=== PATIENT | female | born 1950 | race Caucasian/White ===

== ENCOUNTER 2018-02-22 14:25 | Observation (INO) | payer OTHER, SELFPAY ==
[2018-02-22] VITALS (14 sets, daily range): BP systolic 140–231; BP diastolic 55–88; PULSE 53–66; RESP 12–18; TEMP 36.6–36.8; O2SAT 94–98; BMI 51.9; BMI 50.3
--- NOTE | 2018-02-22 15:07 | CT_ITS ---
STUDY: CT BRAIN WITHOUT CONTRAST REASON FOR EXAM: Female, 67 years old. Dizzy x 2 days, nausea RADIATION DOSAGE (If Supplied By Facility): CTDIvol = ( 44.99 ) mGy, DLP = ( 812.98 ) mGycm TECHNIQUE: Transaxial CT imaging of the brain was performed without administration of intravenous contrast material. Individualized dose optimization techniques were used for this CT. COMPARISON: None. FINDINGS: Normal soft tissue structures. Normal calvarium. Normal size ventricles and extra-axial spaces for the patient's age. There are areas of decreased attenuation within the white matter tracts of the supratentorial brain, consistent with microvascular disease changes. Normal basal ganglia and thalami. Normal brainstem. Normal cerebellum. There is no intracranial hemorrhage. There are no findings of an acute ischemic infarction. Normal visualized paranasal sinuses. CT/Brain/Head without Contrast IMPRESSION: Chronic involutional changes of the brain. Electronically Signed: Rebekah Sánchez MD at 15:48 EDT Tel , Service support ,
--- NOTE | 2018-02-22 15:07 | EKG12_ITS ---
Test Reason : DIZZINESS Blood Pressure : / mmHG Vent. Rate : 059 BPM Atrial Rate : 059 BPM P-R Int : 238 ms QRS Dur : 102 ms QT Int : 440 ms P-R-T Axes : 070 -38 023 degrees QTc Int : 435 ms Sinus bradycardia with 1st degree A-V block Left axis deviation Poor R wave progression Abnormal ECG Confirmed by BETH GRACIA, BRAYDEN ([id number]), editorial specialist YESSICA HUMPHRIES ([id number]) on 02/24/2018 2:44:04 PM Referred By: PONCHO Confirmed By:BRAYDEN CAMPOS MD
--- NOTE | 2018-02-22 15:11 | RAD_ITS ---
STUDY: X-RAY CHEST REASON FOR EXAM: Female, 67 years old. COUGH, DIZZINESS TECHNIQUE: Single AP portable view of the chest. COMPARISON: None. FINDINGS: The lungs are clear and expanded. There is no demonstrated pleural abnormality. There is moderate cardiac enlargement. Normal mediastinum and colt. Normal visualized pulmonary arteries. Normal visualized aortic arch and descending thoracic aorta. Normal visualized thoracic spine. Normal visualized ribs, clavicles, and shoulders. There is no demonstrated abnormality of the visualized soft tissue structures of the upper abdomen. RAD/Chest 1 View IMPRESSION: There is moderate cardiac enlargement. Electronically Signed: Rebekah Sánchez MD at 15:38 EDT Tel , Service support ,
--- NOTE | 2018-02-22 15:12 | ED.DCSUM_ITS ---
- ER Visit Summary Date of Service: 02/22/18 Chief Complaint: [dizziness] History of Present Illness: The patient is a 67 F [who presents the emergency department with intermittent dizziness. Last 2 morning she woke up and felt very off balance. It lasted for a couple hours and then went away. This morning she had it as well but it has not gone away and seemed to get worse. She is also developed a headache some mild shortness of breath and nausea. She has a history of a stroke in 2016 in which she had left-sided numbness and weakness. She states it was preceded by similar symptoms. 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 She denies any chest pain. There is been no swelling. She had her blood pressure done at the lung doctor this morning and it was 128/63 reportedly. She does have some mild tingling in her hands bilaterally. No fevers chills abdominal pain or other symptoms. She is a remote history of smoking but quit 46 years ago] Physical Examination: [] Blood pressure 231/72 heart rate 55 WN WD NAD overweight PERRL EOMI MMM NECK supple and nontender, no masses RRR no murmur rub or gallop, no peripheral edema, symmetric radial pulses CTAB no respiratory distress ABDOMEN is soft and nontender, normal bowel sounds, no distension, no rebound or guarding SKIN is warm and dry no rashes Alert and Oriented x3, CN II-XII in tact, no motor or sensory deficits, gait normal No lymphadenopathy Mild dizziness with Hallpike regino bilaterally no appreciable nystagmus Test Results: [] Emergency Department Course and Treatment: [EKG is sinus at a rate of 59 with first-degree AV block and left axis deviation no acute ischemic changes. Screening labs were unremarkable. CT shows chronic involutional changes. On reevaluation after 10 of hydralazine her blood pressure did initially improved to 185 systolic however then increase to 207 systolic again. I did ask her to walk in a straight line she felt like everything was moving to the right and was unstable she was unable to walk without holding onto something. At this time given her malignant hypertension as well as her sensation of everything moving to the right I do think she requires admission for further workup for posterior circulation stroke and control of her blood pressure] Treatment Plan: [] Disposition: [Admit] Impression: [1. Disequilibrium 2. Malignant hypertension] This note was generated with [employer] dictation software. It may contain incorrect words, spelling, and punctuation that were not noted in review of the chart prior to signing ED Disposition - Plan for ED Patient: Chief Complaint: Dizziness Referrals: Les Valenzuela MD [Primary Care Provider] -
[2018-02-22] MEDS: hydrALAZINE 20 MG/ML Vial 10 MG IV ×2 (15:23→16:55)
[2018-02-22 15:24] LABS: Absolute Lymphocyte Count 1.84 X10^3/ul (0.83-4.51); Absolute Neutrophil Count 4.7 X10^3/uL (2.0-7.7); Basophil# 0.01 X10^3/uL; Basophil% 0.1 % (0-1); Eosinophil# 0.15 X10^3/uL; Hematocrit 38.9 % (37-47); Hemoglobin 12.6 g/dl (12.0-15.0); Lymphocyte # 1.84 X10^3/ul (4.0); Lymphocyte % 24.6 % (19-41); Mean Corp Hgb Conc 32.4 g/gl (32-36); Mean Corpuscular Hgb 32.6 pg (27.0-32.0); Mean Corpuscular Volume 100.8 fL (81-99); Mean Platelet Vol. 8.9 fl (6.2-12.0); Monocyte# 0.73 X10^3/uL; Monocyte% 9.8 % (0-10); Neutrophil # 4.74 X10^3/uL (2.7-7.7); Neutrophil % 63.4 % (47-70); Platelet Count 314 K/mm3 (150-450); Red Blood Count 3.86 M/mm3 (4.2-5.4); White Blood Count 7.5 K/mm3 (4.4-11.0)
[2018-02-22 15:28] LABS: International Normalized Ratio 1.1; Partial Thromboplast Time 31.5 Seconds (24.1-36.2); Prothrombin Time (Protime)PT. 14.1 SECONDS (11.7-14.9)
--- NOTE | 2018-02-22 15:29 | NURSING ---
NO OLD EKGS
[2018-02-22 15:33] LABS: Anion Gap 6 (5-15); BUN 13 mg/dL (7-18); BUN/Creat Ratio 14.5 RATIO (10-20); Calcium,Total 8.8 mg/dL (8.5-10.1); Chloride 104 mmol/L (98-107); EST Glomerular Filtration Rate 67 mL/min (>60); Est Glom Filt Rate - Afr Amer 81 mL/min (>60); Glucose 84 mg/dL (74-106); Potassium 4.1 mmol/L (3.5-5.1); Sodium Level 139 mmol/L (136-145)
--- NOTE | 2018-02-22 15:35 | CASEMGMT ---
Social Work Note In to meet with pt for initial assessment and pt being transported down to radiology for imaging. Jenna Shane, MAILING MANAGER, PIPE INSTALLER
[2018-02-22 15:42] LABS: POSITIVE COUNT NO; POSITIVE DIFFERENTIAL NO; POSITIVE MORPHOLOGY NO
--- NOTE | 2018-02-22 15:48 | CASEMGMT ---
Social Work Note Face to face with pt and her spouse and daughter. Introduced self and role at [facility]. The pt reports to live with her spouse in a one-story home with 5 [address] and handrails on either side. Denies access issues and DME consists of a rollator and cane. She uses her cane at her baseline. Pt reports to have access to transportation and is independent with ADL's. Confirms that her PCP is Dr. Valenzuela and she also sees Dr. Melara. Claims that she is to see Dr. Echevarria at [facility] in March. Her preferred pharmacy is [facility]. Educated to [facility] Med to Bed program from convenience at discharge. Pt made aware that RN CM will f/u with d/c planning. No needs anticipated at this time. Jenna Shane, COAL FEEDER OPERATOR, TOOTH CUTTER PINION
--- NOTE | 2018-02-22 16:45 | NURSING ---
PCU HYPERTENSIVE URGENCY [facility]
[2018-02-22] MEDS: Aspirin 81 MG TAB.CHEW 162 MG PO (16:55)
--- NOTE | 2018-02-22 16:56 | PCM.HP.STD ---
Problem List (1) History of lung cancer Status: Chronic Comment: Status post left lower lobe pneumectomy. (2) History of stroke Status: Chronic (3) Chronic thrombocytopenia Status: Chronic (4) Hyperlipidemia Status: Chronic (5) Anxiety Status: Chronic (6) Depression Status: Chronic (7) Type 2 diabetes mellitus Status: Chronic History of Present Illness Date of Admission: 02/22/18 Chief Complaint: Dizziness. The patient is a 67 year old F with past medical history as mentioned above presented to the ER because of dizziness. Her symptoms started 3 days ago with dizziness, described as spinning sensation and sometimes as unsteadiness, associated with frontal headache and off balance, aggravated by standing and minimally relieved with rest. In the first day, it was intermittent but has been increasing since yesterday and got worse this morning. She reported associated mild nausea without vomiting. She denied slurred speech, facial droop or mouth deviation. She denied focal arm or leg weakness. This morning, she checked her blood pressure at was 128/84. She stated that usually her blood pressure has been around 140-150 systolic but never been this much high today. In the ER, maximum blood pressure was 231/72. She received 2 dose of IV hydralazine and blood pressure remains above 200 systolic. Other vital signs are stable. Routine blood work was unremarkable. EKG revealed normal sinus rhythm first degree AV block, DC interval of 238 ms, no acute changes. Troponin is negative. CT scan brain showed no acute findings. Chest x-ray showed mild cardiomegaly, no acute infiltrate, consolidation or effusion. She is being admitted for hypertensive urgency with concern for posterior circulation stroke. Past Medical History Past Medical History (Chronic Problems): Chronic Problems Hypertension (Chronic) History of lung cancer (Chronic) Status post left lower lobe pneumectomy. History of stroke (Chronic) Chronic thrombocytopenia (Chronic) Hyperlipidemia (Chronic) Anxiety (Chronic) Depression (Chronic) Type 2 diabetes mellitus (Chronic) Allergies No Known Allergies Allergy (Verified 02/22/18 14:27) Home Medications: Ambulatory Orders Medication Instructions Recorded Alendronate Sodium [Alendronate 70 mg PO NICKERSON 02/22/18 Sodium] Amlodipine [Norvasc] 10 mg PO DAILY 02/22/18 Aspirin 81 mg PO DAILY 02/22/18 Fluoxetine HCl [Fluoxetine HCl] 40 mg PO DAILY 02/22/18 Hydroxyurea [Hydrea] 500 mg PO DAILY 02/22/18 Hydroxyzine HCl 25 mg PO TID PRN PRN 02/22/18 Lisinopril [Zestril] 5 mg PO DAILY 02/22/18 Lorazepam [Ativan] 0.5 mg PO BID PRN PRN 02/22/18 Metformin HCl [Metformin HCl ER] 500 mg PO BID 02/22/18 Metoprolol Tartrate [Lopressor 100 mg PO BID 02/22/18 (beta padmaja)] Simvastatin 20 mg PO QHS 02/22/18 Surgical History: noncontributory Psychiatric History: Anxiety, Depression 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 Denies: Difficulty Hearing, Ear Pain, Eye Pain, Nasal Congestion, Sore Throat Cardiovascular: Reports: Light Headedness. Denies: Chest Pain, Chest Pressure, Chest Tightness, Heaviness, Orthopnea, Syncope Respiratory: Denies: Cough, Hemoptysis, Pleuritic Pain, Shortness of Breath, Sputum production Gastrointestinal: Reports: Nausea. Denies: Abdominal Pain, Constipation, Diarrhea, Vomiting Genitourinary: Denies: Dysuria, Frequency, Hematuria Musculoskeletal: Denies: Arm Pain, Back Pain, Foot Pain Skin: Denies: Dryness, Rash Neurological: Reports: Balance problems, Headaches. Denies: Double vision, Slurred speech, Confusion, Incoordination, Numbness, Tingling, Tremor Psychiatric: Reports: Anxiety, Depression Endocrine: Denies: Change in Body Habitus, Polydipsia VTE Information - Inpt Only VTE Present on Admission: No VTE Mechan Device Prophylaxis: None VTE Pharm Prophylaxis ordered?: Yes - Physical Exam General: Alert, Oriented x3, Cooperative, No apparent distress HEENT: Atraumatic, PERRLA, EOMI, Normocephalic Oral: Moist Mucosa, No Gingival or Mucosal Lesions/ Ulcerations Neck: Supple, No JVD, Negative Carotid Bruits, Trachea Midline, Thyroid Normal Size and Texture Lungs: Clear to auscultation, No rhonchi, No wheeze, No rales, Diminished Cardiovascular: Regular rate, Regular Rhythm, Normal S1, Normal S2, No murmurs Abdomen: Bowel Sounds Present, Soft, Non Tender, Non-Distended, No Hepato-splenomegaly, Obese Extremities: No clubbing, No cyanosis, No edema Skin: No rashes, No breakdown Lymphatic: No Cervical, Supraclavicular, or Inguinal Adenopathy Neurological: Cranial nerves II-XII grossly intact, Motor Exam 5/5 strength throughout Psych/Mental Status: Normal Affect, Appropriate, Alert and oriented to time, place, person, mood and affect Vital Signs Temp Pulse Resp BP Pulse Ox 97.8 F 59 L 14 207/72 H 97 02/22/18 14:47 02/22/18 16:07 02/22/18 16:07 02/22/18 16:07 02/22/18 16:07 Oxygen Delivery Method Room Air Weight: 274 lb 14.663 oz Body Mass Index (BMI) 51.9 Laboratory Tests Past 24 Hrs 02/22/18 02/22/18 02/22/18 14:53 14:53 14:53 WBC 7.5 RBC 3.86 L Hgb 12.6 Hct 38.9 MCV 100.8 H MCH 32.6 H MCHC 32.4 RDW 14.0 RDW Differential 51.0 H Plt Count 314 MPV 8.9 Immature Gran % (Auto) 0.100 Neut % (Auto) 63.4 Lymph % (Auto) 24.6 [place] % (Auto) 9.8 Eos % (Auto) 2.0 Baso % (Auto) 0.1 Absolute Neuts (auto) 4.7 Absolute Lymphs (auto) 1.84 Total Counted Not Reportable PT 14.1 INR 1.1 APTT 31.5 Sodium 139 Potassium 4.1 Chloride 104 Carbon Dioxide 29.0 Anion Gap 6 BUN 13 Creatinine 0.90 Estim Creat Clear Calc 46.40 Est GFR (MDRD) Af Amer 81 Est GFR (MDRD) Non-Af 67 BUN/Creatinine Ratio 14.5 Glucose 84 Calcium 8.8 Troponin I < 0.015 Clinical Impression(s) from Imaging Studies Brain CT 02/22/18 15:07 IMPRESSION: Chronic involutional changes of the brain. Electronically Signed: Rebekah Sánchez MD at 15:48 EDT Tel , Service support , Chest X-Ray 02/22/18 15:11 IMPRESSION: There is moderate cardiac enlargement. Electronically Signed: Rebekah Sánchez MD at 15:38 EDT Tel , Service support , Assessment/Plan This is a 67 years old female patient presented to the emergency room because of dizziness with headache and she was found to have highly elevated blood pressure consistent with hypertensive emergency in addition to headache, vertigo, off balance symptoms and she is being admitted for treatment and evaluation for possible posterior circulation stroke. #1 hypertensive urgency: Maximum blood pressure was 231/72 upon arrival to ER. According to the patient, it was 128/84 at home. Usually, blood pressure runs around 140-[address] scan brain without acute infarction or hemorrhage. EKG showed normal sinus rhythm with first-degree AV block, no acute changes. Troponin is negative. BUN and creatinine are normal. Plan: Admit to PCU, cardiac monitoring, close monitoring of blood pressure, start IV hydralazine every 4 hours as needed, increase lisinopril to 20 mg p.o. twice daily, continue Norvasc and metoprolol, MRI brain, repeat CBC and BMP tomorrow morning, PT OT evaluation and treatment. #2 dizziness/vertigo/off balance: It is not clear if those symptoms are due to high blood pressure or because of other etiology such as posterior dislocation stroke. She has no focal deficit on exam. Plan: Gradual treatment of blood pressure, goal blood pressure this time is 160/90, MRI brain. #3 hypertension: Uncontrolled at this time, plan as above. #4 type 2 diabetes mellitus: ADA diet, Accu-Cheks, insulin sliding scale, continue metformin. #5 history of stroke: Plan as above, continue aspirin and statins. #6 anxiety/depression: Continue fluoxetine and Ativan. #7 chronic thrombocytopenia: She is on hydroxyurea, platelet count is normal. #8 history of lung cancer: Status post left lower lobe pneumectomy, in remission. #9 DVT prophylaxis: Subcu Lovenox. This note was generated with [employer] software. It may contain incorrect words, spelling, and punctuation that were not noted in checking the note before signing. Code Visit Inpatient E&M: 80815 Init Hosp L3
--- NOTE | 2018-02-22 17:03 | HP.PCM_ITS ---
Problem List (1) History of lung cancer Status: Chronic Comment: Status post left lower lobe pneumectomy. (2) History of stroke Status: Chronic (3) Chronic thrombocytopenia Status: Chronic (4) Hyperlipidemia Status: Chronic (5) Anxiety Status: Chronic (6) Depression Status: Chronic (7) Type 2 diabetes mellitus Status: Chronic History of Present Illness Date of Admission: 02/22/18 Chief Complaint: Dizziness. The patient is a 67 year old F with past medical history as mentioned above presented to the ER because of dizziness. Her symptoms started 3 days ago with dizziness, described as spinning sensation and sometimes as unsteadiness, associated with frontal headache and off balance, aggravated by standing and minimally relieved with rest. In the first day, it was intermittent but has been increasing since yesterday and got worse this morning. She reported associated mild nausea without vomiting. She denied slurred speech, facial droop or mouth deviation. She denied focal arm or leg weakness. This morning, she checked her blood pressure at was 128/84. She stated that usually her blood pressure has been around 140-150 systolic but never been this much high today. In the ER, maximum blood pressure was 231/72. She received 2 dose of IV hydralazine and blood pressure remains above 200 systolic. Other vital signs are stable. Routine blood work was unremarkable. EKG revealed normal sinus rhythm first degree AV block, ME interval of 238 ms, no acute changes. Troponin is negative. CT scan brain showed no acute findings. Chest x-ray showed mild cardiomegaly, no acute infiltrate, consolidation or effusion. She is being admitted for hypertensive urgency with concern for posterior circulation stroke. Past Medical History Past Medical History (Chronic Problems): Chronic Problems Hypertension (Chronic) History of lung cancer (Chronic) Status post left lower lobe pneumectomy. History of stroke (Chronic) Chronic thrombocytopenia (Chronic) Hyperlipidemia (Chronic) Anxiety (Chronic) Depression (Chronic) Type 2 diabetes mellitus (Chronic) Allergies No Known Allergies Allergy (Verified 02/22/18 14:27) Home Medications: Ambulatory Orders Medication Instructions Recorded Alendronate Sodium [Alendronate 70 mg PO NICKERSON 02/22/18 Sodium] Amlodipine [Norvasc] 10 mg PO DAILY 02/22/18 Aspirin 81 mg PO DAILY 02/22/18 Fluoxetine HCl [Fluoxetine HCl] 40 mg PO DAILY 02/22/18 Hydroxyurea [Hydrea] 500 mg PO DAILY 02/22/18 Hydroxyzine HCl 25 mg PO TID PRN PRN 02/22/18 Lisinopril [Zestril] 5 mg PO DAILY 02/22/18 Lorazepam [Ativan] 0.5 mg PO BID PRN PRN 02/22/18 Metformin HCl [Metformin HCl ER] 500 mg PO BID 02/22/18 Metoprolol Tartrate [Lopressor 100 mg PO BID 02/22/18 (beta padmaja)] Simvastatin 20 mg PO QHS 02/22/18 Surgical History: noncontributory Psychiatric History: Anxiety, Depression PATIENT NAVIGATOR History: No pertinent PATIENT NAVIGATOR history Lives: Spouse/ Significant Other Smoking Status: Former smoker Alcohol: Rare Drugs: None - *Family History Maternal History Items: No pertinent history Paternal History Items: No pertinent history Review of Systems Constitutional: Denies: Anorexia, Chills, Fever, Weakness Eyes: Denies: Blurred vision, Double vision, Drainage, Redness HEENT: Reports: Head Aches. Denies: Difficulty Hearing, Ear Pain, Eye Pain, Nasal Congestion, Sore Throat Cardiovascular: Reports: Light Headedness. Denies: Chest Pain, Chest Pressure, Chest Tightness, Heaviness, Orthopnea, Syncope Respiratory: Denies: Cough, Hemoptysis, Pleuritic Pain, Shortness of Breath, Sputum production Gastrointestinal: Reports: Nausea. Denies: Abdominal Pain, Constipation, Diarrhea, Vomiting Genitourinary: Denies: Dysuria, Frequency, Hematuria Musculoskeletal: Denies: Arm Pain, Back Pain, Foot Pain Skin: Denies: Dryness, Rash Neurological: Reports: Balance problems, Headaches. Denies: Double vision, Slurred speech, Confusion, Incoordination, Numbness, Tingling, Tremor Psychiatric: Reports: Anxiety, Depression Endocrine: Denies: Change in Body Habitus, Polydipsia VTE Information - Inpt Only VTE Present on Admission: No VTE Mechan Device Prophylaxis: None VTE Pharm Prophylaxis ordered?: Yes - Physical Exam General: Alert, Oriented x3, Cooperative, No apparent distress HEENT: Atraumatic, PERRLA, EOMI, Normocephalic Oral: Moist Mucosa, No Gingival or Mucosal Lesions/ Ulcerations Neck: Supple, No JVD, Negative Carotid Bruits, Trachea Midline, Thyroid Normal Size and Texture Lungs: Clear to auscultation, No rhonchi, No wheeze, No rales, Diminished Cardiovascular: Regular rate, Regular Rhythm, Normal S1, Normal S2, No murmurs Abdomen: Bowel Sounds Present, Soft, Non Tender, Non-Distended, No Hepato- splenomegaly, Obese Extremities: No clubbing, No cyanosis, No edema Skin: No rashes, No breakdown Lymphatic: No Cervical, Supraclavicular, or Inguinal Adenopathy Neurological: Cranial nerves II-XII grossly intact, Motor Exam 5/5 strength throughout Psych/Mental Status: Normal Affect, Appropriate, Alert and oriented to time, place, person, mood and affect Vital Signs Temp Pulse Resp BP Pulse Ox 97.8 F 59 L 14 207/72 H 97 02/22/18 14:47 02/22/18 16:07 02/22/18 16:07 02/22/18 16:07 02/22/18 16:07 Oxygen Delivery Method Room Air Weight: 274 lb 14.663 oz Body Mass Index (BMI) 51.9 Laboratory Tests Past 24 Hrs 02/22/18 02/22/18 02/22/18 14:53 14:53 14:53 WBC 7.5 RBC 3.86 L Hgb 12.6 Hct 38.9 MCV 100.8 H MCH 32.6 H MCHC 32.4 RDW 14.0 RDW Differential 51.0 H Plt Count 314 MPV 8.9 Immature Gran % (Auto) 0.100 Neut % (Auto) 63.4 Lymph % (Auto) 24.6 [place] % (Auto) 9.8 Eos % (Auto) 2.0 Baso % (Auto) 0.1 Absolute Neuts (auto) 4.7 Absolute Lymphs (auto) 1.84 Total Counted Not Reportable PT 14.1 INR 1.1 APTT 31.5 Sodium 139 Potassium 4.1 Chloride 104 Carbon Dioxide 29.0 Anion Gap 6 BUN 13 Creatinine 0.90 Estim Creat Clear Calc 46.40 Est GFR (MDRD) Af Amer 81 Est GFR (MDRD) Non-Af 67 BUN/Creatinine Ratio 14.5 Glucose 84 Calcium 8.8 Troponin I < 0.015 Clinical Impression(s) from Imaging Studies Brain CT 02/22/18 15:07 IMPRESSION: Chronic involutional changes of the brain. Electronically Signed: Rebekah Sánchez MD at 15:48 EDT Tel , Service support , Chest X-Ray 02/22/18 15:11 IMPRESSION: There is moderate cardiac enlargement. Electronically Signed: Rebekah Sánchez MD at 15:38 EDT Tel , Service support , Assessment/Plan This is a 67 years old female patient presented to the emergency room because of dizziness with headache and she was found to have highly elevated blood pressure consistent with hypertensive emergency in addition to headache, vertigo , off balance symptoms and she is being admitted for treatment and evaluation for possible posterior circulation stroke. #1 hypertensive urgency: Maximum blood pressure was 231/72 upon arrival to ER. According to the patient, it was 128/84 at home. Usually, blood pressure runs around 140-[address] scan brain without acute infarction or hemorrhage. EKG showed normal sinus rhythm with first-degree AV block, no acute changes. Troponin is negative. BUN and creatinine are normal. Plan: Admit to PCU, cardiac monitoring, close monitoring of blood pressure, start IV hydralazine every 4 hours as needed, increase lisinopril to 20 mg p.o. twice daily, continue Norvasc and metoprolol, MRI brain, repeat CBC and BMP tomorrow morning , PT OT evaluation and treatment. #2 dizziness/vertigo/off balance: It is not clear if those symptoms are due to high blood pressure or because of other etiology such as posterior dislocation stroke. She has no focal deficit on exam. Plan: Gradual treatment of blood pressure, goal blood pressure this time is 160/90, MRI brain. #3 hypertension: Uncontrolled at this time, plan as above. #4 type 2 diabetes mellitus: ADA diet, Accu-Cheks, insulin sliding scale, continue metformin. #5 history of stroke: Plan as above, continue aspirin and statins. #6 anxiety/depression: Continue fluoxetine and Ativan. #7 chronic thrombocytopenia: She is on hydroxyurea, platelet count is normal. #8 history of lung cancer: Status post left lower lobe pneumectomy, in remission. #9 DVT prophylaxis: Subcu Lovenox. This note was generated with [employer] software. It may contain incorrect words, spelling, and punctuation that were not noted in checking the note before signing. Code Visit Inpatient E&M: 95307 Init Hosp L3
--- NOTE | 2018-02-22 17:34 | MRI_ITS ---
STUDY: MRI BRAIN WITHOUT CONTRAST REASON FOR EXAM: Female, 67 years old. Vertigo. Hypertension urgency versus stroke. TECHNIQUE: Standardized multiplanar fat and water weighted pulse sequences were obtained. Overall limited exam secondary to motion artifact. COMPARISON: None. FINDINGS: There is mild cerebral atrophy with widening of the extra-axial spaces and ventricular dilatation. There are a limited number of small white matter hyperintensities, distributed throughout the deep white matter tracts of the cerebral hemispheres, consistent with mild chronic white matter ischemic changes. Normal bilateral basal ganglia. Normal thalami. There is no extra-axial fluid accumulation. Normal flow voids within the major intracranial circulation suggesting patency by spin echo criteria. Normal sella turcica, pituitary gland, infundibular stalk, optic chiasm and hypothalamus. Normal tectal plate and pineal gland. Normal midbrain, elias and medulla. Normal cerebellum. Normal basal cisterns. Normal bilateral temporal bones. Normal bilateral internal auditory canals. No demonstrated orbital abnormality, within the constraints of a routine brain study. Normal visualized paranasal sinuses. Normal calvarium and skull base. Normal visualized soft tissue structures. Normal visualized upper cervical spine. MRI/Brain without Contrast IMPRESSION: Overall limited exam secondary to motion artifact with no evidence of acute intracranial bleed, mass or ischemia. Electronically Signed: Rogers Das DO at 23:27 EDT , Service support ,
[2018-02-22] MEDS: Acetaminophen 325 MG Tablet 650 MG PO (18:39)
[2018-02-22] MEDS: LORazepam 2 MG/ML Syringe IV (18:39)
[2018-02-22] MEDS: Lisinopril 20 MG Tablet PO (22:51)
[2018-02-22] MEDS: Atorvastatin Calcium 10 MG Tablet PO (22:51)
[2018-02-22] MEDS: Metoprolol Tartrate 100 MG Tablet PO (22:51)
[2018-02-23] VITALS (9 sets, daily range): BP systolic 132–186; BP diastolic 58–72; PULSE 54–65; RESP 14–16; TEMP 36.6; O2SAT 92–97; BMI 50.3
[2018-02-23 00:11] LABS: Bedside Glucose 118 mg/dL (70-110)
[2018-02-23 06:57] LABS: Absolute Lymphocyte Count 1.75 X10^3/ul (0.83-4.51); Absolute Neutrophil Count 4.7 X10^3/uL (2.0-7.7); Basophil# 0.02 X10^3/uL; Basophil% 0.3 % (0-1); Eosinophil# 0.14 X10^3/uL; Eosinophils% 1.9 % (0-5); Hematocrit 37.1 % (37-47); Hemoglobin 12.4 g/dl (12.0-15.0); Lymphocyte # 1.75 X10^3/ul (4.0); Lymphocyte % 24.1 % (19-41); Mean Corp Hgb Conc 33.4 g/gl (32-36); Mean Corpuscular Hgb 33.9 pg (27.0-32.0); Mean Corpuscular Volume 101.4 fL (81-99); Mean Platelet Vol. 8.9 fl (6.2-12.0); Monocyte# 0.68 X10^3/uL; Monocyte% 9.4 % (0-10); Neutrophil # 4.65 X10^3/uL (2.7-7.7); Neutrophil % 64.2 % (47-70); Platelet Count 312 K/mm3 (150-450); RBC Distribution Width CV 13.9 % (11.6-14.6); RBC Distribution Width SD 50.3 fl (35.1-43.9); Red Blood Count 3.66 M/mm3 (4.2-5.4); White Blood Count 7.3 K/mm3 (4.4-11.0)
[2018-02-23 06:58] LABS: POSITIVE COUNT NO; POSITIVE DIFFERENTIAL NO; POSITIVE MORPHOLOGY NO
[2018-02-23 07:04] LABS: Anion Gap 10 (5-15); BUN 13 mg/dL (7-18); BUN/Creat Ratio 17.7 RATIO (10-20); Calcium,Total 8.4 mg/dL (8.5-10.1); Chloride 104 mmol/L (98-107); Creatinine, Serum 0.73 mg/dL (0.55-1.02); EST Glomerular Filtration Rate 84 mL/min (>60); Est Glom Filt Rate - Afr Amer 102 mL/min (>60); Estimated Creatinine Clearance 41.76 ml/min; Glucose 110 mg/dL (74-106); Potassium 3.9 mmol/L (3.5-5.1); Sodium Level 141 mmol/L (136-145)
[2018-02-23 07:06] LABS: Bedside Glucose 118 mg/dL (70-110)
[2018-02-23] MEDS: Aspirin 81 MG TAB.CHEW PO (09:04)
[2018-02-23] MEDS: FLUoxetine 20 MG Capsule 40 MG PO (09:06)
[2018-02-23] MEDS: Lisinopril 20 MG Tablet PO (09:07)
[2018-02-23] MEDS: amLODIPine 10 MG Tablet PO (09:07)
[2018-02-23] MEDS: Hydroxyurea 500 MG Capsule PO (09:07)
[2018-02-23] MEDS: Metoprolol Tartrate 100 MG Tablet PO (09:08)
[2018-02-23] MEDS: Enoxaparin 40 MG/0.4 ML Syringe SC (09:20)
--- NOTE | 2018-02-23 11:28 | DCINST_ITS ---
- Discharge Diagnoses Current Active Problems: Current Active and Chronic Problems Hypertension (Chronic) History of lung cancer (Chronic) Status post left lower lobe pneumectomy. History of stroke (Chronic) Chronic thrombocytopenia (Chronic) Hyperlipidemia (Chronic) Anxiety (Chronic) Depression (Chronic) Type 2 diabetes mellitus (Chronic) You will use the following diet at home:: Calorie/Carbohydrate Controlled ( specify 1200, 1400, etc) - 1800 kacey / day, Cardiac, Other - reduce caffeine intake Your food should be the consistency of: Regular Your liquids should be the consistency of: Regular/Thin Discharge Activity: Return to Normal Activity Allergies/Adverse Reactions: Allergies No Known Allergies Allergy (Verified 02/22/18 14:27) Medications to take at Discharge Alendronate Sodium 70 mg PO NICKERSON 02/22/18 Amlodipine [Norvasc] 10 mg PO DAILY 02/22/18 Aspirin 81 mg PO DAILY 02/22/18 Fluoxetine HCl 40 mg PO DAILY 02/22/18 Hydroxyurea [Hydrea] 500 mg PO DAILY 02/22/18 Hydroxyzine HCl 25 mg PO TID PRN PRN 02/22/18 Lorazepam [Ativan] 0.5 mg PO BID PRN PRN 02/22/18 Metformin HCl [Metformin HCl ER] 500 mg PO BID 02/22/18 Metoprolol Tartrate [Lopressor (beta padmaja)] 100 mg PO BID 02/22/18 Simvastatin 20 mg PO QHS 02/22/18 Lisinopril [Zestril] 20 mg PO BID #60 tab 02/23/18 The following prescriptions were given: Lisinopril [Zestril] 20 mg PO BID #60 tab Primary Care Physician: Les Valenzuela MD [Primary Care Provider] - Please follow up with your Primary Care Physician in: 1-2 weeks Proposed Discharge Date: 02/23/18
[2018-02-23 12:00] LABS: Bedside Glucose 100 mg/dL (70-110)
--- NOTE | 2018-02-23 12:44 | PCM.DC.SUM ---
<Alonzo Moore - Last Filed: 02/23/18 12:44> Discharge Date and Diagnosis Date of Admission: 02/22/18 Date of Discharge: 02/23/18 - Primary Discharge Diagnosis HTN urgency Anxiety T2DM Depression/Anxiety Chronic thrombocytopenia Hx CVA lung cancer in remission s/p lobectomy JAJA - Secondary Discharge Diagnosis Chronic Problems Hypertension (Chronic) History of lung cancer (Chronic) Status post left lower lobe pneumectomy. History of stroke (Chronic) Chronic thrombocytopenia (Chronic) Hyperlipidemia (Chronic) Anxiety (Chronic) Depression (Chronic) Type 2 diabetes mellitus (Chronic) Hospital Course and Treatment Imaging Results: MRI/Brain without Contrast IMPRESSION: Overall limited exam secondary to motion artifact with no evidence of acute intracranial bleed, mass or ischemia. CT/Brain/Head without Contrast IMPRESSION: Chronic involutional changes of the brain. RAD/Chest 1 View IMPRESSION: There is moderate cardiac enlargement. Operations: None Procedures: None Summary of Care Provided: Physical exam on day of discharge: General: Resting comfortably NAD Psych: A/Ox3 normal affect HEENT: PEARRLA AT NC Neck: Supple NT CV: RRR no m/t/r/g/h Resp: CTA Abd: [id number] Soft NT no guarding or rigidity, morbidly obese. Ext: DP2+= no edema Skin: W/D normal turgor Lymph/Heme: No active bleeding or adenopathy Neuro: CN2-12 intact Hospital course: The patient is a 67 year old F with a PMHx of CVA, T2DM, Dep/Anx, JAJA compliant with CPAP, thrombocytopenia, HLD, HTN who presented to the ER with dizziness for 3 days and a frontal BL LOJA. She was found to have severely elevated blood pressure up to [address] head was obtained which was negative, followed by MRI which was also negative. She was admitted and placed on tele and monitored overnight. Her lisinopril was increased to 20 BID. Her BP improved with the adjustments and the following morning her pressures had improved. She was discharged home in stable condition and advised to follow up with her PCP. I also advised decreasing her caffeine intake as she did admit to heavy consumption throughout the day. This patient was seen by Alonzo Moore PA-C under the supervision of Doctor Mukund. [] Discharge Activity: Return to Normal Activity Home Medications: Medications to take at Discharge Alendronate Sodium 70 mg PO NICKERSON 02/22/18 Amlodipine [Norvasc] 10 mg PO DAILY 02/22/18 Aspirin 81 mg PO DAILY 02/22/18 Fluoxetine HCl 40 mg PO DAILY 02/22/18 Hydroxyurea [Hydrea] 500 mg PO DAILY 02/22/18 Hydroxyzine HCl 25 mg PO TID PRN PRN 02/22/18 Lorazepam [Ativan] 0.5 mg PO BID PRN PRN 02/22/18 Metformin HCl [Metformin HCl ER] 500 mg PO BID 02/22/18 Metoprolol Tartrate [Lopressor (beta padmaja)] 100 mg PO BID 02/22/18 Simvastatin 20 mg PO QHS 02/22/18 Lisinopril [Zestril] 20 mg PO BID #60 tab 02/23/18 Following Prescrptions Were Given to Patient: Lisinopril [Zestril] 20 mg PO BID #60 tab Primary Care Physician: Les Valenzuela MD [Primary Care Provider] - Please follow up with your Primary Care Physician in: 1-2 weeks Please Follow Up With: Les Valenzuela MD Disposition: Home Minutes spent on discharge:: 35 Patient Condition:: Stable Medical Necessity - Tobacco Use Smoking Status: Never smoker Meaningful Use Info Meaningful Use Diagnoses (Choose all that apply): None applicable <Fernando Duval - Last Filed: 02/23/18 16:33> Discharge Date and Diagnosis - Secondary Discharge Diagnosis Chronic Problems Hypertension (Chronic) History of lung cancer (Chronic) Status post left lower lobe pneumectomy. History of stroke (Chronic) Chronic thrombocytopenia (Chronic) Hyperlipidemia (Chronic) Anxiety (Chronic) Depression (Chronic) Type 2 diabetes mellitus (Chronic) Hospital Course and Treatment Summary of Care Provided: This patient was seen in conjunction with Alonzo RICHARD. I have independently interviewed and examined the patient and reviewed pertinent history, examination findings, laboratory and plan of management. I have reviewed the note and agree with the documented findings with the few additional points. In brief, patient is admitted for dizziness and frontal headache, near syncope symptoms due to hypertensive urgency. Very high blood pressure, systolic blood pressure 231. Including CT head and MRI was negative. Her pressure is controlled. Advised monitor home BP and follow with PCP. I have discussed my assessment with Alonzo RICHARD and orders have been reviewed. [] Code Visit OBSV E&M: 86777 Observation care discharge
--- NOTE | 2018-02-23 12:51 | DS.PCM_ITS ---
<Alonzo Moore - Last Filed: 02/23/18 12:44> Discharge Date and Diagnosis Date of Admission: 02/22/18 Date of Discharge: 02/23/18 - Primary Discharge Diagnosis HTN urgency Anxiety T2DM Depression/Anxiety Chronic thrombocytopenia Hx CVA lung cancer in remission s/p lobectomy JAJA - Secondary Discharge Diagnosis Chronic Problems Hypertension (Chronic) History of lung cancer (Chronic) Status post left lower lobe pneumectomy. History of stroke (Chronic) Chronic thrombocytopenia (Chronic) Hyperlipidemia (Chronic) Anxiety (Chronic) Depression (Chronic) Type 2 diabetes mellitus (Chronic) Hospital Course and Treatment Imaging Results: MRI/Brain without Contrast IMPRESSION: Overall limited exam secondary to motion artifact with no evidence of acute intracranial bleed, mass or ischemia. CT/Brain/Head without Contrast IMPRESSION: Chronic involutional changes of the brain. RAD/Chest 1 View IMPRESSION: There is moderate cardiac enlargement. Operations: None Procedures: None Summary of Care Provided: Physical exam on day of discharge: General: Resting comfortably NAD Psych: A/Ox3 normal affect HEENT: PEARRLA AT NC Neck: Supple NT CV: RRR no m/t/r/g/h Resp: CTA Abd: [id number] Soft NT no guarding or rigidity, morbidly obese. Ext: DP2+= no edema Skin: W/D normal turgor Lymph/Heme: No active bleeding or adenopathy Neuro: CN2-12 intact Hospital course: The patient is a 67 year old F with a PMHx of CVA, T2DM, Dep/Anx, JAJA compliant with CPAP, thrombocytopenia, HLD, HTN who presented to the ER with dizziness for 3 days and a frontal BL LOJA. She was found to have severely elevated blood pressure up to [address] head was obtained which was negative, followed by MRI which was also negative. She was admitted and placed on tele and monitored overnight. Her lisinopril was increased to 20 BID. Her BP improved with the adjustments and the following morning her pressures had improved. She was discharged home in stable condition and advised to follow up with her PCP. I also advised decreasing her caffeine intake as she did admit to heavy consumption throughout the day. This patient was seen by Alonzo Moore PA-C under the supervision of Doctor Mukund. [] Discharge Activity: Return to Normal Activity Home Medications: Medications to take at Discharge Alendronate Sodium 70 mg PO NICKERSON 02/22/18 Amlodipine [Norvasc] 10 mg PO DAILY 02/22/18 Aspirin 81 mg PO DAILY 02/22/18 Fluoxetine HCl 40 mg PO DAILY 02/22/18 Hydroxyurea [Hydrea] 500 mg PO DAILY 02/22/18 Hydroxyzine HCl 25 mg PO TID PRN PRN 02/22/18 Lorazepam [Ativan] 0.5 mg PO BID PRN PRN 02/22/18 Metformin HCl [Metformin HCl ER] 500 mg PO BID 02/22/18 Metoprolol Tartrate [Lopressor (beta padmaja)] 100 mg PO BID 02/22/18 Simvastatin 20 mg PO QHS 02/22/18 Lisinopril [Zestril] 20 mg PO BID #60 tab 02/23/18 Following Prescrptions Were Given to Patient: Lisinopril [Zestril] 20 mg PO BID #60 tab Primary Care Physician: Les Valenzuela MD [Primary Care Provider] - Please follow up with your Primary Care Physician in: 1-2 weeks Please Follow Up With: Les Valenzuela MD Disposition: Home Minutes spent on discharge:: 35 Patient Condition:: Stable Medical Necessity - Tobacco Use Smoking Status: Never smoker Meaningful Use Info Meaningful Use Diagnoses (Choose all that apply): None applicable <Fernando Duval - Last Filed: 02/23/18 16:33> Discharge Date and Diagnosis - Secondary Discharge Diagnosis Chronic Problems Hypertension (Chronic) History of lung cancer (Chronic) Status post left lower lobe pneumectomy. History of stroke (Chronic) Chronic thrombocytopenia (Chronic) Hyperlipidemia (Chronic) Anxiety (Chronic) Depression (Chronic) Type 2 diabetes mellitus (Chronic) Hospital Course and Treatment Summary of Care Provided: This patient was seen in conjunction with Alonzo RICHARD. I have independently interviewed and examined the patient and reviewed pertinent history, examination findings, laboratory and plan of management. I have reviewed the note and agree with the documented findings with the few additional points. In brief, patient is admitted for dizziness and frontal headache, near syncope symptoms due to hypertensive urgency. Very high blood pressure, systolic blood pressure 231. Including CT head and MRI was negative. Her pressure is controlled. Advised monitor home BP and follow with PCP. I have discussed my assessment with Alonzo RICHARD and orders have been reviewed. [] Code Visit OBSV E&M: 54946 Observation care discharge
== END 2018-02-23 13:00 | disposition home or self-care (01) | DRG 305 ==
LOC: ED 15:37 → PCU 17:16
PROVIDERS: Admitting Provider Hospitalist; Emergency Provider Emergency Medicine; Family Provider Family Medicine; PCP Family Medicine; Visit Provider Internal Medicine
DX: I16.0 Hypertensive urgency (principal); Z68.43 Body mass index [BMI] 50.0-59.9, adult; I10 Essential (primary) hypertension; E11.9 Type 2 diabetes mellitus without complications; D69.6 Thrombocytopenia, unspecified; E78.5 Hyperlipidemia, unspecified; G47.33 Obstructive sleep apnea (adult) (pediatric); F32.9 Major depressive disorder, single episode, unspecified; F41.9 Anxiety disorder, unspecified; Z79.899 Other long term (current) drug therapy; Z86.73 Personal history of transient ischemic attack (TIA), and cerebral infarction without residual deficits; Z85.110 Personal history of malignant carcinoid tumor of bronchus and lung; Z87.891 Personal history of nicotine dependence; Z90.2 Acquired absence of lung [part of]; E66.01 Morbid (severe) obesity due to excess calories
CPT/HCPCS: 36415; 70450; 70551; 71045; 80048; 82962; 84484; 85025; 85610; 85730; 93005; 96372; 96374; 96375; 96376; 97162; 97166; 99218; 99285; A4216; G0378

== ENCOUNTER → 2018-05-02 20:08 | Outpatient (CLI) | payer OTHER, SELFPAY | PROVIDERS: Family Provider Family Medicine; PCP Family Medicine; Visit Provider Internal Medicine Pulmonary Disease | DX: G47.33 Obstructive sleep apnea (adult) (pediatric) (principal) | CPT/HCPCS: 95811 ==

== ENCOUNTER 2019-06-04 02:06 | Inpatient (IN) | payer MEDICARE, OTHER, SELFPAY ==
[2019-06-04] VITALS (23 sets, daily range): BP systolic 103–163; BP diastolic 50–82; PULSE 62–90; RESP 18–25; TEMP 36.5–37.6; O2SAT 83–96; BMI 51.4; BMI 50.5; BMI 50.6
--- NOTE | 2019-06-04 02:09 | ED.RN ---
CALLED FOR EKG PER RN REQUEST, PULLED OLD EKGS FOR
--- NOTE | 2019-06-04 02:23 | EKG12_ITS ---
Test Reason : SOB Blood Pressure : / mmHG Vent. Rate : 081 BPM Atrial Rate : 081 BPM P-R Int : 176 ms QRS Dur : 098 ms QT Int : 384 ms P-R-T Axes : 000 -41 079 degrees QTc Int : 446 ms Sinus rhythm with Premature atrial complexes Left axis deviation Abnormal ECG Confirmed by ZARA GRACIA, KEILA ([id number]), proposal editor SEVERIANO LOMELI ([id number]) on 06/04/2019 9:13:10 AM Referred By: Kash Bellamy Confirmed By:KEILA ZUÑIGA MD
--- NOTE | 2019-06-04 02:24 | ED.DCSUM_ITS ---
History of Present Illness Chief Complaint: Shortness of Breath Narrative: Patient is a 68-year-old female who presents with shortness of breath. She has had a chronic cough since October. She has undergone some outpatient evaluation for this. She had pulmonary function tests and was told she did not have asthma. 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 She did have a chest x-ray which showed no recurrence of mass or cancer. She did follow-up with her oncologist. They thought her chronic cough may be due to reflux and she was started on medication for GERD but it is not helping. Over the last week she has developed shortness of breath which became more severe tonight. She was hypoxic for EMS and was given a DuoNeb. She does not really have other infectious symptoms such as fevers chills congestion rhinorrhea. Her cough is nonproductive although she does feel like her chest is congested. She denies chest pain vomiting diarrhea abdominal pain. She does not have a history of coronary disease or CHF. She is treated for diabetes, hypertension, hyperlipidemia. She is not on any home oxygen. Past Medical History - Allergies and Home Meds Allergies/Adverse Reactions: Allergies No Known Allergies Allergy (Verified 02/22/18 14:27) Primary Care Physician: Les Valenzuela MD [Primary Care Provider] - Past Medical History: - - Diabetes, hypertension, hyperlipidemia, carcinoid Surgical History: noncontributory Smoking Status: Former smoker - Family History Maternal Family History: Reports: No pertinent history Paternal Family History: Reports: No pertinent history Review of Systems All systems negative except as indicated General: Denies: Fever Cardiovascular: Denies: Chest pain Respiratory: Reports: Dyspnea, Cough. Denies: Sputum Gastrointestinal: Denies: Abdominal pain, Nausea, Vomiting, Diarrhea Physical Exam Vital Signs/Narrative: Vital Signs Temp Pulse Resp BP Pulse Ox 06/04/19 02:07 98.7 F 83 25 H 152/63 H 83 Inital Vital Signs reviewed: Yes General: Acute Distress Head: Normocephalic, Atraumatic Eyes: EOMI ENT: Moist mucous membranes Neck: Supple Cardiovascular: - - Heart is regular rate and rhythm I do not appreciate murmur Respiratory: - - Tachypnea with increased work of breathing, speaking short sentences, bibasilar rales and scattered wheezes Abdomen: Soft, Nontender Skin: Normal color Neurological: Alert Psychological: Normal affect Diagnostic/Tx/Re-eval Impressions Chest X-Ray 06/04/19 02:40 IMPRESSION: Scattered new pulmonary opacities within the right greater than left lung concerning for underlying pneumonia. Follow-up to resolution recommended. Electronically Signed: Mauricio Christopher, at 3:00 EDT Tel , Service support , 06/04/19 02:40 Chest 1 View (Portable) [RAD] Stat Laboratory Results 06/04/19 06/04/19 06/04/19 02:20 02:20 02:20 WBC 20.9 H RBC 3.71 L Hgb 11.5 L Hct 34.1 L MCV 91.9 MCH 31.0 MCHC 33.7 RDW Std Deviation 45.1 H RDW Coeff of Erica 13.2 Plt Count 352 MPV 9.6 Immature Gran % (Auto) 1.600 H Neut % (Auto) 78.3 H Lymph % (Auto) 9.2 L [place] % (Auto) 10.0 Eos % (Auto) 0.5 Baso % (Auto) 0.4 Absolute Neuts (auto) 16.4 H Absolute Lymphs (auto) 1.92 Nucleated RBC % 0.2 Differential Comment SCANNED Diff Path Review May foll Specimen Type Sample Site pH Bicarbonate Actual POC Total CO2 Base Excess O2 Saturation ABG pCO2 ABG pO2 Wayne Test O2 Delivery Device Liter Flow Blood Gas Notified Whom Blood Gas Notified Time Sodium 136 Potassium 3.8 Chloride 102 Carbon Dioxide 28.0 Anion Gap 6 BUN 18 Creatinine 0.88 Estim Creat Clear Calc 46.81 Est GFR (MDRD) Af Amer 82 Est GFR (MDRD) Non-Af 68 BUN/Creatinine Ratio 20.4 H Glucose 147 H Lactic Acid 1.5 Calcium 8.7 Troponin I < 0.015 B-Natriuretic Peptide 06/04/19 06/04/19 02:20 02:47 WBC RBC Hgb Hct MCV MCH MCHC RDW Std Deviation RDW Coeff of Erica Plt Count MPV Immature Gran % (Auto) Neut % (Auto) Lymph % (Auto) [place] % (Auto) Eos % (Auto) Baso % (Auto) Absolute Neuts (auto) Absolute Lymphs (auto) Nucleated RBC % Differential Comment Diff Path Review Specimen Type ART Sample Site L Radial pH 7.43 Bicarbonate Actual 28.4 H POC Total CO2 30 Base Excess 4 H O2 Saturation 90 L ABG pCO2 42.7 ABG pO2 56 L Wayne Test POS O2 Delivery Device Nasal Can Liter Flow 4.0 Blood Gas Notified Whom ED MD Blood Gas Notified Time 240 Sodium Potassium Chloride Carbon Dioxide Anion Gap BUN Creatinine Estim Creat Clear Calc Est GFR (MDRD) Af Amer Est GFR (MDRD) Non-Af BUN/Creatinine Ratio Glucose Lactic Acid Calcium Troponin I B-Natriuretic Peptide 58.8 - Medical Decision Making EKG shows sinus rhythm with a PAC at a rate of 81 no acute ischemic changes unchanged from prior. Patient underwent the above work-up. Labs are notable for leukocytosis. Chest x-ray appears to show multifocal pneumonia. Lactic acid is normal. Troponin and BNP were normal. Patient was treated here with a DuoNeb aerosol with improvement in symptoms. She was given IV Levaquin. Her blood pressure and heart rate have been stable. Patient will be discussed with the hospitalist and admitted. ED Disposition - Plan for ED Patient: Disposition: Acute Care Hospital [facility] Diagnosis: Pneumonia, Respiratory failure with hypoxia Referrals: Les Valenzuela MD [Primary Care Provider] -
[2019-06-04 02:32] LABS: Absolute Lymphocyte Count 1.92 X10^3/uL (0.83-4.51); Absolute Neutrophil Count 16.4 X10^3/uL (2.0-7.7); Basophil# 0.09 X10^3/uL; Basophil% 0.4 % (0-1); Eosinophil# 0.11 X10^3/uL; Eosinophils% 0.5 % (0-5); Hematocrit 34.1 % (37-47); Hemoglobin 11.5 g/dL (12.0-15.0); Lymphocyte # 1.92 X10^3/ul (4.0); Lymphocyte % 9.2 % (19-41); Mean Corp Hgb Conc 33.7 g/dL (32-36); Mean Corpuscular Volume 91.9 fL (81-99); Mean Platelet Vol. 9.6 fl (6.2-12.0); NRBC Flagged by Analyzer 0.2 % (0-5); Neutrophil # 16.35 X10^3/uL (2.7-7.7); Neutrophil % 78.3 % (47-70); POSITIVE DIFFERENTIAL YES; Platelet Count 352 K/mm3 (150-450); RBC Distribution Width CV 13.2 % (11.6-14.6); RBC Distribution Width SD 45.1 fl (35.1-43.9); Red Blood Count 3.71 M/mm3 (4.2-5.4); White Blood Count 20.9 K/mm3 (4.4-11.0)
[2019-06-04 02:33] LABS: Differential Indicated SCAN CRITERIA MET
[2019-06-04] MEDS: Ipratropium/Albuterol Sulfate 3 ML AMPUL.NEB INHALATION ×4 (02:33→18:57)
--- NOTE | 2019-06-04 02:40 | RAD_ITS ---
STUDY: X-RAY CHEST REASON FOR EXAM: Female, 68 years old. Shortness of breath and cough TECHNIQUE: AP portable COMPARISON: 02/22/2018 FINDINGS: There are new patchy bilateral pulmonary opacities within the right greater then left lung. There is mild cardiac enlargement. Normal mediastinum and colt. Normal visualized pulmonary arteries. Normal visualized aortic arch and descending thoracic aorta. Normal visualized thoracic spine. Normal visualized ribs, clavicles, and shoulders. There is no demonstrated abnormality of the visualized soft tissue structures of the upper abdomen. RAD/Chest 1 View (Portable) IMPRESSION: Scattered new pulmonary opacities within the right greater than left lung concerning for underlying pneumonia. Follow-up to resolution recommended. Electronically Signed: Mauricio Christopher, at 3:00 EDT Tel , Service support ,
[2019-06-04 02:50] LABS: Anion Gap 6 (5-15); BUN 18 mg/dL (7-18); BUN/Creat Ratio 20.4 RATIO (10-20); Calcium,Total 8.7 mg/dL (8.5-10.1); Chloride 102 mmol/L (98-107); Creatinine, Serum 0.88 mg/dL (0.55-1.02); EST Glomerular Filtration Rate 68 mL/min (>60); Est Glom Filt Rate - Afr Amer 82 mL/min (>60); Estimated Creatinine Clearance 46.81 ml/min; Glucose 147 mg/dL (74-106); Potassium 3.8 mmol/L (3.5-5.1); Sodium Level 136 mmol/L (136-145)
[2019-06-04 02:51] LABS: Allen Test POS; Base Excess 4 mmol/L (-2 to +2); Bicarbonate 28.4 mmol/L (22-26); Blood Gas Specimen Type ART; O2 Delivery Device Nasal Can; PO2 56 mmHG (75-100); SITE L Radial; SO2 90 % (95-99); Time Given 240; Total Carbon Dioxide 30 mmol/L; pCO2 42.7 mmHg (35-45); pH 7.43 (7.35-7.45)
[2019-06-04 03:12] LABS: Differential Comment SCANNED
[2019-06-04 03:13] LABS: Lactic Acid 1.5 mmol/L (0.4-2.0)
[2019-06-04 03:22] LABS: BNP,B-Type NATRIURETIC PEPTIDE 58.8 pg/mL (0-100)
--- NOTE | 2019-06-04 03:22 | PCM.HP.STD ---
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 Associated with her symptom is nonproductive cough. She has shortness of breath at rest which increases markedly with exertion. At the emergency department her oxygen saturation was noted to be 83% on room air. ABG was not remarkable. Patient has an extensive cough to the point that she has lost her voice. She has tried Tussin DM and Mucinex DM and all has not helped with her cough. Since October of this year (2018) patient she has been having a chronic cough. Outpatient test rule out asthma. Patient was treated for GERD but her cough persisted. And in regard to her carcinoid tumor of the lung she was told that she does not have any carcinoid tumor at this time. In regard to a history of carcinoid tumor she followed up with Dr. Melara who had previously treated her for thrombocytopenia. At the emergency department she was found to have tachypnea; and leukocytosis. A chest x-ray was concerning for multifocal pneumonia and she was started on Levaquin. Past Medical History Past Medical History (Chronic Problems): Chronic Problems Hypertension (Chronic) History of lung cancer (Chronic) Status post left lower lobe pneumectomy. History of stroke (Chronic) Chronic thrombocytopenia (Chronic) Hyperlipidemia (Chronic) Anxiety (Chronic) Depression (Chronic) Type 2 diabetes mellitus (Chronic) Allergies No Known Allergies Allergy (Verified 02/22/18 14:27) Home Medications: Ambulatory Orders Medication Instructions Recorded Alendronate Sodium 70 mg PO NICKERSON 02/22/18 Amlodipine [Norvasc] 10 mg PO DAILY 02/22/18 Aspirin 81 mg PO DAILY 02/22/18 Fluoxetine HCl 40 mg PO DAILY 02/22/18 Hydroxyurea [Hydrea] 500 mg PO QODAY 02/22/18 Hydroxyzine HCl 25 mg PO QHS 02/22/18 Metformin HCl [Metformin HCl ER] 500 mg PO BID 02/22/18 Metoprolol Tartrate [Lopressor 100 mg PO DAILY 02/22/18 (beta padmaja)] Simvastatin 20 mg PO QHS 02/22/18 Lisinopril [Zestril] 20 mg PO DAILY 06/04/19 Surgical History: tonsillectomy, - - Surgery for carcinoid tumor; section; knee surgery; several oil deposits removed from scalp. Psychiatric History: Anxiety, Depression CLINICAL PHARMACY SPECIALIST History: No pertinent CLINICAL PHARMACY SPECIALIST history Lives: Spouse/ Significant Other Smoking Status: Former smoker Alcohol: None - *Family History Maternal History Items: Diabetes, Hypertension Paternal History Items: - - He does not know her paternal medical history Review of Systems Constitutional: Denies: Chills, Fever, Weight Change HEENT: Denies: Head Aches, Sinus Congestion, Sinus Drainage Cardiovascular: Denies: Chest Pain, Palpitations Respiratory: Reports: Cough, Shortness of breath at rest. Denies: Sputum production Gastrointestinal: Denies: Abdominal Pain, Nausea, Vomiting Genitourinary: Denies: Dysuria Musculoskeletal: Denies: Joint Pain, Joint Tenderness Skin: Denies: Rash, Wounds Neurological: Denies: Numbness, Tingling, Focal weakness Psychiatric: Reports: Anxiety, Depression. Denies: Homicidal Ideations, Suicidal Ideations Hematologic/ Lymphatic: Denies: Easy Bruising, Easy Bleeding VTE Information - Inpt Only VTE Present on Admission: No VTE Mechan Device Prophylaxis: None VTE Pharm Prophylaxis ordered?: Yes Patient Problems: Active and Suspected Problems Pneumonia (Acute) Sepsis (Acute) Community acquired pneumonia (Acute) Acute respiratory insufficiency (Acute) - Physical Exam General: Alert, Oriented x3, Cooperative HEENT: Atraumatic, PERRLA, EOMI, Normocephalic Neck: Supple, No JVD, Negative Carotid Bruits Lungs: Rhonchi, Short of Breath, Tachypneic, Using Accessory Muscles, Wheezes Cardiovascular: Regular rate, No murmurs Abdomen: Bowel Sounds Present, Soft, Non Tender Extremities: No edema, Capillary Refill Less than 3 Seconds Skin: No rashes, No breakdown Musculoskeletal: No Tenderness to Palpation of Joints or Extremities Neurological: Cranial nerves II-XII grossly intact - Hoarse voice Psych/Mental Status: Normal Affect, Appropriate Vital Signs Temp Pulse Resp BP Pulse Ox 98.7 F 88 22 H 152/63 H 83 06/04/19 02:07 06/04/19 02:33 06/04/19 02:33 06/04/19 02:07 06/04/19 02:07 Oxygen Delivery Method Room Air Weight: 123.5 kg Body Mass Index (BMI) 51.4 Laboratory Tests Past 24 Hrs 06/04/19 06/04/19 06/04/19 02:20 02:20 02:20 WBC 20.9 H RBC 3.71 L Hgb 11.5 L Hct 34.1 L MCV 91.9 MCH 31.0 MCHC 33.7 RDW Std Deviation 45.1 H RDW Coeff of Erica 13.2 Plt Count 352 MPV 9.6 Immature Gran % (Auto) 1.600 H Neut % (Auto) 78.3 H Lymph % (Auto) 9.2 L Keith % (Auto) 10.0 Eos % (Auto) 0.5 Baso % (Auto) 0.4 Absolute Neuts (auto) 16.4 H Absolute Lymphs (auto) 1.92 Nucleated RBC % 0.2 Differential Comment SCANNED Diff Path Review May foll Specimen Type Sample Site pH Bicarbonate Actual POC Total CO2 Base Excess O2 Saturation ABG pCO2 ABG pO2 Wayne Test O2 Delivery Device Liter Flow Blood Gas Notified Whom Blood Gas Notified Time Sodium 136 Potassium 3.8 Chloride 102 Carbon Dioxide 28.0 Anion Gap 6 BUN 18 Creatinine 0.88 Estim Creat Clear Calc 46.81 Est GFR (MDRD) Af Amer 82 Est GFR (MDRD) Non-Af 68 BUN/Creatinine Ratio 20.4 H Glucose 147 H Lactic Acid 1.5 Calcium 8.7 Troponin I < 0.015 B-Natriuretic Peptide 06/04/19 06/04/19 02:20 02:47 WBC RBC Hgb Hct MCV MCH MCHC RDW Std Deviation RDW Coeff of Erica Plt Count MPV Immature Gran % (Auto) Neut % (Auto) Lymph % (Auto) Keith % (Auto) Eos % (Auto) Baso % (Auto) Absolute Neuts (auto) Absolute Lymphs (auto) Nucleated RBC % Differential Comment Diff Path Review Specimen Type ART Sample Site L Radial pH 7.43 Bicarbonate Actual 28.4 H POC Total CO2 30 Base Excess 4 H O2 Saturation 90 L ABG pCO2 42.7 ABG pO2 56 L Wayne Test POS O2 Delivery Device Nasal Can Liter Flow 4.0 Blood Gas Notified Whom ED MD Blood Gas Notified Time 240 Sodium Potassium Chloride Carbon Dioxide Anion Gap BUN Creatinine Estim Creat Clear Calc Est GFR (MDRD) Af Amer Est GFR (MDRD) Non-Af BUN/Creatinine Ratio Glucose Lactic Acid Calcium Troponin I B-Natriuretic Peptide Pending Assessment/Plan All Active Problems Pneumonia (Acute) Sepsis (Acute) Community acquired pneumonia (Acute) Acute respiratory insufficiency (Acute) The patient is a 68 year old F with a significant history of thrombocytopenia; hypertension; hyperlipidemia; diabetes mellitus; depression and anxiety; 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 Sepsis second community acquired pneumonia Lactic acid: 1.5 Tachypnea with respiratory rate Oxygen saturation: 22-25 Blood culture ?2 is pending Chest x-ray:Scattered new pulmonary infiltrates within the right greater than left lung concern for underlying pneumonia. Chest x-ray was independently reviewed. I agree with radiologist interpretation. Cough is nonproductive to get specimen for culture. Antibiotics: Levaquin in the emergency department. Levaquin continued DuoNeb scheduled. Albuterol as needed Legionella antigen screen and Strep antigen ordered Because of wheeze and rhonchi prednisone x1 was given. Consider further needs of steroids. Respiratory pathogen panel ordered. Acute hypoxemic respiratory insufficiency On a patient of oxygen saturation of 83% and on 4 L oxygen saturation was 92% Treatment of pneumonia as above. Will check respiratory pathogen panel. Supplemental oxygen to maintain oxygen saturation more equal to 92%. Diabetes mellitus On presentation his blood glucose was within goal Home metformin held since it is too early in admission. Accu-Chek with correction scale insulin ordered. Hypertension On presentation her blood pressure was not within goal Amlodipine, lisinopril and metoprolol continued. Parameters placed Trend blood pressure and adjust blood pressure medication Hyperlipidemia Simvastatin continued History of thrombocytopenia Hydroxyruea continued Depression and anxiety Fluoxetine and hydroxyzine continued Osteoporosis On home alendronate DVT prophylaxis Subcutaneous Lovenox. Code Visit Inpatient E&M: 95391 Init Hosp L3
[2019-06-04] MEDS: levoFLOXacin IV 750 MG/150 ML BAG 100 MG IV (03:24)
[2019-06-04] MEDS: predniSONE 20 MG Tablet 40 MG PO (05:44)
[2019-06-04 07:05] LABS: Bedside Glucose 147 mg/dL (70-110)
[2019-06-04] MEDS: Hydroxyurea 500 MG Capsule PO (08:21)
--- NOTE | 2019-06-04 08:57 | CPS ---
Pt had an almost 2 minute coughing episode, could not catch her breath, R.T. increased O2 to 5lpm, explained to Navid LOMBARDO. will start PEP therapy next tx.
[2019-06-04] MEDS: amLODIPine 10 MG Tablet PO (09:58)
[2019-06-04] MEDS: Lisinopril 20 MG Tablet PO ×2 (09:58→22:07)
[2019-06-04] MEDS: FLUoxetine 20 MG Capsule 40 MG PO (09:58)
[2019-06-04] MEDS: Enoxaparin 40 MG/0.4 ML Syringe SC (09:58)
[2019-06-04] MEDS: Metoprolol Tartrate 100 MG Tablet PO ×2 (09:59→22:07)
--- NOTE | 2019-06-04 11:28 | PCM.PROGNOTE ---
Patient Problems: Active and Suspected Problems Pneumonia (Acute) Sepsis (Acute) Community acquired pneumonia (Acute) Acute respiratory insufficiency (Acute) Subjective: Day #1 Levaquin The patient is a 68-year-old female with a past medical history of thrombocytopenia, hypertension, hyperlipidemia, diabetes mellitus type 2, anxiety/depression, carcinoid tumor of the lung with resection and super obesity who presented to the ED at [facility] on 06/04/2019 complaining of shortness of breath and nonproductive cough. Vital signs at presentation to the emergency department were temperature 98.7, pulse rate 83, blood pressure 152/63, respiratory rate 25 and she was 83% saturated on room air. On a 4 L nasal cannula she was 92% saturated. White blood cell count was elevated at 20.9 with a left shift. Hemoglobin was 11.5 and platelets were within normal limits. MCV is 91.9. BMP was unremarkable. Lactic acid was normal at 1.5. Troponin was less than 0.015 and the BNP was 59. ABG done on a 4 L nasal cannula showed a pH of 7.43, PCO2 of 42 and a PO2 of 56. Chest x-ray showed scattered new pulmonary opacities right greater than left lung. EKG showed normal sinus rhythm with PACs and left axis. She was admitted to the hospital with acute respiratory failure with hypoxemia secondary to community-acquired pneumonia. She was started on Levaquin. She was given 1 dose of prednisone 40 mg. All events of the past 24 hours of been reviewed. T-max is 99.6 and current temp is 98.3. Hemodynamically stable. She is 93 to 94% saturated on a 3 L nasal cannula. Respiratory rate is in the low 20s. Oral intake is very poor All lab was personally reviewed. All cultures were reviewed. Streptococcal and Legionella antigens in the urine were negative. Respiratory panel is negative. She denies sore throat, nasal congestion, sinus pain. She tells me that she has had a cough since October 2018. She also tells me that she had pulmonary function tests and that she does not have chronic lung disease. She follows with Dr. Leung for hx of Carcinoid tumor of the lung. Denies sick contacts. - Physical Exam General: Alert, Oriented x3, Cooperative HEENT: Atraumatic, PERRLA, EOMI, Normocephalic, - - she has a hoarse voice Oral: No Gingival or Mucosal Lesions/ Ulcerations, Dry Mucosa Neck: Supple, No Nodes, Trachea Midline Lungs: No rhonchi, No wheeze, Rales - diffuse in both lungs, - - she has a dry, coarse cough Cardiovascular: Regular rate, Regular Rhythm, Normal S1, Normal S2, No Gallop Abdomen: Bowel Sounds Present, Soft, Non Tender, Non-Distended Extremities: No clubbing, No cyanosis, No edema Skin: No rashes, No breakdown Neurological: Cranial nerves II-XII grossly intact, Neuro grossly intact Psych/Mental Status: Normal Affect, Appropriate Vital Signs Temp Pulse Resp BP Pulse Ox 98.6 F 86 22 H 129/74 H 95 06/04/19 09:13 06/04/19 09:59 06/04/19 09:13 06/04/19 09:13 06/04/19 09:13 Oxygen Flow Rate (L/min) 5 Oxygen Delivery Method Nasal Cannula Weight: 272 lb 5 oz Body Mass Index (BMI) 50.5 Intake and Output for Last 24 Hours 06/02/19 06/03/19 06/04/19 23:59 23:59 23:59 Intake Total 275 / 275 Balance 275 / 275 Laboratory Tests Past 24 Hrs 06/04/19 06/04/19 06/04/19 02:20 02:20 02:20 WBC 20.9 H RBC 3.71 L Hgb 11.5 L Hct 34.1 L MCV 91.9 MCH 31.0 MCHC 33.7 RDW Std Deviation 45.1 H RDW Coeff of Erica 13.2 Plt Count 352 MPV 9.6 Immature Gran % (Auto) 1.600 H Neut % (Auto) 78.3 H Lymph % (Auto) 9.2 L [place] % (Auto) 10.0 Eos % (Auto) 0.5 Baso % (Auto) 0.4 Absolute Neuts (auto) 16.4 H Absolute Lymphs (auto) 1.92 Nucleated RBC % 0.2 Differential Comment SCANNED Diff Path Review May foll Specimen Type Sample Site pH Bicarbonate Actual POC Total CO2 Base Excess O2 Saturation ABG pCO2 ABG pO2 Wayne Test O2 Delivery Device Liter Flow Blood Gas Notified Whom Blood Gas Notified Time Sodium 136 Potassium 3.8 Chloride 102 Carbon Dioxide 28.0 Anion Gap 6 BUN 18 Creatinine 0.88 Estim Creat Clear Calc 46.81 Est GFR (MDRD) Af Amer 82 Est GFR (MDRD) Non-Af 68 BUN/Creatinine Ratio 20.4 H Glucose 147 H Lactic Acid 1.5 Calcium 8.7 Troponin I < 0.015 B-Natriuretic Peptide 06/04/19 06/04/19 02:20 02:47 WBC RBC Hgb Hct MCV MCH MCHC RDW Std Deviation RDW Coeff of Erica Plt Count MPV Immature Gran % (Auto) Neut % (Auto) Lymph % (Auto) [place] % (Auto) Eos % (Auto) Baso % (Auto) Absolute Neuts (auto) Absolute Lymphs (auto) Nucleated RBC % Differential Comment Diff Path Review Specimen Type ART Sample Site L Radial pH 7.43 Bicarbonate Actual 28.4 H POC Total CO2 30 Base Excess 4 H O2 Saturation 90 L ABG pCO2 42.7 ABG pO2 56 L Wayne Test POS O2 Delivery Device Nasal Can Liter Flow 4.0 Blood Gas Notified Whom ED MD Blood Gas Notified Time 240 Sodium Potassium Chloride Carbon Dioxide Anion Gap BUN Creatinine Estim Creat Clear Calc Est GFR (MDRD) Af Amer Est GFR (MDRD) Non-Af BUN/Creatinine Ratio Glucose Lactic Acid Calcium Troponin I B-Natriuretic Peptide 58.8 POC Glucose 06/04/19 05:47 POC Glucose 147 H Medical Necessity - Tobacco Use Smoking Status: Former smoker Assessment/Plan All Active Problems Pneumonia (Acute) Sepsis (Acute) Community acquired pneumonia (Acute) Acute respiratory insufficiency (Acute) Impressions 1. Sepsis secondary to community-acquired pneumonia. Continue Levaquin. Await the results of the blood cultures. No sputum has been obtained. Continue aerosol treatments. Obtain records from Dr. Valenzuela and Dr. Hall regarding recent radiology and pulmonary function tests. she has had a chronic cough since October.....with her hx of a carcinoid she could have a recurrence. 2. Acute respiratory failure with hypoxemia secondary to acute community-acquired pneumonia 3. Normochromic normocytic anemia of undetermined etiology. check a Hemoccult stool 4. History of carcinoid tumor of the lung with resection. Follows with Dr. Mason and has received no chemotherapy or radiation. 5. Thrombocytopenia/hypertension/hyperlipidemia/diabetes mellitus type 2/anxiety/depression/morbid obesity - chronic conditions. Continue OP medications. 6. Enoxaparin for DVT prophylaxis
[2019-06-04] MEDS: Insulin Lispro 100 UNIT/ML INSULN.PEN SC ×2 (12:02→16:34)
[2019-06-04 12:11] LABS: Bedside Glucose 200 mg/dL (70-110)
[2019-06-04 13:40] LABS: Pathologist Review Reviewed
--- NOTE | 2019-06-04 13:57 | CASEMGMT ---
RN CM Assessment Introduced role of RN CM to patient.? Patient is alert, oriented and able?to participate in RN CM Assessment. ?Care providers, pharmacy, and demographics verified. Presentation: SOB, Chronic Cough since October. H/o Carcinoid tumor of Lt lung that was surgically removed. Had PFT done- no asthma. H/o CHF Admit Dx: Sepsis s/t multifocal PNA Re-Admit: No Barriers/Issues: None PCP: Mauricio Valenzuela Specialists: Onc- Dr Melara, Ophth- Dr Prieto Preferred [facility]acy: [facility] Insurance: [employer] PPO, Med [place] Rx Benefit:?Yes ?LNOK: Jose Enrique Jiménez LW/HPOA: None, declines information/services on this admission. States her and Dtr know her wishes. Made aware if she changes her mind to notify staff and aware can come in as an Outpt as well. Living Arrangements:?Lives with her in a SS home, no steps to enter. ADL?s: Independent with ambulation, uses cane and walker occasionally. Independent with ADLs Transportation: Patient and drive, or Dtr to transport upon DC DME: CPAP, Glucometer. States used to have Home O2 after lung CA/surgery in 2017 but cannot recall what company it was through. HHC: None SNF: None Goal: Home and does not think will have any needs. Unsure of preferred company for DME and made aware a list would be provided if home O2 is needed. Denies any questions, concerns, or issues with DC planning at this time. Aware CM remains available for any emerging needs. DC PLAN: Home with possible Home O2. CHERYL Bustamante
[2019-06-04 16:50] LABS: Bedside Glucose 193 mg/dL (70-110)
[2019-06-04] MEDS: Lactated Ringers 1,000 ML 999 ML IV (18:30)
[2019-06-04 22:05] LABS: Bedside Glucose 103 mg/dL (70-110)
[2019-06-04] MEDS: Atorvastatin Calcium 10 MG Tablet PO (22:07)
[2019-06-05] VITALS (15 sets, daily range): BP systolic 117–144; BP diastolic 65–74; PULSE 59–85; RESP 16–24; TEMP 36.6–36.8; O2SAT 91–94
[2019-06-05] MEDS: Ipratropium/Albuterol Sulfate 3 ML AMPUL.NEB INHALATION ×4 (00:21→19:26)
[2019-06-05 06:02] LABS: Absolute Lymphocyte Count 2.43 X10^3/uL (0.83-4.51); Absolute Neutrophil Count 16.1 X10^3/uL (2.0-7.7); Basophil# 0.07 X10^3/uL; Basophil% 0.3 % (0-1); Eosinophil# 0.11 X10^3/uL; Eosinophils% 0.5 % (0-5); Hematocrit 33.1 % (37-47); Hemoglobin 10.6 g/dL (12.0-15.0); Lymphocyte # 2.43 X10^3/ul (4.0); Lymphocyte % 11.6 % (19-41); Mean Corpuscular Hgb 29.8 pg (27.0-32.0); Mean Platelet Vol. 9.5 fl (6.2-12.0); Monocyte% 8.6 % (0-10); NRBC Flagged by Analyzer 0 % (0-5); Neutrophil # 16.06 X10^3/uL (2.7-7.7); POSITIVE DIFFERENTIAL YES; Platelet Count 371 K/mm3 (150-450); RBC Distribution Width CV 13.8 % (11.6-14.6); RBC Distribution Width SD 46.7 fl (35.1-43.9); Red Blood Count 3.56 M/mm3 (4.2-5.4); White Blood Count 20.9 K/mm3 (4.4-11.0)
[2019-06-05 06:07] LABS: Erythrocyte Sedimentation Rate 127 mm/hr (0-30)
[2019-06-05 06:09] LABS: Differential Indicated SCAN CRITERIA MET
[2019-06-05 06:27] LABS: ALB/GLOB Ratio 0.4 RATIO (0.9-2.4); AST(SGOT) 25 U/L (15-37); Alanine Aminotransfer ALT/SGPT 22 U/L (13-56); Albumin, Serum 1.8 g/dL (3.2-5.0); Alkaline Phosphatase 103 U/L (45-117); Anion Gap 8 (5-15); BUN 19 mg/dL (7-18); BUN/Creat Ratio 25.4 RATIO (10-20); Chloride 107 mmol/L (98-107); Creatinine, Serum 0.75 mg/dL (0.55-1.02); EST Glomerular Filtration Rate 82 mL/min (>60); Est Glom Filt Rate - Afr Amer 99 mL/min (>60); Estimated Creatinine Clearance 41.19 ml/min; Globulin 4.9 g/dL (2.2-4.2); Glucose 115 mg/dL (74-106); Magnesium 2.1 mg/dL (1.6-2.6); Phosphorus 2.9 mg/dL (2.5-4.9); Potassium 3.5 mmol/L (3.5-5.1); Protein, Total 6.7 g/dL (6.4-8.2); Sodium Level 142 mmol/L (136-145)
[2019-06-05 07:10] LABS: Bedside Glucose 119 mg/dL (70-110)
[2019-06-05] MEDS: Metoprolol Tartrate 100 MG Tablet PO ×2 (09:49→22:08)
[2019-06-05] MEDS: Enoxaparin 40 MG/0.4 ML Syringe SC (09:50)
[2019-06-05] MEDS: FLUoxetine 20 MG Capsule 40 MG PO (09:50)
[2019-06-05] MEDS: Lisinopril 20 MG Tablet PO ×2 (09:50→22:08)
[2019-06-05] MEDS: amLODIPine 10 MG Tablet PO (09:50)
[2019-06-05 12:15] LABS: Bedside Glucose 127 mg/dL (70-110)
--- NOTE | 2019-06-05 14:33 | PN_ITS ---
Patient Problems: Active and Suspected Problems Pneumonia (Acute) Sepsis (Acute) Community acquired pneumonia (Acute) Acute respiratory insufficiency (Acute) Subjective: Afebrile Hemodynamically stable 93% on a 5 L nasal cannula today Legionella, streptococcal antigens in the urine were negative. Respiratory panel was negative. Cultures have no growth to date. She was unable to produce a sputum. Tells me that she is feeling somewhat better today. She was able to ambulate in the wills today and the dyspnea on exertion has improved. She is now able to cough up some clear secretions. Denies chest pain. Oral intake is improving. - Physical Exam General: Alert, Oriented x3, Cooperative, - - Less tachypneic today. Appears in less distress. Oral: Moist Mucosa Neck: Supple, No Nodes, Trachea Midline Lungs: Rales - Bibasilar, Wheezes - Some scattered expiratory wheezing posteriorly. Better air exchange today. No conversational dyspnea. No accessory muscle use. Cardiovascular: Regular rate, Regular Rhythm, Normal S1, Normal S2, No Gallop Abdomen: Bowel Sounds Present, Soft, Non Tender, Non-Distended Extremities: No edema Skin: No rashes Neurological: Cranial nerves II-XII grossly intact, Neuro grossly intact Psych/Mental Status: Normal Affect, Appropriate Vital Signs Temp Pulse Resp BP Pulse Ox 98.3 F 74 16 134/67 H 93 06/05/19 09:46 06/05/19 13:06 06/05/19 13:06 06/05/19 09:46 06/05/19 09:46 Oxygen Flow Rate (L/min) 4 Oxygen Delivery Method Nasal Cannula Weight: 272 lb 5 oz Body Mass Index (BMI) 50.5 Intake and Output for Last 24 Hours 06/03/19 06/04/19 06/05/19 23:59 23:59 23:59 Intake Total 1529.17 / 1979.17 2950.00 / 2950.00 Output Total 150 / 650 1025 / 1025 Balance 1379.17 / 1329.17 1925.00 / 1925.00 Microbiology Past 72 Hours 06/04/19 13:05 Streptococcus pneumoniae Antigen (M - Final Urine Catheter - [place] 06/04/19 13:05 Legionella Antigen - Final Urine Catheter - [place] 06/04/19 07:10 Respiratory Panel (PCR) - Final Mucosa - Nose Laboratory Tests Past 24 Hrs 06/05/19 06/05/19 05:26 05:26 WBC 20.9 H RBC 3.56 L Hgb 10.6 L Hct 33.1 L MCV 93.0 MCH 29.8 MCHC 32.0 RDW Std Deviation 46.7 H RDW Coeff of Erica 13.8 Plt Count 371 MPV 9.5 Immature Gran % (Auto) 2.000 H Neut % (Auto) 77.0 H Lymph % (Auto) 11.6 L [place] % (Auto) 8.6 Eos % (Auto) 0.5 Baso % (Auto) 0.3 Absolute Neuts (auto) 16.1 H Absolute Lymphs (auto) 2.43 Nucleated RBC % 0 ESR 127 H Sodium 142 Potassium 3.5 Chloride 107 Carbon Dioxide 27.0 Anion Gap 8 BUN 19 H Creatinine 0.75 Estim Creat Clear Calc 41.19 Est GFR (MDRD) Af Amer 99 Est GFR (MDRD) Non-Af 82 BUN/Creatinine Ratio 25.4 H Glucose 115 H Calcium 8.0 L Phosphorus 2.9 Magnesium 2.1 Total Bilirubin 0.40 AST 25 ALT 22 Alkaline Phosphatase 103 C-React Prot Ext Range 213.00 H Total Protein 6.7 Albumin 1.8 L Globulin 4.9 H Albumin/Globulin Ratio 0.4 L POC Glucose 06/05/19 06/05/19 06/04/19 12:02 06:41 21:58 POC Glucose 127 H 119 H 103 06/04/19 16:33 POC Glucose 193 H Medical Necessity - Tobacco Use Smoking Status: Former smoker Assessment/Plan All Active Problems Pneumonia (Acute) Sepsis (Acute) Community acquired pneumonia (Acute) Acute respiratory insufficiency (Acute) Impressions 1. Sepsis secondary to community-acquired pneumonia. Continue Levaquin. Await the results of the blood cultures. Give pt a sputum cup to collect a specimen. Continue aerosol treatments. Obtain records from Dr. Valenzuela and Dr. Hall regarding recent radiology and pulmonary function tests. she has had a chronic cough since October.....with her hx of a carcinoid she could have a recurrence. Legionella and streptococcal antigens in the urine were negative. Respiratory panel was negative. 2. Acute respiratory failure with hypoxemia secondary to acute community- acquired pneumonia 3. Normochromic normocytic anemia of undetermined etiology. Hemoccult stool ordered 4. History of carcinoid tumor of the lung with resection. Follows with Dr. Melara and has received no chemotherapy or radiation. 5. Thrombocytopenia/hypertension/hyperlipidemia/diabetes mellitus type 2/anxiety/depression/morbid obesity - chronic conditions. Continue OP medications. 6. Enoxaparin for DVT prophylaxis Continue current treatment Decrease IV fluid to 100 cc/h Obtain sputum sample today. Ambulatory pulse ox prior to discharge to determine oxygen requirements Code Visit Inpatient E&M: 97964 Subs Hosp L2
[2019-06-05 14:41] LABS: Pathologist Review Reviewed
[2019-06-05 17:11] LABS: Bedside Glucose 101 mg/dL (70-110)
[2019-06-05 22:01] LABS: Bedside Glucose 138 mg/dL (70-110)
[2019-06-05] MEDS: levoFLOXacin IV 750 MG/150 ML BAG 100 MG IV (22:07)
[2019-06-05] MEDS: Atorvastatin Calcium 10 MG Tablet PO (22:09)
[2019-06-06] VITALS (34 sets, daily range): BP systolic 123–155; BP diastolic 56–77; PULSE 53–93; RESP 12–34; TEMP 36.2–36.8; O2SAT 86–97
[2019-06-06] MEDS: Ipratropium/Albuterol Sulfate 3 ML AMPUL.NEB INHALATION ×4 (00:28→18:34)
--- NOTE | 2019-06-06 01:14 | RAD_ITS ---
STUDY: X-RAY CHEST REASON FOR EXAM: Female, 68 years old. Short of breath and cough. TECHNIQUE: AP portable upright chest radiograph. COMPARISON: 06/04/2019 chest radiograph. FINDINGS: Multifocal pulmonary opacities, worse on the right, are similar to previous. No apparent pneumothorax or pleural effusion. Heart size remains normal. No acute osseous abnormality. RAD/Chest 1 View (Portable) IMPRESSION: Multifocal pulmonary opacities, worse on the right, are similar to previous. This could represent pneumonia or edema. Electronically Signed: Bari Hancock, at 1:42 EDT Tel , Service support ,
[2019-06-06] MEDS: Furosemide 40 MG/4 ML Vial IV (01:34)
[2019-06-06] MEDS: 0.9% NaCl Peripheral Flush Adult/Peds IV ×2 (01:35→14:38)
[2019-06-06] MEDS: Albuterol 2.5 MG/3 ML VIAL.NEB. INHALATION (03:23)
[2019-06-06 07:15] LABS: Bedside Glucose 109 mg/dL (70-110)
--- NOTE | 2019-06-06 07:16 | RAD_ITS ---
STUDY: X-RAY CHEST REASON FOR EXAM: Female, 68 years old. Acute respiratory failure. TECHNIQUE: PA and lateral views of the chest. COMPARISON: Comparison is made with prior examination dated June 06, 2019. FINDINGS: EKG electrodes are seen. Slight improved aeration of the infiltration in the right apex and right lower lobe. Stable left lower lobe infiltrate. There is no demonstrated pleural abnormality. There is borderline cardiomegaly. Normal mediastinum and colt. Normal visualized pulmonary arteries. There is atherosclerotic tortuosity of the aortic arch and descending thoracic aorta. There are diffuse degenerative changes of the visualized thoracic spine. Normal visualized ribs, clavicles, and shoulders. There is no demonstrated abnormality of the visualized soft tissue structures of the upper abdomen. RAD/Chest PA and Lateral IMPRESSION: There has been improvement in the right apical and right lower lobe infiltrates. Stable left lower lobe infiltrate. Electronically Signed: Joshua Barksdale, at 10:47 EDT , Service support ,
--- NOTE | 2019-06-06 08:03 | NURSING ---
pt off unit for scan
--- NOTE | 2019-06-06 10:15 | NURSING ---
Pt was off unit this AM for chest xray and upon return eating breakfast. Noticed with assmt that o2 remains on 6L as increased during night, that spo2 is 86-89%. RT notified and states that breathing tx do not seem to be helping pt and that more lasix may need to be ordered d/t crackles. Text sent to Dr. Antonio-
[2019-06-06] MEDS: FLUoxetine 20 MG Capsule 40 MG PO (11:18)
[2019-06-06] MEDS: Hydroxyurea 500 MG Capsule PO (11:19)
[2019-06-06] MEDS: Enoxaparin 40 MG/0.4 ML Syringe SC (11:19)
[2019-06-06] MEDS: Insulin Lispro 100 UNIT/ML INSULN.PEN SC (11:24)
[2019-06-06 12:10] LABS: Bedside Glucose 207 mg/dL (70-110)
[2019-06-06 13:14] LABS: Hematocrit 34.6 % (37-47); Hemoglobin 11.3 g/dL (12.0-15.0); Mean Corp Hgb Conc 32.7 g/dL (32-36); Mean Corpuscular Volume 91.8 fL (81-99); Mean Platelet Vol. 9.3 fl (6.2-12.0); Platelet Count 394 K/mm3 (150-450); RBC Distribution Width CV 13.6 % (11.6-14.6); RBC Distribution Width SD 45.8 fl (35.1-43.9); Red Blood Count 3.77 M/mm3 (4.2-5.4); White Blood Count 16.9 K/mm3 (4.4-11.0)
[2019-06-06 13:25] LABS: Anion Gap 6 (5-15); BUN 15 mg/dL (7-18); BUN/Creat Ratio 20.7 RATIO (10-20); Calcium,Total 8.5 mg/dL (8.5-10.1); Chloride 100 mmol/L (98-107); Creatinine, Serum 0.72 mg/dL (0.55-1.02); EST Glomerular Filtration Rate 85 mL/min (>60); Est Glom Filt Rate - Afr Amer 103 mL/min (>60); Estimated Creatinine Clearance 41.19 ml/min; Glucose 102 mg/dL (74-106); Potassium 3.2 mmol/L (3.5-5.1); Sodium Level 137 mmol/L (136-145)
--- NOTE | 2019-06-06 13:30 | CASEMGMT ---
GRUPO CALVERT NOTE: Anticipate pt will need oxygen @ discharge. Pt states she has had home oxygen in the past but does not remember what DME company she got it from. Pt provided list of local DME companies. Pt states she will look over to decide what company she wishes to get oxygen from if she qualifies for Home O2 @discharge. Moiz DODD RN, CM
[2019-06-06 13:46] LABS: BNP,B-Type NATRIURETIC PEPTIDE 78.9 pg/mL (0-100)
--- NOTE | 2019-06-06 13:59 | PCM.CONS.PUL ---
Reason for Consult Date of Consultation: 06/06/19 Reason for Consultation: Respiratory failure History of Present Illness: The patient is a 68-year-old female, with a history as outlined below, who presented to the emergency department on June 04 with complaints of shortness of breath. 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 However, the patient has reportedly been noncompliant with its use. On presentation to the emergency department, the patient was noted to be afebrile and hemodynamically stable. She was initially documented to be saturating 83% on room air. Laboratory evaluation revealed an elevated white blood cell count to 21,000. Arterial blood gas obtained on 4 L/min revealed a pH of 7.43 with a corresponding PCO2 of 43 and PO2 of 56. Chemistry profile was largely unremarkable. Lactate was within normal limits. Troponin was negative. BNP was only noted to be 59. Initial plain film chest x-ray revealed evidence of multifocal infiltrates bilaterally, right greater than left. The patient was subsequently admitted to the medical surgical floor, where she has been maintained on bronchodilators and Levaquin. Despite the above, the patient's respiratory status has continued to decline. Her oxygen requirement has increased. The patient is currently on BiPAP therapy. Her cough initially was nonproductive but over the course of the last 24 hours she has been able to expectorate some sputum. Cultures are currently pending. Past Medical History Past Medical History (Chronic Problems): Chronic Problems Hypertension (Chronic) History of lung cancer (Chronic) Status post left lower lobe pneumectomy. History of stroke (Chronic) Chronic thrombocytopenia (Chronic) Hyperlipidemia (Chronic) Anxiety (Chronic) Depression (Chronic) Type 2 diabetes mellitus (Chronic) Allergies No Known Allergies Allergy (Verified 02/22/18 14:27) Home Medications: Ambulatory Orders Medication Instructions Recorded Alendronate Sodium 70 mg PO NICKERSON 02/22/18 Amlodipine [Norvasc] 10 mg PO DAILY 02/22/18 Aspirin 81 mg PO DAILY 02/22/18 Fluoxetine HCl 40 mg PO DAILY 02/22/18 Hydroxyurea [Hydrea] 500 mg PO QODAY 02/22/18 Hydroxyzine HCl 25 mg PO QHS 02/22/18 Metformin HCl [Metformin HCl ER] 500 mg PO BID 02/22/18 Metoprolol Tartrate [Lopressor 100 mg PO DAILY 02/22/18 (beta padmaja)] Simvastatin 20 mg PO QHS 02/22/18 Lisinopril [Zestril] 20 mg PO DAILY 06/04/19 Surgical History: tonsillectomy, - - Surgery for carcinoid tumor; section; knee surgery; several oil deposits removed from scalp. Psychiatric History: Anxiety, Depression RESIDENCY DIRECTOR History: No pertinent RESIDENCY DIRECTOR history Lives: Spouse/ Significant Other Smoking Status: Former smoker Alcohol: None - *Family History Maternal History Items: Diabetes, Hypertension Paternal History Items: - - He does not know her paternal medical history Review of Systems Constitutional: Denies: Chills, Fever Eyes: Denies: Blurred vision, Double vision HEENT: Denies: Head Aches, Sinus Congestion, Sinus Drainage Cardiovascular: Reports: Edema Respiratory: Reports: Cough, Shortness of Breath Gastrointestinal: Denies: Abdominal Pain, Nausea, Vomiting Genitourinary: Denies: Dysuria Musculoskeletal: Denies: Joint Pain, Joint Tenderness Skin: Denies: Rash, Wounds Neurological: Denies: Numbness, Tingling, Focal weakness Psychiatric: Denies: Anxiety, Depression, Homicidal Ideations, Suicidal Ideations Hematologic/ Lymphatic: Reports: Anemia Patient Problems: Active and Suspected Problems Pneumonia (Acute) Sepsis (Acute) Community acquired pneumonia (Acute) Acute respiratory insufficiency (Acute) Objective: The patient's most recent lab work, culture data and imaging studies have all been personally reviewed. Blood cultures have shown no growth to date. Strep and urine Legionella antigens along with respiratory viral panel were negative. Sputum culture is currently pending. - Physical Exam General: Alert, Cooperative, - - Sitting in bedside recliner. BiPAP in place. HEENT: Atraumatic, PERRLA, Normocephalic Oral: No Gingival or Mucosal Lesions/ Ulcerations Neck: Supple, No Nodes, Trachea Midline Lungs: Rales, Short of Breath, Tachypneic Cardiovascular: Regular rate, Regular Rhythm, Normal S1, Normal S2, No murmurs Abdomen: Bowel Sounds Present, Soft, Non Tender, Obese Extremities: No clubbing, No cyanosis, Edema Skin: No breakdown Musculoskeletal: No Tenderness to Palpation of Joints or Extremities, No Muscle Wasting Lymphatic: No Cervical, Supraclavicular, or Inguinal Adenopathy Neurological: Cranial nerves II-XII grossly intact, Neuro grossly intact Psych/Mental Status: Normal Affect, Appropriate Vital Signs Temp Pulse Resp BP Pulse Ox 97.6 F L 65 20 H 129/61 H 97 06/06/19 12:15 06/06/19 13:33 06/06/19 13:33 06/06/19 12:15 06/06/19 13:33 Oxygen Flow Rate (L/min) 6 Oxygen Delivery Method Nasal Cannula Weight: 285 lb 11.505 oz Body Mass Index (BMI) 50.5 Intake and Output for Last 24 Hours 06/04/19 06/05/19 06/06/19 23:59 23:59 23:59 Intake Total 1529.17 / 1979.17 4542.49 / 4842.49 1106.67 / 1106.67 Output Total 150 / 650 1325 / 1425 1999 / 1999 Balance 1379.17 / 1329.17 3217.49 / 3417.49 -893.33 / -893.33 Microbiology Past 72 Hours 06/04/19 02:28 Blood Culture - Preliminary Blood Culture (Wb) - Right Hand No growth in 48 hours. 06/04/19 03:15 Blood Culture - Preliminary Blood Culture (Wb) - Right Forearm No growth in 48 hours. 06/04/19 13:05 Streptococcus pneumoniae Antigen (M - Final Urine Catheter - Corona 06/04/19 13:05 Legionella Antigen - Final Urine Catheter - Corona 06/04/19 07:10 Respiratory Panel (PCR) - Final Mucosa - Nose Laboratory Tests Past 24 Hrs 06/05/19 06/06/19 06/06/19 05:26 13:00 13:00 WBC 16.9 H RBC 3.77 L Hgb 11.3 L Hct 34.6 L MCV 91.8 MCH 30.0 MCHC 32.7 RDW Std Deviation 45.8 H RDW Coeff of Erica 13.6 Plt Count 394 MPV 9.3 Diff Path Review Reviewed Sodium 137 Potassium 3.2 L Chloride 100 Carbon Dioxide 31.0 Anion Gap 6 BUN 15 Creatinine 0.72 Estim Creat Clear Calc 41.19 Est GFR (MDRD) Af Amer 103 Est GFR (MDRD) Non-Af 85 BUN/Creatinine Ratio 20.7 H Glucose 102 Calcium 8.5 B-Natriuretic Peptide 06/06/19 13:00 WBC RBC Hgb Hct MCV MCH MCHC RDW Std Deviation RDW Coeff of Erica Plt Count MPV Diff Path Review Sodium Potassium Chloride Carbon Dioxide Anion Gap BUN Creatinine Estim Creat Clear Calc Est GFR (MDRD) Af Amer Est GFR (MDRD) Non-Af BUN/Creatinine Ratio Glucose Calcium B-Natriuretic Peptide 78.9 POC Glucose 06/06/19 06/06/19 06/05/19 11:23 06:44 21:58 POC Glucose 207 H 109 138 H 06/05/19 16:48 POC Glucose 101 Clinical Impression(s) from Imaging Studies Chest X-Ray 06/04/19 02:40 IMPRESSION: Scattered new pulmonary opacities within the right greater than left lung concerning for underlying pneumonia. Follow-up to resolution recommended. Electronically Signed: Mauricio Christopher, at 3:00 EDT Tel , Service support , Chest X-Ray 06/06/19 01:14 IMPRESSION: Multifocal pulmonary opacities, worse on the right, are similar to previous. This could represent pneumonia or edema. Electronically Signed: Bari Hancock, at 1:42 EDT Tel , Service support , Chest X-Ray 06/06/19 07:16 IMPRESSION: There has been improvement in the right apical and right lower lobe infiltrates. Stable left lower lobe infiltrate. Electronically Signed: Joshua Barksdale, at 10:47 EDT , Service support , Assessment/Plan All Active Problems Pneumonia (Acute) Sepsis (Acute) Community acquired pneumonia (Acute) Acute respiratory insufficiency (Acute) RECOMMENDATIONS: 1. Recommend the initiation of BiPAP therapy at the very minimum with naps and nightly. 2. Broaden antibiotics to include vancomycin and Zosyn for now. 3. Check MRSA screen. 4. Await sputum culture results. 5. Transition to ICU level of care, given tenuous respiratory status. IMPRESSIONS: 1. Acute hypoxemic respiratory failure The patient has radiographic evidence of multifocal pneumonia in the setting of a new oxygen requirement. Given that she has not made any significant improvement over the last several days, I would recommend broadening her antibiotics to include vancomycin and Zosyn. We will plan to check an MRSA screen. The patient has been transition to BiPAP therapy. Given her tenuous respiratory status, I would recommend that she be transition to ICU level of care. Await final culture results. Wean supplemental oxygen to maintain saturations at or above 90%. 2. 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 Continue outpatient Hydrea. 3. Obstructive sleep apnea The patient has a known history of obstructive sleep apnea but has only been intermittently compliant with the use of nocturnal Pap therapy. She did complete a re-titration study in 2018, for which it was recommended that she be on bilevel therapy. However, it does not appear that the patient ever had her orders updated, as she is currently still utilizing a CPAP machine. For now, the patient will be continued on BiPAP therapy while admitted to the hospital. Orders for a transition to BiPAP will be placed upon discharge with plans for outpatient follow-up. 4. Anemia/hypertension/hyperlipidemia/diabetes mellitus/anxiety/depression Complicates care, management, recovery and prognosis. Okay to continue home medications as indicated. This note was generated with [employer] dictation software. It may contain incorrect words, spelling, and punctuation that were not noted in checking the note before signing. Code Visit Inpatient E&M: 79012 Init Hosp L3
--- NOTE | 2019-06-06 14:26 | PCM.PROGNOTE ---
Patient Problems: Active and Suspected Problems Pneumonia (Acute) Sepsis (Acute) Community acquired pneumonia (Acute) Acute respiratory insufficiency (Acute) Subjective: Day #3 Levaquin All events of the past 24 hours been reviewed. She has been afebrile since admission. She is hemodynamically stable. O2 requirement increased to 6 L nasal cannula last night and the chest x-ray was obtained. The radiologist report was pneumonia versus pulmonary edema. He was given 1 dose of Lasix 40 mg which did not significantly change her breathing. A PA and lateral chest x-ray was done today clearly shows pneumonia and not pulmonary edema. BNP was 58 at admission and today is 78. Legionella and streptococcal antigens in the urine were negative. Respiratory panel was negative. Patient was finally able to produce a sputum today and the Gram stain and culture are pending however she has had 3 days of IV Levaquin and there may be no growth. She is getting fatigued and is having some shallow breathing with an increased respiratory rate. She looks very tired. She has been sitting up in a chair with her legs dependent. She denies any nausea/vomiting/abdominal pain. She has no chest pain. She continues to have a cough with coughing paroxysms at the times that leave her short of breath. WBC count is improved and is now down to 16.9. Hemoglobin is stable at 11.3. Platelets are within normal limits. BUN is 15 the creatinine is 0.72. - Physical Exam General: Alert, Cooperative, - - Looks very fatigued and sleepy HEENT: PERRLA, EOMI Oral: Dry Mucosa Neck: Supple, No Nodes, Trachea Midline Lungs: Rales - in both bases No wheezing. she is tachypneic but has no accessory muscle use Cardiovascular: Regular rate, Regular Rhythm, Normal S1, Normal S2, No murmurs, No Gallop Abdomen: Bowel Sounds Present, Soft, Non Tender, Non-Distended, Obese Extremities: No cyanosis, Edema - 1+ pretibial edema - has her legs dependent and has been sitting in a chair for long periods of time Skin: No rashes Neurological: Cranial nerves II-XII grossly intact, Neuro grossly intact Psych/Mental Status: Appropriate Vital Signs Temp Pulse Resp BP Pulse Ox 97.6 F L 65 20 H 129/61 H 97 06/06/19 12:15 06/06/19 13:33 06/06/19 13:33 06/06/19 12:15 06/06/19 13:33 Oxygen Flow Rate (L/min) 6 Oxygen Delivery Method Nasal Cannula Weight: 285 lb 11.505 oz Body Mass Index (BMI) 50.5 Intake and Output for Last 24 Hours 06/04/19 06/05/19 06/06/19 23:59 23:59 23:59 Intake Total 1529.17 / 1979.17 4542.49 / 4842.49 1106.67 / 1106.67 Output Total 150 / 650 1325 / 1425 1999 Balance 1379.17 / 1329.17 3217.49 / 3417.49 -893.33 / -893.33 Microbiology Past 72 Hours 06/04/19 02:28 Blood Culture - Preliminary Blood Culture (Wb) - Right Hand No growth in 48 hours. 06/04/19 03:15 Blood Culture - Preliminary Blood Culture (Wb) - Right Forearm No growth in 48 hours. 06/04/19 13:05 Streptococcus pneumoniae Antigen (M - Final Urine Catheter - Corona 06/04/19 13:05 Legionella Antigen - Final Urine Catheter - Corona 06/04/19 07:10 Respiratory Panel (PCR) - Final Mucosa - Nose Laboratory Tests Past 24 Hrs 06/05/19 06/06/19 06/06/19 05:26 13:00 13:00 WBC 16.9 H RBC 3.77 L Hgb 11.3 L Hct 34.6 L MCV 91.8 MCH 30.0 MCHC 32.7 RDW Std Deviation 45.8 H RDW Coeff of Erica 13.6 Plt Count 394 MPV 9.3 Diff Path Review Reviewed Sodium 137 Potassium 3.2 L Chloride 100 Carbon Dioxide 31.0 Anion Gap 6 BUN 15 Creatinine 0.72 Estim Creat Clear Calc 41.19 Est GFR (MDRD) Af Amer 103 Est GFR (MDRD) Non-Af 85 BUN/Creatinine Ratio 20.7 H Glucose 102 Calcium 8.5 B-Natriuretic Peptide 06/06/19 13:00 WBC RBC Hgb Hct MCV MCH MCHC RDW Std Deviation RDW Coeff of Erica Plt Count MPV Diff Path Review Sodium Potassium Chloride Carbon Dioxide Anion Gap BUN Creatinine Estim Creat Clear Calc Est GFR (MDRD) Af Amer Est GFR (MDRD) Non-Af BUN/Creatinine Ratio Glucose Calcium B-Natriuretic Peptide 78.9 POC Glucose 06/06/19 06/06/19 06/05/19 11:23 06:44 21:58 POC Glucose 207 H 109 138 H 06/05/19 16:48 POC Glucose 101 Medical Necessity - Tobacco Use Smoking Status: Former smoker Assessment/Plan All Active Problems Pneumonia (Acute) Sepsis (Acute) Community acquired pneumonia (Acute) Acute respiratory insufficiency (Acute) Impressions 1. Sepsis secondary to community-acquired pneumonia. Cryptococcal and Legionella antibodies in the urine are negative. Respiratory panel is negative. Blood cultures have no growth after 48 hours. Sputum Gram stain shows 3+ white blood cells with rare gram-positive cocci. Culture is pending. she is fatiguing and the O2 requirement has increased. CXR shows persistent consolidation in the R upper lung, R base and in the left base. There is no pleural effusion and no pulmonary vascular congestion. Placed on BIPAP and transferred to the ICU on 06/[address] Zheng consulted to participate in management. Antibiotics coverage broadened to Zosyn and Vanco. MRSA nasal screen is negative. 2. Acute respiratory failure with hypoxemia secondary to acute community-acquired pneumonia 3. Normochromic normocytic anemia of undetermined etiology. Hemoccult stool ordered 4. 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 Follows with Dr. Melara and has received no chemotherapy or radiation. 5. Thrombocytopenia/hypertension/hyperlipidemia/diabetes mellitus type 2/anxiety/depression/morbid obesity - chronic conditions. Continue OP medications. 6. JAJA - prescribed BIPAP at home with settings - not always complaint 7. Enoxaparin for DVT prophylaxis BiPAP now - settings on the sleep study in apr were 22/18. Consult Dr. Zheng to participate in management Transfer to ICU for closer observation Discontinue Levaquin and start Zosyn and Vancomycin MRSA nasal swab start Famotidine for GI prophylaxis Code Visit Inpatient E&M: 84189 [facility] Hosp L3
[2019-06-06] MEDS: amLODIPine 10 MG Tablet PO (14:31)
[2019-06-06] MEDS: Lisinopril 20 MG Tablet PO ×2 (14:31→21:17)
[2019-06-06] MEDS: Metoprolol Tartrate 100 MG Tablet PO (14:32)
[2019-06-06] MEDS: 0.9% NaCl IVPB Med Flush (250 mL) 15 ML IV (14:37)
[2019-06-06 17:00] LABS: M R Staph aureus DNA By PCR Negative (Negative); Probe Check PASS; Specimen Processing Control PASS
--- NOTE | 2019-06-06 17:00 | NURSING ---
Pt transported to ICU at 1547 per physician order.
--- NOTE | 2019-06-06 17:56 | PCM.RX.CS ---
Consult Pharmacy has been consulted to manage selected antiobiotic: Vancomycin Type of Consult: New start Suspected Infection: Pneumonia Prior Doses of Antibiotics Received/Current Regimen: VANCOMYCIN 2000MG IV X1 06/06/19 @1527 Labs: Sodium 137 mmol/L (136-145) 06/06/19 13:00 Potassium 3.2 mmol/L (3.5-5.1) L 06/06/19 13:00 Chloride 100 mmol/L (98-107) 06/06/19 13:00 Carbon Dioxide 31.0 mmol/L (21.0-32.0) 06/06/19 13:00 Anion Gap 6 (5-15) 06/06/19 13:00 BUN 15 mg/dL (7-18) 06/06/19 13:00 Creatinine 0.72 mg/dL (0.55-1.02) 06/06/19 13:00 Est GFR (MDRD) Af Amer 103 mL/min (>60) 06/06/19 13:00 Est GFR (MDRD) Non-Af 85 mL/min (>60) 06/06/19 13:00 BUN/Creatinine Ratio 20.7 RATIO (10-20) H 06/06/19 13:00 Glucose 102 mg/dL (74-106) 06/06/19 13:00 Microbiology: Microbiology 06/06/19 07:45 Sputum, Expectorated/Coughed Gram Stain - Final 06/04/19 02:28 Blood Culture (Wb) - Right Hand Blood Culture - Preliminary No growth in 48 hours. 06/04/19 03:15 Blood Culture (Wb) - Right Forearm Blood Culture - Preliminary No growth in 48 hours. 06/04/19 13:05 Urine Catheter - Corona Streptococcus pneumoniae Antigen (M - Final 06/04/19 13:05 Urine Catheter - Corona Legionella Antigen - Final 06/04/19 07:10 Mucosa - Nose Respiratory Panel (PCR) - Final Weight used for dosin.6 kg Estimated Creatinine Clearance: 87 ML/MIN Goal Trough: 15-20 mcg/mL Pharmacy Plan for Drug Dosing: PLAN/RECOMMENDATION 1. Vancomycin 2000mg IV Q12hrs to start 06/07/19 @0300 2. Trough prior to 4th total dose 06/08/19 @0230 3. Pharmacy Service will continue to monitor and adjust dosing as required.
[2019-06-06] MEDS: Potassium Chloride 10mEq/100mL 10 MEQ/100 ML IV.SOLN. 100 MEQ IV BOLUS ×2 (17:57→19:01)
[2019-06-06 19:56] LABS: Bedside Glucose 109 mg/dL (70-110)
[2019-06-06] MEDS: Atorvastatin Calcium 10 MG Tablet PO (21:17)
[2019-06-06] MEDS: Famotidine 20 MG Tablet PO (21:17)
[2019-06-06 21:25] LABS: Bedside Glucose 109 mg/dL (70-110)
[2019-06-07] VITALS (36 sets, daily range): BP systolic 107–163; BP diastolic 49–99; PULSE 50–80; RESP 12–36; TEMP 36.3–36.7; O2SAT 90–98
[2019-06-07] MEDS: Ipratropium/Albuterol Sulfate 3 ML AMPUL.NEB INHALATION ×4 (00:11→18:40)
[2019-06-07 03:52] LABS: Absolute Lymphocyte Count 2.06 X10^3/uL (0.83-4.51); Absolute Neutrophil Count 11.3 X10^3/uL (2.0-7.7); Basophil# 0.11 X10^3/uL; Basophil% 0.7 % (0-1); Eosinophil# 0.31 X10^3/uL; Hematocrit 33.8 % (37-47); Hemoglobin 10.9 g/dL (12.0-15.0); Lymphocyte # 2.06 X10^3/ul (4.0); Lymphocyte % 13.5 % (19-41); Mean Corp Hgb Conc 32.2 g/dL (32-36); Mean Corpuscular Volume 93.1 fL (81-99); Mean Platelet Vol. 9.3 fl (6.2-12.0); Monocyte# 1.02 X10^3/uL; Monocyte% 6.7 % (0-10); NRBC Flagged by Analyzer 0 % (0-5); Neutrophil % 73.8 % (47-70); Platelet Count 360 K/mm3 (150-450); RBC Distribution Width CV 13.6 % (11.6-14.6); RBC Distribution Width SD 46.6 fl (35.1-43.9); Red Blood Count 3.63 M/mm3 (4.2-5.4); White Blood Count 15.3 K/mm3 (4.4-11.0)
[2019-06-07 04:28] LABS: Anion Gap 7 (5-15); BUN 14 mg/dL (7-18); BUN/Creat Ratio 20.5 RATIO (10-20); Calcium,Total 8.5 mg/dL (8.5-10.1); Chloride 102 mmol/L (98-107); Creatinine, Serum 0.68 mg/dL (0.55-1.02); EST Glomerular Filtration Rate 91 mL/min (>60); Est Glom Filt Rate - Afr Amer 110 mL/min (>60); Estimated Creatinine Clearance 41.19 ml/min; Glucose 102 mg/dL (74-106); Magnesium 2.1 mg/dL (1.6-2.6); Potassium 4.1 mmol/L (3.5-5.1); Sodium Level 141 mmol/L (136-145)
--- NOTE | 2019-06-07 06:21 | PN_ITS ---
Subjective: The patient was seen and examined at the bedside this morning. Events from the last 24 hours have been reviewed. The patient is currently afebrile, hemodynamically stable and maintaining appropriate oxygen saturations on BiPAP with an FiO2 requirement of 40%. The patient was able to be weaned for short periods of time overnight to 5 L/min. The patient remained short of breath this morning. Objective: The patient's most recent lab work, culture data and imaging studies have all been personally reviewed. General: Alert, Cooperative, No apparent distress, - - BIPAP in place HEENT: Atraumatic, PERRLA, Normocephalic Oral: No Gingival or Mucosal Lesions/ Ulcerations Neck: Supple, No Nodes, Trachea Midline Lungs: No rhonchi, Diminished, Wheezes Cardiovascular: Regular rate, Regular Rhythm, Normal S1, Normal S2, No murmurs Abdomen: Bowel Sounds Present, Soft, Non Tender, Obese Extremities: No clubbing, No cyanosis, Edema Skin: - - No significant change from previous Musculoskeletal: No Tenderness to Palpation of Joints or Extremities Lymphatic: No Cervical, Supraclavicular, or Inguinal Adenopathy Neurological: Cranial nerves II-XII grossly intact, Neuro grossly intact Psych/Mental Status: Normal Affect, Appropriate Vital Signs Temp Pulse Resp BP Pulse Ox 97.5 F L 54 L 23 H 141/65 H 96 06/07/19 04:00 06/07/19 06:00 06/07/19 06:00 06/07/19 06:00 06/07/19 06:00 Oxygen Flow Rate (L/min) 5 Oxygen Delivery Method Bi-pap Weight: 279 lb 8.738 oz Body Mass Index (BMI) 50.5 Intake and Output for Last 24 Hours 06/05/19 06/06/19 06/07/19 23:59 23:59 23:59 Intake Total 4542.49 / 4842.49 2286.92 / 2286.92 743.5 / 743.5 Output Total 1325 / 1425 2250 / 2250 350 / 350 Balance 3217.49 / 3417.49 36.92 / 36.92 393.5 / 393.5 Labs (Last 48 Hours) 06/05/19 06/05/19 06/05/19 05:26 05:26 06:41 WBC RBC Hgb Hct MCV MCH MCHC RDW Std Deviation RDW Coeff of Erica Plt Count MPV Immature Gran % (Auto) Neut % (Auto) Lymph % (Auto) Haywood % (Auto) Eos % (Auto) Baso % (Auto) Absolute Neuts (auto) Absolute Lymphs (auto) Nucleated RBC % Diff Path Review Reviewed ESR 127 H Sodium 142 Potassium 3.5 Chloride 107 Carbon Dioxide 27.0 Anion Gap 8 BUN 19 H Creatinine 0.75 Estim Creat Clear Calc 41.19 Est GFR (MDRD) Af Amer 99 Est GFR (MDRD) Non-Af 82 BUN/Creatinine Ratio 25.4 H Glucose 115 H Calcium 8.0 L Phosphorus 2.9 Magnesium 2.1 Total Bilirubin 0.40 AST 25 ALT 22 Alkaline Phosphatase 103 C-React Prot Ext Range 213.00 H B-Natriuretic Peptide Total Protein 6.7 Albumin 1.8 L Globulin 4.9 H Albumin/Globulin Ratio 0.4 L MRSA (PCR) POC Glucose 119 H 06/05/19 06/05/19 06/05/19 12:02 16:48 21:58 WBC RBC Hgb Hct MCV MCH MCHC RDW Std Deviation RDW Coeff of Erica Plt Count MPV Immature Gran % (Auto) Neut % (Auto) Lymph % (Auto) Haywood % (Auto) Eos % (Auto) Baso % (Auto) Absolute Neuts (auto) Absolute Lymphs (auto) Nucleated RBC % Diff Path Review ESR Sodium Potassium Chloride Carbon Dioxide Anion Gap BUN Creatinine Estim Creat Clear Calc Est GFR (MDRD) Af Amer Est GFR (MDRD) Non-Af BUN/Creatinine Ratio Glucose Calcium Phosphorus Magnesium Total Bilirubin AST ALT Alkaline Phosphatase C-React Prot Ext Range B-Natriuretic Peptide Total Protein Albumin Globulin Albumin/Globulin Ratio MRSA (PCR) POC Glucose 127 H 101 138 H 06/06/19 06/06/19 06/06/19 06:44 11:23 13:00 WBC 16.9 H RBC 3.77 L Hgb 11.3 L Hct 34.6 L MCV 91.8 MCH 30.0 MCHC 32.7 RDW Std Deviation 45.8 H RDW Coeff of Erica 13.6 Plt Count 394 MPV 9.3 Immature Gran % (Auto) Neut % (Auto) Lymph % (Auto) Haywood % (Auto) Eos % (Auto) Baso % (Auto) Absolute Neuts (auto) Absolute Lymphs (auto) Nucleated RBC % Diff Path Review ESR Sodium Potassium Chloride Carbon Dioxide Anion Gap BUN Creatinine Estim Creat Clear Calc Est GFR (MDRD) Af Amer Est GFR (MDRD) Non-Af BUN/Creatinine Ratio Glucose Calcium Phosphorus Magnesium Total Bilirubin AST ALT Alkaline Phosphatase C-React Prot Ext Range B-Natriuretic Peptide Total Protein Albumin Globulin Albumin/Globulin Ratio MRSA (PCR) POC Glucose 109 207 H 06/06/19 06/06/19 06/06/19 13:00 13:00 14:45 WBC RBC Hgb Hct MCV MCH MCHC RDW Std Deviation RDW Coeff of Erica Plt Count MPV Immature Gran % (Auto) Neut % (Auto) Lymph % (Auto) Haywood % (Auto) Eos % (Auto) Baso % (Auto) Absolute Neuts (auto) Absolute Lymphs (auto) Nucleated RBC % Diff Path Review ESR Sodium 137 Potassium 3.2 L Chloride 100 Carbon Dioxide 31.0 Anion Gap 6 BUN 15 Creatinine 0.72 Estim Creat Clear Calc 41.19 Est GFR (MDRD) Af Amer 103 Est GFR (MDRD) Non-Af 85 BUN/Creatinine Ratio 20.7 H Glucose 102 Calcium 8.5 Phosphorus Magnesium Total Bilirubin AST ALT Alkaline Phosphatase C-React Prot Ext Range B-Natriuretic Peptide 78.9 Total Protein Albumin Globulin Albumin/Globulin Ratio MRSA (PCR) Negative POC Glucose 06/06/19 06/06/19 06/07/19 17:03 21:11 03:30 WBC 15.3 H RBC 3.63 L Hgb 10.9 L Hct 33.8 L MCV 93.1 MCH 30.0 MCHC 32.2 RDW Std Deviation 46.6 H RDW Coeff of Erica 13.6 Plt Count 360 MPV 9.3 Immature Gran % (Auto) 3.300 H Neut % (Auto) 73.8 H Lymph % (Auto) 13.5 L Haywood % (Auto) 6.7 Eos % (Auto) 2.0 Baso % (Auto) 0.7 Absolute Neuts (auto) 11.3 H Absolute Lymphs (auto) 2.06 Nucleated RBC % 0 [address] Review ESR Sodium Potassium Chloride Carbon Dioxide Anion Gap BUN Creatinine Estim Creat Clear Calc Est GFR (MDRD) Af Amer Est GFR (MDRD) Non-Af BUN/Creatinine Ratio Glucose Calcium Phosphorus Magnesium Total Bilirubin AST ALT Alkaline Phosphatase C-React Prot Ext Range B-Natriuretic Peptide Total Protein Albumin Globulin Albumin/Globulin Ratio MRSA (PCR) POC Glucose 109 109 06/07/19 03:30 WBC RBC Hgb Hct MCV MCH MCHC RDW Std Deviation RDW Coeff of Erica Plt Count MPV Immature Gran % (Auto) Neut % (Auto) Lymph % (Auto) Haywood % (Auto) Eos % (Auto) Baso % (Auto) Absolute Neuts (auto) Absolute Lymphs (auto) Nucleated RBC % Diff Path Review ESR Sodium 141 Potassium 4.1 Chloride 102 Carbon Dioxide 32.0 Anion Gap 7 BUN 14 Creatinine 0.68 Estim Creat Clear Calc 41.19 Est GFR (MDRD) Af Amer 110 Est GFR (MDRD) Non-Af 91 BUN/Creatinine Ratio 20.5 H Glucose 102 Calcium 8.5 Phosphorus Magnesium 2.1 Total Bilirubin AST ALT Alkaline Phosphatase C-React Prot Ext Range B-Natriuretic Peptide Total Protein Albumin Globulin Albumin/Globulin Ratio MRSA (PCR) POC Glucose Microbiology 06/06/19 07:45 Sputum, Expectorated/Coughed Gram Stain - Final 06/04/19 02:28 Blood Culture (Wb) - Right Hand Blood Culture - Preliminary No growth in 48 hours. 06/04/19 03:15 Blood Culture (Wb) - Right Forearm Blood Culture - Preliminary No growth in 48 hours. Clinical Impression(s) from Imaging Studies Chest X-Ray 06/04/19 02:40 IMPRESSION: Scattered new pulmonary opacities within the right greater than left lung concerning for underlying pneumonia. Follow-up to resolution recommended. Electronically Signed: Mauricio Christopher, at 3:00 EDT Tel , Service support , Chest X-Ray 06/06/19 01:14 IMPRESSION: Multifocal pulmonary opacities, worse on the right, are similar to previous. This could represent pneumonia or edema. Electronically Signed: Bari Hancock, at 1:42 EDT Tel , Service support , Chest X-Ray 06/06/19 07:16 IMPRESSION: There has been improvement in the right apical and right lower lobe infiltrates. Stable left lower lobe infiltrate. Electronically Signed: Joshua Barksdale, at 10:47 EDT , Service support , Medical Necessity - Tobacco Use Smoking Status: Former smoker Assessment/Plan All Active Problems Pneumonia (Acute) Sepsis (Acute) Community acquired pneumonia (Acute) Acute respiratory insufficiency (Acute) RECOMMENDATIONS: 1. Continue BiPAP therapy with breaks on nasal cannula as tolerated. 2. Maintain oxygen saturation at or above 90%. 3. Recommend continuing broad-spectrum antimicrobials. 4. Okay to start steroids. 5. Await final culture results. IMPRESSIONS: 1. Acute hypoxemic respiratory failure The patient has radiographic evidence of multifocal pneumonia in the setting of a new oxygen requirement. Continue current supportive measures with the use of noninvasive positive pressure ventilatory support along with broad-spectrum antimicrobials, bronchodilators and steroids. Wean supplemental oxygen as tolerated to maintain saturations at or above 90%. 2. 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 Continue outpatient Hydrea. 3. Obstructive sleep apnea The patient has a known history of obstructive sleep apnea but has only been intermittently compliant with the use of nocturnal Pap therapy. She did complete a re-titration study in 2018, for which it was recommended that she be on bilevel therapy. However, it does not appear that the patient ever had her orders updated, as she is currently still utilizing a CPAP machine. For now, the patient will be continued on BiPAP therapy while admitted to the hospital. Orders for a transition to BiPAP will be placed upon discharge with plans for outpatient follow-up. 4. Anemia/hypertension/hyperlipidemia/diabetes mellitus/anxiety/depression Complicates care, management, recovery and prognosis. Okay to continue home med ications as indicated. This note was generated with [employer] software. It may contain incorrect words, spelling, and punctuation that were not noted in checking the note before signing. Code Visit Inpatient E&M: 01984 [facility] Hosp L3
--- NOTE | 2019-06-07 07:02 | PN_ITS ---
Patient Problems: Active and Suspected Problems Pneumonia (Acute) Sepsis (Acute) Community acquired pneumonia (Acute) Acute respiratory insufficiency (Acute) Subjective: Day #4 antibiotics-currently vancomycin and Zosyn All events of the past 24 hours of been reviewed. She was transferred to the ICU yesterday and required BiPAP but able to tolerate short periods of breaks. Afebrile since admission. She is hemodynamically stable. Respiratory rate remains increased over the past few hours has ranged from 23 to 26 breaths/min. She is maintaining an appropriate oxygen saturation on BiPAP with a 40% bleed in. Fluid balance on 06/06/2019 was +37 All lab was personally reviewed. The white blood cell count today is down to 15 .3 from 20.9 at admission. Hemoglobin is 10.9 are within normal limits. BMP is unremarkable. Culture is pending. Tells me she slept much better last night and feels rested this a.m. She continues to have coughing paroxysms. scant sputum production. She is complaining of a mild sore throat. When she was talking to me on a 6 L nasal cannula she desaturated to 85%. No diarrhea. No abdominal pain. - Physical Exam General: Alert, Oriented x3, Cooperative, - - coughing in paroxysms and desaturates with coughing......gets very red in the face. HEENT: PERRLA, EOMI Oral: Moist Mucosa, No Gingival or Mucosal Lesions/ Ulcerations Neck: Supple, No Nodes, No Nuchal Rigidity, Trachea Midline Lungs: Wheezes, - - Poor air exchange today.....wheezing Cardiovascular: Regular rate, Regular Rhythm, Normal S1, Normal S2, No murmurs, No rub noted, No Gallop, - - telemetry shows NSR/SB with PAC's and rare PVC's with 1 triplet Abdomen: Bowel Sounds Present, Soft, Non Tender, Non-Distended Extremities: No clubbing, No edema, No Calf Tenderness Skin: No rashes Neurological: Cranial nerves II-XII grossly intact, Neuro grossly intact Psych/Mental Status: Normal Affect, Appropriate Vital Signs Temp Pulse Resp BP Pulse Ox 97.5 F L 54 L 23 H 141/65 H 96 06/07/19 04:00 06/07/19 06:00 06/07/19 06:00 06/07/19 06:00 06/07/19 06:00 Oxygen Flow Rate (L/min) 5 Oxygen Delivery Method Bi-pap Weight: 279 lb 8.738 oz Body Mass Index (BMI) 50.5 Intake and Output for Last 24 Hours 06/05/19 06/06/19 06/07/19 23:59 23:59 23:59 Intake Total 4542.49 / 4842.49 2286.92 / 2286.92 743.5 / 743.5 Output Total 1325 / 1425 2250 / 2250 350 / 350 Balance 3217.49 / 3417.49 36.92 / 36.92 393.5 / 393.5 Microbiology Past 72 Hours 06/06/19 07:45 Gram Stain - Final Sputum, Expectorated/Coughed 06/04/19 02:28 Blood Culture - Preliminary Blood Culture (Wb) - Right Hand No growth in 48 hours. 06/04/19 03:15 Blood Culture - Preliminary Blood Culture (Wb) - Right Forearm No growth in 48 hours. 06/04/19 13:05 Streptococcus pneumoniae Antigen (M - Final Urine Catheter - Corona 06/04/19 13:05 Legionella Antigen - Final Urine Catheter - Corona 06/04/19 07:10 Respiratory Panel (PCR) - Final Mucosa - Nose Laboratory Tests Past 24 Hrs 06/06/19 06/06/19 06/06/19 13:00 13:00 13:00 WBC 16.9 H RBC 3.77 L Hgb 11.3 L Hct 34.6 L MCV 91.8 MCH 30.0 MCHC 32.7 RDW Std Deviation 45.8 H RDW Coeff of Erica 13.6 Plt Count 394 MPV 9.3 Immature Gran % (Auto) Neut % (Auto) Lymph % (Auto) Isabella % (Auto) Eos % (Auto) Baso % (Auto) Absolute Neuts (auto) Absolute Lymphs (auto) Nucleated RBC % Sodium 137 Potassium 3.2 L Chloride 100 Carbon Dioxide 31.0 Anion Gap 6 BUN 15 Creatinine 0.72 Estim Creat Clear Calc 41.19 Est GFR (MDRD) Af Amer 103 Est GFR (MDRD) Non-Af 85 BUN/Creatinine Ratio 20.7 H Glucose 102 Calcium 8.5 Magnesium B-Natriuretic Peptide 78.9 MRSA (PCR) 06/06/19 06/07/19 06/07/19 14:45 03:30 03:30 WBC 15.3 H RBC 3.63 L Hgb 10.9 L Hct 33.8 L MCV 93.1 MCH 30.0 MCHC 32.2 RDW Std Deviation 46.6 H RDW Coeff of Erica 13.6 Plt Count 360 MPV 9.3 Immature Gran % (Auto) 3.300 H Neut % (Auto) 73.8 H Lymph % (Auto) 13.5 L Isabella % (Auto) 6.7 Eos % (Auto) 2.0 Baso % (Auto) 0.7 Absolute Neuts (auto) 11.3 H Absolute Lymphs (auto) 2.06 Nucleated RBC % 0 Sodium 141 Potassium 4.1 Chloride 102 Carbon Dioxide 32.0 Anion Gap 7 BUN 14 Creatinine 0.68 Estim Creat Clear Calc 41.19 Est GFR (MDRD) Af Amer 110 Est GFR (MDRD) Non-Af 91 BUN/Creatinine Ratio 20.5 H Glucose 102 Calcium 8.5 Magnesium 2.1 B-Natriuretic Peptide MRSA (PCR) Negative POC Glucose 06/06/19 06/06/19 06/06/19 21:11 17:03 11:23 POC Glucose 109 109 207 H 06/06/19 06:44 POC Glucose 109 Medical Necessity - Tobacco Use Smoking Status: Former smoker Assessment/Plan All Active Problems Pneumonia (Acute) Sepsis (Acute) Community acquired pneumonia (Acute) Acute respiratory insufficiency (Acute) Impressions 1. Sepsis secondary to community-acquired pneumonia. Streptococcal and Legionella antibodies in the urine are negative. Respiratory panel is negative. Blood cultures have no growth after 48 hours. Sputum Gram stain shows 3+ white blood cells with rare gram-positive cocci. Culture is pending. MRSA nasal swab was negative. Transferred to the intensive care unit on 06/06/2019 for increased oxygen requirements and started on BiPAP. Continue vancomycin and Zosyn pending the results of the sputum culture. 2. Acute respiratory failure with hypoxemia secondary to acute community- acquired pneumonia - still requiring BIPAP to maintain the O2 saturations > 89%. 3. Normochromic normocytic anemia of undetermined etiology. Hemoccult stool ordered. 4. 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 Follows with Dr. Melara and has received no chemotherapy or radiation. 5. Thrombocytopenia/hypertension/hyperlipidemia/diabetes mellitus type 2/anxiety/depression/morbid obesity - chronic conditions. Continue OP medications. 6. JAJA - prescribed BIPAP at home with settings - not always compliant because it makes her feel as though she is smothering...she insists she has CPAP and it is set on 7? 7. Enoxaparin for DVT prophylaxis Will discuss with Dr. Zheng starting steroids for bronchospasm. She is very tight today and moving a lot less air than she was on previous days. Code Visit Inpatient E&M: 48737 [facility] Hosp L3
[2019-06-07] MEDS: 0.9% NaCl Peripheral Flush Adult/Peds IV ×2 (08:31→15:14)
[2019-06-07] MEDS: MethylPREDNISolone 125 MG/2 ML Vial IV (08:31)
--- NOTE | 2019-06-07 10:10 | CASEMGMT ---
Addendum entered by Jody Darnell 06/08/19 11:18: Call received from Amy @ [employer] She states she was able to get a copy of the original sleep study. Amy states they plan to deliver the BIPAP to pt @ the hospital prior to discharge. She placed call to pt while [employer] in pt's room at this time to discuss financial information with pt. Addendum entered by Jody Darnell 06/08/19 10:57: Call placed to [facility]. Message left on her VM to inform her Dr Antonio does not anticipate pt will be discharged until the beginning of next week. Addendum entered by Jody Darnell 06/08/19 10:34: Spoke to Amy @ [facility] [place]. She states they still need copies of original sleep study. Amy states she will work on getting this documentation today. Addendum entered by Jody Darnell 06/07/19 14:23: Per Dr Zheng, pt will need new BIPAP equipment @ home. Pt currently has CPAP @ home but had sleep studies done 04/2018 showing that pt requiring a BIPAP now. Script received from Dr Zheng for BIPAP and faxed to [employer]. Demographics, insurance information, and sleep study results were also faxed previously. Confirmation received that fax went through successfully. Original Note: [employer] NOTE: Participated in ICU Rounds. Pt resting in bed, awake/alert. Daughter present @ bedside. Pt states her and her daughter state first choice of DME company is [employer]. PT/OT evals pending. Discussed discharge planning with pt and her daughter. They are both agreeable to [facility] @ discharge. Provided with list of local [facility] agencies. They both state first preference is [facility]. Call placed to [facility] and she state pt's address is within their covering area and they are able to accept pt. Order placed for [facility]: USP, PT/OT eval and treat, and aide. Discharge disposition: Home with [facility] Pt will need Home oxygen walking testing completed prior to discharge. Preferred DME company is [employer]. Moiz THORPEN [employer]
--- NOTE | 2019-06-07 11:28 | CASEMGMT ---
SW spoke w/pt about completing LW/POA forms. Pt's daughter and [id number] present. Pt is not feeling well at present, on bi-pap and coughing. SW explained can return tomorrow and we can complete the documents then. Pt agreeable to this. SW will see pt tomorrow and assist in completing LW/POA documents. MALINA Wesley
[2019-06-07] MEDS: amLODIPine 10 MG Tablet PO (12:17)
[2019-06-07] MEDS: Metoprolol Tartrate 100 MG Tablet PO ×2 (12:17→22:36)
[2019-06-07] MEDS: Famotidine 20 MG Tablet PO ×2 (12:17→22:36)
[2019-06-07] MEDS: FLUoxetine 20 MG Capsule 40 MG PO (12:17)
[2019-06-07] MEDS: Enoxaparin 40 MG/0.4 ML Syringe SC (12:17)
[2019-06-07 13:10] LABS: Bedside Glucose 244 mg/dL (70-110)
[2019-06-07] MEDS: Insulin Lispro 100 UNIT/ML INSULN.PEN SC ×3 (13:27→22:30)
[2019-06-07] MEDS: 0.9% NaCl IVPB Med Flush (250 mL) 15 ML IV (15:58)
[2019-06-07 17:11] LABS: Bedside Glucose 165 mg/dL (70-110)
[2019-06-07] MEDS: Atorvastatin Calcium 10 MG Tablet PO (22:36)
[2019-06-08] VITALS (27 sets, daily range): BP systolic 96–148; BP diastolic 56–91; PULSE 42–71; RESP 12–25; TEMP 36.4–36.9; O2SAT 89–96
[2019-06-08] MEDS: Ipratropium/Albuterol Sulfate 3 ML AMPUL.NEB INHALATION ×2 (01:30→06:47)
[2019-06-08 01:36] LABS: Bedside Glucose 198 mg/dL (70-110)
[2019-06-08 03:28] LABS: Vancomycin, Trough Level 18.1 ug/mL (5.0-15.0)
--- NOTE | 2019-06-08 04:02 | PCM.RX.CS ---
Consult Pharmacy has been consulted to manage selected antiobiotic: Vancomycin Type of Consult: Follow-up Suspected Infection: Sepsis, Pneumonia Labs: Sodium 141 mmol/L (136-145) 06/07/19 03:30 Potassium 4.1 mmol/L (3.5-5.1) 06/07/19 03:30 Chloride 102 mmol/L (98-107) 06/07/19 03:30 Carbon Dioxide 32.0 mmol/L (21.0-32.0) 06/07/19 03:30 Anion Gap 7 (5-15) 06/07/19 03:30 BUN 14 mg/dL (7-18) 06/07/19 03:30 Creatinine 0.68 mg/dL (0.55-1.02) 06/07/19 03:30 Est GFR (MDRD) Af Amer 110 mL/min (>60) 06/07/19 03:30 Est GFR (MDRD) Non-Af 91 mL/min (>60) 06/07/19 03:30 BUN/Creatinine Ratio 20.5 RATIO (10-20) H 06/07/19 03:30 Glucose 102 mg/dL (74-106) 06/07/19 03:30 Vancomycin Trough 18.1 ug/mL (5.0-15.0) H 06/08/19 02:35 Microbiology: Microbiology 06/06/19 07:45 Sputum, Expectorated/Coughed Gram Stain - Final 06/06/19 07:45 Sputum, Expectorated/Coughed Respiratory Culture - Preliminary Appears to be normal respiratory yue. Further studies to follow. 06/04/19 02:28 Blood Culture (Wb) - Right Hand Blood Culture - Preliminary No growth in 48 hours. 06/04/19 03:15 Blood Culture (Wb) - Right Forearm Blood Culture - Preliminary No growth in 48 hours. 06/04/19 13:05 Urine Catheter - Corona Streptococcus pneumoniae Antigen (M - Final 06/04/19 13:05 Urine Catheter - Corona Legionella Antigen - Final 06/04/19 07:10 Mucosa - Nose Respiratory Panel (PCR) - Final Goal Trough: 15-20 mcg/mL Pharmacy Plan for Drug Dosing: Pharmacy Service will continue to monitor and adjust dosing as required. TROUGH 18.1 NO CHANGES REDRAW TROUGH 06/12 @ 0230 Follow-Up Labs: Trough Vancomycin Labs to be done on [date and time ordered]: 06/12 @ 3095
--- NOTE | 2019-06-08 06:24 | PCM.PN.INT ---
Subjective: The patient was seen and examined at the bedside this morning. Events from the last 24 hours have been reviewed. The patient is currently afebrile, hemodynamically stable and maintaining appropriate oxygen saturations on BiPAP with an FiO2 requirement of 40%. The patient has been bradycardic most of the night with heart rates in the 40s and 50s. No additional overnight issues were noted by the nursing staff. The patient transitioned on and off of BiPAP to nasal cannula supplemental oxygen throughout the day yesterday. The patient is currently receiving an aerosol treatment. She reports little overall change in her breathing quality. She continues to have a nonproductive cough. Objective: The patient's most recent lab work, culture data and imaging studies have all been personally reviewed. Infectious work-up has been unrevealing to date. General: Alert, Cooperative, No apparent distress, - - Currently saturating 97% with a aerosol mask in place HEENT: Atraumatic, PERRLA, Normocephalic Oral: No Gingival or Mucosal Lesions/ Ulcerations Neck: Supple, No Nodes, Trachea Midline Lungs: - - Diminished bilaterally without appreciable wheezes, rales or rhonchi. Frequent paroxysms of coughing. Cardiovascular: Normal S1, Normal S2, No murmurs, Bradycardic Abdomen: Bowel Sounds Present, Soft, Non Tender, Obese Extremities: No clubbing, No cyanosis, Edema Skin: - - No significant change from previous. Musculoskeletal: No Tenderness to Palpation of Joints or Extremities, No Muscle Wasting Lymphatic: No Cervical, Supraclavicular, or Inguinal Adenopathy Neurological: Cranial nerves II-XII grossly intact, Neuro grossly intact Psych/Mental Status: Normal Affect, Appropriate Vital Signs Temp Pulse Resp BP Pulse Ox 97.6 F L 47 L 21 H 139/60 H 94 06/08/19 04:00 06/08/19 05:00 06/08/19 05:00 06/08/19 05:00 06/08/19 05:00 Oxygen Flow Rate (L/min) 5 Oxygen Delivery Method Bi-pap Weight: 284 lb 9.868 oz Body Mass Index (BMI) 50.5 Intake and Output for Last 24 Hours 06/06/19 06/07/19 06/08/19 23:59 23:59 23:59 Intake Total 2286.92 / 2286.92 2089.25 / 2329.25 887 / 887 Output Total 2250 / 2250 2150 / 2150 Balance 36.92 / 36.92 -60.75 / 179.25 887 / 887 Labs (Last 48 Hours) 06/06/19 06/06/19 06/06/19 06:44 11:23 13:00 WBC 16.9 H RBC 3.77 L Hgb 11.3 L Hct 34.6 L MCV 91.8 MCH 30.0 MCHC 32.7 RDW Std Deviation 45.8 H RDW Coeff of Erica 13.6 Plt Count 394 MPV 9.3 Immature Gran % (Auto) Neut % (Auto) Lymph % (Auto) Benzie % (Auto) Eos % (Auto) Baso % (Auto) Absolute Neuts (auto) Absolute Lymphs (auto) Nucleated RBC % Sodium Potassium Chloride Carbon Dioxide Anion Gap BUN Creatinine Estim Creat Clear Calc Est GFR (MDRD) Af Amer Est GFR (MDRD) Non-Af BUN/Creatinine Ratio Glucose Calcium Magnesium B-Natriuretic Peptide Vancomycin Trough MRSA (PCR) POC Glucose 109 207 H 06/06/19 06/06/19 06/06/19 13:00 13:00 14:45 WBC RBC Hgb Hct MCV MCH MCHC RDW Std Deviation RDW Coeff of Erica Plt Count MPV Immature Gran % (Auto) Neut % (Auto) Lymph % (Auto) Benzie % (Auto) Eos % (Auto) Baso % (Auto) Absolute Neuts (auto) Absolute Lymphs (auto) Nucleated RBC % Sodium 137 Potassium 3.2 L Chloride 100 Carbon Dioxide 31.0 Anion Gap 6 BUN 15 Creatinine 0.72 Estim Creat Clear Calc 41.19 Est GFR (MDRD) Af Amer 103 Est GFR (MDRD) Non-Af 85 BUN/Creatinine Ratio 20.7 H Glucose 102 Calcium 8.5 Magnesium B-Natriuretic Peptide 78.9 Vancomycin Trough MRSA (PCR) Negative POC Glucose 06/06/19 06/06/19 06/07/19 17:03 21:11 03:30 WBC 15.3 H RBC 3.63 L Hgb 10.9 L Hct 33.8 L MCV 93.1 MCH 30.0 MCHC 32.2 RDW Std Deviation 46.6 H RDW Coeff of Erica 13.6 Plt Count 360 MPV 9.3 Immature Gran % (Auto) 3.300 H Neut % (Auto) 73.8 H Lymph % (Auto) 13.5 L Benzie % (Auto) 6.7 Eos % (Auto) 2.0 Baso % (Auto) 0.7 Absolute Neuts (auto) 11.3 H Absolute Lymphs (auto) 2.06 Nucleated RBC % 0 Sodium Potassium Chloride Carbon Dioxide Anion Gap BUN Creatinine Estim Creat Clear Calc Est GFR (MDRD) Af Amer Est GFR (MDRD) Non-Af BUN/Creatinine Ratio Glucose Calcium Magnesium B-Natriuretic Peptide Vancomycin Trough MRSA (PCR) POC Glucose 109 109 06/07/19 06/07/19 06/07/19 03:30 13:02 16:55 WBC RBC Hgb Hct MCV MCH MCHC RDW Std Deviation RDW Coeff of Erica Plt Count MPV Immature Gran % (Auto) Neut % (Auto) Lymph % (Auto) Benzie % (Auto) Eos % (Auto) Baso % (Auto) Absolute Neuts (auto) Absolute Lymphs (auto) Nucleated RBC % Sodium 141 Potassium 4.1 Chloride 102 Carbon Dioxide 32.0 Anion Gap 7 BUN 14 Creatinine 0.68 Estim Creat Clear Calc 41.19 Est GFR (MDRD) Af Amer 110 Est GFR (MDRD) Non-Af 91 BUN/Creatinine Ratio 20.5 H Glucose 102 Calcium 8.5 Magnesium 2.1 B-Natriuretic Peptide Vancomycin Trough MRSA (PCR) POC Glucose 244 H 165 H 06/07/19 06/08/19 22:29 02:35 WBC RBC Hgb Hct MCV MCH MCHC RDW Std Deviation RDW Coeff of Erica Plt Count MPV Immature Gran % (Auto) Neut % (Auto) Lymph % (Auto) Benzie % (Auto) Eos % (Auto) Baso % (Auto) Absolute Neuts (auto) Absolute Lymphs (auto) Nucleated RBC % Sodium Potassium Chloride Carbon Dioxide Anion Gap BUN Creatinine Estim Creat Clear Calc Est GFR (MDRD) Af Amer Est GFR (MDRD) Non-Af BUN/Creatinine Ratio Glucose Calcium Magnesium B-Natriuretic Peptide Vancomycin Trough 18.1 H MRSA (PCR) POC Glucose 198 H Microbiology 06/06/19 07:45 Sputum, Expectorated/Coughed Gram Stain - Final 06/06/19 07:45 Sputum, Expectorated/Coughed Respiratory Culture - Preliminary Appears to be normal respiratory yue. Further studies to follow. 06/04/19 02:28 Blood Culture (Wb) - Right Hand Blood Culture - Preliminary No growth in 48 hours. 06/04/19 03:15 Blood Culture (Wb) - Right Forearm Blood Culture - Preliminary No growth in 48 hours. Clinical Impression(s) from Imaging Studies Chest X-Ray 06/04/19 02:40 IMPRESSION: Scattered new pulmonary opacities within the right greater than left lung concerning for underlying pneumonia. Follow-up to resolution recommended. Electronically Signed: Mauricio Christopher, at 3:00 EDT Tel , Service support , Chest X-Ray 06/06/19 01:14 IMPRESSION: Multifocal pulmonary opacities, worse on the right, are similar to previous. This could represent pneumonia or edema. Electronically Signed: Bari Hancock, at 1:42 EDT Tel , Service support , Chest X-Ray 06/06/19 07:16 IMPRESSION: There has been improvement in the right apical and right lower lobe infiltrates. Stable left lower lobe infiltrate. Electronically Signed: Joshua Barksdale, at 10:47 EDT , Service support , Medical Necessity - Tobacco Use Smoking Status: Former smoker Assessment/Plan All Active Problems Pneumonia (Acute) Sepsis (Acute) Community acquired pneumonia (Acute) Acute respiratory insufficiency (Acute) RECOMMENDATIONS: 1. Continue BiPAP therapy with breaks on nasal cannula as tolerated. 2. Maintain oxygen saturation at or above 90%. 3. Recommend continuing broad-spectrum antimicrobials and steroids as ordered. 4. Continue bronchopulmonary hygiene and mobilize patient as tolerated. 5. Change bronchodilators to PRN from scheduled. IMPRESSIONS: 1. Acute hypoxemic respiratory failure The patient has radiographic evidence of multifocal pneumonia in the setting of a new oxygen requirement. Continue current supportive measures with the use of noninvasive positive pressure ventilatory support along with broad-spectrum antimicrobials, PRN bronchodilators and steroids. Wean supplemental oxygen as tolerated to maintain saturations at or above 90%. 2. 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 Continue outpatient Hydrea. 3. Obstructive sleep apnea The patient has a known history of obstructive sleep apnea but has only been intermittently compliant with the use of nocturnal Pap therapy. She did complete a re-titration study in 2018, for which it was recommended that she be on bilevel therapy. However, it does not appear that the patient ever had her orders updated, as she is currently still utilizing a CPAP machine. For now, the patient will be continued on BiPAP therapy while admitted to the hospital. Orders for a transition to BiPAP will be placed upon discharge with plans for outpatient follow-up. 4. Anemia/hypertension/hyperlipidemia/diabetes mellitus/anxiety/depression Complicates care, management, recovery and prognosis. Okay to continue home medications as indicated. This note was generated with [employer] dictation software. It may contain incorrect words, spelling, and punctuation that were not noted in checking the note before signing. Code Visit Inpatient E&M: 98098 [facility] L[facility]
--- NOTE | 2019-06-08 06:31 | PN_ITS ---
Patient Problems: Active and Suspected Problems Pneumonia (Acute) Sepsis (Acute) Community acquired pneumonia (Acute) Acute respiratory insufficiency (Acute) Subjective: Day #5 antibiotics-vancomycin and Zosyn All events of the past 24 hours been reviewed. Afebrile the past 24 hours Hemodynamically stable, sinus bradycardia at the night. Blood pressure has been within normal limits with discontinuation of lisinopril and will continue to monitor. On and off BiPAP and nasal cannula throughout the day yesterday. On BiPAP thr oughout the night. Pulse ox on BiPAP with a 40% FiO2 ranges from 93 to 95%. Fluid balance on 06/07/2019 was -60. Fluid balance since admission is +5400. Vancomycin trough is 18.1. Preliminary on the sputum is normal respiratory yue, patient had had 3 days of antibiotics prior to her being able to produce a sputum Left well last night. Denies chest pain. Denies abdominal pain. He was sitti ng up in the chair when I entered the room. Ate a good breakfast. No diarrhea, no sores in her mouth, no vaginal itching or discharge. Seems to have coughing paroxysms mostly after aerosol treatments. Objective: General: Alert, Oriented x3, Cooperative, - - coughing in paroxysms and desaturates with coughing into the low to mid 80's on a 5 L cannula......gets very red in the face. HEENT: PERRLA, EOMI Oral: Moist Mucosa, No Gingival or Mucosal Lesions/ Ulcerations Neck: Supple, No Nodes, No Nuchal Rigidity, Trachea Midline Lungs: No wheezing today. Crackles in the bases have improved significantly since admission. She has better air exchange since the steroids were started. Cardiovascular: Mildly bradycardic, Regular Rhythm, Normal S1, Normal S2, No murmurs, No rub noted, No Gallop, - - telemetry shows NSR/SB with PAC's and rare PVC's Abdomen: Bowel Sounds Present, Soft, Non Tender, Non-Distended Extremities: No clubbing, No edema, No Calf Tenderness Skin: No rashes Neurological: Cranial nerves II-XII grossly intact, Neuro grossly intact Psych/Mental Status: Normal Affect, Appropriate - Physical Exam Vital Signs Temp Pulse Resp BP Pulse Ox 97.6 F L 54 L 22 H 148/60 H 93 06/08/19 04:00 06/08/19 06:00 06/08/19 06:00 06/08/19 06:00 06/08/19 06:00 Oxygen Flow Rate (L/min) 5 Oxygen Delivery Method Bi-pap Weight: 284 lb 9.868 oz Body Mass Index (BMI) 50.5 Intake and Output for Last 24 Hours 06/06/19 06/07/19 06/08/19 23:59 23:59 23:59 Intake Total 2286.92 / 2286.92 2089.25 / 2329.25 887 / 887 Output Total 2250 / 2250 2150 / 2150 50 / 50 Balance 36.92 / 36.92 -60.75 / 179.25 837 / 837 Microbiology Past 72 Hours 06/06/19 07:45 Gram Stain - Final Sputum, Expectorated/Coughed Respiratory Culture - Preliminary Appears to be normal respiratory yue. Further studies to follow. 06/04/19 02:28 Blood Culture - Preliminary Blood Culture (Wb) - Right Hand No growth in 48 hours. 06/04/19 03:15 Blood Culture - Preliminary Blood Culture (Wb) - Right Forearm No growth in 48 hours. Laboratory Tests Past 24 Hrs 06/08/19 02:35 Vancomycin Trough 18.1 H POC Glucose 06/07/19 06/07/19 06/07/19 22:29 16:55 13:02 POC Glucose 198 H 165 H 244 H Medical Necessity - Tobacco Use Smoking Status: Former smoker Assessment/Plan All Active Problems Pneumonia (Acute) Sepsis (Acute) Community acquired pneumonia (Acute) Acute respiratory insufficiency (Acute) Day #5 antibiotics-vancomycin and Zosyn currently Impressions 1. Sepsis secondary to community-acquired pneumonia. Streptococcal and Legionella antibodies in the urine are negative. Respiratory panel is negative. Blood cultures have no growth after 48 hours. Sputum Gram stain shows 3+ white blood cells with rare gram-positive cocci. Culture is pending. MRSA nasal swab was negative. Transferred to the intensive care unit on 06/06/2019 for increased oxygen requirements and started on BiPAP. Continue vancomycin and Zosyn pending the final results of the sputum culture. Preliminary results on the sputum c ulture are appears to be normal respiratory yue-final still pending. 2. Acute respiratory failure with hypoxemia secondary to acute community- acquired pneumonia - still requiring BIPAP to maintain the O2 saturations > 89% at times dueing the day, eric when coughing 3. Normochromic normocytic anemia of undetermined etiology. Hemoccult stool ordered. 4. 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 Follows with Dr[address] Melara and tells me that her chest x-ray in March showed no recurrence. 5. Thrombocytopenia/hypertension/hyperlipidemia/diabetes mellitus type 2/anxiety/depression/morbid obesity - chronic conditions. Continue OP medications. 6. JAJA - prescribed BIPAP at home with settings - not always compliant because it makes her feel as though she is smothering...she insists she has CPAP and it is set on 7....her machine is 10 years old so it is likely she is not on appropriate pressure support 7. Enoxaparin for DVT prophylaxis Maintain in ICU since she is still requiring BIPAP throughout the day....may downgrade to ICU status. Make the aerosols PRN and continue Solu-medrol. Aerosols seem to be triggering bronchospasm Recheck CBC and BMP in the AM Code Visit Inpatient E&M: 49449 [facility] Hosp L3
[2019-06-08 08:06] LABS: Bedside Glucose 150 mg/dL (70-110)
[2019-06-08] MEDS: Insulin Lispro 100 UNIT/ML INSULN.PEN SC ×3 (08:35→21:58)
[2019-06-08] MEDS: Hydroxyurea 500 MG Capsule PO (08:36)
[2019-06-08] MEDS: amLODIPine 10 MG Tablet PO (08:37)
[2019-06-08] MEDS: Metoprolol Tartrate 100 MG Tablet PO ×2 (08:37→21:41)
[2019-06-08] MEDS: Enoxaparin 40 MG/0.4 ML Syringe SC (08:37)
[2019-06-08] MEDS: FLUoxetine 20 MG Capsule 40 MG PO (08:38)
[2019-06-08] MEDS: Famotidine 20 MG Tablet PO ×2 (08:38→21:41)
[2019-06-08 11:11] LABS: Bedside Glucose 154 mg/dL (70-110)
[2019-06-08 17:20] LABS: Bedside Glucose 147 mg/dL (70-110)
[2019-06-08] MEDS: Atorvastatin Calcium 10 MG Tablet PO (21:41)
[2019-06-08] MEDS: 0.9% NaCl Peripheral Flush Adult/Peds IV (21:42)
[2019-06-08 22:05] LABS: Bedside Glucose 170 mg/dL (70-110)
[2019-06-09] VITALS (19 sets, daily range): BP systolic 111–183; BP diastolic 48–93; PULSE 39–74; RESP 12–20; TEMP 36.4–36.8; O2SAT 89–97
--- NOTE | 2019-06-09 00:28 | NURSING ---
nurse to nurse report given to Zaynab Trejo MACHINE PULLER
--- NOTE | 2019-06-09 00:29 | NURSING ---
Pt report received from GRUPO Stallings.
[2019-06-09] MEDS: 0.9% NaCl Peripheral Flush Adult/Peds IV (05:47)
[2019-06-09 07:03] LABS: Hematocrit 33.6 % (37-47); Hemoglobin 10.7 g/dL (12.0-15.0); Mean Corp Hgb Conc 31.8 g/dL (32-36); Mean Corpuscular Hgb 30.1 pg (27.0-32.0); Mean Corpuscular Volume 94.4 fL (81-99); Mean Platelet Vol. 9.6 fl (6.2-12.0); Platelet Count 410 K/mm3 (150-450); RBC Distribution Width CV 13.7 % (11.6-14.6); RBC Distribution Width SD 47.2 fl (35.1-43.9); Red Blood Count 3.56 M/mm3 (4.2-5.4); White Blood Count 15.7 K/mm3 (4.4-11.0)
--- NOTE | 2019-06-09 07:04 | PN_ITS ---
Patient Problems: Active and Suspected Problems Pneumonia (Acute) Sepsis (Acute) Community acquired pneumonia (Acute) Acute respiratory insufficiency (Acute) Subjective: The patient was seen and examined at the bedside this morning. Events from the last 24 hours have been reviewed. The patient is currently afebrile, hemodynamically stable and maintaining appropriate oxygen saturations on 5 L/min via nasal cannula. The patient was once again tolerant of BiPAP overnight. She does believe that her shortness of breath is improved this morning. Objective: The patient's most recent lab work, culture data and imaging studies have all been personally reviewed. Infectious work-up has been unrevealing to date. - Physical Exam General: Alert, Oriented x3, Cooperative, No apparent distress HEENT: Atraumatic, PERRLA, Normocephalic Oral: No Gingival or Mucosal Lesions/ Ulcerations Neck: Supple, No Nodes, Trachea Midline Lungs: - - Diminished bilaterally without appreciable wheezes, rales or rhonchi. No coughing noted on today's examination. Cardiovascular: Normal S1, Normal S2, No murmurs, Bradycardic Abdomen: Bowel Sounds Present, Soft, Non Tender, Obese Extremities: No clubbing, No cyanosis, No edema Skin: No breakdown Musculoskeletal: No Tenderness to Palpation of Joints or Extremities, No Muscle Wasting Lymphatic: No Cervical, Supraclavicular, or Inguinal Adenopathy Neurological: Cranial nerves II-XII grossly intact, Neuro grossly intact Psych/Mental Status: Alert and oriented to time, place, person, mood and affect Vital Signs Temp Pulse Resp BP Pulse Ox 98.1 F 45 L 18 152/74 H 97 06/09/19 06:15 06/09/19 06:15 06/09/19 06:15 06/09/19 06:15 06/09/19 06:15 Oxygen Flow Rate (L/min) 5 Oxygen Delivery Method Bi-pap Weight: 283 lb 8.231 oz Body Mass Index (BMI) 50.5 Intake and Output for Last 24 Hours 06/07/19 06/08/19 06/09/19 23:59 23:59 23:59 Intake Total 2089.25 / 2329.25 2006 1049.5 / 1049.5 Output Total 2150 / 2150 650 / 1250 600 / 600 Balance -60.75 / 179.25 1357 / 957 449.5 / 449.5 Microbiology Past 72 Hours 06/06/19 07:45 Gram Stain - Final Sputum, Expectorated/Coughed Respiratory Culture - Final 06/04/19 02:28 Blood Culture - Preliminary Blood Culture (Wb) - Right Hand No growth in 48 hours. 06/04/19 03:15 Blood Culture - Preliminary Blood Culture (Wb) - Right Forearm No growth in 48 hours. Laboratory Tests Past 24 Hrs 06/09/19 06/09/19 05:45 05:45 WBC Pending RBC Pending Hgb Pending Hct Pending MCV Pending MCH Pending MCHC Pending RDW Std Deviation Pending RDW Coeff of Erica Pending Plt Count Pending Sodium Pending Potassium Pending Chloride Pending Carbon Dioxide Pending Anion Gap Pending BUN Pending Creatinine Pending Est GFR (MDRD) Af Amer Pending Est GFR (MDRD) Non-Af Pending BUN/Creatinine Ratio Pending Glucose Pending Calcium Pending Magnesium Pending POC Glucose 06/08/19 06/08/19 06/08/19 21:57 17:17 11:07 POC Glucose 170 H 147 H 154 H 06/08/19 07:39 POC Glucose 150 H Clinical Impression(s) from Imaging Studies Chest X-Ray 06/04/19 02:40 IMPRESSION: Scattered new pulmonary opacities within the right greater than left lung concerning for underlying pneumonia. Follow-up to resolution recommended. Electronically Signed: Mauricio Christopher, at 3:00 EDT Tel , Service support , Chest X-Ray 06/06/19 01:14 IMPRESSION: Multifocal pulmonary opacities, worse on the right, are similar to previous. This could represent pneumonia or edema. Electronically Signed: Bari Hancock, at 1:42 EDT Tel , Service support , Chest X-Ray 06/06/19 07:16 IMPRESSION: There has been improvement in the right apical and right lower lobe infiltrates. Stable left lower lobe infiltrate. Electronically Signed: Joshua Barksdale, at 10:47 EDT , Service support , Medical Necessity - Tobacco Use Smoking Status: Former smoker Assessment/Plan All Active Problems Pneumonia (Acute) Sepsis (Acute) Community acquired pneumonia (Acute) Acute respiratory insufficiency (Acute) RECOMMENDATIONS: 1. Continue to wean supplemental oxygen to maintain saturations at or above 90%. 2. Continue BiPAP therapy with naps and nightly. 3. Continue antimicrobials and steroids as ordered. 4. Continue bronchopulmonary hygiene and mobilize patient as tolerated. 5. Continue PRN bronchodilators. 6. Obtain repeat CXR this AM. IMPRESSIONS: 1. Acute hypoxemic respiratory failure The patient has radiographic evidence of multifocal pneumonia in the setting of a new oxygen requirement. Continue current supportive measures with the use of noninvasive positive pressure ventilatory support along with antimicrobials, PRN bronchodilators and steroids. Wean supplemental oxygen as tolerated to maintain saturations at or above 90%. Will obtain repeat plain film chest x-ray this morning. Nursing staff to ambulate patient in the hallway and document supplemental oxygen need. 2. 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 Continue outpatient Hydrea. 3. Obstructive sleep apnea The patient has a known history of obstructive sleep apnea but has only been intermittently compliant with the use of nocturnal Pap therapy. She did complete a re-titration study in 2018, for which it was recommended that she be on bilevel therapy. However, it does not appear that the patient ever had her orders updated, as she is currently still utilizing a CPAP machine. For now, the patient will be continued on BiPAP therapy while admitted to the hospital. Orders for a transition to BiPAP will be placed upon discharge with plans for outpatient follow-up. 4. Anemia/hypertension/hyperlipidemia/diabetes mellitus/anxiety/depression Complicates care, management, recovery and prognosis. Okay to continue home medications as indicated. This note was generated with [employer] software. It may contain incorrect words, spelling, and punctuation that were not noted in checking the note before signing. Code Visit Inpatient E&M: 71782 [facility] Hosp L2
--- NOTE | 2019-06-09 07:05 | RAD_ITS ---
STUDY: X-RAY CHEST REASON FOR EXAM: Female, 68 years old. Shortness of breath. Dyspnea. TECHNIQUE: Single AP portable view of the chest. COMPARISON: June 06, 2019 FINDINGS: There are monitoring and support devices. There are right mid and bilateral lower lung groundglass and interstitial increased opacities. There is no demonstrated pleural abnormality. There is moderate cardiac enlargement. Normal mediastinum and colt. Normal visualized pulmonary arteries. There is atherosclerotic tortuosity of the aortic arch and descending thoracic aorta. Normal visualized thoracic spine. Normal visualized ribs, clavicles, and shoulders. There is no demonstrated abnormality of the visualized soft tissue structures of the upper abdomen. RAD/Chest 1 View (Portable) IMPRESSION: Bilateral edema or infiltrates. Cardiac enlargement. Electronically Signed: Blair Bui MD at 10:34 EDT , Service support ,
[2019-06-09 07:06] LABS: Bedside Glucose 142 mg/dL (70-110)
[2019-06-09 07:23] LABS: Anion Gap 7 (5-15); BUN 22 mg/dL (7-18); BUN/Creat Ratio 27.4 RATIO (10-20); Calcium,Total 8.4 mg/dL (8.5-10.1); Chloride 107 mmol/L (98-107); EST Glomerular Filtration Rate 75 mL/min (>60); Est Glom Filt Rate - Afr Amer 91 mL/min (>60); Estimated Creatinine Clearance 51.49 ml/min; Glucose 150 mg/dL (74-106); Magnesium 2.3 mg/dL (1.6-2.6); Sodium Level 144 mmol/L (136-145)
[2019-06-09] MEDS: Enoxaparin 40 MG/0.4 ML Syringe SC (08:29)
[2019-06-09] MEDS: amLODIPine 10 MG Tablet PO (08:30)
[2019-06-09] MEDS: FLUoxetine 20 MG Capsule 40 MG PO (08:30)
[2019-06-09] MEDS: Famotidine 20 MG Tablet PO ×2 (08:30→21:47)
[2019-06-09] MEDS: Metoprolol Tartrate 100 MG Tablet PO ×2 (10:14→21:47)
[2019-06-09 11:40] LABS: Bedside Glucose 219 mg/dL (70-110)
[2019-06-09] MEDS: Insulin Lispro 100 UNIT/ML INSULN.PEN SC ×2 (12:07→21:48)
[2019-06-09 18:20] LABS: Bedside Glucose 122 mg/dL (70-110)
--- NOTE | 2019-06-09 18:20 | PN_ITS ---
Patient Problems: Active and Suspected Problems Pneumonia (Acute) Sepsis (Acute) Community acquired pneumonia (Acute) Acute respiratory insufficiency (Acute) Subjective: Day #6 antibiotics-Zosyn and vancomycin All events the past 24 hours have been reviewed. She tells me that she is feeling good today. Pulse ox at rest on a 5 L nasal cannula was 94%. She ambulated in the wills and maintained a saturation of 89% on a 6 L nasal cannula. She had mild shortness of breath. White blood cell count today is 15.7 and she continues on high-dose intravenous steroids today. Globin is stable at 10.7 and platelets are within normal limits. Creatinine is 0.8. Blood sugars are adequately controlled. Chest x-ray shows improvement in the multilobar infiltrates. Final on the sputum culture is normal respiratory yue. Objective: PHYSICAL EXAM: GENERAL: alert, oriented X 3, Cooperative, NAD, tells me she slept well until she was transferred to PCU at 12:30 at night. ORAL: moist mucosa, no mucosal lesions NECK: No JVD, supple, trachea midline LUNGS: better air exchange since steroids were started, symmetric chest expansion, no wheezing, few coarse crackles posteriorly in the bases that improved after a few deep breaths HEART: RRR, Normal S1 and S2, no rub, no gallop ABDOMEN: soft, NT, ND, BS present, no guarding with palpation EXTREMITIES: no edema, no cyanosis, no calf tenderness SKIN: No rashes, no breakdown NEUROLOGIC: no focal neurologic deficits PSYCH: appropriate, normal affect, pleasant - Physical Exam Vital Signs Temp Pulse Resp BP Pulse Ox 97.6 F L 52 L 18 111/48 L 94 06/09/19 14:14 06/09/19 15:00 06/09/19 14:14 06/09/19 14:14 06/09/19 14:26 Oxygen Flow Rate (L/min) [ 6 AMBULATION with Oxygen] Oxygen Flow Rate (L/min) [At 5 REST on Room Air] Oxygen Flow Rate (L/min) 5 Oxygen Delivery Method Nasal Cannula Weight: 283 lb 8.231 oz Body Mass Index (BMI) 50.5 Intake and Output for Last 24 Hours 06/07/19 06/08/19 06/09/19 23:59 23:59 23:59 Intake Total 2089.25 / 2329.25 2006 1168.25 / 1168.25 Output Total 2150 / 2150 650 / 1250 800 / 800 Balance -60.75 / 179.25 1357 / 957 368.25 / 368.25 Microbiology Past 72 Hours 06/04/19 02:28 Blood Culture - Final Blood Culture (Wb) - Right Hand No growth in 5 days. 06/04/19 03:15 Blood Culture - Final Blood Culture (Wb) - Right Forearm No growth in 5 days. 06/06/19 07:45 Gram Stain - Final Sputum, Expectorated/Coughed Respiratory Culture - Final Laboratory Tests Past 24 Hrs 06/09/19 06/09/19 05:45 05:45 WBC 15.7 H RBC 3.56 L Hgb 10.7 L Hct 33.6 L MCV 94.4 MCH 30.1 MCHC 31.8 L RDW Std Deviation 47.2 H RDW Coeff of Erica 13.7 Plt Count 410 MPV 9.6 Sodium 144 Potassium 4.0 Chloride 107 Carbon Dioxide 30.0 Anion Gap 7 BUN 22 H Creatinine 0.80 Estim Creat Clear Calc 51.49 Est GFR (MDRD) Af Amer 91 Est GFR (MDRD) Non-Af 75 BUN/Creatinine Ratio 27.4 H Glucose 150 H Calcium 8.4 L Magnesium 2.3 POC Glucose 06/09/19 06/09/19 06/08/19 11:31 06:53 21:57 POC Glucose 219 H 142 H 170 H Medical Necessity - Tobacco Use Smoking Status: Former smoker Assessment/Plan All Active Problems Pneumonia (Acute) Sepsis (Acute) Community acquired pneumonia (Acute) Acute respiratory insufficiency (Acute) Day #6 antibiotics-vancomycin and Zosyn currently The patient is a 68-year-old female admitted to the hospital with sepsis secondary to community-acquired pneumonia and acute respiratory failure with hypoxia requiring BiPAP to maintain appropriate oxygen saturations. Chest x- ray is improving. She was started on high-dose intravenous steroids on 06/07/2019 with significant improvement in air exchange today. Legionella and streptococcal antigens in the urine were negative. Respiratory panel was negative. Sputum culture had normal respiratory yue. MRSA nasal swab was negative. Impressions 1. Sepsis secondary to community-acquired pneumonia. Streptococcal and Legionella antibodies in the urine are negative. Respiratory panel is negative. Blood cultures have no growth after 48 hours. Sputum Gram stain shows 3+ white blood cells with rare gram-positive cocci. Culture is pending. MRSA nasal swab was negative. Transferred to the intensive care unit on 06/06/2019 for increased oxygen requirements and started on BiPAP. Continue vancomycin and Zosyn per Dr. Zheng's note. sputum culture grew nl resp yue. Transition to Prednisone today and will need a taper at [place]. 2. Acute respiratory failure with hypoxemia secondary to acute community- acquired pneumonia - required BIPAP to maintain the O2 saturations > 89% ....now only wearing BIPAP at night 3. Normochromic normocytic anemia of undetermined etiology. HGB is stable 4. 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 Follows with Dr. Melara and tells me that her chest x-ray in March showed no recurrence. 5. Thrombocytopenia/hypertension/hyperlipidemia/diabetes mellitus type 2/anxiety/depression/morbid obesity - chronic conditions. Continue OP medications. 6. JAJA - prescribed she had a sleep study showing she needed she needed BIPAP at ( has been on in the hospital) BUT, a machine was never ordered for her by Dr. Perez's office. She has CPAP at home but does not wear because it makes her feel as though she is suffocating. She is going to follow up with Dr. Zheng post [place]. 7. Enoxaparin for DVT prophylaxis Code Visit Inpatient E&M: 93349 Subs Hosp L2
[2019-06-09 21:20] LABS: Bedside Glucose 180 mg/dL (70-110)
[2019-06-09] MEDS: Atorvastatin Calcium 10 MG Tablet PO (21:47)
[2019-06-10] VITALS (18 sets, daily range): BP systolic 144–177; BP diastolic 57–79; PULSE 36–54; RESP 12–28; TEMP 36.6–36.8; O2SAT 6–99
[2019-06-10] MEDS: 0.9% NaCl Peripheral Flush Adult/Peds IV (06:25)
[2019-06-10 06:36] LABS: Bedside Glucose 119 mg/dL (70-110)
--- NOTE | 2019-06-10 07:46 | PCM.PN.PUL ---
Patient Problems: Active and Suspected Problems Pneumonia (Acute) Sepsis (Acute) Community acquired pneumonia (Acute) Acute respiratory insufficiency (Acute) Subjective: The patient was seen and examined at the bedside this morning. Events from the last 24 hours have been reviewed. The patient is currently afebrile, hemodynamically stable and maintaining appropriate oxygen saturations on 3 L/min via nasal cannula. The patient was able to ambulate yesterday and did note improvement in her exertional dyspnea. The patient's cough has also improved. Objective: The patient's most recent lab work, culture data and imaging studies have all been personally reviewed. Infectious work-up has been unrevealing to date. - Physical Exam General: Alert, Oriented x3, Cooperative, No apparent distress HEENT: Atraumatic, PERRLA, Normocephalic Oral: No Gingival or Mucosal Lesions/ Ulcerations Neck: Supple, No Nodes, Trachea Midline Lungs: No rhonchi, No wheeze, No rales, Diminished Cardiovascular: Regular rate, Regular Rhythm, Normal S1, Normal S2, No murmurs Abdomen: Bowel Sounds Present, Soft, Non Tender, Obese Extremities: No clubbing, No cyanosis, No edema Skin: No breakdown Musculoskeletal: No Tenderness to Palpation of Joints or Extremities, No Muscle Wasting Lymphatic: No Cervical, Supraclavicular, or Inguinal Adenopathy Neurological: Cranial nerves II-XII grossly intact, Neuro grossly intact Psych/Mental Status: Alert and oriented to time, place, person, mood and affect Vital Signs Temp Pulse Resp BP Pulse Ox 98.3 F 38 L 18 157/57 H 94 06/10/19 05:20 06/10/19 07:00 06/10/19 05:20 06/10/19 05:20 06/10/19 05:20 Oxygen Flow Rate (L/min) [ 6 AMBULATION with Oxygen] Oxygen Flow Rate (L/min) [At 5 REST on Room Air] Oxygen Flow Rate (L/min) 4 Oxygen Delivery Method Nasal Cannula Weight: 283 lb 15.286 oz Body Mass Index (BMI) 50.5 Intake and Output for Last 24 Hours 06/08/19 06/09/19 06/10/19 23:59 23:59 23:59 Intake Total 2006.25 / 1997. 830 / 830 Output Total 650 / 1250 1100 / 1100 100 / 100 Balance 1357 / 957 898.25 / 898.25 730 / 730 Microbiology Past 72 Hours 06/04/19 02:28 Blood Culture - Final Blood Culture (Wb) - Right Hand No growth in 5 days. 06/04/19 03:15 Blood Culture - Final Blood Culture (Wb) - Right Forearm No growth in 5 days. 06/06/19 07:45 Gram Stain - Final Sputum, Expectorated/Coughed Respiratory Culture - Final POC Glucose 06/10/19 06/09/19 06/09/19 06:27 21:15 17:01 POC Glucose 119 H 180 H 122 H 06/09/19 11:31 POC Glucose 219 H Clinical Impression(s) from Imaging Studies Chest X-Ray 06/04/19 02:40 IMPRESSION: Scattered new pulmonary opacities within the right greater than left lung concerning for underlying pneumonia. Follow-up to resolution recommended. Electronically Signed: Mauricio Christopher, at 3:00 EDT Tel , Service support , Chest X-Ray 06/06/19 01:14 IMPRESSION: Multifocal pulmonary opacities, worse on the right, are similar to previous. This could represent pneumonia or edema. Electronically Signed: Bari Hancock, at 1:42 EDT Tel , Service support , Chest X-Ray 06/06/19 07:16 IMPRESSION: There has been improvement in the right apical and right lower lobe infiltrates. Stable left lower lobe infiltrate. Electronically Signed: Joshua Barksdale, at 10:47 EDT , Service support , Chest X-Ray 06/09/19 07:05 IMPRESSION: Bilateral edema or infiltrates. Cardiac enlargement. Electronically Signed: Blair Bui MD at 10:34 EDT , Service support , Medical Necessity - Tobacco Use Smoking Status: Former smoker Assessment/Plan All Active Problems Pneumonia (Acute) Sepsis (Acute) Community acquired pneumonia (Acute) Acute respiratory insufficiency (Acute) RECOMMENDATIONS: 1. Continue to wean supplemental oxygen to maintain saturations at or above 90%. 2. Continue BiPAP therapy with naps and nightly. 3. Continue antimicrobials and steroids as ordered. 4. Continue bronchopulmonary hygiene and mobilize patient as tolerated. 5. Continue PRN bronchodilators. IMPRESSIONS: 1. Acute hypoxemic respiratory failure The patient has radiographic evidence of multifocal pneumonia in the setting of a new oxygen requirement. Continue current supportive measures with the use of noninvasive positive pressure ventilatory support along with antimicrobials, PRN bronchodilators and steroids. Wean supplemental oxygen as tolerated to maintain saturations at or above 90%. 2. 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 Continue outpatient Hydrea. 3. Obstructive sleep apnea The patient has a known history of obstructive sleep apnea but has only been intermittently compliant with the use of nocturnal Pap therapy. She did complete a re-titration study in 2018, for which it was recommended that she be on bilevel therapy. However, it does not appear that the patient ever had her orders updated, as she is currently still utilizing a CPAP machine. For now, the patient will be continued on BiPAP therapy while admitted to the hospital. Orders for a transition to BiPAP will be placed upon discharge with plans for outpatient follow-up. 4. Anemia/hypertension/hyperlipidemia/diabetes mellitus/anxiety/depression Complicates care, management, recovery and prognosis. Okay to continue home medications as indicated. This note was generated with [employer] dictation software. It may contain incorrect words, spelling, and punctuation that were not noted in checking the note before signing. Code Visit Inpatient E&M: 46645 Subs Hosp L2
[2019-06-10] MEDS: Hydroxyurea 500 MG Capsule PO (08:52)
[2019-06-10] MEDS: FLUoxetine 20 MG Capsule 40 MG PO (08:52)
[2019-06-10] MEDS: amLODIPine 10 MG Tablet PO (08:53)
[2019-06-10] MEDS: Enoxaparin 40 MG/0.4 ML Syringe SC (08:53)
[2019-06-10] MEDS: Famotidine 20 MG Tablet PO ×2 (08:53→22:14)
[2019-06-10] MEDS: predniSONE 20 MG Tablet 40 MG PO (08:56)
[2019-06-10 11:45] LABS: Bedside Glucose 167 mg/dL (70-110)
--- NOTE | 2019-06-10 15:15 | PN_ITS ---
Patient Problems: Active and Suspected Problems Pneumonia (Acute) Sepsis (Acute) Community acquired pneumonia (Acute) Acute respiratory insufficiency (Acute) Subjective: States she is breathing a little bit easier, and does not have any shortness of breath at rest. No acute events overnight Vitals/I&O's: Vital Signs Temp Pulse Resp BP Pulse Ox 97.8 F 52 L 18 153/64 H 92 06/10/19 14:37 06/10/19 14:37 06/10/19 14:37 06/10/19 14:37 06/10/19 14:37 Oxygen Flow Rate (L/min) [ 89 AMBULATION with Oxygen] Oxygen Flow Rate (L/min) [At 4 REST on Room Air] Oxygen Flow Rate (L/min) 4 Oxygen Delivery Method Nasal Cannula Weight: 283 lb 15.286 oz Body Mass Index (BMI) 50.5 Intake and Output for Last 24 Hours 06/08/19 06/09/19 06/10/19 23:59 23:59 23:59 Intake Total 2006.25 / 1997. 880 / 880 Output Total 650 / 1250 1100 / 1100 100 / 100 Balance 1357 / 957 898.25 / 898.25 780 / 780 General: Alert, Oriented x3, Cooperative, No apparent distress HEENT: Atraumatic, PERRLA, EOMI, Normocephalic Oral: Moist Mucosa Neck: Supple, No JVD Lungs: Normal air movement, No rhonchi, No wheeze, No rales Cardiovascular: Regular rate, Regular Rhythm, Normal S1, Normal S2, No murmurs Abdomen: Soft, Non Tender, Non-Distended, No Hepato-splenomegaly Extremities: No edema, Capillary Refill Less than 3 Seconds Skin: No rashes, No breakdown Neurological: Neuro grossly intact, Sensory exam intact to light touch and pain Psych/Mental Status: Normal Affect, Appropriate Microbiology Past 72 Hours 06/04/19 02:28 Blood Culture (Wb) - Right Hand Blood Culture - Final No growth in 5 days. 06/04/19 03:15 Blood Culture (Wb) - Right Forearm Blood Culture - Final No growth in 5 days. 06/06/19 07:45 Sputum, Expectorated/Coughed Gram Stain - Final 06/06/19 07:45 Sputum, Expectorated/Coughed Respiratory Culture - Final Laboratory Results 06/09/19 17:01: POC Glucose 122 H 06/09/19 21:15: POC Glucose 180 H 06/10/19 06:27: POC Glucose 119 H 06/10/19 11:36: POC Glucose 167 H Current Medications Acetaminophen (Tylenol) 650 mg PO Q6H PRN PRN PRN Reason: Mild Pain (1-3)/Temp > 100.7 F Albuterol/Ipratropium (Duoneb) 3 ml INHALATION Q6H.RT PRN PRN Reason: SHORTNESS OF BREATH Amlodipine Besylate (Norvasc) 10 mg PO DAILY [facility] Last Admin: 06/10/19 08:53 Dose: 10 mg Documented by: Atorvastatin Calcium (Lipitor) 10 mg PO QHS [facility] Last Admin: 06/09/19 21:47 Dose: 10 mg Documented by: Dextrose (D50w Syringe) 0 gm IV X1 PRN; Protocol PRN Reason: Hypoglycemia Enoxaparin Sodium (Lovenox) 40 mg SC DAILY@1000 [facility] Last Admin: 06/10/19 08:53 Dose: 40 mg Documented by: Famotidine (Pepcid) 20 mg PO BID [facility] Last Admin: 06/10/19 08:53 Dose: 20 mg Documented by: Fluoxetine HCl (Prozac) 40 mg PO DAILY [facility] Last Admin: 06/10/19 08:52 Dose: 40 mg Documented by: Glucagon () 1 mg IM .X1 PRN PRN Reason: Hypoglycemia Hydralazine HCl (Apresoline Iv) 10 mg IV Q4H PRN PRN PRN Reason: SBP > 150/85 Hydroxyurea (Hydrea) 500 mg PO Q2D@0800 [facility] Last Admin: 06/10/19 08:52 Dose: 500 mg Documented by: Sodium Chloride () 250 mls @ 15 mls/hr IV .[id number] PRN PRN Reason: SALINE FLUSH Last Infusion: 06/09/19 14:28 Dose: 0 mls/hr Documented by: Piperacillin Sod/Tazobactam (Sod 3.375 gm/ Sodium Chloride) 50 mls @ 12.5 mls/hr IV Q8 [facility] Last Infusion: 06/10/19 10:45 Dose: Infused Documented by: Vancomycin IV Pharmacy to Dose (1 ea/ Sodium Chloride) 500 mls @ 250 mls/hr IV X1 PRN; Protocol PRN Reason: Rx to Dose Vancomycin HCl 2,000 mg/ (Sodium Chloride) 540 mls @ 250 mls/hr IV Q12H [facility] Last Admin: 06/10/19 14:30 Dose: 250 mls/hr Documented by: Insulin Human Lispro (Humalog Kwikpen (Bkc)) 0 unit SC ACHS [facility]; Protocol Last Admin: 06/10/19 11:41 Dose: Not Given Documented by: Metformin [facility] ([facility]) [facility] Metoprolol Tartrate (Lopressor (Beta Mickie)) 100 mg PO BID [facility] Last Admin: 06/10/19 11:27 Dose: Not Given Documented by: Ondansetron HCl (Zofran) 4 mg IV Q8H PRN PRN PRN Reason: NAUSEA/VOMITING Prednisone () 40 mg PO DAILY@0800 [facility] Last Admin: 06/10/19 08:56 Dose: 40 mg Documented by: Sodium Chloride () 10 - 40 ml IV UD PRN PRN Reason: SALINE FLUSH Last Admin: 06/10/19 06:25 Dose: 10 ml Documented by: Throat Lozenges (Cepacol Sore Throat Lozenge) 2 lozenge MUCOUS MEM Q2H PRN PRN PRN Reason: SORE THROAT Medical Necessity - Tobacco Use Smoking Status: Former smoker Assessment/Plan All Active Problems Pneumonia (Acute) Sepsis (Acute) Community acquired pneumonia (Acute) Acute respiratory insufficiency (Acute) 1. Sepsis and acute hypoxic respiratory failure secondary to community-acquired pneumonia from a gram-positive organism -Strep and Legionella urine antigens are negative -Continue with Zosyn and vancomycin, will likely be able to discontinue these on discharge and will not need any antibiotics going home -Continue with BiPAP at night -Continue with prednisone daily, will continue 40 mg daily for at least 7 days after discharge 2. HTN/HLD -Blood pressures been stable -Continue with her home medications 3. DM 2/morbid obesity -She is currently on metformin here in the hospital, will monitor renal function -Sliding scale insulin as needed, continue with Accu-Cheks -Cale lifestyle modifications for her BMI of 52.8 4. Anxiety/depression -Stable -Tinea with Prozac 5. Osteoporosis -She will be able to restart her alendronate on discharge, she does take it once a week so she will be due next Tuesday DVT: Lovenox Code Visit Inpatient E&M: 30995 Subs Hosp L2
[2019-06-10] MEDS: metFORMIN (XR) 500 MG Tablet PO (16:33)
[2019-06-10] MEDS: Insulin Lispro 100 UNIT/ML INSULN.PEN SC ×2 (16:33→22:15)
[2019-06-10 16:41] LABS: Bedside Glucose 199 mg/dL (70-110)
[2019-06-10 22:06] LABS: Bedside Glucose 161 mg/dL (70-110)
[2019-06-10] MEDS: Atorvastatin Calcium 10 MG Tablet PO (22:15)
[2019-06-10] MEDS: hydrALAZINE 20 MG/ML Vial 10 MG IV (22:18)
[2019-06-11] VITALS (16 sets, daily range): BP systolic 131–159; BP diastolic 54–71; PULSE 40–63; RESP 12–26; TEMP 36.6–37; O2SAT 94–97
[2019-06-11 06:41] LABS: Bedside Glucose 78 mg/dL (70-110)
[2019-06-11] MEDS: metFORMIN (XR) 500 MG Tablet PO ×2 (09:02→16:58)
[2019-06-11] MEDS: predniSONE 20 MG Tablet 40 MG PO (09:02)
[2019-06-11] MEDS: FLUoxetine 20 MG Capsule 40 MG PO (09:02)
[2019-06-11] MEDS: Enoxaparin 40 MG/0.4 ML Syringe SC (09:03)
[2019-06-11] MEDS: Famotidine 20 MG Tablet PO ×2 (09:03→21:34)
--- NOTE | 2019-06-11 09:49 | PN_ITS ---
Patient Problems: Active and Suspected Problems Pneumonia (Acute) Sepsis (Acute) Community acquired pneumonia (Acute) Acute respiratory insufficiency (Acute) Subjective: Thinks that she is breathing a little bit easier compared to yesterday, still needing BiPAP at night and 4 L of oxygen via nasal cannula during the day. Vitals/I&O's: Vital Signs Temp Pulse Resp BP Pulse Ox 97.8 F 52 L 16 142/54 H 94 06/11/19 09:07 06/11/19 09:07 06/11/19 09:07 06/11/19 09:07 06/11/19 09:07 Oxygen Flow Rate (L/min) [ 89 AMBULATION with Oxygen] Oxygen Flow Rate (L/min) [At 4 REST on Room Air] Oxygen Flow Rate (L/min) 4 Oxygen Delivery Method Nasal Cannula Weight: 283 lb 8.231 oz Body Mass Index (BMI) 50.5 Intake and Output for Last 24 Hours 06/09/19 06/10/19 06/11/19 23:59 23:59 23:59 Intake Total 1997.25 / 1710 / 1710 830 / 830 Output Total 1100 / 1100 900 / 900 100 / 100 Balance 898.25 / 898.25 810 / 810 730 / 730 General: Alert, Oriented x3, Cooperative, No apparent distress HEENT: Atraumatic, PERRLA, EOMI, Normocephalic Oral: Moist Mucosa Neck: Supple, No JVD Lungs: Normal air movement, No rhonchi, No wheeze, No rales Cardiovascular: Regular rate, Regular Rhythm, Normal S1, Normal S2, No murmurs Abdomen: Soft, Non Tender, Non-Distended, No Hepato-splenomegaly Extremities: No edema, Capillary Refill Less than 3 Seconds Skin: No rashes, No breakdown Neurological: Neuro grossly intact, Sensory exam intact to light touch and pain Psych/Mental Status: Normal Affect, Appropriate Microbiology Past 72 Hours 06/04/19 02:28 Blood Culture (Wb) - Right Hand Blood Culture - Final No growth in 5 days. 06/04/19 03:15 Blood Culture (Wb) - Right Forearm Blood Culture - Final No growth in 5 days. 06/06/19 07:45 Sputum, Expectorated/Coughed Gram Stain - Final 06/06/19 07:45 Sputum, Expectorated/Coughed Respiratory Culture - Final Laboratory Results 06/10/19 11:36: POC Glucose 167 H 06/10/19 16:31: POC Glucose 199 H 06/10/19 21:59: POC Glucose 161 H 06/11/19 06:28: POC Glucose 78 Current Medications Acetaminophen (Tylenol) 650 mg PO Q6H PRN PRN PRN Reason: Mild Pain (1-3)/Temp > 100.7 F Albuterol/Ipratropium (Duoneb) 3 ml INHALATION Q6H.RT PRN PRN Reason: SHORTNESS OF BREATH Amlodipine Besylate (Norvasc) 10 mg PO DAILY [facility] Last Admin: 06/10/19 08:53 Dose: 10 mg Documented by: Atorvastatin Calcium (Lipitor) 10 mg PO QHS [facility] Last Admin: 06/10/19 22:15 Dose: 10 mg Documented by: Dextrose (D50w Syringe) 0 gm IV X1 PRN; Protocol PRN Reason: Hypoglycemia Enoxaparin Sodium (Lovenox) 40 mg SC DAILY@1000 [facility] [place] Last Admin: 06/11/19 09:03 Dose: 40 mg Documented by: Famotidine (Pepcid) 20 mg PO BID [facility] [place] Last Admin: 06/11/19 09:03 Dose: 20 mg Documented by: Fluoxetine HCl (Prozac) 40 mg PO DAILY [facility] [place] Last Admin: 06/11/19 09:02 Dose: 40 mg Documented by: Glucagon () 1 mg IM .X1 PRN PRN Reason: Hypoglycemia Hydralazine HCl (Apresoline Iv) 10 mg IV Q4H PRN PRN PRN Reason: SBP > 150/85 Last Admin: 06/10/19 22:18 Dose: 10 mg Documented by: Hydroxyurea (Hydrea) 500 mg PO Q2D@0800 [facility] Last Admin: 06/10/19 08:52 Dose: 500 mg Documented by: Sodium Chloride () 250 mls @ 15 mls/hr IV .[id number] PRN PRN Reason: SALINE FLUSH Last Infusion: 06/09/19 14:28 Dose: 0 mls/hr Documented by: Piperacillin Sod/Tazobactam (Sod 3.375 gm/ Sodium Chloride) 50 mls @ 12.5 mls/hr IV Q8 [facility] [place] Last Admin: 06/11/19 06:19 Dose: 12.5 mls/hr Documented by: Vancomycin IV Pharmacy to Dose (1 ea/ Sodium Chloride) 500 mls @ 250 mls/hr IV X1 PRN; Protocol PRN Reason: Rx to Dose Vancomycin HCl 2,000 mg/ (Sodium Chloride) 540 mls @ 250 mls/hr IV Q12H [facility] [place] Last Infusion: 06/11/19 05:24 Dose: Infused Documented by: Insulin Human Lispro (Humalog Kwikpen (Bkc)) 0 unit SC ACHS [facility]; Protocol Last Admin: 06/11/19 06:29 Dose: Not Given Documented by: [facility] Last Admin: 06/11/19 09:02 Dose: 500 mg Documented by: Metoprolol Tartrate (Lopressor (Beta Mickie)) 100 mg PO BID [facility] Last Admin: 06/10/19 22:06 Dose: Not Given Documented by: Ondansetron HCl (Zofran) 4 mg IV Q8H PRN PRN PRN Reason: NAUSEA/VOMITING Prednisone () 40 mg PO DAILY@0800 [facility] Last Admin: 06/11/19 09:02 Dose: 40 mg Documented by: Sodium Chloride () 10 - 40 ml IV UD PRN PRN Reason: SALINE FLUSH Last Admin: 06/10/19 06:25 Dose: 10 ml Documented by: Throat Lozenges (Cepacol Sore Throat Lozenge) 2 lozenge MUCOUS MEM Q2H PRN PRN PRN Reason: SORE THROAT Medical Necessity - Tobacco Use Smoking Status: Former smoker Assessment/Plan All Active Problems Pneumonia (Acute) Sepsis (Acute) Community acquired pneumonia (Acute) Acute respiratory insufficiency (Acute) 1. Sepsis and acute hypoxic respiratory failure secondary to community-acquired pneumonia from a gram-positive organism -Strep and Legionella urine antigens are negative -Continue with Zosyn and vancomycin, will DC tomorrow -Continue with BiPAP at night -Continue with prednisone daily, will continue 40 mg daily for at least 7 days after discharge -We will obtain another ambulatory pulse ox today, yesterday she required 6 L to maintain an oxygen sat of 89% 2. HTN/HLD -Blood pressures have been stable -Continue with her home medications 3. DM 2/morbid obesity -She is currently on metformin here in the hospital, will monitor renal function -Sliding scale insulin as needed, continue with Accu-Cheks -Discussed lifestyle modifications for her BMI of 52.8 4. Anxiety/depression -Stable -Continue with Prozac 5. Osteoporosis -She will be able to restart her alendronate on discharge, she does take it once a week so she will be due next Tuesday DVT: Lovenox Code Visit Inpatient E&M: 16543 Subs Hosp L2
[2019-06-11] MEDS: amLODIPine 10 MG Tablet PO (09:58)
[2019-06-11] MEDS: 0.9% NaCl IVPB Med Flush (250 mL) 15 ML IV (10:20)
[2019-06-11] MEDS: Insulin Lispro 100 UNIT/ML INSULN.PEN SC ×2 (12:57→16:59)
[2019-06-11 13:01] LABS: Bedside Glucose 193 mg/dL (70-110)
--- NOTE | 2019-06-11 14:16 | PN_ITS ---
Patient Problems: Active and Suspected Problems Pneumonia (Acute) Sepsis (Acute) Community acquired pneumonia (Acute) Acute respiratory insufficiency (Acute) Subjective: Patient reporting mild subjective improvement compared to yesterday. Still requiring BiPAP at night and 4 L nasal cannula during the day to maintain appropriate saturations. Patient denies any abdominal pain despite persistent cough. - Physical Exam General: Alert, Oriented x3, Cooperative, No apparent distress, - - Speaking in full sentences. HEENT: Atraumatic, PERRLA, EOMI, Normocephalic Oral: Moist Mucosa, No Gingival or Mucosal Lesions/ Ulcerations Neck: Supple, No JVD, No Nodes, Trachea Midline Lungs: Normal air movement, No rhonchi, No wheeze, No rales Cardiovascular: Regular rate, Regular Rhythm, Normal S1, Normal S2, No murmurs, No rub noted, No Gallop Abdomen: Bowel Sounds Present, Soft, Non Tender, Non-Distended, Obese Extremities: No clubbing, No cyanosis, No edema, Capillary Refill Less than 3 Seconds Skin: No rashes, No breakdown Musculoskeletal: No Tenderness to Palpation of Joints or Extremities Lymphatic: No Cervical, Supraclavicular, or Inguinal Adenopathy Neurological: Cranial nerves II-XII grossly intact, Neuro grossly intact, Motor Exam 5/5 strength throughout Psych/Mental Status: Normal Affect, Appropriate Vital Signs Temp Pulse Resp BP Pulse Ox 36.6 C 54 L 16 142/54 H 94 06/11/19 09:07 06/11/19 11:24 06/11/19 09:07 06/11/19 09:52 06/11/19 09:07 Oxygen Flow Rate (L/min) [ 89 AMBULATION with Oxygen] Oxygen Flow Rate (L/min) [At 4 REST on Room Air] Oxygen Flow Rate (L/min) 4 Oxygen Delivery Method Nasal Cannula Weight: 128.6 kg Body Mass Index (BMI) 50.5 Intake and Output for Last 24 Hours 06/09/19 06/10/19 06/11/19 23:59 23:59 23:59 Intake Total 1997.25 / 1997. 1710 / 1710 1360 / 1360 Output Total 1100 / 1100 900 / 900 500 / 500 Balance 898.25 / 898.25 810 / 810 860 / 860 Microbiology Past 72 Hours 06/04/19 02:28 Blood Culture - Final Blood Culture (Wb) - Right Hand No growth in 5 days. 06/04/19 03:15 Blood Culture - Final Blood Culture (Wb) - Right Forearm No growth in 5 days. 06/06/19 07:45 Gram Stain - Final Sputum, Expectorated/Coughed Respiratory Culture - Final POC Glucose 06/11/19 06/11/19 06/10/19 12:52 06:28 21:59 POC Glucose 193 H 78 161 H 06/10/19 16:31 POC Glucose 199 H Medical Necessity - Tobacco Use Smoking Status: Former smoker Assessment/Plan All Active Problems Pneumonia (Acute) Sepsis (Acute) Community acquired pneumonia (Acute) Acute respiratory insufficiency (Acute) RECOMMENDATIONS: 1. Continue to wean supplemental oxygen to maintain saturations at or above 90%. 2. Continue BiPAP therapy with naps and nightly. 3. Continue antimicrobials and steroids as ordered. Likely wean steroids over the next 12 to 14 days 4. Continue bronchopulmonary hygiene and mobilize patient as tolerated. 5. Continue PRN bronchodilators. IMPRESSIONS: 1. Acute hypoxemic respiratory failure The patient has radiographic evidence of multifocal pneumonia in the setting of a new oxygen requirement. Continue current supportive measures with the use of noninvasive positive pressure ventilatory support along with antimicrobials, PRN bronchodilators and steroids. Wean supplemental oxygen as tolerated to maintain saturations at or above 90%. Unfortunately, infectious work-up has been unremarkable to date. Patient should likely be treated with 7 to 10 days of antibiotics. No fever reported overnight and blood pressure continues to improve. 2. 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 Continue outpatient Hydrea . 3. Obstructive sleep apnea The patient has a known history of obstructive sleep apnea but has only been intermittently compliant with the use of nocturnal Pap therapy. She did complete a re-titration study in 2018, for which it was recommended that she be on bilevel therapy. However, it does not appear that the patient ever had her orders updated, as she is currently still utilizing a CPAP machine. For now, the patient will be continued on BiPAP therapy while admitted to the hospital. Orders for a transition to BiPAP will be placed upon discharge with plans for outpatient follow-up. It appears to be benefiting from BiPAP as an inpatient. 4. Anemia/hypertension/hyperlipidemia/diabetes mellitus/anxiety/depression Complicates care, management, recovery and prognosis. Okay to continue home medications as indicated. Code Visit Inpatient E&M: 42180 Subs Hosp L2
[2019-06-11 17:05] LABS: Bedside Glucose 218 mg/dL (70-110)
[2019-06-11] MEDS: 0.9% NaCl Peripheral Flush Adult/Peds IV (17:51)
[2019-06-11] MEDS: Atorvastatin Calcium 10 MG Tablet PO (21:34)
[2019-06-11 22:21] LABS: Bedside Glucose 149 mg/dL (70-110)
[2019-06-12] VITALS (12 sets, daily range): BP systolic 129–137; BP diastolic 64–72; PULSE 56–73; RESP 12–18; TEMP 36.6–37.1; O2SAT 84–98
[2019-06-12 03:57] LABS: Vancomycin, Trough Level 34.5 ug/mL (5.0-15.0)
--- NOTE | 2019-06-12 05:02 | NURSING ---
Mikhail from Pharmacy called and said patient's Vancomycin level is high (34.5), and to stop the IV Vancomycin that is running. Notified Jose Manuel, patient's primary RN.
--- NOTE | 2019-06-12 05:04 | PCM.RX.CS ---
Consult Pharmacy has been consulted to manage selected antiobiotic: Vancomycin Type of Consult: Follow-up Suspected Infection: Sepsis Labs: Sodium 144 mmol/L (136-145) 06/09/19 05:45 Potassium 4.0 mmol/L (3.5-5.1) 06/09/19 05:45 Chloride 107 mmol/L (98-107) 06/09/19 05:45 Carbon Dioxide 30.0 mmol/L (21.0-32.0) 06/09/19 05:45 Anion Gap 7 (5-15) 06/09/19 05:45 BUN 22 mg/dL (7-18) H 06/09/19 05:45 Creatinine 0.80 mg/dL (0.55-1.02) 06/09/19 05:45 Est GFR (MDRD) Af Amer 91 mL/min (>60) 06/09/19 05:45 Est GFR (MDRD) Non-Af 75 mL/min (>60) 06/09/19 05:45 BUN/Creatinine Ratio 27.4 RATIO (10-20) H 06/09/19 05:45 Glucose 150 mg/dL (74-106) H 06/09/19 05:45 Vancomycin Trough 34.5 ug/mL (5.0-15.0) H 06/12/19 02:47 Microbiology: Microbiology 06/04/19 02:28 Blood Culture (Wb) - Right Hand Blood Culture - Final No growth in 5 days. 06/04/19 03:15 Blood Culture (Wb) - Right Forearm Blood Culture - Final No growth in 5 days. 06/06/19 07:45 Sputum, Expectorated/Coughed Gram Stain - Final 06/06/19 07:45 Sputum, Expectorated/Coughed Respiratory Culture - Final 06/04/19 13:05 Urine Catheter - [place] Streptococcus pneumoniae Antigen (M - Final 06/04/19 13:05 Urine Catheter - [place] Legionella Antigen - Final 06/04/19 07:10 Mucosa - Nose Respiratory Panel (PCR) - Final Goal Trough: 15-20 mcg/mL Pharmacy Plan for Drug Dosing: Pharmacy Service will continue to monitor and adjust dosing as required. TROUGH 34.5 HOLD VANCO AND REDRAW LEVEL 07/14 @ 0230 AND REEVALUATE Follow-Up Labs: Trough Vancomycin Labs to be done on [date and time ordered]: 06/13 @ 1073
[2019-06-12] MEDS: 0.9% NaCl Peripheral Flush Adult/Peds IV (05:34)
[2019-06-12 06:55] LABS: Bedside Glucose 89 mg/dL (70-110)
[2019-06-12] MEDS: metFORMIN (XR) 500 MG Tablet PO (08:48)
[2019-06-12] MEDS: Hydroxyurea 500 MG Capsule PO (08:48)
[2019-06-12] MEDS: predniSONE 20 MG Tablet 40 MG PO (08:48)
--- NOTE | 2019-06-12 08:52 | PCM.PN.PUL ---
Patient Problems: Active and Suspected Problems Pneumonia (Acute) Sepsis (Acute) Community acquired pneumonia (Acute) Acute respiratory insufficiency (Acute) Subjective: Patient feels subjectively improved compared to previous. Patient is still requiring supplemental oxygen, but states that her dyspnea on exertion is much improved. Patient does have a cough productive of clear to white sputum. No chest pain is reported. Patient continues to have some lower extremity edema, but states that elevation does help. - Physical Exam General: Alert, Oriented x3, Cooperative, No apparent distress, Well developed, Well nourished, - - Morbidly obese. HEENT: Atraumatic, PERRLA, EOMI, Normocephalic, - - No scleral icterus or injection noted Oral: Moist Mucosa, No Gingival or Mucosal Lesions/ Ulcerations Neck: Supple, No JVD, No Nodes, Trachea Midline Lungs: No rhonchi, No wheeze, No rales, Diminished, - - Symmetric expansion. Cardiovascular: Normal S1, Normal S2, No murmurs, Bradycardic, No rub noted, No Gallop Abdomen: Bowel Sounds Present, Soft, Non Tender, Non-Distended, Obese Extremities: No clubbing, No cyanosis, Capillary Refill Less than 3 Seconds, Edema - Trace lower extremity Skin: No rashes, No breakdown Musculoskeletal: No Tenderness to Palpation of Joints or Extremities Lymphatic: No Cervical, Supraclavicular, or Inguinal Adenopathy Neurological: Cranial nerves II-XII grossly intact, Neuro grossly intact, Motor Exam 5/5 strength throughout Psych/Mental Status: Alert and oriented to time, place, person, mood and affect Vital Signs Temp Pulse Resp BP Pulse Ox 37.1 C 59 L 18 137/66 H 96 06/12/19 03:25 06/12/19 07:16 06/12/19 03:25 06/12/19 03:25 06/12/19 08:40 Oxygen Flow Rate (L/min) [ 4 AMBULATION with Oxygen] Oxygen Flow Rate (L/min) [At 3 REST on Room Air] Oxygen Flow Rate (L/min) 3 Oxygen Delivery Method Nasal Cannula Weight: 124.1 kg Body Mass Index (BMI) 50.5 Intake and Output for Last 24 Hours 06/10/19 06/11/19 06/12/19 23:59 23:59 23:59 Intake Total 1710 / 1710 2570 / 2570 722.5 / 722.5 Output Total 900 / 900 2200 / 2200 450 / 450 Balance 810 / 810 370 / 370 272.5 / 272.5 Microbiology Past 72 Hours 06/04/19 02:28 Blood Culture - Final Blood Culture (Wb) - Right Hand No growth in 5 days. 06/04/19 03:15 Blood Culture - Final Blood Culture (Wb) - Right Forearm No growth in 5 days. Laboratory Tests Past 24 Hrs 06/12/19 02:47 Vancomycin Trough 34.5 H POC Glucose 06/12/19 06/11/19 06/11/19 06:40 21:30 16:49 POC Glucose 89 149 H 218 H 06/11/19 12:52 POC Glucose 193 H Medical Necessity - Tobacco Use Smoking Status: Former smoker Assessment/Plan All Active Problems Pneumonia (Acute) Sepsis (Acute) Community acquired pneumonia (Acute) Acute respiratory insufficiency (Acute) RECOMMENDATIONS: 1. Continue to wean supplemental oxygen to maintain saturations at or above 90%. 2. Continue BiPAP therapy with naps and nightly. Patient should be discharged with BiPAP therapy using previous sleep study 3. Continue antimicrobials and steroids as ordered. Likely wean steroids over the next 12 to 14 days 4. Continue bronchopulmonary hygiene and mobilize patient as tolerated. 5. Continue PRN bronchodilators. 6. Okay to discharge patient from my perspective if tolerates ambulation on 6 L or less 7. Follow-up with nurse practitioner in 2 weeks in our office. Patient should be discharged on BiPAP per repeat titration completed in 2018 IMPRESSIONS: 1. Acute hypoxemic respiratory failure The patient has radiographic evidence of multifocal pneumonia in the setting of a new oxygen requirement. Continue current supportive measures with the use of noninvasive positive pressure ventilatory support along with antimicrobials, PRN bronchodilators and steroids. Wean supplemental oxygen as tolerated to maintain saturations at or above 90%. Unfortunately, infectious work-up has been unremarkable to date. Patient likely has received sufficient antibiotic therapy from my perspective if able to be discharged. If patient is able to tolerate 6 L or less with ambulation, patient could be discharged from a pulmonary perspective. Patient should resume BiPAP per 2018 repeat titration study. Patient only has CPAP at home at this time. Patient can follow-up with nurse practitioner 2 weeks after discharge. 2. 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 Continue outpatient Hydrea. 3. Obstructive sleep apnea The patient has a known history of obstructive sleep apnea but has only been intermittently compliant with the use of nocturnal Pap therapy. She did complete a re-titration study in 2018, for which it was recommended that she be on bilevel therapy. However, it does not appear that the patient ever had her orders updated, as she is currently still utilizing a CPAP machine. For now, the patient will be continued on BiPAP therapy while admitted to the hospital. Orders for a transition to BiPAP will be placed upon discharge with plans for outpatient follow-up. It appears to be benefiting from BiPAP as an inpatient. 4. Anemia/hypertension/hyperlipidemia/diabetes mellitus/anxiety/depression Complicates care, management, recovery and prognosis. Okay to continue home medications as indicated. Code Visit Inpatient E&M: 61915 Subs Hosp L2
[2019-06-12] MEDS: Famotidine 20 MG Tablet PO (10:51)
[2019-06-12] MEDS: FLUoxetine 20 MG Capsule 40 MG PO (10:51)
[2019-06-12] MEDS: amLODIPine 10 MG Tablet PO (10:51)
[2019-06-12] MEDS: Metoprolol Tartrate 100 MG Tablet PO (11:02)
--- NOTE | 2019-06-12 11:06 | PCM.DC ---
- Discharge Diagnoses Current Active Problems: Current Active and Chronic Problems Pneumonia (Acute) Sepsis (Acute) Community acquired pneumonia (Acute) Acute respiratory insufficiency (Acute) You will use the following diet at home:: Cardiac Your food should be the consistency of: Regular Your liquids should be the consistency of: Regular/Thin Discharge Activity: Return to Normal Activity Call your doctor if you observe: Fever of 101 or Higher, Shortness of breath, Dizziness, Fainting spells, Swelling in the ankles, Chest pain, Increased palpitations (irregular heartbeat) Allergies/Adverse Reactions: Allergies No Known Allergies Allergy (Verified 02/22/18 14:27) Medications to take at Discharge Alendronate Sodium 70 mg PO NICKERSON 02/22/18 Amlodipine [Norvasc] 10 mg PO DAILY 02/22/18 Aspirin 81 mg PO DAILY 02/22/18 Fluoxetine HCl 40 mg PO DAILY 02/22/18 Hydroxyurea [Hydrea] 500 mg PO QODAY 02/22/18 Hydroxyzine HCl 25 mg PO QHS 02/22/18 Metformin HCl [Metformin HCl ER] 500 mg PO BID 02/22/18 Metoprolol Tartrate [Lopressor (beta padmaja)] 100 mg PO DAILY 02/22/18 Simvastatin 20 mg PO QHS 02/22/18 Lisinopril [Zestril] 20 mg PO DAILY 06/04/19 Ipratropium/Albuterol Sulfate [Duoneb] 3 ml INHALATION Q6H.RT PRN #30 ampul.neb 06/12/19 predniSONE tablet 40 mg PO DAILY@0800 #14 tab 06/12/19 The following prescriptions were given: Ipratropium/Albuterol Sulfate [Duoneb] 3 ml INHALATION Q6H.RT PRN #30 ampul.neb PRN Reason: SHORTNESS OF BREATH Transmission Status: Pending to [facility] predniSONE tablet 40 mg PO DAILY@0800 #14 tab Transmission Status: Pending to [facility] Primary Care Physician: Les Valenzuela MD [Primary Care Provider] - Please follow up with your Primary Care Physician in: 3-5 days Test Results: Test results from this visit will be discussed in further detail at your follow-up appointment, if applicable. Please Follow Up With: Rickie Allen MD When: 1-2 weeks
[2019-06-12] MEDS: Insulin Lispro 100 UNIT/ML INSULN.PEN SC (12:05)
[2019-06-12 12:10] LABS: Bedside Glucose 271 mg/dL (70-110)
--- NOTE | 2019-06-12 13:22 | CASEMGMT ---
Per Ita RN, pt does qualify for home oxygen at this time. Pt had stated [employer] as preference previously and order faxed to [facility] at this time. Call to Keshav at [facility] to notify that pt is ready for discharge today, voices understanding. This RN CM received a message that Thi in the sleep lab wanted to do bipap training with pt prior to or at discharge. Message left with Thi to call this RN CM back when able. Charles LOMBARDO CM
--- NOTE | 2019-06-12 13:57 | PCM.DC.SUM ---
Discharge Date and Diagnosis - Problem List Patient Problems: Active and Suspected Problems Pneumonia (Acute) Sepsis (Acute) Community acquired pneumonia (Acute) Acute respiratory insufficiency (Acute) Date of Admission: 06/04/19 Date of Discharge: 06/12/19 - Primary Discharge Diagnosis Active and Suspected Problems Pneumonia (Acute) Sepsis (Acute) Community acquired pneumonia (Acute) Acute respiratory insufficiency (Acute) - Secondary Discharge Diagnosis Chronic Problems Hypertension (Chronic) History of lung cancer (Chronic) Status post left lower lobe pneumectomy. History of stroke (Chronic) Chronic thrombocytopenia (Chronic) Hyperlipidemia (Chronic) Anxiety (Chronic) Depression (Chronic) Type 2 diabetes mellitus (Chronic) Hospital Course and Treatment Imaging Results: CXR: IMPRESSION: Scattered new pulmonary opacities within the right greater than left lung concerning for underlying pneumonia. Follow-up to resolution recommended. Consults: Pulmonology Operations: None Summary of Care Provided: Per HPI: The patient is a 68 year old F with a significant history of thrombocytopenia; hypertension; hyperlipidemia; diabetes mellitus; depression and anxiety; carcinoid tumor of the lung status post surgery who presented with 1 week history of progressively worsening shortness of breath. Associated with her symptom is nonproductive cough. She has shortness of breath at rest which increases markedly with exertion. At the emergency department her oxygen saturation was noted to be 83% on room air. ABG was not remarkable. Patient has an extensive cough to the point that she has lost her voice. She has tried Tussin DM and Mucinex DM and all has not helped with her cough. Since October of this year (2018) patient she has been having a chronic cough. Outpatient test rule out asthma. Patient was treated for GERD but her cough persisted. And in regard to her carcinoid tumor of the lung she was told that she does not have any carcinoid tumor at this time. In regard to a history of carcinoid tumor she followed up with Dr. Melara who had previously treated her for thrombocytopenia. At the emergency department she was found to have tachypnea; and leukocytosis. A chest x-ray was concerning for multifocal pneumonia and she was started on Levaquin. Hospital Course: 1. Sepsis and acute hypoxic respiratory failure secondary to community-acquired pneumonia from gram-positive [id number] female with a history of thrombus cytopenia, hypertension, hyperlipidemia, DM 2 and a carcinoid tumor of the lung that was resected, presented with one-week history of progressively worsening shortness of breath. Initially she was started on Levaquin however she decompensated and required admission to the ICU for noninvasive ventilatory management. Her antibiotics were broadened for Zosyn and vancomycin, and she had blood cultures and sputum cultures obtained. All of her blood work was negative for any infectious etiology and her strep and Legionella urine antigens were also negative. She was transferred out of the ICU fairly quickly and was continued on vancomycin and Zosyn for 7 days. She has been afebrile and 3 days prior to discharge was started on steroids to help with her respiratory status. She has been on around 2 L nasal cannula on the day of discharge at rest, and needed oxygen on discharge for ambulation. She did have an ambulatory pulse ox where she was 84% on room air. She was discharged on 7 more days of prednisone with outpatient follow-up to her PCP and pulmonology. She does not need any further antibiotics at this time. I discussed with her the plan for discharge and she was okay with that and understood the risks and benefits of going home. 2. Her other medical diagnoses were evaluated and her home medications were continued where appropriate Patient Problems: Active and Suspected Problems Pneumonia (Acute) Sepsis (Acute) Community acquired pneumonia (Acute) Acute respiratory insufficiency (Acute) Objective: General: Alert, Oriented x3, Cooperative, No apparent distress HEENT: Atraumatic, PERRLA, EOMI, Normocephalic Oral: Moist Mucosa Neck: Supple, No JVD Lungs: Normal air movement, No rhonchi, No wheeze, No rales Cardiovascular: Regular rate, Regular Rhythm, Normal S1, Normal S2, No murmurs Abdomen: Soft, Non Tender, Non-Distended, No Hepato-splenomegaly Extremities: No edema, Capillary Refill Less than 3 Seconds Skin: No rashes, No breakdown Neurological: Neuro grossly intact, Sensory exam intact to light touch and pain Psych/Mental Status: Normal Affect, Appropriate - Physical Exam Vital Signs Temp Pulse Resp BP Pulse Ox 97.8 F 61 16 130/64 H 94 06/12/19 10:36 06/12/19 12:14 06/12/19 10:36 06/12/19 11:02 06/12/19 11:25 Oxygen Flow Rate (L/min) [ 3 AMBULATING on Room Air] Oxygen Flow Rate (L/min) [ 4 AMBULATION with Oxygen] Oxygen Flow Rate (L/min) [At 3 REST on Room Air] Oxygen Flow Rate (L/min) 2.5 Oxygen Delivery Method Nasal Cannula Weight: 273 lb 9.498 oz Body Mass Index (BMI) 50.5 Intake and Output for Last 24 Hours 06/10/19 06/11/19 06/12/19 23:59 23:59 23:59 Intake Total 1710 / 1710 2570 / 2570 1392.5 / 1392.5 Output Total 900 / 900 2200 / 2200 450 / 450 Balance 810 / 810 370 / 370 942.5 / 942.5 Laboratory Tests Past 24 Hrs 06/12/19 02:47 Vancomycin Trough 34.5 H POC Glucose 06/12/19 06/12/19 06/11/19 12:01 06:40 21:30 POC Glucose 271 H 89 149 H 06/11/19 16:49 POC Glucose 218 H Discharge Activity: Return to Normal Activity Call your doctor if you observe: Fever of 101 or Higher, Shortness of breath, Dizziness, Fainting spells, Swelling in the ankles, Chest pain, Increased palpitations (irregular heartbeat) Home Medications: Medications to take at Discharge Alendronate Sodium 70 mg PO NICKERSON 02/22/18 Amlodipine [Norvasc] 10 mg PO DAILY 02/22/18 Aspirin 81 mg PO DAILY 02/22/18 Fluoxetine HCl 40 mg PO DAILY 02/22/18 Hydroxyurea [Hydrea] 500 mg PO QODAY 02/22/18 Hydroxyzine HCl 25 mg PO QHS 02/22/18 Metformin HCl [Metformin HCl ER] 500 mg PO BID 02/22/18 Metoprolol Tartrate [Lopressor (beta padmaja)] 100 mg PO DAILY 02/22/18 Simvastatin 20 mg PO QHS 02/22/18 Lisinopril [Zestril] 20 mg PO DAILY 06/04/19 Ipratropium/Albuterol Sulfate [Duoneb] 3 ml INHALATION Q6H.RT PRN #30 ampul.neb 06/12/19 predniSONE tablet 40 mg PO DAILY@0800 #14 tab 06/12/19 Following Prescrptions Were Given to Patient: Ipratropium/Albuterol Sulfate [Duoneb] 3 ml INHALATION Q6H.RT PRN #30 ampul.neb PRN Reason: SHORTNESS OF BREATH Transmission Status: Received by [facility] predniSONE tablet 40 mg PO DAILY@0800 #14 tab Transmission Status: Received by [facility] Primary Care Physician: Les Valenzuela MD [Primary Care Provider] - Please follow up with your Primary Care Physician in: 3-5 days Please Follow Up With: Rickie Allen MD When: 1-2 weeks Please Follow Up With: Les Valenzuela MD Disposition: Home Minutes spent on discharge:: 35 Patient Condition:: Good Medical Necessity - Tobacco Use Smoking Status: Former smoker Meaningful Use Info Meaningful Use Diagnoses (Choose all that apply): None applicable Code Visit Inpatient E&M: 17365 Disch Hosp
--- NOTE | 2019-06-12 14:08 | CASEMGMT ---
Addendum entered by Tsering Bonilla 06/12/19 14:50: Lucy at [facility] aware that pt to be discharged today. Pt already has [facility] order for SN, PT/OT, aide. Pt is still agreeable to [facility] at this time. Charles LOMBARDO CM Original Note: Per Thi in sleep lab, she will be over at about 1600 to go over bipap and supplies with pt/ at that time. Dr. Allen aware that pt to go home on 3 liters home oxygen at rest and 4 liters ambulation and he states that pt can have bipap with 3 liters bleed in for now and then pt will f/u in 1-2weeks with pulmonary. Pt updated on all at this time, voices understanding. Charles LOMBARDO CM
--- NOTE | 2019-06-13 08:53 | CASEMGMT ---
SW did assist pt in completing LW/POA forms on 06/08/19. SW gave pt originals and copies, and copies placed in chart. MALINA Wesley
--- NOTE | 2019-06-13 16:24 | CASEMGMT ---
RN NEHAL Discharge Follow-Up Phone Call. Lace: 9 Strata: 3 Discharge Date: 06/12/19 Adm Dx: Sepsis secondary to multi-focal pneumonia, Acute Resp Failure Attempted discharge follow-up phone call. No answer. Message left for pt to call [facility] [employer] [facility] if she has any questions/concerns about the discharge instructions, medications, or follow-up appts. Moiz DODD RN CM
== END 2019-06-12 17:22 | disposition home or self-care (01) | DRG 871 ==
LOC: ED 03:28 → MS3 04:09 → ICU 06-06 15:47 → PCU 06-09 00:17
PROVIDERS: Internal Medicine; Admitting Provider Hospitalist; Emergency Provider Emergency Medicine; Family Provider Family Medicine; PCP Family Medicine; Referring Provider Hospitalist; Visit Provider Family Medicine
DX: A41.9 Sepsis, unspecified organism (principal); J96.01 Acute respiratory failure with hypoxia; J15.9 Unspecified bacterial pneumonia; Z68.43 Body mass index [BMI] 50.0-59.9, adult; I10 Essential (primary) hypertension; E78.5 Hyperlipidemia, unspecified; E11.9 Type 2 diabetes mellitus without complications; M81.0 Age-related osteoporosis without current pathological fracture; E66.01 Morbid (severe) obesity due to excess calories; D64.9 Anemia, unspecified; G47.33 Obstructive sleep apnea (adult) (pediatric); F41.9 Anxiety disorder, unspecified; F32.9 Major depressive disorder, single episode, unspecified; Z79.84 Long term (current) use of oral hypoglycemic drugs; Z85.118 Personal history of other malignant neoplasm of bronchus and lung; Z86.73 Personal history of transient ischemic attack (TIA), and cerebral infarction without residual deficits; Z87.891 Personal history of nicotine dependence; Z79.83 Long term (current) use of bisphosphonates; Z90.2 Acquired absence of lung [part of]
CPT/HCPCS: 36415; 36600; 71045; 71046; 80048; 80053; 80202; 82803; 82962; 83605; 83735; 83880; 84100; 84484; 85025; 85027; 85652; 86140; 87040; 87070; 87205; 87449; 87633; 87641; 93005; 94002; 94003; 94640; 94667; 94668; 97110; 97116; 97162; 97166; 97530; 97535; 97802; 99285; J7030; J7040; J7050; J7120; A4216; J1940

== ENCOUNTER → 2019-06-12 15:47 | Outpatient (CLI) | payer MEDICARE, OTHER, SELFPAY ==
[2019-06-04 04:38] VITALS: BMI 50.5
== END ==
PROVIDERS: Family Provider Family Medicine; PCP Family Medicine; Referring Provider Internal Medicine Critical Care Medicine; Visit Provider Internal Medicine Critical Care Medicine
DX: G47.33 Obstructive sleep apnea (adult) (pediatric) (principal)

== ENCOUNTER → 2019-07-10 | Outpatient (CLI) | payer MEDICARE, OTHER, SELFPAY ==
[2019-06-29 13:02] VITALS: BMI 50.5
[2019-07-10 13:30] VITALS: PULSE 64; PULSE 69; PULSE 79; PULSE 82; PULSE 86; PULSE 92; PULSE 95; O2SAT 88; O2SAT 89; O2SAT 90; O2SAT 91; O2SAT 93; O2SAT 98
--- NOTE | 2019-07-10 13:39 | CPS ---
Patient arrived with 3L pulse dose on. Patient placed on RA and did not desaturate. Patient walked on RA until the 1 minute where her pulse ox was 88%. 2L pulse dose applied at that time. At the 3rd minute patient desaturated to 89% and her oxygen was turned up to 3L pulse dose where she remained for the remainder of the test. Delilah [employer] TILE [employer]TER
--- NOTE | 2019-07-10 16:07 | PCM.PSN.6M ---
PSN 6 Minute Walk Test - 6 Minute Walk Test 6 Minute Walk Test: 6 Minute Walk Test PSN:6-Minute Walk Test Start: 07/10/19 13:30 Freq: Status: Active Protocol: RESP.6MINW Document 07/10/19 13:30 NORA (Rec: 07/10/19 13:41 JLA [id number]) 6 Minute Walk Test Date Performed 07/10/19 Time Performed 12:30 Height 5 ft 1 in Weight: 123.377 kg Weight in Pounds 272.[address]: Radha Kaiser Assistive device used: None Pre-test Oxygen Delivery Method Room Air Pulse Ox (%) 93 Pulse Rate (60-100 beats/min) 64 Dyspnea Charly Scale (0-10) 0 Exertion Charly Scale (6-20) 6 1st minute Oxygen Delivery Method Room Air Pulse Ox (%) 88 Pulse Rate (60-100 beats/min) 92 Dyspnea Charly Scale (0-10) 0 Exertion Charly Scale (6-20) 11 2nd minute Oxygen Flow Rate (L/min) (L/min) 2 Oxygen Delivery Method Nasal Cannula Pulse Ox (%) 93 Pulse Rate (60-100 beats/min) 79 3rd minute Oxygen Flow Rate (L/min) (L/min) 2 Oxygen Delivery Method Nasal Cannula Pulse Ox (%) 89 Pulse Rate (60-100 beats/min) 95 Dyspnea Charly Scale (0-10) 2 Exertion Charly Scale (6-20) 13 4th minute Oxygen Flow Rate (L/min) (L/min) 3 Oxygen Delivery Method Nasal Cannula Pulse Ox (%) 91 Pulse Rate (60-100 beats/min) 82 Number of Rests Taken 1 5th minute Oxygen Flow Rate (L/min) (L/min) 3 Oxygen Delivery Method Nasal Cannula Pulse Ox (%) 91 Pulse Rate (60-100 beats/min) 82 6th minute Oxygen Flow Rate (L/min) (L/min) 3 Oxygen Delivery Method Nasal Cannula Pulse Ox (%) 90 Pulse Rate (60-100 beats/min) 86 Dyspnea Charly Scale (0-10) 3 Exertion Charly Scale (6-20) 13 Post-test Oxygen Flow Rate (L/min) (L/min) 3 Oxygen Delivery Method Nasal Cannula Pulse Ox (%) 98 Pulse Rate (60-100 beats/min) 69 Full Laps Walked 11 Partial Lap, Number of Tiles Walked 39 Total Distance Walked (ft) 688 07/10/19 13:39 Cardiopulmonary Services by Jenna Ware Patient arrived with 3L pulse dose on. Patient placed on RA and did not desaturate. Patient walked on RA until the 1 minute where her pulse ox was 88%. 2L pulse dose applied at that time. At the 3rd minute patient desaturated to 89% and her oxygen was turned up to 3L pulse dose where she remained for the remainder of the test. Delilah [employer]MENTATION MANAGER Initialized on 07/10/19 13:39 - END OF NOTE - Interpretation Interpretation: The patient was noted to be 93% on room air at rest. The patient then desaturated in the first minute to 88% was placed on 2 L nasal cannula with improvement to 93%. The patient required 3 L nasal cannula pulse dose to maintain appropriate saturations throughout testing. No significant tachycardia was noted. In total, patient was able to ambulate 688 feet over the course of 6 minutes with no assistive devices and 2 breaks. - Recommendations Recommendations: Patient requires no supplemental oxygen at rest, but should be using 3 L pulse dose with any ambulation.
== END | disposition home or self-care (01) ==
LOC: PSN 12:18
PROVIDERS: Family Provider Family Medicine; PCP Family Medicine; Referring Provider Nurse Practitioner Acute Care; Visit Provider Nurse Practitioner Acute Care
DX: R06.00 Dyspnea, unspecified (principal)
CPT/HCPCS: 94618

== ENCOUNTER → 2019-07-20 12:49 | Outpatient (CLI) | payer MEDICARE, OTHER, SELFPAY ==
[2019-06-29 13:02] VITALS: BMI 50.5
[2019-07-11 13:35] VITALS: BMI 52.1
--- NOTE | 2019-07-20 12:52 | ECHOCS_ITS ---
Reason For Study: Dyspnea/SOB Procedure This was a 2D Doppler, Color Flow transthoracic echocardiogram. The study was technically difficult. Contrast injection was performed. Exam performed in department. Left Ventricle Normal LV size. The estimated ejection fraction is 55 %. Normal diastology for age. No regional wall motion abnormalities noted. Right Ventricle Normal RV size. Normal systolic function. Atria Normal left atrium. Normal right atrium. No doppler evidence for ASD. Mitral Valve There is no mitral valve stenosis. No mitral valve insufficiency. Tricuspid Valve There is no tricuspid stenosis. No tricuspid valve insufficiency. Unable to estimate RV systolic pressure due to insufficient tricuspid regurgitant envelope. Aortic Valve There is no aortic stenosis. No aortic valve insufficiency. Pulmonic Valve There is no pulmonic valvular stenosis. No pulmonic valve insufficiency. Great Vessels Normal aortic root. Pericardium/Pleural No pericardial effusion. Medication 22 gauge I.V. with prn adaptor inserted into right arm. Diluted definity 3ml given slow IV push to enhance endocardial definition. MMode/2D Measurements & Calculations LVIDd: 4.1 cm IVSd: 1.4 cm Ao root diam: 3.4 cm LVIDs: 2.4 cm LVPWd: 1.4 cm FS: 42.0 % Time Measurements MV dec time: 0.25 sec Doppler Measurements & Calculations MV E max ashvin: 80.0 cm/sec Lat Peak E' Ashvin: 3.2 cm/sec MV V2 max: 106.9 cm/sec MV A max ashvin: 93.5 cm/sec E/E' lat: 25.3 MV max P.6 mmHg MV E/A: 0.86 MV V2 mean: 58.1 cm/sec MV mean P.6 mmHg MV V2 VTI: 30.8 cm MV P1/2t max ashvin: 98.2 cm/sec Ao V2 max: 127.1 cm/sec LV V1 max: 87.5 cm/sec MV P1/2t: 56.5 msec Ao max P.5 mmHg LV V1 max P.1 mmHg MV dec slope: 509.3 cm/sec2 MVA(P1/2t): 3.9 cm2 PA V2 max: 113.6 cm/sec Interpretation Summary The study was technically difficult. Diluted definity 3ml given slow IV push to enhance endocardial definition. The estimated ejection fraction is 55 %. Normal diastology for age. The study was technically difficult. Ordering Physician: Radha Kaiser Referring Physician: Radha Kaiser Performed By: Zoltan Saldana RCS
== END ==
PROVIDERS: Family Provider Family Medicine; PCP Family Medicine; Referring Provider Nurse Practitioner Acute Care; Visit Provider Nurse Practitioner Acute Care
DX: R06.00 Dyspnea, unspecified (principal); Z98.891 History of uterine scar from previous surgery
CPT/HCPCS: 93306; Q9957; A4216; C8929

== ENCOUNTER → 2019-08-08 12:56 | Outpatient (CLI) | payer MEDICARE, OTHER, SELFPAY ==
[2019-06-29 13:02] VITALS: BMI 50.5
[2019-08-06 13:44] VITALS: BMI 51.3
--- NOTE | 2019-08-08 15:05 | PFTCOMP ---
COMPLETE PULMONARY FUNCTION TEST INTERPRETATION Brief HPI: Patient is a 69 year old female, currently under the care of Radha Kaiser, who presents to [facility] for complete pulmonary function tests secondary to diagnosis of dyspnea. Respiratory therapist reports good effort and reproducible results. Interpretation: Forced expiration spirometry shows no large airways obstructive ventilatory defect with an FEV1 of 71% predicted. There is no significant bronchodilator response by strict ATS criteria. Spirograms are of good quality and plateau normally. The respiratory flow volume loop shows a normal pattern. Lung volumes by body plethysmography show a decreased total lung capacity at 3.33 L, 75% predicted. All other lung volumes are reduced symmetrically. Diffusion capacity by carbon monoxide is decreased at 53% predicted. The airway resistance is normal. No previous pulmonary function tests were available for review. Impression: Irreversible mild restrictive ventilatory defect with a symmetric reduction diffusion capacity.
== END ==
PROVIDERS: Family Provider Family Medicine; PCP Family Medicine; Referring Provider Nurse Practitioner Acute Care; Visit Provider Nurse Practitioner Acute Care
DX: R06.00 Dyspnea, unspecified (principal)
CPT/HCPCS: 94060; 94726; 94729

== ENCOUNTER → 2019-10-08 10:52 | Outpatient (CLI) | payer MEDICARE, OTHER, SELFPAY ==
[2019-10-04 12:45] VITALS: BMI 52.3
--- NOTE | 2019-10-08 10:54 | CT_ITS ---
STUDY: CT CHEST WITHOUT CONTRAST REASON FOR EXAM: Female, 69 years old. EVAL FOR ILD, HX OF LUNG CA, L LOWER LOBE REMOVED RADIATION DOSAGE (If Supplied By Facility): CTDIvol = ( 17.58 ) mGy, DLP = ( 575.29 ) mGycm TECHNIQUE: Transaxial imaging was performed without the administration of intravenous contrast material. Multiplanar coronal and sagittal images were reformatted. Individualized dose optimization techniques were used for this CT. COMPARISON: None. FINDINGS: Minimal increased linear markings at the left lung base with mild bronchiectasis most likely secondary to postoperative changes. This is worse along the left major fissure. There is no demonstrated pleural abnormality. There are calcifications of the coronary arteries. There are multiple small lymph nodes within the mediastinum, which are normal in size and morphology most compatible with reactive lymph hyperplasia. Normal hilar regions. Normal unenhanced pulmonary arteries. Normal aorta arch and descending thoracic aorta. There are multi-level degenerative changes of the thoracic spine. There is no demonstrated abnormality of the visualized upper abdomen. CT/Chest without Contrast IMPRESSION: Findings suggestive of scarring at the left lung base with thickening of the left major fissure and focal calcification and bronchiectasis. Electronically Signed: Joshua Barksdale, at 14:13 EST , Service support ,
[2019-10-08 11:22] VITALS: PULSE 71; PULSE 73; PULSE 89; PULSE 94; PULSE 95; PULSE 97; PULSE 99; O2SAT 90; O2SAT 91; O2SAT 92; O2SAT 93; O2SAT 95; O2SAT 97
--- NOTE | 2019-10-09 10:11 | PCM.PSN.6M ---
PSN 6 Minute Walk Test - 6 Minute Walk Test 6 Minute Walk Test: 6 Minute Walk Test PSN:6-Minute Walk Test Start: 10/08/19 11:22 Freq: Status: Active Protocol: RESP.6MINW Document 10/08/19 11:22 LANEY (Rec: 10/08/19 11:25 LANEY [id number]) 6 Minute Walk Test Date Performed 10/08/19 Time Performed 11:00 Height 5 ft 2 in Weight: 276 lb Weight in Pounds 276.[address]: Patrick Zheng Assistive device used: None Pre-test Oxygen Delivery Method Room Air Pulse Ox (%) 95 Pulse Rate (60-100 beats/min) 71 Dyspnea Charly Scale (0-10) 0 Exertion Charly Scale (6-20) 6 1st minute Oxygen Delivery Method Room Air Pulse Ox (%) 93 Pulse Rate (60-100 beats/min) 95 2nd minute Oxygen Delivery Method Room Air Pulse Ox (%) 92 Pulse Rate (60-100 beats/min) 89 3rd minute Oxygen Delivery Method Room Air Pulse Ox (%) 91 Pulse Rate (60-100 beats/min) 94 4th minute Oxygen Delivery Method Room Air Pulse Ox (%) 91 Pulse Rate (60-100 beats/min) 97 5th minute Oxygen Delivery Method Room Air Pulse Ox (%) 90 Pulse Rate (60-100 beats/min) 99 6th minute Oxygen Delivery Method Room Air Pulse Ox (%) 91 Pulse Rate (60-100 beats/min) 99 Dyspnea Charly Scale (0-10) 3 Exertion Charly Scale (6-20) 13 Post-test Oxygen Delivery Method Room Air Pulse Ox (%) 97 Pulse Rate (60-100 beats/min) 73 Full Laps Walked 10 Partial Lap, Number of Tiles Walked 39 Total Distance Walked (ft) 629 - Interpretation Interpretation: The patient ambulated 629 feet over the course of 6 minutes beginning on room air without assistive devices or breaks. Pretesting oxygen saturation was noted to be 95% on room air. With ambulation, the hannah oxygen saturation was 90%. There was evidence of both impaired walk distance and significant exertional oxygen desaturation. - Recommendations Recommendations: There is no indication for the use of supplemental oxygen at this time. However, close interval follow-up is recommended, given the degree of oxygen desaturation noted during this study.
== END ==
PROVIDERS: PCP Family Medicine; Referring Provider Internal Medicine Critical Care Medicine; Visit Provider Internal Medicine Critical Care Medicine
DX: J96.11 Chronic respiratory failure with hypoxia (principal); J98.4 Other disorders of lung
CPT/HCPCS: 71250; 94618

== ENCOUNTER → 2020-01-31 14:44 | Outpatient (CLI) | payer MEDICARE, OTHER, SELFPAY ==
[2019-10-30 14:01] VITALS: BMI 50.5
--- NOTE | 2020-01-31 14:46 | RAD_ITS ---
STUDY: X-RAY CHEST REASON FOR EXAM: Female, 69 years old. SOB TECHNIQUE: PA and lateral views of the chest. COMPARISON: 06/09/2019 FINDINGS: Cardiac silhouette unremarkable. Pulmonary vascularity unremarkable. Aorta atherosclerotic. No focal airspace opacities. Moderate blunting of the left costophrenic angle. Upper abdomen unremarkable. Osseous structures intact. No pneumothorax. RAD/Chest PA and Lateral IMPRESSION: Blunting of the left costophrenic angle may represent scarring or small effusion/atelectasis. Electronically Signed: Kaden Alvarado, at 22:02 EDT Tel , Service support ,
[2020-01-31 16:21] LABS: Anion Gap 7 (5-15); BUN 23 mg/dL (7-18); BUN/Creat Ratio 23.1 RATIO (10-20); Calcium,Total 9.4 mg/dL (8.5-10.1); Chloride 104 mmol/L (98-107); EST Glomerular Filtration Rate 59 mL/min (>60); Est Glom Filt Rate - Afr Amer 71 mL/min (>60); Glucose 116 mg/dL (74-106); Potassium 4.1 mmol/L (3.5-5.1); Sodium Level 138 mmol/L (136-145)
[2020-01-31 16:22] LABS: BNP,B-Type NATRIURETIC PEPTIDE 20.2 pg/mL (0-100)
--- OUTSIDE RECORDS SUMMARY | 2020-06-24 15:34 | XMS RPT_ITS | CCD ---
:1950 External Reference #:[id number] Author Organization [facility] Care Team Providers Name Role Phone Boo Unavailable Unavailable Boo Unavailable Unavailable Prieto, K Unavailable Unavailable Prieto, K Unavailable Unavailable Felicia Valenzuela Unavailable Unavailable Prieto, K Unavailable Unavailable Prieto, K Unavailable Unavailable Felicia Valenzuela Unavailable Unavailable OLBRYCH Unavailable Unavailable Felicia Valenzuela () Primary Care Provider Allergies Reported Allergen Reaction(s) Severity Date of Onset Location Lisinopril Cough [facility]-2019 [facility] ([id number] No Known Allergies [facility] Translations: [ No Known Sys tem Repository Allergies] No Known Medication [facility] Allergies Translations: [ Sy stem Repository No Known Medication Allergies] Seasonal allergy Intolerance 05-11-2016 - [facility] Catherine mojica Other Translations: [ SEASONAL Cam pus Repository ALLERGIES] Thiazides Translations: [ AOF [facility] thiazide diuretics] System R epository Medications Medication Name Sig Date Prescriber Location Acetaminophen acetaminophen (TYLENOL 01-08-2017 Summer ([facility]) [facility] EXTRA STRENGTH) 500 mg [place] (4419 5) tablet Take 1 tablet by mouth every 8 hours as needed for Pain. 0 01/08/2017 Active Comment: Take 1 tablet by mouth every 8 hours as needed for Pain. Albuterol albuterol (PROVENTIL) 2.5 mg 08-17-2019 [facility] (43048) /3 mL (0.083 %) nebulizer solution Use 3 mL via nebulizer every 6 hours as needed. OVER 5-15 MINUTES. FOR WHEEZING AND SHORTNESS OF BREATH. 100 Vial 0 08/17/2019 Active Comment: Use 3 mL via nebulizer every 6 hours as needed. OVER 5-15 MINUTES. FOR WHEEZING AND SHORTNESS OF BR EATH. Alendronate alendronate 05-17-2019 - Jon Riley) [facility] (FOSAMAX) 70 mg 05-21-2020 [facility] (40035) tablet Take 1 tablet by mouth one time a week. 12 tablet 3 05/21/2020 Active Comment: Take 1 tablet by mouth one t david a week. Take 1 tablet by mouth once each week. amLODIPine amLODIPine (NORVASC) 01-02-2020 - Jon Riley) [facility] 10 mg tablet 05-21-2020 [facility] (58775) Indications: Essential hypertension Take 1 tablet by mouth once daily. 90 tablet 1 05/21/2020 Active Comment: Take 1 tablet by mouth once daily. Aspirin aspirin 81 mg chewable tablet Take 81 [facility] Provider [facility] (49975) mg by mouth once daily. 0 Active Comment: Take 81 mg by mouth once edmond ly. Calcium Carbonate / CALCIUM CARBONATE/VITAMIN D3 [facility] vitamin D3 (CALCIUM + D ORAL) Take 2 (4 1895) tablets by mouth once daily. 0 Active CALCIUM CARBONATE/VITAMIN D3 (CALCIUM + D [facility] (10692) ORAL) Take 2 tablets by mouth once daily. 0 Active CALCIUM CARBONATE/VITAMIN D3 (CALCIUM + D [facility] (68663) ORAL) Take 2 tablets by mouth once daily. 0 Active CALCIUM CARBONATE/VITAMIN D3 (CALCIUM + D [facility] (64161) ORAL) Take 2 tablets by mouth once daily. 0 Active CALCIUM CARBONATE/VITAMIN D3 (CALCIUM + D [facility] (05815) ORAL) Take 2 tablets by mouth once daily. 0 Active Comment: Take 2 tablets by mouth once daily. carvedilol carvedilol (COREG) 12.5 mg 08-06-2019 [facility] Provider [facility] (73720) tablet Take 12.5 mg by mouth twice daily. 0 08/06/2019 Active Comment: Take 12.5 mg by mouth twice daily. Clotrimazole clotrimazole 05-21-2020 - Jon Riley) [facility] (LOTRIMIN, CLOTRIM) 06-04-2020 [facility] (11888) 1 % cream Apply to Jon Riley) affected area twice Fatimahley daily for 14 days. 24 g 1 05/21/2020 06/04/2020 Active Comment: Apply to affected area twice daily for 14 days. FLUoxetine FLUoxetine HCl (PROZAC) 05-21-2020 Jon Riley ) [facility] 20 mg capsule Bianca (87485) Indications: Moderate episode of recurrent major depressive disorder (HCC) Take 3 capsules by mouth once daily. 90 capsule 2 05/21/2020 Active FLUoxetine HCl (PROZAC) 06-14-2019 - [facility] ([place]) [facility] 05-21-2020 [facility] (26548) Indications: Moderate episode of recurrent major depressive disorder (HCC) , ALANA (generalized anxiety disorder) Take 1 capsule by mouth once daily. 90 capsule 3 06/14/2019 05/21/2020 Discontinued Comment: Take 3 capsules by mouth onc e daily. Take 1 capsule by mouth once daily. hydrOXYzine hydrOXYzine HCl 02-19-2020 - Jon Riley) [facility] (ATARAX) 25 mg 05-21-2020 [facility] (27076) tablet Take 1 tablet by mouth every 8 hours as needed. 90 tablet 1 05/21/2020 Active Comment: Take 1 tablet by mouth every 8 hours as needed. Losartan losartan (COZAAR) 25 04-17-2020 Jon Riley) [facility] mg tablet Take 1 Bianca (79686) tablet by mouth once daily. 30 tablet 5 04/17/2020 Active Comment: Take 1 tablet by mouth once daily. metFORMIN metFORMIN ER 01-23-2020 - Jon Riley) [facility] (GLUCOPHAGE XR) 500 05-21-2020 [facility] (97989) mg 24 hr tablet Indications: Type 2 diabetes mellitus without complication, without long-term current use of insulin ([facility]) Take 2 tablets by mouth twice daily before meals. 360 tablet 1 05/21/2020 Active Comment: Take 2 tablets by mouth twic e daily before meals. Simvastatin simvastatin (ZOCOR) 12-07-2019 - Jon Riley) [facility] 20 mg tablet 05-21-2020 [facility] (64440) Indications: Type 2 diabetes mellitus without complication, without long-term current use of insulin ([facility]) Take 1 tablet by mouth daily at bedtime. 90 tablet 1 05/21/2020 Active Comment: Take 1 tablet by mouth daily at bedtime. Problems Active Problems Category Problem Name Status Date Location Cataract Bilateral pseudophakia Active 01-03-2018 [facility] - (73021) Diabetes mellitus Type 2 diabetes mellitus Active 05-11-2016 [facility] without complication - (23633) Disorders of lipid Hypercholesterolemia Active 05-11-2016 [facility] metabolism - (80177) Essential hypertension Essential hypertension Active 05-11-20 16 [facility] - (99986) Mood disorders Recurrent major depressive Active [facility] episodes, moderate (35913) 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 [facility] unspecified nature or - (27708 ) uncertain behavior Other and ill-defined Cerebral ischemia Active 05-11-2016 [facility] cerebrovascular disease - (441 95) Other bone disease and Osteopenia Active [facility] musculoskeletal (49056) deformities Other connective tissue Triggering of digit Active [facility] disease (44134) Other connective tissue Acquired trigger finger Active [facility] disease (99470) Other eye disorders Bilateral vitreous floaters Active 2017 [facility] - (29747) Other eye disorders Meibomian gland dysfunction Active 2016 [facility] of bilateral eyes - (19348) Other lower respiratory Shortness of breath Active 05-03-2018 [facility] disease - (72773) Other nutritional; Body mass index 40+ - Active 01-07-2017 [facility] endocrine; and severely obese - (74912) metabolic disorders Residual codes; Obstructive sleep apnea Active 01-07-2017 [facility] unclassified syndrome - (15960) Unclassified H/O: R cataract extraction Active 08-26-2017 [facility] - (26088) Unclassified H/O: L cataract extraction Active 08-10-2017 [facility] - (76780) Unclassified Patient encounter status Active [facility] (78263) Past or Other Problems Category Problem Name Status Date Location Blindness and vision Regular astigmatism, Completed 10-11-2016 - [facility] defects bilateral (85781) Cancer of uterus History of malignant Completed 05-11-2016 - [facility] neoplasm of uterine (81762) body Cancer; other and History of malignant Completed 08-16-2017 - [facility] unspecified primary neoplasm of thoracic (16076) cavity structure Conditions associated Benign paroxysmal Completed 03-21-2018 - [facility] with dizziness or positional vertigo (441 95) vertigo Other and unspecified Neuroendocrine tumor Completed 01-07-2017 - [facility] benign neoplasm (91141) Other eye disorders Excess skin of eyelid Completed 01-03-2019 - [facility] (75137) Other eye disorders Tear film insufficiency Completed 10-05-2016 - [facility] (83064) Results Result Name Value Range Unit Interpretation Flag Date Location progress on 2020-06 PROGRESS HNO ID: [id number] Normal 06-23-2020 [facility] Author: Catrachita Posada (Pa) [facility] Service: ? ([id number]) Author Type: Physician Poacher Wringer Operator Type: Progress Notes Filed: 06/23/2020 9:43 AM Note Text: Catrachita Posada PA-C Department of Orthopaedics Orthopaedics [address] [facility] [address] Dept: [phone] Dept June 23, 2020 CHIEF COMPLAINT: New and Trigger Finger of the Left Hand Ms. Bri Jiménez is a 69 year old female she presents wit h catching and locking in her left middle digit for about the past 2 months . Patient states that the digit become locked and it will take about 2 0 minutes of massage to get it released. Pain today is a 10 out of 10 ach ing in the finger. The patient is [id number], she states that she broke her left middle knuckle on a filing cabinet after remote injury. She is a diabetic, recent A1c was 6.6 on May 09, 2020. ASSESSMENT: M65.332 Trigger middle finger of left hand PLAN: We discussed surgical intervention, the patients quest ions were addressed. The risks, benefits, alternatives and were discus sed, patinet understands and wishes to pursue surgical intervention. Ms. Bri Jiménez was advised as to contrast therapies and /or to take analgesics/anti-inflammatories as needed and all contraindic ations were reviewed. OBJECTIVE: Ms. Bri Jiménez is a pleasant 69 year old in no apparent distress. Gen:There were no vitals taken for this visit. nl development, obese, no deformities ENT: Normocephalic, normal hearing, moist mucosa CV: Pulses:Radial= 2+ and symmetric, capillary refill < 2 se cs, no peripheral edema/varicosities Skin: no rash, bruising or lesions. Good turgor. Psych: cooperative and appropriate, alert and oriented x 3, good mood and affect. Musculoskeletal: Left middle digit with palpable clicking at the A1 edward si te, there is a palpable nodule at the A1 edward site. Patient has difficult y with full flexion of the digit. Sensation is intact to the digit. Imaging: Deferred today. Supporting Subjective Information Below: Past Surgical History: PAST SURGICAL HISTORY Procedure Laterality Date - CATARACT EXTRACTION W/ INTRAOCULAR LENS IMPLANT HX Left - CATARACT EXTRACTION W/ INTRAOCULAR LENS IMPLANT HX Right 1 10/26/2016 - PAST SURGICAL HISTORY OF Tonsillectomy - PAST SURGICAL HISTORY OF Left knee surgery - PAST SURGICAL HISTORY OF 05/17/1975 - PAST SURGICAL HISTORY OF Ganglion cyst removed from left hand - PAST SURGICAL HISTORY OF Cyst removed from right wrist - PAST SURGICAL HISTORY OF 1983 Hysterectomy - PAST SURGICAL HISTORY OF Oily deposits removed from scalp - PAST SURGICAL HISTORY OF laser surgery for abnormal cells after hysterectomy - THORACOSCOPY W/DX WEDGE RESEXN ANATO LUNG RESEXN Left 12/12 VATS left lower lung wedge resection of carcinoid tumor Medications: Current Outpatient Medications Medication Sig - hydrOXYzine HCl (ATARAX) 25 mg tablet Take 1 tablet by christy th every 8 hours as needed. - metFORMIN ER (GLUCOPHAGE XR) 500 mg 24 hr tablet Take 2 ta blets by mouth twice daily before meals. - amLODIPine (NORVASC) 10 mg tablet Take 1 tablet by mouth o nce daily. - simvastatin (ZOCOR) 20 mg tablet Take 1 tablet by mouth da dm at bedtime. - FLUoxetine HCl (PROZAC) 20 mg capsule Take 3 capsules by m outh once daily. - alendronate (FOSAMAX) 70 mg tablet Take 1 tablet by mouth one time a week. - losartan (COZAAR) 25 mg tablet Take 1 tablet by mouth once daily. - carvedilol (COREG) 12.5 mg tablet Take 12.5 mg by mouth tw ice daily. - CALCIUM CARBONATE/VITAMIN D3 (CALCIUM + D ORAL) Take 2 tab lets by mouth once daily. - aspirin 81 mg chewable tablet Take 81 mg by mouth once edmond ly. - albuterol (PROVENTIL) 2.5 mg /3 mL (0.083 %) nebulizer claude ution Use 3 mL via nebulizer every 6 hours as needed. OVER 5-15 MINUTES. FO R WHEEZING AND SHORTNESS OF BREATH. - acetaminophen (TYLENOL EXTRA STRENGTH) 500 mg tablet Take 1 tablet by mouth every 8 hours as needed for Pain. No current facility-administered medications for this visit. Allergies: Lisinopril and Seasonal Allergies ROS: General (negative for fatigue, malaise, weight loss/gain) HEENT (negative for headache, earache, recent vision changes , sinus pain, sore throat) Respiratory (no recent shortness of breath, hem optysis) CV (negative for chest tightness, palpitations) Musculoskeletal (see HPI) Psych (no depression, anxiety) This note was partially generated using [employer] system, and there may be some incorrect words, spellings, and punctu ation that were not noted in checking the note before saving. Catrachita Posada PA-C PROGRESS HNO ID: [id number] Normal 06-23-2020 [facility] Author: Adrianne Cedeño [facility] Service: ? ([id number]) Author Type: ? Type: Progress Notes Filed: 06/23/2020 9:43 AM Note Text: AMB ROOMING INTAKE FLOWSHEET DATA Risk Screening Do you have concerns about personal safety or safety in the home?: No Pain Pain Level: 10 Pain Location: Hand-Left Description: Other: See comment, Numbness(locking) Duration Amount of Time: 2 Duration Units: Months Frequency: Intermittent Intervention: Medication Patient here today with complaints of left middle trigger fi nger. States the middle finger locks down and will take up to 20 minutes to get it to release. She is right hand dominant. cnpn on 2020-06-23 CNPN Telephone (SHIMON) Normal 06-23-2020 [facility] BRI Galindo ([id number]) 1950 [facility] Date Time Provider Department ([id number]) 06/23/20 REILLY, BLAIR ORTHWS During your visit today, we recorded the following informati on about you: Adrianne Catherine Davidson Staley 06/23/2020 9:28 AM Signed Surgical request completed for left middle trigger finger re lease on 07/04/2020. Post op appointments have been scheduled and m tyrese to patient. Please file pre op COVID order. Catrachita Posada PA-C 06/23/2020 9:49 AM Signed COVID testing ordered. Awa Marrero [facility] 06/23/2020 10:18 AM Signed Noted in Valenzuela. Adrianne Cedeño Ma 06/23/2020 1:48 PM Signed Surgery scheduled as requested. Allergies As of Date: 06/23/2020 Noted Allergy Reaction LISINOPRIL 10/20/2019 3 - Cough SEASONAL ALLERGIES 05/11/2016 5 - Intolerance Date Reviewed: 06/23/2020 Reviewed by: Catrachita Posada (Pa) - Fully Assessed Reason for Visit: Schedule Surgery [1330] Primary Visit Diagnosis:Acquired trigger finger [M65.30] Other Visit Diagnosis:Pre-op testing [Z01.818] Order(s):SURGICAL REQUEST - ELECTIVE (04/2020) [[id number]] Orde r #: [id number]: 1 PRE-PROCEDURE AND PRE-OPERATIVE COVID [SQPOCOVD] Order #: [id number] FUTURE Prescriptions as of 06/23/2020 Sig: HYDROXYZINE HCL 25 MG TABLET Take 1 tablet by mouth every * METFORMIN ER 500 MG TABLET,EX* Take 2 tablets by mouth twice * AMLODIPINE 10 MG TABLET Take 1 tablet by mouth once d* SIMVASTATIN 20 MG TABLET Take 1 tablet by mouth daily * FLUOXETINE 20 MG CAPSULE Take 3 capsules by mouth once* ALENDRONATE 70 MG TABLET Take 1 tablet by mouth one ti* LOSARTAN 25 MG TABLET Take 1 tablet by mouth once d* CARVEDILOL 12.5 MG TABLET Take 12.5 mg by mouth twice d* ALBUTEROL SULFATE 2.5 MG/3 ML* Use 3 mL via nebulizer every * CALCIUM + D ORAL Take 2 tablets by mouth once * ACETAMINOPHEN 500 MG TABLET Take 1 tablet by mouth every * ASPIRIN 81 MG CHEWABLE TABLET Take 81 mg by mouth once jl* Problem List As Of Date 06/23/2020 Noted Resolved 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 Transient cerebral ischemia [G45.9] 05/11/2016 More... Essential hypertension [I10] 05/11/2016 More... Hypercholesteremia [E78.00] 05/11/2016 Type 2 diabetes mellitus, without long-term cur*05/11/2016 More... 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 DISPOSITION AND FOLLOW-UP 01/07/2017 01/09/2017 More... Mechanical venous thromboembolism (VTE) prophyl*01/07/2017 0 01/09/2017 More... Pain, postoperative, acute [G89.18] 01/07/2017 01/21/2020 More... Morbid obesity with BMI of 50.0-59.9, adult (HC*01/07/2017 More... Obstructive sleep apnea syndrome [G47.33] 01/07/2017 More... Osteopenia [M85.80] Status post cataract extraction and insertion o*08/10/2017 History of lung cancer [Z85.118] 08/16/2017 Status post cataract extraction and insertion o*08/26/2017 Type 2 diabetes mellitus without retinopathy (H*01/03/2018 0 01/21/2020 Vitreous floaters of both eyes [H43.393] 01/03/2018 Pseudophakia of both eyes [Z96.1] 01/03/2018 BPPV (benign paroxysmal positional vertigo) [H8*03/21/2018 Type 2 diabetes mellitus with diabetic neuropat* Dermatochalasis of both upper eyelids [H02.831,*01/03/2019 Encounter Status:Closed by ADRIANNE CEDEÑO MA on 06/23/20 cnov on 2020-06-23 CNOV Office Visit (ORTHWS) Normal 06-23-[address] [place] [address] [facility] BRI JIMÉNEZ ([id number]) 1950 [facility] Date Time Provider Department ([id number]) 06/23/20 9:00 AM CATRACHITA POSADA) SHIMON During your visit today, we recorded the following informati on about you: Adrianne Cedeño Ma 06/23/2020 9:43 AM Signed AMB ROOMING INTAKE FLOWSHEET DATA Risk Screening Do you have concerns about personal safety or safety in the home?: No Pain Pain Level: 10 Pain Location: Hand-Left Description: Other: See comment, Numbness(locking) Duration Amount of Time: 2 Duration Units: Months Frequency: Intermittent Intervention: Medication Patient here today with complaints of left middle trig karen finger. States the middle finger locks down and will take up to 20 minutes to get it to release. She is right hand dominant. Catrachita Posada PA-C 06/23/2020 9:43 AM Signed Catrachita Posada PA-C Department of Orthopaedics Orthopaedics [address] [place] [id number] Dept: [phone] Dept June 23, 2020 CHIEF COMPLAINT: New and Trigger Finger of the Left Hand Ms. Bri Jiménez is a 69 year old female she presents wit h catching and locking in her left middle digit for about the past 2 months. Patient states that the digit become locked and it will take about 20 minutes of massage to get it released. Pain today is a 10 out of 10 aching in the finger. The patient is [id number], she states that she broke he r left middle knuckle on a filing cabinet after remote injury. She is a diabetic, recent A1c was 6.6 on May 09, 2020. ASSESSMENT: M65.332 Trigger middle finger of left hand PLAN: We discussed surgical intervention, the patients quest ions were addressed. The risks, benefits, alternatives and were discus sed, patinet understands and wishes to pursue surgical intervention. Ms. Bri Jiménez was advised as to contrast therapies and /or to take analgesics/anti-inflammatories as needed and all contraindic ations were reviewed. OBJECTIVE: Ms. Bri Jiménez is a pleasant 69 year old in no apparent distress. Gen:There were no vitals taken for this visit. nl development, obese, no deformities ENT: Normocephalic, normal hearing, moist mucosa CV: Pulses:Radial= 2+ and symmetric, capillary r efill < 2 secs, no peripheral edema/varicosities Skin: no rash, bruising or lesions. Good turgor. Psych: cooperative and appropriate, alert and oriented x 3, good mood and affect. Musculoskeletal: Left middle digit with palpable clicking at the A1 edward si te, there is a palpable nodule at the A1 edward site. Patient has difficult y with full flexion of the digit. Sensation is intact to the digit. Imaging: Deferred today. Supporting Subjective Information Below: Past Surgical History: PAST SURGICAL HISTORY Procedure Laterality Date - CATARACT EXTRACTION W/ INTRAOCULAR LENS IMPLANT HX Left - CATARACT EXTRACTION W/ INTRAOCULAR LENS IMPLANT HX Right 1 10/26/2016 - PAST SURGICAL HISTORY OF Tonsillectomy - PAST SURGICAL HISTORY OF Left knee surgery - PAST SURGICAL HISTORY OF 05/17/1975 - PAST SURGICAL HISTORY OF Ganglion cyst removed from left hand - PAST SURGICAL HISTORY OF Cyst removed from right wrist - PAST SURGICAL HISTORY OF 1983 Hysterectomy - PAST SURGICAL HISTORY OF Oily deposits removed from scalp - PAST SURGICAL HISTORY OF laser surgery for abnormal cells after hysterectomy - THORACOSCOPY W/DX WEDGE RESEXN ANATO LUNG RESEXN Left 12/12 VATS left lower lung wedge resection of carcinoid tumor Medications: Current Outpatient Medications Medication Sig - hydrOXYzine HCl (ATARAX) 2 5 mg tablet Take 1 tablet by mouth every 8 hours as needed. - metFORMIN ER (GLUCOPHAGE XR) 500 mg 24 hr tablet Take 2 ta blets by mouth twice daily before meals. - amLODIPine (NORVASC) 10 mg tablet Take 1 tablet by mouth o nce daily. - simvastatin (ZOCOR) 20 mg tablet Take 1 tablet by mouth daily at bedtime. - FLUoxetine HCl (PROZAC) 20 mg capsule Take 3 capsule s by mouth once daily. - alendronate (FOSAMAX) 70 mg tablet Take 1 tablet by mouth one time a week. - losartan (COZAAR) 25 mg tablet Take 1 tablet by mouth once daily. - carvedilol (COREG) 12.5 mg tablet Take 12.5 mg by mouth tw ice daily. - CALCIUM CARBONATE/VITAMIN D3 (CALCIUM + D ORAL) Take 2 tablets by mouth once daily. - aspirin 81 mg chewable tablet Take 81 mg by mouth once edmond ly. - albuterol (PROVENTIL) 2.5 mg /3 mL (0. 083 %) nebulizer solution Use 3 mL via nebulizer every 6 hours as needed. OVER 5-15 MINUTES. FOR WH EEZING AND SHORTNESS OF BREATH. - acetaminophen (TYLENOL EXTRA STRENGTH) 500 mg tablet Take 1 tablet by mouth every 8 hours as needed for Pain. No current facility-administered medications for this visit. Allergies: Lisinopril and Seasonal Allergies ROS: General (negative for fatigue, malaise, weight loss/gain) HEENT (negative for headache, earache, r ecent vision changes, sinus pain, sore throat) Respiratory (no recent shortness of breath, hemoptys is) CV (negative for chest tightness, palpitations) Musculoskeletal (see HPI) Psych (no depression, anxiety) This note was partially generated using [employer] r ecognition system, and there may be some incorrect words, spellings, and punctuat ion that were not noted in checking the note before saving. Catrachita Posada PA-C Referring Provider: JON VALENZUELA) [[id number]] Allergies As of Date: 06/23/2020 Noted Allergy Reaction LISINOPRIL 10/20/2019 3 - Cough SEASONAL ALLERGIES 05/11/2016 5 - Intolerance Date Reviewed: 06/23/2020 Reviewed by: Catrachita Posada (Pa) - Fully Assessed Reason for Visit: New [556211] Trigger Finger [1375] Visit Diagnosis:Trigger middle finger of left hand [M65.332] Order(s):CONSULT TO ORTHOPAEDICS [7291] Order #: [id number] ty: 1 Prescriptions as of 06/23/2020 Sig: HYDROXYZINE HCL 25 MG TABLET Take 1 tablet by mouth every * METFORMIN ER 500 MG TABLET,EX* Take 2 tablets by mouth twice * AMLODIPINE 10 MG TABLET Take 1 tablet by mouth once d* SIMVASTATIN 20 MG TABLET Take 1 tablet by mouth daily * FLUOXETINE 20 MG CAPSULE Take 3 capsules by mouth once* ALENDRONATE 70 MG TABLET Take 1 tablet by mouth one ti* LOSARTAN 25 MG TABLET Take 1 tablet by mouth once d* CARVEDILOL 12.5 MG TABLET Take 12.5 mg by mouth twice d* CALCIUM + D ORAL Take 2 tablets by mouth once * ASPIRIN 81 MG CHEWABLE TABLET Take 81 mg by mouth once jl* ALBUTEROL SULFATE 2.5 MG/3 ML* Use 3 mL via nebulizer every * ACETAMINOPHEN 500 MG TABLET Take 1 tablet by mouth every * Problem List As Of Date 06/23/2020 Noted Resolved 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 Transient cerebral ischemia [G45.9] 05/11/2016 More... Essential hypertension [I10] 05/11/2016 More... Hypercholesteremia [E78.00] 05/11/2016 Type 2 diabetes mellitus, without long-term cur*05/11/2016 More... 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 DISPOSITION AND FOLLOW-UP 01/07/2017 01/09/2017 More... Mechanical venous thromboembolism (VTE) prophyl*01/07/2017 0 01/09/2017 More... Pain, postoperative, acute [G89.18] 01/07/2017 01/21/2020 More... Morbid obesity with BMI of 50.0-59.9, adult (HC*01/07/2017 More... Obstructive sleep apnea syndrome [G47.33] 01/07/2017 More... Osteopenia [M85.80] Status post cataract extraction and insertion o*08/10/2017 History of lung cancer [Z85.118] 08/16/2017 Status post cataract extraction and insertion o*08/26/2017 Type 2 diabetes mellitus without retinopathy (H*01/03/2018 0 01/21/2020 Vitreous floaters of both eyes [H43.393] 01/03/2018 Pseudophakia of both eyes [Z96.1] 01/03/2018 BPPV (benign paroxysmal positional vertigo) [H8*03/21/2018 Type 2 diabetes mellitus with diabetic neuropat* Dermatochalasis of both upper eyelids [H02.831,*01/03/2019 Letter Text Encounter Status:Closed by CATRACHITA POSADA PA-C on 06/23/20 cnco on 2020-06-23 CNCO Letter Text Normal 06-23-[address] [facility] ([id number]) cnpn on 2020[facility]06-16 [facility]) Normal 06-16-2020 [facility] BRI JIMÉNEZ ([id number]) 1950 [facility] Date Time Provider Department ([id number]) 06/16/20 PODLOGARELIS OBRIEN ([facility]) FAMPWS During your visit today, we recorded the following informati on about you: Kelsy Mc LPN 06/16/2020 10:30 AM Signed Pt reports on 05/21 she had an appt with p cp and Prozac was increased from 40 mg to 60 mg. Pt was to call with an update. Pt reports she has not seen any change and she feels the same. Pt reports she doesn't feel s uicidal or anything like that but she doesn't feel any different. Also pt is asking for order for mammogram screening. Call pt when this has been ordered. Kelsy Infante Podlogar, SPECIAL AGENT.[place] 06/16/2020 12:14 PM Signed Patient at highest dose of P rozac. Would she be interested in adding on another medication for depression? Order form mammogram placed, sandy se assist in scheduling. Thanks, Arelis Coatslogar, SPECIAL AGENT.CIGAR TOBACCO PROCESSING SUPERVISOR Ally Stark MA, [place] 06/16/2020 1:15 PM Signed Patient would rather not add a medication at this time. Please assist patient to get mammogram scheduled. Ally Stark MA Allergies As of Date: 06/16/2020 Noted Allergy Reaction LISINOPRIL 10/20/2019 3 - Cough SEASONAL ALLERGIES 05/11/2016 5 - Intolerance Date Reviewed: 02/15/2020 Reviewed by: Elizabeth Ritchie, RN, RN - Fully Assessed Reason for Visit: Medication Update [1676] Orders [681] Primary Visit Diagnosis:Visit for screening mammogram [Z12.3 1] Order(s):[facility] SCREENING [[id number]] Order #: [id number] FUTURE Prescriptions as of 06/16/2020 Sig: HYDROXYZINE HCL 25 MG TABLET Take 1 tablet by mouth every * METFORMIN ER 500 MG TABLET,EX* Take 2 tablets by mouth twice * AMLODIPINE 10 MG TABLET Take 1 tablet by mouth once d* SIMVASTATIN 20 MG TABLET Take 1 tablet by mouth daily * FLUOXETINE 20 MG CAPSULE Take 3 capsules by mouth once* ALENDRONATE 70 MG TABLET Take 1 tablet by mouth one ti* LOSARTAN 25 MG TABLET Take 1 tablet by mouth once d* CARVEDILOL 12.5 MG TABLET Take 12.5 mg by mouth twice d* ALBUTEROL SULFATE 2.5 MG/3 ML* Use 3 mL via nebulizer every * CALCIUM + D ORAL Take 2 tablets by mouth once * ACETAMINOPHEN 500 MG TABLET Take 1 tablet by mouth every * ASPIRIN 81 MG CHEWABLE TABLET Take 81 mg by mouth once jl* Problem List As Of Date 06/16/2020 Noted Resolved 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 Transient cerebral ischemia [G45.9] 05/11/2016 More... Essential hypertension [I10] 05/11/2016 More... Hypercholesteremia [E78.00] 05/11/2016 Type 2 diabetes mellitus, without long-term cur*05/11/2016 More... 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 DISPOSITION AND FOLLOW-UP 01/07/2017 01/09/2017 More... Mechanical venous thromboembolism (VTE) prophyl*01/07/2017 0 01/09/2017 More... Pain, postoperative, acute [G89.18] 01/07/2017 01/21/2020 More... Morbid obesity with BMI of 50.0-59.9, adult (HC*01/07/2017 More... Obstructive sleep apnea syndrome [G47.33] 01/07/2017 More... Osteopenia [M85.80] Status post cataract extraction and insertion o*08/10/2017 History of lung cancer [Z85.118] 08/16/2017 Status post cataract extraction and insertion o*08/26/2017 Type 2 diabetes mellitus without retinopathy (H*01/03/2018 0 01/21/2020 Vitreous floaters of both eyes [H43.393] 01/03/2018 Pseudophakia of both eyes [Z96.1] 01/03/2018 BPPV (benign paroxysmal positional vertigo) [H8*03/21/2018 Type 2 diabetes mellitus with diabetic neuropat* Dermatochalasis of both upper eyelids [H02.831,*01/03/2019 Encounter Status:Closed by PODLOGARARELIS CNP on 06/16/20 progress on 2020-05 PROGRESS HNO ID: [id number] Normal 05-21-2020 [facility] Author: Jon Duarte () Bianca Barron ([id number]) Service: ? Author Type: Physician Type: Progress Notes Filed: 05/21/2020 5:31 PM Note Text: Chief Complaint Patient presents with: F/U 3 months HPI Bri Jiménez is a 69 year old female who presents here to day for 3 month follow up. C/o numbness in left middle finger with occasional episodes where her finger gets stuck in flexion. Has to massage and then slowly work it back out to straighten it. Has some numbness associated with it. Denies weakness or recent injury. DIABETES MELLITUS: Ms. Jiménez was last seen 3 months ago. Sin ce our last visit she denies excessive thirst or increased frequency of urination, numbness, tingling or pain in extremities, new or unusual vi sual symptoms and low sugar/hypoglycemic reactions. Follows a diabetic t generally not very much. She is compliant with medication(s) and is to lerating med(s) without any side effects. She reports checking her gl ucose on a once a day schedule with sugars in the fasting 120-155 range . Patient's last HgA1C was Hemoglobin A1C (%) Date Value 05/07/2020 6.6 11/29/2018 6.2 ) Last Ophthalmology exam was within the past 3 months-Dr. Valarie rogel's office. No DM changes Last Podiatry exam was more than 12 months ago Depression symptoms uncontrolled with stressors from COVID, being unable to see family, recent deaths in the family. C/o decreased en ergy/interest, sleep disturbance, feeling down, decreased appetite, occasio nal thoughts that she doesn't want to be around anymore. Denies SI/HI. Ta john Prozac as prescribed without side effects. JAJA: using Bipap nightly and is working well. Waking up feel ing well rested. Denies headaches. 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 Past medical history, appointments, medications, allergies luca cervantes. 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 Leiva-hematology/oncology. - Cataracts, bilateral - Depression - Diabetes (HCC) Type II - Environmental allergies ??? - Fibromyalgia - Hypertension - Morbid obesity (HCC) 01/06/2017 BMI 50.3 - Neuropathy - JAJA (obstructive sleep apnea) Bipap - Osteopenia - Thrombocytosis (HCC) Seeing Dr. Leiva; on hydroxyurea and blood thinners - TIA (transient ischemic attack) 04/26/2016 TIA - Uterine cancer (HCC) 1985 hysterectomy Previous Surgical History PAST SURGICAL HISTORY Procedure Laterality Date - CATARACT EXTRACTION W/ INTRAOCULAR LENS IMPLANT HX Left - CATARACT EXTRACTION W/ INTRAOCULAR LENS IMPLANT HX Right 1 10/26/2016 - PAST SURGICAL HISTORY OF Tonsillectomy - PAST SURGICAL HISTORY OF Left knee surgery - PAST SURGICAL HISTORY OF 05/17/1975 - PAST SURGICAL HISTORY OF Ganglion cyst removed from left hand - PAST SURGICAL HISTORY OF Cyst removed from right wrist - PAST SURGICAL HISTORY OF 1983 Hysterectomy - PAST SURGICAL HISTORY OF Oily deposits removed from scalp - PAST SURGICAL HISTORY OF laser surgery for abnormal cells after hysterectomy - THORACOSCOPY W/DX WEDGE RESEXN ANATO LUNG RESEXN Left 12/12 VATS left lower lung wedge resection of carcinoid tumor Family History FAMILY HISTORY Problem Relation Age of Onset - Diabetes Mother - Cataract Mother - other (HTN) Mother - Diabetes Sister - other (CHF) Sister - Cancer Sister d/t brain cancer - other (Borderline Diabetes) Sister - other (Tuberculosis) Brother d/t TB @ 10 months Patient Allergies ALLERGIES Allergen Reactions - Lisinopril Cough - Seasonal Allergies Intolerance Current Medications Current Outpatient Medications on File Prior to Visit Medication Sig - losartan (COZAAR) 25 mg tablet Take 1 tablet by mouth once daily. - hydrOXYzine HCl (ATARAX) 25 mg tablet Take 1 tablet by christy th every 8 hours as needed. - metFORMIN ER (GLUCOPHAGE XR) 500 mg 24 hr tablet Take 2 ta blets by mouth twice daily before meals. - amLODIPine (NORVASC) 10 mg tablet Take 1 tablet by mouth o nce daily. - simvastatin (ZOCOR) 20 mg tablet Take 1 tablet by mouth da dm at bedtime. - albuterol (PROVENTIL) 2.5 mg /3 mL (0.083 %) nebulizer claude ution Use 3 mL via nebulizer every 6 hours as needed. OVER 5-15 MINUTES. FO R WHEEZING AND SHORTNESS OF BREATH. - FLUoxetine HCl (PROZAC) 40 mg capsule Take 1 capsule by mo uth once daily. - alendronate (FOSAMAX) 70 mg tablet Take 1 tablet by mouth once each week. - CALCIUM CARBONATE/VITAMIN D3 (CALCIUM + D ORAL) Take 2 tab lets by mouth once daily. - acetaminophen (TYLENOL EXTRA STRENGTH) 500 mg tablet Take 1 tablet by mouth every 8 hours as needed for Pain. - aspirin 81 mg chewable tablet Take 81 mg by mouth once edmond ly. - carvedilol (COREG) 12.5 mg tablet Take 12.5 mg by mouth tw ice daily. No current facility-administered medications on file prior t o visit. Social History Social History Tobacco Use - Smoking status: Former Smoker Packs/day: 0.75 Years: 1.00 Pack years: 0.75 Types: Cigarettes Quit date: 08/25/1972 Years since quittin.7 - Smokeless tobacco: Never Used Substance Use Topics - Alcohol use: Yes Comment: Rare mixed drink - Drug use: No Review of Symptoms REVIEW OF SYSTEMS GENERAL: No weight loss, malaise or fevers RESPIRATORY: Negative for cough, hemoptysis, wheezing, COPD, dyspnea or shortness of breath CARDIOVASCULAR: Negative for chest pain, leg swelling, hyper tension, CHF or palpitations GI: No nausea, vomiting, or diarrhea SKIN: Negative for lesions, rash, and itching EXAM: BP 136/84 Pulse 66 Resp 16 Wt 125.2 kg (276 lb) SpO2 95% BMI 51.31 kg/m? General Appearance: Well appearing, alert, in no acute distr ess, well-hydrated, well nourished.. Skin: Skin color, texture, turgor normal, no suspicious rash es or lesions. Lungs: Lungs clear to auscultation. No wheezing, rhonchi, ra les.. Heart: RRR without murmur, gallop, or rubs. No ectopy. Abdomen: Normal abdominal exam, Abdomen soft, non-tender. Logan wel sounds normal. No masses, organomegaly. Extremities: No deformities, edema, skin discoloration, club radha or cyanosis. Good capillary refill. Musculoskeletal: Normal ROM of fingers bilaterally. Left mid dle finger not sticking during exam. 5/5 art teacher strength bilaterally. Feet: Shoes and socks removed, No deformities, ulcers, callu ses, normal distal pulses and sensitive to 10 gm monofilament Health Maintenance List BP CONTROLLED (<130/80) due on 1969 FECAL OCCULT BLOOD due on 2001 SHINGRIX VACCINE(1 of 2) due on 2001 ADVANCE DIRECTIVE DISCUSSION due on 2016 DIABETIC FOOT EXAM due on 12/08/2019 DILATED RETINAL EXAM due on 01/04/2020 MAMMOGRAM due on 07/12/2020 HBA1C due on 11/07/2020 ANNUAL PCP TEAM CHRONIC DISEASE VISIT due on 01/22/2021 URINE ALBUMIN:CREATININE RATIO due on 05/07/2021 LDL CHOLESTEROL due on 05/07/2021 PNEUMOVAX AGE 65 AND OVER WITH 5YR LOOKBACK(1) due on 2020 DTAP,TDAP,TD(2 - Td) due on 04/15/2027 BONE DENSITY Completed INFLUENZA Completed HEPATITIS C SCREENING Completed MENINGOCOCCAL CONJUGATE Completed Data reviewed Component Latest Ref Rng AND Units 11/29/2018 08/17/2019 020 02/15/2020 05/07/2020 WBC 3.70 - 11.00 k/uL 9.62 9.28 RBC 3.90 - 5.20 m/uL 4.36 4.72 Hemoglobin 11.5 - 15.5 g/dL 12.1 12.6 Hematocrit 36.0 - 46.0 % 37.8 39.7 MCV 80.0 - 100.0 fL 86.7 84.1 MCH 26.0 - 34.0 pG 27.8 26.7 MCHC 30.5 - 36.0 g/dL 32.0 31.7 RDW-CV 11.5 - 15.0 % 13.6 15.0 Platelet Count 150 - 400 k/uL 336 344 MPV 9.0 - 12.7 fL 9.9 10.0 Neut% % 58.5 64.8 Abs Neut (ANC) 1.45 - 7.50 k/uL 5.62 6.01 Lymph% % 26.4 22.4 Abs Lymph 1.00 - 4.00 k/uL 2.54 2.08 [place]% % 11.4 9.1 Abs [place] <0.87 k/uL 1.10 (H) 0.84 Eosin% % 3.3 3.3 Abs Eosin <0.46 k/uL 0.32 0.31 Baso% % 0.4 0.4 Abs Baso <0.11 k/uL 0.04 0.04 Nucleated Reds 0 /100 WBC 0.0 0.0 Absolute nRBC <0.01 k/uL <0.01 <0.01 Diff Type Auto Diff Auto Diff Protein, Total 6.3 - 8.0 g/dL 7.1 7.1 7.4 Albumin 3.9 - 4.9 g/dL 4.0 4.1 4.2 Calcium 8.5 - 10.2 mg/dL 9.0 9.7 9.7 Bilirubin, Total 0.2 - 1.3 mg/dL 0.5 0.4 0.5 Alkaline Phosphatase 34 - 123 U/L 64 64 65 AST 13 - 35 U/L 17 22 27 Glucose 74 - 99 mg/dL 198 (H) 154 (H) 116 (H) BUN 7 - 21 mg/dL 12 21 12 Creatinine 0.58 - 0.96 mg/dL 0.73 0.88 0.81 Sodium 136 - 144 mmol/L 138 139 140 Potassium 3.7 - 5.1 mmol/L 4.0 3.9 4.4 Chloride 97 - 105 mmol/L 103 103 102 CO2 22 - 30 mmol/L 24 26 24 Anion Gap 9 - 18 mmol/L 11 10 14 ALT 7 - 38 U/L 12 23 21 eGFR- >60 >60 >60 eGFR-All Other Races . >60 >60 >60 WBC, [place] 3.70 - 11.00 k/uL 8.33 RBC, [place] 3.90 - 5.20 m/uL 4.05 Hemoglobin, [place] 11.5 - 15.5 g/dL 12.2 Hematocrit, [place] 36.0 - 46.0 % 37.0 MCV, [place] 80.0 - 100.0 fL 91.4 MCH, [place] 26.0 - 34.0 pg 30.1 MCHC, [place] 30.5 - 36.0 g/dL 33.0 RDW, [place] 11.5 - 15.0 % 14.9 Platelet Cnt, [place] 150 - 400 k/uL 326 MPV, [place] 9.0 - 12.7 fL 9.6 Absol Gran Count 1.45 - 7.50 k/uL 5.44 Total Cholesterol, Nonfasting <200 mg/dL 159 Triglycerides, Nonfasting <150 mg/dL 121 HDL Cholesterol, Nonfasting >39 mg/dL 63 LDL Cholesterol, Nonfasting <100 mg/dL 72 Non HDL Cholesterol, Nonfasting <130 mg/dL 96 VLDL Cholesterol, Nonfasting <30 mg/dL 24 Total Chol/HDL Ratio, Nonfasting <5.10 mg/dL 2.52 LDL/HDL Ratio, Nonfasting <2.54 mg/dL 1.14 Creatinine, Ur Random (UCRR) 20 - 300 mg/dL 162.8 Albumin, Urine Random mg/L <12.0 Albumin/Creat Ratio <30 mg/g Not calculated Hemoglobin A1C 4.3 - 5.6 % 6.2 (H) 6.6 (H) Estimated Average Glucose mg/dL 131 143 LD 135 - 214 U/L 154 154 Ferritin 14.7 - 205.1 ng/mL 50.5 ASSESSMENT/PLAN: 1. Trigger middle finger of left hand - ICD9: 727.03, ICD10: M65.332 (primary diagnosis) Discussed use of ice and gentle stretching. Will refer to or tho for evaluation for injection vs surgical intervention. - CONSULT TO ORTHOPAEDICS 2. Moderate episode of recurrent major depressive disorder ( HCC) - ICD9: 296.32, ICD10: F33.1 Uncontrolled. Increase prozac to 60 mg daily. Refusing couns eling. Call in 4 weeks if symptoms not improving. F/u in 3 months. - FLUOXETINE 20 MG CAPSULE 3. Type 2 diabetes mellitus without complication, without lo ng-term current use of insulin (HCC) - ICD9: 250.00, ICD10: E11.9 Controlled. - Continue current medications - Blood glucose monitoring on a once a day schedule - Encouraged regular aerobic exercise and weight loss - Daily Asprin therapy recommended - Follow up in 3 months, sooner should any other issues deshawn sánchez. - Discussed diabetic education issues of termite helper diabetic complications, hypoglycemic symptoms, hyperglycemic symptoms , diet, medications- side effects and need for compliance and import ance of exercise with patient. - METFORMIN ER 500 MG TABLET,EXTENDED RELEASE 24 HR - SIMVASTATIN 20 MG TABLET 4. Essential hypertension - ICD9: 401.9, ICD10: I10 - good control - Continue current medication(s) - Encouraged dietary sodium restriction/DASH diet - Recommended regular aerobic exercise. - Reviewed risks of HTN and principles of treatment - Goal of BP <140/90 - AMLODIPINE 10 MG TABLET 5. Obstructive sleep apnea syndrome - ICD9: 327.23, ICD10: G 47.33 Controlled on Bipap 6. Morbid obesity with BMI of 50.0-59.9, adult (HCC) - ICD9: 278.01, V85.43, ICD10: E66.01, Z68.43 Stable - Behavioral intervention I spent 35 minutes in the visit, with more than 50% of the t otal [id number] time of the visit in counseling / coordination of care. Jon Valenzuela MD cnov on 2020-05-21 CNOV Office Visit (FAMPWS) Normal 05-21-20 [facility] BRI JIMÉNEZ ([id number]) 1950 [facility] Date Time Provider Department ([id number]) 05/21/20 4:20 PM JON VALEN[facility]UELA[facility] During your visit today, we recorded the following informati on about you: Pulse Respiration Blood pressure Weight 66/minute 16/minute 136/84 125.2 kg Jon Valenzuela MD 05/21/2020 5:31 PM Signed Chief Complaint Patient presents with: F/U 3 months HPI Bri Jiménez is a 69 year old female who presents here today for 3 month follow up. C/o numbness in left middle finger with occasional epi sodes where her finger gets stuck in flexion. Has to massage and then slowly work i t back out to straighten it. Has some numbness associa darby with it. Denies weakness or recent injury. DIABETES MELLITUS: Ms. Jiménez was last seen 3 mon ths ago. Since our last visit she denies excessive thirst or increased frequency of urinat ion, numbness, tingling or pain in extremities, new or unusual visual sympt oms and low sugar/hypoglycemic reactions. Follows a diabetic diet generally not very much. She is compliant with medication(s) and is jaun ating med(s) without any side effects. She reports checking her glucose on a once a day sc hedule with sugars in the fasting 120-155 range. Patient's last HgA1C wa s Hemoglobin A1C (%) Date Value 05/07/2020 6.6 11/29/2018 6.2 ) Last Ophthalmology exam was within the past 3 months-Dr. Anderson's office. No DM changes Last Podiatry exam was more than 12 months ago Depression symptoms uncontro lled with stressors from COVID, being unable to see family, recent deaths in the family. C/o decreased energy/in terest, sleep disturbance, feeling down, decreased appetite, occasional thoughts that she doesn't want to be around anymore. Denies SI/HI. Takin g Prozac as prescribed without side effects. JAJA: using Bipap nightly and is working well. Waking u p feeling well rested. Denies headaches. 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 Past medical history, appointments, medications, allergies r helne. 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 Leiva-hematology/oncology. - Cataracts, bilateral - Depression - Diabetes (HCC) Type II - Environmental allergies ??? - Fibromyalgia - Hypertension - Morbid obesity (HCC) 01/06/2017 BMI 50.3 - Neuropathy - JAJA (obstructive sleep apnea) Bipap - Osteopenia - Thrombocytosis (HCC) Seeing Dr. Leiva; on hydroxyurea and blood thinners - TIA (transient ischemic attack) 04/26/2016 TIA - Uterine cancer (HCC) 1985 hysterectomy Previous Surgical History PAST SURGICAL HISTORY Procedure Laterality Date - CATARACT EXTRACTION W/ INTRAOCULAR LENS IMPLANT HX Left - CATARACT EXTRACTION W/ INTRAOCULAR LENS IMPLANT HX Right 1 10/26/2016 - PAST SURGICAL HISTORY OF Tonsillectomy - PAST SURGICAL HISTORY OF Left knee surgery - PAST SURGICAL HISTORY OF 05/17/1975 - PAST SURGICAL HISTORY OF Ganglion cyst removed from left hand - PAST SURGICAL HISTORY OF Cyst removed from right wrist - PAST SURGICAL HISTORY OF 1983 Hysterectomy - PAST SURGICAL HISTORY OF Oily deposits removed from scalp - PAST SURGICAL HISTORY OF laser surgery for abnormal cells after hysterectomy - THORACOSCOPY W/DX WEDGE RESEXN ANATO LUNG RESEXN Left 12/12 VATS left lower lung wedge resection of carcinoid tumor Family History FAMILY HISTORY Problem Relation Age of Onset - Diabetes Mother - Cataract Mother - other (HTN) Mother - Diabetes Sister - other (CHF) Sister - Cancer Sister d/t brain cancer - other (Borderline Diabetes) Sister - other (Tuberculosis) Brother d/t TB @ 10 months Patient Allergies ALLERGIES Allergen Reactions - Lisinopril Cough - Seasonal Allergies Intolerance Current Medications Current Outpatient Medications on File Prior to Visit Medication Sig - losartan (COZAAR) 25 mg tablet Take 1 tablet by mouth once daily. - hydrOXYzine HCl (ATARAX) 2 5 mg tablet Take 1 tablet by mouth every 8 hours as needed. - metFORMIN ER (GLUCOPHAGE XR) 500 mg 24 hr tablet Take 2 ta blets by mouth twice daily before meals. - amLODIPine (NORVASC) 10 mg tablet Take 1 tablet by mouth o nce daily. - simvastatin (ZOCOR) 20 mg tablet Take 1 tablet by mouth daily at bedtime. - albuterol (PROVENTIL) 2.5 mg /3 mL (0. 083 %) nebulizer solution Use 3 mL via nebulizer every 6 hours as needed. OVER 5-15 MINUTES. FOR WH EEZING AND SHORTNESS OF BREATH. - FLUoxetine HCl (PROZAC) 40 mg capsule Take 1 capsule by mouth once daily. - alendronate (FOSAMAX) 70 mg tablet Take 1 tablet by mout h once each week. - CALCIUM CARBONATE/VITAMIN D3 (CALCIUM + D ORAL) Take 2 tablets by mouth once daily. - acetaminophen (TYLENOL EXTRA STRENGTH) 500 mg tablet Take 1 tablet by mouth every 8 hours as needed for Pain. - aspirin 81 mg chewable tablet Take 81 mg by mouth once edmond ly. - carvedilol (COREG) 12.5 mg tablet Take 12.5 mg by mouth tw ice daily. No current facility-administered medications on file prior t o visit. Social History Social History Tobacco Use - Smoking status: Former Smoker Packs/day: 0.75 Years: 1.00 Pack years: 0.75 Types: Cigarettes Quit date: 08/25/1972 Years since quittin.7 - Smokeless tobacco: Never Used Substance Use Topics - Alcohol use: Yes Comment: Rare mixed drink - Drug use: No Review of Symptoms REVIEW OF SYSTEMS GENERAL: No weight loss, malaise or fevers RESPIRATORY: Negative for cough, hemoptysis, wheezing, COPD, dyspnea or shortness of breath CARDIOVASCULAR: Negative for chest pain, leg swelling, hyp ertension, CHF or palpitations GI: No nausea, vomiting, or diarrhea SKIN: Negative for lesions, rash, and itching EXAM: BP 136/84 Pulse 66 Resp 16 Wt 125.2 kg (276 lb) SpO2 95% BMI 51.31 kg/m? General Appearance: Well [place] earing, alert, in no acute distress, well-hydrated, well nourished.. Skin: Skin color, texture, turgor normal, no suspicious rash es or lesions. Lungs: Lungs clear to auscultation. No wheezing, rhonchi, ra les.. Heart: RRR without murmur, gallop, or rubs. No ectopy. Abdomen: Normal abdominal exam, Abdomen soft, non-tender. Bowel sounds normal. No masses, organomegaly. Extremities: No deformities, edema, skin discolo ration, clubbing or cyanosis. Good capillary refill. Musculoskeletal: Normal ROM of fingers bilaterally. Left mid dle finger not sticking during exam. 5/5 art teacher strength bilaterally. Feet: Shoes and socks removed, No deform ities, ulcers, calluses, normal distal pulses and sensitive to 10 gm monofilament Health Maintenance List BP CONTROLLED (<130/80) due on 1969 FECAL OCCULT BLOOD due on 2001 SHINGRIX VACCINE(1 of 2) due on 2001 ADVANCE DIRECTIVE DISCUSSION due on 2016 DIABETIC FOOT EXAM due on 12/08/2019 DILATED RETINAL EXAM due on 01/04/2020 MAMMOGRAM due on 07/12/2020 HBA1C due on 11/07/2020 ANNUAL PCP TEAM CHRONIC DISEASE VISIT due on 01/22/2021 URINE ALBUMIN:CREATININE RATIO due on 05/07/2021 LDL CHOLESTEROL due on 05/07/2021 PNEUMOVAX AGE 65 AND OVER WITH 5YR LOOKBACK(1) due on 2020 DTAP,TDAP,TD(2 - Td) due on 04/15/2027 BONE DENSITY Completed INFLUENZA Completed HEPATITIS C SCREENING Completed MENINGOCOCCAL CONJUGATE Completed Data reviewed Component Latest Ref Rng AND Units 11/29/2018 08/17/2019 020 02/15/2020 05/07/2020 WBC 3.70 - 11.00 k/uL 9.62 9.28 RBC 3.90 - 5.20 m/uL 4.36 4.72 Hemoglobin 11.5 - 15.5 g/dL 12.1 12.6 Hematocrit 36.0 - 46.0 % 37.8 39.7 MCV 80.0 - 100.0 fL 86.7 84.1 MCH 26.0 - 34.0 pG 27.8 26.7 MCHC 30.5 - 36.0 g/dL 32.0 31.7 RDW-CV 11.5 - 15.0 % 13.6 15.0 Platelet Count 150 - 400 k/uL 336 344 MPV 9.0 - 12.7 fL 9.9 10.0 Neut% % 58.5 64.8 Abs Neut (ANC) 1.45 - 7.50 k/uL 5.62 6.01 Lymph% % 26.4 22.4 Abs Lymph 1.00 - 4.00 k/uL 2.54 2.08 [place]% % 11.4 9.1 Abs [place] <0.87 k/uL 1.10 (H) 0.84 Eosin% % 3.3 3.3 Abs Eosin <0.46 k/uL 0.32 0.31 Baso% % 0.4 0.4 Abs Baso <0.11 k/uL 0.04 0.04 Nucleated Reds 0 /100 WBC 0.0 0.0 Absolute nRBC <0.01 k/uL <0.01 <0.01 Diff Type Auto Diff Auto Diff Protein, Total 6.3 - 8.0 g/dL 7.1 7.1 7.4 Albumin 3.9 - 4.9 g/dL 4.0 4.1 4.2 Calcium 8.5 - 10.2 mg/dL 9.0 9.7 9.7 Bilirubin, Total 0.2 - 1.3 mg/dL 0.5 0.4 0.5 Alkaline Phosphatase 34 - 123 U/L 64 64 65 AST 13 - 35 U/L 17 22 27 Glucose 74 - 99 mg/dL 198 (H) 154 (H) 116 (H) BUN 7 - 21 mg/dL 12 21 12 Creatinine 0.58 - 0.96 mg/dL 0.73 0.88 0.81 Sodium 136 - 144 mmol/L 138 139 140 Potassium 3.7 - 5.1 mmol/L 4.0 3.9 4.4 Chloride 97 - 105 mmol/L 103 103 102 CO2 22 - 30 mmol/L 24 26 24 Anion Gap 9 - 18 mmol/L 11 10 14 ALT 7 - 38 U/L 12 23 21 eGFR- >60 >60 >60 eGFR-All Other Races . >60 >60 >60 WBC, [place] 3.70 - 11.00 k/uL 8.33 RBC, [place] 3.90 - 5.20 m/uL 4.05 Hemoglobin, [place] 11.5 - 15.5 g/dL 12.2 Hematocrit, [place] 36.0 - 46.0 % 37.0 MCV, [place] 80.0 - 100.0 fL 91.4 MCH, [place] 26.0 - 34.0 pg 30.1 MCHC, [place] 30.5 - 36.0 g/dL 33.0 RDW, [place] 11.5 - 15.0 % 14.9 Platelet Cnt, [place] 150 - 400 k/uL 326 MPV, [place] 9.0 - 12.7 fL 9.6 Absol Gran Count 1.45 - 7.50 k/uL 5.44 Total Cholesterol, Nonfasting <200 mg/dL 159 Triglycerides, Nonfasting <150 mg/dL 121 HDL Cholesterol, Nonfasting >39 mg/dL 63 LDL Cholesterol, Nonfasting <100 mg/dL 72 Non HDL Cholesterol, Nonfasting <130 mg/dL 96 VLDL Cholesterol, Nonfasting <30 mg/dL 24 Total Chol/HDL Ratio, Nonfasting <5.10 mg/dL 2.52 LDL/HDL Ratio, Nonfasting <2.54 mg/dL 1.14 Creatinine, Ur Random (UCRR) 20 - 300 mg/dL 162.8 Albumin, Urine Random mg/L <12.0 Albumin/Creat Ratio <30 mg/g Not calculated Hemoglobin A1C 4.3 - 5.6 % 6.2 (H) 6.6 (H) Estimated Average Glucose mg/dL 131 143 LD 135 - 214 U/L 154 154 Ferritin 14.7 - 205.1 ng/mL 50.5 ASSESSMENT/PLAN: 1. Trigger middle finger of left hand - ICD9: 72 7.03, ICD10: M65.332 (primary diagnosis) Discussed use of ice and gentle stretchi ng. Will refer to ortho for evaluation for injection vs surgical intervention. - CONSULT TO ORTHOPAEDICS 2. Moderate episode of recurrent major depressive disorder ( HCC) - ICD9: 296.32, ICD10: F33.1 Uncontrolled. Increase prozac to 60 mg daily. Refusing counseling. Call in 4 weeks if symptoms not improving. F/u in 3 months. - FLUOXETINE 20 MG CAPSULE 3. Type 2 diabetes mellitus without complication, without long-term current use of insulin (HCC) - ICD9: 250.00, ICD10: E11.9 Controlled. - Continue current medications - Blood glucose monitoring on a once a day schedule - Encouraged regular aerobic exercise and weight loss - Daily Asprin therapy recommended - Follow up in 3 months, sooner should any other issues deshawn e. - Discussed diabetic education issues of termite helper diabetic complications, hypoglycemic symptoms, hyperglycemic sym ptoms, diet, medications- side effects and need for compliance and importance of exercise with sowmya ent. - METFORMIN ER 500 MG TABLET,EXTENDED RELEASE 24 HR - SIMVASTATIN 20 MG TABLET 4. Essential hypertension - ICD9: 401.9, ICD10: I10 - good control - Continue current medication(s) - Encouraged dietary sodium restriction/DASH diet - Recommended regular aerobic exercise. - Reviewed risks of HTN and principles of treatment - Goal of BP <140/90 - AMLODIPINE 10 MG TABLET 5. Obstructive sleep apnea syndrome - ICD9: 327.23, ICD10: G 47.33 Controlled on Bipap 6. Morbid obesity with BMI of 50.0-59.9, adult ([facility]) - ICD9: 278.01, V85.43, ICD10: E66.01, Z68.43 Stable - Behavioral intervention I spent 35 minutes in the visit, with more than 50% of the total hbjr-pr-[id number] time of the visit in counseling / coordination of care. Jon Valenzuela MD Referring Provider: SELF [200] Allergies As of Date: 05/21/2020 Noted Allergy Reaction LISINOPRIL 10/20/2019 3 - Cough SEASONAL ALLERGIES 05/11/2016 5 - Intolerance Date Reviewed: 02/15/2020 Reviewed by: Elizabeth Ritchie, RN, RN - Fully Assessed Reason for Visit: F/U 3 months [1176] Primary Visit Diagnosis:Trigger middle finger of left hand [ M65.332] Other Visit Diagnoses:Moderate episode of recurr ent major depressive disorder (HCC) [F33.1] Type 2 diabetes mellitus without complication, without long-term current use of insulin (HCC) [E11.9] Essential hypertension [I10] Obstructive sleep apnea syndrome [G47.33] Morbid obesity with BMI of 50.0-59.9, adult ([facility]) [E66.01, Z68.43] Order(s):hydrOXYzine HCl (ATARAX) 25 mg tabletTake 1 t ablet by mouth every 8 hours as needed.Disp: 90 tabletRfl: 1 metFORMIN ER (GLUCOPHAGE XR) 500 mg 24 hr tabletTake 2 table ts by mouth twice daily before meals.Disp: 360 tabletRfl: 1 amLODIPine (NORVASC) 10 mg tabletTake 1 tablet by mouth once daily.Disp: 90 tabletRfl: 1 simvastatin (ZOCOR) 20 mg tabletTake 1 tablet by mouth daily at bedtime.Disp: 90 tabletRfl: 1 FLUoxetine HCl (PROZAC) 20 mg capsuleTake 3 capsules by mout h once daily.Disp: 90 capsuleRfl: 2 alendronate (FOSAMAX) 70 mg tabletTake 1 tablet by mouth one time a week.Disp: 12 tabletRfl: 3 clotrimazole (LOTRIMIN, CLOTRIM) 1 % creamApply to affected area twice daily for 14 days.Disp: 24 gRfl: 1 CONSULT TO ORTHOPAEDICS [9044] Order #: [id number]: 1 FUT URE Prescriptions as of 05/21/2020 Sig: LOSARTAN 25 MG TABLET Take 1 tablet by mouth once d* ALBUTEROL SULFATE 2.5 MG/3 ML* Use 3 mL via nebulizer every * CALCIUM + D ORAL Take 2 tablets by mouth once * ACETAMINOPHEN 500 MG TABLET Take 1 tablet by mouth every * ASPIRIN 81 MG CHEWABLE TABLET Take 81 mg by mouth once jl* HYDROXYZINE HCL 25 MG TABLET Take 1 tablet by mouth every * METFORMIN ER 500 MG TABLET,EX* Take 2 tablets by mouth twice * AMLODIPINE 10 MG TABLET Take 1 tablet by mouth once d* SIMVASTATIN 20 MG TABLET Take 1 tablet by mouth daily * FLUOXETINE 20 MG CAPSULE Take 3 capsules by mouth once* ALENDRONATE 70 MG TABLET Take 1 tablet by mouth one ti* CLOTRIMAZOLE 1 % TOPICAL CREAM Apply to affected area twice * CARVEDILOL 12.5 MG TABLET Take 12.5 mg by mouth twice d* Problem List As Of Date 05/21/2020 Noted Resolved 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 Transient cerebral ischemia [G45.9] 05/11/2016 More... Essential hypertension [I10] 05/11/2016 More... Hypercholesteremia [E78.00] 05/11/2016 Type 2 diabetes mellitus, without long-term cur*05/11/2016 More... 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 DISPOSITION AND FOLLOW-UP 01/07/2017 01/09/2017 More... Mechanical venous thromboembolism (VTE) prophyl*01/07/2017 0 01/09/2017 More... Pain, postoperative, acute [G89.18] 01/07/2017 01/21/2020 More... Morbid obesity with BMI of 50.0-59.9, adult (HC*01/07/2017 More... Obstructive sleep apnea syndrome [G47.33] 01/07/2017 More... Osteopenia [M85.80] Status post cataract extraction and insertion o*08/10/2017 History of lung cancer [Z85.118] 08/16/2017 Status post cataract extraction and insertion o*08/26/2017 Type 2 diabetes mellitus without retinopathy (H*01/03/2018 0 01/21/2020 Vitreous floaters of both eyes [H43.393] 01/03/2018 Pseudophakia of both eyes [Z96.1] 01/03/2018 BPPV (benign paroxysmal positional vertigo) [H8*03/21/2018 Type 2 diabetes mellitus with diabetic neuropat* Dermatochalasis of both upper eyelids [H02.831,*01/03/2019 Prescriptions ordered this encounter Disp Refills Start End HYDROXYZINE HCL 25 MG TABLET 90 t* 1 05/21/2020 Route: ORAL Sig: Take 1 tablet by mouth every 8 hours as needed. METFORMIN ER 500 MG TABLET,EXTENDED * 360 * 1 05/21/2020 Route: ORAL Sig: Take 2 tablets by mouth twice daily before meals. AMLODIPINE 10 MG TABLET 90 t* 1 05/21/2020 Route: ORAL Sig: Take 1 tablet by mouth once daily. SIMVASTATIN 20 MG TABLET 90 t* 1 05/21/2020 Route: ORAL Sig: Take 1 tablet by mouth daily at bedtime. FLUOXETINE 20 MG CAPSULE 90 c* 2 05/21/2020 Route: ORAL Sig: Take 3 capsules by mouth once daily. ALENDRONATE 70 MG TABLET 12 t* 3 05/21/2020 Route: ORAL Sig: Take 1 tablet by mouth one time a week. CLOTRIMAZOLE 1 % TOPICAL CREAM 24 g 1 05/21/2020 06/04/2020 Route: TOPICAL Sig: Apply to affected area twice daily for 14 days. Medications Discontinued During This Encounter Prescriptions - alendronate (FOSAMAX) 70 mg tablet (Discontinued) Take 1 tablet by mouth once each week. - FLUoxetine HCl (PROZAC) 40 mg capsule (Discontinued) Take 1 capsule by mouth once daily. - simvastatin (ZOCOR) 20 mg tablet (Discontinued) Take 1 tablet by mouth daily at bedtime. - amLODIPine (NORVASC) 10 mg tablet (Discontinued) Take 1 tablet by mouth once daily. - metFORMIN ER (GLUCOPHAGE XR) 500 mg 24 hr tablet (Disconti nued) Take 2 tablets by mouth twice daily before meals. - hydrOXYzine HCl (ATARAX) 25 mg tablet (Discontinued) Take 1 tablet by mouth every 8 hours as needed. Disposition: Return in about 3 months (around 08/20/2020) for virtual visit. Follow-up and Disposition History Recorded Encounter Status:Closed by JON VALENZUELA MD on 05/21/20 lipid panel, nonfast on 2020-05-07 Cholesterol [Mass/Vol] 159 <200 mg/dL Normal 020 [facility] [place] ([id number]) Comment: Result Comment: <200 mg/dL, Desirable 200-239 mg/dL, Borderline hi gh >239 mg/dL, High Performed By: #### HBA1C, CM P, LIPNF #### [facility] [address] [place] [id number] Cholesterol in 1.14 <2.54 mg/dL Normal 05-07-2020 [facility] LDL/Cholesterol in HDL [[place] ([address]) ratio] Comment: Result Comment: Reference: 1. National Cholesterol Educ ation Program ATP III Guideline At-A-Glance Quick Desk Reference: National Heart, Lung, and Blood [place]. National Institutes of Health. 2001: NIH Publication No. 01-3305. 2. An International Atherosc lerosis Society position paper: global recommendations for the management of dyslipidemia: executive summary, Atherosclerosis. 2014: 232(2):410-413. Performed By: #### HBA1C, CM P, LIPNF #### [facility] [address] [place] [address] Cholesterol.total/Cholesterol in 2.52 <5.10 mg/dL Normal 05-07-2020 [facility] HDL [Mass ratio] [facility] ([id number]) Comment: Performed By: #### HBA1C, CM P, LIPNF #### [facility] [address] [place] [address] HDL Cholesterol, NF 63 >39 mg/dL Normal 05-07-2020 [facility] [place] ([id number]) Comment: Result Comment: 40-59 mg/dL, Acceptable >59 mg/dL, High: Negative ri sk factor for coronary heart disease <40 mg/dL, Low: Positive ris k factor for coronary heart disease Performed By: #### HBA1C, CM P, LIPNF #### [facility] [address] [place], [place] [address] LDL Cholesterol, NF 72 <100 mg/dL Normal 05-07-2020 [facility] [place] ([id number]) Comment: Result Comment: <100 mg/dL, Optimal 100-129 mg/dL, Near optimal/ above optimal 130-159 mg/dL, Borderline hi gh 160-189 mg/dL, High >189 mg/dL, Very high Secondary prevention optimal LDL Cholesterol levels are recommended to be < 70 mg/dL Performed By: #### HBA1C, CM P, LIPNF #### [facility] [address] [place] [address] Non HDL Chol, NF 96 <130 mg/dL Normal 05-07-2020 [facility] ([address]) Comment: Result Comment: <130 mg/dL, Optimal 130-159 mg/dL, Near optimal/ above optimal 160-189 mg/dL, Borderline hi gh 190-219 mg/dL, High >219 mg/dL, Very high Secondary prevention optimal non HDL Cholesterol levels are recommended to be < 100 mg/dL Performed By: #### HBA1C, CM P, LIPNF #### [facility] [address] [place] [address] Triglycerides, NF 121 <150 mg/dL Normal 05-07-2020 [facility] ([id number]) Comment: Result Comment: <150 mg/dL, Normal 150-199 mg/dL, Borderline hi gh 200-499 mg/dL, High >499 mg/dL, Very high Performed By: #### HBA1C, CM P, LIPNF #### [facility] [address] [place] [address] VLDL Cholesterol, NF 24 <30 mg/dL Normal 0 [facility] [place] ([id number]) Comment: Performed By: #### HBA1C, CM P, LIPNF #### [place] [address] [place] [address] hemoglobin a1c on 2 HbA1c (Bld) [Mass fraction] 6.6 4.3-5.6 % High [facility] [place] ([address]) Comment: Result Comment: [place] June betes Association guidelines indicate that patients with HgbA1c in the range 5.7-6.4% are at increased risk for development of diabetes, and intervention by lifestyle modification may be beneficial. HgbA1c greater o r equal to 6.5% is considered diagnostic of diabetes. Performed By: #### HBA1C, CM P, LIPNF #### [facility] [address] [place], [place] [address] HbA1c (Bld) [Mass fraction] 143 mg/dL Normal [facility] [place] ([address]) Comment: Result Comment: eAG: (Estima darby average glucose) is a calculated value from HgbA1c and is district sales representative of the average blood glucose level in the last 2-3 month period. Performed By: #### HBA1C, CM P, LIPNF #### [place] [address] comp metabolic panel on 2020-05-07 Albumin [Mass/Vol] 4.2 3.9-4.9 g/dL Normal 05-07-2020 [facility] [place] ([id number]) Comment: Performed By: #### HBA1C, CM P, LIPNF #### [place] [address] ALP [Catalytic activity/Vol] 65 34-123 U/L Normal 0 05-07-2020 [facility] [place] ([address]) Comment: Performed By: #### HBA1C, CM P, LIPNF #### [place] [address] ALT [Catalytic activity/Vol] 21 7-38 U/L Normal 0 05-07-2020 [facility] [place] ([address]) Comment: Performed By: #### HBA1C, CM P, LIPNF #### [address] [address] Anion gap [Moles/Vol] 14 9-18 mmol/L Normal 05-07-20 20 [facility] [place] ([address]) Comment: Performed By: #### HBA1C, CM P, LIPNF #### [place] [id number] AST [Catalytic activity/Vol] 27 13-35 U/L Normal 0 05-07-2020 [facility] [place] ([address]) Comment: Performed By: #### HBA1C, CM P, LIPNF #### [address] [address] Bilirubin [Mass/Vol] 0.5 0.2-1.3 mg/dL Normal 0 [facility] [place] ([address]) Comment: Performed By: #### HBA1C, CM P, LIPNF #### [facility] [address] [place], [place] [address] Calcium [Mass/Vol] 9.7 8.5-10.2 mg/dL Normal 05-07-2020 [facility] [place] ([address]) Comment: Performed By: #### HBA1C, CM P, LIPNF #### [facility] [address] [place] [address] Chloride [Moles/Vol] 102 97-105 mmol/L Normal 0 [facility] [place] ([address]) Comment: Performed By: #### HBA1C, CM P, LIPNF #### [place] [address] [place] [address] CO2 [Moles/Vol] 24 22-30 mmol/L Normal 05-07-2020 [facility] ([address]) Comment: Performed By: #### HBA1C, CM P, LIPNF #### [facility] [address] [place] [address] Creatinine [Mass/Vol] 0.81 0.58-0.96 mg/dL Normal 05-07-20 20 [facility] [place] ([address]) Comment: Performed By: #### HBA1C, CM P, LIPNF #### [facility] [address] [place] [address] eGFR- Amer. >60 Normal 05-07-2020 [facility] [place] ([address]) Comment: Performed By: #### HBA1C, CM P, LIPNF #### [facility] [address] [place] [address] GFR/1.73 sq M predicted >60 mL/min/{1.73_m2} Normal 05-07-2020 [facility]bl[facility] ([id number]) (S/P/Bld) [Vol rate/Area] Comment: Result Comment: eGFR (Estima darby GFR) Units of measure: mL/min/1.73 meters squared eGFR is derived from the ree xpressed MDRD Study equation using the following parameters: serum creatinine, age, gender and race. The creatinine assay has been calibrated to be traceable to IDMS. An eGFR <60 mL/min/1.73m2 fo r >3 months is consistent with chronic kidney disease. Refer to KDOQI guidelines for clinical interpretation. In patients with unstable re nal function, e.g. those with acute kidney injury, the eGFR may not accurately reflect actual GFR. Performed By: #### HBA1C, CM P, LIPNF #### [facility] [address] [place], [place] [address] Glucose [Mass/Vol] 116 74-99 mg/dL High 05-07-2020 [facility] [place] ([address]) Comment: Result Comment: The [place] Diabetes Association (ADA) provides guidance for cutoff values for fasting glucose and random glucose. The ADA defines fasting as no caloric intake for at least 8 hours. Fas ting plasma glucose results between 100 to 125 mg/dL indicate increased risk for diabetes (prediabetes). Fasting plasma glucose resul ts greater than or equal to 126 mg/dL meet the criteria for diagnosis of diabetes. In the absence of unequivocal hyperglycemia, results should be confirmed by repeat testing. In a patient with classic s ymptoms of hyperglycemia or hyperglycemic crisis, random plasma glucose results greater than or equal to 200 mg/dL meet the criteria for diagnosis of diabetes. Reference: Standards of [facility] Care in Diabetes 2016, [place] Diabetes Association. Diabetes Care. 2016.39(Suppl 1). Performed By: #### HBA1C, CM P, LIPNF #### [facility] [address] [place], [place] [address] Potassium [Moles/Vol] 4.4 3.7-5.1 mmol/L Normal 05-07-20 [facility] [place] ([address]) Comment: Performed By: #### HBA1C, CM P, LIPNF #### [facility] [address] [place], [place] [address] Protein [Mass/Vol] 7.4 6.3-8.0 g/dL Normal 05-07-2020 [facility] [place] ([address]) Comment: Performed By: #### HBA1C, CM P, LIPNF #### [facility] [address] [place] [address] Sodium [Moles/Vol] 140 136-144 mmol/L Normal 05-07-2020 [facility] [place] ([address]) Comment: Performed By: #### HBA1C, CM P, LIPNF #### [place] [address] Urea nitrogen [Mass/Vol] 12 7-21 mg/dL Normal 05-07 [facility] [place] ([address]) Comment: Performed By: #### HBA1C, CM P, LIPNF #### [place] [address] albumin/creat ratio on 2020-05-07 Albumin Urine Random <12.0 Normal 0 [facility] [place] ([address]) Comment: Performed By: #### HBA1C, CM P, LIPNF #### [place] [address] Albumin/Creat Ratio Not calculated <30 Normal 05-07 [facility] [place] ([address]) Comment: Performed By: #### HBA1C, CM P, LIPNF #### [place] [address] Creatinine,Urine,Ran 162.8 20-300 mg/dL Normal 0 [facility] [place] ([address]) Comment: Performed By: #### HBA1C, CM P, LIPNF #### [place] [address] obsolete on 2020-04 OBSOLETE Refill (FAMPWS) Normal 04-17-2020 [facility] BRI JIMÉNEZ ([id number]) 1950 [facility] Time Provider Department ([id number]) 04/17/20 JON VALENZUELA) FAMPWS During your visit today, we recorded the following informati on about you: Mary Carmen Alexander Tej [facility] 04/17/2020 12:27 PM Signed Patient has been identified by name and date of : Yes Last office visit in this department: 10/26/2019 RX INSTRUCTIONS: Patient aware RX will be sent to pharmacy. No need to notify patient. Patient phones requesting refills as follows: Pending Prescriptions Disp Refills LOSARTAN 25 MG TABLET 30 tablet 5 Sig: Take 1 tablet by mouth once daily. REJI: No Please review and advise. Mary Carmen M Tej Bustos [facility] 04/17/2020 3:59 PM Signed Last office visit: 01/23/2020 F/u scheduled: 05/21/2020 Lyndsay Bustos Ma Allergies As of Date: 04/17/2020 Noted Allergy Reaction LISINOPRIL 10/20/2019 3 - Cough SEASONAL ALLERGIES 05/11/2016 5 - Intolerance Date Reviewed: 02/15/2020 Reviewed by: Elizabeth Ritchie, RN, RN - Fully Assessed Reason for Visit: Refill Request [94] Order(s):losartan (COZAAR) 25 mg tabletTake 1 tablet by mout h once daily.Disp: 30 tabletRfl: 5 Prescriptions as of 04/17/2020 Sig: LOSARTAN 25 MG TABLET Take 1 tablet by mouth once d* HYDROXYZINE HCL 25 MG TABLET Take 1 tablet by mouth every * METFORMIN ER 500 MG TABLET,EX* Take 2 tablets by mouth twice * AMLODIPINE 10 MG TABLET Take 1 tablet by mouth once d* SIMVASTATIN 20 MG TABLET Take 1 tablet by mouth daily * CARVEDILOL 12.5 MG TABLET Take 12.5 mg by mouth twice d* ALBUTEROL SULFATE 2.5 MG/3 ML* Use 3 mL via nebulizer every * FLUOXETINE 40 MG CAPSULE Take 1 capsule by mouth once * ALENDRONATE 70 MG TABLET Take 1 tablet by mouth once e* CALCIUM + D ORAL Take 2 tablets by mouth once * ACETAMINOPHEN 500 MG TABLET Take 1 tablet by mouth every * ASPIRIN 81 MG CHEWABLE TABLET Take 81 mg by mouth once jl* Problem List As Of Date 04/17/2020 Noted Resolved 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 Transient cerebral ischemia [G45.9] 05/11/2016 More... Essential hypertension [I10] 05/11/2016 More... Hypercholesteremia [E78.00] 05/11/2016 Type 2 diabetes mellitus, without long-term cur*05/11/2016 More... 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 DISPOSITION AND FOLLOW-UP 01/07/2017 01/09/2017 More... Mechanical venous thromboembolism (VTE) prophyl*01/07/2017 0 01/09/2017 More... Pain, postoperative, acute [G89.18] 01/07/2017 01/21/2020 More... Morbid obesity with BMI of 50.0-59.9, adult (HC*01/07/2017 More... Obstructive sleep apnea syndrome [G47.33] 01/07/2017 More... Osteopenia [M85.80] Status post cataract extraction and insertion o*08/10/2017 History of lung cancer [Z85.118] 08/16/2017 Status post cataract extraction and insertion o*08/26/2017 Type 2 diabetes mellitus without retinopathy (H*01/03/2018 0 01/21/2020 Vitreous floaters of both eyes [H43.393] 01/03/2018 Pseudophakia of both eyes [Z96.1] 01/03/2018 BPPV (benign paroxysmal positional vertigo) [H8*03/21/2018 Type 2 diabetes mellitus with diabetic neuropat* Dermatochalasis of both upper eyelids [H02.831,*01/03/2019 Prescriptions ordered this encounter Disp Refills Start End LOSARTAN 25 MG TABLET 30 t* 5 04/17/2020 Route: ORAL Sig: Take 1 tablet by mouth once daily. Medications Discontinued During This Encounter Prescriptions - losartan (COZAAR) 25 mg tablet (Discontinued) Take 1 tablet by mouth once daily. Encounter Status:Closed by JON VALENZUELA MD on 04/17/20 obsolete on 2020-02 OBSOLETE Refill (FAMPWS) Normal 02-19-2020 [facility] BRI Galindo ([id number]) 1950 [facility] Date Time Provider Department ([id number]) 02/19/20 JON VALENZUELA () FAMPWS During your visit today, we recorded the following informati on about you: Conchis Cloeman 02/19/2020 12:29 PM Signed Patient has been identified by name and date of : Yes Pending Prescriptions Disp Refills HYDROXYZINE HCL 25 MG TABLET 90 tablet 1 Sig: Take 1 tablet by mouth every 8 hours as needed. REJI: No RX INSTRUCTIONS: Patient aware RX will be sent to pharmacy. No need to notify patient. Conchis Bennett Ma 02/19/2020 2:42 PM Signed Patient last visit with PCP 01/23/20 Patient last refill 08/23/2019 with 90 and 1 refills Follow up appointment scheduled none Merly Lyle MD 02/19/2020 2:48 PM Signed The following approved medic ation requests have been transmitted electronically. Signed Prescriptions Disp Refills hydrOXYzine HCl (ATARAX) 25 mg tablet 90 tablet 1 Sig: Take 1 tablet by mouth every 8 hours as needed. REJI: No Authorizing Provider: SONU LYLE MD Allergies As of Date: 02/19/2020 Noted Allergy Reaction LISINOPRIL 10/20/2019 3 - Cough SEASONAL ALLERGIES 05/11/2016 5 - Intolerance Date Reviewed: 02/15/2020 Reviewed by: Elizabeth Ritchie RN, RN - Fully Assessed Reason for Visit: Refill Request [94] Order(s):hydrOXYzine HCl (ATARAX) 25 mg tabletTake 1 t ablet by mouth every 8 hours as needed.Disp: 90 tabletRfl: 1 Prescriptions as of 02/19/2020 Sig: HYDROXYZINE HCL 25 MG TABLET Take 1 tablet by mouth every * METFORMIN ER 500 MG TABLET,EX* Take 2 tablets by mouth twice * AMLODIPINE 10 MG TABLET Take 1 tablet by mouth once d* SIMVASTATIN 20 MG TABLET Take 1 tablet by mouth daily * LOSARTAN 25 MG TABLET Take 1 tablet by mouth once d* CARVEDILOL 12.5 MG TABLET Take 12.5 mg by mouth twice d* ALBUTEROL SULFATE 2.5 MG/3 ML* Use 3 mL via nebulizer every * FLUOXETINE 40 MG CAPSULE Take 1 capsule by mouth once * ALENDRONATE 70 MG TABLET Take 1 tablet by mouth once e* CALCIUM + D ORAL Take 2 tablets by mouth once * ACETAMINOPHEN 500 MG TABLET Take 1 tablet by mouth every * ASPIRIN 81 MG CHEWABLE TABLET Take 81 mg by mouth once jl* Problem List As Of Date 02/19/2020 Noted Resolved 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 Transient cerebral ischemia [G45.9] 05/11/2016 More... Essential hypertension [I10] 05/11/2016 More... Hypercholesteremia [E78.00] 05/11/2016 Type 2 diabetes mellitus, without long-term cur*05/11/2016 More... 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 DISPOSITION AND FOLLOW-UP 01/07/2017 01/09/2017 More... Mechanical venous thromboembolism (VTE) prophyl*01/07/2017 0 01/09/2017 More... Pain, postoperative, acute [G89.18] 01/07/2017 01/21/2020 More... Morbid obesity with BMI of 50.0-59.9, adult (HC*01/07/2017 More... Obstructive sleep apnea syndrome [G47.33] 01/07/2017 More... Osteopenia [M85.80] Status post cataract extraction and insertion o*08/10/2017 History of lung cancer [Z85.118] 08/16/2017 Status post cataract extraction and insertion o*08/26/2017 Type 2 diabetes mellitus without retinopathy (H*01/03/2018 0 01/21/2020 Vitreous floaters of both eyes [H43.393] 01/03/2018 Pseudophakia of both eyes [Z96.1] 01/03/2018 BPPV (benign paroxysmal positional vertigo) [H8*03/21/2018 Type 2 diabetes mellitus with diabetic neuropat* Dermatochalasis of both upper eyelids [H02.831,*01/03/2019 Prescriptions ordered this encounter Disp Refills Start End HYDROXYZINE HCL 25 MG TABLET 90 t* 1 02/19/2020 Route: ORAL Sig: Take 1 tablet by mouth every 8 hours as needed. Medications Discontinued During This Encounter hydrOXYzine HCl (ATARAX) 25 mg tablet 90 t* 1 08/23/201902/18 Route: ORAL Sig: Take 1 tablet by mouth every 8 hours as needed. Disc: Reason for discontinue is not on file. Encounter Status:Closed by SONU LYLE on 02/19/20 progress on 2020-02 PROGRESS HNO ID: [id number] Normal 02-15-2020 [facility] Author: Umang adair ([id number]) Service: ? Author Type: Physician Type: Progress Notes Filed: 02/15/2020 1:32 PM Note Text: PATIENT NAME: Bri Jiménez. CLINIC NO: [id number]. ATTENDING PHYSICIAN: Umang Leiva MD. DATE OF SERVICE:?02/15/2020 ?? 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 HPI: 68-year-old obese female with history of hypertension, type 2 diabetes mellitus, hypercholesterolemia, and asthma who pres ented last month from a TIA. She presented to emergency room because of left sided weakness and numbness with lightheadedness and slurred speec h. She was not able to move her left arm and leg. Initially and subsequentl y improved. Patient did not fall or has loss of consciousness. She was n ot feeling well for a week prior to her TIA. ?? She was sent to the local ER and then transferred to [facility]. MRA and MRI scan of the brain was done. She was placed on Pl avix along with aspirin and Zocor after discharge. She was scheduled fo r Carotid Doppler study. During her hospitalization, her platelet coun ts was elevated at 880,000, but she had a normal hemoglobin and hem atocrit. Patient has no history of fever, chills or night sweats. She has no history of pruritus or early satiety. She denies weight loss , change in bowel habits or urinary symptoms. ?? She has a family history of cancer. She had uterine cancer 3 0 years ago and she had a complete hysterectomy followed by radiation th era. Patient had a mammogram earlier this year and it was normal. She nev er had a colonoscopy screening. Patient has mostly recovered from her TIA. 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 Patient was also told that she may have sleep apnea and may require CPAP treatment. ?? Patient had?surgery for stage II B, [id number] typical carcinoi d in 01/07/2017. ? SURGICAL HX: 01/07/2017: Left video-assisted thoracic surgery. Wedge resec tion of the left lower lobe. ?? Surgical Pathology: FINAL DIAGNOSIS Lung, left lower lobe, wedge resection - Typical carcinoid t umor (3.7 cm). (See synoptic template). - Metastatic carcinoid tumor, involving one of one intrapare nchymal lymph node (09/12). - Parenchymal margin negative. SM/rw 01/10/2017 ? Current treatment:?Hydrea 500 mg once daily ( discontinued D 2018 ) ?? Interim history: ?She has complained of some shortness of br eath but no cough, fevers or chills or night sweats. She has no diarrhea , weight appetite remains stable. No bone pain, headaches or neurolog ical symptoms. ? All medications AND allergies updated and reviewed by me. ?? REVIEW OF SYSTEMS: ?? CONSTITUTIONAL: No fevers, chills, nightsweats, unintended w eight loss HEENT: Denies frequent or severe heaches, nasal congestion/s inus symptoms, problematic allergy problems. EYES: No diplopia or blurry vision. CARDIOVASCULAR: No chest pain, dyspnea, palpitations, orthop fern, PND, ankle edema. PULM: No dyspnea, unexplained cough. GI: No dysphagia/odynophagia, problematic reflux, constipati on, diarrhea, changes in stool habits, hematochezia, melena. : No new urinary complaints, including dysuria, gross colin turia or pyuria. NEURO: No new balance problems, peripheral weakness/ +parest hesias or numbness of lower extremity. MUSC-SKEL: No new joint pain, swelling, or erythema. PSY: No concerns regarding depression, anxiety or panic. INTEGUMENTARY: No new skin changes (rash, new or changing mo le, new growth) ?? PHYSICAL EXAMINATION: 67-year-old female in no acute distres s BP 135/63 Pulse 63 Temp (Src) 98.6 (Temporal) HEENT: Head is normocephalic, atraumatic. Sclerae white, con junctivae pink. PEERL. EOMs are intact. Oropharynx is benign. LYMPHATICS: There is no palpable adenopathy in the neck, sup raclavicular region, axillae, or groin. BREASTS: Normal no palpable mass, nodules, LUNGS: Thoracotomy scar is clean and healed. Lungs with dmin ished breath sounds lung bases no wheezing rales or rhonchi HEART: Heart is normal without murmurs, gallops, or rubs. ABDOMEN: Obese, Soft and nontender without organomegaly. No masses can be palpated. EXTREMITIES: Are without edema. 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 No sensory deficit, normal gait. ?? LABORATORY DATA: Component Latest Ref Rng AND Units 02/15/2020 WBC 3.70 - 11.00 k/uL 9.28 RBC 3.90 - 5.20 m/uL 4.72 Hemoglobin 11.5 - 15.5 g/dL 12.6 Hematocrit 36.0 - 46.0 % 39.7 MCV 80.0 - 100.0 fL 84.1 MCH 26.0 - 34.0 pG 26.7 MCHC 30.5 - 36.0 g/dL 31.7 RDW-CV 11.5 - 15.0 % 15.0 Platelet Count 150 - 400 k/uL 344 MPV 9.0 - 12.7 fL 10.0 Neut% % 64.8 Abs Neut (ANC) 1.45 - 7.50 k/uL 6.01 Lymph% % 22.4 Abs Lymph 1.00 - 4.00 k/uL 2.08 [place]% % 9.1 Abs [place] <0.87 k/uL 0.84 Eosin% % 3.3 Abs Eosin <0.46 k/uL 0.31 Baso% % 0.4 Abs Baso <0.11 k/uL 0.04 Nucleated Reds 0 /100 WBC 0.0 Absolute nRBC <0.01 k/uL <0.01 Diff Type Auto Diff Component Latest Ref Rng AND Units 02/15/2020 Protein, Total 6.3 - 8.0 g/dL 7.1 Albumin 3.9 - 4.9 g/dL 4.1 Calcium 8.5 - 10.2 mg/dL 9.7 Bilirubin, Total 0.2 - 1.3 mg/dL 0.4 Alkaline Phosphatase 34 - 123 U/L 64 AST 13 - 35 U/L 22 Glucose 74 - 99 mg/dL 154 (H) BUN 7 - 21 mg/dL 21 Creatinine 0.58 - 0.96 mg/dL 0.88 Sodium 136 - 144 mmol/L 139 Potassium 3.7 - 5.1 mmol/L 3.9 Chloride 97 - 105 mmol/L 103 CO2 22 - 30 mmol/L 26 Anion Gap 9 - 18 mmol/L 10 ALT 7 - 38 U/L 23 eGFR- >60 eGFR-All Other Races . >60 LD 135 - 214 U/L 154 ASSESSMENT:?67-year-old lady with essential thrombocytosis - Her platelet count is normal off hydroxyurea ?? Stage IIb- T2, N1, Mo?neuroendocrine tumor of the left lung. Status post resection on 01/07/17. AFSHIN - Possible atelectasis on chest x-ray ?? PLAN:? - Repeat CBC, CMP, LDH, chromogranin A and chest x-ray offic e visit in 6 months - Continue aspirin 81mg once daily Umang Leiva MD Cc: Dr. Jon Valenzuela ld on 2020-02-15 LD 154 135-214 U/L Normal 02-15-2020 [facility] ([id number]) ferritin on 2020-02 Ferritin [Mass/Vol] 50.5 14.7-205.1 ng/mL Normal 0 [facility] ([id number]) Comment: Performed By: #### HBA1C, CM P, LIPNF #### [facility] [address] [address] comp metabolic panel on 2020-02-15 Albumin [Mass/Vol] 4.1 3.9-4.9 g/dL Normal 02-15-2020 [facility] ([id number]) ALP [Catalytic 64 34-123 U/L Normal 02-15-2020 [facility] activity/Vol] [place] and (80329) ALT [Catalytic 23 7-38 U/L Normal 02-15-2020 [facility] activity/Vol] [place] and (92406) Anion gap 10 9-18 mmol/L Normal 02-15-2020 [facility] [Moles/Vol] [place] (81078) AST [Catalytic 22 13-35 U/L Normal 02-15-2020 [facility] activity/Vol] [place] and (11589) Bilirubin [Mass/Vol] 0.4 0.2-1.3 mg/dL Normal 0 [facility] ([id number]) Calcium [Mass/Vol] 9.7 8.5-10.2 mg/dL Normal 02-15-2020 [facility] ([id number]) Chloride [Moles/Vol] 103 97-105 mmol/L Normal 0 [facility] ([id number]) CO2 [Moles/Vol] 26 22-30 mmol/L Normal 02-15-[address] ([id number]) Creatinine 0.88 0.58-0.96 mg/dL Normal 02-15-2020 [facility] [Mass/Vol] [facility] ([id number]) eGFR- Amer. >60 Normal 02-15-2020 [facility] ([id number]) GFR/1.73 sq M >60 mL/min/{1.73_m Normal 02-15-2020 [facility] predicted among 2} [facility] ([id number]) non-blacks MDRD (S/P/Bld) [Vol rate/Area] Comment: Result Comment: eGFR (Estima darby GFR) Units of measure: mL/min/1.73 meters squared eGFR is derived from the ree xpressed MDRD Study equation using the following parameters: serum creatinine, age, gender and race. The creatinine assay has been calibrated to be traceable to IDMS. An eGFR <60 mL/min/1.73m2 fo r >3 months is consistent with chronic kidney disease. Refer to KDOQI guidelines for clinical interpretation. In patients with unstable re nal function, e.g. those with acute kidney injury, the eGFR may not accurately reflect actual GFR. Glucose [Mass/Vol] 154 74-99 mg/dL High 02-15-2020 [facility] ([id number]) Comment: Result Comment: The [place] Diabetes Association (ADA) provides guidance for cutoff values for fasting glucose and random glucose. The ADA defines fasting as no caloric intake for at least 8 hours. Fas ting plasma glucose results between 100 to 125 mg/dL indicate increased risk for diabetes (prediabetes). Fasting plasma glucose resul ts greater than or equal to 126 mg/dL meet the criteria for diagnosis of diabetes. In the absence of unequivocal hyperglycemia, results should be confirmed by repeat testing. In a patient with classic s ymptoms of hyperglycemia or hyperglycemic crisis, random plasma glucose results greater than or equal to 200 mg/dL meet the criteria for diagnosis of diabetes. Reference: Standards of [facility] Care in Diabetes 2016, [place] [employer] Association. Diabetes Care. 2016.39(Suppl 1). Potassium [Moles/Vol] 3.9 3.7-5.1 mmol/L Normal 06 [facility] (88067) Protein [Mass/Vol] 7.1 6.3-8.0 g/dL Normal 02-15-2020 [facility] (06693) Sodium [Moles/Vol] 139 136-144 mmol/L Normal 02-15-2020 [facility] (54303) Urea nitrogen [Mass/Vol] 21 7-21 mg/dL Normal 02-14 [facility] (32280) cnovsp on 5 CNOVSP Visit (SP) Office (HEMAWS) Normal [facility] BRI JIMÉNEZ ([id number]) 1950 [facility] Date Time Provider Department () 02/15/20 11:20 AM UMANG LEIVA During your visit today, we recorded the following informati on about you: Temperature Pulse Blood pressure 98.6 degrees 63/minute 135/63 Umang Leiva MD 02/15/2020 1:32 PM Signed PATIENT NAME: Bri Jiménez. CLINIC NO: [id number]. ATTENDING PHYSICIAN: Umang Leiva MD. DATE OF SERVICE:?02/15/2020 ?? 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 HPI: 68-year-old obese female with history of hypertension , type 2 diabetes mellitus, hypercholesterolem ia, and asthma who presented last month from a TIA. She presented to emergency room because of left sided weak ness and numbness with lightheadedness and slurred speech. She was not able to move her left arm and leg. Initially and subsequently impr gunnar. Patient did not fall or has loss of consciousness. She was not feeling well for a week prior to her TIA. ?? She was sent to the local ER and then transferred to [facility]. MRA and MRI scan of the brain wa s done. She was placed on Plavix along with aspirin and Zocor after discharge. She was sched uled for Carotid Doppler study. During her hospitalization, her mel telet counts was elevated at 880,000, but she had a normal hemoglobin and hematocrit. Patient has no histo ry of fever, chills or night sweats. She has no history of pruritus or early satiet y. She denies weight loss, change in bowel habits or urinary symptoms. ?? She has a family history of cancer. She had uterine cancer 30 years ago and she had a complete hysterectomy followed by radiation therapy. [place] had a mammogram earlier this year and it was normal. She never had a colonoscopy screening. Patient has mostly recovered from her TIA. 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 Patient was also told that she may have sle ep apnea and may require CPAP treatment. ?? Patient had?surgery for stag e II B, [id number] typical carcinoid in 01/07/2017. ? SURGICAL HX: 01/07/2017: Left video-assisted thoracic surgery. Wedge resection of the left lower lobe. ?? Surgical Pathology: FINAL DIAGNOSIS Lung, left lower lobe, wedge resection - Typical carcinoid t umor (3.7 cm). (See synoptic template). - Metastatic carcinoid tumor, involving one of one intrapare nchymal lymph node (09/12). - Parenchymal margin negative. SM/rw 01/10/2017 ? Current treatment:?Hydrea 500 mg once daily ( discontinued D 2018 ) ?? Interim history: ?She has complained of some shortness of breath but no cough, fevers or chills or night sweats. She holland s no diarrhea, weight appetite remains stable. No bone pain, headaches or neurological symptoms. ? All medications AND allergies updated and reviewed by me. ?? REVIEW OF SYSTEMS: ?? CONSTITUTIONAL: No fevers, chills, nightsweats, unintended w eight loss HEENT: Denies frequent or severe heaches, nasal congestion/s inus symptoms, problematic allergy problems. EYES: No diplopia or blurry vision. CARDIOVASCULAR: No chest pain, dyspnea, palpitations, orth opnea, PND, ankle edema. PULM: No dyspnea, unexplained cough. GI: No dysphagia/odynophagia, problematic reflux, constipati on, diarrhea, changes in stool habits, hematochezia, melena. : No new urinary complaints, including dysuria, fabio s hematuria or pyuria. NEURO: No new balance problems, peripher al weakness/ +paresthesias or numbness of lower extremity. MUSC-SKEL: No new joint pain, swelling, or erythema. PSY: No concerns regarding depression, anxiety or panic. INTEGUMENTARY: No new skin changes (rash, new or changing mole, new growth) ?? PHYSICAL EXAMINATION: 67-year-old female in no acute distres s BP 135/63 Pulse 63 Temp (Src) 98.6 (Temporal) HEENT: Head is normocephalic, atraumatic. Sclerae white, c onjunctivae pink. PEERL. EOMs are intact. Oropharynx is benign. LYMPHATICS: There is no palpable adenopathy in the neck, sup raclavicular region, axillae, or groin. BREASTS: Normal no palpable mass, nodules, LUNGS: Thoracotomy scar is c lean and healed. Lungs with dminished breath sounds lung bases no wheezing rales or rhonchi HEART: Heart is normal without murmurs, gallops, or rubs. ABDOMEN: Obese, Soft and nontender without organomegaly. No masses can be palpated. EXTREMITIES: Are without edema. NEUROLOGIC: Exam is physiologic; minimal left hand gri p weakness. No sensory deficit, normal gait. ?? LABORATORY DATA: Component Latest Ref Rng AND Units 02/15/2020 WBC 3.70 - 11.00 k/uL 9.28 RBC 3.90 - 5.20 m/uL 4.72 Hemoglobin 11.5 - 15.5 g/dL 12.6 Hematocrit 36.0 - 46.0 % 39.7 MCV 80.0 - 100.0 fL 84.1 MCH 26.0 - 34.0 pG 26.7 MCHC 30.5 - 36.0 g/dL 31.7 RDW-CV 11.5 - 15.0 % 15.0 Platelet Count 150 - 400 k/uL 344 MPV 9.0 - 12.7 fL 10.0 Neut% % 64.8 Abs Neut (ANC) 1.45 - 7.50 k/uL 6.01 Lymph% % 22.4 Abs Lymph 1.00 - 4.00 k/uL 2.08 [place]% % 9.1 Abs [place] <0.87 k/uL 0.84 Eosin% % 3.3 Abs Eosin <0.46 k/uL 0.31 Baso% % 0.4 Abs Baso <0.11 k/uL 0.04 Nucleated Reds 0 /100 WBC 0.0 Absolute nRBC <0.01 k/uL <0.01 Diff Type Auto Diff Component Latest Ref Rng AND Units 02/15/2020 Protein, Total 6.3 - 8.0 g/dL 7.1 Albumin 3.9 - 4.9 g/dL 4.1 Calcium 8.5 - 10.2 mg/dL 9.7 Bilirubin, Total 0.2 - 1.3 mg/dL 0.4 Alkaline Phosphatase 34 - 123 U/L 64 AST 13 - 35 U/L 22 Glucose 74 - 99 mg/dL 154 (H) BUN 7 - 21 mg/dL 21 Creatinine 0.58 - 0.96 mg/dL 0.88 Sodium 136 - 144 mmol/L 139 Potassium 3.7 - 5.1 mmol/L 3.9 Chloride 97 - 105 mmol/L 103 CO2 22 - 30 mmol/L 26 Anion Gap 9 - 18 mmol/L 10 ALT 7 - 38 U/L 23 eGFR- >60 eGFR-All Other Races . >60 LD 135 - 214 U/L 154 ASSESSMENT:?67-year-old lady with essential thrombocytosis - Her platelet count is normal off hydroxyurea ?? Stage IIb- T2, N1, Mo?neuroendocrine tumor of the left lung. Status post resection on 01/07/17. AFSHIN - Possible atelectasis on chest x-ray ?? PLAN:? - Repeat CBC, CMP, LDH, manager clinical mogranin A and chest x-ray office visit in 6 months - Continue aspirin 81mg once daily Umang Leiva MD Cc: Dr. 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 Follow-up and Disposition History Recorded Prescriptions as of 02/15/2020 Sig: METFORMIN ER 500 MG TABLET,EX* Take 2 tablets by mouth twice * AMLODIPINE 10 MG TABLET Take 1 tablet by mouth once d* SIMVASTATIN 20 MG TABLET Take 1 tablet by mouth daily * LOSARTAN 25 MG TABLET Take 1 tablet by mouth once d* HYDROXYZINE HCL 25 MG TABLET Take 1 tablet by mouth every * CARVEDILOL 12.5 MG TABLET Take 12.5 mg by mouth twice d* ALBUTEROL SULFATE 2.5 MG/3 ML* Use 3 mL via nebulizer every * FLUOXETINE 40 MG CAPSULE Take 1 capsule by mouth once * ALENDRONATE 70 MG TABLET Take 1 tablet by mouth once e* CALCIUM + D ORAL Take 2 tablets by mouth once * ACETAMINOPHEN 500 MG TABLET Take 1 tablet by mouth every * ASPIRIN 81 MG CHEWABLE TABLET Take 81 mg by mouth once jl* Problem List As Of Date 02/15/2020 Noted Resolved 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 Transient cerebral ischemia [G45.9] 05/11/2016 More... Essential hypertension [I10] 05/11/2016 More... Hypercholesteremia [E78.00] 05/11/2016 Type 2 diabetes mellitus, without long-term cur*05/11/2016 More... 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 DISPOSITION AND FOLLOW-UP 01/07/2017 01/09/2017 More... Mechanical venous thromboembolism (VTE) prophyl*01/07/2017 0 01/09/2017 More... Pain, postoperative, acute [G89.18] 01/07/2017 01/21/2020 More... Morbid obesity with BMI of 50.0-59.9, adult (HC*01/07/2017 More... Obstructive sleep apnea syndrome [G47.33] 01/07/2017 More... Osteopenia [M85.80] Status post cataract extraction and insertion o*08/10/2017 History of lung cancer [Z85.118] 08/16/2017 Status post cataract extraction and insertion o*08/26/2017 Type 2 diabetes mellitus without retinopathy (H*01/03/2018 0 01/21/2020 Vitreous floaters of both eyes [H43.393] 01/03/2018 Pseudophakia of both eyes [Z96.1] 01/03/2018 BPPV (benign paroxysmal positional vertigo) [H8*03/21/2018 Type 2 diabetes mellitus with diabetic neuropat* Dermatochalasis of both upper eyelids [H02.831,*01/03/2019 Encounter Status:Closed by UMANG LEIVA MD on 02/15/20 cbc and differential on 2020-02-15 Abs Baso 0.04 <0.11 k/uL Normal 02-15-2020 [facility] ([id number]) Abs [place] 0.84 <0.87 k/uL Normal 02-15-2020 [facility] ([id number]) Abs Neut 6.01 1.45-7.50 k/uL Normal 02-15-2020 [facility] ([id number]) Absolute nRBC <0.01 <0.01 Normal 02-15-2020 [facility] ([id number]) Basophils/100 WBC 0.4 % Normal 02-15-2020 [facility] (Bld) [facility] ([id number]) DTYPE Auto Diff Normal 02-15-2020 [facility] (75055) Eosinophils (d) 0.31 <0.46 k/uL Normal 02-15-2020 [facility] [#/Vol] [facility] ([id number]) Eosinophils/100 WBC 3.3 % Normal 02-15-2020 [facility] (d) [facility] ([id number]) Erythrocyte 15.0 11.5-15.0 % Normal 02-15-2020 [facility] distribution width [facility] ([id number]) (RBC) [Ratio] Hematocrit (Bld) 39.7 36.0-46.0 % Normal 02-15-2020 [facility] [Volume fraction] [facility] ([id number]) Hemoglobin (Bld) 12.6 11.5-15.5 g/dL Normal 02-15-2020 [facility] [Mass/Vol] [place] ([id number]) Lymphocytes (Bld) 2.08 1.00-4.00 k/uL Normal 02-15-2020 [facility] [#/Vol] [facility] ([id number]) Lymphocytes/100 WBC 22.4 % Normal 02-15-2020 [facility] (Bld) [facility] ([id number]) MCH (RBC) [Entitic 26.7 26.0-34.0 pG Normal 02-15-2020 [facility] mass] [facility] ([id number]) MCHC (RBC) 31.7 30.5-36.0 g/dL Normal 02-15-2020 [facility] [Mass/Vol] [facility] ([id number]) MCV (RBC) [Entitic 84.1 80.0-100.0 fL Normal 02-15-2020 [facility] vol] [facility] ([id number]) Monocytes/100 WBC 9.1 % Normal 02-15-2020 [facility] (Bld) [facility] ([id number]) Neutrophils/100 WBC 64.8 % Normal 02-15-2020 [facility] (Bld) [facility] ([id number]) NRBCs 0.0 0 /100 WBC Normal 02-15-2020 [facility] ([id number]) Platelet mean volume 10.0 9.0-12.7 fL Normal 0 [facility] (d) [Entitic vol] [facility] ([id number]) Platelets (Bld) 344 150-400 k/uL Normal 02-15-2020 [facility] [#/Vol] [facility] ([id number]) RBC (Bld) [#/Vol] 4.72 3.90-5.20 m/uL Normal 02-15-2020 [facility] ([id number]) WBC (Bld) [#/Vol] 9.28 3.70-11.00 k/uL Normal 02-15-2020 [facility] ([id number]) progress on 2020-01 PROGRESS HNO ID: [id number] Normal 01-23-2020 [facility] Author: Jon Riley) Bianca [facility] ([id number]) Service: ? Author Type: Physician Type: Progress Notes Filed: 01/23/2020 10:12 AM Note Text: This Team Access Model visit is a phone encounter. It requir ed patient-provider interaction for the medical decision making as documented below. Chief Complaint Patient presents with: Telemedicine F/U 3 months HPI Bri Jiménez is a 69 year old female who presents here to day for 3 month follow up. DIABETES MELLITUS: Ms. Jiménez was last seen 3 months ago. Sin ce our last visit she denies excessive thirst or increased frequency of urination, numbness, tingling or pain in extremities, new or unusual vi sual symptoms and low sugar/hypoglycemic reactions. Follows a diabetic t generally not very much. She is compliant with medication(s) and is to lerating med(s) without any side effects. She reports checking her gl ucose on a once a day schedule with sugars in the fasting <145 range. [facility]'s last HgA1C was Hemoglobin A1C (%) Date Value 11/29/2018 6.2 06/08/2018 6.1 ) Last Ophthalmology exam was more than 12 months ago Last Podiatry exam was more than 12 months ago JAJA: using Bipap every night and feels much more comfortable on the Bipap than the CPAP. Denies daytime somnolence. ? Depression: Taking Prozac as prescribed. States that when th e weather is nice her symptoms are very minimal. Would like to continue o n same dosage at this time. Denies SI/HI. ? HTN: Started on Losartan at last OV after developing dry cou gh with lisinopril. BP at home between 110-120/60's range. Notes that her pulse ox has been dropping to around 88 when she is up walking. Had been on oxygen until a couple months ago from [place] in the fall. Was discontinued by Dr. Zheng's office. Denies cou gh, wheezing, chest pain, palpitations, weight gain. Past medical history, appointments, medications, allergies luca cervantes. 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 Leiva-hematology/oncology. - Cataracts, bilateral - Depression - Diabetes (HCC) Type II - Environmental allergies ??? - Fibromyalgia - Hypertension - Morbid obesity (HCC) 01/06/2017 BMI 50.3 - Neuropathy (HCC) - JAJA (obstructive sleep apnea) Bipap - Osteopenia - Thrombocytosis (HCC) Seeing Dr. Leiva; on hydroxyurea and blood thinners - TIA (transient ischemic attack) 04/26/2016 TIA - Uterine cancer (HCC) 1984 hysterectomy Previous Surgical History PAST SURGICAL HISTORY Procedure Laterality Date - CATARACT EXTRACTION W/ INTRAOCULAR LENS IMPLANT HX Left - CATARACT EXTRACTION W/ INTRAOCULAR LENS IMPLANT HX Right 1 10/26/2016 - PAST SURGICAL HISTORY OF Tonsillectomy - PAST SURGICAL HISTORY OF Left knee surgery - PAST SURGICAL HISTORY OF 05/17/1975 - PAST SURGICAL HISTORY OF Ganglion cyst removed from left hand - PAST SURGICAL HISTORY OF Cyst removed from right wrist - PAST SURGICAL HISTORY OF 1983 Hysterectomy - PAST SURGICAL HISTORY OF Oily deposits removed from scalp - PAST SURGICAL HISTORY OF laser surgery for abnormal cells after hysterectomy - THORACOSCOPY W/DX WEDGE RESEXN ANATO LUNG RESEXN Left 12/12 VATS left lower lung wedge resection of carcinoid tumor Family History FAMILY HISTORY Problem Relation Age of Onset - Diabetes Mother - Cataract Mother - other (HTN) Mother - Diabetes Sister - other (CHF) Sister - Cancer Sister d/t brain cancer - other (Borderline Diabetes) Sister - other (Tuberculosis) Brother d/t TB @ 10 months Patient Allergies ALLERGIES Allergen Reactions - Lisinopril Cough - Seasonal Allergies Intolerance Current Medications Current Outpatient Medications on File Prior to Visit Medication Sig - amLODIPine (NORVASC) 10 mg tablet Take 1 tablet by mouth o nce daily. - simvastatin (ZOCOR) 20 mg tablet Take 1 tablet by mouth da dm at bedtime. - losartan (COZAAR) 25 mg tablet Take 1 tablet by mouth once daily. - hydrOXYzine HCl (ATARAX) 25 mg tablet Take 1 tablet by christy th every 8 hours as needed. - carvedilol (COREG) 12.5 mg tablet Take 12.5 mg by mouth tw ice daily. - albuterol (PROVENTIL) 2.5 mg /3 mL (0.083 %) nebulizer claude ution Use 3 mL via nebulizer every 6 hours as needed. OVER 5-15 MINUTES. FO R WHEEZING AND SHORTNESS OF BREATH. - FLUoxetine HCl (PROZAC) 40 mg capsule Take 1 capsule by mo ut once daily. - alendronate (FOSAMAX) 70 mg tablet Take 1 tablet by mouth once each week. - metFORMIN ER (GLUCOPHAGE XR) 500 mg 24 hr tablet Take 1 ta blet by mouth twice daily before meals. - CALCIUM CARBONATE/VITAMIN D3 (CALCIUM + D ORAL) Take 2 tab lets by mouth once daily. - acetaminophen (TYLENOL EXTRA STRENGTH) 500 mg tablet Take 1 tablet by mouth every 8 hours as needed for Pain. - aspirin 81 mg chewable tablet Take 81 mg by mouth once edmond ly. No current facility-administered medications on file prior t o visit. Social History Social History Tobacco Use - Smoking status: Former Smoker Packs/day: 0.75 Years: 1.00 Pack years: 0.75 Types: Cigarettes Last attempt to quit: 08/25/1972 Years since quittin.4 - Smokeless tobacco: Never Used Substance Use Topics - Alcohol use: Yes Comment: Rare mixed drink - Drug use: No Review of Symptoms REVIEW OF SYSTEMS GENERAL: No weight loss, malaise or fevers RESPIRATORY: See HPI CARDIOVASCULAR: Negative for chest pain, leg swelling, hyper tension, CHF or palpitations GI: No nausea, vomiting, or diarrhea SKIN: Negative for lesions, rash, and itching EXAM: BP 121/67 HR: 66 Weight 275 lbs General Appearance: Well sounding, alert, able to talk in co mplete sentences. Health Maintenance List BP CONTROLLED (<130/80) due on 1969 FECAL OCCULT BLOOD due on 2001 SHINGRIX VACCINE(1 of 2) due on 2001 ADVANCE DIRECTIVE DISCUSSION due on 2016 HBA1C due on 06/01/2019 URINE ALBUMIN:CREATININE RATIO due on 11/30/2019 LDL CHOLESTEROL due on 11/30/2019 DIABETIC FOOT EXAM due on 12/08/2019 DILATED RETINAL EXAM due on 01/04/2020 MAMMOGRAM due on 07/12/2020 ANNUAL PCP TEAM CHRONIC DISEASE VISIT due on 10/26/2020 PNEUMOVAX AGE 65 AND OVER WITH 5YR LOOKBACK(1) due on 2020 DTAP,TDAP,TD(2 - Td) due on 04/15/2027 BONE DENSITY Completed ADULT PREVNAR-13 Completed INFLUENZA Completed HEPATITIS C SCREENING Completed Data reviewed Component Latest Ref Rng AND Units 05/04/2019 08/17/2019 020 WBC 3.70 - 11.00 k/uL 9.62 RBC 3.90 - 5.20 m/uL 4.36 Hemoglobin 11.5 - 15.5 g/dL 12.1 Hematocrit 36.0 - 46.0 % 37.8 MCV 80.0 - 100.0 fL 86.7 MCH 26.0 - 34.0 pG 27.8 MCHC 30.5 - 36.0 g/dL 32.0 RDW-CV 11.5 - 15.0 % 13.6 Platelet Count 150 - 400 k/uL 336 MPV 9.0 - 12.7 fL 9.9 Neut% % 58.5 Abs Neut (ANC) 1.45 - 7.50 k/uL 5.62 Lymph% % 26.4 Abs Lymph 1.00 - 4.00 k/uL 2.54 [place]% % 11.4 Abs [place] <0.87 k/uL 1.10 (H) Eosin% % 3.3 Abs Eosin <0.46 k/uL 0.32 Baso% % 0.4 Abs Baso <0.11 k/uL 0.04 Nucleated Reds 0 /100 WBC 0.0 Absolute nRBC <0.01 k/uL <0.01 Diff Type Auto Diff Protein, Total 6.3 - 8.0 g/dL 7.1 Albumin 3.9 - 4.9 g/dL 4.0 Calcium 8.5 - 10.2 mg/dL 9.0 Bilirubin, Total 0.2 - 1.3 mg/dL 0.5 Alkaline Phosphatase 34 - 123 U/L 64 AST 13 - 35 U/L 17 Glucose 74 - 99 mg/dL 198 (H) BUN 7 - 21 mg/dL 12 Creatinine 0.58 - 0.96 mg/dL 0.73 Sodium 136 - 144 mmol/L 138 Potassium 3.7 - 5.1 mmol/L 4.0 Chloride 97 - 105 mmol/L 103 CO2 22 - 30 mmol/L 24 Anion Gap 9 - 18 mmol/L 11 ALT 7 - 38 U/L 12 eGFR- >60 eGFR-All Other Races . >60 WBC, [place] 3.70 - 11.00 k/uL 10.24 8.33 RBC, [place] 3.90 - 5.20 m/uL 4.27 4.05 Hemoglobin, [place] 11.5 - 15.5 g/dL 13.3 12.2 Hematocrit, [place] 36.0 - 46.0 % 40.4 37.0 MCV, [place] 80.0 - 100.0 fL 94.6 91.4 MCH, [place] 26.0 - 34.0 pg 31.1 30.1 MCHC, [place] 30.5 - 36.0 g/dL 32.9 33.0 RDW, [place] 11.5 - 15.0 % 13.0 14.9 Platelet Cnt, [place] 150 - 400 k/uL 338 326 MPV, [place] 9.0 - 12.7 fL 9.3 9.6 Absol Gran Count 1.45 - 7.50 k/uL 6.48 5.44 LD 135 - 214 U/L 154 ASSESSMENT/PLAN: 1. Type 2 diabetes mellitus without complication, without lo ng-term current use of insulin (HCC) - ICD9: 250.00, ICD10: E11.9 (p rimary diagnosis) worsening control - Increase Metformin ER - Blood glucose monitoring on a twice a day schedule - Encouraged regular aerobic exercise and weight loss - Daily Asprin therapy recommended - Follow up in 3 months, sooner should any other issues deshawn fenton - Discussed diabetic education issues of termite helper diabetic complications, hypoglycemic symptoms, hyperglycemic symptoms , diet, medications- side effects and need for compliance and import ance of exercise with patient. - METFORMIN ER 500 MG TABLET,EXTENDED RELEASE 24 HR 2. PRICE (dyspnea on exertion) - ICD9: 786.09, ICD10: R06.00 Present since oxygen discontinued. Advised to call Dr. Zheng 's office today to see about getting back on oxygen. Required after pn eumonia last fall. Echo in July showed normal EF and diastolic functi on on technically difficult exam. Consider stress testing dependin g on pulmonology recommendations. 3. Hypoxia - ICD9: 799.02, ICD10: R09.02 4. Essential hypertension - ICD9: 401.9, ICD10: I10 - good control - Continue current medication(s) - Encouraged dietary sodium restriction/DASH diet - Recommended regular aerobic exercise. - Reviewed risks of HTN and principles of treatment - Goal of BP <140/90 5. Obstructive sleep apnea syndrome - ICD9: 327.23, ICD10: G 47.33 Controlled on Bipap. 6. Moderate episode of recurrent major depressive disorder ( HCC) - ICD9: 296.32, ICD10: F33.1 Controlled on SSRI. 7. ALANA (generalized anxiety disorder) - ICD9: 300.02, ICD10: F41.1 Controlled on SSRI. 8. 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 Leiva. Has appointment next month. I spent 17 minutes in the visit, with more than 50% of the t [facility] [id number] time of the visit in counseling / coordination of care. Jon Valenzuela MD obsolete on 2019-12 OBSOLETE Refill (FAMPWS) Normal 01-02-2020 [facility] BRI JIMÉNEZ ([id number]) 1950 [facility] Time Provider Department ([id number]) 01/02/20 JON VALENZUELA) FAMPWS During your visit today, we recorded the following informati on about you: Adrianne Richbrent Pss 01/02/2020 10:14 AM Signed Patient has been identified by name and date of : Yes Last office visit in this department: 10/26/2019 RX INSTRUCTIONS: Patient aware RX will be sent to pharmacy. No need to notify patient. Patient phones requesting refills as follows: Pending Prescriptions Disp Refills AMLODIPINE 10 MG TABLET 90 tablet 1 Sig: Take 1 tablet by mouth once daily. REJI: No Please review and advise. Adrianne Fine Pss Allergies As of Date: 01/02/2020 Noted Allergy Reaction LISINOPRIL 10/20/2019 3 - Cough SEASONAL ALLERGIES 05/11/2016 5 - Intolerance Date Reviewed: 10/26/2019 Reviewed by: Venecia Garcia Ma - Fully Assessed Reason for Visit: Refill Request [94] Visit Diagnosis:Essential hypertension [I10] Order(s):amLODIPine (NORVASC) 10 mg tabletTake 1 tablet by m out once daily.Disp: 90 tabletRfl: 1 Prescriptions as of 01/02/2020 Sig: AMLODIPINE 10 MG TABLET Take 1 tablet by mouth once d* SIMVASTATIN 20 MG TABLET Take 1 tablet by mouth daily * LOSARTAN 25 MG TABLET Take 1 tablet by mouth once d* HYDROXYZINE HCL 25 MG TABLET Take 1 tablet by mouth every * CARVEDILOL 12.5 MG TABLET Take 12.5 mg by mouth twice d* ALBUTEROL SULFATE 2.5 MG/3 ML* Use 3 mL via nebulizer every * FLUOXETINE 40 MG CAPSULE Take 1 capsule by mouth once * ALENDRONATE 70 MG TABLET Take 1 tablet by mouth once e* METFORMIN ER 500 MG TABLET,EX* Take 1 tablet by mouth twice * CALCIUM + D ORAL Take 2 tablets by mouth once * ACETAMINOPHEN 500 MG TABLET Take 1 tablet by mouth every * ASPIRIN 81 MG CHEWABLE TABLET Take 81 mg by mouth once jl* Problem List As Of Date 01/02/2020 Noted Resolved 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 Transient cerebral ischemia [G45.9] 05/11/2016 More... Essential hypertension [I10] 05/11/2016 More... Hypercholesteremia [E78.00] 05/11/2016 Type 2 diabetes mellitus without complication, *05/11/2016 More... 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 DISPOSITION AND FOLLOW-UP 01/07/2017 01/09/2017 More... Mechanical venous thromboembolism (VTE) prophyl*01/07/2017 0 01/09/2017 More... Pain, postoperative, acute [G89.18] 01/07/2017 More... Morbid obesity with BMI of 50.0-59.9, adult (HC*01/07/2017 More... Obstructive sleep apnea syndrome [G47.33] 01/07/2017 More... Osteopenia [M85.80] Status post cataract extraction and insertion o*08/10/2017 History of lung cancer [Z85.118] 08/16/2017 Status post cataract extraction and insertion o*08/26/2017 Type 2 diabetes mellitus without retinopathy (H*01/03/2018 Vitreous floaters of both eyes [H43.393] 01/03/2018 Pseudophakia of both eyes [Z96.1] 01/03/2018 BPPV (benign paroxysmal positional vertigo) [H8*03/21/2018 Neuropathy (HCC) [G62.9] Dermatochalasis of both upper eyelids [H02.831,*01/03/2019 Prescriptions ordered this encounter Disp Refills Start End AMLODIPINE 10 MG TABLET 90 t* 1 01/02/2020 Route: ORAL Sig: Take 1 tablet by mouth once daily. Medications Discontinued During This Encounter amLODIPine (NORVASC) 10 mg tablet 90 t* 1 06/30/2019 01/02/20 Route: ORAL Sig: Take 1 tablet by mouth once daily. Disc: Reason for discontinue is not on file. Encounter Status:Closed by ARELIS ANDRADE CNP on 01/02/20 obsolete on 2019-11 OBSOLETE Refill (FAMPWS) Normal 12-07-2019 [facility] BRI Galindo ([id number]) 1950 [facility] Time Provider Department ([id number]) 12/07/19 JON VALENZUELA) FAMPWS During your visit today, we recorded the following informati on about you: Laine Zuluaga Pss 12/07/2019 8:44 AM Signed Patient has been identified by name and date of : Yes Last office visit in this department: 10/26/2019 RX INSTRUCTIONS: Patient aware RX will be sent to pharmacy. No need to notify patient. Patient phones requesting refills as follows: Pending Prescriptions Disp Refills SIMVASTATIN 20 MG TABLET 90 tablet 1 Sig: Take 1 tablet by mouth daily at bedtime. REJI: No Please review and advise. Laine Zuluaga Pss Allergies As of Date: 12/07/2019 Noted Allergy Reaction LISINOPRIL 10/20/2019 3 - Cough SEASONAL ALLERGIES 05/11/2016 5 - Intolerance Date Reviewed: 10/26/2019 Reviewed by: Venecia Garcia Ma - Fully Assessed Reason for Visit: Refill Request [94] Visit Diagnosis:Type 2 diabetes mellitus without complicatio n, without long-term current use of insulin (HCC) [E11.9] Order(s):simvastatin (ZOCOR) 20 mg tabletTake 1 tablet by [facility] daily at bedtime.Disp: 90 tabletRfl: 1 Prescriptions as of 12/07/2019 Sig: SIMVASTATIN 20 MG TABLET Take 1 tablet by mouth daily * LOSARTAN 25 MG TABLET Take 1 tablet by mouth once d* HYDROXYZINE HCL 25 MG TABLET Take 1 tablet by mouth every * CARVEDILOL 12.5 MG TABLET Take 12.5 mg by mouth twice d* ALBUTEROL SULFATE 2.5 MG/3 ML* Use 3 mL via nebulizer every * AMLODIPINE 10 MG TABLET Take 1 tablet by mouth once d* FLUOXETINE 40 MG CAPSULE Take 1 capsule by mouth once * ALENDRONATE 70 MG TABLET Take 1 tablet by mouth once e* METFORMIN ER 500 MG TABLET,EX* Take 1 tablet by mouth twice * CALCIUM + D ORAL Take 2 tablets by mouth once * ACETAMINOPHEN 500 MG TABLET Take 1 tablet by mouth every * ASPIRIN 81 MG CHEWABLE TABLET Take 81 mg by mouth once jl* Problem List As Of Date 12/07/2019 Noted Resolved 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 Transient cerebral ischemia [G45.9] 05/11/2016 More... Essential hypertension [I10] 05/11/2016 More... Hypercholesteremia [E78.00] 05/11/2016 Type 2 diabetes mellitus without complication, *05/11/2016 More... 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 DISPOSITION AND FOLLOW-UP 01/07/2017 01/09/2017 More... Mechanical venous thromboembolism (VTE) prophyl*01/07/2017 0 01/09/2017 More... Pain, postoperative, acute [G89.18] 01/07/2017 More... Morbid obesity with BMI of 50.0-59.9, adult (HC*01/07/2017 More... Obstructive sleep apnea syndrome [G47.33] 01/07/2017 More... Osteopenia [M85.80] Status post cataract extraction and insertion o*08/10/2017 History of lung cancer [Z85.118] 08/16/2017 Status post cataract extraction and insertion o*08/26/2017 Type 2 diabetes mellitus without retinopathy (H*01/03/2018 Vitreous floaters of both eyes [H43.393] 01/03/2018 Pseudophakia of both eyes [Z96.1] 01/03/2018 BPPV (benign paroxysmal positional vertigo) [H8*03/21/2018 Neuropathy (HCC) [G62.9] Dermatochalasis of both upper eyelids [H02.831,*01/03/2019 Prescriptions ordered this encounter Disp Refills Start End SIMVASTATIN 20 MG TABLET 90 t* 1 12/07/2019 Route: ORAL Sig: Take 1 tablet by mouth daily at bedtime. Medications Discontinued During This Encounter simvastatin (ZOCOR) 20 mg tablet 90 t* 1 06/14/2019 12/07/2019 Route: ORAL Sig: Take 1 tablet by mouth daily at bedtime. Disc: Reason for discontinue is not on file. Encounter Status:Closed by JON VALENZUELA MD on 0 cbc and differential on 2019-11-16 Abs Baso 0.04 <0.11 k/uL Normal 11-16-2019 [facility] ([id number]) Abs [place] 1.10 <0.87 k/uL High 11-16-2019 [facility] ([id number]) Abs Neut 5.62 1.45-7.50 k/uL Normal 11-16-2019 [facility] ([id number]) Absolute nRBC <0.01 <0.01 Normal 11-16-2019 [facility] ([id number]) Basophils/100 WBC 0.4 % Normal 11-16-2019 [facility] (d) [facility] ([id number]) DTYPE Auto Diff Normal 11-16-2019 [facility] ([id number]) Eosinophils (Bld) 0.32 <0.46 k/uL Normal 11-16-2019 [facility] [#/Vol] [facility] ([id number]) Eosinophils/100 WBC 3.3 % Normal 11-16-2019 [facility] (Bld) [facility] ([id number]) Erythrocyte 13.6 11.5-15.0 % Normal 11-16-2019 [facility] distribution width [facility] ([id number]) (RBC) [Ratio] Hematocrit (Bld) 37.8 36.0-46.0 % Normal 11-16-2019 [facility] [Volume fraction] [facility] ([id number]) Hemoglobin (Bld) 12.1 11.5-15.5 g/dL Normal 11-16-2019 [facility] [Mass/Vol] [facility] ([id number]) Lymphocytes (Bld) 2.54 1.00-4.00 k/uL Normal 11-16-2019 [facility] [#/Vol] [facility] ([id number]) Lymphocytes/100 WBC 26.4 % Normal 11-16-2019 [facility] (Bld) [facility] ([id number]) MCH (RBC) [Entitic 27.8 26.0-34.0 pG Normal 11-16-2019 [facility] mass] [facility] ([id number]) MCHC (RBC) 32.0 30.5-36.0 g/dL Normal 11-16-2019 [facility] [Mass/Vol] [facility] ([id number]) MCV (RBC) [Entitic 86.7 80.0-100.0 fL Normal 11-16-2019 [facility] vol] [facility] ([id number]) Monocytes/100 WBC 11.4 % Normal 11-16-2019 [facility] (Bld) [facility] ([id number]) Neutrophils/100 WBC 58.5 % Normal 11-16-2019 [facility] (Bld) [facility] (33011) NRBCs 0.0 0 /100 WBC Normal 11-16-2019 [facility] ([id number]) Platelet mean volume 9.9 9.0-12.7 fL Normal 0 [facility] ([facility]) [Entitic vol] [facility] ([id number]) Platelets (Bld) 336 150-400 k/uL Normal 11-16-2019 [facility] [#/Vol] [facility] ([id number]) RBC (Bld) [#/Vol] 4.36 3.90-5.20 m/uL Normal 11-16-2019 [facility] ([id number]) WBC (Bld) [#/Vol] 9.62 3.70-11.00 k/uL Normal 11-16-2019 [facility] ([id number]) xr chest 2v frontal/lat on 2019-10-26 XR CHEST 2V * * *Final Report* * * Normal 10-26 [facility] FRONTAL/LAT DATE OF EXAM: Oct 26 2019 1:37PM [facility] WOX [id number] - XR CHEST 2V FRONTAL/LAT / ([id number]) PROCEDURE REASON: multiple diagnoses * * * * Physician Interpretation * * * * EXAMINATION: CHEST RADIOGRAPH (2 VIEW FRONTAL and LATERAL) CLINICAL HISTORY: Viral URI with cough Viral URI with cough MQ: [id number] Comparison: Chest x-ray on 1111:19 RESULT: Lines, tubes, and devices: None. Lungs and pleura: No consolidation. Stable curvilinear opaci ty projecting over the thoracic spine seen on lateral view. No lung mass. No pleural effusion. Cardiomediastinal silhouette: Stable cardiac silhouette with tortuosity of the thoracic aorta. Other: There are degenerative changes in the spine. IMPRESSION: Stable exam without acute findings. Honey Processor: JOSE Transcribe Date/Time: Oct 26 2019 1:51P Dictated by : YIN MONTES MD This examination was interpreted and the report reviewed and electronically signed by: YIN MONTES MD on Oct 26 2019 1:52PM EST [id number] progress on 2019-10 PROGRESS HNO ID: [id number] Normal 10-26-2019 [facility] Author: Jeanna Mcmanus (Rt) [facility] ([id number]) Service: ? Author Type: Life Advisor Type: Progress Notes Filed: 10/26/2019 1:38 PM Note Text: Radiology Service Progress Note PATIENT NAME: Bri Jiménez DATE OF SERVICE: October 26, 2019 TIME: 1:25 PM PATIENT IDENTITY VERIFICATION COMPLETED USING TWO (2) IDENTI FIERS: Name and Date of confirmed by patient verbally. PATIENT GENDER DATA: Female. status: : No status: NO. PATIENT RELEVANT IMPLANT DATA REVIEWED: Not Applicable RADIOLOGY DEPARTMENT: General X-ray: Exam(s) Completed: Ches t X-Ray PERIPHERAL IV DATA: Not applicable SIGNED BY: RT Carlos Alberto October 26, 2019 1:25 PM PROGRESS HNO ID: [id number] Normal 10-26-2019 [facility] Author: Jon Riley) Bianca [facility]ron ([id number]) Service: ? Author Type: Physician Type: Progress Notes Filed: 10/26/2019 2:45 PM Note Text: Chief Complaint Patient presents with: URI This Team Access Model visit is a walk in encounter. It requ ired patient-provider interaction for the medical decision making as documented below. HPI Bri Jiménez is a 69 year old female who presents here to day for Above Complaints.. Symptoms started 2 days ago with sneezing, sore throat, dry cough, chest tightness with breathing, SOB, chest congestion. Denies feve r, chills, ear pain/fullness, sinus pain, lymphadenopathy, nausea, vomiting , diarrhea. Treating with mucinex DM without improvement in symptoms. Gr adually worsening. Wanted to come in before this turned into pneumon ia again. Past medical history, appointments, medications, allergies r eviewed. 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 Leiva-hematology/oncology. - Cataracts, bilateral - Depression - Diabetes (HCC) Type II - Environmental allergies ??? - Fibromyalgia - Hypertension - Morbid obesity (HCC) 01/06/2017 BMI 50.3 - Neuropathy (HCC) - JAJA (obstructive sleep apnea) Bipap - Osteopenia - Thrombocytosis (HCC) Seeing Dr. Leiva; on hydroxyurea and blood thinners - TIA (transient ischemic attack) 04/26/2016 TIA - Uterine cancer (HCC) 1984 hysterectomy Previous Surgical History PAST SURGICAL HISTORY Procedure Laterality Date - CATARACT EXTRACTION W/ INTRAOCULAR LENS IMPLANT HX Left - CATARACT EXTRACTION W/ INTRAOCULAR LENS IMPLANT HX Right 1 10/26/2016 - PAST SURGICAL HISTORY OF Tonsillectomy - PAST SURGICAL HISTORY OF Left knee surgery - PAST SURGICAL HISTORY OF 05/17/1975 - PAST SURGICAL HISTORY OF Ganglion cyst removed from left hand - PAST SURGICAL HISTORY OF Cyst removed from right wrist - PAST SURGICAL HISTORY OF 1983 Hysterectomy - PAST SURGICAL HISTORY OF Oily deposits removed from scalp - PAST SURGICAL HISTORY OF laser surgery for abnormal cells after hysterectomy - THORACOSCOPY W/DX WEDGE RESEXN ANATO LUNG RESEXN Left 12/12 VATS left lower lung wedge resection of carcinoid tumor Family History FAMILY HISTORY Problem Relation Age of Onset - Diabetes Mother - Cataract Mother - other (HTN) Mother - Diabetes Sister - other (CHF) Sister - Cancer Sister d/t brain cancer - other (Borderline Diabetes) Sister - other (Tuberculosis) Brother d/t TB @ 10 months Patient Allergies ALLERGIES Allergen Reactions - Lisinopril Cough - Seasonal Allergies Intolerance Current Medications Current Outpatient Medications on File Prior to Visit Medication Sig - losartan (COZAAR) 25 mg tablet Take 1 tablet by mouth once daily. - hydrOXYzine HCl (ATARAX) 25 mg tablet Take 1 tablet by christy th every 8 hours as needed. - carvedilol (COREG) 12.5 mg tablet Take 12.5 mg by mouth tw ice daily. - albuterol (PROVENTIL) 2.5 mg /3 mL (0.083 %) nebulizer claude ution Use 3 mL via nebulizer every 6 hours as needed. OVER 5-15 MINUTES. FO R WHEEZING AND SHORTNESS OF BREATH. - amLODIPine (NORVASC) 10 mg tablet Take 1 tablet by mouth o nce daily. - simvastatin (ZOCOR) 20 mg tablet Take 1 tablet by mouth da dm at bedtime. - FLUoxetine HCl (PROZAC) 40 mg capsule Take [facility] capsule by [facility] daily. - alendronate (FOSAMAX) 70 mg tablet Take 1 tablet by mouth once each week. - metFORMIN ER (GLUCOPHAGE XR) 500 mg 24 hr tablet Take 1 ta blet by mouth twice daily before meals. - CALCIUM CARBONATE/VITAMIN D3 (CALCIUM + D ORAL) Take 2 tab lets by mouth once daily. - acetaminophen (TYLENOL EXTRA STRENGTH) 500 mg tablet Take 1 tablet by mouth every 8 hours as needed for Pain. - aspirin 81 mg chewable tablet Take 81 mg by mouth once edmond ly. No current facility-administered medications on file prior t o visit. Social History Social History Tobacco Use - Smoking status: Former Smoker Packs/day: 0.75 Years: 1.00 Pack years: 0.75 Types: Cigarettes Last attempt to quit: 08/25/1972 Years since quittin.2 - Smokeless tobacco: Never Used Substance Use Topics - Alcohol use: Yes Comment: Rare mixed drink - Drug use: No Review of Symptoms REVIEW OF SYSTEMS See HPI EXAM: BP 124/86 Pulse 78 Temp 37.7 ?C (99.8 ?F) (Temporal Carm[place] ry) Resp 16 Wt 125.6 kg (277 lb) SpO2 97% BMI 51.49 kg/m? General Appearance: Well appearing, alert, in no acute distr ess, well-hydrated, well nourished.. Skin: Skin color, texture, turgor normal, no suspicious rash es or lesions. Head: Normocephalic, no masses, lesions, tenderness or abnor malities. Eyes: Anicteric sclera. Pupils are equally round and reactiv e to light. Extraocular movements are intact. . Ears: External ears normal, canals clear. Nose/Sinuses: Nares normal, septum midline, mucosa normal, n o drainage or sinus tenderness. Oropharynx: Lips, mucosa, and tongue normal, teeth and gums normal, oropharynx normal. Neck: Supple, no adenopathy; thyroid symmetric, normal size, no bruits. Lungs: decreased bilaterally 2/2 habitus. No rales, rhonchi or wheezes. . Heart: RRR without murmur, gallop, or rubs. No ectopy. Health Maintenance List BP CONTROLLED (<130/80) due on 1969 FECAL OCCULT BLOOD due on 2001 SHINGRIX VACCINE(1 of 2) due on 2001 HBA1C due on 06/01/2019 URINE ALBUMIN:CREATININE RATIO due on 11/30/2019 LDL CHOLESTEROL due on 11/30/2019 DIABETIC FOOT EXAM due on 12/08/2019 DILATED RETINAL EXAM due on 01/04/2020 MAMMOGRAM due on 07/12/2020 ANNUAL PCP TEAM CHRONIC DISEASE VISIT due on 10/20/2020 PNEUMOVAX AGE 65 AND OVER WITH 5YR LOOKBACK(1) due on 2020 DTAP,TDAP,TD(2 - Td) due on 04/15/2027 BONE DENSITY Completed ADULT PREVNAR-13 Completed INFLUENZA Completed HEPATITIS C SCREENING Completed ASSESSMENT/PLAN: 1. Viral URI with cough - ICD9: 465.9, ICD10: J06.9, B97.89 - Discussed viral etiology and rationale for treatment. - Symptomatic treatment with prn analgesia - Supportive care with fluids and rest - The patient may also use OTC cough and cold meds as needed . - Rx for z pack if symptoms worsening over the weekend. To c all in if she takes the abx with update on symptoms. - AZITHROMYCIN 250 MG TABLET - XR CHEST 2V FRONTAL/LAT Jon Valenzuela MD cnov on 2019-10-26 CNOV Office Visit (FAMPWS) Normal 10-26-[address] [place] [address] BRI Galindo ([id number]) 1950 [facility] Date Time Provider Department ([id number]) 10/26/19 1:00 PM JON VALENZUELA) FAMPWS During your visit today, we recorded the following informati on about you: Temperature Pulse Respiration Blood pressure 99.8 degrees 78/minute 16/minute 124/86 Weight 125.6 kg Jon Valenzuela MD 10/26/2019 2:45 PM Addendum Chief Complaint Patient presents with: URI This Team Access Model visit is a walk in encounter. It requ ired patient-provider interaction for the medical decision making as documented below. HPI Bri Jiménez is a 69 year old female who presents here to day for Above Complaints.. Symptoms started 2 days ago with sneezing, sore throat, dry cough, chest tightness with breathing, SOB, chest congestion. Denies feve r, chills, ear pain/fullness, sinus pain, lymphadenopathy, nausea, vomiting , diarrhea. Treating with mucinex DM without improve ment in symptoms. Gradually worsening. Wanted to come in before this turned into pneumonia again. Past medical history, appointments, medications, allergies r eviewed. 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 Leiva-hematology/oncology. - Cataracts, bilateral - Depression - Diabetes (HCC) Type II - Environmental allergies ??? - Fibromyalgia - Hypertension - Morbid obesity (HCC) 01/06/2017 BMI 50.3 - Neuropathy (HCC) - JAJA (obstructive sleep apnea) Bipap - Osteopenia - Thrombocytosis (HCC) Seeing Dr. Leiva; on hydroxyurea and blood thinners - TIA (transient ischemic attack) 04/26/2016 TIA - Uterine cancer (HCC) 1984 hysterectomy Previous Surgical History PAST SURGICAL HISTORY Procedure Laterality Date - CATARACT EXTRACTION W/ INTRAOCULAR LENS IMPLANT HX Left - CATARACT EXTRACTION W/ INTRAOCULAR LENS IMPLANT HX Right 1 10/26/2016 - PAST SURGICAL HISTORY OF Tonsillectomy - PAST SURGICAL HISTORY OF Left knee surgery - PAST SURGICAL HISTORY OF 05/17/1975 - PAST SURGICAL HISTORY OF Ganglion cyst removed from left hand - PAST SURGICAL HISTORY OF Cyst removed from right wrist - PAST SURGICAL HISTORY OF 1983 Hysterectomy - PAST SURGICAL HISTORY OF Oily deposits removed from scalp - PAST SURGICAL HISTORY OF laser surgery for abnormal cells after hysterectomy - THORACOSCOPY W/DX WEDGE RESEXN ANATO LUNG RESEXN Left 12/12 VATS left lower lung wedge resection of carcinoid tumor Family History FAMILY HISTORY Problem Relation Age of Onset - Diabetes Mother - Cataract Mother - other (HTN) Mother - Diabetes Sister - other (CHF) Sister - Cancer Sister d/t brain cancer - other (Borderline Diabetes) Sister - other (Tuberculosis) Brother d/t TB @ 10 months Patient Allergies ALLERGIES Allergen Reactions - Lisinopril Cough - Seasonal Allergies Intolerance Current Medications Current Outpatient Medications on File Prior to Visit Medication Sig - losartan (COZAAR) 25 mg tablet Take 1 tablet by mouth once daily. - hydrOXYzine HCl (ATARAX) 2 5 mg tablet Take 1 tablet by mouth every 8 hours as needed. - carvedilol (COREG) 12.5 mg tablet Take 12.5 mg by mouth tw ice daily. - albuterol (PROVENTIL) 2.5 mg /3 mL (0. 083 %) nebulizer solution Use 3 mL via nebulizer every 6 hours as needed. OVER 5-15 MINUTES. FOR WH EEZING AND SHORTNESS OF BREATH. - amLODIPine (NORVASC) 10 mg tablet Take 1 tablet by mouth o nce daily. - simvastatin (ZOCOR) 20 mg tablet Take 1 tablet by mouth daily at bedtime. - FLUoxetine HCl (PROZAC) 40 mg capsule Take 1 capsule by mouth once daily. - alendronate (FOSAMAX) 70 mg tablet Take 1 tablet by mout h once each week. - metFORMIN ER (GLUCOPHAGE X R) 500 mg 24 hr tablet Take 1 tablet by mouth twice daily before meals. - CALCIUM CARBONATE/VITAMIN D3 (CALCIUM + D ORAL) Take 2 tablets by mouth once daily. - acetaminophen (TYLENOL EXTRA STRENGTH) 500 mg tablet Take 1 tablet by mouth every 8 hours as needed for Pain. - aspirin 81 mg chewable tablet Take 81 mg by mouth once edmond ly. No current facility-administered medications on file prior t o visit. Social History Social History Tobacco Use - Smoking status: Former Smoker Packs/day: 0.75 Years: 1.00 Pack years: 0.75 Types: Cigarettes Last attempt to quit: 08/25/1972 Years since quittin.2 - Smokeless tobacco: Never Used Substance Use Topics - Alcohol use: Yes Comment: Rare mixed drink - Drug use: No Review of Symptoms REVIEW OF SYSTEMS See HPI EXAM: BP 124/86 Pulse 78 Temp 37.7 ?C (99.8 ?F) (Temporal Ar niurka) Resp 16 Wt 125.6 kg (277 lb) SpO2 97% BMI 51.49 kg/m? General Appearance: Well [place] earing, alert, in no acute distress, well-hydrated, well nourished.. Skin: Skin color, texture, turgor normal, no suspicious rash es or lesions. Head: Normocephalic, no masses, lesions, tenderness or abnor malities. Eyes: Anicteric sclera. Pupils are equally round and reactiv e to light. Extraocular movements are intact. . Ears: External ears normal, canals clear. Nose/Sinuses: Nares normal, septum midline, mucosa normal, no drainage or sinus tenderness. Oropharynx: Lips, mucosa, and tongue nor mal, teeth and gums normal, oropharynx normal. Neck: Supple, no adenopathy; thyroid symmetric, normal size, no bruits. Lungs: decreased bilaterally 2/2 habitus. No rales, rhonchi or wheezes. . Heart: RRR without murmur, gallop, or rubs. No ectopy. Health Maintenance List BP CONTROLLED (<130/80) due on 1969 FECAL OCCULT BLOOD due on 2001 SHINGRIX VACCINE(1 of 2) due on 2001 HBA1C due on 06/01/2019 URINE ALBUMIN:CREATININE RATIO due on 11/30/2019 LDL CHOLESTEROL due on 11/30/2019 DIABETIC FOOT EXAM due on 12/08/2019 DILATED RETINAL EXAM due on 01/04/2020 MAMMOGRAM due on 07/12/2020 ANNUAL PCP TEAM CHRONIC DISEASE VISIT due on 10/20/2020 PNEUMOVAX AGE 65 AND OVER WITH 5YR LOOKBACK(1) due on 2020 DTAP,TDAP,TD(2 - Td) due on 04/15/2027 BONE DENSITY Completed ADULT PREVNAR-13 Completed INFLUENZA Completed HEPATITIS C SCREENING Completed ASSESSMENT/PLAN: 1. Viral URI with cough - ICD9: 465.9, ICD10: J06.9, B97.89 - Discussed viral etiology and rationale for treatment. - Symptomatic treatment with prn analgesia - Supportive care with fluids and rest - The patient may also use OTC cough and cold meds as needed . - Rx for z pack if symptoms worsening over the weekend. To call in if she takes the abx with update on symptoms. - AZITHROMYCIN 250 MG TABLET - XR CHEST 2V FRONTAL/LAT Jon Valenzuela MD Referring Provider: SELF [[id number]] Allergies As of Date: 10/26/2019 Noted Allergy Reaction LISINOPRIL 10/20/2019 3 - Cough SEASONAL ALLERGIES 05/11/2016 5 - Intolerance Date Reviewed: 10/26/2019 Reviewed by: Venecia Garcia Ma - Fully Assessed Reason for Visit: URI [115] Primary Visit Diagnosis:Viral URI with cough [J06.9, B97.89] Order(s):azithromycin (ZITHROMAX Z-EUGENIA) 250 mg tabletT korey 2 tablets day one, then, 1 tablet daily until gone.Disp: 1 PackageRfl: 0 XR CHEST 2V FRONTAL/LAT [[id number]] Order #: [id number] FUTURE Prescriptions as of 10/26/2019 Sig: LOSARTAN 25 MG TABLET Take 1 tablet by mouth once d* HYDROXYZINE HCL 25 MG TABLET Take 1 tablet by mouth every * CARVEDILOL 12.5 MG TABLET Take 12.5 mg by mouth twice d* ALBUTEROL SULFATE 2.5 MG/3 ML* Use 3 mL via nebulizer every * AMLODIPINE 10 MG TABLET Take 1 tablet by mouth once d* SIMVASTATIN 20 MG TABLET Take 1 tablet by mouth daily * FLUOXETINE 40 MG CAPSULE Take 1 capsule by mouth once * ALENDRONATE 70 MG TABLET Take 1 tablet by mouth once e* METFORMIN ER 500 MG TABLET,EX* Take 1 tablet by mouth twice * CALCIUM + D ORAL Take 2 tablets by mouth once * ACETAMINOPHEN 500 MG TABLET Take 1 tablet by mouth every * AZITHROMYCIN 250 MG TABLET Take 2 tablets day one, then,* ASPIRIN 81 MG CHEWABLE TABLET Take 81 mg by mouth once jl* Problem List As Of Date 10/26/2019 Noted Resolved 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 Transient cerebral ischemia [G45.9] 05/11/2016 More... Essential hypertension [I10] 05/11/2016 More... Hypercholesteremia [E78.00] 05/11/2016 Type 2 diabetes mellitus without complication, *05/11/2016 More... 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 DISPOSITION AND FOLLOW-UP 01/07/2017 01/09/2017 More... Mechanical venous thromboembolism (VTE) prophyl*01/07/2017 0 01/09/2017 More... Pain, postoperative, acute [G89.18] 01/07/2017 More... Morbid obesity with BMI of 50.0-59.9, adult (HC*01/07/2017 More... Obstructive sleep apnea syndrome [G47.33] 01/07/2017 More... Osteopenia [M85.80] Status post cataract extraction and insertion o*08/10/2017 History of lung cancer [Z85.118] 08/16/2017 Status post cataract extraction and insertion o*08/26/2017 Type 2 diabetes mellitus without retinopathy (H*01/03/2018 Vitreous floaters of both eyes [H43.393] 01/03/2018 Pseudophakia of both eyes [Z96.1] 01/03/2018 BPPV (benign paroxysmal positional vertigo) [H8*03/21/2018 Neuropathy (HCC) [G62.9] Dermatochalasis of both upper eyelids [H02.831,*01/03/2019 Prescriptions ordered this encounter Disp Refills Start End AZITHROMYCIN 250 MG TABLET 1 Pa* 0 10/26/2019 10/31/2019 Sig: Take 2 tablets day one, then, 1 tablet daily until gone . Encounter Status:Closed by JON VALENZUELA MD on 0 progress on 2019-10 PROGRESS HNO ID: [id number] Normal 10-20-2019 [facility] Author: Jon Duarte () Bianca Barron ([id number]) Service: ? Author Type: Physician Type: Progress Notes Filed: 10/20/2019 11:46 AM Note Text: Chief Complaint Patient presents with: Medication Follow-up HPI Bri Jiménez is a 69 year old female who presents here to day for medication discussion. Read on Facebook that metformin could cause cancer and wante d to make sure it was safe to take. has been taking as prescribed. Stopped her Zantac due to recent recall. Not complaining of GERD symptoms. Does not want to restart meds at this time. DM: checking sugars BID. In the 110-130 range typically on urrent regimen. No worsening of DM symptoms. Checking feet daily wi thout changes. Due for A1C. Working on DM diet. JAJA: using Bipap every night and feels much more comfortable on the Bipap than the CPAP. Still complains of being tired throughout the day. May be realated to depression. Depression: Taking Prozac as prescribed. Since winter has fe lt more down, decreased energy/interest, trouble sleeping at night, decrea sed appetite. Does not want to increase dose of Prozac, but would be inter ested to try light therapy. HTN: BP well controlled on current regimen without side effe cts. Not on RENATO or ARB at this time for DM. Discontinued lisinopril at ardiologist office due to dry cough. Cough has since resolved. Past medical history, appointments, medications, allergies luca cervantes. 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 Leiva-hematology/oncology. - Cataracts, bilateral - Depression - Diabetes (HCC) Type II - Environmental allergies ??? - Fibromyalgia - Hypertension - Morbid obesity (HCC) 01/06/2017 BMI 50.3 - Neuropathy (HCC) - JAJA (obstructive sleep apnea) CPAP - Osteopenia - Thrombocytosis (HCC) Seeing Dr. Leiva; on hydroxyurea and blood thinners - TIA (transient ischemic attack) 04/26/2016 TIA - Uterine cancer (HCC) 1985 hysterectomy Previous Surgical History PAST SURGICAL HISTORY Procedure Laterality Date - CATARACT EXTRACTION W/ INTRAOCULAR LENS IMPLANT HX Left - CATARACT EXTRACTION W/ INTRAOCULAR LENS IMPLANT HX Right 1 10/26/2016 - PAST SURGICAL HISTORY OF Tonsillectomy - PAST SURGICAL HISTORY OF Left knee surgery - PAST SURGICAL HISTORY OF 05/17/1975 - PAST SURGICAL HISTORY OF Ganglion cyst removed from left hand - PAST SURGICAL HISTORY OF Cyst removed from right wrist - PAST SURGICAL HISTORY OF 1983 Hysterectomy - PAST SURGICAL HISTORY OF Oily deposits removed from scalp - PAST SURGICAL HISTORY OF laser surgery for abnormal cells after hysterectomy - THORACOSCOPY W/DX WEDGE RESEXN ANATO LUNG RESEXN Left 04/2 04/2017 VATS left lower lung wedge resection of carcinoid tumor Family History FAMILY HISTORY Problem Relation Age of Onset - Diabetes Mother - Cataract Mother - other (HTN) Mother - Diabetes Sister - other (CHF) Sister - Cancer Sister d/t brain cancer - other (Borderline Diabetes) Sister - other (Tuberculosis) Brother d/t TB @ 10 months Patient Allergies ALLERGIES Allergen Reactions - Seasonal Allergies Intolerance Current Medications Current Outpatient Medications on File Prior to Visit Medication Sig - hydrOXYzine HCl (ATARAX) 25 mg tablet Take 1 tablet by christy th every 8 hours as needed. - carvedilol (COREG) 12.5 mg tablet Take 12.5 mg by mouth tw ice daily. - albuterol (PROVENTIL) 2.5 mg /3 mL (0.083 %) nebulizer claude ution Use 3 mL via nebulizer every 6 hours as needed. OVER 5-15 MINUTES. FO R WHEEZING AND SHORTNESS OF BREATH. - amLODIPine (NORVASC) 10 mg tablet Take 1 tablet by mouth o nce daily. - simvastatin (ZOCOR) 20 mg tablet Take 1 tablet by mouth da dm at bedtime. - FLUoxetine HCl (PROZAC) 40 mg capsule Take 1 capsule by mo uth once daily. - alendronate (FOSAMAX) 70 mg tablet Take 1 tablet by mouth once each week. - metFORMIN ER (GLUCOPHAGE XR) 500 mg 24 hr tablet Take 1 ta blet by mouth twice daily before meals. - CALCIUM CARBONATE/VITAMIN D3 (CALCIUM + D ORAL) Take 2 tab lets by mouth once daily. - aspirin 81 mg chewable tablet Take 81 mg by mouth once edmond ly. - ranitidine (ZANTAC) 150 mg tablet Take 1 tablet by mouth t wice daily. (Patient not taking: Reported on 10/20/2019 ) - cyclobenzaprine (FLEXERIL) 5 mg tablet Take 1 tablet by mo uth twice daily as needed for Muscle Spasm. (Patient not taking: Repor darby on 10/20/2019 ) - acetaminophen (TYLENOL EXTRA STRENGTH) 500 mg tablet Take 1 tablet by mouth every 8 hours as needed for Pain. No current facility-administered medications on file prior t o visit. Social History Social History Tobacco Use - Smoking status: Former Smoker Packs/day: 0.75 Years: 1.00 Pack years: 0.75 Types: Cigarettes Last attempt to quit: 08/25/1972 Years since quittin.1 - Smokeless tobacco: Never Used Substance Use Topics - Alcohol use: Yes Comment: Rare mixed drink - Drug use: No Review of Symptoms REVIEW OF SYSTEMS GENERAL: No weight loss, malaise or fevers RESPIRATORY: Negative for cough, hemoptysis, wheezing, COPD, dyspnea or shortness of breath CARDIOVASCULAR: Negative for chest pain, leg swelling, hyper tension, CHF or palpitations GI: No nausea, vomiting, or diarrhea SKIN: Negative for lesions, rash, and itching EXAM: BP 130/82 Pulse 66 Temp 36.6 ?C (97.9 ?F) (Left Tympanic ) Resp 16 Wt 125.6 kg (277 lb) BMI 51.49 kg/m? General Appearance: Well appearing, alert, in no acute distr ess, well-hydrated, well nourished.. Skin: Skin color, texture, turgor normal, no suspicious rash es or lesions. Lungs: lungs clear to auscultation. No wheezing, rhonchi, ra les. Heart: RRR without murmur, gallop, or rubs. No ectopy. Abdomen: Normal abdominal exam, Abdomen soft, non-tender. Logan wel sounds normal. No masses, organomegaly. Extremities: No deformities, edema, skin discoloration, club radha or cyanosis. Good capillary refill. . Health Maintenance List BP CONTROLLED (<130/80) due on 1969 FECAL OCCULT BLOOD due on 2001 SHINGRIX VACCINE(1 of 2) due on 2001 HBA1C due on 06/01/2019 URINE ALBUMIN:CREATININE RATIO due on 11/30/2019 LDL CHOLESTEROL due on 11/30/2019 DIABETIC FOOT EXAM due on 12/08/2019 DILATED RETINAL EXAM due on 01/04/2020 MAMMOGRAM due on 07/12/2020 ANNUAL PCP TEAM CHRONIC DISEASE VISIT due on 07/23/2020 PNEUMOVAX AGE 65 AND OVER WITH 5YR LOOKBACK(1) due on 2020 DTAP,TDAP,TD(2 - Td) due on 04/15/2027 BONE DENSITY Completed ADULT PREVNAR-13 Completed INFLUENZA Completed HEPATITIS C SCREENING Completed Data reviewed Component Latest Ref Rng AND Units 11/29/2018 08/17/2019 Protein, Total 6.3 - 8.0 g/dL 7.1 Albumin 3.9 - 4.9 g/dL 4.0 Calcium 8.5 - 10.2 mg/dL 9.0 Bilirubin, Total 0.2 - 1.3 mg/dL 0.5 Alkaline Phosphatase 34 - 123 U/L 64 AST 13 - 35 U/L 17 Glucose 74 - 99 mg/dL 198 (H) BUN 7 - 21 mg/dL 12 Creatinine 0.58 - 0.96 mg/dL 0.73 Sodium 136 - 144 mmol/L 138 Potassium 3.7 - 5.1 mmol/L 4.0 Chloride 97 - 105 mmol/L 103 CO2 22 - 30 mmol/L 24 Anion Gap 9 - 18 mmol/L 11 ALT 7 - 38 U/L 12 eGFR- >60 eGFR-All Other Races . >60 WBC 3.70 - 11.00 k/uL 8.66 RBC 3.90 - 5.20 m/uL 4.25 Hemoglobin 11.5 - 15.5 g/dL 13.8 Hematocrit 36.0 - 46.0 % 42.2 MCV 80.0 - 100.0 fL 99.3 MCH 26.0 - 34.0 pG 32.5 MCHC 30.5 - 36.0 g/dL 32.7 RDW-CV 11.5 - 15.0 % 14.7 Platelet Count 150 - 400 k/uL 324 MPV 9.0 - 12.7 fL 10.0 Absolute nRBC <0.01 k/uL <0.01 WBC, [place] 3.70 - 11.00 k/uL 8.33 RBC, [place] 3.90 - 5.20 m/uL 4.05 Hemoglobin, [place] 11.5 - 15.5 g/dL 12.2 Hematocrit, [place] 36.0 - 46.0 % 37.0 MCV, [place] 80.0 - 100.0 fL 91.4 MCH, [place] 26.0 - 34.0 pg 30.1 MCHC, [place] 30.5 - 36.0 g/dL 33.0 RDW, [place] 11.5 - 15.0 % 14.9 Platelet Cnt, [place] 150 - 400 k/uL 326 MPV, [place] 9.0 - 12.7 fL 9.6 Absol Gran Count 1.45 - 7.50 k/uL 5.44 Cholesterol, Total <200 mg/dL 196 Triglyceride <150 mg/dL 148 HDL Cholesterol >39 mg/dL 71 LDL Cholesterol <100 mg/dL 95 Non HDL Cholesterol <130 mg/dL 125 Fasting Time hrs 15 VLDL Cholesterol <30 mg/dL 30 (H) TC:HDL Ratio <5.10 2.76 LDL:HDL Ratio <2.54 1.34 Creatinine, Ur Random (UCRR) 20 - 300 mg/dL 185.4 Albumin, Urine Random 0.0 - 23.0 mg/L 13.5 Albumin/Creat Ratio 0 - 30 mg/g 7 Hemoglobin A1C 4.3 - 5.6 % 6.2 (H) Estimated Average Glucose mg/dL 131 LD 135 - 214 U/L 154 ASSESSMENT/PLAN: 1. Controlled type 2 diabetes mellitus without complication, without long-term current use of insulin (HCC) - ICD9: 250.00, ICD10 : E11.9 (primary diagnosis) Controlled. - Continue current medications - Check HgA1C, fasting lipid panel and Urine for albumin/cre atinine ratio - Blood glucose monitoring on a twice a day schedule - Encouraged regular aerobic exercise and weight loss - Daily Asprin therapy recommended - Follow up in 3 months, sooner should any other issues deshawn sánchez. - Discussed diabetic education issues of senior care diabetic complications, hypoglycemic symptoms, hyperglycemic symptoms , diet, medications- side effects and need for compliance and import ance of exercise with patient. - HGB A1C - ALBUMIN/CREAT RATIO RND UR - LIPID PANEL, NONFASTING 2. Moderate episode of recurrent major depressive disorder ( HCC) - ICD9: 296.32, ICD10: F33.1 Continue prozac. Given information for home on SAD and light therapy. Call with worsening symptoms. 3. JAJA (obstructive sleep apnea) - ICD9: 327.23, ICD10: G47. 33 Controlled on Bipap 4. Essential hypertension - ICD9: 401.9, ICD10: I10 - suboptimal control - Begin losartan(Cozaar) - Encouraged dietary sodium restriction/DASH diet - Recommended regular aerobic exercise. - Reviewed risks of HTN and principles of treatment - Goal of BP <130/80 5. Hypercholesteremia - ICD9: 272.0, ICD10: E78.00 - to be determined upon return of lab results - Continue current medication. - Encouraged following a low fat, low cholesterol diet. - Discussed the benefits of regular aerobic exercise and nancy ght loss. 6. 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 Leiva. Jon Valenzuela MD cnov on 2019-10-20 CNOV Office Visit (FAMPWS) Normal 10-20-19 [facility] BRI JIMÉNEZ ([id number]) 1950 [facility] Date Time Provider Department ([id number]) 10/20/19 10:20 AM JON VALENZUELA) TOBIAS During your visit today, we recorded the following informati on about you: Temperature Pulse Respiration Blood pressure 97.9 degrees 66/minute 16/minute 130/82 Weight 125.6 kg Jon Valenzuela MD 10/20/2019 11:46 AM Signed Chief Complaint Patient presents with: Medication Follow-up HPI Bri Jiménez is a 69 year old female who presents here today for medication discussion. Read on Facebook that metformin could cause canc er and wanted to make sure it was safe to take. has been taking as prescribed. Stopped her Zantac due to re cent recall. Not complaining of GERD symptoms. Does not want to restart meds at this time. DM: checking sugars BID. In the 110-130 range typically on current regimen. No worsening of DM symptoms. Checking feet daily without wagner ges. Due for A1C. Working on DM diet. JAJA: using Bipap every night and feels m uch more comfortable on the Bipap than the CPAP. Still complains of being tired throughout the day. May be realated to depression. Depression: Taking Prozac as prescribed. Since winter has fe lt more down, decreased energy/interest, trouble sleep ing at night, decreased appetite. Does not want to increase dose of Prozac, but would be interested to try light therapy. HTN: BP well controlled on current regim en without side effects. Not on RENATO or ARB at this time for DM. 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 Cough has since resolved. Past medical history, appointments, medications, allergies r helen. 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 Leiva-hematology/oncology. - Cataracts, bilateral - Depression - Diabetes (HCC) Type II - Environmental allergies ??? - Fibromyalgia - Hypertension - Morbid obesity (HCC) 01/06/2017 BMI 50.3 - Neuropathy (HCC) - JAJA (obstructive sleep apnea) CPAP - Osteopenia - Thrombocytosis (HCC) Seeing Dr. Leiva; on hydroxyurea and blood thinners - TIA (transient ischemic attack) 04/26/2016 TIA - Uterine cancer (HCC) 1984 hysterectomy Previous Surgical History PAST SURGICAL HISTORY Procedure Laterality Date - CATARACT EXTRACTION W/ INTRAOCULAR LENS IMPLANT HX Left - CATARACT EXTRACTION W/ INTRAOCULAR LENS IMPLANT HX Right 1 10/26/2016 - PAST SURGICAL HISTORY OF Tonsillectomy - PAST SURGICAL HISTORY OF Left knee surgery - PAST SURGICAL HISTORY OF 05/17/1975 - PAST SURGICAL HISTORY OF Ganglion cyst removed from left hand - PAST SURGICAL HISTORY OF Cyst removed from right wrist - PAST SURGICAL HISTORY OF 1983 Hysterectomy - PAST SURGICAL HISTORY OF Oily deposits removed from scalp - PAST SURGICAL HISTORY OF laser surgery for abnormal cells after hysterectomy - THORACOSCOPY W/DX WEDGE RESEXN ANATO LUNG RESEXN Left 12/12 VATS left lower lung wedge resection of carcinoid tumor Family History FAMILY HISTORY Problem Relation Age of Onset - Diabetes Mother - Cataract Mother - other (HTN) Mother - Diabetes Sister - other (CHF) Sister - Cancer Sister d/t brain cancer - other (Borderline Diabetes) Sister - other (Tuberculosis) Brother d/t TB @ 10 months Patient Allergies ALLERGIES Allergen Reactions - Seasonal Allergies Intolerance Current Medications Current Outpatient Medications on File Prior to Visit Medication Sig - hydrOXYzine HCl (ATARAX) 2 5 mg tablet Take 1 tablet by mouth every 8 hours as needed. - carvedilol (COREG) 12.5 mg tablet Take 12.5 mg by mouth tw ice daily. - albuterol (PROVENTIL) 2.5 mg /3 mL (0. 083 %) nebulizer solution Use 3 mL via nebulizer every 6 hours as needed. OVER 5-15 MINUTES. FOR WH EEZING AND SHORTNESS OF BREATH. - amLODIPine (NORVASC) 10 mg tablet Take 1 tablet by mouth o nce daily. - simvastatin (ZOCOR) 20 mg tablet Take 1 tablet by mouth daily at bedtime. - FLUoxetine HCl (PROZAC) 40 mg capsule Take 1 capsule by mouth once daily. - alendronate (FOSAMAX) 70 mg tablet Take 1 tablet by mout h once each week. - metFORMIN ER (GLUCOPHAGE X R) 500 mg 24 hr tablet Take 1 tablet by mouth twice daily before meals. - CALCIUM CARBONATE/VITAMIN D3 (CALCIUM + D ORAL) Take 2 tablets by mouth once daily. - aspirin 81 mg chewable tablet Take 81 mg by mouth once edmond ly. - ranitidine (ZANTAC) 150 mg tablet Take 1 tablet by mouth t wice daily. (Patient not taking: Reported on 10/20/2019 ) - cyclobenzaprine (FLEXERIL) 5 mg tablet Take 1 tablet by mouth twice daily as needed for Muscle Spasm. (Patient not taking: Reported on 10/20/2019 ) - acetaminophen (TYLENOL EXTRA STRENGTH) 500 mg tablet Take 1 tablet by mouth every 8 hours as needed for Pain. No current facility-administered medications on file prior t o visit. Social History Social History Tobacco Use - Smoking status: Former Smoker Packs/day: 0.75 Years: 1.00 Pack years: 0.75 Types: Cigarettes Last attempt to quit: 08/25/1972 Years since quittin.1 - Smokeless tobacco: Never Used Substance Use Topics - Alcohol use: Yes Comment: Rare mixed drink - Drug use: No Review of Symptoms REVIEW OF SYSTEMS GENERAL: No weight loss, malaise or fevers RESPIRATORY: Negative for cough, hemoptysis, wheezing, COPD, dyspnea or shortness of breath CARDIOVASCULAR: Negative for chest pain, leg swelling, hyp ertension, CHF or palpitations GI: No nausea, vomiting, or diarrhea SKIN: Negative for lesions, rash, and itching EXAM: BP 130/82 Pulse 66 Temp 36.6 ?C (97.9 ?F) (Left Tympanic ) Resp 16 Wt 125.6 kg (277 lb) BMI 51.49 kg/m? General Appearance: Well [place] earing, alert, in no acute distress, well-hydrated, well nourished.. Skin: Skin color, texture, turgor normal, no suspicious rash es or lesions. Lungs: lungs clear to auscultation. No wheezing, rhonchi, ra les. Heart: RRR without murmur, gallop, or rubs. No ectopy. Abdomen: Normal abdominal exam, Abdomen soft, non-tender. Bowel sounds normal. No masses, organomegaly. Extremities: No deformities, edema, skin discolo ration, clubbing or cyanosis. Good capillary refill. . Health Maintenance List BP CONTROLLED (<130/80) due on 1969 FECAL OCCULT BLOOD due on 2001 SHINGRIX VACCINE(1 of 2) due on 2001 HBA1C due on 06/01/2019 URINE ALBUMIN:CREATININE RATIO due on 11/30/2019 LDL CHOLESTEROL due on 11/30/2019 DIABETIC FOOT EXAM due on 12/08/2019 DILATED RETINAL EXAM due on 01/04/2020 MAMMOGRAM due on 07/12/2020 ANNUAL PCP TEAM CHRONIC DISEASE VISIT due on 07/23/2020 PNEUMOVAX AGE 65 AND OVER WITH 5YR LOOKBACK(1) due on 2020 DTAP,TDAP,TD(2 - Td) due on 04/15/2027 BONE DENSITY Completed ADULT PREVNAR-13 Completed INFLUENZA Completed HEPATITIS C SCREENING Completed Data reviewed Component Latest Ref Rng AND Units 11/29/2018 08/17/2019 Protein, Total 6.3 - 8.0 g/dL 7.1 Albumin 3.9 - 4.9 g/dL 4.0 Calcium 8.5 - 10.2 mg/dL 9.0 Bilirubin, Total 0.2 - 1.3 mg/dL 0.5 Alkaline Phosphatase 34 - 123 U/L 64 AST 13 - 35 U/L 17 Glucose 74 - 99 mg/dL 198 (H) BUN 7 - 21 mg/dL 12 Creatinine 0.58 - 0.96 mg/dL 0.73 Sodium 136 - 144 mmol/L 138 Potassium 3.7 - 5.1 mmol/L 4.0 Chloride 97 - 105 mmol/L 103 CO2 22 - 30 mmol/L 24 Anion Gap 9 - 18 mmol/L 11 ALT 7 - 38 U/L 12 eGFR- >60 eGFR-All Other Races . >60 WBC 3.70 - 11.00 k/uL 8.66 RBC 3.90 - 5.20 m/uL 4.25 Hemoglobin 11.5 - 15.5 g/dL 13.8 Hematocrit 36.0 - 46.0 % 42.2 MCV 80.0 - 100.0 fL 99.3 MCH 26.0 - 34.0 pG 32.5 MCHC 30.5 - 36.0 g/dL 32.7 RDW-CV 11.5 - 15.0 % 14.7 Platelet Count 150 - 400 k/uL 324 MPV 9.0 - 12.7 fL 10.0 Absolute nRBC <0.01 k/uL <0.01 WBC, [place] 3.70 - 11.00 k/uL 8.33 RBC, [place] 3.90 - 5.20 m/uL 4.05 Hemoglobin, [place] 11.5 - 15.5 g/dL 12.2 Hematocrit, [place] 36.0 - 46.0 % 37.0 MCV, [place] 80.0 - 100.0 fL 91.4 MCH, [place] 26.0 - 34.0 pg 30.1 MCHC, [place] 30.5 - 36.0 g/dL 33.0 RDW, [place] 11.5 - 15.0 % 14.9 Platelet Cnt, [place] 150 - 400 k/uL 326 MPV, [place] 9.0 - 12.7 fL 9.6 Absol Gran Count 1.45 - 7.50 k/uL 5.44 Cholesterol, Total <200 mg/dL 196 Triglyceride <150 mg/dL 148 HDL Cholesterol >39 mg/dL 71 LDL Cholesterol <100 mg/dL 95 Non HDL Cholesterol <130 mg/dL 125 Fasting Time hrs 15 VLDL Cholesterol <30 mg/dL 30 (H) TC:HDL Ratio <5.10 2.76 LDL:HDL Ratio <2.54 1.34 Creatinine, Ur Random (UCRR) 20 - 300 mg/dL 185.4 Albumin, Urine Random 0.0 - 23.0 mg/L 13.5 Albumin/Creat Ratio 0 - 30 mg/g 7 Hemoglobin A1C 4.3 - 5.6 % 6.2 (H) Estimated Average Glucose mg/dL 131 LD 135 - 214 U/L 154 ASSESSMENT/PLAN: 1. Controlled type 2 diabetes mellitus w ithout complication, without long-term current use of insulin (HCC) - ICD9: 250.00, ICD 10: E11.9 (primary diagnosis) Controlled. - Continue current medications - Check HgA1C, fasting lipid panel and Urine for albumin/cre atinine ratio - Blood glucose monitoring on a twice a day schedule - Encouraged regular aerobic exercise and weight loss - Daily Asprin therapy recommended - Follow up in 3 months, sooner should any other issues deshawn e. - Discussed diabetic education issues of termite helper diabetic complications, hypoglycemic symptoms, hyperglycemic sym ptoms, diet, medications- side effects and need for compliance and importance of exercise with sowmya ent. - HGB A1C - ALBUMIN/CREAT RATIO RND UR - LIPID PANEL, NONFASTING 2. Moderate episode of recurrent major depressive disorder ( HCC) - ICD9: 296.32, ICD10: F33.1 Continue prozac. Given infor mation for home on SAD and light therapy. Call with worsening symptoms. 3. JAJA (obstructive sleep apnea) - ICD9: 327.23, ICD10: G47. 33 Controlled on Bipap 4. Essential hypertension - ICD9: 401.9, ICD10: I10 - suboptimal control - Begin losartan(Cozaar) - Encouraged dietary sodium restriction/DASH diet - Recommended regular aerobic exercise. - Reviewed risks of HTN and principles of treatment - Goal of BP <130/80 5. Hypercholesteremia - ICD9: 272.0, ICD10: E78.00 - to be determined upon return of lab results - Continue current medication. - Encouraged following a low fat, low cholesterol diet. - Discussed the benefits of regular aerobic exercise and nancy ght loss. 6. 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 Leiva. MD Jon Philip MD 10/20/2019 10:46 AM Signed Light therapy with 6,000 to 10,000 lux lamp for 30 minutes day. Referring Provider: SELF [200] Allergies As of Date: 10/20/2019 Noted Allergy Reaction LISINOPRIL 10/20/2019 3 - Cough SEASONAL ALLERGIES 05/11/2016 5 - Intolerance Date Reviewed: 10/20/2019 Reviewed by: Venecia Garcia Ma - Fully Assessed Reason for Visit: Medication Follow-up [270] Primary Visit Diagnosis:Controlled type 2 diabetes mellitus without complication, without long-term current use of insulin (HCC) [E11.9] Other Visit Diagnoses:Moderate episode of recurr ent major depressive disorder (HCC) [F33.1] JAJA (obstructive sleep apnea) [G47.33] Essential hypertension [I10] Hypercholesteremia [E78.00] Carcinoid tumor of left lung [D3A.090] Order(s):HGB A1C [OLXEK3T] Order #: [id number] FUTURE losartan (COZAAR) 25 mg tabletTake 1 tablet by mouth once daily.Disp: 30 tabletRfl: 5 ALBUMIN/CREAT RATIO RND UR [SQUACR] Order #: [id number] FUTU RE LIPID PANEL, NONFASTING [SQLIPNF] Order #: [id number] FUTURE Prescriptions as of 10/20/2019 Sig: HYDROXYZINE HCL 25 MG TABLET Take 1 tablet by mouth every * CARVEDILOL 12.5 MG TABLET Take 12.5 mg by mouth twice d* ALBUTEROL SULFATE 2.5 MG/3 ML* Use 3 mL via nebulizer every * AMLODIPINE 10 MG TABLET Take 1 tablet by mouth once d* SIMVASTATIN 20 MG TABLET Take 1 tablet by mouth daily * FLUOXETINE 40 MG CAPSULE Take 1 capsule by mouth once * ALENDRONATE 70 MG TABLET Take 1 tablet by mouth once e* METFORMIN ER 500 MG TABLET,EX* Take 1 tablet by mouth twice * CALCIUM + D ORAL Take 2 tablets by mouth once * ASPIRIN 81 MG CHEWABLE TABLET Take 81 mg by mouth once jl* LOSARTAN 25 MG TABLET Take 1 tablet by mouth once d* ACETAMINOPHEN 500 MG TABLET Take 1 tablet by mouth every * Problem List As Of Date 10/20/2019 Noted Resolved 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 Transient cerebral ischemia [G45.9] 05/11/2016 More... Essential hypertension [I10] 05/11/2016 More... Hypercholesteremia [E78.00] 05/11/2016 Type 2 diabetes mellitus without complication, *05/11/2016 More... 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 DISPOSITION AND FOLLOW-UP 01/07/2017 01/09/2017 More... Mechanical venous thromboembolism (VTE) prophyl*01/07/2017 0 01/09/2017 More... Pain, postoperative, acute [G89.18] 01/07/2017 More... Morbid obesity with BMI of 50.0-59.9, adult (HC*01/07/2017 More... Obstructive sleep apnea syndrome [G47.33] 01/07/2017 More... Osteopenia [M85.80] Status post cataract extraction and insertion o*08/10/2017 History of lung cancer [Z85.118] 08/16/2017 Status post cataract extraction and insertion o*08/26/2017 Type 2 diabetes mellitus without retinopathy (H*01/03/2018 Vitreous floaters of both eyes [H43.393] 01/03/2018 Pseudophakia of both eyes [Z96.1] 01/03/2018 BPPV (benign paroxysmal positional vertigo) [H8*03/21/2018 Neuropathy (HCC) [G62.9] Dermatochalasis of both upper eyelids [H02.831,*01/03/2019 Other instructions from your clinician: Light therapy with 6,000 to 10,000 lux lamp for 30 minutes e day. Prescriptions ordered this encounter Disp Refills Start End LOSARTAN 25 MG TABLET 30 t* 5 10/20/2019 Route: ORAL Sig: Take 1 tablet by mouth once daily. Medications Discontinued During This Encounter cyclobenzaprine (FLEXERIL) 5 mg tabl* 30 t* 0 05/18/2019 020 Route: ORAL Sig: Take 1 tablet by mouth twice daily as needed for Muscle Spasm. Patient not taking: Reported on 10/20/2019 Disc: Reason for discontinue is not on file. ranitidine (ZANTAC) 150 mg tablet 60 t* 11 06/22/2019 10/20/19 20 Route: ORAL Sig: Take 1 tablet by mouth twice daily. Patient not taking: Reported on 10/20/2019 Disc: Reason for discontinue is not on file. Disposition: Return in about 3 months (around 01/18/2020) for routine. Follow-up and Disposition History Recorded Encounter Status:Closed by JON VALENZUELA MD on 10/20/19 obsolete on 2019-08 OBSOLETE Refill (FAMPWS) Normal 08-23-2019 [facility] BRI JIMÉNEZ ([id number]) 1950 [facility] Time Provider Department ([id number]) 08/23/19 JON VALENZUELA () BERNARDWS During your visit today, we recorded the following informati on about you: Serena Goodwin 08/23/2019 12:20 PM Signed Patient has been identified by name and date of : Yes Pending Prescriptions Disp Refills HYDROXYZINE HCL 25 MG TABLET 90 tablet 1 Sig: Take 1 tablet by mouth every 8 hours as needed. REJI: No RX INSTRUCTIONS: Patient only has 1 pill left. Patient aware RX will be sent to pharmacy. No need to notify patient. Serena Gutierrez LPN 08/23/2019 12:25 PM Signed Patient phones requesting refills as follows: Pending Prescriptions Disp Refills HYDROXYZINE HCL 25 MG TABLET 90 tablet 1 Sig: Take 1 tablet by mouth every 8 hours as needed. REJI: No TREVOR: 07/23/19 NOV: None scheduled Last Refill: 03/07/19 #90 1 refill Laine Gutierrez LPN Allergies As of Date: 08/23/2019 Noted Allergy Reaction SEASONAL ALLERGIES 05/11/2016 5 - Intolerance Date Reviewed: 08/17/2019 Reviewed by: Laine Acevedo - Fully Assessed Reason for Visit: Refill Request [94] Order(s):hydrOXYzine HCl (ATARAX) 25 mg tabletTake 1 t ablet by mouth every 8 hours as needed.Disp: 90 tabletRfl: 1 Prescriptions as of 08/23/2019 Sig: HYDROXYZINE HCL 25 MG TABLET Take 1 tablet by mouth every * CARVEDILOL 12.5 MG TABLET Take 12.5 mg by mouth twice d* ALBUTEROL SULFATE 2.5 MG/3 ML* Use 3 mL via nebulizer every * AMLODIPINE 10 MG TABLET Take 1 tablet by mouth once d* RANITIDINE 150 MG TABLET Take 1 tablet by mouth twice * SIMVASTATIN 20 MG TABLET Take 1 tablet by mouth daily * FLUOXETINE 40 MG CAPSULE Take 1 capsule by mouth once * CYCLOBENZAPRINE 5 MG TABLET Take 1 tablet by mouth twice * ALENDRONATE 70 MG TABLET Take 1 tablet by mouth once e* METFORMIN ER 500 MG TABLET,EX* Take 1 tablet by mouth twice * CALCIUM + D ORAL Take 2 tablets by mouth once * ACETAMINOPHEN 500 MG TABLET Take 1 tablet by mouth every * ASPIRIN 81 MG CHEWABLE TABLET Take 81 mg by mouth once jl* Problem List As Of Date 08/23/2019 Noted Resolved 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 Transient cerebral ischemia [G45.9] 05/11/2016 More... Essential hypertension [I10] 05/11/2016 More... Hypercholesteremia [E78.00] 05/11/2016 Type 2 diabetes mellitus without complication, *05/11/2016 More... 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 DISPOSITION AND FOLLOW-UP 01/07/2017 01/09/2017 More... Mechanical venous thromboembolism (VTE) prophyl*01/07/2017 0 01/09/2017 More... Pain, postoperative, acute [G89.18] 01/07/2017 More... Morbid obesity with BMI of 50.0-59.9, adult (HC*01/07/2017 More... Obstructive sleep apnea syndrome [G47.33] 01/07/2017 More... Osteopenia [M85.80] Status post cataract extraction and insertion o*08/10/2017 History of lung cancer [Z85.118] 08/16/2017 Status post cataract extraction and insertion o*08/26/2017 Type 2 diabetes mellitus without retinopathy (H*01/03/2018 Vitreous floaters of both eyes [H43.393] 01/03/2018 Pseudophakia of both eyes [Z96.1] 01/03/2018 BPPV (benign paroxysmal positional vertigo) [H8*03/21/2018 Neuropathy (HCC) [G62.9] Dermatochalasis of both upper eyelids [H02.831,*01/03/2019 Prescriptions ordered this encounter Disp Refills Start End HYDROXYZINE HCL 25 MG TABLET 90 t* 1 08/23/2019 Route: ORAL Sig: Take 1 tablet by mouth every 8 hours as needed. Medications Discontinued During This Encounter hydrOXYzine HCl (ATARAX) 25 mg tablet 90 t* 1 03/07/201908/12 Route: ORAL Sig: Take 1 tablet by mouth every 8 hours as needed. Disc: Reason for discontinue is not on file. Encounter Status:Closed by PODLOGARARELIS CNP on 08/23/19 [place] abs gr + cbc on 2019-08-17 Absol Gran Count 5.44 1.45-7.50 k/uL Normal 08-17-2019 [facility] ([id number]) Erythrocyte distribution 14.9 11.5-15.0 % Normal 08-17 [facility] width (RBC) [Ratio] [facility] ([id number]) Hematocrit (Bld) [Volume 37.0 36.0-46.0 % Normal 08-17 [facility] fraction] [facility] ([id number]) Hemoglobin (Bld) 12.2 11.5-15.5 g/dL Normal 08-17-2019 [facility] [Mass/Vol] [facility] ([id number]) MCH (RBC) [Entitic mass] 30.1 26.0-34.0 pg Normal 08-17 [facility] ([id number]) MCHC (RBC) [Mass/Vol] 33.0 30.5-36.0 g/dL Normal 08-17-20 [facility] ([id number]) MCV (RBC) [Entitic vol] 91.4 80.0-100.0 fL Normal 08-17 [facility] ([id number]) Platelet mean volume 9.6 9.0-12.7 fL Normal 9 [facility] (Bld) [Entitic vol] [facility] ([id number]) Comment: Result Comment: Test perform ed by: [facility] [place], [address] [place], [place] [address]. RBC (Bld) [#/Vol] 4.05 3.90-5.20 m/uL Normal 08-17-2019 [facility] ([id number]) WBC (Bld) [#/Vol] 8.33 3.70-11.00 k/uL Normal 08-17-2019 [facility] ([id number]) [place] Platelet Cnt 326 150-400 k/uL Normal 9 [facility] ([id number]) progress on 2019-08 PROGRESS HNO ID: [id number] Normal 08-17-2019 [facility] Author: Umang adair ([id number]) Service: ? Author Type: Physician Type: Progress Notes Filed: 08/18/2019 7:31 AM Note Text: PATIENT NAME: Bri Jiménez. CLINIC NO: [id number]. ATTENDING PHYSICIAN: Umang Leiva MD. DATE OF SERVICE: 08/17/2019 ?? 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 AFSHIN ?? HPI: 68-year-old obese female with history of hypertension, type 2 diabetes mellitus, hypercholesterolemia, and asthma who pres ented last month from a TIA. She presented to emergency room because of left sided weakness and numbness with lightheadedness and slurred speec h. She was not able to move her left arm and leg. Initially and subsequentl y improved. Patient did not fall or has loss of consciousness. She was n ot feeling well for a week prior to her TIA. ?? She was sent to the local ER and then transferred to / [facility]. MRA and MRI scan of the brain was done. She was placed on Pl avix along with aspirin and Zocor after discharge. She was scheduled fo r Carotid Doppler study. During her hospitalization, her platelet coun ts was elevated at 880,000, but she had a normal hemoglobin and hem atocrit. Patient has no history of fever, chills or night sweats. She has no history of pruritus or early satiety. She denies weight loss , change in bowel habits or urinary symptoms. ?? She has a family history of cancer. She had uterine cancer 3 0 years ago and she had a complete hysterectomy followed by radiation th . Patient had a mammogram earlier this year and it was normal. She nev er had a colonoscopy screening. Patient has mostly recovered from her TIA. 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 Patient was also told that she may have sleep apnea and may require CPAP treatment. ?? Patient had?surgery for stage II B, [id number] typical carcinoi d in 01/07/2017. ? SURGICAL HX: 01/07/2017: Left video-assisted thoracic surgery. Wedge resec tion of the left lower lobe. ?? Surgical Pathology: FINAL DIAGNOSIS Lung, left lower lobe, wedge resection - Typical carcinoid t umor (3.7 cm). (See synoptic template). - Metastatic carcinoid tumor, involving one of one intrapare nchymal lymph node (09/12). - Parenchymal margin negative. SM/rw 01/10/2017 ? Current treatment:?Hydrea 500 mg every other day ?? Interim history: ?Patient has been doing well with Hydrea an d ASA. She has no fever, chills or night sweats. No GI symptoms or diarrhea or early satiety. Recently she was in the hospital for pneumonia . She is stil l on oxygen but has no shortness of breath at rest. She has some cough i n the morning as well as wheezing on exam. She also used BiPAP at night fo r sleep apnea. ?? All medications AND allergies updated and reviewed by me. ?? REVIEW OF SYSTEMS: ?? CONSTITUTIONAL: No fevers, chills, nightsweats, unintended w eight loss HEENT: Denies frequent or severe heaches, nasal congestion/s inus symptoms, problematic allergy problems. EYES: No diplopia or blurry vision. CARDIOVASCULAR: No chest pain, dyspnea, palpitations, orthop fern, PND, ankle edema. PULM: No dyspnea, unexplained cough. GI: No dysphagia/odynophagia, problematic reflux, constipati on, diarrhea, changes in stool habits, hematochezia, melena. : No new urinary complaints, including dysuria, gross colin turia or pyuria. NEURO: No new balance problems, peripheral weakness/ +parest hesias or numbness of lower extremity. MUSC-SKEL: No new joint pain, swelling, or erythema. PSY: No concerns regarding depression, anxiety or panic. INTEGUMENTARY: No new skin changes (rash, new or changing mo le, new growth) ?? PHYSICAL EXAMINATION: 67-year-old female in no acute distres s BP 134/61 Pulse 68 Temp (Src) 98.5 (Temporal) Wt 276 l b (125.2kg) SpO2 96[With oxygen]% HEENT: Head is normocephalic, atraumatic. Sclerae white, con junctivae pink. PEERL. EOMs are intact. Oropharynx is benign. LYMPHATICS: There is no palpable adenopathy in the neck, sup raclavicular region, axillae, or groin. BREASTS: Normal no palpable mass, nodules, LUNGS: Thoracotomy scar is clean and healed. Lungs are clear to percussion and auscultation. Expiratory wheezing in the left lung base. HEART: Heart is normal without murmurs, gallops, or rubs. ABDOMEN: Obese, Soft and nontender without organomegaly. No masses can be palpated. EXTREMITIES: Are without edema. 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 No sensory deficit, normal gait. ?? LABORATORY DATA: Component Latest Ref Rng AND Units 08/17/2019 WBC, [place] 3.70 - 11.00 k/uL 8.33 RBC, [place] 3.90 - 5.20 m/uL 4.05 Hemoglobin, [place] 11.5 - 15.5 g/dL 12.2 Hematocrit, [place] 36.0 - 46.0 % 37.0 MCV, [place] 80.0 - 100.0 fL 91.4 MCH, [place] 26.0 - 34.0 pg 30.1 MCHC, [place] 30.5 - 36.0 g/dL 33.0 RDW, [place] 11.5 - 15.0 % 14.9 Platelet Cnt, [place] 150 - 400 k/uL 326 MPV, [place] 9.0 - 12.7 fL 9.6 Absol Gran Count 1.45 - 7.50 k/uL 5.44 Component Latest Ref Rng AND Units 08/17/2019 Protein, Total 6.3 - 8.0 g/dL 7.1 Albumin 3.9 - 4.9 g/dL 4.0 Calcium 8.5 - 10.2 mg/dL 9.0 Bilirubin, Total 0.2 - 1.3 mg/dL 0.5 Alkaline Phosphatase 34 - 123 U/L 64 AST 13 - 35 U/L 17 Glucose 74 - 99 mg/dL 198 (H) BUN 7 - 21 mg/dL 12 Creatinine 0.58 - 0.96 mg/dL 0.73 Sodium 136 - 144 mmol/L 138 Potassium 3.7 - 5.1 mmol/L 4.0 Chloride 97 - 105 mmol/L 103 CO2 22 - 30 mmol/L 24 Anion Gap 9 - 18 mmol/L 11 ALT 7 - 38 U/L 12 eGFR- >60 eGFR-All Other Races . >60 LD 135 - 214 U/L 154 CXR:Comparison: ?02/15/2019 RESULT: Lungs and pleura: ?No consolidation. No lung mass. No pleura l effusion. ? Stable linear scar in the left Cardiomediastinal silhouette: ?Stable cardiomediastinal silh ouette. Moderate degenerative change and osteophytosis throughout th e dorsal spine IMPRESSION: No acute radiographic abnormality. ASSESSMENT:?67-year-old lady with possible essential thrombo cytosis, JAK2 negative. Her platelet count?is normal with decrease doses o f Hydrea. ?? Stage IIb- T2, N1, Mo?neuroendocrine tumor of the left lung. Status post resection on 01/07/17.. AFSHIN - Restrictive lung disease and possible asthma? ?? PLAN:? - Discontinue Hydrea, but continue with aspirin 81 mg once d aily. - Monitor CBC every 3 months x 2 - repeat CBC, CMP, LDH, chromogranin A level and office visi t in 6 months. 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 ? Umang Leiva MD Cc: Dr. Patrick Sheridanley ld on 2019-08-17 LD 154 135-214 U/L Normal 08-17-2019 [facility] ([id number]) comp metabolic panel on 2019-08-17 Albumin [Mass/Vol] 4.0 3.9-4.9 g/dL Normal 08-17-2019 [facility] ([id number]) ALP [Catalytic 64 34-123 U/L Normal 08-17-2019 [facility] activity/Vol] [place] and (72692) ALT [Catalytic 12 7-38 U/L Normal 08-17-2019 [facility] activity/Vol] [place] and (58129) Anion gap 11 9-18 mmol/L Normal 08-17-2019 [facility] AST [Catalytic 17 13-35 U/L Normal 08-17-2019 [facility] activity/Vol] [place] and (07891) Bilirubin [Mass/Vol] 0.5 0.2-1.3 mg/dL Normal 9 [facility] ([id number]) Calcium [Mass/Vol] 9.0 8.5-10.2 mg/dL Normal 08-17-2019 [facility] ([id number]) Chloride [Moles/Vol] 103 97-105 mmol/L Normal 9 [facility] ([id number]) CO2 [Moles/Vol] 24 22-30 mmol/L Normal 08-17-2019 [facility] ([id number]) Creatinine 0.73 0.58-0.96 mg/dL Normal 08-17-2019 [facility] [Mass/Vol] [facility] ([id number]) eGFR- Amer. >60 Normal 08-17-2019 [facility] ([id number]) GFR/1.73 sq M >60 mL/min/{1.73_m Normal 08-17-2019 [facility] predicted among 2} [facility] ([id number]) non-blacks MDRD (S/P/Bld) [Vol rate/Area] Comment: Result Comment: eGFR (Estima darby GFR) Units of measure: mL/min/1.73 meters squared eGFR is derived from the ree xpressed MDRD Study equation using the following parameters: serum creatinine, age, gender and race. The creatinine assay has been calibrated to be traceable to IDMS. An eGFR <60 mL/min/1.73m2 fo r >3 months is consistent with chronic kidney disease. Refer to KDOQI guidelines for clinical interpretation. In patients with unstable re nal function, e.g. those with acute kidney injury, the eGFR may not accurately reflect actual GFR. Glucose [Mass/Vol] 198 74-99 mg/dL High 08-17-2019 [facility] ([id number]) Comment: Result Comment: The [place] [employer] (ADA) provides guidance for cutoff values for fasting glucose and random glucose. The ADA defines fasting as no caloric intake for at least 8 hours. Fas ting plasma glucose results between 100 to 125 mg/dL indicate increased risk for diabetes (prediabetes). Fasting plasma glucose resul ts greater than or equal to 126 mg/dL meet the criteria for diagnosis of diabetes. In the absence of unequivocal hyperglycemia, results should be confirmed by repeat testing. In a patient with classic s ymptoms of hyperglycemia or hyperglycemic crisis, random plasma glucose results greater than or equal to 200 mg/dL meet the criteria for diagnosis of diabetes. Reference: Standards of [facility] Care in Diabetes 2016, [place] [employer] Association. Diabetes Care. 2016.39(Suppl 1). Potassium [Moles/Vol] 4.0 3.7-5.1 mmol/L Normal 08-17-20 19 [facility] ([id number]) Protein [Mass/Vol] 7.1 6.3-8.0 g/dL Normal 08-17-2019 [facility] ([id number]) Sodium [Moles/Vol] 138 136-144 mmol/L Normal 08-17-2019 [facility] (14514) Urea nitrogen [Mass/Vol] 12 7-21 mg/dL Normal 08-17 [facility] ([id number]) cnovsp on 6 CNOVSP Visit (SP) Office (ROSALVA) Normal [facility] BRI JIMÉNEZ ([id number]) 1950 [facility] Date Time Provider Department ([id number]) 08/17/19 11:20 AM UMANG LEIVA During your visit today, we recorded the following informati on about you: Temperature Pulse Blood pressure Weight 98.5 degrees 68/minute 134/61 125.2 kg Umang Leiva MD 08/17/2019 11:55 AM Signed Stop Hydrea and Albuterol nebs 4 x daily as needed for cough or wheezing See Dr. Zheng next year. Umang Leiva MD 08/18/2019 7:31 AM Signed PATIENT NAME: Bri Jiménez. CLINIC NO: [id number]. ATTENDING PHYSICIAN: Umang Leiva MD. DATE OF SERVICE: 08/17/2019 ?? 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 AFSHIN ?? HPI: 68-year-old obese female with history of hypertension , type 2 diabetes mellitus, hypercholesterolem ia, and asthma who presented last month from a TIA. She presented to emergency room because of left sided weak ness and numbness with lightheadedness and slurred speech. She was not able to move her left arm and leg. Initially and subsequently impr gunnar. Patient did not fall or has loss of consciousness. She was not feeling well for a week prior to her TIA. ?? She was sent to the local ER and then transferred to [facility]. MRA and MRI scan of the brain wa s done. She was placed on Plavix along with aspirin and Zocor after discharge. She was sched uled for Carotid Doppler study. During her hospitalization, her mel telet counts was elevated at 880,000, but she had a normal hemoglobin and hematocrit. Patient has no histo ry of fever, chills or night sweats. She has no history of pruritus or early satiet y. She denies weight loss, change in bowel habits or urinary symptoms. ?? She has a family history of cancer. She had uterine cancer 30 years ago and she had a complete hysterectomy followed by radiation therapy. P stuartbeltran had a mammogram earlier this year and it was normal. She never had a colonoscopy screening. Patient has mostly recovered from her TIA. 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 Patient was also told that she may have sle ep apnea and may require CPAP treatment. ?? Patient had?surgery for stag e II B, mL1ylF0 typical carcinoid in 01/07/2017. ? SURGICAL HX: 01/07/2017: Left video-assisted thoracic surgery. Wedge resection of the left lower lobe. ?? Surgical Pathology: FINAL DIAGNOSIS Lung, left lower lobe, wedge resection - Typical carcinoid t umor (3.7 cm). (See synoptic template). - Metastatic carcinoid tumor, involving one of one intrapare nchymal lymph node (09/12). - Parenchymal margin negative. SM/rw 01/10/2017 ? Current treatment:?Hydrea 500 mg every other day ?? Interim history: ?Patient has been doing well wi th Hydrea and ASA. She has no fever, chills or night sweats. No GI symptoms or diarrhea or early satiety. Recently she was in the hosp ital for pneumonia . She is still on oxygen but has no shortness of breath at rest. She has some cough in the morning as well as wheezing on exam. 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 ?? All medications AND allergies updated and reviewed by me. ?? REVIEW OF SYSTEMS: ?? CONSTITUTIONAL: No fevers, chills, nightsweats, unintended w eight loss HEENT: Denies frequent or severe heaches, nasal congestion/s inus symptoms, problematic allergy problems. EYES: No diplopia or blurry vision. CARDIOVASCULAR: No chest pain, dyspnea, palpitations, orth opnea, PND, ankle edema. PULM: No dyspnea, unexplained cough. GI: No dysphagia/odynophagia, problematic reflux, constipati on, diarrhea, changes in stool habits, hematochezia, melena. : No new urinary complaints, including dysuria, fabio s hematuria or pyuria. NEURO: No new balance problems, peripher al weakness/ +paresthesias or numbness of lower extremity. MUSC-SKEL: No new joint pain, swelling, or erythema. PSY: No concerns regarding depression, anxiety or panic. INTEGUMENTARY: No new skin changes (rash, new or changing mole, new growth) ?? PHYSICAL EXAMINATION: 67-year-old female in no acute distres s BP 134/61 Pulse 68 Temp (Src) 98.5 ( Temporal) Wt 276 lb (125.2kg) SpO2 96[With oxygen]% HEENT: Head is normocephalic, atraumatic. Sclerae white, c onjunctivae pink. PEERL. EOMs are intact. Oropharynx is benign. LYMPHATICS: There is no palpable adenopathy in the neck, sup raclavicular region, axillae, or groin. BREASTS: Normal no palpable mass, nodules, LUNGS: Thoracotomy scar is clean and hea led. Lungs are clear to percussion and auscultation. Expiratory wheezing in the left lung base. HEART: Heart is normal without murmurs, gallops, or rubs. ABDOMEN: Obese, Soft and nontender without organomegaly. No masses can be palpated. EXTREMITIES: Are without edema. NEUROLOGIC: Exam is physiologic; minimal left hand gri p weakness. No sensory deficit, normal gait. ?? LABORATORY DATA: Component Latest Ref Rng AND Units 08/17/2019 WBC, [place] 3.70 - 11.00 k/uL 8.33 RBC, [place] 3.90 - 5.20 m/uL 4.05 Hemoglobin, [place] 11.5 - 15.5 g/dL 12.2 Hematocrit, [place] 36.0 - 46.0 % 37.0 MCV, [place] 80.0 - 100.0 fL 91.4 MCH, [place] 26.0 - 34.0 pg 30.1 MCHC, [place] 30.5 - 36.0 g/dL 33.0 RDW, [place] 11.5 - 15.0 % 14.9 Platelet Cnt, [place] 150 - 400 k/uL 326 MPV, [place] 9.0 - 12.7 fL 9.6 Absol Gran Count 1.45 - 7.50 k/uL 5.44 Component Latest Ref Rng AND Units 08/17/2019 Protein, Total 6.3 - 8.0 g/dL 7.1 Albumin 3.9 - 4.9 g/dL 4.0 Calcium 8.5 - 10.2 mg/dL 9.0 Bilirubin, Total 0.2 - 1.3 mg/dL 0.5 Alkaline Phosphatase 34 - 123 U/L 64 AST 13 - 35 U/L 17 Glucose 74 - 99 mg/dL 198 (H) BUN 7 - 21 mg/dL 12 Creatinine 0.58 - 0.96 mg/dL 0.73 Sodium 136 - 144 mmol/L 138 Potassium 3.7 - 5.1 mmol/L 4.0 Chloride 97 - 105 mmol/L 103 CO2 22 - 30 mmol/L 24 Anion Gap 9 - 18 mmol/L 11 ALT 7 - 38 U/L 12 eGFR- >60 eGFR-All Other Races . >60 LD 135 - 214 U/L 154 CXR:Comparison: ?02/15/2019 RESULT: Lungs and pleura: ?No consolidation. No lung mass. No pleura l effusion. ? Stable linear scar in the left Cardiomediastinal silhouette: ?Stable cardiomediastinal silh ouette. Moderate degenerative change and osteophytosis throughout th e dorsal spine IMPRESSION: No acute radiographic abnormality. ASSESSMENT:?67-year-old lady with possible essential thrombo cytosis, JAK2 negative. Her platelet count?is normal with decrease doses o f Hydrea. ?? Stage IIb- T2, N1, Mo?neuroendocrine tumor of the left lung. Status post resection on 01/07/17.. AFSHIN - Restrictive lung disease and possible asthma? ?? PLAN:? - Discontinue Hydrea, but continue with aspirin 81 mg once d aily. - Monitor CBC every 3 months x 2 - repeat CBC, CMP, LDH, chromogranin A level and office visi t in 6 months. 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 ? Umang Leiva MD Cc: Dr. Patrick Valenzuela Referring Provider: UMANG LEIVA [[id number]] Allergies As of Date: 08/17/2019 Noted Allergy Reaction SEASONAL ALLERGIES 05/11/2016 5 - Intolerance Date Reviewed: 08/17/2019 Reviewed by: Laine Acevedo - Fully Assessed Reason for Visit: Established Patient [[id number]] Primary Visit Diagnosis:Essential thrombocytosis (HCC) [D47. 3] Other Visit Diagnoses:Obstructive sleep apnea syndrome [G47. 33] Carcinoid tumor of left lung [D3A.090] Order(s):albuterol (PROVENTIL) 2.5 mg /3 mL (0.0 83 %) nebulizer solutionUse 3 mL via nebulizer every 6 hours as needed. OVER 5-15 MINUTES. FOR WHEEZING AND SHORTNESS OF BREATH.Disp: 100 VialRfl: 0 Level of Service: EST PATIENT VISIT LEVEL 3 [[id number]] Disposition: Return in about 6 months (around 02/16/2020). Follow-up and Disposition History Recorded Prescriptions as of 08/17/2019 Sig: CARVEDILOL 12.5 MG TABLET Take 12.5 mg by mouth twice d* AMLODIPINE 10 MG TABLET Take 1 tablet by mouth once d* RANITIDINE 150 MG TABLET Take 1 tablet by mouth twice * SIMVASTATIN 20 MG TABLET Take 1 tablet by mouth daily * FLUOXETINE 40 MG CAPSULE Take 1 capsule by mouth once * CYCLOBENZAPRINE 5 MG TABLET Take 1 tablet by mouth twice * ALENDRONATE 70 MG TABLET Take 1 tablet by mouth once e* METFORMIN ER 500 MG TABLET,EX* Take 1 tablet by mouth twice * HYDROXYZINE HCL 25 MG TABLET Take 1 tablet by mouth every * CALCIUM + D ORAL Take 2 tablets by mouth once * ACETAMINOPHEN 500 MG TABLET Take 1 tablet by mouth every * ASPIRIN 81 MG CHEWABLE TABLET Take 81 mg by mouth once jl* ALBUTEROL SULFATE 2.5 MG/3 ML* Use 3 mL via nebulizer every * Medication notes this encounter ASPIRIN 81 MG CHEWABLE TABLET >> Laine Acevedo MA 08/17/2019 10:59 AM >> LAINE ACEVEDO MA TueAug 17, 2019 10:59 AM Taking one tablet daily. METOPROLOL TARTRATE 100 MG TABLET >> Laine Acevedo MA 08/17/2019 10:58 AM >> LAINE ACEVEDO MA TueAug 17, 2019 10:58 AM No longer taking. NAPROXEN 500 MG TABLET >> Laine Acevedo MA 08/17/2019 10:58 AM >> LAINE ACEVEDO MA TueAug 17, 2019 10:58 AM as necessary LISINOPRIL 20 MG TABLET >> Laine Acevedo MA 08/17/2019 10:58 AM >> LAINE ACEVEDO MA TueAug 17, 2019 10:58 AM No longer taking. Problem List As Of Date 08/17/2019 Noted Resolved 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 Transient cerebral ischemia [G45.9] 05/11/2016 More... Essential hypertension [I10] 05/11/2016 More... Hypercholesteremia [E78.00] 05/11/2016 Type 2 diabetes mellitus without complication, *05/11/2016 More... 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 DISPOSITION AND FOLLOW-UP 01/07/2017 01/09/2017 More... Mechanical venous thromboembolism (VTE) prophyl*01/07/2017 0 01/09/2017 More... Pain, postoperative, acute [G89.18] 01/07/2017 More... Morbid obesity with BMI of 50.0-59.9, adult (HC*01/07/2017 More... Obstructive sleep apnea syndrome [G47.33] 01/07/2017 More... Osteopenia [M85.80] Status post cataract extraction and insertion o*08/10/2017 History of lung cancer [Z85.118] 08/16/2017 Status post cataract extraction and insertion o*08/26/2017 Type 2 diabetes mellitus without retinopathy (H*01/03/2018 Vitreous floaters of both eyes [H43.393] 01/03/2018 Pseudophakia of both eyes [Z96.1] 01/03/2018 BPPV (benign paroxysmal positional vertigo) [H8*03/21/2018 Neuropathy (HCC) [G62.9] Dermatochalasis of both upper eyelids [H02.831,*01/03/2019 Other instructions from your clinician: Stop Hydrea and Albuterol nebs 4 x daily as needed for cough or wheezing See Dr. Zheng next year. Encounter Status:Closed by UAMNG LEIVA MD on 08/18/19 xr chest 2v frontal/lat on 2019-07-23 XR CHEST 2V * * *Final Report* * * Normal 07-23 [facility] FRONTAL/LAT DATE OF EXAM: Jul 23 2019 2:00PM [facility] WOX 5291 - XR CHEST 2V FRONTAL/LAT / ([id number]) PROCEDURE REASON: Abnormal lung sounds * * * * Physician Interpretation * * * * EXAMINATION: CHEST RADIOGRAPH (2 VIEW FRONTAL and LATERAL) CLINICAL HISTORY: Abnormal lung sounds MQ: XC2_5 Comparison: 02/15/2019 RESULT: Lines, tubes, and devices: None. Lungs and pleura: No consolidation. No lung mass. No pleural effusion. Stable linear scar in the left Cardiomediastinal silhouette: Stable cardiomediastinal silho uette. Moderate degenerative change and osteophytosis throughout th e dorsal spine IMPRESSION: No acute radiographic abnormality. Honey Processor: PSCB Transcribe Date/Time: Jul 23 2019 2:02P Dictated by : PAN CHA MD This examination was interpreted and the report reviewed and electronically signed by: PAN CHA MD on Jul 23 2019 2:04PM EST [id number] progress on 2019-07 PROGRESS HNO ID: [id number] Normal 07-23-2019 [facility] Author: Michelle Krishnamurthy (Rt) ([id number]) Service: ? Author Type: Life Advisor Type: Progress Notes Filed: 07/23/2019 2:00 PM Note Text: Radiology Service Progress Note PATIENT NAME: Bri Jiménez DATE OF SERVICE: July 23, 2019 TIME: 1:49 PM PATIENT IDENTITY VERIFICATION COMPLETED USING TWO (2) METHOD S: Name and Date of confirmed by patient verbally. PATIENT GENDER DATA: Female. status: : No status: NO. PATIENT RELEVANT IMPLANT DATA REVIEWED: Not Applicable RADIOLOGY DEPARTMENT: General X-ray: Exam(s) Completed: Ches t X-Ray PERIPHERAL IV DATA: Not applicable SIGNED BY: RT Yessy July 23, 2019 1:49 PM PROGRESS HNO ID: [id number] Normal 07-23-2019 [facility] Author: Arelis Davisonveland ([id number]) Service: ? Author Type: Nurse Practitioner Type: Progress Notes Filed: 07/23/2019 1:41 PM Note Text: 07/23/2019 Patient presents with: Cough: cough, running nose started end last week This Team Access Model visit is a walk in encounter. It requ ired patient-provider interaction for the medical decision making as documented below. SUBJECTIVE: This is a 69 year old that is here today for Abo ve Complaints. Last week started with coughing and runny nose. Thinks a lit tle more SOB than usual, some productive cough. Feeling a little fatigued . Also productive cough. Still using O2@3.5L/NC continuously as wel l as at night with BiPap. Denies fevers, chills, sore throat,ear pain, sin us pain/pressure, wheezing, dyspnea, or chest pain. Not due to follow-up with pulmonology until September. May get off oxygen then. PAST MEDICAL HISTORY Diagnosis Date - Carcinoid tumor of left lung 10/28/2016 LLL 3 cm, seeing Dr. Leiva-hematology/oncology. - Cataracts, bilateral - Depression - Diabetes (HCC) Type II - Environmental allergies ??? - Fibromyalgia - Hypertension - Morbid obesity (HCC) 01/06/2017 BMI 50.3 - Neuropathy ([facility]) - JAJA (obstructive sleep apnea) CPAP - Osteopenia - Thrombocytosis ([facility]) Seeing Dr. Leiva; on hydroxyurea and blood thinners - TIA (transient ischemic attack) 04/26/2016 TIA - Uterine cancer (HCC) 1985 hysterectomy ALLERGIES Seasonal Allergies MEDICATIONS amLODIPine (NORVASC) 10 mg tablet, Take 1 tablet by mouth once daily. ranitidine (ZANTAC) 150 mg tablet, Take 1 tablet by mouth tw ice daily. simvastatin (ZOCOR) 20 mg tablet, Take 1 tablet by mouth edmond ly at bedtime. FLUoxetine HCl (PROZAC) 40 mg capsule, Take 1 capsule by christy th once daily. metoprolol tartrate, short acting, (LOPRESSOR) 100 mg tablet , Take 0.5 tablets by mouth twice daily. naproxen (NAPROSYN) 500 mg tablet, Take 1 tablet by mouth tw ice daily as needed (for pain/inflammation). Take with food. cyclobenzaprine (FLEXERIL) 5 mg tablet, Take 1 tablet by christy th twice daily as needed for Muscle Spasm. (Patient not taking: Reported on 06/22/2019 ) lisinopril (ZESTRIL, PRINIVIL) 20 mg tablet, Take one tablet daily. alendronate (FOSAMAX) 70 mg tablet, Take 1 tablet by mouth o nce each week. metFORMIN ER (GLUCOPHAGE XR) 500 mg 24 hr tablet, Take 1 tab let by mouth twice daily before meals. hydrOXYzine HCl (ATARAX) 25 mg tablet, Take 1 tablet by mout h every 8 hours as needed. hydroxyurea (HYDREA) 500 mg capsule, Take 1 capsule by mouth every 48 hours. albuterol HFA (VENTOLIN HFA) 90 mcg/actuation inhaler, Inhal e 2 Puffs as instructed every 4 hours as needed. (Patient not taking: Rep orted on 06/22/2019 ) meclizine (ANTIVERT) 12.5 mg tab, Take 1 tablet by mouth duane ry 6 hours as needed (dizziness). (Patient not taking: Reported on 019 ) CALCIUM CARBONATE/VITAMIN D3 (CALCIUM + D ORAL), Take 2 tabl ets by mouth once daily. acetaminophen (TYLENOL EXTRA STRENGTH) 500 mg tablet, Take 1 tablet by mouth every 8 hours as needed for Pain. aspirin 81 mg chewable tablet, Take 81 mg by mouth once jl y. No current facility-administered medications for this visit. Medications and allergies reviewed by this provider. SOCIAL HISTORY Social History Tobacco Use - Smoking status: Former Smoker Packs/day: 0.75 Years: 1.00 Pack years: 0.75 Types: Cigarettes Last attempt to quit: 08/25/1972 Years since quittin.9 - Smokeless tobacco: Never Used Substance Use Topics - Alcohol use: Yes Comment: Rare mixed drink - Drug use: No REVIEW OF SYSTEMS All other reviewed and negative other than HPI. OBJECTIVE: BP 120/60 (BP Site: Left Arm, BP Position: Sitting, BP Cuff Size: Large Adult) Pulse 65 Temp 37.3 ?C (99.1 ?F) Resp 16 Wt 12 6.6 kg (279 lb) SpO2 96% BMI 51.86 kg/m? . Vital signs reviewed by this provider. APPEARANCE Well appearing, alert, in no acute distress, well -hydrated, well nourished. and Morbidly obese EYES PERRLA, conjunctiva and sclera normal. EARS External ears normal, canals clear NOSE/SINUS Nares normal. Septum midline. Mucosa normal. No d rainage or sinus tenderness. THROAT normal, no erythema NECK Supple, no adenopathy; thyroid symmetric, HEART RRR with normal S1 and S2, no murmurs, no gallops, no JVD appreciated LUNG Slightly diminished right base. Faint crackles LLL, oth erwise CTA. Able to speak in full sentences without difficulty. SKIN Skin color, texture, turgor normal, no suspicious rashe s or lesions ASSESSMENT/PLAN: 1. Abnormal lung sounds - ICD9: 786.7, ICD10: R09.89 (primar y diagnosis) - will treat empirically - no red flag exam findings - red flag symptoms discussed verbalizes understanding - AZITHROMYCIN 250 MG TABLET - XR CHEST 2V FRONTAL/LAT - follow-up pending chest x-ray 2. Encounter for screening fecal occult blood testing - ICD9 : V76.51, ICD10: Z12.11 - FECAL OCCULT BLOOD TEST 3. Controlled type 2 diabetes mellitus without complication, without long-term current use of insulin (HCC) - ICD9: 250.00, ICD10 : E11.9 - due for A1c - HGB A1C Arelis Podlogar, SPECIAL AGENT.[employer] TO[employer] PROCESSING SUPERVISOR Prescription instructions reviewed with patient as applicabl e. Patient advised if symptoms do not improve or if symptoms worsen shaheen ner, to contact their primary care physician. Potential red flag sym ptoms discussed with the patient. Reviewed appropriate action plan to take if red flag symptoms occur. Patient agreeable to treatment plan . cnov on 2019-07-23 CNOV Office Visit (FAMPWS) Normal 07-23-20 [facility] B[facility] Galindo ([id number]) 1950 [facility] Date Time Provider Department ([id number]) 07/23/19 1:00 PM ARELIS ANDRADE ([place]) FAMPWS During your visit today, we recorded the following informati on about you: Temperature Pulse Respiration Blood pressure 99.1 degrees 65/minute 16/minute 120/60 Weight 126.6 kg Arelis DERIK Andrade.[place] 07/23/2019 1:41 PM Signed 07/23/2019 Patient presents with: Cough: cough, running nose started end last week This Team Access Model visit is a walk in encounter. It requ ired patient-provider interaction for the medical decision making as documented below. SUBJECTIVE: This is a 69 yea r old that is here today for Above Complaints. Last week started with coughing a nd runny nose. Thinks a little more SOB than usual, some productive cough. Feeling a little fatigued. Also productive cough. Still using O2@3.5L/NC continuously as well as at night with BiPap. Denies fevers, chills, sore throat,ear pain, sinus pain /pressure, wheezing, dyspnea, or chest pain. Not due to follow-up with pulmonology until Dom hameed. May get off oxygen then. PAST MEDICAL HISTORY Diagnosis Date - Carcinoid tumor of left lung 10/28/2016 LLL 3 cm, seeing Dr. Leiva-hematology/oncology. - Cataracts, bilateral - Depression - Diabetes (HCC) Type II - Environmental allergies ??? - Fibromyalgia - Hypertension - Morbid obesity (HCC) 01/06/2017 BMI 50.3 - Neuropathy (HCC) - JAJA (obstructive sleep apnea) CPAP - Osteopenia - Thrombocytosis ([facility]) Seeing Dr. Leiva; on hydroxyurea and blood thinners - TIA (transient ischemic attack) 04/26/2016 TIA - Uterine cancer (HCC) 1985 hysterectomy ALLERGIES Seasonal Allergies MEDICATIONS amLODIPine (NORVASC) 10 mg tablet, Take 1 tablet by mouth once daily. ranitidine (ZANTAC) 150 mg tablet, Take 1 tablet by mouth tw ice daily. simvastatin (ZOCOR) 20 mg tablet, Take 1 tablet by mouth edmond ly at bedtime. FLUoxetine HCl (PROZAC) 40 mg capsule, Take 1 capsule by christy th once daily. metoprolol tartrate, short acting, (LOPR ESSOR) 100 mg tablet, Take 0.5 tablets by mouth twice daily. naproxen (NAPROSYN) 500 mg t ablet, Take 1 tablet by mouth twice daily as needed (for pain/inflammation). Take with food. cyclobenzaprine (FLEXERIL) 5 mg tablet, Take 1 t ablet by mouth twice daily as needed for Muscle Spasm. (Patient not taking: Reported on ) lisinopril (ZESTRIL, PRINIVIL) 20 mg tablet, Take one tablet daily. alendronate (FOSAMAX) 70 mg tablet, Take 1 tablet by mouth o nce each week. metFORMIN ER (GLUCOPHAGE XR) 500 mg 24 h r tablet, Take 1 tablet by mouth twice daily before meals. hydrOXYzine HCl (ATARAX) 25 mg tablet, T korey 1 tablet by mouth every 8 hours as needed. hydroxyurea (HYDREA) 500 mg capsule, Take 1 capsule by mouth every 48 hours. albuterol HFA (VENTOLIN HFA) 90 mcg/actuation inhaler, Inhal e 2 Puffs as instructed every 4 hours as needed. (Patient not taking: Reported on 06/22/2019 ) meclizine (ANTIVERT) 12.5 mg tab, Take 1 tablet by mouth duane ry 6 hours as needed (dizziness). (Patient not taking: Reported on 019 ) CALCIUM CARBONATE/VITAMIN D3 (CALCIUM + D ORAL), Take 2 tablets by mouth once daily. acetaminophen (TYLENOL EXTRA STRENGTH) 500 mg tablet, Take 1 tablet by mouth every 8 hours as needed for Pain. aspirin 81 mg chewable tablet, Take 81 mg by mouth once jl y. No current facility-administered medications for this visit. Medications and allergies reviewed by this provider. SOCIAL HISTORY Social History Tobacco Use - Smoking status: Former Smoker Packs/day: 0.75 Years: 1.00 Pack years: 0.75 Types: Cigarettes Last attempt to quit: 08/25/1972 Years since quittin.9 - Smokeless tobacco: Never Used Substance Use Topics - Alcohol use: Yes Comment: Rare mixed drink - Drug use: No REVIEW OF SYSTEMS All other reviewed and negative other than HPI. OBJECTIVE: BP 120/60 (BP Site: Left Arm, BP Positio n: Sitting, BP Cuff Size: Large Adult) Pulse 65 Temp 37.3 ?C (99.1 ?F) Resp 16 Wt 126.6 k g (279 lb) SpO2 96% BMI 51.86 kg/m? . Vital signs reviewed by this provide r. APPEARANCE Well appearing, alert, in no acute distress, we ll-hydrated, well nourished. and Morbidly obese EYES PERRLA, conjunctiva and sclera normal. EARS External ears normal, canals clear NOSE/SINUS Nares normal. Septum midline. Mucosa normal . No drainage or sinus tenderness. THROAT normal, no erythema NECK Supple, no adenopathy; thyroid symmetric, HEART RRR with normal S1 and S2, no murmurs, no gallops, n o JVD appreciated LUNG Slightly diminished rig ht base. Faint crackles LLL, otherwise CTA. Able to speak in full sentences without difficulty. SKIN Skin color, texture, turgor normal, no suspicious rashe s or lesions ASSESSMENT/PLAN: 1. Abnormal lung sounds - ICD9: 786.7, ICD10: R09.89 (primar y diagnosis) - will treat empirically - no red flag exam findings - red flag symptoms discussed verbalizes understanding - AZITHROMYCIN 250 MG TABLET - XR CHEST 2V FRONTAL/LAT - follow-up pending chest x-ray 2. Encounter for screening fecal occult blood testing - ICD9: V76.51, ICD10: Z12.11 - FECAL OCCULT BLOOD TEST 3. Controlled type 2 diabetes mellitus w ithout complication, without long-term current use of insulin (HCC) - ICD9: 250.00, ICD10: E11.9 - due for A1c - HGB A1C Arelis Podlogar, SPECIAL AGENT.[facility] Prescription instructions reviewed with patient as applicable. Patient advised if symptoms do not improve or if symptoms worsen sooner, to contact their primary care physician. Potential red flag symptoms discusse d with the patient. Reviewed appropriate action plan to fatou e if red flag symptoms occur. Patient agreeable to treatment plan. Referring Provider: SELF [[id number]] Allergies As of Date: 07/23/2019 Noted Allergy Reaction SEASONAL ALLERGIES 05/11/2016 5 - Intolerance Date Reviewed: 07/23/2019 Reviewed by: Arelis [place]) Podlogar - Fully Assessed Reason for Visit: Cough [28] Cmt: cough, running nose started end last week Primary Visit Diagnosis:Abnormal lung sounds [R09.89] Other Visit Diagnoses:Encounter for screening fecal occult b lood testing [Z12.11] Controlled type 2 diabetes mellitus without complication, without long-term current use of insulin (HCC) [E11.9] Order(s):FECAL OCCULT BLOOD TEST [SQIFOBT] Order #: [id number] FUTURE azithromycin (ZITHROMAX Z-EUGENIA) 250 mg tabletTake 2 tablets d ay one, then, 1 tablet daily until gone.Disp: 1 PackageRfl: 0 XR CHEST 2V FRONTAL/LAT [[id number]] Order #: [id number] FUTURE HGB A1C [QTNCW7K] Order #: [id number] FUTURE Prescriptions as of 07/23/2019 Sig: AMLODIPINE 10 MG TABLET Take 1 tablet by mouth once d* RANITIDINE 150 MG TABLET Take 1 tablet by mouth twice * SIMVASTATIN 20 MG TABLET Take 1 tablet by mouth daily * FLUOXETINE 40 MG CAPSULE Take 1 capsule by mouth once * METOPROLOL TARTRATE 100 MG TA* Take 0.5 tablets by mouth twi * NAPROXEN 500 MG TABLET Take 1 tablet by mouth twice * LISINOPRIL 20 MG TABLET Take one tablet daily. ALENDRONATE 70 MG TABLET Take 1 tablet by mouth once e* METFORMIN ER 500 MG TABLET,EX* Take 1 tablet by mouth twice * HYDROXYZINE HCL 25 MG TABLET Take 1 tablet by mouth every * HYDROXYUREA 500 MG CAPSULE Take 1 capsule by mouth every* CALCIUM + D ORAL Take 2 tablets by mouth once * ACETAMINOPHEN 500 MG TABLET Take 1 tablet by mouth every * ASPIRIN 81 MG CHEWABLE TABLET Take 81 mg by mouth once jl* AZITHROMYCIN 250 MG TABLET Take 2 tablets day one, then,* CYCLOBENZAPRINE 5 MG TABLET Take 1 tablet by mouth twice * Patient not taking: Reported on 06/22/2019 ALBUTEROL SULFATE HFA 90 MCG/* Inhale 2 Puffs as instructed * Patient not taking: Reported on 06/22/2019 MECLIZINE 12.5 MG TABLET Take 1 tablet by mouth every * Patient not taking: Reported on 06/22/2019 Problem List As Of Date 07/23/2019 Noted Resolved 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 Transient cerebral ischemia [G45.9] 05/11/2016 More... Essential hypertension [I10] 05/11/2016 More... Hypercholesteremia [E78.00] 05/11/2016 Type 2 diabetes mellitus without complication, *05/11/2016 More... 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 DISPOSITION AND FOLLOW-UP 01/07/2017 01/09/2017 More... Mechanical venous thromboembolism (VTE) prophyl*01/07/2017 0 01/09/2017 More... Pain, postoperative, acute [G89.18] 01/07/2017 More... Morbid obesity with BMI of 50.0-59.9, adult (HC*01/07/2017 More... Obstructive sleep apnea syndrome [G47.33] 01/07/2017 More... Osteopenia [M85.80] Status post cataract extraction and insertion o*08/10/2017 History of lung cancer [Z85.118] 08/16/2017 Status post cataract extraction and insertion o*08/26/2017 Type 2 diabetes mellitus without retinopathy (H*01/03/2018 Vitreous floaters of both eyes [H43.393] 01/03/2018 Pseudophakia of both eyes [Z96.1] 01/03/2018 BPPV (benign paroxysmal positional vertigo) [H8*03/21/2018 Neuropathy (HCC) [G62.9] Dermatochalasis of both upper eyelids [H02.831,*01/03/2019 Prescriptions ordered this encounter Disp Refills Start End AZITHROMYCIN 250 MG TABLET 1 Pa* 0 07/23/2019 07/28/2019 Sig: Take 2 tablets day one, then, 1 tablet daily until gone . Follow-up and Disposition History Recorded Encounter Status:Closed by NEELAMLOGARELIS OBRIEN CNP on 07/23/19 progress on 2019-06 PROGRESS HNO ID: [id number] Normal 07-12-2019 [facility] Author: Julianna Melissa [facility] ([id number]) Service: ? Author Type: ? Type: Progress Notes Filed: 07/12/2019 9:57 AM Note Text: Radiology Service Progress Note PATIENT NAME: Bri Jiménez DATE OF SERVICE: July 12, 2019 TIME: 9:57 AM PATIENT IDENTITY VERIFICATION COMPLETED USING TWO (2) METHOD S: Name and Date of confirmed by patient verbally. PATIENT GENDER DATA: Female. status: : No status: NO. PATIENT RELEVANT IMPLANT DATA REVIEWED: Not Applicable RADIOLOGY DEPARTMENT: Mammography PERIPHERAL IV DATA: Not applicable SIGNED BY: Julianna Melissa Rt July 12, 2019 9:57 AM [facility] screening on 30-06-31 [facility] SCREENING * * *Final Report* * * Normal [facility] DATE OF EXAM: Jul 12 2019 9:56AM [facility] 0581 - [facility] SCREENING / ([id number]) PROCEDURE REASON: Visit for screening mammogram * * * * Physician Interpretation * * * * RESULT: #[id number] - EDEL SCREENING BILATERAL DIGITAL SCREENING MAMMOGRAM WITH CAD: 07/12/2019 HISTORY: Screening Mammogram - patient reports NO breast sym ptoms /priors available for comparison. RESULT: TECHNIQUE: The study was acquired using full field digital t echnology and interpreted from soft copy. Current study was also evaluated with a Computer Aided Detec tion (CAD). Comparison is made to exams dated: 06/21/2018 mammogram, 06/15/2017 mammogram - [facility], and 07/21/2016 [facility] mogram. There are scattered fibroglandular elements in both breasts. No significant masses, calcifications, or other findings are seen in either breast. There has been no significant interval change. IMPRESSION: NEGATIVE There is no mammographic evidence of malignancy. A 1 year sc reening mammogram is recommended. The exam was reviewed by a staff p nancy. Francisco J Tena M.D. [facility],nmz/mehnaz:07/12/2019 10:26:31 Supervisor [employer] Checkers [employer] Cashiers(s): Mary Verduzco RT(R)(M), [facility] [place] letter sent: Normal over 40 Mammogram BI-RADS: 1 Negative Multiple national specialty organizations have released le st cancer screening guidelines for women at average risk for developin g breast cancer - guidelines that are based on both evidence and opin ion, yet differ on when to start and how often to screen for breast c ancer. With representation from Breast Imaging, Internal Medicine, Women 's Health, Family Medicine, and Medical/Surgical Oncology, the [facility] has carefully reviewed the data and reached the following consen bhupinder: 1) All women should engage in shared decision-making with eir providers to decide when to start and how often to screen; 2) All women should have the opportunity to start screening mammography at age 40; 3) For women ages 45-55, we recommend annual screening mammo grams; 4) For women ages 55 and over, we support both the transitio n from an annual to a biennial interval if this aligns more with patie nt's values and preferences, or continuation with annual screening; 5) All women should discuss with their providers when to sto p screening mammograms. Honey Processor: Mehnaz Transcribe Date/Time: Jul 12 2019 9:21A Dictated by: MEHDI TENA MD This examination was interpreted and the report reviewed and electronically signed by: FRANCISCO J LANDEROS MD on Jul 12 2019 10:26AM EST [id number] cnco on 2019-07-12 CNCO HNO ID: [id number] Normal 07-12-2019 [facility] Author: Mammography Coordinator ([id number]) Service: ? Author Type: Physician Type: Letter Filed: 07/16/2019 11:31 PM Note Text: July 12, 2019 PID: [id number] Bri Jiménez [address] [place] [address] Dear Ms. Jiménez, We are pleased to inform you that the results of your recent breast imaging exam on 07/12/2019 are normal. Early detection of cancer is very important. We also underst and recommendations regarding breast cancer screening are contro versial. Please discuss with your primary care provider which strateg y is best for you and whether a mammogram is right for you. Your imaging studies and report will be kept on file at [facility] as part of your permanent medical record and are available f or your continuing care. Thank you for allowing us to help in meeting your health car e needs. Sincerely, Dr. Landeros Interpreting Radiologist [facility] (Normal over 40) obsolete on 2019-06 OBSOLETE Refill (FAMPWS) Normal 06-29-2019 Saman snowden Benson JIMÉNEZBRI Danny ([id number]) 1950 [facility] Date Time Provider Department ([id number]) 06/29/19 JON VALENZUELA) TOBIAS During your visit today, we recorded the following informati on about you: Serena Chavez Pss 06/29/2019 8:53 AM Signed Patient has been identified by name and date of : Yes Pending Prescriptions Disp Refills AMLODIPINE 10 MG TABLET 90 tablet 1 Sig: Take 1 tablet by mouth once daily. REJI: No RX INSTRUCTIONS: Patient aware RX will be sent to pharmacy. No need to notify patient. Serena Chavez Pss Allergies As of Date: 06/29/2019 Noted Allergy Reaction SEASONAL ALLERGIES 05/11/2016 5 - Intolerance Date Reviewed: 06/22/2019 Reviewed by: Gale Alexander (Isatu) ISATU Holland - Fully Assessed Reason for Visit: Refill Request [94] Visit Diagnosis:Essential hypertension [I10] Order(s):amLODIPine (NORVASC) 10 mg tabletTake 1 tablet by m outh once daily.Disp: 90 tabletRfl: 1 Prescriptions as of 06/29/2019 Sig: AMLODIPINE 10 MG TABLET Take 1 tablet by mouth once d* RANITIDINE 150 MG TABLET Take 1 tablet by mouth twice * SIMVASTATIN 20 MG TABLET Take 1 tablet by mouth daily * FLUOXETINE 40 MG CAPSULE Take 1 capsule by mouth once * METOPROLOL TARTRATE 100 MG TA* Take 0.5 tablets by mouth twi * NAPROXEN 500 MG TABLET Take 1 tablet by mouth twice * CYCLOBENZAPRINE 5 MG TABLET Take 1 tablet by mouth twice * Patient not taking: Reported on 06/22/2019 LISINOPRIL 20 MG TABLET Take one tablet daily. ALENDRONATE 70 MG TABLET Take 1 tablet by mouth once e* METFORMIN ER 500 MG TABLET,EX* Take 1 tablet by mouth twice * HYDROXYZINE HCL 25 MG TABLET Take 1 tablet by mouth every * HYDROXYUREA 500 MG CAPSULE Take 1 capsule by mouth every* ALBUTEROL SULFATE HFA 90 MCG/* Inhale 2 Puffs as instructed * Patient not taking: Reported on 06/22/2019 MECLIZINE 12.5 MG TABLET Take 1 tablet by mouth every * Patient not taking: Reported on 06/22/2019 CALCIUM + D ORAL Take 2 tablets by mouth once * ACETAMINOPHEN 500 MG TABLET Take 1 tablet by mouth every * ASPIRIN 81 MG CHEWABLE TABLET Take 81 mg by mouth once jl* Problem List As Of Date 06/29/2019 Noted Resolved 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 Transient cerebral ischemia [G45.9] INVALID FOR* More... Essential hypertension [I10] INVALID FOR* More... Hypercholesteremia [E78.00] INVALID FOR* Type 2 diabetes mellitus without complication, *INVALID FOR* More... 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 DISPOSITION AND FOLLOW-UP INVALID FOR*01/09/2017 More... Mechanical venous thromboembolism (VTE) prophyl*INVALID FOR* 01/09/2017 More... Pain, postoperative, acute [G89.18] INVALID FOR* More... Morbid obesity with BMI of 50.0-59.9, adult (HC*INVALID FOR* More... Obstructive sleep apnea syndrome [G47.33] INVALID FOR* More... Osteopenia [M85.80] Status post cataract extraction and insertion o*INVALID FOR* History of lung cancer [Z85.118] INVALID FOR* Status post cataract extraction and insertion o*INVALID FOR* Type 2 diabetes mellitus without retinopathy (H*INVALID FOR* Vitreous floaters of both eyes [H43.393] INVALID FOR* Pseudophakia of both eyes [Z96.1] INVALID FOR* BPPV (benign paroxysmal positional vertigo) [H8*INVALID FOR* Neuropathy (HCC) [G62.9] Dermatochalasis of both upper eyelids [H02.831,*INVALID FOR* Prescriptions ordered this encounter Disp Refills Start End AMLODIPINE 10 MG TABLET 90 t* 1 06/30/2019 Route: ORAL Sig: Take 1 tablet by mouth once daily. Medications Discontinued During This Encounter amLODIPine (NORVASC) 10 mg tablet 90 t* 1 12/19/2018 9 Route: ORAL Sig: Take 1 tablet by mouth once daily. Disc: Reason for discontinue is not on file. Encounter Status:Closed by JON VALENZUELA MD on glucose poc on 2016 Glucose mass conc 91 70-99 mg/dL Normal 08-25-2017 [facility] ([id number]) Comment: Performed By: #### [id number] ####CRISTHIAN POC [id number] [place] [id number] glucose poc on 2016 Glucose mass conc 97 70-99 mg/dL Normal 08-10-2017 [facility] ([id number]) Comment: Performed By: #### [id number] ####CRISTHIAN POC [id number] [place] [address] Vital Signs Vital Sign Description Value / Unit Date Location The following section is limited to 5 en tries per type and includes entries from the following time range: 20200521 - 9. Body weight 125.19 kg 05-21-2020 [facility] ([id number]) BP Diastolic 84 mm[Hg] 05-21-2020 [facility] ([id number]) BP Systolic 136 mm[Hg] 05-21-2020 [facility] ([id number]) Pulse (Heart Rate) 66 /min 05-21-2020 [facility] ([id number]) Pulse Oximetry 95 % 05-21-2020 [facility] ([id number]) Respiratory Rate 16 /min 05-21-2020 [facility] ([id number]) Encounters Date Type Reason Provider Location 08-25-2017 - Ambulatory [facility] I[facility] Facility:[facility] 08-25-2017 [facility] Jon Valenzuela 08-10-2017 - Ambulatory [facility] Facility:[facility] 08-10-2017 [facility] Jon Valenzuela 03-09-2017 - Ambulatory Jose Enrique Quispe Facility: [place] 03-09-2017 [facility] 06-23-2020 - Letter encounter Blair Reilly [facility] 06-23-2020 05-03-2018 [facility] ([id number][facility] 06-23-2020 - Patient encounter Triggering of Catrachita (Jose Manuel) [facility] 06-23-2020 procedure digit [place] Comment: Trigger middle finger of lef t hand 05-21-2020 - Patient encounter Triggering of Jon Riley) [facility] 05-21-2020 procedure digit Bianca [place] Comment: Trigger middle finger of lef t hand (Primary Dx); Moderate episode of recurren t major depressive disorder (HCC); Type 2 diabetes mellitus wit hout complication, without long-term current use of insulin (HCC); Essential hypertension; Obstructive sleep apnea synd jas; Morbid obesity with BMI of 5 0.0-59.9, adult (HCC) 06-23-2020 - Telephone encounter Acquired trigger Blair Re[facility] 06-23-2020 finger Comment: Schedule Surgery 06-16-2020 - Telephone Patient encounter Arelis [place]) [facility] 06-16-2020 encounter status Podlogar Erasto Comment: Medication Update; Orders Procedures Procedure Name Date Provider Location Mammography 07-12-2019 - 07-12-2019 [facility] ([id number]) Plan of Treatment Plan Description Date Location DTAP,TDAP,TD (2 - Td) DTAP,TDAP,TD (2 - Td) [facility] ([id number][facility] PNEUMOVAX AGE 65 AND PNEUMOVAX AGE 65 AND 07-13-2021 - [facility] OVER WITH 5YR LOOKBACK OVER WITH 5YR LOOKBACK 07-13-2021 ([id number]) (#1) (#1) DIABETIC FOOT EXAM DIABETIC FOOT EXAM 05-21-2021 - [facility] 05-21-2021 ([id number]) ANNUAL PCP TEAM CHRONIC ANNUAL PCP TEAM CHRONIC 05-21-2021 - [facility] DISEASE VISIT DISEASE VISIT 05-21-2021 ([id number]) URINE ALBUMIN:CREATININE URINE ALBUMIN:CREATININE 05-07-2021 - [facility] RATIO RATIO 05-07-2021 ([id number]) LDL CHOLESTEROL LDL CHOLESTEROL 05-07-2021 - [facility] 05-07-2021 ([id number]) HBA1C HBA1C 11-07-2020 - [facility] 11-07-2020 ([id number]) MAMMOGRAM MAMMOGRAM 07-12-2020 - [facility] 07-12-2020 ([id number]) DILATED RETINAL EXAM DILATED RETINAL EXAM 01-04-2020 - [facility] 01-04-2020 ([id number]) ADVANCE DIRECTIVE ADVANCE DIRECTIVE 2016 - [facility] inic DISCUSSION DISCUSSION 2016 ([id number]) FECAL OCCULT BLOOD FECAL OCCULT BLOOD 2001 - [facility] 2001 ([id number]) SHINGRIX VACCINE (1 of SHINGRIX VACCINE (1 of 2001 [facility] 2) 2) 2001 (09087) BP CONTROLLED (<130/80) BP CONTROLLED (<130/80) 1969 - [facility] 1969 ([id number]) PRE-PROCEDURE & PRE-PROCEDURE & 06-23-2021 [facility] PRE-OPERATIVE COVID PRE-OPERATIVE COVID ([id number]) Microbiology Routine Pre-op testing 1 Occurrences starting 06/23/2020 until 06/23/2021 Comment: 1 Occurrences starting 06/23 until 06/23/2021 EDEL SCREENING EDEL SCREENING Radiology Routine 07-16-2021 [facility] ([id number]) Visit for screening mammogram 1 Occurrences starting 06/16/2020 until 07/16/2021 Comment: 1 Occurrences starting 06/16 until 07/16/2021 no information [facility] (15290) no information [facility] (53604) Immunizations Vaccine Notes Status Date Location Influenza Seasonal influenza, high dose (completed) 05-14-2020 - [facility] - High Dose - Age seasonal, 05-14-2020 ([id number]) 65+ preservative-free Influenza Seasonal influenza, high dose (completed) 06-22-2019 - [facility] - High Dose - Age seasonal, 06-22-2019 ([id number]) 65+ preservative-free Influenza Seasonal influenza, high dose (completed) 06-09-2018 - [facility] - High Dose - Age seasonal, 06-09-2018 ([id number]) 65+ preservative-free Influenza Seasonal influenza, high dose (completed) 06-17-2017 - [facility] - High Dose - Age seasonal, 06-17-2017 ([id number]) 65+ preservative-free Pneumococcal-13 Vac pneumococcal conjugate (completed) 09-09-2016 - [facility] Conjugate vaccine, 13 valent 09-09-2016 ([id number]) Pneumovax pneumococcal (completed) 07-13-2016 - [facility] polysaccharide vaccine, 07-13-2016 ([id number]) 23 valent Tdap (Age 7+) tetanus toxoid, reduced (completed) 04-15-2017 - [facility] diphtheria toxoid, and 04-15-2017 (4419 [id number]) acellular pertussis vaccine, adsorbed Payers Payer Name Policy Number [facility] ([id number]) MEDICARE [id number] [facility] (44 195) MMO [id number] [facility] (44 195) The following information is from the original human readable contentNo Payer Records FoundNo Payer Records FoundNo Payer Records Found Social History Type Social History Date Location Description Tobacco smoking status Former smoker 05-21-2020 - [facility] NHIS 06-23-2020 ([id number]) History of tobacco use Current smoker 08-25-1972 [facility] ([id number]) History of tobacco use Cigarette Smoker 08-25-1972 [facility] ([id number]) Cigarettes smoked 05-21-2020 - [facility] current (pack per day) 06-23-2020 ([id number]) - Reported Tobacco use and Never used 05-21-2020 [facility] exposure 06-23-2020 (69732) Alcohol intake Current drinker of 05-21-2020 - [facility] (finding) 06-23-2020 ([id number]) Alcohol Comment Rare mixed drink 05-11-2016 - [facility] 05-11-2016 ([id number]) Sex Assigned At Not on file [facility] ([id number]) Exposure to SARS-CoV-2 Not sure [facility] (event) ([id number]) The following information is from the original human readable contentNo Social History Records FoundNo Social History Records FoundNo Social History Records FoundNo Social History Records FoundNo Social History Records Found Summary Purpose Family History No Family History Records FoundNo Family History Records FoundNo Family History Records Found Advance Directives No Advanced Directives Records Found Documents on File Type Date Recorded Patient User Support Analyst Supervisor Explanati on Advance Directive(s) 01/06/2017 1:33 PM Documents on File Type Date Recorded Patient User Support Analyst Supervisor Explanati on Advance Directive(s) 01/06/2017 1:33 PM Reason for Referral Status Reason Specialty Diagnoses / Referred By Referred To Procedures Contact Contact Authorized PCP Requested Orthopedics Diagnoses Trigger middle finger of left hand [place], Referral Procedures CONSULT TO ORTHOPAEDICS NEW PATIENT VISIT LEVEL 5 Jon Riley) [address] [place], [place] [address] History of Past Illness Problem Noted Date Resolved Date Type 2 diabetes mellitus without retinopathy 01/03/2018 01/21/2020 DISPOSITION AND FOLLOW-UP 01/07/2017 01/09/2017 Overview: History: and lives in [place], [place]. Admitted 01/07/17 for VATs lung wedge Assessment: discharge to home today give n we can get her home O2 set up. Plan: - Discuss needs with patient and collabo rate with case management - Will continue to [facility]. - d/c home today with home oxygen, follo w up in 7-10 days with chest xray. Check oxygen requirements at follow up - keep hematology follow up that is sche duled in February. . Mechanical venous thromboembolism (VTE) prophylaxis in place 01/07/2017 01/09/2017 Overview: History: No history of DVT in the past. Now s/p VATS lung wedge 01/07/17 Assessment: High risk for DVT due to rec ent surgery and obesity. No leg pain, swelling or warmth on Lovenox 40mg daily subcutaneously and DARBY hose. Plan: - Continue current regimen while in hosp ital - Encourage continued ambulation (at [address] TID) . Pain, postoperative, acute 01/07/2017 01/21/2020 Overview: History: Status post: VATS lung wedge 01/07/17. Assessment: Current regimen: oxycodone 5 -10 mg every 4 hours prn, tylenol 650 mg q6H prn. And ibuprofen 400 mg every 6 hours as needed Plan: - continue oxycodone, tylenol and ibupro fen. - Continue to re-assess pain control. - bowel regimen: dulc suppository, milk of mag prn, and daily Miralax . Encounter for preoperative anesthesiology assessment for 12/07/2017 thoracic surgery Astigmatism of eye 10/05/2016 10/11/2016 Combined forms of age-related cataract, right eye 10/05/2016 01/21/2020 Problem Noted Date Resolved Date Type 2 diabetes mellitus without retinopathy 01/03/2018 01/21/2020 DISPOSITION AND FOLLOW-UP 01/07/2017 01/09/2017 Overview: History: and lives in [place], [place]. Admitted 01/07/17 for VATs lung wedge Assessment: discharge to home today give n we can get her home O2 set up. Plan: - Discuss needs with patient and collabo rate with case management - Will continue to evaluate during [facility]pi [facility] admission. - d/c home today with home oxygen, follo w up in 7-10 days with chest xray. Check oxygen requirements at follow up - keep hematology follow up that is sche duled in February. . Mechanical venous thromboembolism (VTE) prophylaxis in place 01/07/2017 01/09/2017 Overview: History: No history of DVT in the past. Now s/p VATS lung wedge 01/07/17 Assessment: High risk for DVT due to rec ent surgery and obesity. No leg pain, swelling or warmth on Lovenox 40mg daily subcutaneously and DARBY hose. Plan: - Continue current regimen while in hosp ital - Encourage continued ambulation (at [address] TID) . Pain, postoperative, acute 01/07/2017 01/21/2020 Overview: History: Status post: VATS lung wedge 01/07/17. Assessment: Current regimen: oxycodone 5 -10 mg every 4 hours prn, tylenol 650 mg q6H prn. And ibuprofen 400 mg every 6 hours as needed Plan: - continue oxycodone, tylenol and ibupro fen. - Continue to re-assess pain control. - bowel regimen: dulc suppository, milk of mag prn, and daily Miralax . Encounter for preoperative anesthesiology assessment for 12/07/2017 thoracic surgery Astigmatism of eye 10/05/2016 10/11/2016 Combined forms of age-related cataract, right eye 10/05/2016 01/21/2020 Problem Noted Date Resolved Date Type 2 diabetes mellitus without retinopathy 01/03/2018 01/21/2020 DISPOSITION AND FOLLOW-UP 01/07/2017 01/09/2017 Overview: History: and lives in [place], [place]. Admitted 01/07/17 for VATs lung wedge Assessment: discharge to home today give n we can get her home O2 set up. Plan: - Discuss needs with patient and collabo rate with case management - Will continue to evaluate during [facility] admission. - d/c home today with home oxygen, follo w up in 7-10 days with chest xray. Check oxygen requirements at follow up - keep hematology follow up that is sche duled in February. . Mechanical venous thromboembolism (VTE) prophylaxis in place 01/07/2017 01/09/2017 Overview: History: No history of DVT in the past. Now s/p VATS lung wedge 01/07/17 Assessment: High risk for DVT due to rec ent surgery and obesity. No leg pain, swelling or warmth on Lovenox 40mg daily subcutaneously and DARBY hose. Plan: - Continue current regimen while in hosp ital - Encourage continued ambulation (at [address] TID) . Pain, postoperative, acute 01/07/2017 01/21/2020 Overview: History: Status post: VATS lung wedge 01/07/17. Assessment: Current regimen: oxycodone 5 -10 mg every 4 hours prn, tylenol 650 mg q6H prn. And ibuprofen 400 mg every 6 hours as needed Plan: - continue oxycodone, tylenol and ibupro fen. - Continue to re-assess pain control. - bowel regimen: dulc suppository, milk of mag prn, and daily Miralax . Encounter for preoperative anesthesiology assessment for 12/07/2017 thoracic surgery Astigmatism of eye 10/05/2016 10/11/2016 Combined forms of age-related cataract, right eye 10/05/2016 01/21/2020 Problem Noted Date Resolved Date Type 2 diabetes mellitus without retinopathy 01/03/2018 01/21/2020 DISPOSITION AND FOLLOW-UP 01/07/2017 01/09/2017 Overview: History: and lives in [place], [place]. Admitted 01/07/17 for VATs lung wedge Assessment: discharge to home today give n we can get her home O2 set up. Plan: - Discuss needs with patient and collabo rate with case management - Will continue to [facility]. - d/c home today with home oxygen, follo w up in 7-10 days with chest xray. Check oxygen requirements at follow up - keep hematology follow up that is sche duled in February. . Mechanical venous thromboembolism (VTE) prophylaxis in place 01/07/2017 01/09/2017 Overview: History: No history of DVT in the past. Now s/p VATS lung wedge 01/07/17 Assessment: High risk for DVT due to rec ent surgery and obesity. No leg pain, swelling or warmth on Lovenox 40mg daily subcutaneously and DARBY hose. Plan: - Continue current regimen while in hosp ital - Encourage continued ambulation (at [address] TID) . Pain, postoperative, acute 01/07/2017 01/21/2020 Overview: History: Status post: VATS lung wedge 01/07/17. Assessment: Current regimen: oxycodone 5 -10 mg every 4 hours prn, tylenol 650 mg q6H prn. And ibuprofen 400 mg every 6 hours as needed Plan: - continue oxycodone, tylenol and ibupro fen. - Continue to re-assess pain control. - bowel regimen: dulc suppository, milk of mag prn, and daily Miralax . Encounter for preoperative anesthesiology assessment for 12/07/2017 thoracic surgery Astigmatism of eye 10/05/2016 10/11/2016 Combined forms of age-related cataract, right eye 10/05/2016 01/21/2020 History of Present Illness Jon Valenzuela) - 05/21/2020 4:40 PM EDT Chief Complaint Patient presents with: F/U 3 months HPI Bri Jiménez is a 69 year old female who presents here today for 3 month follow up. C/o numbness in left middle finger with occasional episodes where her finger gets stuck in flexion. Has to massage and then slowly work it back out to straighten it. Has some numbness associated with it. Denies weakness or recent injury. DIABETES MELLITUS: Ms. Jiménez was last seen 3 months ago. Since our last visit she denies excessive thirst or increased frequency of urination, numbness, tingling or pain in extremities, new or unusual visual symptoms and low sugar/hypoglycemic reactions. Follows a diabetic diet generally not very much. She is compliant with medication(s) and is tolerating med(s) without any side effects. She reports checking her glucose on a once a day schedule with sugars in the fasting 120-155 range. Patient's last HgA1C was Hemoglobin A1C (%) Date Value 05/07/2020 6.6 11/29/2018 6.2 ) Last Ophthalmology exam was within the past 3 months-Dr. Anderson's office. No DM changes Last Podiatry exam was more than 12 months ago Depression symptoms uncontrolled with stressors from COVID, being unable to see family, recent deaths in the family. C/o decreased energy/interest, sleep disturbance, feeling down, decreased appetite, occasional thoughts that she doesn't want to be around anymore. Denies SI/HI. Taking Prozac as prescribed without side effects. JAJA: using Bipap nightly and is working well. Waking up feeling well rested. Denies headaches. 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 Past medical history, appointments, medications, allergies reviewed. Previous Medical History PAST MEDICAL HISTORY Diagnosis Date ? 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 Leiva-hematology/oncology. ? Cataracts, bilateral ? Depression ? Diabetes (HCC) Type II ? Environmental allergies ? Fibromyalgia ? Hypertension ? Morbid obesity (HCC) 01/06/2017 BMI 50.3 ? Neuropathy ? JAJA (obstructive sleep apnea) Bipap ? Osteopenia ? Thrombocytosis (HCC) Seeing Dr. Leiva; on hydroxyurea and blood thinners ? TIA (transient ischemic attack) 04/26/2016 TIA ? Uterine cancer (HCC) 1985 hysterectomy Previous Surgical History PAST SURGICAL HISTORY Procedure Laterality Date ? CATARACT EXTRACTION W/ INTRAOCULAR LENS IMPLANT HX Left 08/10/2017 ? CATARACT EXTRACTION W/ INTRAOCULAR LENS IMPLANT HX Right 08/25/2017 ? PAST SURGICAL HISTORY OF Tonsillectomy ? PAST SURGICAL HISTORY OF Left knee surgery ? PAST SURGICAL HISTORY OF 05/17/1975 ? PAST SURGICAL HISTORY OF Ganglion cyst removed from left hand ? PAST SURGICAL HISTORY OF Cyst removed from right wrist ? PAST SURGICAL HISTORY OF 1983 Hysterectomy ? PAST SURGICAL HISTORY OF Oily deposits removed from scalp ? PAST SURGICAL HISTORY OF laser surgery for abnormal cells after hysterectomy ? THORACOSCOPY W/DX WEDGE RESEXN ANATO LUNG RESEXN Left 01/07/2017 VATS left lower lung wedge resection of carcinoid tumor Family History FAMILY HISTORY Problem Relation Age of Onset ? Diabetes Mother ? Cataract Mother ? other (HTN) Mother ? Diabetes Sister ? other (CHF) Sister ? Cancer Sister d/t brain cancer ? other (Borderline Diabetes) Sister ? other (Tuberculosis) Brother d/t TB @ 10 months Patient Allergies ALLERGIES Allergen Reactions ? Lisinopril Cough ? Seasonal Allergies Intolerance Current Medications Current Outpatient Medications on File Prior to Visit Medication Sig ? losartan (COZAAR) 25 mg tablet Take 1 tablet by mouth once daily. ? hydrOXYzine HCl (ATARAX) 25 mg tablet Take 1 tablet by mouth every 8 hours as needed. ? metFORMIN ER (GLUCOPHAGE XR) 500 mg 24 hr tablet Take 2 tablets by mouth twice daily before meals. ? amLODIPine (NORVASC) 10 mg tablet Take 1 tablet by mouth once daily. ? simvastatin (ZOCOR) 20 mg tablet Take 1 tablet by mouth daily at bedtime. ? albuterol (PROVENTIL) 2.5 mg /3 mL (0.083 %) nebulizer solution Use 3 mL via nebulizer every 6 hours as needed. OVER 5-15 MINUTES. FOR WHEEZING AND SHORTNESS OF BREATH. ? FLUoxetine HCl (PROZAC) 40 mg capsule Take 1 capsule by mouth once daily. ? alendronate (FOSAMAX) 70 mg tablet Take 1 tablet by mouth once each week. ? CALCIUM CARBONATE/VITAMIN D3 (CALCIUM + D ORAL) Take 2 tablets by mouth once daily. ? acetaminophen (TYLENOL EXTRA STRENGTH) 500 mg tablet Take 1 tablet by mouth every 8 hours as needed for Pain. ? aspirin 81 mg chewable tablet Take 81 mg by mouth once daily. ? carvedilol (COREG) 12.5 mg tablet Take 12.5 mg by mouth twice daily. No current facility-administered medications on file prior to visit. Social History Social History Tobacco Use ? Smoking status: Former Smoker Packs/day: 0.75 Years: 1.00 Pack years: 0.75 Types: Cigarettes Quit date: 08/25/1972 Years since quittin.7 ? Smokeless tobacco: Never Used Substance Use Topics ? Alcohol use: Yes Comment: Rare mixed drink ? Drug use: No Review of Symptoms REVIEW OF SYSTEMS GENERAL: No weight loss, malaise or fevers RESPIRATORY: Negative for cough, hemoptysis, wheezing, COPD, dyspnea or shortness of breath CARDIOVASCULAR: Negative for chest pain, leg swelling, hypertension, CHF or palpitations GI: No nausea, vomiting, or diarrhea SKIN: Negative for lesions, rash, and itching EXAM: BP 136/84 Pulse 66 Resp 16 Wt 125.2 kg (276 lb) SpO2 95% BMI 51.31 kg/m? General Appearance: Well appearing, alert, in no acute distress, well-hydrated, well nourished.. Skin: Skin color, texture, turgor normal, no suspicious rashes or lesions. Lungs: Lungs clear to auscultation. No wheezing, rhonchi, rales.. Heart: RRR without murmur, gallop, or rubs. No ectopy. Abdomen: Normal abdominal exam, Abdomen soft, non-tender. Bowel sounds normal. No masses, organomegaly. Extremities: No deformities, edema, skin discoloration, clubbing or cyanosis. Good capillary refill. Musculoskeletal: Normal ROM of fingers bilaterally. Left middle finger not sticking during exam. 5/5grip strength bilaterally. Feet: Shoes and socks removed, No deformities, ulcers, calluses, normal distal pulses and sensitive to 10 gm monofilament Health Maintenance List BP CONTROLLED (<130/80) due on 1969 FECAL OCCULT BLOOD due on 2001 SHINGRIX VACCINE(1 of 2) due on 2001 ADVANCE DIRECTIVE DISCUSSION due on 2016 DIABETIC FOOT EXAM due on 12/08/2019 DILATED RETINAL EXAM due on 01/04/2020 MAMMOGRAM due on 07/12/2020 HBA1C due on 11/07/2020 ANNUAL PCP TEAM CHRONIC DISEASE VISIT due on 01/22/2021 URINE ALBUMIN:CREATININE RATIO due on 05/07/2021 LDL CHOLESTEROL due on 05/07/2021 PNEUMOVAX AGE 65 AND OVER WITH 5YR LOOKBACK(1) due on 07/13/2021 DTAP,TDAP,TD(2 - Td) due on 04/15/2027 BONE DENSITY Completed INFLUENZA Completed HEPATITIS C SCREENING Completed MENINGOCOCCAL CONJUGATE Completed Data reviewed Component Latest Ref Rng & Units 11/29/2018 08/17/2019 11/16/2019 02/15/2020 05/07/2020 WBC 3.70 - 11.00 k/uL 9.62 9.28 RBC 3.90 - 5.20 m/uL 4.36 4.72 Hemoglobin 11.5 - 15.5 g/dL 12.1 12.6 Hematocrit 36.0 - 46.0 % 37.8 39.7 MCV 80.0 - 100.0 fL 86.7 84.1 MCH 26.0 - 34.0 pG 27.8 26.7 MCHC 30.5 - 36.0 g/dL 32.0 31.7 RDW-CV 11.5 - 15.0 % 13.6 15.0 Platelet Count 150 - 400 k/uL 336 344 MPV 9.0 - 12.7 fL 9.9 10.0 Neut% % 58.5 64.8 Abs Neut (ANC) 1.45 - 7.50 k/uL 5.62 6.01 Lymph% % 26.4 22.4 Abs Lymph 1.00 - 4.00 k/uL 2.54 2.08 [place]% % 11.4 9.1 Abs [place] <0.87 k/uL 1.10 (H) 0.84 Eosin% % 3.3 3.3 Abs Eosin <0.46 k/uL 0.32 0.31 Baso% % 0.4 0.4 Abs Baso <0.11 k/uL 0.04 0.04 Nucleated Reds 0 /100 WBC 0.0 0.0 Absolute nRBC <0.01 k/uL <0.01 <0.01 Diff Type Auto Diff Auto Diff Protein, Total 6.3 - 8.0 g/dL 7.1 7.1 7.4 Albumin 3.9 - 4.9 g/dL 4.0 4.1 4.2 Calcium 8.5 - 10.2 mg/dL 9.0 9.7 9.7 Bilirubin, Total 0.2 - 1.3 mg/dL 0.5 0.4 0.5 Alkaline Phosphatase 34 - 123 U/L 64 64 65 AST 13 - 35 U/L 17 22 27 Glucose 74 - 99 mg/dL 198 (H) 154 (H) 116 (H) BUN 7 - 21 mg/dL 12 21 12 Creatinine 0.58 - 0.96 mg/dL 0.73 0.88 0.81 Sodium 136 - 144 mmol/L 138 139 140 Potassium 3.7 - 5.1 mmol/L 4.0 3.9 4.4 Chloride 97 - 105 mmol/L 103 103 102 CO2 22 - 30 mmol/L 24 26 24 Anion Gap 9 - 18 mmol/L 11 10 14 ALT 7 - 38 U/L 12 23 21 eGFR- >60 >60 >60 eGFR-All Other Races . >60 >60 >60 WBC, [place] 3.70 - 11.00 k/uL 8.33 RBC, [place] 3.90 - 5.20 m/uL 4.05 Hemoglobin, [place] 11.5 - 15.5 g/dL 12.2 Hematocrit, [place] 36.0 - 46.0 % 37.0 MCV, [place] 80.0 - 100.0 fL 91.4 MCH, [place] 26.0 - 34.0 pg 30.1 MCHC, [place] 30.5 - 36.0 g/dL 33.0 RDW, [place] 11.5 - 15.0 % 14.9 Platelet Cnt, [place] 150 - 400 k/uL 326 MPV, [place] 9.0 - 12.7 fL 9.6 Absol Gran Count 1.45 - 7.50 k/uL 5.44 Total Cholesterol, Nonfasting <200 mg/dL 159 Triglycerides, Nonfasting <150 mg/dL 121 HDL Cholesterol, Nonfasting >39 mg/dL 63 LDL Cholesterol, Nonfasting <100 mg/dL 72 Non HDL Cholesterol, Nonfasting <130 mg/dL 96 VLDL Cholesterol, Nonfasting <30 mg/dL 24 Total Chol/HDL Ratio, Nonfasting <5.10 mg/dL 2.52 LDL/HDL Ratio, Nonfasting <2.54 mg/dL 1.14 Creatinine, Ur Random (UCRR) 20 - 300 mg/dL 162.8 Albumin, Urine Random mg/L <12.0 Albumin/Creat Ratio <30 mg/g Not calculated Hemoglobin A1C 4.3 - 5.6 % 6.2 (H) 6.6 (H) Estimated Average Glucose mg/dL 131 143 LD 135 - 214 U/L 154 154 Ferritin 14.7 - 205.1 ng/mL 50.5 ASSESSMENT/PLAN: 1. Trigger middle finger of left hand - ICD9: 727.03, ICD10: M65.332 (primary diagnosis) Discussed use of ice and gentle stretching. Will refer to ortho for evaluation for injection vs surgical intervention. - CONSULT TO ORTHOPAEDICS 2. Moderate episode of recurrent major depressive disorder (HCC) - ICD9: 296.32, ICD10: F33.1 Uncontrolled. Increase prozac to 60 mg daily. Refusing counseling. Call in 4 weeks if symptoms not improving. F/u in 3 months. - FLUOXETINE 20 MG CAPSULE 3. Type 2 diabetes mellitus without complication, without long-term current use of insulin (HCC) - ICD9: 250.00, ICD10: E11.9 Controlled. - Continue current medications - Blood glucose monitoring on a once a day schedule - Encouraged regular aerobic exercise and weight loss - Daily Asprin therapy recommended - Follow up in 3 months, sooner should any other issues arise. - Discussed diabetic education issues of senior care diabetic complications, hypoglycemic symptoms, hyperglycemic symptoms, diet, medications- side effects and need for compliance and importance of exercise with patient. - METFORMIN ER 500 MG TABLET,EXTENDED RELEASE 24 HR - SIMVASTATIN 20 MG TABLET 4. Essential hypertension - ICD9: 401.9, ICD10: I10 - good control - Continue current medication(s) - Encouraged dietary sodium restriction/DASH diet - Recommended regular aerobic exercise. - Reviewed risks of HTN and principles of treatment - Goal of BP <140/90 - AMLODIPINE 10 MG TABLET 5. Obstructive sleep apnea syndrome - ICD9: 327.23, ICD10: G47.33 Controlled on Bipap 6. Morbid obesity with BMI of 50.0-59.9, adult (HCC) - ICD9: 278.01, V85.43, ICD10: E66.01, Z68.43 Stable - Behavioral intervention I spent 35 minutes in the visit, with more than 50% of the total [id number] time of the visit in counseling / coordination of care. Jon Valenzuela MD documented in this encounterCatrachita Posada) - 06/23/2020 9:29 AM EDT Catrachita Posada PA-C Department of Orthopaedics Orthopaedics [address] [place] [id number] Dept: [phone] Dept June 23, 2020 CHIEF COMPLAINT: New and Trigger Finger of the Left Hand Ms. Bri Jiménez is a 69 year old female she presents with catching and locking in her left middle digit for about the past 2 months. Patient states that the digit become locked and it will take about 20 minutes of massage to get it released. Pain today is a 10 out of 10 aching in the finger. The patient is [id number], she states that she broke her left middle knuckle on a filing cabinet after remote injury. She is a diabetic, recent A1c was 6.6 on May 09, 2020. ASSESSMENT: M65.332 Trigger middle finger of left hand PLAN: We discussed surgical intervention, the patients questions were addressed. The risks, benefits, alternatives and were discussed, patinet understands and wishes to pursue surgical intervention. Ms. Bri Jiménez was advised as to contrast therapies and/or to take analgesics/anti-inflammatories as needed and all contraindications were reviewed. OBJECTIVE: Ms. Bri Jiménez is a pleasant 69 year old in no apparent distress. Gen:There were no vitals taken for this visit. nl development, obese, no deformities ENT: Normocephalic, normal hearing, moist mucosa CV: Pulses:Radial= 2+ and symmetric, capillary refill < 2 secs, no peripheral edema/varicosities Skin: no rash, bruising or lesions. Good turgor. Psych: cooperative and appropriate, alert and oriented x 3, good mood and affect. Musculoskeletal: Left middle digit with palpable clicking at the A1 edward site, there is a palpable nodule at the [id number] site. Patient has difficulty with full flexion of the digit. Sensation is intact to the digit. Imaging: Deferred today. Supporting Subjective Information Below: Past Surgical History: PAST SURGICAL HISTORY Procedure Laterality Date ? CATARACT EXTRACTION W/ INTRAOCULAR LENS IMPLANT HX Left 08/10/2017 ? CATARACT EXTRACTION W/ INTRAOCULAR LENS IMPLANT HX Right 08/25/2017 ? PAST SURGICAL HISTORY OF Tonsillectomy ? PAST SURGICAL HISTORY OF Left knee surgery ? PAST SURGICAL HISTORY OF 05/17/1975 ? PAST SURGICAL HISTORY OF Ganglion cyst removed from left hand ? PAST SURGICAL HISTORY OF Cyst removed from right wrist ? PAST SURGICAL HISTORY OF 1983 Hysterectomy ? PAST SURGICAL HISTORY OF Oily deposits removed from scalp ? PAST SURGICAL HISTORY OF laser surgery for abnormal cells after hysterectomy ? THORACOSCOPY W/DX WEDGE RESEXN ANATO LUNG RESEXN Left 01/07/2017 VATS left lower lung wedge resection of carcinoid tumor Medications: Current Outpatient Medications Medication Sig ? hydrOXYzine HCl (ATARAX) 25 mg tablet Take 1 tablet by mouth every 8 hours as needed. ? metFORMIN ER (GLUCOPHAGE XR) 500 mg 24 hr tablet Take 2 tablets by mouth twice daily before meals. ? amLODIPine (NORVASC) 10 mg tablet Take 1 tablet by mouth once daily. ? simvastatin (ZOCOR) 20 mg tablet Take 1 tablet by mouth daily at bedtime. ? FLUoxetine HCl (PROZAC) 20 mg capsule Take 3 capsules by mouth once daily. ? alendronate (FOSAMAX) 70 mg tablet Take 1 tablet by mouth one time a week. ? losartan (COZAAR) 25 mg tablet Take 1 tablet by mouth once daily. ? carvedilol (COREG) 12.5 mg tablet Take 12.5 mg by mouth twice daily. ? CALCIUM CARBONATE/VITAMIN D3 (CALCIUM + D ORAL) Take 2 tablets by mouth once daily. ? aspirin 81 mg chewable tablet Take 81 mg by mouth once daily. ? albuterol (PROVENTIL) 2.5 mg /3 mL (0.083 %) nebulizer solution Use 3 mL via nebulizer every 6 hours as needed. OVER 5-15 MINUTES. FOR WHEEZING AND SHORTNESS OF BREATH. ? acetaminophen (TYLENOL EXTRA STRENGTH) 500 mg tablet Take 1 tablet by mouth every 8 hours as needed for Pain. No current facility-administered medications for this visit. Allergies: Lisinopril and Seasonal Allergies ROS: General (negative for fatigue, malaise, weight loss/gain) HEENT (negative for headache, earache, recent vision changes, sinus pain, sore throat) Respiratory (no recent shortness of breath, hemoptysis) CV (negative for chest tightness, palpitations) Musculoskeletal (see HPI) Psych (no depression, anxiety) This note was partially generated using [employer] voice recognition system, and there may be some incorrect words, spellings, and punctuation that were not noted in checking the note before saving. JOSE MANUEL Brizuela-C Adrianne Vela Ma - 06/23/2020 8:51 AM EDT AMB ROOMING INTAKE FLOWSHEET DATA Risk Screening Do you have concerns about personal safety or safety in the home?: No Pain Pain Level: 10 Pain Location: Hand-Left Description: Other: See comment, Numbness(locking) Duration Amount of Time: 2 Duration Units: Months Frequency: Intermittent Intervention: Medication Patient here today with complaints of left middle trigger finger. States the middle finger locks down and will take up to 20 minutes to get it to release. She is right hand dominant. documented in this encounter Assessments Diagnosis Trigger middle finger of left hand - Annette dhaval Trigger finger (acquired) Moderate episode of recurrent major depr essive disorder (HCC) Type 2 diabetes mellitus without complic ation, without long-term current use of insulin (HCC) Essential hypertension Unspecified essential hypertension Obstructive sleep apnea syndrome Obstructive sleep apnea (adult) (pediatr ic) Morbid obesity with BMI of 50.0-59.9, ad ult (HCC) Morbid obesity Diagnosis Visit for screening mammogram - Primary Other screening mammogram Diagnosis Trigger middle finger of left hand Trigger finger (acquired) Acquired trigger finger Trigger finger (acquired) Diagnosis Acquired trigger finger - Primary Trigger finger (acquired) Pre-op testing Preoperative examination, unspecified Acquired trigger finger Trigger finger (acquired) Additional Source Comments FOR RECORDS PERTAINING TO PATIENTS WHO ARE OR HAVE BEEN ENROLLED IN A CHEMICAL DEPENDENCY/SUBSTANCE ABUSE PROGRAM, SOME INFORMATION MAY BE OMITTED. This clinical summary was aggregated from multiple sources. Caution should be exercised in using it in the provision of clinical care. This summary normalizes information from multiple sources, and as a consequence, information in this document may materially changethe coding, format and clinical context of patient data. In addition, data may be omittedin some cases. CLINICAL DECISIONS SHOULD BE BASED ON THE PRIMARY CLINICAL RECORDS. [employer] [facility] provides no warranty or guarantee of the accuracy or completeness of information in this document. UNRECOGNIZED CONTENT PROVIDED BELOW FOR UNRECOGNIZED SECTION INFORMATION SOURCE DATE CREATED AUTHOR AUTHOR'S ORGANIZATIO N 03/07/2018 [facility] DATE CREATED AUTHOR AUTHOR'S ORGANIZATIO N 05/04/2018 [facility] DATE CREATED AUTHOR AUTHOR'S ORGANIZATIO N 06/24/2020 [facility] UNRECOGNIZED CONTENT PROVIDED BELOW FOR UNRECOGNIZED SECTION Source Comments In the event this information is protected by the Federal Confidentiality of Alcohol and Drug Abuse Patient Records regulations: The Federal rules restrict any use of the information to criminally investigate or prosecute any alcohol or drug abuse patient.[facility] the event this information is protected by the Federal Confidentiality of Alcohol and Drug Abuse Patient Records regulations: The Federal rules restrict any use of the information to criminally investigate or prosecute any alcohol or drug abuse patient.[facility] Hospital[facility] the event this information is protected by the Federal Confidentiality of Alcohol and Drug Abuse Patient Records regulations: The Federal rules restrict any use of the information to criminally investigate or prosecute any alcohol or drug abuse patient.[facility] Hospital[facility] the event this information is protected by the Federal Confidentiality of Alcohol and Drug Abuse Patient Records regulations: The Federal rules restrict any use of the information to criminally investigate or prosecute any alcohol or drug abuse patient.[facility] Hospital[facility] the event this information is protected by the Federal Confidentiality of Alcohol and Drug Abuse Patient Records regulations: The Federal rules restrict any use of the information to criminally investigate or prosecute any alcohol or drug abuse patient.[facility] UNRECOGNIZED CONTENT PROVIDED BELOW FOR UNRECOGNIZED SECTION Reason for Visit Reason Comments F/U 3 months Reason Comments Medication Update Orders Reason Comments New Trigger Finger Status Reason Specialty Diagnoses / Referred By Referred To Procedures Contact Contact Closed PCP Requested Orthopedics Diagnoses Trigger middle finger of left hand [place], Referral Procedures CONSULT TO ORTHOPAEDICS NEW PATIENT VISIT LEVEL 5 Jon Riley) [address] [id number] 01 Reason Comments Schedule Surgery UNRECOGNIZED CONTENT PROVIDED BELOW FOR UNRECOGNIZED SECTION Miscellaneous Notes Telephone Encounter - Ally Stark Ma, MA - 06/16/2020 1:13 PM EDTPatient would rather not add a medication at this time. Please assist patient to get mammogram scheduled. Ally Stark MA Telephone Encounter - Arelis Andrade) - 06/16/2020 12:14 PM EDTPatient at highest dose of Prozac. Would she be interested in adding on another medication for depression? Order form mammogram placed, please assist in scheduling. ThanksArelis APRN.[place] elephone Encounter - Kelsy Mc LPN - 06/16/2020 10:26 AM EDTPt reports on 05/21 she had an appt with pcp and Prozac was increased from 40 mg to 60 mg. Pt was to call with an update. Pt reports she has not seen any change and she feels the same. Pt reports she doesn't feel suicidal or anything like that but she doesn't feel any different. Also pt is asking for order for mammogram screening. Call pt when this has been ordered. Kelsy Mc LPN documented in this encounterTelephone Encounter - Adrianne Cedeño Ma - 06/23/2020 1:48 PM EDTSurgery scheduled as requested. elephone Encounter - Awa Connor - 06/23/2020 10:18 AM EDTNoted in Valenzuela. elephone Encounter - Catrachita Posaad) - 06/23/2020 9:49 AM EDTCOVID testing ordered. elephone Encounter - Adrianne Cedeño Ma - 06/23/2020 9:24 AM EDTSurgical request completed for left middle trigger finger release on 07/04/2020. Post op appointments have been scheduled and mailed to patient. Please file pre op COVID order. documented in this encounter
== END ==
PROVIDERS: PCP Family Medicine; Visit Provider Nurse Practitioner Acute Care
DX: R06.02 Shortness of breath (principal)
CPT/HCPCS: 36415; 71046; 80048; 83880

== ENCOUNTER 2020-12-12 11:14 | Inpatient (IN) | payer MEDICARE, OTHER, SELFPAY ==
[2020-05-14 08:53] VITALS: BMI 50.9
[2020-12-12] VITALS (11 sets, daily range): BP systolic 124–168; BP diastolic 49–70; PULSE 56–80; RESP 12–26; TEMP 36.9–37.2; O2SAT 77–97; BMI 49.7; BMI 49.2
--- NOTE | 2020-12-12 11:36 | EKG12_ITS ---
Test Reason : Blood Pressure : / mmHG Vent. Rate : 071 BPM Atrial Rate : 071 BPM P-R Int : 216 ms QRS Dur : 102 ms QT Int : 394 ms P-R-T Axes : 036 -52 028 degrees QTc Int : 428 ms Sinus rhythm with 1st degree A-V block Left anterior fascicular block Poor R wave progression Abnormal ECG Confirmed by BETH GRACIA, BRAYDEN ([id number]), film editor YESSICA HUMPHRIES ([id number]) on 12/17/2020 8:09:13 AM Referred By: RAFAEL Confirmed By:BRAYDEN CAMPOS MD
[2020-12-12] MEDS: dexAMETHasone 10 MG/ML Vial 6 MG IV (12:33)
--- NOTE | 2020-12-12 12:45 | RAD_ITS ---
STUDY: X-RAY CHEST REASON FOR EXAM: Female, 70 years old. Cough . Shortness of breath. Fever and headache. Covid positive. TECHNIQUE: Single AP portable view of the chest. COMPARISON: Comparison is made with prior examination dated 01/31/2020. FINDINGS: EKG electrodes are seen. There now is evidence of bilateral patchy pulmonary infiltrates in the preferential peripheral distribution in keeping with the patient''s history of Covid.There is no demonstrated pleural abnormality. Normal size heart. Normal mediastinum and colt. Normal visualized pulmonary arteries. Normal visualized aortic arch and descending thoracic aorta. There are diffuse degenerative changes of the visualized thoracic spine. Normal visualized ribs, clavicles, and shoulders. There is no demonstrated abnormality of the visualized soft tissue structures of the upper abdomen. RAD/Chest 1 View (Portable) IMPRESSION: Patchy bilateral pulmonary infiltrates. Electronically Signed: Joshua Barksdale MD at 13:12 EDT , Service support ,
[2020-12-12 12:47] LABS: Absolute Lymphocyte Count 1.02 X10^3/uL (0.83-4.51); Absolute Neutrophil Count 3.4 X10^3/uL (2.0-7.7); Basophil# 0.02 X10^3/uL; Basophil% 0.4 % (0-1); Eosinophil# 0.08 X10^3/uL; Eosinophils% 1.6 % (0-5); Hematocrit 39.3 % (37-47); Hemoglobin 12.3 g/dL (12.0-15.0); Lymphocyte # 1.02 X10^3/ul (4.0); Lymphocyte % 20.2 % (19-41); Mean Corp Hgb Conc 31.3 g/dL (32-36); Mean Corpuscular Hgb 26.5 pg (27.0-32.0); Mean Corpuscular Volume 84.5 fL (81-99); Mean Platelet Vol. 10.2 fl (6.2-12.0); Monocyte# 0.51 X10^3/uL; Monocyte% 10.1 % (0-10); NRBC Flagged by Analyzer 0 % (0-5); Neutrophil % 67.3 % (47-70); Platelet Count 236 K/mm3 (150-450); RBC Distribution Width CV 15.2 % (11.6-14.6); RBC Distribution Width SD 46.9 fl (35.1-43.9); Red Blood Count 4.65 M/mm3 (4.2-5.4); White Blood Count 5.1 K/mm3 (4.4-11.0)
--- NOTE | 2020-12-12 12:54 | ED.DCSUM_ITS ---
- ER Visit Summary Date of Service: 12/12/20 Chief Complaint: Shortness of breath History of Present Illness: The patient is a 70 F who presents with shortness of breath that has been getting worse since yesterday. Patient states it is gradually gotten worse. Patient was diagnosed with Covid yesterday. Patient states her breathing is worse with any exertion. Patient states nothing seems to help it. Patient admits to a cough but denies any sputum production. Patient admits to a temperature of 100.2 at home. Patient states her pulse ox readings were down to 73% on room air. Patient states she was sitting down when this occurred. Patient does admit to some palpitations but denies any chest prateek n. Physical Examination: Vital signs are stable except for mild tachypnea of 22. Pulse oximeter was 83% on room air. Patient is in no acute distress. Oral mucosa is pink and moist. Neck is supple. Trachea is midline. There is no JVD. Heart was regular rate and rhythm. Lungs were slightly diminished but clear bilaterally. There is good respiratory effort noted. Abdomen is soft. Bowel sounds are normal. There is no tenderness. Cranial nerves II through XII are intact. There are no focal motor or sensory deficits. Extremities are intact. There is no calf tenderness or edema. Test Results: EKG was obtained. On my interpretation, it showed a normal sinus rhythm with a rate of 71. RI interval, QRS interval, and QTc intervals were all normal. There is left axis deviation. There is a left anterior fascicular block. There are no acute ST or T wave changes. Portable chest x-ray was obtained. There is 1 view. On my interpretation, there are bilateral infiltrates. There is no pneumothorax. There is no cardiomegaly. Bony thorax is normal. Radiologist also interpreted the x-ray and agrees. CBC was within normal limits. Comprehensive metabolic profile was within normal limits. Troponin was normal. COVID-19 rapid antigen was positive. Emergency Department Course and Treatment: Patient was placed on oxygen. Patient was given 6 puffs of albuterol. Patient was given a dose of Decadron here. Patient is feeling somewhat better on reevaluation. She is resting comfortably on the bed. Case was discussed with the hospitalist. He will admit the patient. Patient understood and was agreeable with the plan. All questions were answered. Disposition: Admit to hospital Impression: COVID-19 pneumonia This note was generated with [employer] dictation software. It may contain incorrect words, spelling, and punctuation that were not noted in review of the chart prior to signing ED Disposition - Plan for ED Patient: Disposition: Acute Care Hospital [facility] Diagnosis: Pneumonia due to COVID-19 virus Referrals: Les Valenzuela MD [Primary Care Provider] -
[2020-12-12 13:09] LABS: ALB/GLOB Ratio 0.8 RATIO (0.9-2.4); AST(SGOT) 33 U/L (15-37); Alanine Aminotransfer ALT/SGPT 29 U/L (13-56); Alkaline Phosphatase 80 U/L (45-117); Anion Gap 7 (5-15); BUN 11 mg/dL (7-18); BUN/Creat Ratio 13.4 RATIO (10-20); Calcium,Total 8.4 mg/dL (8.5-10.1); Chloride 104 mmol/L (98-107); Creatinine, Serum 0.82 mg/dL (0.55-1.02); EST Glomerular Filtration Rate 74 mL/min (>60); Est Glom Filt Rate - Afr Amer 89 mL/min (>60); Estimated Creatinine Clearance 51.21 ml/min; Glucose 112 mg/dL (74-106); Potassium 3.9 mmol/L (3.5-5.1); Sodium Level 139 mmol/L (136-145)
[2020-12-12 13:14] LABS: Lactic Acid 1.3 mmol/L (0.4-1.9)
[2020-12-12 14:28] LABS: BNP,B-Type NATRIURETIC PEPTIDE 33.2 pg/mL (0-100)
[2020-12-12 14:29] LABS: CPK Total, Creatine Kinase 59 U/L (26-192)
[2020-12-12 14:34] LABS: Procalcitonin 0.05 ng/mL (0.00-0.09)
--- NOTE | 2020-12-12 14:35 | HP.PCM_ITS ---
Problem List (1) Acute respiratory failure with hypoxia Status: Acute (2) Pneumonia due to COVID-19 virus Status: Acute (3) History of lung surgery Status: Chronic Comment: Wedge resection of LLL (4) JAJA treated with BiPAP Status: Chronic (5) Fibromyalgia Status: Chronic (6) Pulmonary hypertension Status: Suspected (7) History of lung cancer Status: Chronic Comment: Status post left lower lobe pneumectomy. (8) Hyperlipidemia Status: Chronic (9) Anxiety Status: Chronic (10) Depression Status: Chronic (11) Type 2 diabetes mellitus Status: Chronic History of Present Illness Date of Admission: 12/12/20 Chief Complaint: Shortness of breath. The patient is a 70 year old F with past medical history as mentioned above presented to the emergency room because of shortness of breath. Her symptoms started 2 days ago on December 09, 2020 with shortness of breath, exertional, aggravated by activity and associated with mild dry cough as well as low-grade fever of 100.2 Fahrenheit. She reported associated weakness. She denied loss of taste or smell. She had COVID-19 testing done yesterday as outpatient that came back positive. Since yesterday, her symptoms have been getting worse and her pulse oximeter was 72% on room air at home today. In the emergency department, she was afebrile, blood pressure and heart rate are stable, pulse ox was 77% on room air, came up to 94% on 5 L. She is not on home oxygen. Routine blood work was unremarkable. LFT was unremarkable. Lactic acid was normal. EKG revealed normal sinus rhythm with first-degree AV block, TX interval of 216 ms, no acute ischemic changes. Chest x-ray revealed patchy bilateral lung infiltrate. COVID-19 antigen came back positive today. She is being admitted for acute bilateral COVID-19 pneumonia with acute hypoxic respiratory failure. Past Medical History Past Medical History (Chronic Problems): Chronic Problems (Last Updated 12/12/20 @ 14:[address] Hiren Card MD) Bronchiectasis (Chronic) Coronary artery disease (Chronic) History of lung surgery (Chronic 12/2016) Wedge resection of LLL JAJA treated with BiPAP (Chronic) Neuropathy (Chronic) Fibromyalgia (Chronic) Chronic idiopathic thrombocytopenia (Chronic) Osteopenia (Chronic) Essential hypertension (Chronic) History of lung cancer (Chronic) Status post left lower lobe pneumectomy. History of stroke (Chronic) Hyperlipidemia (Chronic) Anxiety (Chronic) Depression (Chronic) Type 2 diabetes mellitus (Chronic) Medical History: Medical History (Last Updated 12/12/20 @ 14:[address] Hiren Card MD) JAJA treated with BiPAP (Chronic) G47.33 Neuropathy (Chronic) G62.9 Fibromyalgia (Chronic) M79.7 Chronic idiopathic thrombocytopenia (Chronic) D69.3 Osteopenia (Chronic) M85.80 Essential hypertension (Chronic) I10 Pulmonary hypertension (Suspected) I27.20 History of lung cancer (Chronic) Z85.118 Status post left lower lobe pneumectomy. History of stroke (Chronic) Z86.73 Hyperlipidemia (Chronic) E78.5 Anxiety (Chronic) F41.9 Depression (Chronic) F32.9 Type 2 diabetes mellitus (Chronic) E11.9 Allergies lisinopril Allergy (Intermediate, Verified 12/12/20 11:16) cough Home Medications: Ambulatory Orders Medication Instructions Recorded Amlodipine [Norvasc] 10 mg PO DAILY 02/22/18 Fluoxetine HCl 40 mg PO DAILY 02/22/18 Hydroxyzine HCl 25 mg PO QHS 02/22/18 Ipratropium/Albuterol Sulfate 3 ml INHALATION Q6H.RT PRN #30 06/12/19 [Duoneb] ampul.neb calcium carbonate 500 mg (1,250 1 tab PO DAILY 07/11/19 mg)-vitamin D3 200 unit tablet carvedilol 12.5 mg tablet 12.5 mg PO BID #60 tab 08/06/19 losartan 25 mg tablet 25 mg PO DAILY 10/30/19 Albuterol Sulfate [Albuterol 2 puff INHALATION Q4H PRN 12/12/20 Sulfate HFA] Alendronate Sodium [Fosamax] 70 mg PO NICKERSON 12/12/20 Aspirin E.C. [Ecotrin] 81 mg PO DAILY@0800 12/12/20 Metformin HCl [Metformin HCl ER] 1,000 mg PO BID 12/12/20 Simvastatin 20 mg PO QHS 12/12/20 Surgical History: Surgical History (Last Updated 12/12/20 @ 14:[address] Hiren Card MD) History of lung surgery (Chronic) Onset Date: 12/2016 Z98.890 Wedge resection of LLL History of arthroscopic knee surgery (Inactive) Z98.890 History of cataract extraction with lens replacement (Inactive) History of section (Inactive) Z98.891 History of hand surgery (Inactive) Z98.890 cyst removal from left thumb History of hysterectomy (Inactive) Z90.710 for uterine cancer History of tonsillectomy (Inactive) Z90.89 Surgical History: tonsillectomy, - Psychiatric History: Anxiety, Depression [employer] History: No pertinent [employer] history Lives: Spouse/ Significant Other Smoking Status: Former smoker Alcohol: None Drugs: None - *Family History Maternal Family History: Family History (Last Reviewed 05/14/20 @ 13:14 by Mariaa Matthews) Mother Diabetes Arthritis Sister Cancer Brother Cancer History Items: Diabetes, Hypertension Paternal Family History: Family History (Last Reviewed 05/14/20 @ 13:14 by Mariaa Matthews) Mother Diabetes Arthritis Sister Cancer Brother Cancer History Items: - - He does not know her paternal medical history Review of Systems Constitutional: Reports: Fever, Weakness. Denies: Anorexia, Chills Eyes: Denies: Blurred vision, Double vision, Drainage, Redness HEENT: Denies: Difficulty Hearing, Ear Pain, Eye Pain, Nasal Congestion, Sore Throat Cardiovascular: Denies: Chest Pain, Chest Pressure, Edema, Heaviness, Palpitations, Syncope Respiratory: Reports: Cough, Shortness of breath upon exertion. Denies: Hemoptysis, Pleuritic Pain, Sputum production, Wheezing Gastrointestinal: Denies: Abdominal Pain, Constipation, Diarrhea, Nausea, Vomiting Genitourinary: Denies: Dysuria, Frequency, Hematuria Musculoskeletal: Denies: Arm Pain, Back Pain, Foot Pain Skin: Denies: Dryness, Rash Neurological: Denies: Balance problems, Blurred vision, Double vision, Change in Speech, Slurred speech, Confusion, Headaches, Incoordination Psychiatric: Reports: Anxiety, Depression Endocrine: Denies: Change in Body Habitus, Polydipsia, Polyuria VTE Information - Inpt Only VTE Present on Admission: No VTE Mechan Device Prophylaxis: None VTE Pharm Prophylaxis ordered?: Yes Patient Problems: Active and Suspected Problems (Last Updated 12/12/20 @ 14:[address] Hiren moore MD) Pneumonia due to COVID-19 virus (Acute) - Physical Exam Vitals/I&O's: Vital Signs Temp Pulse Resp BP Pulse Ox 98.6 F 61 24 H 137/70 H 94 12/12/20 13:35 12/12/20 13:35 12/12/20 13:35 12/12/20 13:35 12/12/20 13:35 Oxygen Flow Rate (L/min) 5 Oxygen Delivery Method Nasal Cannula Weight: 269 lb 2.951 oz Body Mass Index (BMI) 49.2 General: Alert, Oriented x3, Cooperative, - - Minimally short of breath. HEENT: Atraumatic, PERRLA, EOMI, Normocephalic Oral: Moist Mucosa, No Gingival or Mucosal Lesions/ Ulcerations Neck: Supple, No JVD, Negative Carotid Bruits, Trachea Midline, Thyroid Normal Size and Texture Lungs: Clear to auscultation, No rhonchi, No wheeze, No rales, Diminished Cardiovascular: Regular rate, Regular Rhythm, Normal S1, Normal S2, PMI Normal Abdomen: Bowel Sounds Present, Soft, Non Tender, Non-Distended, No Hepato- splenomegaly, Obese Extremities: No clubbing, No cyanosis, No edema Skin: No rashes, No breakdown Lymphatic: No Cervical, Supraclavicular, or Inguinal Adenopathy Neurological: Cranial nerves II-XII grossly intact, Motor Exam 5/5 strength throughout Psych/Mental Status: Normal Affect, Appropriate, Alert and oriented to time, place, person, mood and affect Microbiology Past 72 Hours 12/12/20 12:40 Mucosa - Nose SARS-CoV-2 Antigen (Rapid) - Final SARS-CoV-2 (COVID 19) Laboratory Results 12/12/20 12:10: Procalcitonin 0.05 12/12/20 12:20: WBC 5.1, RBC 4.65, Hgb 12.3, Hct 39.3, MCV 84.5, MCH 26.5 L, MCHC 31.3 L, RDW Std Deviation 46.9 H, RDW Coeff of Erica 15.2 H, Plt Count 236, MPV 10.2, Immature Gran % (Auto) 0.400, Neut % (Auto) 67.3, Lymph % (Auto) 20.2, [place] % (Auto) 10.1 H, Eos % (Auto) 1.6, Baso % (Auto) 0.4, Absolute Neuts (auto) 3.4, Absolute Lymphs (auto) 1.02, Nucleated RBC % 0 12/12/20 12:20: Sodium 139, Potassium 3.9, Chloride 104, Carbon Dioxide 28.0, Anion Gap 7, BUN 11, Creatinine 0.82, Estim Creat Clear Calc 51.21, Est GFR (MDRD) Af Amer 89, Est GFR (MDRD) Non-Af 74, BUN/Creatinine Ratio 13.4, Glucose 112 H, Calcium 8.4 L, Total Bilirubin 0.40, AST 33, ALT 29, Alkaline Phosphatase 80, Troponin I < 0.015, Total Protein 7.0, Albumin 3.0 L, Globulin 4.0, Albumin/Globulin Ratio 0.8 L 12/12/20 12:20: Lactic Acid 1.3 12/12/20 12:20: D-Dimer Quant (PE/DVT) Pending 12/12/20 12:20: Alkaline Phosphatase Cancelled, Total Creatine Kinase 59 12/12/20 12:20: B-Natriuretic Peptide 33.2 Clinical Impression(s) from Imaging Studies Chest X-Ray 12/12/20 12:45 IMPRESSION: Patchy bilateral pulmonary infiltrates. Electronically Signed: Joshua Barksdale MD at 13:12 EDT , Service support , Current Medications Acetaminophen (Acetaminophen 325 Mg Tablet) 650 mg PO Q6H PRN PRN PRN Reason: Pain Score 1-10/Temp > 100.7 F Albuterol Sulfate (Albuterol Ih 8.5 Gm (Proair) Inhaler (200 Puffs)) 2 puff INHALATION Q4H PRN PRN PRN Reason: Shortness of breath, wheezing Amlodipine Besylate (Amlodipine 10 Mg Tablet) 10 mg PO DAILY [facility] Aspirin (Aspirin E.C. 81 Mg Tablet) 81 mg PO DAILY@0800 [facility] Carvedilol (Carvedilol 12.5 Mg Tablet) 12.5 mg PO BID [facility] Dexamethasone (Dexamethasone 4 Mg Tablet) 6 mg PO DAILY@0800 [facility] Enoxaparin Sodium (Enoxaparin 40 Mg/0.4 Ml Syringe) 40 mg SC BID [facility] Fluoxetine HCl (Fluoxetine 20 Mg Capsule) 40 mg PO DAILY [facility] Hydroxyzine Pamoate (Hydroxyzine Annmarie 25 Mg Capsule) 25 mg PO QHS [facility] Remdesivir 200 mg/ Sodium (Chloride) 250 mls @ 125 mls/hr IV X1 ONE; Protocol Stop: 12/12/20 16:59 Remdesivir 100 mg/ Sodium (Chloride) 250 mls @ 125 mls/hr IV DAILY [facility]; Protocol Stop: 12/16/20 11:59 Losartan Potassium (Losartan Potassium 25 Mg Tablet) 25 mg PO DAILY [facility] Metformin HCl (Metformin (Xr) 500 Mg Tablet) 1,000 mg PO BID [facility] Non-Formulary Medication (Simvastatin) 20 mg PO QHS [facility] Ondansetron HCl (Ondansetron 4 Mg/2 Ml Vial) 4 mg IV Q8H PRN PRN PRN Reason: NAUSEA/VOMITING Fluticasone/Salmeterol (Fluticasone/Salmeterol 500/50 Inhaler) 1 puff INHALATION BID [facility] Senna/Docusate Sodium (Senna/Docusate Sodium 1 Tablet) 2 tablet PO BID PRN PRN PRN Reason: Constipation Sodium Chloride (0.9% Saline Lock 10 Ml Syringe) 10 - 40 ml IV UD PRN PRN Reason: SALINE FLUSH Zolpidem Tartrate (Zolpidem Tartrate 5 Mg Tablet) 5 mg PO QHS PRN PRN PRN Reason: INSOMNIA Assessment/Plan All Active Problems (Last Updated 12/12/20 @ 14:[address] Hiren Card MD) Acute respiratory failure with hypoxia (Acute) Pneumonia due to COVID-19 virus (Acute) This is a 70 years old female patient presented to the emergency room because of worsening shortness of breath, low-grade fever and weakness and she was found to have patchy bilateral lung infiltrate on chest x-ray, tested positive for COVID- 19 yesterday as well as today and she is being admitted for acute bilateral COVID-19 pneumonia and acute hypoxic respiratory failure. #1 acute bilateral COVID-19 pneumonia: Patient tested positive for COVID-19 yesterday as well as today. Chest x-ray reviewed. Currently, she is on 5 L oxygen, not on home oxygen. D-dimer was done and was elevated. Plan: Admit to [facility] [place] COVID-19 floor, isolation precautions, check BMP, CPK and procalcitonin, PT and INR, start p.o. Decadron, IVIG severe, CTA chest, Tylenol as needed, Zofran as needed, IV fluids, infectious disease consult, pulmonology consult, albuterol inhaler as needed, Advair inhaler twice daily, incentive spirometer, repeat CBC and CMP tomorrow morning, PT OT evaluation and treatment. #2 acute hypoxic respiratory failure: Secondary to #1. In addition, patient with history of bronchiectasis and obstructive sleep apnea. Also, she had history of lung cancer status post left lower lobe pneumonectomy. She never been on oxygen at home. Plan as above, pulmonology consult. #3 type 2 diabetes mellitus: ADA diet, Accu-Cheks, insulin sliding scale, hold Metformin. #4 hypertension: Blood pressure stable, continue Norvasc and Coreg as well as losartan. #5 history of lung cancer: Status post left lower lobe pneumonectomy, in remission. #6 hyperlipidemia: Continue statins. #7 anxiety and depression: Continue fluoxetine. #8 CODE STATUS: I discussed different code types with the patient. Initially, she is stated that she does not want any intubation or mechanical ventilation. Shortly after, she mentioned that she is not sure and she wants to talk to her danii damian. At this time, she is full code. #9 DVT prophylaxis: Subcu Lovenox twice daily. This note was generated with uromovie dictation software. It may contain incorrect words, spelling, and punctuation that were not noted in checking the note before signing. Inpatient E&M: 39487 Init Hosp L3
[2020-12-12 14:41] LABS: D-Dimer Quantitative (DVT/PE) 0.69 FEU/ug/m (0.27-0.49)
--- NOTE | 2020-12-12 14:45 | CT_ITS ---
STUDY: CTA CHEST REASON FOR EXAM: Female, 70 years old. Elevated D-dimer shortness of breath, cough and chest pain. RADIATION DOSAGE (If Supplied By Facility): CTDIvol = ( 11.475 ) mGy, DLP = ( 530.36 ) mGycm TECHNIQUE: The examination was performed with the intravenous administration of IV 100mL [id number]-[id number]. Post-processing of the angiographic images was performed, with multiplanar reformation and 3D reconstruction. Individualized dose optimization techniques were used for this CT. COMPARISON: Portable chest radiograph of 12/12/[address] exam of 10/08/2019 FINDINGS: Diffuse contrast bolus. Limited for evaluation of peripheral pulmonary emboli due to poor opacification. Negative for large central embolus or embolus in major lobar and most segmental branches. There is no demonstrated pulmonary embolism. Minimal plaque and mild elongation of the thoracic aorta without aneurysm. There is no demonstrated aortic dissection. Normal heart and pericardium. Few shotty mediastinal lymph nodes. Normal hilar regions. Numerous small to moderate size groundglass pulmonary infiltrates more extensively in the right upper lobe. Negative for pleural effusion. Normal chest wall structures. There are degenerative changes of thoracic spine. No acute findings in the uppermost abdomen. CT/CTA Chest W/WO Contrast IMPRESSION: Due to diffuse contrast bolus limited for exclusion of peripheral pulmonary emboli. Negative for large central embolus, embolus in the lobar and segmental branches. Minimal atherosclerotic changes of the aorta without aneurysm or dissection. Normal cardiac size without pericardial effusion. Numerous small to moderate size groundglass pulmonary infiltrates bilaterally with more extensive infiltrate in the right upper lobe. Negative for pleural effusion. These findings are commonly reported with Covid 19 pneumonia. No acute bone findings. No acute findings in the uppermost abdomen. Electronically Signed: La Florian MD at 21:50 EDT , Service support ,
[2020-12-12 14:59] LABS: International Normalized Ratio 1.1; Prothrombin Time (Protime)PT. 13.1 SECONDS (11.7-14.9)
[2020-12-12] MEDS: 0.9% Normal Saline 1,000 ML 75 ML IV (15:13)
[2020-12-12] MEDS: 0.9% Saline Lock 10 ML Syringe IV (15:16)
--- NOTE | 2020-12-12 16:04 | CPS ---
Bipap set up for HS use.
--- NOTE | 2020-12-12 16:26 | PCM.CONS.PUL ---
Problem List (1) Acute respiratory failure with hypoxia Status: Acute (2) Pneumonia due to COVID-19 virus Status: Acute (3) Bronchiectasis Status: Chronic Qualifiers: Bronchiectasis type: uncomplicated Qualified Code(s): J47.9 - Bronchiectasis, uncomplicated (4) History of lung surgery Status: Chronic Comment: Wedge resection of LLL (5) JAJA treated with BiPAP Status: Chronic (6) Neuropathy Status: Chronic (7) Fibromyalgia Status: Chronic (8) Osteopenia Status: Chronic (9) Essential hypertension Status: Chronic (10) Pulmonary hypertension Status: Suspected (11) History of lung cancer Status: Chronic Comment: Status post left lower lobe pneumectomy. (12) History of stroke Status: Chronic (13) Hyperlipidemia Status: Chronic (14) Anxiety Status: Chronic (15) Depression Status: Chronic Reason for Consult Date of Consultation: 12/12/20 Reason for Consultation: Respiratory failure History of Present Illness: The patient is a 70 year old F, with past medical history listed below and known to our office through Dr. Zheng, who presented to [facility] on 12/12/2020 secondary to progressive shortness of breath over the last 24 to 48 hours. Patient reportedly was diagnosed with COVID-19 yesterday and had reported progressive shortness of breath. Patient did have a cough, but did not have any production. Temperature at home was 100.2 ?F and saturations were noted to be 73% on room air. Patient states there was some improvement with sitting still initially, but prior to presentation she was having symptoms consistently. On arrival to the ER, patient was tachypneic at 22 breaths/min and hypoxic at 83% on room air. Despite desaturation, patient reportedly appeared relatively comfortable. EKG was obtained and was relatively unremarkable. There was some left axis deviation with a left anterior fascicular block. Chest x-ray showed bilateral infiltrates without pneumothorax. There is no cardiomegaly noted. Laboratory work-up was relatively unremarkable including a normal troponin. COVID-19 was positive. Patient received albuterol and Decadron with some improvement. Patient was admitted to the floor for further evaluation. Since being admitted to the floor, patient feels subjectively improved. Patient states that the oxygen did the trick. Patient does not require supplemental oxygen at baseline. Patient does have obstructive sleep apnea, but has been compliant with BiPAP therapy. Patient is unclear on her potential exposure. Patient states she has been compliant with her baseline medications. Patient does have an extensive respiratory history including lung cancer status post resection. Patient has not reported any increase in lower extremity edema or painful limbs. Patient does state that she is a difficult access. Review of systems otherwise negative from a constitutional, HEENT, respiratory, cardiovascular, GI, genitourinary, musculoskeletal, skin, neurologic, psychiatric and hematologic system unless stated above. Past Medical History Past Medical History (Chronic Problems): Chronic Problems (Last Updated 12/12/20 @ 14:[address] Hiren Card MD) Bronchiectasis (Chronic) Coronary artery disease (Chronic) History of lung surgery (Chronic 12/2016) Wedge resection of LLL JAJA treated with BiPAP (Chronic) Neuropathy (Chronic) Fibromyalgia (Chronic) Chronic idiopathic thrombocytopenia (Chronic) Osteopenia (Chronic) Essential hypertension (Chronic) History of lung cancer (Chronic) Status post left lower lobe pneumectomy. History of stroke (Chronic) Hyperlipidemia (Chronic) Anxiety (Chronic) Depression (Chronic) Type 2 diabetes mellitus (Chronic) Medical History: Medical History (Last Updated 12/12/20 @ 14:[address] Hiren Card MD) JAJA treated with BiPAP (Chronic) G47.33 Neuropathy (Chronic) G62.9 Fibromyalgia (Chronic) M79.7 Chronic idiopathic thrombocytopenia (Chronic) D69.3 Osteopenia (Chronic) M85.80 Essential hypertension (Chronic) I10 Pulmonary hypertension (Suspected) I27.20 History of lung cancer (Chronic) Z85.118 Status post left lower lobe pneumectomy. History of stroke (Chronic) Z86.73 Hyperlipidemia (Chronic) E78.5 Anxiety (Chronic) F41.9 Depression (Chronic) F32.9 Type 2 diabetes mellitus (Chronic) E11.9 Allergies lisinopril Allergy (Intermediate, Verified 12/12/20 11:16) cough Home Medications: Ambulatory Orders Medication Instructions Recorded Amlodipine [Norvasc] 10 mg PO DAILY 02/22/18 Fluoxetine HCl 40 mg PO DAILY 02/22/18 Hydroxyzine HCl 25 mg PO QHS 02/22/18 Ipratropium/Albuterol Sulfate 3 ml INHALATION Q6H.RT PRN #30 06/12/19 [Duoneb] ampul.neb calcium carbonate 500 mg (1,250 1 tab PO DAILY 07/11/19 mg)-vitamin D3 200 unit tablet carvedilol 12.5 mg tablet 12.5 mg PO BID #60 tab 08/06/19 losartan 25 mg tablet 25 mg PO DAILY 10/30/19 Albuterol Sulfate [Albuterol 2 puff INHALATION Q4H PRN 12/12/20 Sulfate HFA] Alendronate Sodium [Fosamax] 70 mg PO NICKERSON 12/12/20 Aspirin E.C. [Ecotrin] 81 mg PO DAILY@0800 12/12/20 Metformin HCl [Metformin HCl ER] 1,000 mg PO BID 12/12/20 Simvastatin 20 mg PO QHS 12/12/20 Surgical History: Surgical History (Last Updated 12/12/20 @ 14:[address] 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 Lives: Spouse/ Significant Other Smoking Status: Former smoker Alcohol: None Drugs: None - *Family History Maternal Family History: Family History (Last Reviewed 05/14/20 @ 13:14 by Mariaa Matthews) Mother Diabetes Arthritis Sister Cancer Brother Cancer History Items: Diabetes, Hypertension Paternal Family History: Family History (Last Reviewed 05/14/20 @ 13:14 by Mariaa Matthews) Mother Diabetes Arthritis Sister Cancer Brother Cancer History Items: - - He does not know her paternal medical history Review of Systems Comment: See HPI Patient Problems: Active and Suspected Problems (Last Updated 12/12/20 @ 14:[address] Hiren Card MD) Pneumonia due to COVID-19 virus (Acute) Objective: All imaging was personally reviewed. Agree with formal interpretation. Patient did have a pulmonary function test completed in 2019 showing a mild restrictive ventilatory defect with a disproportionate reduction in DLCO (FVC 67%, FEV1 71%, TLC 75%, DLCO 53%). An echocardiogram was completed around the same time showing an EF of 55% with no mention of pulmonary artery pressures. Documentation from the outpatient office was reviewed. Patient has been compliant with BiPAP 18/14 centimeters of water - Physical Exam Vitals/I&O's: Vital Signs Temp Pulse Resp BP Pulse Ox 37.1 C 61 17 131/65 H 93 12/12/20 16:00 12/12/20 16:00 12/12/20 16:00 12/12/20 16:00 12/12/20 16:00 Oxygen Flow Rate (L/min) 5 Oxygen Delivery Method Nasal Cannula Weight: 122.1 kg Body Mass Index (BMI) 49.2 Intake and Output for Last 24 Hours 12/10/20 12/11/20 12/12/20 23:59 23:59 23:59 Intake Total 3.75 / 3.75 Balance 3.75 / 3.75 General: Alert, Oriented x3, Cooperative, - - Mild conversational dyspnea. Morbidly obese. HEENT: Atraumatic, PERRLA, EOMI, Normocephalic, - - No scleral icterus or injection noted Oral: Moist Mucosa, No Gingival or Mucosal Lesions/ Ulcerations, - - Carotid posterior pharynx Neck: Supple, No JVD, No Nodes, Trachea Midline Lungs: No rhonchi, No wheeze, No rales, Diminished, - - Symmetric expansion. No dullness to percussion. Cardiovascular: Regular rate, Regular Rhythm, Normal S1, Normal S2, No murmurs, No rub noted, No Gallop Abdomen: Bowel Sounds Present, Soft, Non Tender, Non-Distended, Obese Extremities: No clubbing, No cyanosis, Edema - Trace lower extremity Skin: No rashes, No breakdown Musculoskeletal: No Tenderness to Palpation of Joints or Extremities Lymphatic: No Cervical, Supraclavicular, or Inguinal Adenopathy Neurological: Cranial nerves II-XII grossly intact, Neuro grossly intact, Motor Exam 5/5 strength throughout Psych/Mental Status: Alert and oriented to time, place, person, mood and affect Microbiology Past 72 Hours 12/12/20 12:40 Mucosa - Nose SARS-CoV-2 Antigen (Rapid) - Final SARS-CoV-2 (COVID 19) Laboratory Results 12/12/20 12:10: Procalcitonin 0.05 12/12/20 12:20: WBC 5.1, RBC 4.65, Hgb 12.3, Hct 39.3, MCV 84.5, MCH 26.5 L, MCHC 31.3 L, RDW Std Deviation 46.9 H, RDW Coeff of Erica 15.2 H, Plt Count 236, MPV 10.2, Immature Gran % (Auto) 0.400, Neut % (Auto) 67.3, Lymph % (Auto) 20.2, [place] % (Auto) 10.1 H, Eos % (Auto) 1.6, Baso % (Auto) 0.4, Absolute Neuts (auto) 3.4, Absolute Lymphs (auto) 1.02, Nucleated RBC % 0 12/12/20 12:20: Sodium 139, Potassium 3.9, Chloride 104, Carbon Dioxide 28.0, Anion Gap 7, BUN 11, Creatinine 0.82, Estim Creat Clear Calc 51.21, Est GFR (MDRD) Af Amer 89, Est GFR (MDRD) Non-Af 74, BUN/Creatinine Ratio 13.4, Glucose 112 H, Calcium 8.4 L, Total Bilirubin 0.40, AST 33, ALT 29, Alkaline Phosphatase 80, Troponin I < 0.015, Total Protein 7.0, Albumin 3.0 L, Globulin 4.0, Albumin/Globulin Ratio 0.8 L 12/12/20 12:20: Lactic Acid 1.3 12/12/20 12:20: D-Dimer Quant (PE/DVT) 0.69 H* 12/12/20 12:20: Alkaline Phosphatase Cancelled, Total Creatine Kinase 59 12/12/20 12:20: B-Natriuretic Peptide 33.2 12/12/20 12:20: PT 13.1, INR 1.1 Current Medications Acetaminophen (Acetaminophen 325 Mg Tablet) 650 mg PO Q6H PRN PRN PRN Reason: Pain Score 1-10/Temp > 100.7 F Albuterol Sulfate (Albuterol Ih 8.5 Gm (Proair) Inhaler (200 Puffs)) 2 puff INHALATION Q4H PRN PRN PRN Reason: Shortness of breath, wheezing Amlodipine Besylate (Amlodipine 10 Mg Tablet) 10 mg PO DAILY [facility] Aspirin (Aspirin E.C. 81 Mg Tablet) 81 mg PO DAILY@0800 [facility] Atorvastatin Calcium (Atorvastatin Calcium 10 Mg Tablet) 10 mg PO QHS [facility] Carvedilol (Carvedilol 12.5 Mg Tablet) 12.5 mg PO BID [facility] Dexamethasone (Dexamethasone 4 Mg Tablet) 6 mg PO DAILY@0800 [facility] Enoxaparin Sodium (Enoxaparin 40 Mg/0.4 Ml Syringe) 40 mg SC BID [facility] Fluoxetine HCl (Fluoxetine 20 Mg Capsule) 40 mg PO DAILY [facility] Hydroxyzine Pamoate (Hydroxyzine Annmarie 25 Mg Capsule) 25 mg PO QHS [facility] Remdesivir 200 mg/ Sodium (Chloride) 250 mls @ 125 mls/hr IV X1 ONE; Protocol Stop: 12/12/20 16:59 Last Admin: 12/12/20 15:16 Dose: 125 mls/hr Documented by: Remdesivir 100 mg/ Sodium (Chloride) 250 mls @ 125 mls/hr IV DAILY [facility]; Protocol Stop: 12/16/20 11:59 Sodium Chloride () 250 mls @ 15 mls/hr IV .[id number] PRN PRN Reason: Saline Flush Sodium Chloride () 250 mls @ 15 mls/hr IV .[id number] PRN PRN Reason: Additional IVPB Infusion Sodium Chloride () 1,000 mls @ 75 mls/hr IV .[id number] [facility] Stop: 12/13/20 04:09 Last Infusion: 12/12/20 15:16 Dose: 0 mls/hr Documented by: Losartan Potassium (Losartan Potassium 25 Mg Tablet) 25 mg PO DAILY [facility] Ondansetron HCl (Ondansetron 4 Mg/2 Ml Vial) 4 mg IV Q8H PRN PRN PRN Reason: NAUSEA/VOMITING Fluticasone/Salmeterol (Fluticasone/Salmeterol 500/50 Inhaler) 1 puff INHALATION BID [facility] Senna/Docusate Sodium (Senna/Docusate Sodium 1 Tablet) 2 tablet PO BID PRN PRN PRN Reason: Constipation Sodium Chloride (0.9% Saline Lock 10 Ml Syringe) 10 - 40 ml IV UD PRN PRN Reason: SALINE FLUSH Last Admin: 12/12/20 15:16 Dose: 10 ml Documented by: Zolpidem Tartrate (Zolpidem Tartrate 5 Mg Tablet) 5 mg PO QHS PRN PRN PRN Reason: INSOMNIA Clinical Impression(s) from Imaging Studies Chest X-Ray 12/12/20 12:45 IMPRESSION: Patchy bilateral pulmonary infiltrates. Electronically Signed: Joshua Barksdale MD at 13:12 EDT , Service support , Assessment/Plan All Active Problems (Last Updated 12/12/20 @ 14:[address] Hiren Card MD) Acute respiratory failure with hypoxia (Acute) Pneumonia due to COVID-19 virus (Acute) RECOMMENDATIONS: 1. Agree with Decadron, Remdesivir and potential anticoagulation 2. Inhaled corticosteroids are likely not necessary, but DuoNeb can be used. 3. Wean oxygen as tolerated 4. Monitor blood sugars closely given Decadron 5. BiPAP with sleep IMPRESSIONS: 1. Acute hypoxic respiratory failure secondary to acute bilateral COVID-19 pneumonia Patient with patchy bilateral infiltrates with COVID-19. Patient did have an elevated D-dimer and is to have a CTA once venous access is obtained. Agree with Decadron, but inhaled corticosteroids are likely not necessary given systemic steroids. Will initiate Remdesivir. Patient will need a walking oximetry prior to discharge. Cannot exclude progression of disease as patient is relatively early with reported symptomatology. 2. Type 2 diabetes mellitus Patient on Metformin at baseline. Would hold this. Patient will need sliding scale insulin, but cannot exclude the need for basal insulin given Decadron therapy. We will continue to monitor closely. 3. History of lung cancer status post left lower lobe lobectomy/JAJA/pulmonary hypertension Relatively preserved lung function on previous PFT. We will continue with therapy as described in problem #1. Patient should be on BiPAP 18/14 centimeters of water with all sleep. Cannot exclude the need for increased FiO2 given acute status. Continuous pulse ox is ordered. 4. Hypertension/anxiety/depression/hyperlipidemia/advanced age/morbid obesity Complicates care, management, recovery and prognosis. Okay to continue with baseline medications. CODE STATUS is unclear at this time. Patient is a full code by default until she can talk with her daughter more extensively. Inpatient E&M: 88157 Init Hosp L3
[2020-12-12] MEDS: Enoxaparin 40 MG/0.4 ML Syringe SC (21:12)
[2020-12-12] MEDS: Atorvastatin Calcium 10 MG Tablet PO (21:12)
[2020-12-12] MEDS: Carvedilol 12.5 MG Tablet PO (21:12)
[2020-12-12] MEDS: hydrOXYzine PAM 25 MG Capsule PO (21:13)
[2020-12-13] VITALS (13 sets, daily range): BP systolic 131–162; BP diastolic 48–75; PULSE 48–63; RESP 12–29; TEMP 36.5–36.8; O2SAT 91–97
[2020-12-13 04:15] LABS: Absolute Lymphocyte Count 0.77 X10^3/uL (0.83-4.51); Absolute Neutrophil Count 2.1 X10^3/uL (2.0-7.7); Basophil# 0.01 X10^3/uL; Basophil% 0.3 % (0-1); Hematocrit 37.2 % (37-47); Hemoglobin 11.7 g/dL (12.0-15.0); Lymphocyte # 0.77 X10^3/ul (4.0); Lymphocyte % 23.7 % (19-41); Mean Corp Hgb Conc 31.5 g/dL (32-36); Mean Corpuscular Hgb 26.8 pg (27.0-32.0); Mean Corpuscular Volume 85.3 fL (81-99); Mean Platelet Vol. 10.2 fl (6.2-12.0); Monocyte# 0.34 X10^3/uL; Monocyte% 10.5 % (0-10); NRBC Flagged by Analyzer 0 % (0-5); Neutrophil # 2.12 X10^3/uL (2.7-7.7); Neutrophil % 65.2 % (47-70); Platelet Count 250 K/mm3 (150-450); RBC Distribution Width CV 14.9 % (11.6-14.6); Red Blood Count 4.36 M/mm3 (4.2-5.4); White Blood Count 3.3 K/mm3 (4.4-11.0)
[2020-12-13 04:33] LABS: ALB/GLOB Ratio 0.7 RATIO (0.9-2.4); AST(SGOT) 21 U/L (15-37); Alanine Aminotransfer ALT/SGPT 25 U/L (13-56); Albumin, Serum 2.8 g/dL (3.2-5.0); Alkaline Phosphatase 72 U/L (45-117); Anion Gap 6 (5-15); BUN 15 mg/dL (7-18); BUN/Creat Ratio 20.9 RATIO (10-20); Calcium,Total 8.3 mg/dL (8.5-10.1); Chloride 104 mmol/L (98-107); Creatinine, Serum 0.72 mg/dL (0.55-1.02); EST Glomerular Filtration Rate 86 mL/min (>60); Est Glom Filt Rate - Afr Amer 104 mL/min (>60); Estimated Creatinine Clearance 41.99 ml/min; Globulin 3.9 g/dL (2.2-4.2); Glucose 143 mg/dL (74-106); Potassium 3.8 mmol/L (3.5-5.1); Protein, Total 6.7 g/dL (6.4-8.2); Sodium Level 139 mmol/L (136-145)
--- NOTE | 2020-12-13 07:07 | PN_ITS ---
Patient Problems: Active and Suspected Problems (Last Updated 12/12/20 @ 14:[address] Hiren Card MD) Acute respiratory failure with hypoxia (Acute) Pneumonia due to COVID-19 virus (Acute) Pulmonary hypertension (Suspected) Reason for Visit: Follow-up on acute hypoxic respiratory failure/COVID-19 pneumonia Subjective: Patient was seen and examined. She feels improved. She is down to 3 L of oxygen. Denies any fever or chills. Objective: Physical exam: General: Alert, Oriented x3, Cooperative, morbidly obese, comfortable on 3 L of oxygen HEENT: Atraumatic, PERRLA, EOMI, Normocephalic Oral: Moist Mucosa, No Gingival or Mucosal Lesions/ Ulcerations Neck: Supple, No JVD, Negative Carotid Bruits, Trachea Midline, Thyroid Normal Size and Texture Lungs: Diminished Cardiovascular: Regular rate, Regular Rhythm, Normal S1, Normal S2, PMI Normal Abdomen: Bowel Sounds Present, Soft, Non Tender, Non-Distended, No Hepato- splenomegaly, Obese Extremities: No bilateral edema Skin: No rashes, No breakdown Lymphatic: No Cervical, Supraclavicular, or Inguinal Adenopathy Neurological: Cranial nerves II-XII grossly intact, Motor Exam 5/5 strength throughout Psych/Mental Status: Normal Affect, Appropriate, Alert and oriented to time, place, person, mood and affect Vitals/I&O's: Vital Signs Temp Pulse Resp BP Pulse Ox 98 F 56 L 20 H 133/72 H 94 12/13/20 03:50 12/13/20 03:50 12/13/20 03:50 12/13/20 03:50 12/13/20 03:50 Oxygen Flow Rate (L/min) 4 Oxygen Delivery Method Nasal Cannula Weight: 122.1 kg Body Mass Index (BMI) 49.2 Intake and Output for Last 24 Hours 12/11/20 12/12/20 12/13/20 23:59 23:59 23:59 Intake Total 1441.25 / 1441.25 471.25 / 471.25 Output Total 400 / 400 200 / 200 Balance 1041.25 / 1041.25 271.25 / 271.25 Microbiology Past 72 Hours 12/12/20 12:40 Mucosa - Nose SARS-CoV-2 Antigen (Rapid) - Final SARS-CoV-2 (COVID 19) Laboratory Results 12/12/20 12:10: Procalcitonin 0.05 12/12/20 12:20: WBC 5.1, RBC 4.65, Hgb 12.3, Hct 39.3, MCV 84.5, MCH 26.5 L, MCHC 31.3 L, RDW Std Deviation 46.9 H, RDW Coeff of Erica 15.2 H, Plt Count 236, MPV 10.2, Immature Gran % (Auto) 0.400, Neut % (Auto) 67.3, Lymph % (Auto) 20.2, [place] % (Auto) 10.1 H, Eos % (Auto) 1.6, Baso % (Auto) 0.4, Absolute Neuts (auto) 3.4, Absolute Lymphs (auto) 1.02, Nucleated RBC % 0 12/12/20 12:20: Sodium 139, Potassium 3.9, Chloride 104, Carbon Dioxide 28.0, Anion Gap 7, BUN 11, Creatinine 0.82, Estim Creat Clear Calc 51.21, Est GFR (M DRD) Af Amer 89, Est GFR (MDRD) Non-Af 74, BUN/Creatinine Ratio 13.4, Glucose 112 H, Calcium 8.4 L, Total Bilirubin 0.40, AST 33, ALT 29, Alkaline Phosphatase 80, Troponin I < 0.015, Total Protein 7.0, Albumin 3.0 L, Globulin 4.0, Albumin/Globulin Ratio 0.8 L 12/12/20 12:20: Lactic Acid 1.3 12/12/20 12:20: D-Dimer Quant (PE/DVT) 0.69 H* 12/12/20 12:20: Alkaline Phosphatase Cancelled, Total Creatine Kinase 59 12/12/20 12:20: B-Natriuretic Peptide 33.2 12/12/20 12:20: PT 13.1, INR 1.1 12/13/20 03:40: WBC 3.3 L, RBC 4.36, Hgb 11.7 L, Hct 37.2, MCV 85.3, MCH 26.8 L, MCHC 31.5 L, RDW Std Deviation 47.0 H, RDW Coeff of Erica 14.9 H, Plt Count 250, MPV 10.2, Immature Gran % (Auto) 0.300, Neut % (Auto) 65.2, Lymph % (Auto) 23.7, [place] % (Auto) 10.5 H, Eos % (Auto) 0.0, Baso % (Auto) 0.3, Absolute Neuts (auto) 2.1, Absolute Lymphs (auto) 0.77 L, Nucleated RBC % 0 12/13/20 03:40: Sodium 139, Potassium 3.8, Chloride 104, Carbon Dioxide 29.0, Anion Gap 6, BUN 15, Creatinine 0.72, Estim Creat Clear Calc 41.99, Est GFR (MDRD) Af Amer 104, Est GFR (MDRD) Non-Af 86, BUN/Creatinine Ratio 20.9 H, Glucose 143 H, Calcium 8.3 L, Total Bilirubin 0.30, AST 21, ALT 25, Alkaline Phosphatase 72, Total Protein 6.7, Albumin 2.8 L, Globulin 3.9, Albumin/Globulin Ratio 0.7 L Current Medications Acetaminophen (Acetaminophen 325 Mg Tablet) 650 mg PO Q6H PRN PRN PRN Reason: Pain Score 1-10/Temp > 100.7 F Albuterol Sulfate (Albuterol Ih 8.5 Gm (Proair) Inhaler (200 Puffs)) 2 puff INHALATION Q4H PRN PRN PRN Reason: Shortness of breath, wheezing Amlodipine Besylate (Amlodipine 10 Mg Tablet) 10 mg PO DAILY [facility] Aspirin (Aspirin E.C. 81 Mg Tablet) 81 mg PO DAILY@0800 [facility] Atorvastatin Calcium (Atorvastatin Calcium 10 Mg Tablet) 10 mg PO QHS [facility] Last Admin: 12/12/20 21:12 Dose: 10 mg Documented by: Carvedilol (Carvedilol 12.5 Mg Tablet) 12.5 mg PO BID [facility] Last Admin: 12/12/20 21:12 Dose: 12.5 mg Documented by: Dexamethasone (Dexamethasone 4 Mg Tablet) 6 mg PO DAILY@0800 [facility] Enoxaparin Sodium (Enoxaparin 40 Mg/0.4 Ml Syringe) 40 mg SC BID [facility] Last Admin: 12/12/20 21:12 Dose: 40 mg Documented by: Fluoxetine HCl (Fluoxetine 20 Mg Capsule) 40 mg PO DAILY [facility] Hydroxyzine Pamoate (Hydroxyzine Annmarie 25 Mg Capsule) 25 mg PO QHS [facility] Last Admin: 12/12/20 21:13 Dose: 25 mg Documented by: Remdesivir 100 mg/ Sodium (Chloride) 250 mls @ 125 mls/hr IV DAILY [facility]; Protocol Stop: 12/16/20 11:59 Sodium Chloride () 250 mls @ 15 mls/hr IV .[id number] PRN PRN Reason: Saline Flush Sodium Chloride () 250 mls @ 15 mls/hr IV .[id number] PRN PRN Reason: Additional IVPB Infusion Losartan Potassium (Losartan Potassium 25 Mg Tablet) 25 mg PO DAILY [facility] Ondansetron HCl (Ondansetron 4 Mg/2 Ml Vial) 4 mg IV Q8H PRN PRN PRN Reason: NAUSEA/VOMITING Fluticasone/Salmeterol (Fluticasone/Salmeterol 500/50 Inhaler) 1 puff INHALATION BID [facility] Last Admin: 12/12/20 21:12 Dose: 1 puff Documented by: Senna/Docusate Sodium (Senna/Docusate Sodium 1 Tablet) 2 tablet PO BID PRN PRN PRN Reason: Constipation Sodium Chloride (0.9% Saline Lock 10 Ml Syringe) 10 - 40 ml IV UD PRN PRN Reason: SALINE FLUSH Last Admin: 12/12/20 15:16 Dose: 10 ml Documented by: Zolpidem Tartrate (Zolpidem Tartrate 5 Mg Tablet) 5 mg PO QHS PRN PRN PRN Reason: INSOMNIA STROKE Vital Signs/Narrative: Vital Signs Temp Pulse Resp BP Pulse Ox 12/13/20 03:50 98 F 56 L 20 H 133/72 H 94 12/13/20 03:29 48 L Medical Necessity - Tobacco Use Smoking Status: Former smoker Assessment/Plan All Active Problems (Last Updated 12/12/20 @ 14:[address] Hiren Card MD) Acute respiratory failure with hypoxia (Acute) Pneumonia due to COVID-19 virus (Acute) 1. Acute hypoxic respiratory failure secondary to COVID-19 pneumonia Patient has improved and currently on 3 L of oxygen Continue with breathing treatments, steroids, encourage use of incentive spirometer. Wean off oxygen for SPO2 more than 94% 2. Acute COVID-19 pneumonia, bilateral extensive infiltrates seen on CTA of the chest Continue on the current regimen and remdesivir No liver abnormalities seen 3.Elevated D-dimer, CT of the chest negative for acute DVT 4. Hypertension, controlled, continue on amlodipine, carvedilol, losartan 5. Type II DM, Metformin on hold, will continue to monitor with blood glucose checks AC at bedtime 6. Hyperlipidemia, continue on statin 7. Anxiety/depression, stable, continue on Prozac 8. Prophylaxis with Lovenox subcu Inpatient E&M: 12662 Subs Hosp L2
--- NOTE | 2020-12-13 07:20 | PN_ITS ---
Patient Problems: Active and Suspected Problems (Last Updated 12/12/20 @ 14:[address] Hiren Card MD) Acute respiratory failure with hypoxia (Acute) Pneumonia due to COVID-19 virus (Acute) Pulmonary hypertension (Suspected) Subjective: Patient did well overnight. No acute issues were reported. Patient did wear BiPAP for approximately 5 hours. Patient has been stable on 4 to 5 L nasal cannula at rest. Patient denies any chest pain, abdominal pain, nausea or vomiting. No diarrhea has been reported. - Physical Exam Vitals/I&O's: Vital Signs Temp Pulse Resp BP Pulse Ox 36.6 C 56 L 20 H 133/72 H 94 12/13/20 03:50 12/13/20 03:50 12/13/20 03:50 12/13/20 03:50 12/13/20 03:50 Oxygen Flow Rate (L/min) 4 Oxygen Delivery Method Nasal Cannula Weight: 122.1 kg Body Mass Index (BMI) 49.2 Intake and Output for Last 24 Hours 12/11/20 12/12/20 12/13/20 23:59 23:59 23:59 Intake Total 1441.25 / 1441.25 471.25 / 471.25 Output Total 400 / 400 200 / 200 Balance 1041.25 / 1041.25 271.25 / 271.25 General: Alert, Oriented x3, Cooperative, No apparent distress, - - Morbidly obese. Speaking in full sentences. HEENT: Atraumatic, PERRLA, EOMI, Normocephalic, - - No scleral icterus or injection noted. Nasal cannula in place. Oral: Moist Mucosa, No Gingival or Mucosal Lesions/ Ulcerations Neck: Supple, No JVD, No Nodes, Trachea Midline Lungs: No rhonchi, No wheeze, No rales, Diminished Cardiovascular: Regular rate, Regular Rhythm, Normal S1, Normal S2, No murmurs, No rub noted, No Gallop Abdomen: Bowel Sounds Present, Soft, Non Tender, Non-Distended, Obese Extremities: No clubbing, No cyanosis, No edema Skin: No rashes, No breakdown Musculoskeletal: No Tenderness to Palpation of Joints or Extremities Lymphatic: No Cervical, Supraclavicular, or Inguinal Adenopathy Neurological: Cranial nerves II-XII grossly intact, Neuro grossly intact, Motor Exam 5/5 strength throughout Psych/Mental Status: Alert and oriented to time, place, person, mood and affect Microbiology Past 72 Hours 12/12/20 12:40 Mucosa - Nose SARS-CoV-2 Antigen (Rapid) - Final SARS-CoV-2 (COVID 19) Laboratory Results 12/12/20 12:10: Procalcitonin 0.05 12/12/20 12:20: WBC 5.1, RBC 4.65, Hgb 12.3, Hct 39.3, MCV 84.5, MCH 26.5 L, MCHC 31.3 L, RDW Std Deviation 46.9 H, RDW Coeff of Erica 15.2 H, Plt Count 236, MPV 10.2, Immature Gran % (Auto) 0.400, Neut % (Auto) 67.3, Lymph % (Auto) 20.2, Taylor % (Auto) 10.1 H, Eos % (Auto) 1.6, Baso % (Auto) 0.4, Absolute Neuts (auto) 3.4, Absolute Lymphs (auto) 1.02, Nucleated RBC % 0 12/12/20 12:20: Sodium 139, Potassium 3.9, Chloride 104, Carbon Dioxide 28.0, Anion Gap 7, BUN 11, Creatinine 0.82, Estim Creat Clear Calc 51.21, Est GFR (MDRD) Af Amer 89, Est GFR (MDRD) Non-Af 74, BUN/Creatinine Ratio 13.4, Glucose 112 H, Calcium 8.4 L, Total Bilirubin 0.40, AST 33, ALT 29, Alkaline Phosphatase 80, Troponin I < 0.015, Total Protein 7.0, Albumin 3.0 L, Globulin 4.0, Albumin/Globulin Ratio 0.8 L 12/12/20 12:20: Lactic Acid 1.3 12/12/20 12:20: D-Dimer Quant (PE/DVT) 0.69 H* 12/12/20 12:20: Alkaline Phosphatase Cancelled, Total Creatine Kinase 59 12/12/20 12:20: B-Natriuretic Peptide 33.2 12/12/20 12:20: PT 13.1, INR 1.1 12/13/20 03:40: WBC 3.3 L, RBC 4.36, Hgb 11.7 L, Hct 37.2, MCV 85.3, MCH 26.8 L, MCHC 31.5 L, RDW Std Deviation 47.0 H, RDW Coeff of Erica 14.9 H, Plt Count 250, MPV 10.2, Immature Gran % (Auto) 0.300, Neut % (Auto) 65.2, Lymph % (Auto) 23.7, Taylor % (Auto) 10.5 H, Eos % (Auto) 0.0, Baso % (Auto) 0.3, Absolute Neuts (auto) 2.1, Absolute Lymphs (auto) 0.77 L, Nucleated RBC % 0 12/13/20 03:40: Sodium 139, Potassium 3.8, Chloride 104, Carbon Dioxide 29.0, Anion Gap 6, BUN 15, Creatinine 0.72, Estim Creat Clear Calc 41.99, Est GFR (MDRD) Af Amer 104, Est GFR (MDRD) Non-Af 86, BUN/Creatinine Ratio 20.9 H, Glucose 143 H, Calcium 8.3 L, Total Bilirubin 0.30, AST 21, ALT 25, Alkaline Phosphatase 72, Total Protein 6.7, Albumin 2.8 L, Globulin 3.9, Albumin/Globulin Ratio 0.7 L Current Medications Acetaminophen (Acetaminophen 325 Mg Tablet) 650 mg PO Q6H PRN PRN PRN Reason: Pain Score 1-10/Temp > 100.7 F Albuterol Sulfate (Albuterol Ih 8.5 Gm (Proair) Inhaler (200 Puffs)) 2 puff INHALATION Q4H PRN PRN PRN Reason: Shortness of breath, wheezing Amlodipine Besylate (Amlodipine 10 Mg Tablet) 10 mg PO DAILY [facility] Aspirin (Aspirin E.C. 81 Mg Tablet) 81 mg PO DAILY@0800 [facility] Atorvastatin Calcium (Atorvastatin Calcium 10 Mg Tablet) 10 mg PO QHS [facility] Last Admin: 12/12/20 21:12 Dose: 10 mg Documented by: Carvedilol (Carvedilol 12.5 Mg Tablet) 12.5 mg PO BID [facility] Last Admin: 12/12/20 21:12 Dose: 12.5 mg Documented by: Dexamethasone (Dexamethasone 4 Mg Tablet) 6 mg PO DAILY@0800 [facility] Enoxaparin Sodium (Enoxaparin 40 Mg/0.4 Ml Syringe) 40 mg SC BID [facility] Last Admin: 12/12/20 21:12 Dose: 40 mg Documented by: Fluoxetine HCl (Fluoxetine 20 Mg Capsule) 40 mg PO DAILY [facility] Hydroxyzine Pamoate (Hydroxyzine Annmarie 25 Mg Capsule) 25 mg PO QHS [facility] Last Admin: 12/12/20 21:13 Dose: 25 mg Documented by: Remdesivir 100 mg/ Sodium (Chloride) 250 mls @ 125 mls/hr IV DAILY [facility]; Protocol Stop: 12/16/20 11:59 Sodium Chloride () 250 mls @ 15 mls/hr IV .[id number] PRN PRN Reason: Saline Flush Sodium Chloride () 250 mls @ 15 mls/hr IV .[id number] PRN PRN Reason: Additional IVPB Infusion Losartan Potassium (Losartan Potassium 25 Mg Tablet) 25 mg PO DAILY [facility] Ondansetron HCl (Ondansetron 4 Mg/2 Ml Vial) 4 mg IV Q8H PRN PRN PRN Reason: NAUSEA/VOMITING Fluticasone/Salmeterol (Fluticasone/Salmeterol 500/50 Inhaler) 1 puff INHALATION BID [facility] Last Admin: 12/12/20 21:12 Dose: 1 puff Documented by: Senna/Docusate Sodium (Senna/Docusate Sodium 1 Tablet) 2 tablet PO BID PRN PRN PRN Reason: Constipation Sodium Chloride (0.9% Saline Lock 10 Ml Syringe) 10 - 40 ml IV UD PRN PRN Reason: SALINE FLUSH Last Admin: 12/12/20 15:16 Dose: 10 ml Documented by: Zolpidem Tartrate (Zolpidem Tartrate 5 Mg Tablet) 5 mg PO QHS PRN PRN PRN Reason: INSOMNIA Clinical Impression(s) from Imaging Studies Chest X-Ray 12/12/20 12:45 IMPRESSION: Patchy bilateral pulmonary infiltrates. Electronically Signed: Joshua Barksdale MD at 13:12 EDT , Service support , Chest CTA 12/12/20 14:45 IMPRESSION: Due to diffuse contrast bolus limited for exclusion of peripheral pulmonary emboli. Negative for large central embolus, embolus in the lobar and segmental branches. Minimal atherosclerotic changes of the aorta without aneurysm or dissection. Normal cardiac size without pericardial effusion. Numerous small to moderate size groundglass pulmonary infiltrates bilaterally with more extensive infiltrate in the right upper lobe. Negative for pleural effusion. These findings are commonly reported with Covid 19 pneumonia. No acute bone findings. No acute findings in the uppermost abdomen. Electronically Signed: La Florian MD at 21:50 EDT , Service support , Medical Necessity - Tobacco Use Smoking Status: Former smoker Assessment/Plan All Active Problems (Last Updated 12/12/20 @ 14:[address] Hiren Card MD) Acute respiratory failure with hypoxia (Acute) Pneumonia due to COVID-19 virus (Acute) RECOMMENDATIONS: 1. Agree with Decadron, Remdesivir and lower dose anticoagulation 2. Inhaled corticosteroids are likely not necessary, but DuoNeb can be used. 3. Wean oxygen as tolerated 4. Monitor blood sugars closely given Decadron 5. BiPAP with sleep IMPRESSIONS: 1. Acute hypoxic respiratory failure secondary to acute bilateral COVID-19 pneumonia Patient with patchy bilateral infiltrates with COVID-19. CTA does show extensive groundglass opacities, but no PE. Agree with Decadron, but inhaled corticosteroids are likely not necessary given systemic steroids. Will continue remdesivir. Patient will need a walking oximetry prior to discharge. Cannot exclude progression of disease as patient is relatively early with reported symptomatology. 2. Type 2 diabetes mellitus Patient on Metformin at baseline, but this is on hold. Patient will need sliding scale insulin, but cannot exclude the need for basal insulin given Decadron therapy. We will continue to monitor closely. 3. History of lung cancer status post left lower lobe lobectomy/JAJA/pulmonary hypertension Relatively preserved lung function on previous PFT. We will continue with therapy as described in problem #1. Patient should be on BiPAP 18/14 centimeters of water with all sleep. Cannot exclude the need for increased FiO2 given acute status. Continuous pulse ox is ordered. 4. Hypertension/anxiety/depression/hyperlipidemia/advanced age/morbid obesity Complicates care, management, recovery and prognosis. Okay to continue with baseline medications. CODE STATUS is unclear at this time. Patient is a full code by default until she can talk with her daughter more extensively. Inpatient E&M: 85126 Subs Hosp L2
[2020-12-13] MEDS: Enoxaparin 40 MG/0.4 ML Syringe SC ×2 (08:32→22:15)
[2020-12-13] MEDS: dexAMETHasone 4 MG Tablet 6 MG PO (08:32)
[2020-12-13] MEDS: amLODIPine 10 MG Tablet PO (08:33)
[2020-12-13] MEDS: Aspirin E.C. 81 MG Tablet PO (08:33)
[2020-12-13] MEDS: Losartan Potassium 25 MG Tablet PO (08:33)
[2020-12-13] MEDS: FLUoxetine 20 MG Capsule 40 MG PO (08:33)
[2020-12-13] MEDS: Carvedilol 12.5 MG Tablet PO ×2 (08:34→22:15)
[2020-12-13] MEDS: 0.9% Saline Lock 10 ML Syringe IV (10:05)
--- NOTE | 2020-12-13 10:40 | CASEMGMT ---
RN NEHAL ASSESSMENT COVID +. Pt in isolation precautions. COVID testing completed 12/11 and 12/12 @ [facility] in [place]. Pt states both results were positive. [employer] to placed call to pt's room for initial transition planning/care coordination assessment. RN NEHAL introduced self and role at [facility].? Pt voices understanding and consents to assessment at this time.? Pt is A/O at this time and answers all questions appropriately.?? Care providers, pharmacy, and demographics verified/updated at this time. PCP: Dr Valenzuela Specialists: Dr Melara--oncology, Dr Zheng-pulmonology [facility]erred [facility]acy: [facility]. Insurance:MCR, MMO Living Will/HPOA:? Has both LW and Healthcare POA, who is her , Jose Enrique. LNOK: , Jose Enrique. Daughter, Almaz Living Arrangements: Lives w/her in one-story home w/6-7 steps to enter. Denies difficulty with stairs. Independent w/ADL'S and IADL'S. Transportation: Pt states drives self and states no transportation concerns at this time.? also drives. DME: ?States has the following DME:? cane and BIPAP from [employer]. Pt also has a walker and rollator available, but does not use them. ? Pt may need Home ambulatory testing completed prior to discharge. If pt qualifies for home O2, her preferred provider is [facility]. Staff gave list of?local providers to give to pt. HHC/SNF: No hx of SNF. Has had [facility] in the past a couple of years ago. Pt denies need for HHC or OP therapy. Pt wishes to return home and states has no concerns with going home at time of discharge.? RN to follow for home oxygen needs and any further discharge planning/needs.? Pt voices no further concerns/needs at this time.? Advised pt to ask for CM if any further questions/concerns/needs arise.? Voices understanding. PLAN: ?Home w/spousal support and discharge plans in place. May need O2 @ d/c. Green sheet placed on chart w/instructions for home O2 set-up if pt qualifies for O2. [facility] is preferred provider. Moiz THORPEN [employer]
[2020-12-13] MEDS: Insulin Lispro 100 UNIT/ML INSULN.PEN SC ×2 (16:50→22:16)
[2020-12-13 17:10] LABS: Bedside Glucose 167 mg/dL (70-110)
[2020-12-13] MEDS: hydrOXYzine PAM 25 MG Capsule PO (22:15)
[2020-12-13] MEDS: Atorvastatin Calcium 10 MG Tablet PO (22:15)
[2020-12-14] VITALS (13 sets, daily range): BP systolic 133–156; BP diastolic 49–63; PULSE 44–54; RESP 12–29; TEMP 36.4–36.6; O2SAT 93–95
[2020-12-14 02:41] LABS: Bedside Glucose 189 mg/dL (70-110)
[2020-12-14 04:26] LABS: Absolute Lymphocyte Count 1.18 X10^3/uL (0.83-4.51); Absolute Neutrophil Count 3.9 X10^3/uL (2.0-7.7); Basophil# 0.01 X10^3/uL; Basophil% 0.2 % (0-1); Hematocrit 36.3 % (37-47); Hemoglobin 11.5 g/dL (12.0-15.0); Lymphocyte # 1.18 X10^3/ul (4.0); Lymphocyte % 20.2 % (19-41); Mean Corp Hgb Conc 31.7 g/dL (32-36); Mean Corpuscular Volume 85.2 fL (81-99); NRBC Flagged by Analyzer 0 % (0-5); Neutrophil # 3.94 X10^3/uL (2.7-7.7); Neutrophil % 67.3 % (47-70); Platelet Count 280 K/mm3 (150-450); RBC Distribution Width CV 15.1 % (11.6-14.6); RBC Distribution Width SD 47.3 fl (35.1-43.9); Red Blood Count 4.26 M/mm3 (4.2-5.4); White Blood Count 5.9 K/mm3 (4.4-11.0)
[2020-12-14 04:45] LABS: ALB/GLOB Ratio 0.7 RATIO (0.9-2.4); AST(SGOT) 19 U/L (15-37); Alanine Aminotransfer ALT/SGPT 23 U/L (13-56); Albumin, Serum 2.8 g/dL (3.2-5.0); Alkaline Phosphatase 68 U/L (45-117); Anion Gap 5 (5-15); BUN 20 mg/dL (7-18); BUN/Creat Ratio 27.3 RATIO (10-20); Calcium,Total 8.4 mg/dL (8.5-10.1); Chloride 106 mmol/L (98-107); Creatinine, Serum 0.73 mg/dL (0.55-1.02); EST Glomerular Filtration Rate 84 mL/min (>60); Est Glom Filt Rate - Afr Amer 101 mL/min (>60); Estimated Creatinine Clearance 41.99 ml/min; Globulin 3.8 g/dL (2.2-4.2); Glucose 135 mg/dL (74-106); Potassium 3.9 mmol/L (3.5-5.1); Protein, Total 6.6 g/dL (6.4-8.2); Sodium Level 141 mmol/L (136-145)
--- NOTE | 2020-12-14 08:11 | PN_ITS ---
Patient Problems: Active and Suspected Problems (Last Updated 12/12/20 @ 14:[address] Hiren Card MD) Acute respiratory failure with hypoxia (Acute) Pneumonia due to COVID-19 virus (Acute) Pulmonary hypertension (Suspected) Subjective: Patient did well overnight. Patient was able to be weaned to 3 L nasal cannula yesterday at rest. Patient was compliant with BiPAP with sleep. Patient still reporting some dyspnea on exertion, but no chest pain - Physical Exam Vitals/I&O's: Vital Signs Temp Pulse Resp BP Pulse Ox 36.6 C 44 L 21 H 143/60 H 93 12/14/20 02:00 12/14/20 04:00 12/14/20 02:00 12/14/20 02:00 12/14/20 02:00 Oxygen Flow Rate (L/min) 3 Oxygen Delivery Method Nasal Cannula Weight: 122.1 kg Body Mass Index (BMI) 49.2 Intake and Output for Last 24 Hours 12/12/20 12/13/20 12/14/20 23:59 23:59 23:59 Intake Total 1441.25 / 1441.25 1447.50 / 1447.50 Output Total 400 / 400 200 / 200 Balance 1041.25 / 1041.25 1247.50 / 1247.50 General: Alert, Oriented x3, Cooperative, No apparent distress, - - Morbidly obese. Speaking in full sentences. HEENT: Atraumatic, PERRLA, EOMI, Normocephalic, - - No scleral icterus or injection noted Oral: Moist Mucosa, No Gingival or Mucosal Lesions/ Ulcerations Neck: Supple, No JVD, No Nodes, Trachea Midline Lungs: No rhonchi, No wheeze, No rales, Diminished, - - Symmetric expansion. Cardiovascular: Regular rate, Regular Rhythm, Normal S1, Normal S2, No murmurs, No rub noted, No Gallop Abdomen: Bowel Sounds Present, Soft, Non Tender, Non-Distended, Obese Extremities: No clubbing, No cyanosis, Edema - Trace lower extremity Skin: No rashes, No breakdown Musculoskeletal: No Tenderness to Palpation of Joints or Extremities Lymphatic: No Cervical, Supraclavicular, or Inguinal Adenopathy Neurological: Cranial nerves II-XII grossly intact, Neuro grossly intact, Motor Exam 5/5 strength throughout Psych/Mental Status: Alert and oriented to time, place, person, mood and affect Microbiology Past 72 Hours 12/12/20 12:40 Mucosa - Nose SARS-CoV-2 Antigen (Rapid) - Final SARS-CoV-2 (COVID 19) Laboratory Results 12/13/20 16:48: POC Glucose 167 H 12/13/20 22:13: POC Glucose 189 H 12/14/20 04:05: WBC 5.9, RBC 4.26, Hgb 11.5 L, Hct 36.3 L, MCV 85.2, MCH 27.0, MCHC 31.7 L, RDW Std Deviation 47.3 H, RDW Coeff of Erica 15.1 H, Plt Count 280, MPV 10.0, Immature Gran % (Auto) 0.300, Neut % (Auto) 67.3, Lymph % (Auto) 20.2, [place] % (Auto) 12.0 H, Eos % (Auto) 0.0, Baso % (Auto) 0.2, Absolute Neuts (auto) 3.9, Absolute Lymphs (auto) 1.18, Nucleated RBC % 0 12/14/20 04:05: Sodium 141, Potassium 3.9, Chloride 106, Carbon Dioxide 30.0, Anion Gap 5, BUN 20 H, Creatinine 0.73, Estim Creat Clear Calc 41.99, Est GFR (MDRD) Af Amer 101, Est GFR (MDRD) Non-Af 84, BUN/Creatinine Ratio 27.3 H, Glucose 135 H, Calcium 8.4 L, Total Bilirubin 0.20, AST 19, ALT 23, Alkaline Phosphatase 68, Total Protein 6.6, Albumin 2.8 L, Globulin 3.8, Albumin/Globulin Ratio 0.7 L Current Medications Acetaminophen (Acetaminophen 325 Mg Tablet) 650 mg PO Q6H PRN PRN PRN Reason: Pain Score 1-10/Temp > 100.7 F Albuterol Sulfate (Albuterol Ih 8.5 Gm (Proair) Inhaler (200 Puffs)) 2 puff INHALATION Q4H PRN PRN PRN Reason: Shortness of breath, wheezing Amlodipine Besylate (Amlodipine 10 Mg Tablet) 10 mg PO DAILY [facility] Last Admin: 12/13/20 08:33 Dose: 10 mg Documented by: Aspirin (Aspirin E.C. 81 Mg Tablet) 81 mg PO DAILY@0800 [facility] Last Admin: 12/13/20 08:33 Dose: 81 mg Documented by: Atorvastatin Calcium (Atorvastatin Calcium 10 Mg Tablet) 10 mg PO QHS [facility] Last Admin: 12/13/20 22:15 Dose: 10 mg Documented by: Carvedilol (Carvedilol 12.5 Mg Tablet) 12.5 mg PO BID [facility] Last Admin: 12/13/20 22:15 Dose: 12.5 mg Documented by: Dexamethasone (Dexamethasone 4 Mg Tablet) 6 mg PO DAILY@0800 [facility] Last Admin: 12/13/20 08:32 Dose: 6 mg Documented by: Dextrose (Dextrose 50%-Water 25 Gm/50 Ml Disp.Syrin) 0 gm IV X1 PRN; Protocol PRN Reason: Hypoglycemia Enoxaparin Sodium (Enoxaparin 40 Mg/0.4 Ml Syringe) 40 mg SC BID [facility] Last Admin: 12/13/20 22:15 Dose: 40 mg Documented by: Fluoxetine HCl (Fluoxetine 20 Mg Capsule) 40 mg PO DAILY [facility] Last Admin: 12/13/20 08:33 Dose: 40 mg Documented by: Glucagon (Glucagon 1 Mg/Ml Syringe) 1 mg IM .X1 PRN PRN Reason: Hypoglycemia Hydroxyzine Pamoate (Hydroxyzine Annmarie 25 Mg Capsule) 25 mg PO QHS [facility] Last Admin: 12/13/20 22:15 Dose: 25 mg Documented by: Remdesivir 100 mg/ Sodium (Chloride) 250 mls @ 125 mls/hr IV DAILY [facility]; Protocol Stop: 12/16/20 11:59 Last Infusion: 12/13/20 12:10 Dose: Infused Documented by: Sodium Chloride () 250 mls @ 15 mls/hr IV .[id number] PRN PRN Reason: Saline Flush Sodium Chloride () 250 mls @ 15 mls/hr IV .[id number] PRN PRN Reason: Additional IVPB Infusion Insulin Human Lispro (Insulin Lispro 100 Unit/Ml Insuln.Pen) 0 unit [facility]; Protocol Last Admin: 12/13/20 22:16 Dose: 1 u Documented by: Losartan Potassium (Losartan Potassium 25 Mg Tablet) 25 mg PO DAILY [facility] Last Admin: 12/13/20 08:33 Dose: 25 mg Documented by: Ondansetron HCl (Ondansetron 4 Mg/2 Ml Vial) 4 mg IV Q8H PRN PRN PRN Reason: NAUSEA/VOMITING Senna/Docusate Sodium (Senna/Docusate Sodium 1 Tablet) 2 tablet PO BID PRN PRN PRN Reason: Constipation Sodium Chloride (0.9% Saline Lock 10 Ml Syringe) 10 - 40 ml IV UD PRN PRN Reason: SALINE FLUSH Last Admin: 12/13/20 10:05 Dose: 10 ml Documented by: Zolpidem Tartrate (Zolpidem Tartrate 5 Mg Tablet) 5 mg PO QHS PRN PRN PRN Reason: INSOMNIA Medical Necessity - Tobacco Use Smoking Status: Former smoker Assessment/Plan All Active Problems (Last Updated 12/12/20 @ 14:[address] Hiren Card MD) Acute respiratory failure with hypoxia (Acute) Pneumonia due to COVID-19 virus (Acute) RECOMMENDATIONS: 1. Agree with continuation of Decadron, Remdesivir and lower dose anticoagulation 2. Inhaled corticosteroids are likely not necessary, but DuoNeb can be used. 3. Wean oxygen as tolerated. Obtain walking oximetry 4. Monitor blood sugars closely given Decadron 5. BiPAP with sleep IMPRESSIONS: 1. Acute hypoxic respiratory failure secondary to acute bilateral COVID-19 pneumonia Patient with patchy bilateral infiltrates with COVID-19. CTA does show extensive groundglass opacities, but no PE. Agree with Decadron, but inhaled corticosteroids are likely not necessary given systemic steroids. Will continue remdesivir. Check walking oximetry today. High clinical suspicion that supplemental oxygen will be necessary discharge. Cannot exclude progression of disease as patient is relatively early with reported symptomatology. 2. Type 2 diabetes mellitus Patient on Metformin at baseline, but this is on hold. Patient will need sliding scale insulin, but cannot exclude the need for basal insulin given Decadron therapy. We will continue to monitor closely. 3. History of lung cancer status post left lower lobe lobe ctomy/JAJA/pulmonary hypertension Relatively preserved lung function on previous PFT. We will continue with therapy as described in problem #1. Patient should be on her baseline BiPAP 1 8/14 centimeters of water with all sleep. Cannot exclude the need for increased FiO2 in BiPAP given acute status. Continuous pulse ox is ordered. 4. Hypertension/anxiety/depression/hyperlipidemia/advanced age/morbid obesity Complicates care, management, recovery and prognosis. Okay to continue with baseline medications. CODE STATUS is unclear at this time. Patient is a full code by default until she can talk with her daughter more extensively. Inpatient E&M: 99890 Subs Hosp L2
[2020-12-14] MEDS: Aspirin E.C. 81 MG Tablet PO (08:32)
[2020-12-14] MEDS: dexAMETHasone 4 MG Tablet 6 MG PO (08:32)
--- NOTE | 2020-12-14 09:12 | PCM.PN.HOSP ---
Patient Problems: Active and Suspected Problems (Last Updated 12/12/20 @ 14:[address] Hiren Card MD) Acute respiratory failure with hypoxia (Acute) Pneumonia due to COVID-19 virus (Acute) Pulmonary hypertension (Suspected) Reason for Visit: Follow-up on acute hypoxic respiratory failure/COVID-19 pneumonia Subjective: Patient seen and examined. She feels improved but drops to 83% on exertion; requires up to 6L of oxygen to recover. No chest pain, or palpitations. No fever or chills. Not on oxygen at home Objective: Physical exam: General: Alert, oriented x3, cooperative, morbidly obese, on 4L of oxygen HEENT: Atraumatic, PERRLA, EOMI, Normocephalic Oral: Moist Mucosa Neck: Supple Lungs: Diminished Cardiovascular: Regular rate, Regular Rhythm, Normal S1, Normal S2, PMI Normal Abdomen: Bowel Sounds Present, Soft, Non Tender, Non-Distended, No Hepato-splenomegaly, Obese Extremities: No bilateral edema Skin: No rashes Lymphatic: No Cervical, Supraclavicular, or Inguinal Adenopathy Neurological: Cranial nerves II-XII grossly intact, Motor Exam 5/5 strength throughout Psych/Mental Status: Normal Affect, Appropriate, Alert and oriented to time, place, person, mood and affect Vitals/I&O's: Vital Signs Temp Pulse Resp BP Pulse Ox 97.6 F L 49 L 16 156/49 H 93 12/14/20 08:29 12/14/20 08:29 12/14/20 08:29 12/14/20 08:29 12/14/20 08:29 Oxygen Flow Rate (L/min) 4 Oxygen Delivery Method Nasal Cannula Weight: 122.1 kg Body Mass Index (BMI) 49.2 Intake and Output for Last 24 Hours 12/12/20 12/13/20 12/14/20 23:59 23:59 23:59 Intake Total 1441.25 / 1441.25 1447.50 / 1447.50 Output Total 400 / 400 200 / 200 Balance 1041.25 / 1041.25 1247.50 / 1247.50 Microbiology Past 72 Hours 12/12/20 12:40 Mucosa - Nose SARS-CoV-2 Antigen (Rapid) - Final SARS-CoV-2 (COVID 19) Laboratory Results 12/13/20 16:48: POC Glucose 167 H 12/13/20 22:13: POC Glucose 189 H 12/14/20 04:05: WBC 5.9, RBC 4.26, Hgb 11.5 L, Hct 36.3 L, MCV 85.2, MCH 27.0, MCHC 31.7 L, RDW Std Deviation 47.3 H, RDW Coeff of Erica 15.1 H, Plt Count 280, MPV 10.0, Immature Gran % (Auto) 0.300, Neut % (Auto) 67.3, Lymph % (Auto) 20.2, [place] % (Auto) 12.0 H, Eos % (Auto) 0.0, Baso % (Auto) 0.2, Absolute Neuts (auto) 3.9, Absolute Lymphs (auto) 1.18, Nucleated RBC % 0 12/14/20 04:05: Sodium 141, Potassium 3.9, Chloride 106, Carbon Dioxide 30.0, Anion Gap 5, BUN 20 H, Creatinine 0.73, Estim Creat Clear Calc 41.99, Est GFR (MDRD) Af Amer 101, Est GFR (MDRD) Non-Af 84, BUN/Creatinine Ratio 27.3 H, Glucose 135 H, Calcium 8.4 L, Total Bilirubin 0.20, AST 19, ALT 23, Alkaline Phosphatase 68, Total Protein 6.6, Albumin 2.8 L, Globulin 3.8, Albumin/Globulin Ratio 0.7 L Current Medications Acetaminophen (Acetaminophen 325 Mg Tablet) 650 mg PO Q6H PRN PRN PRN Reason: Pain Score 1-10/Temp > 100.7 F Albuterol Sulfate (Albuterol Ih 8.5 Gm (Proair) Inhaler (200 Puffs)) 2 puff INHALATION Q4H PRN PRN PRN Reason: Shortness of breath, wheezing Amlodipine Besylate (Amlodipine 10 Mg Tablet) 10 mg PO DAILY [facility] Last Admin: 12/13/20 08:33 Dose: 10 mg Documented by: Aspirin (Aspirin E.C. 81 Mg Tablet) 81 mg PO DAILY@0800 [facility] Last Admin: 12/14/20 08:32 Dose: 81 mg Documented by: Atorvastatin Calcium (Atorvastatin Calcium 10 Mg Tablet) 10 mg PO QHS [facility] Last Admin: 12/13/20 22:15 Dose: 10 mg Documented by: Carvedilol (Carvedilol 12.5 Mg Tablet) 6.25 mg PO BID [facility] Dexamethasone (Dexamethasone 4 Mg Tablet) 6 mg PO DAILY@0800 [facility] Last Admin: 12/14/20 08:32 Dose: 6 mg Documented by: Dextrose (Dextrose 50%-Water 25 Gm/50 Ml Disp.Syrin) 0 gm IV X1 PRN; Protocol PRN Reason: Hypoglycemia Enoxaparin Sodium (Enoxaparin 40 Mg/0.4 Ml Syringe) 40 mg SC BID [facility] Last Admin: 12/13/20 22:15 Dose: 40 mg Documented by: Fluoxetine HCl (Fluoxetine 20 Mg Capsule) 40 mg PO DAILY [facility] Last Admin: 12/13/20 08:33 Dose: 40 mg Documented by: Glucagon (Glucagon 1 Mg/Ml Syringe) 1 mg IM .X1 PRN PRN Reason: Hypoglycemia Hydroxyzine Pamoate (Hydroxyzine Annmarie 25 Mg Capsule) 25 mg PO QHS [facility] Last Admin: 12/13/20 22:15 Dose: 25 mg Documented by: Remdesivir 100 mg/ Sodium (Chloride) 250 mls @ 125 mls/hr IV DAILY [facility]; Protocol Stop: 12/16/20 11:59 Last Infusion: 12/13/20 12:10 Dose: Infused Documented by: Sodium Chloride () 250 mls @ 15 mls/hr IV .[id number] PRN PRN Reason: Saline Flush Sodium Chloride () 250 mls @ 15 mls/hr IV .[id number] PRN PRN Reason: Additional IVPB Infusion Insulin Human Lispro (Insulin Lispro 100 Unit/Ml Insuln.Pen) 0 unit SC ACHS [facility]; Protocol Last Admin: 12/14/20 08:32 Dose: Not Given Documented by: Losartan Potassium (Losartan Potassium 25 Mg Tablet) 100 mg PO DAILY [facility] Ondansetron HCl (Ondansetron 4 Mg/2 Ml Vial) 4 mg IV Q8H PRN PRN PRN Reason: NAUSEA/VOMITING Senna/Docusate Sodium (Senna/Docusate Sodium 1 Tablet) 2 tablet PO BID PRN PRN PRN Reason: Constipation Sodium Chloride (0.9% Saline Lock 10 Ml Syringe) 10 - 40 ml IV UD PRN PRN Reason: SALINE FLUSH Last Admin: 12/13/20 10:05 Dose: 10 ml Documented by: Zolpidem Tartrate (Zolpidem Tartrate 5 Mg Tablet) 5 mg PO QHS PRN PRN PRN Reason: INSOMNIA STROKE Vital Signs/Narrative: Vital Signs Temp Pulse Resp BP Pulse Ox 12/14/20 08:29 97.6 F L 49 L 16 156/49 H 93 Medical Necessity - Tobacco Use Smoking Status: Former smoker Assessment/Plan All Active Problems (Last Updated 12/12/20 @ 14:[address] Hiren Card MD) Acute respiratory failure with hypoxia (Acute) Pneumonia due to COVID-19 virus (Acute) 70 y/o female with multiple PMHx who comes in with SOB and found acute COVID-19 pneumonia with hypoxia. 1. Acute hypoxic respiratory failure secondary to COVID-19 pneumonia, remains on 4L oxygen Continue with breathing treatments, steroids, encourage use of incentive spirometer. Wean off oxygen for SPO2 more than 94% 2. Acute COVID-19 pneumonia with hypoxia, Bilateral extensive infiltrates seen on CTA of the chest Continue on the dexamethasone and Remdesivir No liver abnormalities seen on CMP 3. Bradycardia secondary to beta-padmaja; use of carvedilol Admitting EKG shows NSR, 1st AV padmaja, no ST-T changes Will decrease Carvedilol to 6.25mg po bid. Continue to monitor 4. Elevated D-dimer, CTA of the chest negative for acute DVT 5. Hypertension, controlled, continue on amlodipine, reduced dose of carvedilol, losartan 6. Type II DM, BS are controlled, continue to hold metformin, will continue to monitor with blood glucose checks ACHS 7. Hyperlipidemia, continue on statin 8. Anxiety/depression, stable, continue on Prozac 9. DVT Prophylaxis with Lovenox subcu Inpatient E&M: 28761 Subs Hosp L2
[2020-12-14] MEDS: FLUoxetine 20 MG Capsule 40 MG PO (10:55)
[2020-12-14] MEDS: amLODIPine 10 MG Tablet PO (10:55)
[2020-12-14] MEDS: Losartan Potassium 100 MG Tablet PO (10:55)
[2020-12-14] MEDS: Enoxaparin 40 MG/0.4 ML Syringe SC ×2 (10:56→22:47)
[2020-12-14 12:15] LABS: Bedside Glucose 117 mg/dL (70-110)
[2020-12-14 12:25] LABS: Bedside Glucose 148 mg/dL (70-110)
[2020-12-14] MEDS: Insulin Lispro 100 UNIT/ML INSULN.PEN SC ×2 (16:14→22:47)
[2020-12-14] MEDS: Atorvastatin Calcium 10 MG Tablet PO (22:47)
[2020-12-14] MEDS: hydrOXYzine PAM 25 MG Capsule PO (22:47)
[2020-12-14 23:01] LABS: Bedside Glucose 150 mg/dL (70-110)
[2020-12-15] VITALS (17 sets, daily range): BP systolic 134–170; BP diastolic 53–68; PULSE 42–56; RESP 12–22; TEMP 36.6–36.8; O2SAT 85–96
[2020-12-15 00:46] LABS: Bedside Glucose 196 mg/dL (70-110)
[2020-12-15 04:29] LABS: ALB/GLOB Ratio 0.8 RATIO (0.9-2.4); AST(SGOT) 20 U/L (15-37); Alanine Aminotransfer ALT/SGPT 24 U/L (13-56); Albumin, Serum 2.9 g/dL (3.2-5.0); Alkaline Phosphatase 66 U/L (45-117); Anion Gap 6 (5-15); BUN 19 mg/dL (7-18); BUN/Creat Ratio 26.6 RATIO (10-20); Calcium,Total 8.5 mg/dL (8.5-10.1); Chloride 103 mmol/L (98-107); Creatinine, Serum 0.71 mg/dL (0.55-1.02); EST Glomerular Filtration Rate 86 mL/min (>60); Est Glom Filt Rate - Afr Amer 104 mL/min (>60); Estimated Creatinine Clearance 41.99 ml/min; Globulin 3.7 g/dL (2.2-4.2); Glucose 124 mg/dL (74-106); Potassium 3.8 mmol/L (3.5-5.1); Protein, Total 6.6 g/dL (6.4-8.2); Sodium Level 139 mmol/L (136-145)
--- NOTE | 2020-12-15 05:46 | PN_ITS ---
Patient Problems: Active and Suspected Problems (Last Updated 12/12/20 @ 14:[address] Hiren Card MD) Acute respiratory failure with hypoxia (Acute) Pneumonia due to COVID-19 virus (Acute) Pulmonary hypertension (Suspected) Subjective: The patient was seen and examined at the bedside this morning. Events from the last 24 hours have been reviewed. The patient is currently afebrile, hemodynamically stable and maintaining appropriate oxygen saturations on 4 L/min via nasal cannula. The patient does report overall improvement in her shortness of breath since being admitted to the hospital. Objective: The patient's most recent lab work, culture data and imaging studies have all been personally reviewed. Rapid coronavirus antigen testing was positive on December 12. - Physical Exam Vitals/I&O's: Vital Signs Temp Pulse Resp BP Pulse Ox 97.9 F 44 L 20 H 146/68 H 94 12/15/20 03:41 12/15/20 04:00 12/15/20 03:41 12/15/20 03:41 12/15/20 03:41 Oxygen Flow Rate (L/min) 4 Oxygen Delivery Method Nasal Cannula Weight: 269 lb 2.951 oz Body Mass Index (BMI) 49.2 Intake and Output for Last 24 Hours 12/13/20 12/14/20 12/15/20 23:59 23:59 23:59 Intake Total 1447.50 / 1447.50 610 / 610 Output Total 200 / 200 200 / 200 Balance 1247.50 / 1247.50 410 / 410 General: Alert, Cooperative, No apparent distress, - - Sitting in bedside recliner. HEENT: Atraumatic, PERRLA, Normocephalic Oral: No Gingival or Mucosal Lesions/ Ulcerations Neck: Supple, No Nodes, Trachea Midline Lungs: No rhonchi, No wheeze, No rales, Diminished Cardiovascular: Regular rate, Regular Rhythm Abdomen: Bowel Sounds Present, Soft, Non Tender, Obese Extremities: No clubbing, No cyanosis, No edema Skin: No breakdown Musculoskeletal: No Tenderness to Palpation of Joints or Extremities Lymphatic: No Cervical, Supraclavicular, or Inguinal Adenopathy Neurological: Cranial nerves II-XII grossly intact, Neuro grossly intact Psych/Mental Status: Normal Affect, Appropriate Labs (Last 48 Hours) 12/13/20 12/13/20 12/14/20 16:48 22:13 04:05 WBC 5.9 RBC 4.26 Hgb 11.5 L Hct 36.3 L MCV 85.2 MCH 27.0 MCHC 31.7 L RDW Std Deviation 47.3 H RDW Coeff of Erica 15.1 H Plt Count 280 MPV 10.0 Immature Gran % (Auto) 0.300 Neut % (Auto) 67.3 Lymph % (Auto) 20.2 [place] % (Auto) 12.0 H Eos % (Auto) 0.0 Baso % (Auto) 0.2 Absolute Neuts (auto) 3.9 Absolute Lymphs (auto) 1.18 Nucleated RBC % 0 Sodium Potassium Chloride Carbon Dioxide Anion Gap BUN Creatinine Estim Creat Clear Calc Est GFR (MDRD) Af Amer Est GFR (MDRD) Non-Af BUN/Creatinine Ratio Glucose Calcium Total Bilirubin AST ALT Alkaline Phosphatase Total Protein Albumin Globulin Albumin/Globulin Ratio POC Glucose 167 H 189 H 12/14/20 12/14/20 12/14/20 04:05 08:19 12:19 WBC RBC Hgb Hct MCV MCH MCHC RDW Std Deviation RDW Coeff of Erica Plt Count MPV Immature Gran % (Auto) Neut % (Auto) Lymph % (Auto) [place] % (Auto) Eos % (Auto) Baso % (Auto) Absolute Neuts (auto) Absolute Lymphs (auto) Nucleated RBC % Sodium 141 Potassium 3.9 Chloride 106 Carbon Dioxide 30.0 Anion Gap 5 BUN 20 H Creatinine 0.73 Estim Creat Clear Calc 41.99 Est GFR (MDRD) Af Amer 101 Est GFR (MDRD) Non-Af 84 BUN/Creatinine Ratio 27.3 H Glucose 135 H Calcium 8.4 L Total Bilirubin 0.20 AST 19 ALT 23 Alkaline Phosphatase 68 Total Protein 6.6 Albumin 2.8 L Globulin 3.8 Albumin/Globulin Ratio 0.7 L POC Glucose 117 H 148 H 12/14/20 12/14/20 12/15/20 16:08 22:44 03:40 WBC RBC Hgb Hct MCV MCH MCHC RDW Std Deviation RDW Coeff of Erica Plt Count MPV Immature Gran % (Auto) Neut % (Auto) Lymph % (Auto) [place] % (Auto) Eos % (Auto) Baso % (Auto) Absolute Neuts (auto) Absolute Lymphs (auto) Nucleated RBC % Sodium 139 Potassium 3.8 Chloride 103 Carbon Dioxide 30.0 Anion Gap 6 BUN 19 H Creatinine 0.71 Estim Creat Clear Calc 41.99 Est GFR (MDRD) Af Amer 104 Est GFR (MDRD) Non-Af 86 BUN/Creatinine Ratio 26.6 H Glucose 124 H Calcium 8.5 Total Bilirubin 0.30 AST 20 ALT 24 Alkaline Phosphatase 66 Total Protein 6.6 Albumin 2.9 L Globulin 3.7 Albumin/Globulin Ratio 0.8 L POC Glucose 196 H 150 H Microbiology 12/12/20 12:28 Blood Culture (Wb) - Right Hand Blood Culture - Preliminary No growth in 48 hours. 12/12/20 12:20 Blood Culture (Wb) - Left Hand Blood Culture - Preliminary No growth in 48 hours. Clinical Impression(s) from Imaging Studies Chest X-Ray 12/12/20 12:45 IMPRESSION: Patchy bilateral pulmonary infiltrates. Electronically Signed: Joshua Barksdale MD at 13:12 EDT , Service support , Chest CTA 12/12/20 14:45 IMPRESSION: Due to diffuse contrast bolus limited for exclusion of peripheral pulmonary emboli. Negative for large central embolus, embolus in the lobar and segmental branches. Minimal atherosclerotic changes of the aorta without aneurysm or dissection. Normal cardiac size without pericardial effusion. Numerous small to moderate size groundglass pulmonary infiltrates bilaterally with more extensive infiltrate in the right upper lobe. Negative for pleural effusion. These findings are commonly reported with Covid 19 pneumonia. No acute bone findings. No acute findings in the uppermost abdomen. Electronically Signed: La Florian MD at 21:50 EDT , Service support , Current Medications Acetaminophen (Acetaminophen 325 Mg Tablet) 650 mg PO Q6H PRN PRN PRN Reason: Pain Score 1-10/Temp > 100.7 F Albuterol Sulfate (Albuterol Ih 8.5 Gm (Proair) Inhaler (200 Puffs)) 2 puff INHALATION Q4H PRN PRN PRN Reason: Shortness of breath, wheezing Amlodipine Besylate (Amlodipine 10 Mg Tablet) 10 mg PO DAILY [facility] Last Admin: 12/14/20 10:55 Dose: 10 mg Documented by: Aspirin (Aspirin E.C. 81 Mg Tablet) 81 mg PO DAILY@0800 [facility] Last Admin: 12/14/20 08:32 Dose: 81 mg Documented by: Atorvastatin Calcium (Atorvastatin Calcium 10 Mg Tablet) 10 mg PO QHS [facility] Last Admin: 12/14/20 22:47 Dose: 10 mg Documented by: Carvedilol (Carvedilol 6.25 Mg Tablet) 6.25 mg PO BID [facility] Last Admin: 12/14/20 22:46 Dose: Not Given Documented by: Dexamethasone (Dexamethasone 4 Mg Tablet) 6 mg PO DAILY@0800 [facility] Last Admin: 12/14/20 08:32 Dose: 6 mg Documented by: Dextrose (Dextrose 50%-Water 25 Gm/50 Ml Disp.Syrin) 0 gm IV X1 PRN; Protocol PRN Reason: Hypoglycemia Enoxaparin Sodium (Enoxaparin 40 Mg/0.4 Ml Syringe) 40 mg SC BID [facility] Last Admin: 12/14/20 22:47 Dose: 40 mg Documented by: Fluoxetine HCl (Fluoxetine 20 Mg Capsule) 40 mg PO DAILY [facility] Last Admin: 12/14/20 10:55 Dose: 40 mg Documented by: Glucagon (Glucagon 1 Mg/Ml Syringe) 1 mg IM .X1 PRN PRN Reason: Hypoglycemia Hydroxyzine Pamoate (Hydroxyzine Annmarie 25 Mg Capsule) 25 mg PO QHS [facility] Last Admin: 12/14/20 22:47 Dose: 25 mg Documented by: Remdesivir 100 mg/ Sodium (Chloride) 250 mls @ 125 mls/hr IV DAILY [facility]; Protocol Stop: 12/16/20 11:59 Last Infusion: 12/14/20 13:08 Dose: Infused Documented by: Sodium Chloride () 250 mls @ 15 mls/hr IV .[id number] PRN PRN Reason: Saline Flush Sodium Chloride () 250 mls @ 15 mls/hr IV .[id number] PRN PRN Reason: Additional IVPB Infusion Insulin Human Lispro (Insulin Lispro 100 Unit/Ml Insuln.Pen) 0 unit SC ACHS [facility]; Protocol Last Admin: 12/14/20 22:47 Dose: 1 u Documented by: Losartan Potassium (Losartan Potassium 100 Mg Tablet) 100 mg PO DAILY [facility] Last Admin: 12/14/20 10:55 Dose: 100 mg Documented by: Ondansetron HCl (Ondansetron 4 Mg/2 Ml Vial) 4 mg IV Q8H PRN PRN PRN Reason: NAUSEA/VOMITING Senna/Docusate Sodium (Senna/Docusate Sodium 1 Tablet) 2 tablet PO BID PRN PRN PRN Reason: Constipation Sodium Chloride (0.9% Saline Lock 10 Ml Syringe) 10 - 40 ml IV UD PRN PRN Reason: SALINE FLUSH Last Admin: 12/13/20 10:05 Dose: 10 ml Documented by: Zolpidem Tartrate (Zolpidem Tartrate 5 Mg Tablet) 5 mg PO QHS PRN PRN PRN Reason: INSOMNIA Medical Necessity - Tobacco Use Smoking Status: Former smoker Assessment/Plan All Active Problems (Last Updated 12/12/20 @ 14:[address] Hiren Card MD) Acute respiratory failure with hypoxia (Acute) Pneumonia due to COVID-19 virus (Acute) RECOMMENDATIONS: 1. Continue remdesivir to complete treatment course. Continue to monitor liver and renal function. 2. Continue Decadron to complete 10-day treatment course. 3. Continue to wean supplemental oxygen to maintain saturations at or above 90%. 4. Continue Lovenox as ordered. 5. Encourage incentive spirometer use and mobilize patient as tolerated. IMPRESSIONS: 1. Acute hypoxemic respiratory failure secondary to COVID-19 pneumonia Continue current supportive measures including supplemental oxygen to maintain saturations at or above 90%, along with remdesivir and Decadron to complete rafiq atment courses. Continue to monitor liver and renal function accordingly. Continue prophylactic Lovenox as ordered as well. Encourage incentive spirometer use and mobilize patient as tolerated. I would recommend that the patient follow-up in the pulmonary medicine clinic 2 weeks after her discharge from the hospital. 2. Restrictive airway disease/obstructive sleep apnea Continue nocturnal Pap therapy with a pressure support of 18/14 centimeters of water, per home regimen. 3. 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 Continue home medications as indicated. This note was generated with [employer] software. It may contain incorrect words, spelling, and punctuation that were not noted in checking the note before signing. Inpatient E&M: 12295 Subs Hosp L2
[2020-12-15] MEDS: 0.9% Saline Lock 10 ML Syringe IV (06:50)
[2020-12-15 07:01] LABS: Bedside Glucose 117 mg/dL (70-110)
--- NOTE | 2020-12-15 07:17 | PCM.PN.HOSP ---
Patient Problems: Active and Suspected Problems (Last Updated 12/12/20 @ 14:[address] Hiren Card MD) Acute respiratory failure with hypoxia (Acute) Pneumonia due to COVID-19 virus (Acute) Pulmonary hypertension (Suspected) Reason for Visit: Follow-up for acute hypoxic respiratory failure secondary to COVID-19 pneumonia Objective: No fever or chills. On 4 L of oxygen. Mild shortness of breath on exertion. Denies chest pain or/pressure. No loss of taste or smell. No nausea, vomiting or diarrhea. General: Alert, Oriented x3, Cooperative HEENT: Atraumatic, PERRLA, EOMI, Normocephalic Oral: No Gingival or Mucosal Lesions/ Ulcerations Neck: Supple, No JVD, Negative Carotid Bruits Lungs: Air entry diminished in bilateral lung bases. No crepitation/rhonchi Cardiovascular: Regular rate, Regular Rhythm, Normal S1, Normal S2, No murmurs Abdomen: Bowel Sounds Present, Soft, Non Tender, Non-Distended : No renal angle tenderness. No suprapubic tenderness. Extremities: No edema, Capillary Refill Less than 3 Seconds Skin: No rashes, No breakdown Musculoskeletal: No Tenderness to Palpation of Joints or Extremities Neurological: Cranial nerves II-XII grossly intact, Deep Tendon Reflexes 2+/4 and Symmetrical, Neuro grossly intact Psych/Mental Status: Normal Affect, Appropriate. Vitals/I&O's: Vital Signs Temp Pulse Resp BP Pulse Ox 97.9 F 44 L 20 H 146/68 H 94 12/15/20 03:41 12/15/20 04:00 12/15/20 03:41 12/15/20 03:41 12/15/20 03:41 Oxygen Flow Rate (L/min) 4 Oxygen Delivery Method Nasal Cannula Weight: 269 lb 2.951 oz Body Mass Index (BMI) 49.2 Intake and Output for Last 24 Hours 12/13/20 12/14/20 12/15/20 23:59 23:59 23:59 Intake Total 1447.50 / 1447.50 610 / 610 Output Total 200 / 200 200 / 200 Balance 1247.50 / 1247.50 410 / 410 Microbiology Past 72 Hours 12/12/20 12:28 Blood Culture (Wb) - Right Hand Blood Culture - Preliminary No growth in 48 hours. 12/12/20 12:20 Blood Culture (Wb) - Left Hand Blood Culture - Preliminary No growth in 48 hours. 12/12/20 12:40 Mucosa - Nose SARS-CoV-2 Antigen (Rapid) - Final SARS-CoV-2 (COVID 19) Laboratory Results 12/14/20 08:19: POC Glucose 117 H 12/14/20 12:19: POC Glucose 148 H 12/14/20 16:08: POC Glucose 196 H 12/14/20 22:44: POC Glucose 150 H 12/15/20 03:40: Sodium 139, Potassium 3.8, Chloride 103, Carbon Dioxide 30.0, Anion Gap 6, BUN 19 H, Creatinine 0.71, Estim Creat Clear Calc 41.99, Est GFR (MDRD) Af Amer 104, Est GFR (MDRD) Non-Af 86, BUN/Creatinine Ratio 26.6 H, Glucose 124 H, Calcium 8.5, Total Bilirubin 0.30, AST 20, ALT 24, Alkaline Phosphatase 66, Total Protein 6.6, Albumin 2.9 L, Globulin 3.7, Albumin/Globulin Ratio 0.8 L 12/15/20 06:48: POC Glucose 117 H Current Medications Acetaminophen (Acetaminophen 325 Mg Tablet) 650 mg PO Q6H PRN PRN PRN Reason: Pain Score 1-10/Temp > 100.7 F Albuterol Sulfate (Albuterol Ih 8.5 Gm (Proair) Inhaler (200 Puffs)) 2 puff INHALATION Q4H PRN PRN PRN Reason: Shortness of breath, wheezing Amlodipine Besylate (Amlodipine 10 Mg Tablet) 10 mg PO DAILY [facility] Last Admin: 12/14/20 10:55 Dose: 10 mg Documented by: Aspirin (Aspirin E.C. 81 Mg Tablet) 81 mg PO DAILY@0800 [facility] Last Admin: 12/14/20 08:32 Dose: 81 mg Documented by: Atorvastatin Calcium (Atorvastatin Calcium 10 Mg Tablet) 10 mg PO QHS [facility] Last Admin: 12/14/20 22:47 Dose: 10 mg Documented by: Carvedilol (Carvedilol 6.25 Mg Tablet) 6.25 mg PO BID [facility] Last Admin: 12/14/20 22:46 Dose: Not Given Documented by: Dexamethasone (Dexamethasone 4 Mg Tablet) 6 mg PO DAILY@0800 [facility] Last Admin: 12/14/20 08:32 Dose: 6 mg Documented by: Dextrose (Dextrose 50%-Water 25 Gm/50 Ml Disp.Syrin) 0 gm IV X1 PRN; Protocol PRN Reason: Hypoglycemia Enoxaparin Sodium (Enoxaparin 40 Mg/0.4 Ml Syringe) 40 mg SC BID [facility] Last Admin: 12/14/20 22:47 Dose: 40 mg Documented by: Fluoxetine HCl (Fluoxetine 20 Mg Capsule) 40 mg PO DAILY [facility] Last Admin: 12/14/20 10:55 Dose: 40 mg Documented by: Glucagon (Glucagon 1 Mg/Ml Syringe) 1 mg IM .X1 PRN PRN Reason: Hypoglycemia Hydroxyzine Pamoate (Hydroxyzine Annmarie 25 Mg Capsule) 25 mg PO QHS [facility] Last Admin: 12/14/20 22:47 Dose: 25 mg Documented by: Remdesivir 100 mg/ Sodium (Chloride) 250 mls @ 125 mls/hr IV DAILY [facility]; Protocol Stop: 12/16/20 11:59 Last Infusion: 12/14/20 13:08 Dose: Infused Documented by: Sodium Chloride () 250 mls @ 15 mls/hr IV .[id number] PRN PRN Reason: Saline Flush Sodium Chloride () 250 mls @ 15 mls/hr IV .[id number] PRN PRN Reason: Additional IVPB Infusion Insulin Human Lispro (Insulin Lispro 100 Unit/Ml Insuln.Pen) 0 unit SC ACHS [facility]; Protocol Last Admin: 12/15/20 06:49 Dose: Not Given Documented by: Losartan Potassium (Losartan Potassium 100 Mg Tablet) 100 mg PO DAILY [facility] Last Admin: 12/14/20 10:55 Dose: 100 mg Documented by: Ondansetron HCl (Ondansetron 4 Mg/2 Ml Vial) 4 mg IV Q8H PRN PRN PRN Reason: NAUSEA/VOMITING Senna/Docusate Sodium (Senna/Docusate Sodium 1 Tablet) 2 tablet PO BID PRN PRN PRN Reason: Constipation Sodium Chloride (0.9% Saline Lock 10 Ml Syringe) 10 - 40 ml IV UD PRN PRN Reason: SALINE FLUSH Last Admin: 12/15/20 06:50 Dose: 10 ml Documented by: Zolpidem Tartrate (Zolpidem Tartrate 5 Mg Tablet) 5 mg PO QHS PRN PRN PRN Reason: INSOMNIA STROKE Vital Signs/Narrative: Vital Signs Temp Pulse Resp BP Pulse Ox 12/15/20 04:00 44 L 12/15/20 03:41 97.9 F 52 L 20 H 146/68 H 94 Medical Necessity - Tobacco Use Smoking Status: Former smoker Assessment/Plan All Active Problems (Last Updated 12/12/20 @ 14:[address] Hiren Card MD) Acute respiratory failure with hypoxia (Acute) Pneumonia due to COVID-19 virus (Acute) 70 y/o female with multiple PMHx who comes in with SOB and found acute COVID-19 pneumonia with hypoxia. 1. Acute hypoxic respiratory failure secondary to COVID-19 pneumonia, remains on 4L oxygen. Patient symptoms of shortness of breath, cough has improved but he still gets dyspnea on exertion. Continue remdesivir and Decadron. Continue with breathing treatments, encourage use of incentive spirometer. Wean off oxygen for SPO2 more than 94%. Denies anosmia, dysgeusia, nausea, vomiting or diarrhea. She she smoked for about 2 years in her teenage. 2. 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 CTA chest shows bilateral extensive infiltrate. Liver chemistry shows total protein 6.6, albumin 2.9. Aminotransaminases in normal limit Bilateral extensive infiltrates seen on CTA of the chest 3. Bradycardia secondary to beta-padmaja; use of carvedilol: Patient does not have symptoms related to bradycardia. Heart rate in 50s. Carvedilol 6.25 mg twice daily. Admitting EKG shows NSR, 1st AV padmaja, no ST-T changes 4. Elevated D-dimer, CTA of the chest negative for acute large central embolus, lobar and segmental branches: Continue enoxaparin 40 mg twice daily 5. Hypertension, controlled, continue on amlodipine, reduced dose of carvedilol, losartan 6. Type II DM, BS are controlled, continue to hold metformin, continue blood glucose checks ACHS 7. Hyperlipidemia, continue on statin 8. Anxiety/depression, stable, continue on Prozac 9. DVT Prophylaxis with Lovenox subcu She states her does not have symptoms. Inpatient E&M: 05720 Subs Hosp L2
[2020-12-15] MEDS: Losartan Potassium 100 MG Tablet PO (08:16)
[2020-12-15] MEDS: amLODIPine 10 MG Tablet PO (08:16)
[2020-12-15] MEDS: dexAMETHasone 4 MG Tablet 6 MG PO (08:17)
[2020-12-15] MEDS: Aspirin E.C. 81 MG Tablet PO (08:17)
[2020-12-15] MEDS: FLUoxetine 20 MG Capsule 40 MG PO (09:59)
[2020-12-15] MEDS: Enoxaparin 40 MG/0.4 ML Syringe SC ×2 (09:59→20:15)
[2020-12-15 12:15] LABS: Bedside Glucose 151 mg/dL (70-110)
[2020-12-15 16:56] LABS: Bedside Glucose 228 mg/dL (70-110)
[2020-12-15] MEDS: Insulin Lispro 100 UNIT/ML INSULN.PEN SC ×2 (17:03→20:16)
[2020-12-15] MEDS: hydrOXYzine PAM 25 MG Capsule PO (20:15)
[2020-12-15] MEDS: Atorvastatin Calcium 10 MG Tablet PO (20:15)
[2020-12-15 20:31] LABS: Bedside Glucose 218 mg/dL (70-110)
[2020-12-16] VITALS (8 sets, daily range): BP systolic 145–159; BP diastolic 59–76; PULSE 40–59; RESP 12–22; TEMP 36.8–36.9; O2SAT 86–97
--- NOTE | 2020-12-16 05:48 | PN_ITS ---
Patient Problems: Active and Suspected Problems (Last Updated 12/12/20 @ 14:[address] Hiren Card MD) Acute respiratory failure with hypoxia (Acute) Pneumonia due to COVID-19 virus (Acute) Pulmonary hypertension (Suspected) Subjective: The patient was seen and examined at the bedside this morning. Events from the last 24 hours have been reviewed. The patient is currently afebrile, hemodynamically stable and maintaining appropriate oxygen saturations on 2 L/min via nasal cannula. A check of the patient's pulse oximetry later this morning indicated that the patient required 4 L/min of oxygen with exertion. She is otherwise feeling well. She remains on remdesivir and Decadron. Objective: The patient's most recent lab work, culture data and imaging studies have all been personally reviewed. Rapid coronavirus antigen testing was positive on December 12. - Physical Exam Vitals/I&O's: Vital Signs Temp Pulse Resp BP Pulse Ox 98.4 F 56 L 22 H 159/76 H 96 12/16/20 02:03 12/16/20 04:55 12/16/20 04:55 12/16/20 02:03 12/16/20 04:55 Oxygen Flow Rate (L/min) [ 5 AMBULATING with Oxygen #3] Oxygen Flow Rate (L/min) [ 3 AMBULATING with Oxygen #2] Oxygen Flow Rate (L/min) [ 2 AMBULATING with Oxygen #1] Oxygen Flow Rate (L/min) [ 0 AMBULATING on Room Air] Oxygen Flow Rate (L/min) 2 Oxygen Delivery Method Bi-pap Weight: 269 lb 2.951 oz Body Mass Index (BMI) 49.2 Intake and Output for Last 24 Hours 12/14/20 12/15/20 12/16/20 23:59 23:59 23:59 Intake Total 610 / 610 750 / 750 Output Total 200 / 200 Balance 410 / 410 750 / 750 General: Alert, Cooperative, No apparent distress HEENT: Atraumatic, PERRLA, Normocephalic Oral: Moist Mucosa, No Gingival or Mucosal Lesions/ Ulcerations Neck: Supple, No Nodes, Trachea Midline Lungs: No rhonchi, No wheeze, No rales, Diminished Cardiovascular: Regular rate, Regular Rhythm Abdomen: Bowel Sounds Present, Soft, Non Tender, Obese Extremities: No clubbing, No cyanosis, No edema Skin: No breakdown Musculoskeletal: No Tenderness to Palpation of Joints or Extremities, No Muscle Wasting Lymphatic: No Cervical, Supraclavicular, or Inguinal Adenopathy Neurological: Cranial nerves II-XII grossly intact, Neuro grossly intact Psych/Mental Status: Normal Affect, Appropriate Labs (Last 48 Hours) 12/14/20 12/14/20 12/14/20 08:19 12:19 16:08 Sodium Potassium Chloride Carbon Dioxide Anion Gap BUN Creatinine Estim Creat Clear Calc Est GFR (MDRD) Af Amer Est GFR (MDRD) Non-Af BUN/Creatinine Ratio Glucose Calcium Total Bilirubin AST ALT Alkaline Phosphatase Total Protein Albumin Globulin Albumin/Globulin Ratio POC Glucose 117 H 148 H 196 H 12/14/20 12/15/20 12/15/20 22:44 03:40 06:48 Sodium 139 Potassium 3.8 Chloride 103 Carbon Dioxide 30.0 Anion Gap 6 BUN 19 H Creatinine 0.71 Estim Creat Clear Calc 41.99 Est GFR (MDRD) Af Amer 104 Est GFR (MDRD) Non-Af 86 BUN/Creatinine Ratio 26.6 H Glucose 124 H Calcium 8.5 Total Bilirubin 0.30 AST 20 ALT 24 Alkaline Phosphatase 66 Total Protein 6.6 Albumin 2.9 L Globulin 3.7 Albumin/Globulin Ratio 0.8 L POC Glucose 150 H 117 H 12/15/20 12/15/20 12/15/20 12:11 16:46 20:15 Sodium Potassium Chloride Carbon Dioxide Anion Gap BUN Creatinine Estim Creat Clear Calc Est GFR (MDRD) Af Amer Est GFR (MDRD) Non-Af BUN/Creatinine Ratio Glucose Calcium Total Bilirubin AST ALT Alkaline Phosphatase Total Protein Albumin Globulin Albumin/Globulin Ratio POC Glucose 151 H 228 H 218 H Microbiology 12/12/20 12:28 Blood Culture (Wb) - Right Hand Blood Culture - Preliminary No growth in 48 hours. 12/12/20 12:20 Blood Culture (Wb) - Left Hand Blood Culture - Preliminary No growth in 48 hours. Clinical Impression(s) from Imaging Studies Chest X-Ray 12/12/20 12:45 IMPRESSION: Patchy bilateral pulmonary infiltrates. Electronically Signed: Joshua Barksdale MD at 13:12 EDT , Service support , Chest CTA 12/12/20 14:45 IMPRESSION: Due to diffuse contrast bolus limited for exclusion of peripheral pulmonary emboli. Negative for large central embolus, embolus in the lobar and segmental branches. Minimal atherosclerotic changes of the aorta without aneurysm or dissection. Normal cardiac size without pericardial effusion. Numerous small to moderate size groundglass pulmonary infiltrates bilaterally with more extensive infiltrate in the right upper lobe. Negative for pleural effusion. These findings are commonly reported with Covid 19 pneumonia. No acute bone findings. No acute findings in the uppermost abdomen. Electronically Signed: La Florian MD at 21:50 EDT , Service support , Current Medications Acetaminophen (Acetaminophen 325 Mg Tablet) 650 mg PO Q6H PRN PRN PRN Reason: Pain Score 1-10/Temp > 100.7 F Albuterol Sulfate (Albuterol Ih 8.5 Gm (Proair) Inhaler (200 Puffs)) 2 puff INHALATION Q4H PRN PRN PRN Reason: Shortness of breath, wheezing Amlodipine Besylate (Amlodipine 10 Mg Tablet) 10 mg PO DAILY [facility] Last Admin: 12/15/20 08:16 Dose: 10 mg Documented by: Aspirin (Aspirin E.C. 81 Mg Tablet) 81 mg PO DAILY@0800 [facility] Last Admin: 12/15/20 08:17 Dose: 81 mg Documented by: Atorvastatin Calcium (Atorvastatin Calcium 10 Mg Tablet) 10 mg PO QHS [facility] Last Admin: 12/15/20 20:15 Dose: 10 mg Documented by: Carvedilol (Carvedilol 6.25 Mg Tablet) 6.25 mg PO BID [facility] Last Admin: 12/15/20 21:01 Dose: Not Given Documented by: Dexamethasone (Dexamethasone 4 Mg Tablet) 6 mg PO DAILY@0800 [facility] Last Admin: 12/15/20 08:17 Dose: 6 mg Documented by: Dextrose (Dextrose 50%-Water 25 Gm/50 Ml Disp.Syrin) 0 gm IV X1 PRN; Protocol PRN Reason: Hypoglycemia Enoxaparin Sodium (Enoxaparin 40 Mg/0.4 Ml Syringe) 40 mg SC BID [facility] Last Admin: 12/15/20 20:15 Dose: 40 mg Documented by: Fluoxetine HCl (Fluoxetine 20 Mg Capsule) 40 mg PO DAILY [facility] Last Admin: 12/15/20 09:59 Dose: 40 mg Documented by: Glucagon (Glucagon 1 Mg/Ml Syringe) 1 mg IM .X1 PRN PRN Reason: Hypoglycemia Hydroxyzine Pamoate (Hydroxyzine Annmarie 25 Mg Capsule) 25 mg PO QHS [facility] Last Admin: 12/15/20 20:15 Dose: 25 mg Documented by: Remdesivir 100 mg/ Sodium (Chloride) 250 mls @ 125 mls/hr IV DAILY [facility]; Protocol Stop: 12/16/20 11:59 Last Infusion: 12/15/20 12:38 Dose: Infused Documented by: Sodium Chloride () 250 mls @ 15 mls/hr IV .[id number] PRN PRN Reason: Saline Flush Sodium Chloride () 250 mls @ 15 mls/hr IV .[id number] PRN PRN Reason: Additional IVPB Infusion Insulin Human Lispro (Insulin Lispro 100 Unit/Ml Insuln.Pen) 0 unit SC ACHS [facility]; Protocol Last Admin: 12/15/20 20:16 Dose: 1 u Documented by: Losartan Potassium (Losartan Potassium 100 Mg Tablet) 100 mg PO DAILY [facility] Last Admin: 12/15/20 08:16 Dose: 100 mg Documented by: Ondansetron HCl (Ondansetron 4 Mg/2 Ml Vial) 4 mg IV Q8H PRN PRN PRN Reason: NAUSEA/VOMITING Senna/Docusate Sodium (Senna/Docusate Sodium 1 Tablet) 2 tablet PO BID PRN PRN PRN Reason: Constipation Sodium Chloride (0.9% Saline Lock 10 Ml Syringe) 10 - 40 ml IV UD PRN PRN Reason: SALINE FLUSH Last Admin: 12/15/20 06:50 Dose: 10 ml Documented by: Zolpidem Tartrate (Zolpidem Tartrate 5 Mg Tablet) 5 mg PO QHS PRN PRN PRN Reason: INSOMNIA Medical Necessity - Tobacco Use Smoking Status: Former smoker Assessment/Plan All Active Problems (Last Updated 12/12/20 @ 14:[address] Hiren Card MD) Acute respiratory failure with hypoxia (Acute) Pneumonia due to COVID-19 virus (Acute) RECOMMENDATIONS: 1. Continue remdesivir to complete treatment course. Continue to monitor liver and renal function. 2. Continue Decadron to complete 10-day treatment course. 3. Continue to wean supplemental oxygen to maintain saturations at or above 90%. 4. Continue Lovenox as ordered. 5. Encourage incentive spirometer use and mobilize patient as tolerated. 6. Follow-up in the pulmonary medicine clinic 2 weeks after discharge. Supplemental oxygen need can be reassessed at that time as well. IMPRESSIONS: 1. Acute hypoxemic respiratory failure secondary to COVID-19 pneumonia Continue current supportive measures including supplemental oxygen to maintain saturations at or above 90%, along with remdesivir and Decadron to complete treatment courses. Continue to monitor liver and renal function accordingly. Continue prophylactic Lovenox as ordered as well. Encourage incentive spirometer use and mobilize patient as tolerated. I would recommend that the patient follow-up in the pulmonary medicine clinic 2 weeks after her discharge from the hospital. 2. Restrictive airway disease/obstructive sleep apnea Continue nocturnal Pap therapy with a pressure support of 18/14 centimeters of water, per home regimen. 3. 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 Continue home medications as indicated. This note was generated with [employer] dictation software. It may contain incorrect words, spelling, and punctuation that were not noted in checking the note before signing. Inpatient E&M: 29698 Subs Hosp L2
--- NOTE | 2020-12-16 07:09 | PN_ITS ---
Patient Problems: Active and Suspected Problems (Last Updated 12/12/20 @ 14:[address] Hiren Card MD) Acute respiratory failure with hypoxia (Acute) Pneumonia due to COVID-19 virus (Acute) Pulmonary hypertension (Suspected) Objective: Patient on BiPAP 40% FiO2 at night. Vitals/I&O's: Vital Signs Temp Pulse Resp BP Pulse Ox 98.4 F 56 L 22 H 159/76 H 96 12/16/20 02:03 12/16/20 04:55 12/16/20 04:55 12/16/20 02:03 12/16/20 04:55 Oxygen Flow Rate (L/min) [ 5 AMBULATING with Oxygen #3] Oxygen Flow Rate (L/min) [ 3 AMBULATING with Oxygen #2] Oxygen Flow Rate (L/min) [ 2 AMBULATING with Oxygen #1] Oxygen Flow Rate (L/min) [ 0 AMBULATING on Room Air] Oxygen Flow Rate (L/min) 2 Oxygen Delivery Method Bi-pap Weight: 269 lb 2.951 oz Body Mass Index (BMI) 49.2 Intake and Output for Last 24 Hours 12/14/20 12/15/20 12/16/20 23:59 23:59 23:59 Intake Total 610 / 610 750 / 750 Output Total 200 / 200 Balance 410 / 410 750 / 750 Microbiology Past 72 Hours 12/12/20 12:28 Blood Culture (Wb) - Right Hand Blood Culture - Preliminary No growth in 48 hours. 12/12/20 12:20 Blood Culture (Wb) - Left Hand Blood Culture - Preliminary No growth in 48 hours. Laboratory Results 12/15/20 12:11: POC Glucose 151 H 12/15/20 16:46: POC Glucose 228 H 12/15/20 20:15: POC Glucose 218 H Current Medications Acetaminophen (Acetaminophen 325 Mg Tablet) 650 mg PO Q6H PRN PRN PRN Reason: Pain Score 1-10/Temp > 100.7 F Albuterol Sulfate (Albuterol Ih 8.5 Gm (Proair) Inhaler (200 Puffs)) 2 puff INHALATION Q4H PRN PRN PRN Reason: Shortness of breath, wheezing Amlodipine Besylate (Amlodipine 10 Mg Tablet) 10 mg PO DAILY [facility] Last Admin: 12/15/20 08:16 Dose: 10 mg Documented by: Aspirin (Aspirin E.C. 81 Mg Tablet) 81 mg PO DAILY@0800 [facility] Last Admin: 12/15/20 08:17 Dose: 81 mg Documented by: Atorvastatin Calcium (Atorvastatin Calcium 10 Mg Tablet) 10 mg PO QHS [facility] Last Admin: 12/15/20 20:15 Dose: 10 mg Documented by: Carvedilol (Carvedilol 6.25 Mg Tablet) 6.25 mg PO BID [facility] Last Admin: 12/15/20 21:01 Dose: Not Given Documented by: Dexamethasone (Dexamethasone 4 Mg Tablet) 6 mg PO DAILY@0800 [facility] Last Admin: 12/15/20 08:17 Dose: 6 mg Documented by: Dextrose (Dextrose 50%-Water 25 Gm/50 Ml Disp.Syrin) 0 gm IV X1 PRN; Protocol PRN Reason: Hypoglycemia Enoxaparin Sodium (Enoxaparin 40 Mg/0.4 Ml Syringe) 40 mg SC BID [facility] Last Admin: 12/15/20 20:15 Dose: 40 mg Documented by: Fluoxetine HCl (Fluoxetine 20 Mg Capsule) 40 mg PO DAILY [facility] Last Admin: 12/15/20 09:59 Dose: 40 mg Documented by: Glucagon (Glucagon 1 Mg/Ml Syringe) 1 mg IM .X1 PRN PRN Reason: Hypoglycemia Hydroxyzine Pamoate (Hydroxyzine Annmarie 25 Mg Capsule) 25 mg PO QHS [facility] Last Admin: 12/15/20 20:15 Dose: 25 mg Documented by: Remdesivir 100 mg/ Sodium (Chloride) 250 mls @ 125 mls/hr IV DAILY [facility]; Protocol Stop: 12/16/20 11:59 Last Infusion: 12/15/20 12:38 Dose: Infused Documented by: Sodium Chloride () 250 mls @ 15 mls/hr IV .[id number] PRN PRN Reason: Saline Flush Sodium Chloride () 250 mls @ 15 mls/hr IV .[id number] PRN PRN Reason: Additional IVPB Infusion Insulin Human Lispro (Insulin Lispro 100 Unit/Ml Insuln.Pen) 0 unit SC ACHS [facility]; Protocol Last Admin: 12/15/20 20:16 Dose: 1 u Documented by: Losartan Potassium (Losartan Potassium 100 Mg Tablet) 100 mg PO DAILY [facility] Last Admin: 12/15/20 08:16 Dose: 100 mg Documented by: Ondansetron HCl (Ondansetron 4 Mg/2 Ml Vial) 4 mg IV Q8H PRN PRN PRN Reason: NAUSEA/VOMITING Senna/Docusate Sodium (Senna/Docusate Sodium 1 Tablet) 2 tablet PO BID PRN PRN PRN Reason: Constipation Sodium Chloride (0.9% Saline Lock 10 Ml Syringe) 10 - 40 ml IV UD PRN PRN Reason: SALINE FLUSH Last Admin: 12/15/20 06:50 Dose: 10 ml Documented by: Zolpidem Tartrate (Zolpidem Tartrate 5 Mg Tablet) 5 mg PO QHS PRN PRN PRN Reason: INSOMNIA STROKE Vital Signs/Narrative: Vital Signs Pulse Resp Pulse Ox 12/16/20 04:55 56 L 22 H 96 Medical Necessity - Tobacco Use Smoking Status: Former smoker Assessment/Plan All Active Problems (Last Updated 12/12/20 @ 14:[address] Hiren Card MD) Acute respiratory failure with hypoxia (Acute) Pneumonia due to COVID-19 virus (Acute)
[2020-12-16] MEDS: Losartan Potassium 100 MG Tablet PO (08:44)
[2020-12-16] MEDS: Aspirin E.C. 81 MG Tablet PO (08:44)
[2020-12-16] MEDS: 0.9% Saline Lock 10 ML Syringe IV (08:44)
[2020-12-16] MEDS: dexAMETHasone 4 MG Tablet 6 MG PO (08:44)
[2020-12-16] MEDS: Enoxaparin 40 MG/0.4 ML Syringe SC (08:44)
[2020-12-16] MEDS: FLUoxetine 20 MG Capsule 40 MG PO (08:44)
[2020-12-16] MEDS: amLODIPine 10 MG Tablet PO (08:44)
[2020-12-16 09:06] LABS: Bedside Glucose 95 mg/dL (70-110)
[2020-12-16 09:18] LABS: ALB/GLOB Ratio 0.7 RATIO (0.9-2.4); AST(SGOT) 19 U/L (15-37); Alanine Aminotransfer ALT/SGPT 27 U/L (13-56); Albumin, Serum 2.8 g/dL (3.2-5.0); Alkaline Phosphatase 67 U/L (45-117); Anion Gap 5 (5-15); BUN 20 mg/dL (7-18); BUN/Creat Ratio 28.2 RATIO (10-20); Calcium,Total 8.6 mg/dL (8.5-10.1); Chloride 103 mmol/L (98-107); Creatinine, Serum 0.71 mg/dL (0.55-1.02); EST Glomerular Filtration Rate 87 mL/min (>60); Est Glom Filt Rate - Afr Amer 105 mL/min (>60); Estimated Creatinine Clearance 41.99 ml/min; Globulin 3.9 g/dL (2.2-4.2); Glucose 91 mg/dL (74-106); Potassium 3.5 mmol/L (3.5-5.1); Protein, Total 6.7 g/dL (6.4-8.2); Sodium Level 139 mmol/L (136-145)
--- NOTE | 2020-12-16 11:30 | PCM.DC ---
- Discharge Diagnoses Current Active Problems: Current Active and Chronic Problems (Last Updated 12/12/20 @ 14:[address] Hiren Card MD) Acute respiratory failure with hypoxia (Acute) Pneumonia due to COVID-19 virus (Acute) Bronchiectasis (Chronic) History of lung surgery (Chronic 12/2016) Wedge resection of LLL JAJA treated with BiPAP (Chronic) Neuropathy (Chronic) Fibromyalgia (Chronic) Osteopenia (Chronic) Essential hypertension (Chronic) History of lung cancer (Chronic) Status post left lower lobe pneumectomy. History of stroke (Chronic) Hyperlipidemia (Chronic) Anxiety (Chronic) Depression (Chronic) Type 2 diabetes mellitus (Chronic) You will use the following diet at home:: Calorie/Carbohydrate Controlled (specify 1200, 1400, etc) - 1800-calorie ADA diet, Cardiac Your food should be the consistency of: Regular Discharge Activity: May Not Drive Weight Bearing Status: Weight bearing as tolerated Call your doctor if you observe: Fever of 101 or Higher, Numbness or Tingling, Change in Color, Inability to urinate, Inability to have a bowel movement, Shortness of breath, Dizziness, Fainting spells, Swelling in the ankles, Chest pain, Prolonged hiccoughing, Increased palpitations (irregular heartbeat), Calf discomfort, Uncontrolled pain Additional Instructions: Patient discharged on home 4 L of oxygen on exertion Patient is ambulatory in home and in the community and requires home oxygen with portability on exertion. Allergies/Adverse Reactions: Allergies lisinopril Allergy (Intermediate, Verified 12/12/20 11:16) cough Medications to take at Discharge Amlodipine [Norvasc] 10 mg PO DAILY 02/22/18 Fluoxetine HCl 40 mg PO DAILY 02/22/18 Hydroxyzine HCl 25 mg PO QHS 02/22/18 Ipratropium/Albuterol Sulfate [Duoneb] 3 ml INHALATION Q6H.RT PRN #30 ampul.neb 06/12/19 calcium carbonate 500 mg (1,250 mg)-vitamin D3 200 unit tablet 1 tab PO DAILY 07/11/19 Albuterol Sulfate [Albuterol Sulfate HFA] 2 puff INHALATION Q4H PRN 12/12/20 Alendronate Sodium [Fosamax] 70 mg PO NICKERSON 12/12/20 Aspirin E.C. [Ecotrin] 81 mg PO DAILY@0800 12/12/20 Metformin HCl [Metformin HCl ER] 1,000 mg PO BID 12/12/20 Simvastatin 20 mg PO QHS 12/12/20 Apixaban [Eliquis] 2.5 mg PO BID #30 tablet 12/16/20 Carvedilol 6.25 mg PO BID #60 tablet 12/16/20 Dexamethasone [Decadron] 6 mg PO DAILY@0800 #8 tablet 12/16/20 Losartan Potassium [Cozaar] 100 mg PO DAILY #30 tablet 12/16/20 The following prescriptions were given: Losartan Potassium [Cozaar] 100 mg PO DAILY #30 tablet Transmission Status: Pending to [id number] Dexamethasone [Decadron] 6 mg PO DAILY@0800 #8 tablet Transmission Status: Pending to [id number] Apixaban [Eliquis] 2.5 mg PO BID #30 tablet Transmission Status: Pending to [id number] Primary Care Physician: Les Valenzuela MD [Primary Care Provider] - Please follow up with your Primary Care Physician in: In 2 weeks Test Results: Test results from this visit will be discussed in further detail at your follow-up appointment, if applicable. Please Follow Up With: Patrick Zheng, When: In 2 weeks with Radha Kaiser NP
--- NOTE | 2020-12-16 11:48 | DS.PCM_ITS ---
Discharge Date and Diagnosis - Problem List Patient Problems: Active and Suspected Problems (Last Updated 12/12/20 @ 14:[address] Hiren Card MD) Acute respiratory failure with hypoxia (Acute) Pneumonia due to COVID-19 virus (Acute) Pulmonary hypertension (Suspected) Date of Admission: 12/12/20 Date of Discharge: 12/16/20 - Primary Discharge Diagnosis Acute Problems: Active Problems (Last Updated 12/12/20 @ 14:[address] Hiren Card MD) Acute respiratory failure with hypoxia (Acute) due to bilateral COVID-19 pneumonia Pneumonia due to COVID-19 virus (Acute) Suspected Problems: Suspected Problems (Last Updated 12/12/20 @ 14:[address] Hiren Card MD) Pulmonary hypertension (Suspected) - Secondary Discharge Diagnosis Chronic Problems: Chronic Problems (Last Updated 12/12/20 @ 14:[address] Hiren Card MD) Bronchiectasis (Chronic) Coronary artery disease (Chronic) History of lung surgery (Chronic 12/2016) Wedge resection of LLL JAJA treated with BiPAP (Chronic) Neuropathy (Chronic) Fibromyalgia (Chronic) Chronic idiopathic thrombocytopenia (Chronic) Osteopenia (Chronic) Essential hypertension (Chronic) History of lung cancer (Chronic) Status post left lower lobe pneumectomy. History of stroke (Chronic) Hyperlipidemia (Chronic) Anxiety (Chronic) Depression (Chronic) Type 2 diabetes mellitus (Chronic) Hospital Course and Treatment Operations: None Summary of Care Provided: 70 y/o female with multiple PMHx who comes in with SOB and found acute COVID-19 pneumonia with hypoxia with mild symptoms of cough for 2 days prior to admission. 1. Acute hypoxic respiratory failure secondary to COVID-19 pneumonia, remains on 4L oxygen. Patient symptoms of shortness of breath, cough has improved but he still gets dyspnea on exertion. Patient completed 5 days of remdesivir and a prescription given for 5 more days of Decadron 6 mg daily to complete a total of 10 days. Continue with breathing treatments, encourage use of incentive spirometer. Wean off oxygen for SPO2 more than 94%. Denies anosmia, dysgeusia, nausea, vomiting or diarrhea. She smoked for about 2 years in her teenage. 2. 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 CTA chest shows bilateral extensive infiltrate. Liver chemistry shows total protein 6.6, albumin 2.9. Aminotransaminases in normal limit Bilateral extensive infiltrates seen on CTA of the chest 3. Bradycardia secondary to beta-apdmaja; use of carvedilol: Patient does not have symptoms related to bradycardia. Heart rate in 50s. Carvedilol 6.25 mg twice daily. Admitting EKG shows NSR, 1st AV padmaja, no ST-T changes. Continue Coreg with with instruction to hold if heart rate less than 60/min. 4. Elevated D-dimer, CTA of the chest negative for acute large central embolus, lobar and segmental branches: Continue enoxaparin 40 mg twice daily 5. Hypertension, controlled, continue on amlodipine, reduced dose of carvedilol, losartan 6. Type II DM, BS are controlled, continue to hold metformin, continue blood glucose checks ACHS 7. Hyperlipidemia, continue on statin 8. Anxiety/depression, stable, continue on Prozac 9. DVT Prophylaxis with Lovenox subcu She states her does not have symptoms. Discharge medication reconciliation done. Discharge follow-up instructions completed. Discharge process discussed with the patient and all questions were answered to patient's satisfaction. Self quarantine for 2 more weeks until 12/30/2020. Patient is ambulatory in home and in the community and requires home oxygen with portability on exertion. Total time spent, exact 35 minutes on discharge meds reconciliation, examination, coordination of care with nurses and ancillary staff, review of imaging and blood test and discussion with the patient on follow-up instructions Patient Problems: Active and Suspected Problems (Last Updated 12/12/20 @ 14:[address] Hiren Card MD) Acute respiratory failure with hypoxia (Acute) Pneumonia due to COVID-19 virus (Acute) Pulmonary hypertension (Suspected) Objective: Seen and examined. No fever or chills. Patient uses BiPAP at night for sleep apnea. Patient is 92% on ambient air but requires 4 L of oxygen on ambulation to keep pulse ox 90%. General: Alert, Oriented x3, Cooperative HEENT: Atraumatic, PERRLA, EOMI, Normocephalic Oral: No Gingival or Mucosal Lesions/ Ulcerations Neck: Supple, No JVD, Negative Carotid Bruits Lungs: Air entry diminished in bilateral lung bases. No crepitation/rhonchi Cardiovascular: Regular rate, Regular Rhythm, Normal S1, Normal S2, No murmurs Abdomen: Bowel Sounds Present, Soft, Non Tender, Non-Distended : No renal angle tenderness. No suprapubic tenderness. Extremities: No edema, Capillary Refill Less than 3 Seconds Skin: No rashes, No breakdown Musculoskeletal: No Tenderness to Palpation of Joints or Extremities Neurological: Cranial nerves II-XII grossly intact, Deep Tendon Reflexes 2+/4 and Symmetrical, Neuro grossly intact Psych/Mental Status: Normal Affect, Appropriate. - Physical Exam Vitals/I&O's: Vital Signs Temp Pulse Resp BP Pulse Ox 98.3 F 53 L 18 159/59 H 92 12/16/20 08:45 12/16/20 08:45 12/16/20 08:45 12/16/20 08:45 12/16/20 11:19 Oxygen Flow Rate (L/min) [ 4 AMBULATING with Oxygen #3] Oxygen Flow Rate (L/min) [ 3 AMBULATING with Oxygen #2] Oxygen Flow Rate (L/min) [ 2 AMBULATING with Oxygen #1] Oxygen Flow Rate (L/min) [ 0 AMBULATING on Room Air] Oxygen Flow Rate (L/min) [At 0 REST on Room Air] Oxygen Flow Rate (L/min) 2 Oxygen Delivery Method Nasal Cannula Weight: 269 lb 2.951 oz Body Mass Index (BMI) 49.2 Intake and Output for Last 24 Hours 12/14/20 12/15/20 12/16/20 23:59 23:59 23:59 Intake Total 610 / 610 750 / 750 Output Total 200 / 200 Balance 410 / 410 750 / 750 Microbiology Past 72 Hours 12/12/20 12:28 Blood Culture (Wb) - Right Hand Blood Culture - Preliminary No growth in 48 hours. 12/12/20 12:20 Blood Culture (Wb) - Left Hand Blood Culture - Preliminary No growth in 48 hours. Laboratory Results 12/15/20 12:11: POC Glucose 151 H 12/15/20 16:46: POC Glucose 228 H 12/15/20 20:15: POC Glucose 218 H 12/16/20 08:36: POC Glucose 95 12/16/20 08:40: Sodium 139, Potassium 3.5, Chloride 103, Carbon Dioxide 31.0, Anion Gap 5, BUN 20 H, Creatinine 0.71, Estim Creat Clear Calc 41.99, Est GFR (MDRD) Af Amer 105, Est GFR (MDRD) Non-Af 87, BUN/Creatinine Ratio 28.2 H, Glucose 91, Calcium 8.6, Total Bilirubin 0.40, AST 19, ALT 27, Alkaline Phosphatase 67, Total Protein 6.7, Albumin 2.8 L, Globulin 3.9, Albumin/Globulin Ratio 0.7 L Current Medications Acetaminophen (Acetaminophen 325 Mg Tablet) 650 mg PO Q6H PRN PRN PRN Reason: Pain Score 1-10/Temp > 100.7 F Albuterol Sulfate (Albuterol Ih 8.5 Gm (Proair) Inhaler (200 Puffs)) 2 puff INHALATION Q4H PRN PRN PRN Reason: Shortness of breath, wheezing Amlodipine Besylate (Amlodipine 10 Mg Tablet) 10 mg PO DAILY [facility] Last Admin: 12/16/20 08:44 Dose: 10 mg Documented by: Aspirin (Aspirin E.C. 81 Mg Tablet) 81 mg PO DAILY@0800 [facility] Last Admin: 12/16/20 08:44 Dose: 81 mg Documented by: Atorvastatin Calcium (Atorvastatin Calcium 10 Mg Tablet) 10 mg PO QHS [facility] Last Admin: 12/15/20 20:15 Dose: 10 mg Documented by: Carvedilol (Carvedilol 6.25 Mg Tablet) 6.25 mg PO BID [facility] Last Admin: 12/15/20 21:01 Dose: Not Given Documented by: Dexamethasone (Dexamethasone 4 Mg Tablet) 6 mg PO DAILY@0800 [facility] Last Admin: 12/16/20 08:44 Dose: 6 mg Documented by: Dextrose (Dextrose 50%-Water 25 Gm/50 Ml Disp.Syrin) 0 gm IV X1 PRN; Protocol PRN Reason: Hypoglycemia Enoxaparin Sodium (Enoxaparin 40 Mg/0.4 Ml Syringe) 40 mg SC BID [facility] Last Admin: 12/16/20 08:44 Dose: 40 mg Documented by: Fluoxetine HCl (Fluoxetine 20 Mg Capsule) 40 mg PO DAILY [facility] Last Admin: 12/16/20 08:44 Dose: 40 mg Documented by: Glucagon (Glucagon 1 Mg/Ml Syringe) 1 mg IM .X1 PRN PRN Reason: Hypoglycemia Hydroxyzine Pamoate (Hydroxyzine Annmarie 25 Mg Capsule) 25 mg PO QHS [facility] Last Admin: 12/15/20 20:15 Dose: 25 mg Documented by: Remdesivir 100 mg/ Sodium (Chloride) 250 mls @ 125 mls/hr IV DAILY [facility]; Protocol Stop: 12/16/20 11:59 Last Infusion: 12/15/20 12:38 Dose: Infused Documented by: Sodium Chloride () 250 mls @ 15 mls/hr IV .[id number] PRN PRN Reason: Saline Flush Sodium Chloride () 250 mls @ 15 mls/hr IV .[id number] PRN PRN Reason: Additional IVPB Infusion Insulin Human Lispro (Insulin Lispro 100 Unit/Ml Insuln.Pen) 0 unit SC ACHS [facility]; Protocol Last Admin: 12/16/20 08:36 Dose: Not Given Documented by: Losartan Potassium (Losartan Potassium 100 Mg Tablet) 100 mg PO DAILY [facility] Last Admin: 12/16/20 08:44 Dose: 100 mg Documented by: Ondansetron HCl (Ondansetron 4 Mg/2 Ml Vial) 4 mg IV Q8H PRN PRN PRN Reason: NAUSEA/VOMITING Senna/Docusate Sodium (Senna/Docusate Sodium 1 Tablet) 2 tablet PO BID PRN PRN PRN Reason: Constipation Sodium Chloride (0.9% Saline Lock 10 Ml Syringe) 10 - 40 ml IV UD PRN PRN Reason: SALINE FLUSH Last Admin: 12/16/20 08:44 Dose: 20 ml Documented by: Zolpidem Tartrate (Zolpidem Tartrate 5 Mg Tablet) 5 mg PO QHS PRN PRN PRN Reason: INSOMNIA Home Medications: Medications to take at Discharge Amlodipine [Norvasc] 10 mg PO DAILY 02/22/18 Fluoxetine HCl 40 mg PO DAILY 02/22/18 Hydroxyzine HCl 25 mg PO QHS 02/22/18 Ipratropium/Albuterol Sulfate [Duoneb] 3 ml INHALATION Q6H.RT PRN #30 ampul.neb 06/12/19 calcium carbonate 500 mg (1,250 mg)-vitamin D3 200 unit tablet 1 tab PO DAILY 07/11/19 Albuterol Sulfate [Albuterol Sulfate HFA] 2 puff INHALATION Q4H PRN 12/12/20 Alendronate Sodium [Fosamax] 70 mg PO NICKERSON 12/12/20 Aspirin E.C. [Ecotrin] 81 mg PO DAILY@0800 12/12/20 Metformin HCl [Metformin HCl ER] 1,000 mg PO BID 12/12/20 Simvastatin 20 mg PO QHS 12/12/20 Apixaban [Eliquis] 2.5 mg PO BID #30 tablet 12/16/20 Carvedilol 6.25 mg PO BID #60 tablet 12/16/20 Dexamethasone [Decadron] 6 mg PO DAILY@0800 #8 tablet 12/16/20 Losartan Potassium [Cozaar] 100 mg PO DAILY #30 tablet 12/16/20 Following Prescriptions Were Given to Patient: Losartan Potassium [Cozaar] 100 mg PO DAILY #30 tablet Transmission Status: Received by [facility] Dexamethasone [Decadron] 6 mg PO DAILY@0800 #8 tablet Transmission Status: Received by [facility] Apixaban [Eliquis] 2.5 mg PO BID #30 tablet Transmission Status: Received by [facility] Primary Care Physician: Les Valenzuela MD [Primary Care Provider] - Medical Necessity - Tobacco Use Smoking Status: Former smoker Meaningful Use Info Meaningful Use Diagnoses (Choose all that apply): None applicable Inpatient E&M: 14800 [facility]
--- NOTE | 2020-12-16 12:15 | CASEMGMT ---
Per Preston LOMBARDO, pt does qualify for home oxygen 4L w/ exertion and pt had stated preference for [employer]. Script/referral faxed to [facility] notified of pt discharge today and liter dose, voices understanding. Charles LOMBARDO CM
[2020-12-16 12:45] LABS: Bedside Glucose 141 mg/dL (70-110)
--- NOTE | 2020-12-17 12:24 | CASEMGMT ---
[facility] Discharge Follow Up Phone Call: ADRIENNE: Tasia Strata: 3 Call Date: 12/17/20 Discharge Date: 12/16/20 Time of Call:1212 Duration: 5 min Admitting Dx: pneumonia d/t covid 19 [facility] completed follow up phone call after recent hospitalization. Pt states she is doing well at home. States her pulse ox has been in the high 90's. Pt is aware of end of quarantine and states she is trying to quarantine from . Reinforced the importance of this. Pt states she was able to obtain prescriptions except for the dexamethasone. States there was an issue with the script. TC to [facility] in [place] and spoke with pharmacy staff. Med is being filled now and will be ready within the hour. TC back to pt to make aware. She will arrange for this to be picked up. Pt is aware of follow up appts. Pt has no further questions or concerns at this time.
== END 2020-12-16 15:25 | disposition home or self-care (01) | DRG 177 ==
LOC: ED 13:31 → ICU 12-13 07:04
PROVIDERS: Internal Medicine; Internal Medicine Critical Care Medicine; Admitting Provider Hospitalist; Emergency Provider Emergency Medicine; PCP Family Medicine; Visit Provider Internal Medicine
DX: U07.1 COVID-19 (principal); J12.82 Pneumonia due to coronavirus disease 2019; J96.01 Acute respiratory failure with hypoxia; Z68.42 Body mass index [BMI] 45.0-49.9, adult; J47.9 Bronchiectasis, uncomplicated; I25.10 Atherosclerotic heart disease of native coronary artery without angina pectoris; R00.1 Bradycardia, unspecified; T44.7X5A Adverse effect of beta-adrenoreceptor antagonists, initial encounter; Y92.9 Unspecified place or not applicable; I27.20 Pulmonary hypertension, unspecified; E11.42 Type 2 diabetes mellitus with diabetic polyneuropathy; I10 Essential (primary) hypertension; E78.5 Hyperlipidemia, unspecified; M79.7 Fibromyalgia; M85.80 Other specified disorders of bone density and structure, unspecified site; G47.33 Obstructive sleep apnea (adult) (pediatric); E66.01 Morbid (severe) obesity due to excess calories; F32.9 Major depressive disorder, single episode, unspecified; F41.9 Anxiety disorder, unspecified; Z79.01 Long term (current) use of anticoagulants; Z79.84 Long term (current) use of oral hypoglycemic drugs; Z79.82 Long term (current) use of aspirin; Z79.83 Long term (current) use of bisphosphonates; Z79.899 Other long term (current) drug therapy; Z85.118 Personal history of other malignant neoplasm of bronchus and lung; Z86.73 Personal history of transient ischemic attack (TIA), and cerebral infarction without residual deficits; Z85.42 Personal history of malignant neoplasm of other parts of uterus; Z87.891 Personal history of nicotine dependence
CPT/HCPCS: 71045; 71275; 80053; 82550; 82962; 83605; 83880; 84145; 84484; 85025; 85379; 85610; 87040; 87426; 93005; 94002; 94003; 97163; 97165; 99251; 99285; J7030; J7050; Q9967; A4216; G0463

== ENCOUNTER 2021-07-16 17:20 | Emergency (ER) | payer MEDICARE, OTHER, SELFPAY ==
[2021-07-16 17:21] VITALS: BP 205/77; PULSE 85; RESP 20; TEMP 36.6; O2SAT 97; BMI 51.2
--- NOTE | 2021-07-16 17:32 | ED.VIS.DYS ---
HPI History of Present Illness Chief Complaint: Shortness of Breath Informant: patient and spouse/S.O. Narrative Narrative: Patient comes in complaining of cough for about 2 weeks. She has an appointment with her primary physician in the morning. However they did not want a wait that long so they referred her in here today. She states she will feel like she is getting better and then she gets worse again. Most of it is harsh coughing. She is not really bringing up sputum. She has had no fevers chills. No hemoptysis. No chest pain. No leg swelling. No change in appetite. She does have some intermittent wheezing. She does use oxygen since she had Covid in December. She does not feel like Covid. She still uses oxygen at night. She also used CPAP but she has not been using it because it does not work well when she is coughing. No history of DVT or PE. No travel. No leg swelling. Nothing specific makes this better or worse. She denies COPD or asthma but has had steroids used not infrequently for problems like this. She also has a nebulizer with meds at home. [facility] Medical History (Updated 07/16/21 @ 20:[address] Morris Solorio MD) Anxiety Chronic idiopathic thrombocytopenia Depression Essential hypertension Fibromyalgia History of lung cancer History of stroke Hyperlipidemia Neuropathy JAJA treated with BiPAP Osteopenia Pulmonary hypertension Type 2 diabetes mellitus Home Medications amlodipine 10 mg PO DAILY 02/22/18 [History Last Taken 12/12/20] fluoxetine 40 mg PO DAILY 02/22/18 [History Last Taken 12/12/20] hydroxyzine HCl 25 mg PO QHS 02/22/18 [History Last Taken 12/11/20] ipratropium-albuterol 3 ml INHALATION Q6H.RT PRN #30 ampul.neb 06/12/19 [Rx Last Taken Unknown] calcium carbonate 500 mg (1,250 mg)-vitamin D3 200 unit tablet 1 tablet PO DAILY 07/11/19 [History Last Taken 12/10/20] albuterol sulfate 2 puff INHALATION Q4H PRN 12/12/20 [History Last Taken 12/11/20] alendronate 70 mg PO NICKERSON 12/12/20 [History Last Taken 12/07/20] aspirin 81 mg PO DAILY@0800 12/12/20 [History Last Taken 12/12/20] metformin 1,000 mg PO BID 12/12/20 [History Last Taken 12/12/20] simvastatin 20 mg PO QHS 12/12/20 [History Last Taken 12/11/20] carvedilol 6.25 mg PO BID #60 tablet 12/16/20 [Rx Last Taken 12/12/20] losartan 100 mg PO DAILY #30 tablet 12/16/20 [Rx Last Taken Unknown] albuterol sulfate 2.5 mg INHALATION Q4H PRN #75 ml 05/13/21 [Rx Last Taken Unknown] benzonatate 100 mg PO TID PRN PRN #20 cap 07/16/21 [Rx Last Taken Unknown] prednisone 60 mg PO DAILY #15 tab 07/16/21 [Rx Last Taken Unknown] Allergy/AdvReac Type Severity Reaction Status Date / Time lisinopril Allergy Intermediate cough Verified 07/16/21 17:24 Family History Mother Diabetes Arthritis Sister Cancer Brother Cancer leukemia Surgical History History of arthroscopic knee surgery History of cataract extraction with lens replacement History of section History of hand surgery History of hysterectomy History of lung surgery (12/2016) History of tonsillectomy Social History Smoking Status: Former smoker Tobacco: How many years used: 2 how long ago did patient quit smokin years ago second hand exposure: Yes alcohol intake: never substance use type: does not use caffeine: Yes Type: coffee Number of servings: 1 ROS ROS ED Constitutional Constitutional ED: Denies chills, fever(s) or weight loss Eyes Eyes: Denies blurry vision ENT ENT ED: Denies rhinorrhea or sore throat Cardiovascular Cardiovascular: Denies chest pain or palpitations Respiratory/Chest Respiratory/Chest: Reports cough; Denies dyspnea, dyspnea on exertion or sputum Gastrointestinal Gastrointestinal: Denies abdominal pain, nausea or vomiting Genitourinary Genitourinary ED: Denies dysuria Musculoskeletal Musculoskeletal: Denies arthralgias or myalgias Integumentary Denies rash Neurologic Neurologic: Denies paresthesias or weakness Endocrine Endocrinology: Denies polydipsia or polyuria Hematologic/Lymphatic Hematologic/Lymphatic: Denies easy bruising Allergic/Immunologic Allergic/Immunologic ED: Denies urticaria EXAM Physical Exam Const Vital Signs: 07/16/21 17:21 07/16/21 18:08 07/16/21 18:18 Temperature 97.9 F 98.2 F Temperature Source Temporal Temporal Pulse Rate 85 76 Respiratory Rate 20 H 20 H Respiratory Effort Normal Non-Labored Respiratory Depth Normal Respiratory Pattern Normal Blood Pressure 205/77 H 152/75 H Blood Pressure Mean 119 100 Pulse Ox 97 96 Oxygen Delivery Method Nasal Cannula Nasal Cannula Oxygen Flow Rate (L/min) 2 2 07/16/21 18:31 07/16/21 19:16 Temperature Temperature Source Pulse Rate 76 76 Respiratory Rate 18 20 H Respiratory Effort Respiratory Depth Respiratory Pattern Normal Blood Pressure 150/75 H Blood Pressure Mean 100 Pulse Ox 93 Oxygen Delivery Method Room Air Oxygen Flow Rate (L/min) Patient has a harsh dry cough. No productivity. Positive well nourished, well developed and obese General Appearance ED: well developed and NAD; Negative for pallor Nutritional Appearance: obese HEENT Reports moist mucous membranes atraumatic; Negative for tenderness Eyes General Eye ED: Negative for pale conjunctiva or scleral icterus Neck no meningeal signs and no JVD Neck Narrative: No stridor. Resp normal respiratory effort and No clear to auscultation bilaterally Auscultation: wheezes; Negative for rales or rhonchi Cardio regular rate and regular rhythm Back/Spine no CVA tenderness Extremity normal to inspection General Extremety ED: Negative for tenderness Neuro oriented x3 Sensorium / Orientation: alert Psych mental status grossly normal Thought Process: normal thought process Skin General Skin Exam: Negative for pallor Lesions: no lesions Rashes: no rashes MDM MDM MDM Narrative Medical decision making narrative: Blood work shows minimal white count which is nonspecific finding. Hemoglobin is minimally low. Electrolytes show no marked abnormalities. Troponin is negative. Chest x-ray shows no acute findings. Patient is feeling better with treatments. She was given steroids. Her first EKG appeared to be atrial fibrillation. However, I have been watching her monitor and she has sinus arrhythmia but I have not seen A. fib on the monitor. She looks to be in sinus. I did an EKG again. And it looks more like sinus arrhythmia. There are also PACs. When I went back to talk to her again and she was in clear sinus rhythm with a very clear P waves on the monitor. I do not think patient needs antibiotics. We will get her Jose Guadalupe Lott for cough. I will start her on prednisone for 5 days and she will follow up with her physician. She has successfully used prednisone in the past with episodes of bronchitis like this. Lab Data Attestation: I reviewed the patient's lab results. Labs: Laboratory Results - last 24 hr 07/16/21 07/16/21 07/16/21 17:55 17:55 17:55 WBC 12.1 H RBC 4.34 Hgb 11.8 L Hct 36.8 L MCV 84.8 MCH 27.2 MCHC 32.1 RDW Std Deviation 48.1 H RDW Coeff of Erica 15.5 H Plt Count 357 MPV 9.5 Immature Gran % (Auto) 0.400 Neut % (Auto) 67.6 Lymph % (Auto) 19.6 [place] % (Auto) 8.4 Eos % (Auto) 3.5 Baso % (Auto) 0.5 Absolute Neuts (auto) 8.2 H Absolute Lymphs (auto) 2.37 Nucleated RBC % 0 Sodium 138 Potassium 4.3 Chloride 105 Carbon Dioxide 25.0 Anion Gap 8 BUN 16 Creatinine 1.07 H Estim Creat Clear Calc 39.25 Est GFR (MDRD) Af Amer 65 Est GFR (MDRD) Non-Af 54 L BUN/Creatinine Ratio 15.0 Glucose 132 H Calcium 9.1 Troponin I High Sens 5 Radiography Diagnostic Testing: Clinical Impression(s) from Imaging Studies Chest X-Ray 07/16/21 18:10 IMPRESSION: There are no acute findings. Resolution of the pneumonia. Electronically Signed: Apolinar Guillermo MD at 18:23 EDT , Service support , EKG Initial EKG: Comments: EKG done for dyspnea read by me shows atrial fibrillation with a rate of 88. Reviewing her past history she does not appear to have a history of A. fib. There is no ventricular ectopy. No acute ST elevation or depression. QRS duration and QTc are normal. Discharge Plan Triage Chief Complaint: Shortness of Breath ED Provider: Morris Solorio Dx/Rx/DC Orders Clinical Impression: Acute bronchitis with bronchospasm Instructions: ED Bronchitis with Wheezing (Adult) Prescriptions: New prednisone 20 MG tablet 60 mg PO DAILY Qty: 15 RF: 0 benzonatate [benzonatate] 100 MG capsule 100 mg PO TID PRN PRN (Reason: Cough) Qty: 20 RF: 0 No Action calcium carbonate-vitamin D3 [Calcium 500 + D] 500 mg(1,250mg) -200 unit tablet 1 tablet PO DAILY RF: 0 hydroxyzine HCl 25 MG tablet 25 mg PO QHS RF: 0 fluoxetine 40 MG capsule 40 mg PO DAILY RF: 0 amlodipine 10 MG tablet 10 mg PO DAILY RF: 0 ipratropium-albuterol 3 ML solution for nebulization 3 ml INHALATION Q6H.RT PRN (Reason: SHORTNESS OF BREATH) Qty: 30 RF: 0 alendronate 70 MG tablet 70 mg PO NICKERSON RF: 0 aspirin 81 MG tablet 81 mg PO DAILY@0800 RF: 0 simvastatin 20 MG tablet 20 mg PO QHS RF: 0 albuterol sulfate 1 PUFF inhaler 2 puff INHALATION Q4H PRN (Reason: Sob &/Or Wheezing) RF: 0 metformin 500 MG tablet extended release 24 hr 1,000 mg PO BID RF: 0 losartan 100 MG tablet 100 mg PO DAILY Qty: 30 RF: 1 carvedilol 12.5 mg tablet 6.25 mg PO BID Qty: 60 RF: 11 albuterol sulfate 2.5 mg /3 mL (0.083 %) solution for nebulization 2.5 mg inhalation Q4H PRN (Reason: Sob &/Or Wheezing) Qty: 75 RF: 3 Primary Care Provider: Les Valenzuela Referrals: Les Valenzuela MD [Primary Care Provider] - 3-5 Days if not improving Disposition Disposition: Home, Self Care
--- NOTE | 2021-07-16 17:40 | EKG12_ITS ---
Test Reason : SOB Blood Pressure : / mmHG Vent. Rate : 088 BPM Atrial Rate : 105 BPM P-R Int : 000 ms QRS Dur : 100 ms QT Int : 366 ms P-R-T Axes : 000 -57 066 degrees QTc Int : 442 ms Wandering atrial pacemaker Left anterior fascicular block Abnormal ECG Confirmed by DARNELL GRACIA, DANTE ([id number]), marketing editor SEVERIANO LOMELI ([id number]) on 07/20/2021 10:20:46 A M Referred By: ATUL Confirmed By:DON PATRICK MD
[2021-07-16] MEDS: MethylPREDNISolone 125 MG/2 ML Vial IV (18:02)
[2021-07-16 18:08] VITALS: BP 152/75; PULSE 76; RESP 20; TEMP 36.8; O2SAT 96
[2021-07-16 18:10] LABS: Absolute Lymphocyte Count 2.37 X10^3/uL (0.83-4.51); Absolute Neutrophil Count 8.2 X10^3/uL (2.0-7.7); Basophil# 0.06 X10^3/uL; Basophil% 0.5 % (0-1); Eosinophil# 0.43 X10^3/uL; Eosinophils% 3.5 % (0-5); Hematocrit 36.8 % (37-47); Hemoglobin 11.8 g/dL (12.0-15.0); Lymphocyte # 2.37 X10^3/ul (0.83-4.51); Lymphocyte % 19.6 % (19-41); Mean Corp Hgb Conc 32.1 g/dL (32-36); Mean Corpuscular Hgb 27.2 pg (27.0-32.0); Mean Corpuscular Volume 84.8 fL (81-99); Mean Platelet Vol. 9.5 fl (6.2-12.0); Monocyte# 1.02 X10^3/uL; Monocyte% 8.4 % (0-10); NRBC Flagged by Analyzer 0 % (0-5); Neutrophil # 8.19 X10^3/uL (2.7-7.7); Neutrophil % 67.6 % (47-70); Platelet Count 357 K/mm3 (150-450); RBC Distribution Width CV 15.5 % (11.6-14.6); RBC Distribution Width SD 48.1 fl (35.1-43.9); Red Blood Count 4.34 M/mm3 (4.2-5.4); White Blood Count 12.1 K/mm3 (4.4-11.0)
--- NOTE | 2021-07-16 18:10 | RAD_ITS ---
STUDY: XR Chest 2 Views 07/16/2021 6:18 PM REASON FOR EXAM: Female, 70 years old. CHEST PAIN cough COMPARISON: 12/12/2020 TECHNIQUE: XR Chest 2 Views FINDINGS: There is no demonstrated pleural abnormality. Elevated right humeral head with eburnation of the acromion suggest a chronic rotator cuff tear. Enlarged heart size. Normal mediastinum. Normal colt. Prominent appearing increased interstitial lung markings. Normal visualized pulmonary arteries. There is atherosclerotic calcification of the aortic arch with tortuosity. There are diffuse degenerative changes of the visualized thoracic spine. There is degenerative osteoarthritis of the bilateral shoulders. There is no demonstrated abnormality of the visualized soft tissue structures of the upper abdomen. RAD/Chest PA and Lateral IMPRESSION: There are no acute findings. Resolution of the pneumonia. Electronically Signed: Apolinar Guillermo MD at 18:23 EDT , Service support ,
[2021-07-16] MEDS: Ipratropium/Albuterol Sulfate 3 ML AMPUL.NEB INHALATION (18:20)
[2021-07-16 18:29] LABS: Anion Gap 8 (5-15); BUN 16 mg/dL (7-18); Calcium,Total 9.1 mg/dL (8.5-10.1); Chloride 105 mmol/L (98-107); Creatinine, Serum 1.07 mg/dL (0.55-1.02); EST Glomerular Filtration Rate 54 mL/min (>60); Est Glom Filt Rate - Afr Amer 65 mL/min (>60); Estimated Creatinine Clearance 39.25 ml/min; Glucose 132 mg/dL (74-106); Potassium 4.3 mmol/L (3.5-5.1); Sodium Level 138 mmol/L (136-145)
[2021-07-16 18:31] VITALS: PULSE 76; RESP 18
[2021-07-16 19:14] LABS: Troponin-I HS 5 pg/mL (3.0-54.0)
[2021-07-16 19:16] VITALS: BP 150/75; PULSE 76; RESP 20; O2SAT 93
--- NOTE | 2021-07-16 19:26 | EKG12_ITS ---
Test Reason : REPEAT EKG Blood Pressure : / mmHG Vent. Rate : 074 BPM Atrial Rate : 074 BPM P-R Int : 200 ms QRS Dur : 112 ms QT Int : 398 ms P-R-T Axes : 034 -49 030 degrees QTc Int : 441 ms Wandering atrial pacemaker Left anterior fascicular block Abnormal ECG Confirmed by DARNELL GRACIA, DANTE ([id number]), web editor SEVERIANO LOMELI ([id number]) on 07/20/2021 10:21:22 A M Referred By: CHAN Confirmed By:DON PATRICK MD
[2021-07-16] MEDS: predniSONE 20 MG Tablet 60 MG PO (20:20)
[2021-07-16 20:21] VITALS: BP 154/75; PULSE 72; RESP 18; O2SAT 93
== END 2021-07-16 20:24 | disposition home or self-care (01) ==
PROVIDERS: Emergency Provider Emergency Medicine; PCP Family Medicine
DX: J20.9 Acute bronchitis, unspecified (principal); E11.40 Type 2 diabetes mellitus with diabetic neuropathy, unspecified; I27.20 Pulmonary hypertension, unspecified; I10 Essential (primary) hypertension; E78.5 Hyperlipidemia, unspecified; G47.33 Obstructive sleep apnea (adult) (pediatric); F32.A Depression, unspecified; F41.9 Anxiety disorder, unspecified; E66.9 Obesity, unspecified; Z79.84 Long term (current) use of oral hypoglycemic drugs; Z79.82 Long term (current) use of aspirin; Z79.899 Other long term (current) drug therapy; Z86.16 Personal history of COVID-19; Z86.73 Personal history of transient ischemic attack (TIA), and cerebral infarction without residual deficits; Z85.118 Personal history of other malignant neoplasm of bronchus and lung; Z87.891 Personal history of nicotine dependence
CPT/HCPCS: 71046; 80048; 84484; 85025; 93005; 94640; 96374; 99285; A4216

== ENCOUNTER 2021-10-13 10:36 | Outpatient (CLI) | payer MEDICARE, OTHER, SELFPAY ==
--- NOTE | 2021-10-13 14:40 | PFTCOMP_ITS ---
COMPLETE PULMONARY FUNCTION TEST INTERPRETATION Brief HPI: Patient is a 71 year old female, currently under the care of Dr. Zheng, who presents to [facility] for complete pulmonary function tests secondary to diagnosis of dyspnea. Respiratory therapist reports good effort and reproducible results. Interpretation: Forced expiration spirometry shows no large airways obstructive ventilatory defect with an FEV1 of 71% predicted. There is no significant bronchodilator response by strict ATS criteria. Spirograms are of good quality and plateau normally. The respiratory flow volume loop shows a normal pattern. Lung volumes by body plethysmography show a decreased total lung capacity at 3.44 L, 78% predicted. All other lung volumes are within normal limits. Diffusion capacity by carbon monoxide is decreased at 56% predicted. The airway resistance is normal. Compared to previous pulmonary function tests from 08/08/2019, there has been no significant change. Impression: Mild restrictive ventilatory defect with a disproportionate reduction in diffusion capacity, but relative stability compared to 2019.
== END 2021-10-13 23:59 | disposition short-term general hospital (02) ==
LOC: PSN 10:40
PROVIDERS: PCP Family Medicine; Referring Provider Nurse Practitioner Acute Care; Visit Provider Nurse Practitioner Acute Care
DX: R06.02 Shortness of breath (principal)
CPT/HCPCS: 94060; 94726; 94729

== ENCOUNTER 2021-10-20 08:37 | Outpatient (CLI) | payer MEDICARE, OTHER, SELFPAY ==
[2021-10-20 08:45] VITALS: PULSE 70; PULSE 76; PULSE 77; PULSE 79; PULSE 80; PULSE 81; PULSE 82; O2SAT 91; O2SAT 92; O2SAT 94; O2SAT 95; O2SAT 96
--- NOTE | 2021-10-20 09:16 | CPS ---
Pt needed to take a rest at 4 minutes into walk. Pt stated she had a little bit of S.O.B but her bigger complaint was her legs getting tired. The pt restarted at 5 minutes 30 seconds on timer.
--- NOTE | 2021-10-20 13:15 | PCM.PSN.6M ---
PSN 6 Minute Walk Test 6 Minute Walk Test 6 Minute Walk Test: 6 Minute Walk Test PSN:6-Minute Walk Test Start: 10/20/21 09:11 Freq: Status: Active Protocol: RESP.6MINW Document 10/20/21 08:45 [facility] (Rec: 10/20/21 09:15 [facility] [id number]) 6 Minute Walk Test Date Performed 10/20/21 Time Performed 08:45 Height 5 ft 2 in Weight: 122.47 kg Weight in Pounds 270.[address]: Sharmaine Assistive device used: Walker Pre-test Oxygen Delivery Method Room Air Pulse Ox (%) 96 Pulse Rate (60-100 beats/min) 70 Dyspnea Charly Scale (0-10) 0 Exertion Charly Scale (6-20) 6 1st minute Oxygen Delivery Method Room Air Pulse Ox (%) 94 Pulse Rate (60-100 beats/min) 79 2nd minute Oxygen Delivery Method Room Air Pulse Ox (%) 91 Pulse Rate (60-100 beats/min) 81 3rd minute Oxygen Delivery Method Room Air Pulse Ox (%) 92 Pulse Rate (60-100 beats/min) 82 4th minute Oxygen Delivery Method Room Air Pulse Ox (%) 91 Pulse Rate (60-100 beats/min) 81 Dyspnea Charly Scale (0-10) 2 Reported Symptoms Increased Work of Breathing 5th minute Oxygen Delivery Method Room Air Pulse Ox (%) 96 Pulse Rate (60-100 beats/min) 77 Dyspnea Charly Scale (0-10) 2 Number of Rests Taken 1 Reported Symptoms Increased Work of Breathing 6th minute Oxygen Delivery Method Room Air Pulse Ox (%) 94 Pulse Rate (60-100 beats/min) 80 Dyspnea Charly Scale (0-10) 1 Exertion Charly Scale (6-20) 13 Post-test Oxygen Delivery Method Room Air Pulse Ox (%) 95 Pulse Rate (60-100 beats/min) 76 Full Laps Walked 7 Partial Lap, Number of Tiles Walked 32 Total Distance Walked (ft) 445 Interpretation Interpretation: The patient ambulated 445 feet over the course of 6 minutes beginning on room air with the use of a walker. Pretesting oxygen saturation was noted to be 96% on room air. With ambulation, the hannah oxygen saturation was 91%. This testing indicated the presence of impaired walk distance along with significant exertional oxygen desaturation. Recommendations Recommendations: There is no indication for the use of supplemental oxygen at this time. However, close interval follow-up is recommended, given the degree of oxygen desaturation noted during the study.
== END 2021-10-20 23:59 | disposition home or self-care (01) ==
LOC: PSN 08:42
PROVIDERS: PCP Family Medicine; Referring Provider Nurse Practitioner Acute Care; Visit Provider Nurse Practitioner Acute Care
DX: R06.02 Shortness of breath (principal)
CPT/HCPCS: 94618

== ENCOUNTER 2022-04-26 16:27 | Inpatient (IN) | payer MEDICARE, OTHER, SELFPAY ==
[2022-04-26] VITALS (10 sets, daily range): BP systolic 144–195; BP diastolic 65–90; PULSE 66–78; RESP 12–22; TEMP 36.4–36.6; O2SAT 92–97; BMI 49.4; BMI 49.5; BMI 48.4
--- NOTE | 2022-04-26 16:30 | CT_ITS ---
We are attempting to reach an attending provider to discuss findings. An addendum with communication details will be sent when the communication is complete. STUDY: CT BRAIN WITHOUT CONTRAST REASON FOR EXAM: Female, 71 years old. Neuro deficit, acute, stroke suspected Individualized dose optimization techniques were used for this CT. Radiation: CTDIvol = [44.99] mGy, DLP = [846.73] mGy-cm TECHNIQUE: Transaxial CT imaging of the brain was performed without administration of intravenous contrast material. COMPARISON: None FINDINGS: There are calcifications around the carotid artery. These are noted in the cavernous carotid arteries. Normal calvarium. Subcutaneous nodules are noted. These may represent granulomas, sebaceous cyst, sequale of previous trauma. There is mild cerebral atrophy with widening of the extra-axial spaces and ventricular dilatation. There are areas of decreased attenuation within the white matter tracts of the supratentorial brain, consistent with microvascular disease changes. Normal basal ganglia and thalami. Normal brainstem. There is mild cerebellar atrophy. There is no intracranial hemorrhage. There are no findings of an acute ischemic infarction. Normal visualized paranasal sinuses. ASPECTS Score for Acute Strokes: 10/ CT/STROKE Brain/Head without Cont IMPRESSION: There are no acute findings. Chronic involutional changes of the brain.Critical finding called and case discussed. Electronically Signed: Apolinar Guillermo MD at 16:46 EDT ,
--- NOTE | 2022-04-26 16:30 | EKG12_ITS ---
Test Reason : stroke Blood Pressure : / mmHG Vent. Rate : 075 BPM Atrial Rate : 075 BPM P-R Int : 232 ms QRS Dur : 106 ms QT Int : 414 ms P-R-T Axes : 053 -43 041 degrees QTc Int : 462 ms Sinus rhythm with marked sinus arrhythmia with 1st degree A-V block Left axis deviation Poor R wave progression Abnormal ECG Confirmed by BETH GRACIA, BRAYDEN ([id number]), rewrite editor SEVERIANO LOMELI ([id number]) on 04/28/2022 9:42:20 AM Referred By: Juanjo Confirmed By:BRAYDEN CAMPOS MD
--- NOTE | 2022-04-26 16:30 | CT_ITS ---
We are attempting to reach an attending provider to discuss findings. An addendum with communication details will be sent when the communication is complete. EXAM: CT ANGIOGRAPHY HEAD AND NECK WITH INTRAVENOUS CONTRAST CLINICAL INDICATION: Neuro deficit, acute, stroke suspected TECHNIQUE: [place]/head and neck CT angiography protocol performed with intravenous contrast. This CT exam was performed using one or more of the following dose reduction techniques: automated exposure control, adjustment of the mA and/or kV according to patient size, and/or use of iterative reconstruction technique. This report was created using Marvin report generation technology. MIP reconstructed images were created and reviewed. CONTRAST: [id number] 100ML RADIATION DOSE: CTDIvol = 20.72 mGy, DLP = 777.46 mGy-cm COMPARISON: None. FINDINGS: HEAD: RIGHT ANTERIOR CEREBRAL ARTERY: Unremarkable. No significant stenosis at the visualized segments. Anterior communicating artery is present. No aneurysm. RIGHT MIDDLE CEREBRAL ARTERY: Unremarkable. No significant stenosis at the visualized segments. No aneurysm. RIGHT POSTERIOR CEREBRAL ARTERY: Unremarkable. No occlusion or significant stenosis. No aneurysm. RIGHT INTRACRANIAL INTERNAL CAROTID ARTERY: Unremarkable. No significant stenosis. No dissection or occlusion. RIGHT INTRACRANIAL VERTEBRAL ARTERY: Unremarkable. No significant stenosis. No dissection or occlusion. LEFT ANTERIOR CEREBRAL ARTERY: Unremarkable. No significant stenosis at the visualized segments. No aneurysm. LEFT MIDDLE CEREBRAL ARTERY: Unremarkable. No significant stenosis at the visualized segments. No aneurysm. LEFT POSTERIOR CEREBRAL ARTERY: Unremarkable. No occlusion or significant stenosis. No aneurysm. LEFT INTRACRANIAL INTERNAL CAROTID ARTERY: Unremarkable. No significant stenosis. No dissection or occlusion. LEFT INTRACRANIAL VERTEBRAL ARTERY: Unremarkable. No significant stenosis. No dissection or occlusion. BASILAR ARTERY: Unremarkable. No significant stenosis. No aneurysm. OTHER VASCULATURE: There are no acute findings of the right and left internal carotid artery. ALL ABOVE CRITERIA BY NASCET. No vascular malformation. NECK: RIGHT COMMON CAROTID ARTERY: Unremarkable. No significant stenosis. No dissection or occlusion. RIGHT EXTRACRANIAL INTERNAL CAROTID ARTERY: Unremarkable. No significant stenosis. No dissection or occlusion. RIGHT EXTERNAL CAROTID ARTERY: Unremarkable. No occlusion. RIGHT EXTRACRANIAL VERTEBRAL ARTERY: Unremarkable. No significant stenosis. No dissection or occlusion. LEFT COMMON CAROTID ARTERY: Unremarkable. No significant stenosis. No dissection or occlusion. LEFT EXTRACRANIAL INTERNAL CAROTID ARTERY: Unremarkable. No significant stenosis. No dissection or occlusion. LEFT EXTERNAL CAROTID ARTERY: Unremarkable. No occlusion. LEFT EXTRACRANIAL VERTEBRAL ARTERY: Unremarkable. No significant stenosis. No dissection or occlusion. GREAT VESSELS OF AORTIC ARCH: Unremarkable as visualized. Normal anatomy, patent. LUNG APICES: Unremarkable as visualized. HEAD and NECK: BONES/JOINTS: There are degenerative findings of the cervical spine. No discrete lytic or blastic abnormalities. SOFT TISSUES: Unremarkable. OTHER FINDINGS: There are no acute findings of the [place] without a demonstrated aneurysm or hemodynamically significant stenosis. ALL ABOVE CRITERIA BY NASCET. CAROTID STENOSIS REFERENCE USING NASCET CRITERIA: % ICA stenosis = (1 - narrowest ICA diameter/diameter of distal cervical ICA) x 100. Mild - <50% stenosis. Moderate - 50-69% stenosis. Severe - 70-94% stenosis. Near occlusion - 95-99% stenosis. Occluded - 100% stenosis. CT/STROKE CTA Head AND Neck W/Con IMPRESSION: 1. There are no acute findings of the [place] without a demonstrated aneurysm or hemodynamically significant stenosis. ALL ABOVE CRITERIA BY NASCET. 2. There are no acute findings of the right and left internal carotid artery. ALL ABOVE CRITERIA BY NASCET. Electronically Signed: Apolinar Guillermo MD at 17:09 EDT ,
--- NOTE | 2022-04-26 16:30 | NURSING ---
NO OLD EKGS
--- NOTE | 2022-04-26 16:30 | ED.VIS.STROK ---
HPI History of Present Illness Chief Complaint: Neuro S/Sx Informant: patient Onset/Context/Timing Onset: Today (2.5 hrs prior to eval in triage upon arrival) Context: Sudden Onset Timing: Continuous Current Severity: Mild Maximum Severity: Moderate Worsened by: nothing Relieved by: nothing in particular Associated Symptoms Associated Symptoms: Positive for Headache; Negative for Nausea, Vomiting or Chest Pain Narrative Narrative: Patient states she had a sudden onset headache that waxed and waned starting this morning, then around 1400, she noticed her legs for some reason give out and caused her to fall to the floor, she denies any injury but could not get up, she states if she falls she cannot get up at baseline, but she noticed that as she lied there she had new onset of numbness in the left arm and left leg. That is improving but still present. She had a TIA in the past so she presented out of concern for that possibility again. She is on aspirin daily but no anticoagulants. No recent illness. She did not hit her head prior to having a headache that started earlier in the day. [facility] Medical History (Updated 04/26/22 @ 19:[address] Lyndsay Torres, DO) Depression Diabetes History of carcinoma History of TIA (transient ischemic attack) HTN (hypertension) Hyperlipidemia Lung cancer Morbid obesity Obstructive sleep apnea Pneumonia due to COVID-19 virus Home Medications amlodipine 10 mg tablet 5 mg PO DAILY bp 04/26/22 [History Last Taken 04/26/22] aspirin 81 mg capsule 81 mg PO DAILY blood thinner 04/26/22 [History Last Taken 04/26/22] carvedilol 6.25 mg tablet 6.25 mg PO BID bp 04/26/22 [History Last Taken 04/26/22] losartan 100 mg tablet 100 mg PO DAILY bp 04/26/22 [History Last Taken 04/26/22] metformin 500 mg tablet,extended release 24 hr 1,000 mg PO BID diabetes 04/26/22 [History Last Taken 04/26/22] primidone 50 mg tablet 25 mg PO QHS shaking 04/26/22 [History Last Taken 04/25/22] simvastatin 20 mg tablet 20 mg PO DAILY cholesterol 04/26/22 [History Last Taken 04/25/22] Allergy/AdvReac Type Severity Reaction Status Date / Time No Known Allergies Allergy Verified 04/26/22 16:54 Family History (Updated 04/26/22 @ 19:[address] Lyndsay Torres DO) Other Arthritis Cancer Diabetes Heart disease Hypertension Surgical History (Updated 04/26/22 @ 19:[address] Lyndsay Torres DO) H/O arthroscopic knee surgery H/O hand surgery H/O: hysterectomy History of cataract surgery History of lung surgery Hx of tonsillectomy Previous section Social History (Updated 04/26/22 @ 19:[address] Lyndsay Torres DO) household members: spouse housing: house Smoking Status: Never smoker alcohol intake: never substance use type: does not use ROS ROS ED Constitutional Constitutional ED: Denies chills or fever(s) Eyes Eyes: Denies blurry vision, change in vision or diplopia ENT ENT ED: Denies ear pain, rhinorrhea or sore throat Cardiovascular Cardiovascular: Denies chest pain or palpitations Respiratory/Chest Respiratory/Chest: Denies cough or dyspnea Gastrointestinal Gastrointestinal: Denies abdominal pain, diarrhea, nausea or vomiting Genitourinary Genitourinary ED: Denies dysuria or hematuria Musculoskeletal Musculoskeletal: Denies back pain or neck pain Integumentary Denies abscess or rash Neurologic Neurologic: Reports headache(s), paresthesias and weakness Psychiatric Psychiatric: Denies anxiety or suicidal thoughts EXAM Physical Exam Const Vital Signs: 04/26/22 16:28 04/26/22 16:30 04/26/22 16:30 Temperature 97.6 F L Temperature Source Temporal Pulse Rate 78 69 Respiratory Rate 16 20 H Blood Pressure 154/88 H 166/65 H Blood Pressure Mean 110 98 Pulse Ox 97 94 94 Oxygen Delivery Method Room Air Room Air Room Air 04/26/22 17:00 04/26/22 17:30 04/26/22 18:10 Temperature Temperature Source Pulse Rate 76 66 73 Respiratory Rate 14 20 H 18 Blood Pressure 165/73 H 144/67 H 172/79 H Blood Pressure Mean 103 92 110 Pulse Ox 92 96 94 Oxygen Delivery Method Room Air Room Air Positive well nourished, well developed and obese General Appearance ED: well developed and NAD Nutritional Appearance: obese HEENT Reports moist mucous membranes normocephalic and atraumatic Eyes PERRL and EOMs intact bilaterally Neck full ROM and supple Resp normal respiratory effort and clear to auscultation bilaterally Cardio regular rate, regular rhythm and no murmurs GI non-tender and non-distended Auscultation: normoactive bowel sounds Palpation: soft Back/Spine no CVA tenderness General Back: other FROM Extremity normal to inspection General Extremety ED: Negative for edema, pulses abnormal or tenderness General Extremity: Negative for edema or pulses abnormal Neuro oriented x3 and CN's II-XII intact bilaterally Neuro Narrative: Subjective decrease in sensation left arm and left foot. Grossly intact. Weak in the left lower and upper extremities, strength is good otherwise. Normal speech. Keenly alert. Sensorium / Orientation: awake and alert Psych mental status grossly normal Skin no rashes or lesions noted and no wounds STROKE Vital Signs/Narrative: Vital Signs Temp Pulse Resp BP Pulse Ox O2 Del Method 04/26/22 18:10 73 18 172/79 H 94 Room Air 04/26/22 17:30 66 20 H 144/67 H 96 04/26/22 17:00 76 14 165/73 H 92 Room Air 04/26/22 16:30 69 20 H 166/65 H 94 Room Air 04/26/22 16:30 94 Room Air 04/26/22 16:28 97.6 F L 78 16 154/88 H 97 Room Air NIHSS Initial: 1a Level of Consciousness: 0 1b LOC Questions (Score 2 if aphasic/stupor): 0 1c LOC Commands (Only score 1st attempt): 0 2 Best Gaze (If aphasic, use reflexive mvmts.): 0 3 Visual: 0 4 Facial Palsy: 0 5 Motor Arm Right (UN = amputation/fusion): 0 5 Motor Arm Left: 1 6 Motor Leg Right: 0 6 Motor Leg Left: 1 7 Limb ataxia (Only + if out of proportion): 0 8 Sensory (Aphasia/stupor=0 or 1, coma=2): 1 9 Best Language: 0 10 Dysarthria (mute, coma=2, intubated=UN): 0 11 Extinction and Inattention (only scored if +): 0 Total Score: 3 MDM MDM MDM Narrative Medical decision making narrative: Patient seen in triage, after my initial partial evaluation, which I finished after the patient returned to the room, she was sent directly to CT for plain CT, we did not have an IV at that time so she went for CTA afterwards. Stroke neurologist states that tPA not indicated. At this time, CTA results pending. Patient exam is unchanged with an NIHSS 3. CT angiography negative. Patient condition unchanged, her glucose is 95. Otherwise work-up unremarkable. 1 view chest x-ray negative on my interpretation for nothing acute, appears to have cardiomegaly. EKG shows sinus rhythm. Plan is to admit for further stroke work-up and observation. I talked to Dr. Laboy the stroke neurologist at [facility]. He states that the patient told him the last time she was normal without the symptoms was 3 days ago, which is the reason he is not recommending tPA. After discussing with the patient and family, I think this is incorrect; the patient states maybe she started having a headache a couple days ago, but mainly worse today, her neurologic symptoms started at 1400 today acutely. At the current time when I had a conversation with him, it is just after the CTA returned negative, 4 hours and 20 minutes after she told me her left side went numb and felt weak. I do think that at this time her symptoms are outside of the window for treatment, and the possibility of symptoms starting 3 days ago, I am withholding tPA. I discussed that with the patient and family was present during it, several members. They are in agreement that the risks of bleeding outweigh the potential benefits at this time. Just prior to speaking with the hospitalist about admitting this patient, she started to have confusion that she did not have initially. Her blood pressure is up to 195/95, which does not meet criteria for treating at this time. I am sending her for repeat CT to ensure she did not have a bleed or any other changes. Repeat CT is negative for anything acute. On reevaluation, her confusion is resolved. I spoke with her and her family. Her blood pressure is now down to the 170s without treatment, it is certainly possible that the elevated blood pressure was causing some of this, but as I discussed with him, it did not meet criteria for treatment. Lab Data Attestation: I reviewed the patient's lab results. Labs: Laboratory Results - last 24 hr 04/26/22 04/26/22 04/26/22 16:46 16:55 16:55 WBC 11.9 H RBC 4.53 Hgb 12.8 Hct 38.8 MCV 85.7 MCH 28.3 MCHC 33.0 RDW Std Deviation 46.3 H RDW Coeff of Erica 14.7 H Plt Count 321 MPV 9.5 Immature Gran % (Auto) 0.400 Neut % (Auto) 70.9 H Lymph % (Auto) 16.8 L Briscoe % (Auto) 8.9 Eos % (Auto) 2.5 Baso % (Auto) 0.5 Absolute Neuts (auto) 8.4 H Absolute Lymphs (auto) 1.99 Nucleated RBC % 0 PT 13.6 INR 1.1 APTT 23.7 L Sodium Potassium Chloride Carbon Dioxide Anion Gap BUN Creatinine Estim Creat Clear Calc Est GFR (MDRD) Af Amer Est GFR (MDRD) Non-Af BUN/Creatinine Ratio Glucose Calcium Troponin I High Sens POC Glucose 95 04/26/22 16:55 WBC RBC Hgb Hct MCV MCH MCHC RDW Std Deviation RDW Coeff of Erica Plt Count MPV Immature Gran % (Auto) Neut % (Auto) Lymph % (Auto) Briscoe % (Auto) Eos % (Auto) Baso % (Auto) Absolute Neuts (auto) Absolute Lymphs (auto) Nucleated RBC % PT INR APTT Sodium 137 Potassium 3.7 Chloride 103 Carbon Dioxide 24.0 Anion Gap 10 BUN 13 Creatinine 0.87 Estim Creat Clear Calc 47.59 Est GFR (MDRD) Af Amer 83 Est GFR (MDRD) Non-Af 69 BUN/Creatinine Ratio 15.0 Glucose 98 Calcium 9.1 Troponin I High Sens 4 POC Glucose Radiography Diagnostic Testing: Clinical Impression(s) from Imaging Studies Brain CT 04/26/22 16:30 IMPRESSION: There are no acute findings. Chronic involutional changes of the brain.Critical finding called and case discussed. Electronically Signed: Apolinar Guillermo MD at 16:46 EDT , ADDENDUM: 04/26/22 4193 IMPRESSION: There are no acute findings. Chronic involutional changes of the brain.Critical finding called and case discussed. N.B. : The above Results were Read Back by Apolinar Guillermo MD to Blair Smart MD, and understanding confirmed on 04/26/2022 16:51:26 (ET). Electronically Signed: Apolinar Guillermo MD at 16:46 EDT , Head/Neck CTA 04/26/22 16:30 IMPRESSION: 1. There are no acute findings of the [place] without a demonstrated aneurysm or hemodynamically significant stenosis. ALL ABOVE CRITERIA BY NASCET. 2. There are no acute findings of the right and left internal carotid artery. ALL ABOVE CRITERIA BY NASCET. Electronically Signed: Apolinar Guillermo MD at 17:09 EDT , ADDENDUM: 04/26/22 1720 IMPRESSION: 1. There are no acute findings of the [place] without a demonstrated aneurysm or hemodynamically significant stenosis. ALL ABOVE CRITERIA BY NASCET. 2. There are no acute findings of the right and left internal carotid artery. ALL ABOVE CRITERIA BY NASCET. N.B. : The above Results were Read Back by Apolinar Guillermo MD to Blair Smart MD, , and understanding confirmed on 04/26/2022 17:13:58 (ET). Electronically Signed: Apolinar Guillermo MD at 17:09 EDT , Chest X-Ray 04/26/22 17:07 IMPRESSION: There are no acute findings. Electronically Signed: Apolinar Guillermo MD at 17:52 EDT , Brain CT 04/26/22 18:48 IMPRESSION: Chronic involutional changes of the brain. Critical finding called and case discussed. Electronically Signed: Apolinar Guillermo MD at 19:46 EDT , ADDENDUM: 04/26/221958 IMPRESSION: Chronic involutional changes of the brain. Critical finding called and case discussed. N.B. : The above Results were Read Back by Apolinar Guillermo MD to Blair Geiger MD, and understanding confirmed on 04/26/2022 19:52:23 (ET). Electronically Signed: Apolinar Guillermo MD at 19:46 EDT , Rhythm Strip Rhythm Strip: Sinus Rhythm Rate: 75 Ectopy: None EKG Initial EKG: Attestation: I personally reviewed and interpreted this EKG as follows: Interpretation: Sinus Arrythmia and LAFB Prior: No Prior Stroke Documentation Questions Stroke Team Activated: Yes (in triage) Reviewed Inclusion/Exclusion criteria: Yes Was Patient considered for Endovascular Intervention?: No-CTA negative, determined not to be an endovascular candidate IV Alteplase (t-PA) Administered: No Critical Care Time Critical Care Time: Yes Critical care time (excluding procedures): 30-74 minutes (35 min), Including time spent:, Discussing w/Patient &/or Family/Coagulating Drying Supervisor, Discussing w/Consultants, Arranging Admission or Transfer and Performing Direct Patient Care at Bedside Discharge Plan Dx/Rx/DC Orders Clinical Impression: Acute ischemic right MCA stroke, Acute headache, Altered mental status Disposition Disposition: Acute Care Hospital [facility]
--- NOTE | 2022-04-26 16:51 | CM.ED ---
SW Note SW responded to stroke alert for patient. SW provided emotional support to patient's . No other issues or needs voiced. SW remains available if needs arise. Kylah MARTINEZ
[2022-04-26 17:06] LABS: Absolute Lymphocyte Count 1.99 X10^3/uL (0.83-4.51); Absolute Neutrophil Count 8.4 X10^3/uL (2.0-7.7); Basophil# 0.06 X10^3/uL; Basophil% 0.5 % (0-1); Eosinophils% 2.5 % (0-5); Hematocrit 38.8 % (37-47); Hemoglobin 12.8 g/dL (12.0-15.0); Lymphocyte # 1.99 X10^3/ul (0.83-4.51); Lymphocyte % 16.8 % (19-41); Mean Corpuscular Hgb 28.3 pg (27.0-32.0); Mean Corpuscular Volume 85.7 fL (81-99); Mean Platelet Vol. 9.5 fl (6.2-12.0); Monocyte# 1.06 X10^3/uL; Monocyte% 8.9 % (0-10); NRBC Flagged by Analyzer 0 % (0-5); Neutrophil # 8.42 X10^3/uL (2.7-7.7); Neutrophil % 70.9 % (47-70); Platelet Count 321 K/mm3 (150-450); RBC Distribution Width CV 14.7 % (11.6-14.6); RBC Distribution Width SD 46.3 fl (35.1-43.9); Red Blood Count 4.53 M/mm3 (4.2-5.4); White Blood Count 11.9 K/mm3 (4.4-11.0)
--- NOTE | 2022-04-26 17:07 | RAD_ITS ---
STUDY: X-RAY CHEST REASON FOR EXAM: Female, 71 years old. Technologist Notes HEADACHE ALL DAY, SUDDEN LEFT SIDED NUMBNESS AND WEAKNESS THAT CAUSED PT TO FALL AT APPROX 1430 Neuro deficit, acute, stroke suspected TECHNIQUE: XR Chest 1 View COMPARISON: Prior comparison studies are not available for review at this time. FINDINGS: There is no demonstrated pleural abnormality. Normal size heart. Normal mediastinum and colt. Normal visualized pulmonary arteries. There is atherosclerotic calcification of the aortic arch with tortuosity. There are diffuse degenerative changes of the visualized thoracic spine. There is degenerative osteoarthritis of the bilateral shoulders. There is no demonstrated abnormality of the visualized soft tissue structures of the upper abdomen. RAD/Chest 1 View IMPRESSION: There are no acute findings. Electronically Signed: Apolinar Guillermo MD at 17:52 EDT ,
[2022-04-26 17:16] LABS: International Normalized Ratio 1.1; Prothrombin Time (Protime)PT. 13.6 SECONDS (11.7-14.9)
[2022-04-26 17:17] LABS: Partial Thromboplast Time 23.7 Seconds (24.1-36.2)
[2022-04-26 17:25] LABS: Bedside Glucose 95 mg/dL (74-106)
[2022-04-26 17:28] LABS: Anion Gap 10 (5-15); BUN 13 mg/dL (7-18); Calcium,Total 9.1 mg/dL (8.5-10.1); Chloride 103 mmol/L (98-107); Creatinine, Serum 0.87 mg/dL (0.55-1.02); EST Glomerular Filtration Rate 69 mL/min (>60); Est Glom Filt Rate - Afr Amer 83 mL/min (>60); Estimated Creatinine Clearance 47.59 ml/min; Glucose 98 mg/dL (74-106); Potassium 3.7 mmol/L (3.5-5.1); Sodium Level 137 mmol/L (136-145); Troponin-I HS 4 pg/mL (3.0-54.0)
--- NOTE | 2022-04-26 18:45 | ED.RN ---
PT'S FAMILY CAME OUT TO STAFF ASKING TO REASSESS PATIENT. THIS RN PERFORMS NIH ON PATIENT AT THIS TIME. DR WRIGHT MADE AWARE OF FINDINGS- NO NEW ORDERS AT THIS TIME.
--- NOTE | 2022-04-26 18:48 | CT_ITS ---
We are attempting to reach an attending provider to discuss findings. An addendum with communication details will be sent when the communication is complete. STUDY: CT BRAIN WITHOUT CONTRAST REASON FOR EXAM: Female, 71 years old. acute ischemic stroke, L sided weak, now confused Individualized dose optimization techniques were used for this CT. TECHNIQUE: Transaxial CT imaging of the brain was performed without administration of intravenous contrast material. COMPARISON: Study done earlier today. FINDINGS: There are calcifications around the carotid artery. These are noted in the cavernous carotid arteries. Normal calvarium. Subcutaneous nodules are noted. These may represent granulomas, sebaceous cyst, sequale of previous trauma. There is mild cerebral atrophy with widening of the extra-axial spaces and ventricular dilatation. There are areas of decreased attenuation within the white matter tracts of the supratentorial brain, consistent with microvascular disease changes. Normal basal ganglia and thalami. Normal brainstem. There is mild cerebellar atrophy. There is no intracranial hemorrhage. There are no findings of an acute ischemic infarction. Normal visualized paranasal sinuses. ASPECTS Score for Acute Strokes: 06/21 CT/STROKE Brain/Head without Cont IMPRESSION: Chronic involutional changes of the brain. Critical finding called and case discussed. Electronically Signed: Apolinar Guillermo MD at 19:46 EDT ,
--- NOTE | 2022-04-26 18:50 | ED.RN ---
PT UNABLE TO TELL ME HER DATE, GIVES HUSBANDS. PT STATES 36 YEARS OLD AND UNABLE TO RECALL SOME FAMILY MEMBERS. DR WRIGHT UPDATED IN CHANGE.
--- NOTE | 2022-04-26 19:14 | HP.PCM.HOS_ITS ---
HPI - General General Date of Admission: 04/26/22 Date of Service: 04/26/22 Chief Complaint: Headache/weakness/tingling numbness left side HPI Narrative BRI FLORIAN, is a 71 F who presented to the emergency department [facility] on 04/26/2022 with left-sided weakness and tingling and numbness. She reports that she has had a headache ongoing for a couple of days but this afternoon developed acute onset weakness on the left side which resulted in a fall. She did not sustain injury from this fall however she has had persistent weakness and tingling and numbness on the side. Her weakness/tingling numbness started approximately at 1400 today. She has a history of TIA at which time she had left-sided weakness and left-sided facial droop. She has no residual symptoms related to this. Evidently in the emergency department she suffered from a bout of very brief confusion. Her daughter stated they were conversing and she was not able to remember her birthdate. She then had a period of what sounds that she was dazed and these resolved quite quickly and her family now reports she is at baseline with regards to her mental status. She indicates she feels back to baseline and family reports her mental status is back to baseline however on exam she has some persistent sensory deficits and some mild weakness noted. Cranial nerves appear to be normal on exam. Vital signs on presentation show a temperature of 97.6, pulse rate of 78, blood pressure is 154/88, respiratory rate 16, oxygen saturation is 97% on room air. Her CBC showed a mild leukocytosis with a white count of 11.9 but was otherwise unremarkable. Coags were normal. Her BMP was normal. Troponin was 4. CT of her brain shows no acute findings with only chronic involutional changes. CTA of her head and neck showed no LVO and no other abnormal findings. Chest x-ray showed no acute findings. EKG shows normal sinus rhythm with normal intervals and no signs of acute ischemia. She was evaluated by the stroke neurologist in the emergency department who was concerned about acute ischemic stroke versus TIA and wanted the patient admitted for stroke rule out with MRI, lipid profile, hemoglobin A1c, CMP, and CBC with differential. [facility] Medical History (Updated 04/26/22 @ 19:[address] Lyndsay Torres DO) Depression Diabetes History of carcinoma History of TIA (transient ischemic attack) HTN (hypertension) Hyperlipidemia Lung cancer Morbid obesity Obstructive sleep apnea Pneumonia due to COVID-19 virus Home Medications amlodipine 10 mg tablet 5 mg PO DAILY bp 04/26/22 [History Last Taken 04/26/22] aspirin 81 mg capsule 81 mg PO DAILY blood thinner 04/26/22 [History Last Taken 04/26/22] carvedilol 6.25 mg tablet 6.25 mg PO BID bp 04/26/22 [History Last Taken 04/26/22] losartan 100 mg tablet 100 mg PO DAILY bp 04/26/22 [History Last Taken 04/26/22] metformin 500 mg tablet,extended release 24 hr 1,000 mg PO BID diabetes 04/26/22 [History Last Taken 04/26/22] primidone 50 mg tablet 25 mg PO QHS shaking 04/26/22 [History Last Taken 04/25/22] simvastatin 20 mg tablet 20 mg PO DAILY cholesterol 04/26/22 [History Last Taken 04/25/22] Allergy/AdvReac Type Severity Reaction Status Date / Time No Known Allergies Allergy Verified 04/26/22 16:54 Family History (Updated 04/26/22 @ 19:[address] Lyndsay Torres DO) Other Arthritis Cancer Diabetes Heart disease Hypertension Surgical History (Updated 04/26/22 @ 19:[address] Lyndsay Torres DO) H/O arthroscopic knee surgery H/O hand surgery H/O: hysterectomy History of cataract surgery History of lung surgery Hx of tonsillectomy Previous section Social History (Updated 04/26/22 @ 19:[address] Lyndsay Torres DO) household members: spouse housing: house Smoking Status: Never smoker alcohol intake: never substance use type: does not use ROS Constitutional Constitutional: Denies anorexia, change in weight, chills, fatigue, fever(s), malaise, night sweats, weakness or other Eyes Eyes: Denies blurry vision, change in eye color, change in vision, discharge from eye(s), double vision, erythema, eye pain, loss of vision or other ENT HEENT: Denies abnormal hearing, dysphagia, ear pain, epistaxis, headache(s), hearing loss, nasal congestion, nasal discharge, post nasal drip, sinus pressure, sore throat or other Cardiovascular Cardiovascular: Denies chest pain, claudication, dyspnea on exertion, edema, lightheadedness, orthopnea, palpitations, paroxysmal nocturnal dyspnea, rapid heart rate, syncope or other Respiratory/Chest Respiratory/Chest: Denies cough, dyspnea, excessive phlegm production, hemoptysis, productive cough, shortness of breath at rest, shortness of breath with exertion, wheezing or other Gastrointestinal Gastrointestinal: Denies abdominal pain, coffee ground emesis, constipation, diarrhea, dyspepsia, hematemesis, hematochezia, loose stools, melena, nausea, vomiting or other Genitourinary Genitourinary: Denies burning urination, difficulty urinating, dysuria, hematuria, nocturia, urinary frequency, urinary hesitancy, urinary incontinence, urinary urgency or other Musculoskeletal Musculoskeletal: Denies arthralgias, back pain, joint pain, joint stiffness, tanisha nt swelling, myalgias, neck pain or other Neurologic Neurologic: Reports abnormal gait, confusion, focal weakness, numbness, paresthesias and tingling; Denies abnormal speech, disequilibrium, dizziness, headache(s), seizure-like activity, seizures, syncope, tremor(s) or other Psychiatric Psychiatric: Denies anxiety, depression, homicidal ideation, suicidal ideation or other Endocrine Endocrinology: Denies change in body appearance, cold intolerance, excessive sweating, heat intolerance, polydipsia, polyuria or other Hematologic/Lymphatic Hematologic/Lymphatic: Denies anemia, easy bleeding, easy bruising, lymphadenopathy or other Allergic/Immunologic Allergic/Immunologic: Denies rhinitis, hives, eczemia, asthma or other Vital Signs Vital Signs Vital Signs: 04/26/22 16:28 04/26/22 16:30 04/26/22 16:30 Temperature 97.6 F L Temperature Source Temporal Pulse Rate 78 69 Respiratory Rate 16 20 H Blood Pressure 154/88 H 166/65 H Blood Pressure Mean 110 98 Pulse Ox 97 94 94 Oxygen Delivery Method Room Air Room Air Room Air 04/26/22 17:00 04/26/22 17:30 04/26/22 18:10 Temperature Temperature Source Pulse Rate 76 66 73 Respiratory Rate 14 20 H 18 Blood Pressure 165/73 H 144/67 H 172/79 H Blood Pressure Mean 103 92 110 Pulse Ox 92 96 94 Oxygen Delivery Method Room Air Room Air Weight Weight: 122.8 kg Body Mass Index (BMI) 49.5 Results Lab / Micro Data Attestation: I reviewed the patient's lab results. Result Diagrams: 04/26/22 16:55 04/26/22 16:55 Labs: Laboratory Results - last 24 hr 04/26/22 16:46: POC Glucose 95 04/26/22 16:55: WBC 11.9 H, RBC 4.53, Hgb 12.8, Hct 38.8, MCV 85.7, MCH 28.3, MCHC 33.0, RDW Std Deviation 46.3 H, RDW Coeff of Erica 14.7 H, Plt Count 321, MPV 9.5, Immature Gran % (Auto) 0.400, Neut % (Auto) 70.9 H, Lymph % (Auto) 16.8 L, Johnson % (Auto) 8.9, Eos % (Auto) 2.5, Baso % (Auto) 0.5, Absolute Neuts (auto) 8.4 H, Absolute Lymphs (auto) 1.99, Nucleated RBC % 0 04/26/22 16:55: PT 13.6, INR 1.1, APTT 23.7 L 04/26/22 16:55: Sodium 137, Potassium 3.7, Chloride 103, Carbon Dioxide 24.0, Anion Gap 10, BUN 13, Creatinine 0.87, Estim Creat Clear Calc 47.59, Est GFR (MDRD) Af Amer 83, Est GFR (MDRD) Non-Af 69, BUN/Creatinine Ratio 15.0, Glucose 98, Calcium 9.1, Troponin I High Sens 4 Rhythm Strip Rhythm Strip: Sinus Rhythm Rate: 75 Ectopy: None Radiology Impression Brain CT 04/26/22 16:30 IMPRESSION: There are no acute findings. Chronic involutional changes of the brain.Critical finding called and case discussed. Electronically Signed: Apolinar Giullermo MD at 16:46 EDT , ADDENDUM: 04/26/22 [id number] IMPRESSION: There are no acute findings. Chronic involutional changes of the brain.Critical finding called and case discussed. N.B. : The above Results were Read Back by Apolinar Guillermo MD to Blair Smart MD, and understanding confirmed on 04/26/2022 16:51:26 (ET). Electronically Signed: Apolinar Guillermo MD at 16:46 EDT , Head/Neck CTA 04/26/22 16:30 IMPRESSION: 1. There are no acute findings of the nikolai of [place] without a demonstrated aneurysm or hemodynamically significant stenosis. ALL ABOVE CRITERIA BY NASCET. 2. There are no acute findings of the right and left internal carotid artery. ALL ABOVE CRITERIA BY NASCET. Electronically Signed: Apolinar Guillermo MD at 17:09 EDT , ADDENDUM: 04/26/22 1720 IMPRESSION: 1. There are no acute findings of the nikolai of [place] without a demonstrated aneurysm or hemodynamically significant stenosis. ALL ABOVE CRITERIA BY NASCET. 2. There are no acute findings of the right and left internal carotid artery. ALL ABOVE CRITERIA BY NASCET. N.B. : The above Results were Read Back by Apolinar Guillermo MD to Blair Smart MD, , and understanding confirmed on 04/26/2022 17:13:58 (ET). Electronically Signed: Apolinar Guillermo MD at 17:09 EDT , Chest X-Ray 04/26/22 17:07 IMPRESSION: There are no acute findings. Electronically Signed: Apolinar Guillermo MD at 17:52 EDT , Assessment & Plan Assessment/Plan (1) Acute headache: (2) Altered mental status: (3) Left-sided weakness: (4) Left-sided sensory deficit present: PLAN: Plan Left-sided weakness/tingling and numbness -CT head negative -CTA without LVO -Check MRI to rule out stroke -Check echocardiogram -Check lipids -Check hemoglobin A1c -Continue home aspirin -Hold antihypertensives except carvedilol to allow for permissive hypertension -Pre-MRI Ativan 1 mg ordered -PT/OT consultations -Bedside swallow eval Transient acute mental status change -We will check EEG -Currently is at baseline Hypertension -We will allow for permissive hypertension -We will continue home carvedilol -Hold home losartan -Hold home amlodipine Hyperlipidemia -Continue simvastatin -Check lipids DM-2 -Check hemoglobin A1c -Hold home metformin -Subcu sliding scale insulin -Accu-Cheks JAJA -Continue home BiPAP History of lung cancer -No current issues Morbid obesity -BMI 49.5 -Recommend weight loss -Complicates treatment, prognosis, outcomes DVT prophylaxis -Lovenox -SCDs CODE STATUS -DNR CCA no intubation as per discussion the emergency department with family present prior to admission Charges/Coding Visit Charges Inpatient E&M: 82235 Init Hosp L3
[2022-04-26 20:33] LABS: Hemoglobin A1c 6.3 % (3.8-5.6)
[2022-04-26] MEDS: Primidone 50 MG Tablet 25 MG PO (22:00)
[2022-04-26] MEDS: Atorvastatin Calcium 10 MG Tablet PO (22:00)
[2022-04-26] MEDS: Carvedilol 6.25 MG Tablet PO (22:00)
[2022-04-26] MEDS: Acetaminophen 325 MG Tablet 650 MG PO (22:09)
[2022-04-26 22:21] LABS: Bedside Glucose 110 mg/dL (74-106)
[2022-04-27] VITALS (16 sets, daily range): BP systolic 131–164; BP diastolic 62–75; PULSE 55–85; RESP 12–27; TEMP 36.3–36.6; O2SAT 90–97; BMI 48.4
--- NOTE | 2022-04-27 04:52 | CPS ---
increased 13/7 to get tidal volume up. was only 300cc over 400s with slight increase in pressure
[2022-04-27 05:41] LABS: Basophil# 0.05 X10^3/uL; Basophil% 0.5 % (0-1); Eosinophil# 0.25 X10^3/uL; Eosinophils% 2.5 % (0-5); Hemoglobin 12.3 g/dL (12.0-15.0); Lymphocyte % 27.4 % (19-41); Mean Corp Hgb Conc 32.4 g/dL (32-36); Mean Corpuscular Hgb 27.8 pg (27.0-32.0); Mean Corpuscular Volume 85.8 fL (81-99); Mean Platelet Vol. 9.8 fl (6.2-12.0); Monocyte# 0.86 X10^3/uL; Monocyte% 8.7 % (0-10); NRBC Flagged by Analyzer 0 % (0-5); Neutrophil # 5.96 X10^3/uL (2.7-7.7); Neutrophil % 60.6 % (47-70); Platelet Count 325 K/mm3 (150-450); RBC Distribution Width CV 14.8 % (11.6-14.6); RBC Distribution Width SD 46.5 fl (35.1-43.9); Red Blood Count 4.43 M/mm3 (4.2-5.4); White Blood Count 9.9 K/mm3 (4.4-11.0)
--- NOTE | 2022-04-27 05:55 | ECHOCS_ITS ---
Reason For Study: TIA/CVA Procedure This was a 2D Doppler, Color Flow transthoracic echocardiogram. The study was technically difficult. Contrast injection was performed. Exam performed portable in patient room. Left Ventricle Based upon the 2D echocardiographic and contrast enhanced images obtained there appears to be grossly normal left ventricular size, wall motion, and systolic function. The estimated ejection fraction is 65 %. Normal diastology for age. Right Ventricle Normal RV size. Normal systolic function. Atria Normal left atrium. Normal right atrium. No doppler evidence for ASD. Bubble contrast study negative for right to left interatrial shunt. Mitral Valve There is mild mitral annular calcification. Extension of the mitral annular calcification onto the base of the posterior mitral valve leaflet. Tricuspid Valve Normal tricuspid valve. Aortic Valve Trisinus/trileaflet aortic valve. Normal aortic valve. Pulmonic Valve The pulmonic valve is not well visualized. Great Vessels The aortic root is not well visualized. Pericardium/Pleural No pericardial effusion. Medication Diluted definity 3ml given slow IV push to enhance endocardial definition. Performed a rapid injection of agitated mix of 9 cc saline and 1cc air to assess for atrial septal defect. MMode/2D Measurements & Calculations LVIDd: 5.5 cm IVSd: 1.2 cm LA dimension: 3.7 cm LVIDs: 3.7 cm LVPWd: 1.2 cm FS: 32.9 % LAV(MOD-bp): 44.5 ml LA A4 area: 19.4 cm2 LAV(MOD-bp) Indexed: 20.7 ml/m2 LAV(MOD-sp2): 35.0 ml LAV(MOD-sp4): 53.2 ml Time Measurements MV dec time: 0.25 sec Doppler Measurements & Calculations MV E max sanju: 68.9 cm/sec MV V2 max: 110.3 cm/sec MV P1/2t max sanju: 107.1 cm/sec MV A max sanju: 86.3 cm/sec MV max P.9 mmHg MV P1/2t: 102.4 msec MV E/A: 0.80 MV V2 mean: 67.6 cm/sec MV dec slope: 306.5 cm/sec2 MV mean P.2 mmHg MV V2 VTI: 28.8 cm MVA(P1/2t): 2.1 cm2 Ao V2 max: 163.1 cm/sec LV V1 max: 124.4 cm/sec PA V2 max: 122.4 cm/sec Ao max P.6 mmHg LV V1 max P.2 mmHg PA V2 mean: 81.7 cm/sec LV V1 mean P.3 mmHg LV V1 mean: 84.7 cm/sec LV V1 VTI: 29.5 cm ECHO/Echo Complete W/ Contrast Interpretation Summary The study was technically difficult. Contrast injection was performed. Based upon the 2D echocardiographic and contrast enhanced images obtained there appears to be grossly normal left ventricular size, wall motion, and systolic function. The estimated ejection fraction is 65 %. There is mild mitral annular calcification. Extension of the mitral annular calcification onto the base of the posterior mi tral valve leaflet. Bubble contrast study negative for right to left interatrial shunt. Ordering Physician: Lyndsay Torres Referring Physician: Mauricio Valenzuela Performed By: Zoltan Saldana RCS
[2022-04-27 06:31] LABS: ALB/GLOB Ratio 0.8 RATIO (0.9-2.4); AST(SGOT) 17 U/L (15-37); Alanine Aminotransfer ALT/SGPT 26 U/L (13-56); Albumin, Serum 3.2 g/dL (3.2-5.0); Alkaline Phosphatase 66 U/L (45-117); Anion Gap 8 (5-15); BUN 12 mg/dL (7-18); Calcium,Total 8.6 mg/dL (8.5-10.1); Chloride 103 mmol/L (98-107); Cholesterol 154 mg/dL (200); Creatinine, Serum 0.92 mg/dL (0.55-1.02); EST Glomerular Filtration Rate 64 mL/min (>60); Est Glom Filt Rate - Afr Amer 77 mL/min (>60); Globulin 4.1 g/dL (2.2-4.2); Glucose 111 mg/dL (74-106); High Density Lipoprotein 66 mg/dL; Magnesium 1.9 mg/dL (1.6-2.6); Phosphorus 4.1 mg/dL (2.5-4.9); Potassium 3.3 mmol/L (3.5-5.1); Protein, Total 7.3 g/dL (6.4-8.2); Sodium Level 138 mmol/L (136-145); Thyroid Stim Hormone (TSH) 4.13 uIU/mL (0.358-3.74); Triglycerides 141 mg/dL; Very Low Density Lipoprotein 28 mg/dL (5-40)
[2022-04-27 06:55] LABS: Bedside Glucose 124 mg/dL (74-106)
--- NOTE | 2022-04-27 08:25 | TELEMED_ITS ---
[facility] Telemed has confirmed receipt of a request for visit. This document confirms receipt of the order initiating the consult. To find the results of the consultation, please view the patient's reports for the scanned Telemed Consult.
[2022-04-27] MEDS: Carvedilol 6.25 MG Tablet PO ×2 (09:13→21:25)
[2022-04-27] MEDS: Enoxaparin 40 MG/0.4 ML Syringe SC (09:13)
[2022-04-27] MEDS: Aspirin 81 MG TAB.CHEW PO (09:13)
[2022-04-27] MEDS: Potassium Chloride Oral Tablet 20 MEQ 40 MEQ PO (09:14)
--- NOTE | 2022-04-27 10:12 | CASEMGMT ---
Patient has a Healthcare Power of Agriculture Instructor and a Healthcare Living Will in e-chart, but not in [employer]. TIERRA printed documents and placed them in patient's chart. Patient's Jose Enrique is her Healthcare Power of Agriculture Instructor. Thi Andrews AIRWORTHINESS INSPECTOR [employer]
[2022-04-27] MEDS: LORazepam 1 MG Tablet PO (11:06)
--- NOTE | 2022-04-27 11:10 | CASEMGMT ---
RN CM Face to Face with patient for initial transition planning/care coordination assessment. RN CM introduced self and role at [facility]. Patient lying in bed, alert and oriented, daughter at bedside. Patient willing to participate in assessment and is able to answer all questions appropriately. Care providers, pharmacy, and demographics verified. Patient wishes to discharge home, denies need for home health at this time. Patient states she has no further needs or concerns at this time. CM to follow for discharge planning needs that may arise. PCP: Bianca Specialists: Aimee Zheng, log hauler; Kelton, oncologist Preferred Pharmacy: [facility]andra Rousseau; [facility] at discharge. Insurance: [facility], MMO Prescription Benefit: yes Living Will/HPOA: yes, Jose Enrique Jiménez LNOK: , daughter Living Arrangements: Patient lives with in a single story home with 4-7 steps with railing to enter the home. Patient states she is independent at home. Transportation: self, , daughter DME/HHC: Patient has cane, wlaker, rollator, built in shower seat, nebulizer, pulse ox, bipap, home oxygen through [employer] 2-4 liters as needed with portability, an pulse ox at home. Patient has had [facility] in the past. Disposition Plan: Patient to discharge home with family support and follow-up plans in place. Tsering DODD, RN, CM
[2022-04-27 11:30] LABS: Bedside Glucose 118 mg/dL (74-106)
--- NOTE | 2022-04-27 12:07 | MRI_ITS ---
STUDY: MRI BRAIN WITHOUT CONTRAST REASON FOR EXAM: Female, 71 years old. stroke LEFT WEAKNESS,HEADACHE X 1 DAY. FALL.HX OF LUNG CANCER AND UTERINE CANCER. CT BRAIN 04/26/22 AND CTA HEAD/NECK 04/26/22 TECHNIQUE: Standardized multiplanar fat and water weighted pulse sequences were obtained. COMPARISON: Head CT dated April 26, 2022 FINDINGS: Normal size of the ventricles and extra-axial spaces for the patient''s age. There are a limited number of small white matter hyperintensities, distributed throughout the deep white matter tracts of the cerebral hemispheres, consistent with mild chronic white matter ischemic changes. There is no evidence for recent intracranial ischemia or other cause of cytotoxic edema on diffusion weighted imaging (DWI). Normal T2* images of the brain without demonstrated susceptibility artifact. There is no demonstrated hemosiderin stain. A small cyst is seen in the scalp tissues in the apex/top of the skull. Normal bilateral basal ganglia. Normal thalami. There is no extra-axial fluid accumulation. Normal flow voids within the major intracranial circulation suggesting patency by spin echo criteria. Normal sella turcica, pituitary gland, infundibular stalk, optic chiasm and hypothalamus. Normal tectal plate and pineal gland. Normal midbrain, elias and medulla. Normal cerebellum. Normal basal cisterns. Normal bilateral temporal bones. Normal bilateral internal auditory canals. No demonstrated orbital abnormality, within the constraints of a routine brain study. Normal visualized paranasal sinuses. Normal calvarium and skull base. Normal visualized soft tissue structures. Normal visualized upper cervical spine. MRI/Brain without Contrast IMPRESSION: 1. Chronic ischemic and involutional changes of the brain, as described above. 2. No demonstrated acute infarct or intracranial hemorrhage Electronically Signed: Marquez Gupta MD at 14:10 EDT Reading Location ID and State: [facility] / [place] , Service support ,
--- NOTE | 2022-04-27 15:00 | PCM.PN.HOSP ---
Documented by User: Patsy Gutierrez NP-C 04/27/22 15:06 Subjective Subjective Patient seen and examined. Patient states that she still has a headache and some weakness however patient states that her weakness is getting worse than her baseline Objective Data Objective Data Vital Signs: Vital Signs Temp Pulse Resp BP Pulse Ox O2 Del Method O2 Flow Rate 97.9 F 70 18 138/72 H 93 Room Air 2 04/27/22 14:00 04/27/22 14:00 04/27/22 14:00 04/27/22 14:00 04/27/22 14:00 04/27/22 14:00 04/27/22 12:40 FiO2 25 04/27/22 02:51 Oxygen Flow Rate (L/min) 2 Oxygen Delivery Method Room Air Weight: 264 lb 15.93 oz Body Mass Index (BMI) 48.4 Intake & Output: Intake and Output for Last 24 Hours 04/25/22 04/26/22 04/27/22 23:59 23:59 23:59 Intake Total 630 / 630 Balance 630 / 630 Lab / Micro Data Result Diagrams: 04/27/22 05:19 04/27/22 05:19 Labs: Laboratory Results - last 24 hr 04/26/22 16:46: POC Glucose 95 04/26/22 16:55: WBC 11.9 H, RBC 4.53, Hgb 12.8, Hct 38.8, MCV 85.7, MCH 28.3, MCHC 33.0, RDW Std Deviation 46.3 H, RDW Coeff of Erica 14.7 H, Plt Count 321, MPV 9.5, Immature Gran % (Auto) 0.400, Neut % (Auto) 70.9 H, Lymph % (Auto) 16.8 L, Martin % (Auto) 8.9, Eos % (Auto) 2.5, Baso % (Auto) 0.5, Absolute Neuts (auto) 8.4 H, Absolute Lymphs (auto) 1.99, Nucleated RBC % 0 04/26/22 16:55: PT 13.6, INR 1.1, APTT 23.7 L 04/26/22 16:55: Sodium 137, Potassium 3.7, Chloride 103, Carbon Dioxide 24.0, Anion Gap 10, BUN 13, Creatinine 0.87, Estim Creat Clear Calc 47.59, Est GFR (MDRD) Af Amer 83, Est GFR (MDRD) Non-Af 69, BUN/Creatinine Ratio 15.0, Glucose 98, Calcium 9.1, Troponin I High Sens 4 04/26/22 19:30: Hemoglobin A1c 6.3 H 04/26/22 21:59: POC Glucose 110 H 04/27/22 05:19: WBC 9.9, RBC 4.43, Hgb 12.3, Hct 38.0, MCV 85.8, MCH 27.8, MCHC 32.4, RDW Std Deviation 46.5 H, RDW Coeff of Erica 14.8 H, Plt Count 325, MPV 9.8, Immature Gran % (Auto) 0.300, Neut % (Auto) 60.6, Lymph % (Auto) 27.4, Martin % (Auto) 8.7, Eos % (Auto) 2.5, Baso % (Auto) 0.5, Absolute Neuts (auto) 6.0, Absolute Lymphs (auto) 2.70, Nucleated RBC % 0 04/27/22 05:19: Sodium 138, Potassium 3.3 L, Chloride 103, Carbon Dioxide 27.0, Anion Gap 8, BUN 12, Creatinine 0.92, Estim Creat Clear Calc 45.00, Est GFR (MDRD) Af Amer 77, Est GFR (MDRD) Non-Af 64, BUN/Creatinine Ratio 13.0, Glucose 111 H, Calcium 8.6, Phosphorus 4.1, Magnesium 1.9, Total Bilirubin 0.90, AST 17, ALT 26, Alkaline Phosphatase 66, Total Protein 7.3, Albumin 3.2, Globulin 4.1, Albumin/Globulin Ratio 0.8 L, Triglycerides 141, Cholesterol 154, LDL Cholesterol 60, VLDL Cholesterol 28, HDL Cholesterol 66, TSH 4.13 H 04/27/22 06:24: POC Glucose 124 H 04/27/22 11:05: POC Glucose 118 H Radiography Diagnostic Testing: Radiology Impression Brain CT 04/26/22 16:30 IMPRESSION: There are no acute findings. Chronic involutional changes of the brain.Critical finding called and case discussed. Electronically Signed: Apolinar Guillermo MD at 16:46 EDT , ADDENDUM: 04/26/22 1658 IMPRESSION: There are no acute findings. Chronic involutional changes of the brain.Critical finding called and case discussed. N.B. : The above Results were Read Back by Apolinar Guillermo MD to Blair Smart MD, and understanding confirmed on 04/26/2022 16:51:26 (ET). Electronically Signed: Apolinar Guillermo MD at 16:46 EDT , Head/Neck CTA 04/26/22 16:30 IMPRESSION: 1. There are no acute findings of the [place] without a demonstrated aneurysm or hemodynamically significant stenosis. ALL ABOVE CRITERIA BY NASCET. 2. There are no acute findings of the right and left internal carotid artery. ALL ABOVE CRITERIA BY NASCET. Electronically Signed: Apolinar Guillermo MD at 17:09 EDT , ADDENDUM: 04/26/22 1720 IMPRESSION: 1. There are no acute findings of the [place] without a demonstrated aneurysm or hemodynamically significant stenosis. ALL ABOVE CRITERIA BY NASCET. 2. There are no acute findings of the right and left internal carotid artery. ALL ABOVE CRITERIA BY NASCET. N.B. : The above Results were Read Back by Apolinar Guillermo MD to Blair Smart MD, MD, and understanding confirmed on 04/26/2022 17:13:58 (ET). Electronically Signed: Apolinar Guillermo MD at 17:09 EDT , Chest X-Ray 04/26/22 17:07 IMPRESSION: There are no acute findings. Electronically Signed: Apolinar Guillermo MD at 17:52 EDT , Brain CT 04/26/22 18:48 IMPRESSION: Chronic involutional changes of the brain. Critical finding called and case discussed. Electronically Signed: Apolinar Guillermo MD at 19:46 EDT , ADDENDUM: 04/26/221958 IMPRESSION: Chronic involutional changes of the brain. Critical finding called and case discussed. N.B. : The above Results were Read Back by Apolinar Guillermo MD to Blair Geiger MD, and understanding confirmed on 04/26/2022 19:52:23 (ET). Electronically Signed: Apolinar Guillermo MD at 19:46 EDT , Echocardiogram 04/27/22 05:55 Interpretation Summary The study was technically difficult. Contrast injection was performed. Based upon the 2D echocardiographic and contrast enhanced images obtained there appears to be grossly normal left ventricular size, wall motion, and systolic function. The estimated ejection fraction is 65 %. There is mild mitral annular calcification. Extension of the mitral annular calcification onto the base of the posterior mitral valve leaflet. Bubble contrast study negative for right to left interatrial shunt. Ordering Physician: Lyndsay Torres Referring Physician: Mauricio Valenzuela Performed By: Zoltan Saldana RCS Brain MRI 04/27/22 12:07 IMPRESSION: 1. Chronic ischemic and involutional changes of the brain, as described above. 2. No demonstrated acute infarct or intracranial hemorrhage Electronically Signed: Marquez Gupta MD at 14:10 EDT Reading Location ID and State: [address] [place] [address] , Service support , Rhythm Strip Rhythm Strip: Sinus Rhythm Rate: 75 Ectopy: None Physical Exam Const alert, oriented x3 and no apparent distress HEENT head/scalp atraumatic and moist oral mucous membranes Eyes conjunctivae normal and no scleral icterus Neck no lymphadenopathy and supple Resp normal respiratory effort and clear to auscultation bilaterally Cardio regular rate, regular rhythm, S1 normal heart sound and S2 normal heart sound GI normal to inspection, nondistended, normoactive bowel sounds, soft to palpation and non-tender Extremity normal to inspection and full ROM Neuro oriented x3 Neuro Narrative: Patient has continued left-sided weakness and continues to report headache Assessment & Plan Assessment/Plan (1) Acute headache: (2) Left-sided weakness: (3) Left-sided sensory deficit present: PLAN: Plan 1. Acute headache with left-sided weakness and left-sided sensory deficit -MRI negative for acute findings -Patient continues to have weakness however patient has residual weakness from prior stroke and it is unknown how much worse her weakness is currently -Patient also continues to report headache -SOC consulted -Echocardiogram demonstrates EF 65% bubble contrast study negative for [id number] intra-atrial shunt -EEG was normal 2. Hypokalemia -Potassium chloride 40 mEq p.o. x1 ordered -BMP daily 3. Hypertension -Continue patient's home medication regimen including amlodipine, carvedilol, losartan. -Vital signs per protocol, currently stable 3. Tremors -Continue primidone 4. Hyperlipidemia -Continue simvastatin DVT prophylaxis-subcu Lovenox This patient was seen by RAUL Santoyo under the supervision of Dr. Alberto. 12 minutes spent in clinical coordination of patient's plan of care. Documented by User: Dr. Panchito Alberto DO 04/27/22 15:29 Objective Data Lab / Micro Data Result Diagrams: 04/27/22 05:19 04/27/22 05:19 Assessment & Plan Assessment/Plan (1) Acute headache: (2) Left-sided weakness: (3) Left-sided sensory deficit present: Charges/Coding Addendum Addendum: Patient seen and examined independently. Data and vitals reviewed. I agree with the above note by the nurse practitioner. Still with left-sided weakness. Patient previously had a stroke that caused her to have left-sided weakness but that pretty much went all the way. Began experiencing increasing left-sided weakness yesterday. No acute stress and afebrile. Heart rate regular rate and rhythm plus S1-S2 with a murmurs Rubs. Lungs Are Clear to Auscultation Bilaterally. Abdomen Is Obese but Soft Nontender Nondistended Normal Bowel Sounds. Neurologic: Muscle Strength Is 5-5 in the Right Upper and Right Lower Extremity and a 4-5 in the Left Upper and Left Lower Extremity. Sensations Grossly Intact. Assessment and plan 1. Left-sided weakness: Patient has had a stroke that has caused her have left-sided weakness. MRI shows no acute process. EEG was negative. Will consult [facility] telemetry neurology for further recommendations. Patient was having a headache initially but that headache is since resolved so I don't feel that this is an atypical migraine Greater than 20 minutes spent discussing with the patient, reviewing data and documentation. Visit Charges Inpatient E&M: 71750 Subs Hosp L3
--- NOTE | 2022-04-27 15:38 | CASEMGMT ---
Social Work Sw in to meet with pt and conduct a PHQ9 assessment. Pt laying in bed, sleeping but woke upon SW entering the room. Pt agreeable to answering questions. Pt oriented x3 and answering questions well. Pt scored a 1 out of 20, indicating mild depression. Pt did indicate during several questions that she has dealt with depression previous to her current hospital stay. 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 SW discussed with pt mood changes and offered counseling resources. Pt accepted the resources hesitantly and stated she would likely not use them. SW encouraged pt to reach out if she needs assistance. BALTAZAR Fitch
--- NOTE | 2022-04-27 15:52 | CHAPLAIN ---
Type of Pastoral Visit _x__ Initial Visit ___ Follow-up Visit ___ On-call Visit ___ General Patient Visit ___ Spiritual Assessment ___ Family Conference ___ Bereavement ___ Rapid Response ___ Code Blue ___ Other (describe below) Pastoral Care Referral From _x__ Patient ___ Family ___ Nurse ___ Physician ___ Branch Or Department Chief Librarian ___ Janitorial Account Manager ___ Other (describe below) Sacrament/Intervention _x__ Active listening ___ Anointing ___ Yarsanism ___ Bereavement ___ Communion ___ Amy exploration ___ _x__ Life review _x__ Prayer ___ Reconciliation ___ Sacrament of Sick _x__ Supportive presence ___ Wedding ___ Other (describe below) Pastoral Comments patient reviews briefly a six year journey of health needs; pt reports feeling better and just waiting on the next thing or testing results to be given; daughter is with pt in the room for support; pt reports goal is to go home today if possible; pt welcomes presence and prayer and states that is all I need right now
[2022-04-27 17:15] LABS: Bedside Glucose 112 mg/dL (74-106)
[2022-04-27 17:57] LABS: Erythrocyte Sedimentation Rate 37 mm/hr (0-30)
--- NOTE | 2022-04-27 19:10 | MRI_ITS ---
STUDY: MRI CERVICAL SPINE REASON FOR EXAM: Female, 71 years old. Headache, weakness, left-sided weakness and numbness. TECHNIQUE: Standardized fat and water weighted pulse sequences were obtained in the sagittal and axial following administration of IV 24ML CLARISCAN. COMPARISON: None FINDINGS: Vertebral bodies and alignment: 1. Vertebral body height and alignment are maintained. No evidence of marrow edema, fracture or subluxation. 2. Prevertebral soft tissue planes have normal appearance. 3. Normal appearance the odontoid process and alignment of the craniocervical junction. 4. Normal appearance the posterior muscular fascial planes of the cervical spine, and the posterior ligamentous support structure the cervical spine is intact. 5. Diffusely narrow canal is noted which can be seen in the setting of congenital short pedicles. Intervertebral disc levels: C2-3: No evidence disc herniation. There is mild narrowing of the RIGHT neural foramen due to uncovertebral joint hypertrophic changes. No ponce nerve root impingement. C3-4: Disc desiccation, minimal broad-based disc bulge, no evidence of disc herniation canal stenosis. Mild RIGHT foraminal narrowing due to facet and uncovertebral joint hypertrophic changes. C4-5: Disc desiccation, broad-based disc bulge without evidence of disc herniation. Mild narrowing of neural foramina bilaterally due to facet and uncovertebral joint hypertrophic changes greater on the LEFT than RIGHT. C5-6: Disc desiccation, broad-based posterior disc bulge, no evidence focal canal stenosis. Mild bilateral foraminal narrowing greater on the RIGHT than LEFT due to facet and uncovertebral joint changes. C6-7: No evidence of disc herniation or canal stenosis. Bilateral foraminal narrowing greater on the LEFT than RIGHT. C7-T1: No evidence of disc herniation canal stenosis. Moderate to severe RIGHT foraminal narrowing due to facet and uncovertebral joint changes. Spinal CORD: There is normal appearance the spinal cord. No intramedullary signal abnormality, masses or syrinx. Normal appearance of the cervical medullary junction. No evidence cord compression. No areas of abnormal contrast enhancement. MRI/Spine Cervical W/WO Contrast IMPRESSION: 1. Diffusely narrow canal which can be seen in the setting of congenitally short pedicles. 2. No evidence however of acute disc herniations or acutely acquired canal stenosis or cord compression. 3. Multilevel foraminal narrowing contributed by facet and vertebral joint hypertrophic changes as detailed. 4. Normal appearance of the spinal cord, no evidence of intradural or intramedullary signal or contrast abnormality. No evidence of demyelinating processes. Electronically Signed: Orlando Hansen MD at 21:10 EDT ,
--- NOTE | 2022-04-27 19:55 | MRI_ITS ---
INDICATION: Headache, abnormal CT -- C+ BRAIN ,,, C- DONE 04/28 VO FROM [facility] EXAMINATION: MRI - MR Brain W/ Contrast TECHNIQUE: Multiplanar postcontrast T1 imaging. Contrast: 24 mL Clariscan COMPARISON: CT examination of 04/26/2022 FINDINGS: HEMISPHERES, CEREBELLUM AND BRAINSTEM: 1. The cerebral parenchyma, ventricular system, subarachnoid spaces have normal configuration and density. There is a normal gyral pattern. There is normal alberto/white differentiation. No midline shift.. 2. Hemispheric white matter is not adequately evaluated on limited T1 imaging. There is a area of remote infarct involving the RIGHT mariano radiata. 3. No areas of abnormal contrast enhancement. 4. The cerebellum, brainstem, basilar and suprasellar cisterns have normal appearance. No Chiari malformation. PITUITARY: Infundibulum and pituitary have normal configuration. Midline structures appear normal. CSF SPACES: Appropriate for age. No hydrocephalus. Basal cisterns are patent. VESSELS: 1. There are normal flow voids noted in the great vessels at the skull base ORBITS AND PARANASAL SINUSES: 1. Both globes, extraocular muscles, optic nerves and retrobulbar fat appear unremarkable. 2. Paranasal sinuses are clear. BONY ELEMENTS: Bony elements of the cranial vault, facial skeleton and skull base have normal appearance. SCALP AND SOFT TISSUES: There is subcutaneous nodule consistent with sebaceous cyst along the vertex of the scalp. OTHER: None MRI/Brain WITH Contrast IMPRESSION: 1. Small focal remote lacunar infarct involving the RIGHT mariano radiata. 2. No mass or mass effect noted. 3. No areas of abnormal contrast enhancement. Electronically Signed: Orlando Hansen MD at 20:54 EDT ,
[2022-04-27] MEDS: Atorvastatin Calcium 10 MG Tablet PO (21:25)
[2022-04-27] MEDS: Primidone 50 MG Tablet 25 MG PO (21:25)
[2022-04-28] VITALS (7 sets, daily range): BP systolic 131–156; BP diastolic 62–81; PULSE 57–76; RESP 12–24; TEMP 36.3–36.6; O2SAT 92–95
[2022-04-28 06:25] LABS: Absolute Lymphocyte Count 1.95 X10^3/uL (0.83-4.51); Absolute Neutrophil Count 5.9 X10^3/uL (2.0-7.7); Basophil# 0.04 X10^3/uL; Basophil% 0.4 % (0-1); Eosinophil# 0.26 X10^3/uL; Eosinophils% 2.8 % (0-5); Hematocrit 37.6 % (37-47); Hemoglobin 12.2 g/dL (12.0-15.0); Lymphocyte # 1.95 X10^3/ul (0.83-4.51); Lymphocyte % 21.3 % (19-41); Mean Corp Hgb Conc 32.4 g/dL (32-36); Mean Corpuscular Hgb 27.8 pg (27.0-32.0); Mean Corpuscular Volume 85.6 fL (81-99); Mean Platelet Vol. 9.9 fl (6.2-12.0); Monocyte# 0.99 X10^3/uL; Monocyte% 10.8 % (0-10); NRBC Flagged by Analyzer 0 % (0-5); Neutrophil % 64.4 % (47-70); Platelet Count 311 K/mm3 (150-450); RBC Distribution Width CV 14.7 % (11.6-14.6); RBC Distribution Width SD 46.4 fl (35.1-43.9); Red Blood Count 4.39 M/mm3 (4.2-5.4); White Blood Count 9.2 K/mm3 (4.4-11.0)
[2022-04-28 06:50] LABS: Bedside Glucose 115 mg/dL (74-106)
[2022-04-28 07:15] LABS: ALB/GLOB Ratio 0.8 RATIO (0.9-2.4); AST(SGOT) 19 U/L (15-37); Alanine Aminotransfer ALT/SGPT 25 U/L (13-56); Albumin, Serum 3.1 g/dL (3.2-5.0); Alkaline Phosphatase 66 U/L (45-117); Anion Gap 8 (5-15); BUN 14 mg/dL (7-18); BUN/Creat Ratio 19.3 RATIO (10-20); Calcium,Total 8.8 mg/dL (8.5-10.1); Chloride 104 mmol/L (98-107); Creatinine, Serum 0.73 mg/dL (0.55-1.02); EST Glomerular Filtration Rate 84 mL/min (>60); Est Glom Filt Rate - Afr Amer 102 mL/min (>60); Globulin 4.1 g/dL (2.2-4.2); Glucose 120 mg/dL (74-106); Potassium 3.7 mmol/L (3.5-5.1); Protein, Total 7.2 g/dL (6.4-8.2); Sodium Level 139 mmol/L (136-145)
[2022-04-28] MEDS: Aspirin 81 MG TAB.CHEW PO (07:25)
[2022-04-28] MEDS: Carvedilol 6.25 MG Tablet PO (09:10)
[2022-04-28] MEDS: Enoxaparin 40 MG/0.4 ML Syringe SC (09:10)
--- NOTE | 2022-04-28 10:53 | DCINST_ITS ---
Discharge Instructions Diet Discharge Diet: Low fat / Low cholesterol and 1800 Calorie Control Diet Activity Discharge Activity: Return to Normal Activity and Use Walker Dressing / Incision Call your doctor if you observe: Numbness or Tingling, Dizziness and - (Headaches) Follow Up Care Test Results: Test results from this visit will be discussed in further detail at your follow- up appointment, if applicable. Discharge Plan Admission Admit Date/Time: 04/26/22 18:49 Primary Reason for Your Visit: Stroke Attending Provider: Panchito Alberto Primary Care Provider: Les Valenzuela Consulting Providers: Lyndsay Torres Discharge Orders/Prescriptions Prescriptions: New clopidogrel [Plavix] 75 mg tablet 75 mg PO DAILY Qty: 21 0RF Continued primidone 50 mg tablet 25 mg PO QHS Label Comments: TAKE 1/2 (ONE-HALF) TABLET BY MOUTH ONCE DAILY AT BEDTIME carvedilol 6.25 mg tablet 6.25 mg PO BID Label Comments: TAKE 1 TABLET BY MOUTH TWICE DAILY WITH MEALS amlodipine 10 mg tablet 5 mg PO DAILY Label Comments: TAKE 1 TABLET BY MOUTH ONCE DAILY simvastatin 20 mg tablet 20 mg PO DAILY Label Comments: TAKE 1 TABLET BY MOUTH ONCE DAILY AT BEDTIME losartan 100 mg tablet 100 mg PO DAILY Label Comments: TAKE 1 TABLET BY MOUTH ONCE DAILY metformin 500 mg tablet extended release 24 hr 1,000 mg PO BID Label Comments: TAKE 2 TABLETS BY MOUTH TWICE DAILY BEFORE MEAL(S) aspirin 81 mg Capsule 81 mg PO DAILY Referrals / Follow Up: Les Valenzuela MD [Primary Care Provider] - Within 2 Weeks Manoj Adam MD [Non-Staff] - Within 2 Weeks NOT,DEFINED [Non-Staff] - Disposition Disposition (needs filled in before D/C Order can be placed): Home, Self Care
--- NOTE | 2022-04-28 10:59 | DS.PCM_ITS ---
Documented by User: RAUL Santoyo 04/28/22 11:14 Providers Date of Admission: 04/26/22 Date of Discharge: 04/28/22 Primary Care Physician: Dr. Les Valenzuela MD Reason For Visit: STROKE Diagnosis Discharge Diagnosis (1) Acute headache: Status: Acute Code(s): R51.9 - Headache, unspecified (2) Left-sided weakness: Status: Acute Code(s): R53.1 - Weakness (3) Left-sided sensory deficit present: Status: Acute Code(s): R44.9 - Unspecified symptoms and signs involving general sensations and perceptions Plan 1. Acute headache with left-sided weakness and left-sided sensory deficit -MRI negative for acute findings -Patient continues to have weakness however patient has residual weakness from prior stroke and it is unknown how much worse her weakness is currently -Patient also continues to report headache -SOC consulted -Echocardiogram demonstrates EF 65% bubble contrast study negative for [id number] intra-atrial shunt -EEG was normal 2. Hypokalemia -Potassium chloride 40 mEq p.o. x1 ordered -BMP daily 3. Hypertension -Continue patient's home medication regimen including amlodipine, carvedilol, losartan. -Vital signs per protocol, currently stable 3. Tremors -Continue primidone 4. Hyperlipidemia -Continue simvastatin DVT prophylaxis-subcu Lovenox This patient was seen by RAUL Santoyo under the supervision of Dr. Alberto. 12 minutes spent in clinical coordination of patient's plan of care. Medications at Discharge Home Medications amlodipine 10 mg tablet 5 mg PO DAILY bp 04/26/22 aspirin 81 mg capsule 81 mg PO DAILY blood thinner 04/26/22 carvedilol 6.25 mg tablet 6.25 mg PO BID bp 04/26/22 losartan 100 mg tablet 100 mg PO DAILY bp 04/26/22 metformin 500 mg tablet,extended release 24 hr 1,000 mg PO BID diabetes 04/26/22 primidone 50 mg tablet 25 mg PO QHS shaking 04/26/22 simvastatin 20 mg tablet 20 mg PO DAILY cholesterol 04/26/22 clopidogrel 75 mg tablet (Plavix) 75 mg PO DAILY #21 tabs 04/28/22 Hospital Course Operations None Procedures 2-D Echocardiogram Summary of Care Provided Minutes Spent on Discharge: 35 Hospital Course: Patient is a 71-year-old female who initially presented with worsening left- sided weakness, left side sensory deficit, headache. Patient has a history of TIAs and hypertension. Patient underwent brain CT x2 which were negative for stroke. Head and neck CTA demonstrates no acute findings. Brain MRI without contrast negative for acute findings. Brain MRI with contrast demonstrates multifocal remote lacunar infarct involving the right mariano radiata. Cervical spine MRI negative for acute findings. Patient also underwent EEG which was normal. Echocardiogram completed demonstrates EF 65%. Patient instructed that we will have her follow-up with neurology outpatient and that patient will be placed on aspirin and Plavix. Patient continue her blood pressure medications per her home regimen as well as her simvastatin.. Physical Exam Const alert, oriented x3 and no apparent distress General Appearance: cooperative HEENT normocephalic and head/scalp atraumatic Eyes conjunctivae normal and no scleral icterus Neck no lymphadenopathy and supple General: trachea midline Resp normal respiratory effort, normal air movement and clear to auscultation bilate rally Effort and Inspection: tachypneic Cardio regular rate, regular rhythm, S1 normal heart sound, S2 normal heart sound and peripheral pulses 2+ throughout GI normal to inspection, nondistended, normoactive bowel sounds, soft to palpation and non-tender Extremity normal capillary refill and no clubbing, cyanosis or edema Skin skin turgor normal Neuro no focal motor deficits and no sensory deficits noted Speech: speech normal Psych affect normal Appearance: appropriate Weight / BMI Weight Weight: 264 lb 15.93 oz Body Mass Index (BMI) 48.4 ABG / Lab / Microbiology Data Result Diagrams: 04/28/22 05:33 04/28/22 05:33 Laboratory: Laboratory Results - last 24 hr 04/27/22 05:19: ESR 37 H 04/27/22 05:19: C-React Prot Ext Range 11.70 H 04/27/22 11:05: POC Glucose 118 H 04/27/22 16:51: POC Glucose 112 H 04/28/22 05:33: WBC 9.2, RBC 4.39, Hgb 12.2, Hct 37.6, MCV 85.6, MCH 27.8, MCHC 32.4, RDW Std Deviation 46.4 H, RDW Coeff of Erica 14.7 H, Plt Count 311, MPV 9.9, Immature Gran % (Auto) 0.300, Neut % (Auto) 64.4, Lymph % (Auto) 21.3, Shoshone % (Auto) 10.8 H, Eos % (Auto) 2.8, Baso % (Auto) 0.4, Absolute Neuts (auto) 5.9, Absolute Lymphs (auto) 1.95, Nucleated RBC % 0 04/28/22 05:33: Sodium 139, Potassium 3.7, Chloride 104, Carbon Dioxide 27.0, Anion Gap 8, BUN 14, Creatinine 0.73, Estim Creat Clear Calc 41.40, Est GFR (MDRD) Af Amer 102, Est GFR (MDRD) Non-Af 84, BUN/Creatinine Ratio 19.3, Glucose 120 H, Calcium 8.8, Total Bilirubin 0.80, AST 19, ALT 25, Alkaline Phosphatase 66, Total Protein 7.2, Albumin 3.1 L, Globulin 4.1, Albumin/Globulin Ratio 0.8 L 04/28/22 06:29: POC Glucose 115 H Radiography Diagnostic Testing: Radiology Impression Echocardiogram 04/27/22 05:55 Interpretation Summary The study was technically difficult. Contrast injection was performed. Based upon the 2D echocardiographic and contrast enhanced images obtained there appears to be grossly normal left ventricular size, wall motion, and systolic function. The estimated ejection fraction is 65 %. There is mild mitral annular calcification. Extension of the mitral annular calcification onto the base of the posterior mitral valve leaflet. Bubble contrast study negative for right to left interatrial shunt. Ordering Physician: Lyndsay Torres Referring Physician: Mauricio Valenzuela Performed By: Zoltan Saldana RCS Brain MRI 04/27/22 12:07 IMPRESSION: 1. Chronic ischemic and involutional changes of the brain, as described above. 2. No demonstrated acute infarct or intracranial hemorrhage Electronically Signed: Marquez Gupta MD at 14:10 EDT , Cervical Spine MRI 04/27/22 19:10 IMPRESSION: 1. Diffusely narrow canal which can be seen in the setting of congenitally short pedicles. 2. No evidence however of acute disc herniations or acutely acquired canal stenosis or cord compression. 3. Multilevel foraminal narrowing contributed by facet and vertebral joint hypertrophic changes as detailed. 4. Normal appearance of the spinal cord, no evidence of intradural or intramedullary signal or contrast abnormality. No evidence of demyelinating processes. Electronically Signed: Orlando Hansen MD at 21:10 EDT , Brain MRI 04/27/22 19:55 IMPRESSION: 1. Small focal remote lacunar infarct involving the RIGHT mariano radiata. 2. No mass or mass effect noted. 3. No areas of abnormal contrast enhancement. Electronically Signed: Orlando Hansen MD at 20:54 EDT , D/C Instructions Discharge Diet: Low fat / Low cholesterol and 1800 Calorie Control Diet Call your doctor if you observe: Numbness or Tingling, Dizziness and - (Headaches) Meaningful Use Info Meaningful Use Diagnoses (Choose all that apply): Ischemic CVA CVA Therapy Assessed for PT,OT and/or ST?: Yes Ischemic Stroke Antithrombotic order at d/c?: Yes Dx of Atrial fib/flutter?: No Statins at discharge?: Yes Primary Dx Acute Ischemic CVA?: Yes IV tPA ordered during stay?: No Reason IV t-PA not ordered: Medical Contraindication Discharge Plan Admission Admit Date/Time: 04/26/22 18:49 Primary Reason for Your Visit: Stroke Attending Provider: Panchito Alberto Primary Care Provider: Les Valenzuela Consulting Providers: Lyndsay Torres Discharge Orders/Prescriptions Prescriptions: New clopidogrel [Plavix] 75 mg tablet 75 mg PO DAILY Qty: 21 0RF Continued primidone 50 mg tablet 25 mg PO QHS Label Comments: TAKE 1/2 (ONE-HALF) TABLET BY MOUTH ONCE DAILY AT BEDTIME carvedilol 6.25 mg tablet 6.25 mg PO BID Label Comments: TAKE 1 TABLET BY MOUTH TWICE DAILY WITH MEALS amlodipine 10 mg tablet 5 mg PO DAILY Label Comments: TAKE 1 TABLET BY MOUTH ONCE DAILY simvastatin 20 mg tablet 20 mg PO DAILY Label Comments: TAKE 1 TABLET BY MOUTH ONCE DAILY AT BEDTIME losartan 100 mg tablet 100 mg PO DAILY Label Comments: TAKE 1 TABLET BY MOUTH ONCE DAILY metformin 500 mg tablet extended release 24 hr 1,000 mg PO BID Label Comments: TAKE 2 TABLETS BY MOUTH TWICE DAILY BEFORE MEAL(S) aspirin 81 mg Capsule 81 mg PO DAILY Referrals / Follow Up: Les Valenzuela MD [Primary Care Provider] - Within 2 Weeks Manoj Adam MD [Non-Staff] - Within 2 Weeks NOT,DEFINED [Non-Staff] - Disposition Disposition (needs filled in before D/C Order can be placed): Home, Self Care Documented by User: Dr. Panchito Alberto DO 04/28/22 13:28 Providers Date of Admission: 04/26/22 Reason For Visit: STROKE Diagnosis Discharge Diagnosis (1) Acute headache: Status: Acute Code(s): R51.9 - Headache, unspecified (2) Left-sided weakness: Status: Acute Code(s): R53.1 - Weakness (3) Left-sided sensory deficit present: Status: Acute Code(s): R44.9 - Unspecified symptoms and signs involving general sensations and perceptions Medications at Discharge Home Medications amlodipine 10 mg tablet 5 mg PO DAILY bp 04/26/22 aspirin 81 mg capsule 81 mg PO DAILY blood thinner 04/26/22 carvedilol 6.25 mg tablet 6.25 mg PO BID bp 04/26/22 losartan 100 mg tablet 100 mg PO DAILY bp 04/26/22 metformin 500 mg tablet,extended release 24 hr 1,000 mg PO BID diabetes 04/26/22 primidone 50 mg tablet 25 mg PO QHS shaking 04/26/22 simvastatin 20 mg tablet 20 mg PO DAILY cholesterol 04/26/22 clopidogrel 75 mg tablet (Plavix) 75 mg PO DAILY #21 tabs 04/28/22 ABG / Lab / Microbiology Data Result Diagrams: 04/28/22 05:33 04/28/22 05:33 Discharge Plan Admission Admit Date/Time: 04/26/22 18:49 Primary Reason for Your Visit: Stroke Attending Provider: Panchito Alberto Primary Care Provider: Les Valenzuela Consulting Providers: Lyndsay Torres Discharge Orders/Prescriptions Prescriptions: New clopidogrel [Plavix] 75 mg tablet 75 mg PO DAILY Qty: 21 0RF Continued primidone 50 mg tablet 25 mg PO QHS Label Comments: TAKE 1/2 (ONE-HALF) TABLET BY MOUTH ONCE DAILY AT BEDTIME carvedilol 6.25 mg tablet 6.25 mg PO BID Label Comments: TAKE 1 TABLET BY MOUTH TWICE DAILY WITH MEALS amlodipine 10 mg tablet 5 mg PO DAILY Label Comments: TAKE 1 TABLET BY MOUTH ONCE DAILY simvastatin 20 mg tablet 20 mg PO DAILY Label Comments: TAKE 1 TABLET BY MOUTH ONCE DAILY AT BEDTIME losartan 100 mg tablet 100 mg PO DAILY Label Comments: TAKE 1 TABLET BY MOUTH ONCE DAILY metformin 500 mg tablet extended release 24 hr 1,000 mg PO BID Label Comments: TAKE 2 TABLETS BY MOUTH TWICE DAILY BEFORE MEAL(S) aspirin 81 mg Capsule 81 mg PO DAILY Referrals / Follow Up: Les Valenzuela MD [Primary Care Provider] - Within 2 Weeks Manoj Adam MD [Non-Staff] - Within 2 Weeks NOT,DEFINED [Non-Staff] - Disposition Disposition (needs filled in before D/C Order can be placed): Home, Self Care Charges/Coding Addendum Addendum: Patient seen and examined independently. Data and vitals reviewed. I agree wi th the above note by the nurse practitioner. Is a 71-year-old female presents with left arm and left leg weakness. Patient was evaluated by neurology who recommended MRI with contrast and MRI of the cervical spine. Initial MRI was negative MRI with contrast showed a lacunar infarct involving right mariano radiata. No acute stress and afebrile. Muscle strength is 5-5 in the left upper and left lower extremity. No ataxia. Patient will continue with aspirin daily and be on clopidogrel 75 mg daily for the next 3 weeks. Greater than 20 minutes spent which greater than 50% of time was counseling the patient, examining patient, reviewing data and documentation. Visit Charges Inpatient E&M: [id number] Disch Hosp
--- NOTE | 2022-04-28 11:12 | CASEMGMT ---
Therapy is recommending OP therapy for pt at discharge. Script obtained and given to pt. Pt states is 'back to normal' and does not feel the need for further therapy but has script, just in case. Pt voices no further questions/concerns/needs. Charles LOMBARDO CM
--- NOTE | 2022-04-28 11:18 | PHA.DC.MC ---
Pharmacy Service has performed discharge medication reconciliation and counseling for this patient. 1. CLOPIDOGREL 75MG PO DAILY The patient's discharge medication list was reviewed for discrepancies and discrepancies were resolved. Home Medications amlodipine 10 mg tablet 5 mg PO DAILY bp 04/26/22 aspirin 81 mg capsule 81 mg PO DAILY blood thinner 04/26/22 carvedilol 6.25 mg tablet 6.25 mg PO BID bp 04/26/22 losartan 100 mg tablet 100 mg PO DAILY bp 04/26/22 metformin 500 mg tablet,extended release 24 hr 1,000 mg PO BID diabetes 04/26/22 primidone 50 mg tablet 25 mg PO QHS shaking 04/26/22 simvastatin 20 mg tablet 20 mg PO DAILY cholesterol 04/26/22 clopidogrel 75 mg tablet (Plavix) 75 mg PO DAILY #21 tabs 04/28/22 The patient was counseled on the following discharge medications and changes in medications for homegoing were reviewed. The Reason for Use, instructions for use, and potential side effects were reviewed for all new medications. The patient's questions regarding all of their medications were answered. The patient was able to verbally demonstrate an understanding of their discharge medications. Patient counseled by pharmacy teacherSergei.
[2022-04-28 11:25] LABS: Bedside Glucose 139 mg/dL (74-106)
== END 2022-04-28 16:21 | disposition home or self-care (01) | DRG 103 ==
LOC: ED 18:58 → PCU 19:28
PROVIDERS: Nurse Practitioner Family; Admitting Provider Internal Medicine; Emergency Provider Emergency Medicine; PCP Family Medicine
DX: R51.9 Headache, unspecified (principal); I69.354 Hemiplegia and hemiparesis following cerebral infarction affecting left non-dominant side; Z68.42 Body mass index [BMI] 45.0-49.9, adult; E11.9 Type 2 diabetes mellitus without complications; E66.01 Morbid (severe) obesity due to excess calories; I10 Essential (primary) hypertension; E87.6 Hypokalemia; E78.5 Hyperlipidemia, unspecified; G47.33 Obstructive sleep apnea (adult) (pediatric); R25.1 Tremor, unspecified; R20.0 Anesthesia of skin; R29.898 Other symptoms and signs involving the musculoskeletal system; R41.82 Altered mental status, unspecified; R20.2 Paresthesia of skin; F32.A Depression, unspecified; Z66 Do not resuscitate; Z79.82 Long term (current) use of aspirin; Z79.84 Long term (current) use of oral hypoglycemic drugs; Z79.899 Other long term (current) drug therapy; Z86.16 Personal history of COVID-19
CPT/HCPCS: 36415; 70450; 70496; 70498; 70551; 70552; 71045; 72156; 80048; 80053; 80061; 82962; 83036; 83735; 84100; 84443; 84484; 85025; 85610; 85652; 85730; 86140; 93005; 93306; 94002; 94003; 94762; 95819; 97162; 97166; 99285; A9575; J7030; Q9957; Q9967; A4216; C8929

== ENCOUNTER 2023-02-04 11:31 | Emergency (ER) | payer MEDICARE, OTHER, SELFPAY ==
[2023-02-04 11:32] VITALS: BP 146/69; PULSE 61; RESP 14; TEMP 36.2; O2SAT 96; BMI 47.3
[2023-02-04] MEDS: DiphenhydrAMINE 50 MG/ML Syringe 25 MG IV (12:42)
[2023-02-04] MEDS: Ketorolac 15 MG/ML Vial IV (12:42)
[2023-02-04] MEDS: 0.9% Normal Saline 1,000 ML 999 ML IV (12:42)
[2023-02-04] MEDS: proCHLORPERazine 10 MG/2 ML Vial IV (12:42)
--- NOTE | 2023-02-04 13:18 | CT_ITS ---
STUDY: CT BRAIN WITHOUT CONTRAST REASON FOR EXAM: Female, 72 years old. Headache RADIATION DOSAGE (If Supplied By Facility): CTDIvol = ( 44.99 ) mGy, DLP = ( 846.73 ) mGycm TECHNIQUE: Transaxial CT imaging of the brain was performed without administration of intravenous contrast material. Individualized dose optimization techniques were used for this CT. COMPARISON: February 22, 2018 CT head FINDINGS: Normal soft tissue structures. Normal calvarium. There is mild cerebral atrophy with widening of the extra-axial spaces and ventricular dilatation. There are areas of decreased attenuation within the white matter tracts of the supratentorial brain, consistent with microvascular disease changes. There is a focus of low attenuation within the superior aspect of the basal ganglia adjacent to the caudate extending to the right-sided periventricular white matter unchanged since prior study compatible with prior lacunar infarct. Normal brainstem. Normal cerebellum. There is no intracranial hemorrhage. There are no findings of an acute ischemic infarction. Normal visualized paranasal sinuses. CT/Brain/Head without Contrast IMPRESSION: No visualized acute hemorrhage infarct or edema. Stable head CT. Electronically Signed: Edel Jorge MD at 13:31 EDT Reading Location ID and State: [facility] / [place] Tel , Service support ,
[2023-02-04 13:35] VITALS: RESP 15
[2023-02-04 13:42] VITALS: BP 145/69; PULSE 65; RESP 16; O2SAT 95
--- NOTE | 2023-02-04 14:12 | EDS_ITS ---
HPI History of Present Illness Chief Complaint: Headache Narrative Narrative: Patient is a 72-year-old female who is presenting to the Emergency Room with chief complaint of bilateral frontal headache for the past 6-7 days. Patient states the pain is waxing and waning, but is been persistent. Patient says that she's had transient ischemic attacks in the past. Patient is here because her daughter wanted her to come into the evaluated because her history of transient ischemic attacks in her headache. Patient's blood pressure has been elevated. No acute changes her blood pressure recently patient has no vision or hearing changes. Patient has no chest pain or shortness of breath. Patient has no abdominal pain, nausea, vomiting, or any other acute complaints. Patient looks well. Patient's family is at bedside. [facility] Medical History (Reviewed 07/05/22 @ 10:18 by Radha Kaiser TECHNICIAN ANATOMIC PATHOLOGY, TECHNICIAN ANATOMIC PATHOLOGY-C) Anxiety Anxiety BiPAP (biphasic positive airway pressure) dependence Chronic idiopathic thrombocytopenia Chronic pain Depression Depression Diabetes Essential hypertension Fibromyalgia History of carcinoma History of lung cancer History of stroke History of TIA (transient ischemic attack) HTN (hypertension) Hyperlipidemia Hyperlipidemia Lung cancer Morbid obesity Neuropathy Obstructive sleep apnea On home oxygen therapy Osteopenia Pneumonia due to COVID-19 virus Pulmonary hypertension Sleep apnea Type 2 diabetes mellitus Home Medications fluoxetine 40 mg capsule 40 mg PO DAILY mental health 02/22/18 [History Last Taken 12/12/20] ipratropium 0.5 mg-albuterol 3 mg (2.5 mg base)/3 mL nebulization soln 3 ml inhalation Q6H.RT PRN SHORTNESS OF BREATH ##30 06/12/19 [Rx Last Taken Unknown] calcium carbonate 500 mg-vitamin D3 5 mcg (200 unit) tablet (Calcium 500 + D) 1 tablet PO DAILY SUPPLEMENT 07/11/19 [History Last Taken 12/10/20] albuterol sulfate 2.5 mg/3 mL (0.083 %) solution for nebulization 2.5 mg (3 mL) inhalation Q4H PRN Sob &/Or Wheezing #75 mL 05/13/21 [Rx Last Taken Unknown] amlodipine 10 mg tablet 5 mg PO DAILY bp 04/26/22 [History Last Taken 04/26/22] aspirin 81 mg capsule 81 mg PO DAILY blood thinner 04/26/22 [History Last Taken 04/26/22] carvedilol 6.25 mg tablet 6.25 mg PO BID bp 04/26/22 [History Last Taken 04/26/22] losartan 100 mg tablet 100 mg PO DAILY bp 04/26/22 [History Last Taken 04/26/22] metformin 500 mg tablet,extended release 24 hr 1,000 mg PO BID diabetes 04/26/22 [History Last Taken 04/26/22] albuterol sulfate 90 mcg/actuation aerosol inhaler 2 puff inhalation Q4H PRN Sob &/Or Wheezing #8.5 grams 08/30/22 [Rx Last Taken Unknown] benzonatate 100 mg capsule 100 mg PO TID PRN PRN Cough #20 caps 08/30/22 [Rx Last Taken Unknown] rosuvastatin 20 mg tablet 20 mg PO DAILY 12/23/22 [History Last Taken Unknown] metoclopramide HCl 10 mg tablet 10 mg PO 4X/DAY PRN Headache #8 tabs 02/04/23 [Rx Last Taken Unknown] Allergy/AdvReac Type Severity Reaction Status Date / Time lisinopril Allergy Intermediate cough Verified 02/04/23 11:37 Family History (Reviewed 07/05/22 @ 10:18 by Radha Kaiser TECHNICIAN ANATOMIC PATHOLOGY, TECHNICIAN ANATOMIC PATHOLOGY-C) Mother Diabetes Arthritis Tuberculosis Sister Cancer Brother Cancer leukemia Other Heart disease Hypertension Surgical History (Reviewed 07/05/22 @ 10:18 by Radha Kaiser TECHNICIAN ANATOMIC PATHOLOGY, TECHNICIAN ANATOMIC PATHOLOGY-C) H/O arthroscopic knee surgery H/O hand surgery H/O: hysterectomy History of appendectomy History of arthroscopic knee surgery History of cataract extraction with lens replacement History of cataract surgery History of section History of hand surgery History of hysterectomy History of lung surgery (12/2016) History of lung surgery History of tonsillectomy Hx of tonsillectomy Previous section Social History (Reviewed 07/05/22 @ 10:18 by Radha Kaiser TECHNICIAN ANATOMIC PATHOLOGY, TECHNICIAN ANATOMIC PATHOLOGY-C) household members: spouse housing: house Smoking Status: Never smoker Tobacco: How many years used: 2 how long ago did patient quit smokin years ago second hand exposure: Yes alcohol intake: never substance use type: does not use caffeine: Yes Type: coffee Number of servings: 1 ROS ROS ED ROS Narrative All systems are negative except as noted/marked. All systems reviewed and otherwise negative. EXAM Physical Exam Narrative Exam Narrative: Nurses note and vital signs reviewed and patient is not hypoxic. General: The patient appears well and in no apparent distress. Patient is resting comfortably on cart. Patient is not toxic, lethargic, or listless Skin: Warm, dry, no pallor noted. There is no rash noted. No petechiae, purpura. Head: Normocephalic, atraumatic, No tenderness to palpation to bilateral front omaxillary sinus. Eye: Normal conjunctiva, no drainage, EOMI. PERRL Ears, Nose, Mouth, and Throat: oral mucosa is moist. Nares patent. Mouth without vesicles. Cardiovascular: Regular Rate and Rhythm, no murmur, gallop, rub Respiratory: Patient is in no distress, no accessory muscle use, lungs are clear to auscultation, no wheezing, rales or rhonchi Back: non-tender, no CVA tenderness bilaterally to percussion. No CT LS midline pain GI: soft, no tenderness to palpation, no masses appreciated. No rebound, guarding, or rigidity noted. No flank pain bilateral, No distention Musculoskeletal: Patient has full range of motion of all of the extremities, no motor, sensory, or focal neurological deficits Neurological: A&O x3, normal speech. NIH 0 Psychiatric: Cooperative Const Vital Signs: 02/04/23 11:32 02/04/23 13:35 02/04/23 13:42 Temperature 97.2 F L Temperature Source Temporal Pulse Rate 61 65 Respiratory Rate 14 15 16 Blood Pressure 146/69 H 145/69 H Blood Pressure Mean 94 94 Pulse Ox 96 95 Oxygen Delivery Method Room Air Room Air Room Air MDM MDM MDM Narrative Medical decision making narrative: CT of the brain showed no acute findings. Patient's headache has almost completely dissipated with IV fluids and IV medication given. Patient was educated on headache in hypertension, patient will start recording her blood pressures at home. Patient will present a blood pressure monitor PCP next week. Signs and symptoms of stroke and transient ischemic attack were discussed at bedside and on discharge paperwork. Patient and family at bedside no questions at discharge. Patient was sent home with a prescription for Reglan as well. Radiography Diagnostic Testing: Clinical Impression(s) from Imaging Studies Brain CT 02/04/23 13:18 IMPRESSION: No visualized acute hemorrhage infarct or edema. Stable head CT. Electronically Signed: Edel Jorge MD at 13:31 EDT Reading Location ID and State: [facility] / [place] Tel , Service support , Differential Diagnosis Differential Diagnosis: Headache, subarachnoid hemorrhage, normal pressure hydrocephalus, brain abscess, sinusitis, sinus headache Discharge Plan Triage Chief Complaint: Headache ED Provider: Lamont Lacey Dx/Rx/DC Orders Clinical Impression: Headache, History of hypertension Instructions: Self-Care for Headaches, Understanding Headache Pain, Hypertension Dc, ED Headache, Tension, ED Sinus Headache Prescriptions: New metoclopramide HCl [metoclopramide HCl] 10 mg tablet 10 mg PO 4X/DAY PRN (Reason: Headache) Qty: 8 0RF Rx Instructions: PRN LOJA, N/V No Action calcium carbonate-vitamin D3 [Calcium 500 + D] 500 mg(1,250mg) -200 unit tablet 1 tablet PO DAILY rosuvastatin 20 mg tablet 20 mg PO DAILY fluoxetine 40 MG capsule 40 mg PO DAILY Label Comments: ipratropium-albuterol 3 ML solution for nebulization 3 ml INHALATION Q6H.RT PRN (Reason: SHORTNESS OF BREATH) Qty: 30 0RF carvedilol 6.25 mg tablet 6.25 mg PO BID Label Comments: TAKE 1 TABLET BY MOUTH TWICE DAILY WITH MEALS amlodipine 10 mg tablet 5 mg PO DAILY Label Comments: TAKE 1 TABLET BY MOUTH ONCE DAILY losartan 100 mg tablet 100 mg PO DAILY Label Comments: TAKE 1 TABLET BY MOUTH ONCE DAILY metformin 500 mg tablet extended release 24 hr 1,000 mg PO BID Label Comments: TAKE 2 TABLETS BY MOUTH TWICE DAILY BEFORE MEAL(S) aspirin 81 mg Capsule 81 mg PO DAILY albuterol sulfate 2.5 mg /3 mL (0.083 %) solution for nebulization 2.5 mg inhalation Q4H PRN (Reason: Sob &/Or Wheezing) Qty: 75 3RF Rx Instructions: J47.9 albuterol sulfate 90 mcg/actuation HFA aerosol inhaler 2 puff INHALATION Q4H PRN (Reason: Sob &/Or Wheezing) Qty: 8.5 6RF benzonatate 100 mg capsule 100 mg PO TID PRN PRN (Reason: Cough) Qty: 20 0RF Primary Care Provider: Les Valenzuela Referrals: Les Valenzuela MD [Primary Care Provider] - Activity Restrictions/Additional Instructions: Use Reglan as needed for nausea, vomiting, headache. Increase fluids. If you have continued headaches, follow-up with PCP Disposition Disposition: Home, Self Care Discharge Date/Time: 02/04/23 14:28
[2023-02-04 14:13] VITALS: BP 145/69; PULSE 65; RESP 18; O2SAT 95
[2023-02-04 14:24] VITALS: BP 145/69; PULSE 65; RESP 18; O2SAT 95
== END 2023-02-04 14:28 | disposition home or self-care (01) ==
PROVIDERS: Emergency Provider Emergency Medicine; PCP Family Medicine; Visit Provider Emergency Medicine
DX: R51.9 Headache, unspecified (principal); E11.40 Type 2 diabetes mellitus with diabetic neuropathy, unspecified; Z87.891 Personal history of nicotine dependence; I10 Essential (primary) hypertension; E78.5 Hyperlipidemia, unspecified
CPT/HCPCS: 70450; 96361; 96374; 96375; 99282; J7030; A4216

== ENCOUNTER 2023-10-07 10:33 | Emergency (ER) | payer MEDICARE, SELFPAY ==
[2023-10-07 10:34] VITALS: BP 164/76; PULSE 66; RESP 16; TEMP 36.6; O2SAT 98; BMI 50.4
--- NOTE | 2023-10-07 10:49 | CT_ITS ---
STUDY: CT BRAIN WITHOUT CONTRAST REASON FOR EXAM: Female, 73 years old. Trauma RADIATION DOSAGE (If Supplied By Facility): CTDIvol = ( 44.99 ) mGy, DLP = ( 812.98 ) mGycm TECHNIQUE: Transaxial CT imaging of the brain was performed without administration of intravenous contrast material. Individualized dose optimization techniques were used for this CT. COMPARISON: Comparison is made with prior study dated February 04, 2023. FINDINGS: Normal soft tissue structures. Normal calvarium. There is mild cerebral atrophy with widening of the extra-axial spaces and ventricular dilatation. There are areas of decreased attenuation within the white matter tracts of the supratentorial brain, consistent with microvascular disease changes. Normal basal ganglia and thalami. Normal brainstem. Normal cerebellum. There is no intracranial hemorrhage. There are no findings of an acute ischemic infarction. Normal visualized paranasal sinuses. CT/Brain/Head without Contrast IMPRESSION: Chronic involutional changes of the brain. Electronically Signed: Joshua Barksdale MD at 11:23 EST ,
--- NOTE | 2023-10-07 10:50 | ED.VIS.FALL ---
HPI HPI - Fall History of Present Illness Chief Complaint: Fall Informant: patient and family Narrative Narrative: 73-year-old female presenting to the emergency room following a fall. Patient states that she was walking up a few stairs when on the second step her cane slipped and she fell to the right. She hit her head on a railing post. No loss of consciousness. She notes some nausea and fatigue. She also notes some swelling and pain to the right forearm and lateral proximal right leg. She has been able to bear weight. She uses a cane. She is not on any blood thinner. She does take an aspirin. She denies any neck or back pain. No chest or abdominal pain. She denies any shoulder or elbow pain. She notes that the wrist and hands feel normal. She notes that her toes feel normal. PFSH [facility] Medical History Anxiety Anxiety BiPAP (biphasic positive airway pressure) dependence Chronic idiopathic thrombocytopenia Chronic pain Depression Depression Diabetes Essential hypertension Fibromyalgia History of carcinoma History of lung cancer History of stroke History of TIA (transient ischemic attack) HTN (hypertension) Hyperlipidemia Hyperlipidemia Lung cancer Morbid obesity Neuropathy Obstructive sleep apnea On home oxygen therapy Osteopenia Pneumonia due to COVID-19 virus Pulmonary hypertension Sleep apnea Type 2 diabetes mellitus Home Medications fluoxetine 40 mg capsule 40 mg PO DAILY mental health 02/22/18 [History Last Taken 12/12/20] ipratropium 0.5 mg-albuterol 3 mg (2.5 mg base)/3 mL nebulization soln 3 ml inhalation Q6H.RT PRN SHORTNESS OF BREATH ##30 06/12/19 [Rx Last Taken Unknown] calcium carbonate 500 mg-vitamin D3 5 mcg (200 unit) tablet (Calcium 500 + D) 1 tablet PO DAILY SUPPLEMENT 07/11/19 [History Last Taken 12/10/20] albuterol sulfate 2.5 mg/3 mL (0.083 %) solution for nebulization 2.5 mg (3 mL) inhalation Q4H PRN Sob &/Or Wheezing #75 mL 05/13/21 [Rx Last Taken Unknown] amlodipine 10 mg tablet 5 mg PO DAILY bp 04/26/22 [History Last Taken 04/26/22] aspirin 81 mg capsule 81 mg PO DAILY blood thinner 04/26/22 [History Last Taken 04/26/22] carvedilol 6.25 mg tablet 6.25 mg PO BID bp 04/26/22 [History Last Taken 04/26/22] losartan 100 mg tablet 100 mg PO DAILY bp 04/26/22 [History Last Taken 04/26/22] metformin 500 mg tablet,extended release 24 hr 1,000 mg PO BID diabetes 04/26/22 [History Last Taken 04/26/22] benzonatate 100 mg capsule 100 mg PO TID PRN PRN Cough #20 caps 08/30/22 [Rx Last Taken Unknown] rosuvastatin 20 mg tablet 20 mg PO DAILY 12/23/22 [History Last Taken Unknown] metoclopramide HCl 10 mg tablet 10 mg PO 4X/DAY PRN Headache #8 tabs 02/04/23 [Rx Last Taken Unknown] albuterol sulfate 90 mcg/actuation aerosol inhaler 2 puff inhalation Q4H PRN Sob &/Or Wheezing #8.5 grams 09/09/23 [Rx Last Taken Unknown] azithromycin 250 mg tablet See Rx Instructions PO .COMPLEX #6 tabs 09/23/23 [Rx Last Taken Unknown] prednisone 10 mg tablet 10 mg PO QDAY #30 tabs 09/23/23 [Rx Last Taken Unknown] Allergy/AdvReac Type Severity Reaction Status Date / Time lisinopril Allergy Intermediate cough Verified 10/07/23 10:33 Family History Mother Diabetes Arthritis Tuberculosis Sister Cancer Brother Cancer leukemia Other Heart disease Hypertension Surgical History H/O arthroscopic knee surgery H/O hand surgery H/O: hysterectomy History of appendectomy History of arthroscopic knee surgery History of cataract extraction with lens replacement History of cataract surgery History of section History of hand surgery History of hysterectomy History of lung surgery (12/2016) History of lung surgery History of tonsillectomy Hx of tonsillectomy Previous section Social History household members: spouse housing: house Smoking Status: Never smoker Tobacco: How many years used: 2 how long ago did patient quit smokin years ago second hand exposure: Yes alcohol intake: never substance use type: does not use caffeine: Yes Type: coffee Number of servings: 1 ROS ROS ED ROS Narrative Generalized fatigue Constitutional Constitutional ED: Denies chills, fever(s) or weight loss Eyes Eyes: Denies change in vision or diplopia ENT ENT ED: Denies ear pain, rhinorrhea or sore throat Cardiovascular Cardiovascular: Denies chest pain, orthopnea, palpitations or racing heartbeat Respiratory/Chest Respiratory/Chest: Denies cough, dyspnea or orthopnea Gastrointestinal Gastrointestinal: Reports nausea; Denies abdominal pain, diarrhea or vomiting Genitourinary Genitourinary ED: Denies dysuria, hematuria or urinary frequency Musculoskeletal Musculoskeletal: Reports other Details: Right forearm right leg pain ; Denies arthralgias, back pain, myalgias or neck pain Integumentary Denies abscess or rash Neurologic Neurologic: Reports headache(s); Denies weakness Psychiatric Psychiatric: Denies anxiety, depression, suicidal ideation or suicidal thoughts Endocrine Endocrinology: Denies polydipsia, polyphagia or polyuria Allergic/Immunologic Allergic/Immunologic ED: Denies mouth swelling, tongue swelling or urticaria EXAM Physical Exam Const Vital Signs: 10/07/23 10:34 10/07/23 10:41 Temperature 97.9 F Temperature Source Temporal Pulse Rate 66 Respiratory Rate 16 Respiratory Effort Normal Respiratory Depth Normal Respiratory Pattern Normal Blood Pressure 164/76 H Blood Pressure Mean 105 Pulse Ox 98 Oxygen Delivery Method Room Air Room Air Positive well nourished, well developed and obese General Appearance ED: well developed Nutritional Appearance: obese HEENT Reports normocephalic and moist mucous membranes HEENT Narrative: Right parietal occipital contusion of the scalp noted. Eyes PERRL and EOMs intact bilaterally Neck full ROM, no lymphadenopathy, supple and no JVD General: Negative for tenderness Resp normal respiratory effort and clear to auscultation bilaterally Cardio regular rate, regular rhythm and no murmurs GI normal to inspection, nondistended, normoactive bowel sounds and non-tender Palpation: soft Back/Spine no CVA tenderness and normal ROM Extremity Extremity Narrative: Hematoma to the lateral right leg midshaft extending proximally. Distally neurovascularly intact normal skin color dorsalis pedis pulse felt. There is hematoma to the medial posterior right proximal forearm. There is no olecranon tenderness. Normal supination and pronation. General Extremety ED: Negative for edema General Extremity: Negative for edema Neuro oriented x3 and CN's II-XII intact bilaterally Sensorium / Orientation: alert Motor Exam: strength 5/5 throughout Psych mental status grossly normal Mood & Affect: Negative for depressed or tearful Skin no rashes or lesions noted Skin Narrative: + Hematoma leg/forearm on right MDM MDM MDM Narrative Medical decision making narrative: CT the brain does not demonstrate any intracranial hemorrhage or skull fracture. My independent interpretation of the plain films of the right forearm is no acute fracture. Radiology concern was for a distal ulnar fracture. She has no tenderness there. She is moving the wrist normally. I did specifically go back and reassess that area and was again negative. My independent interpretation of the plain films of the right tib-fib is no acute fracture. Patient most likely has a mild concussion. She has associated hematoma of the forearm and the lower leg. We had a conversation regarding compartment syndrome. We had a discussion in which I informed her she will most likely develop other areas that are sore over the next 24 to 48 hours. If she has any concerns she can certainly return if worsening. She may follow-up with primary care in 1 week for reassessment of the head injury. History & Record Review Discussion w/independent historian: Patient and Family Radiography Diagnostic Testing: Clinical Impression(s) from Imaging Studies Brain CT 10/07/23 10:49 IMPRESSION: Chronic involutional changes of the brain. Electronically Signed: Joshua Barksdale MD at 11:23 EST , Forearm X-Ray 10/07/23 11:05 IMPRESSION: Avulsion fracture of the ulnar styloid and possible transverse fracture of the distal ulnar metaphysis. Radiographs of the wrist joint is recommended for further evaluation if clinically indicated. Electronically Signed: Joshua Barksdale MD at 11:26 EST , Tibia/Fibula X-Ray 10/07/23 11:05 IMPRESSION: Soft tissue swelling. Electronically Signed: Joshua Barksdale MD at 11:27 EST , Discharge Plan Triage Chief Complaint: Fall ED Provider: Skyler Rivers Dx/Rx/DC Orders Clinical Impression: Hematoma of lower leg, Hematoma of right forearm, Concussion, Head injury, Fall Instructions: ED Concussion, ED Contusion, Lower Extremity, ED Hematoma Prescriptions: No Action calcium carbonate-vitamin D3 [Calcium 500 + D] 500 mg(1,250mg) -200 unit tablet 1 tablet PO DAILY rosuvastatin 20 mg tablet 20 mg PO DAILY fluoxetine 40 MG capsule 40 mg PO DAILY Patient Comments: ipratropium-albuterol 3 ML solution for nebulization 3 ml INHALATION Q6H.RT PRN (Reason: SHORTNESS OF BREATH) Qty: 30 0RF carvedilol 6.25 mg tablet 6.25 mg PO BID Patient Comments: TAKE 1 TABLET BY MOUTH TWICE DAILY WITH MEALS amlodipine 10 mg tablet 5 mg PO DAILY Patient Comments: TAKE 1 TABLET BY MOUTH ONCE DAILY losartan 100 mg tablet 100 mg PO DAILY Patient Comments: TAKE 1 TABLET BY MOUTH ONCE DAILY metformin 500 mg tablet extended release 24 hr 1,000 mg PO BID Patient Comments: TAKE 2 TABLETS BY MOUTH TWICE DAILY BEFORE MEAL(S) aspirin 81 mg Capsule 81 mg PO DAILY metoclopramide HCl [metoclopramide HCl] 10 mg tablet 10 mg PO 4X/DAY PRN (Reason: Headache) Qty: 8 0RF Rx Instructions: PRN LOJA, N/V albuterol sulfate 2.5 mg /3 mL (0.083 %) solution for nebulization 2.5 mg inhalation Q4H PRN (Reason: Sob &/Or Wheezing) Qty: 75 3RF Rx Instructions: J47.9 benzonatate 100 mg capsule 100 mg PO TID PRN PRN (Reason: Cough) Qty: 20 0RF albuterol sulfate 90 mcg/actuation HFA aerosol inhaler 2 puff INHALATION Q4H PRN (Reason: Sob &/Or Wheezing) Qty: 8.5 6RF azithromycin 250 mg tablet See Rx Instructions PO .COMPLEX Qty: 6 0RF Rx Instructions: take 500 mg today (day 1), then 250 mg for 4 days (days 2-5) PO prednisone 10 mg tablet 10 mg PO QDAY Qty: 30 0RF Rx Instructions: take 4 tabs for three days, then 3 tabs for three days, then 2 tabs for three days, then 1 tab for 3 days Primary Care Provider: Les Valenzuela Referrals: Les Valenzuela MD [Primary Care Provider] - 1 Week Disposition Disposition: Home, Self Care
--- NOTE | 2023-10-07 11:05 | RAD_ITS ---
STUDY: X-RAY - RIGHT TIBIA AND FIBULA REASON FOR EXAM: Female, 73 years old. Trauma TECHNIQUE: 2 view(s) of the tibia and fibula were obtained. COMPARISON: None. FINDINGS: Normal visualized tibia. Normal visualized fibula. Chondrocalcinosis of the medial and lateral menisci. Soft tissue swelling. RAD/Tibia & Fibula 2 Views IMPRESSION: Soft tissue swelling. Electronically Signed: Joshua Barksdale MD at 11:27 EST ,
--- NOTE | 2023-10-07 11:05 | RAD_ITS ---
STUDY: X-RAY - RIGHT RADIUS AND ULNA REASON FOR EXAM: Female, 73 years old. Pain following a fall. TECHNIQUE: 2 view(s) of the forearm. COMPARISON: None. FINDINGS: There is no demonstrated soft tissue swelling. Normal visualized radius. Findings suggestive of an avulsion fracture of the ulnar styloid and possible transverse fracture of the distal ulnar metaphysis. Imaging of the wrist joint is recommended. RAD/Forearm 2 Views IMPRESSION: Avulsion fracture of the ulnar styloid and possible transverse fracture of the distal ulnar metaphysis. Radiographs of the wrist joint is recommended for further evaluation if clinically indicated. Electronically Signed: Joshua Barksdale MD at 11:26 EST ,
[2023-10-07 12:15] VITALS: BP 134/78; PULSE 64; RESP 14; TEMP 36.4; O2SAT 99
--- OUTSIDE RECORDS SUMMARY | 2023-10-07 12:23 | XMS RPT_ITS | CCD ---
Author Name Unknown Address [address] [place] [address] Organization [facility] Care Team Providers Care Buoy Tender Name Role Phone Jose Enrique Boo Unavailable Unavailable Jose Enrique Boo Unavailable Unavailable Francie Prietoinder Ubaldo Unavailable Unavailable Francie Prietoinder K Unavailable Unavailable Jon Valenzuela Unavailable Unavailab le Spike Prieto Unavailable Unavailable Francie Prietoinder K Unavailable Unavailable Jon Valenzuela Unavailable Unavailab Jon Flaherty MD Primary Care Provider Jon Valenzuela MD Primary Care Provider Jon Valenzuela MD Primary Care Provider CHRIS DUNN Attending Unavailable JON VALENZUELA Referring Unavailab JON Flaherty Primary Care Unavailab Jon Flaherty MD Primary Care Provider JON VALENZUELA Primary Care Unavailab JON Flaherty Primary Care Unavailab PATSY Palacios Attending Unavailable JON VALENZUELA Attending Unavailab JON Flaherty Primary Care Unavailab JON Flaherty Referring Unavailab JON Flaherty Primary Care Unavailab JON Flaherty Primary Care Unavailab JAGDISH Vincent Referring Unavailable JAGDISH ANDRADE Attending Unavailable JON VALENZUELA Primary Care Unavailab JON Flaherty Referring Unavailab JON Flaherty Primary Care Unavailab NATALIE Cardenas Referring Unavailable JON VALENZUELA Primary Care Unavailab le Allergies Allergy Classification Reported Allergen(s) Allergy Type Date of Onset Reaction(s) Facility (1 source) Thiazides; Translations: [thiazide diuretics] Propensity to adverse reactions to drug (disorder) [facility] Repository (1 source) No Known Allergies; Translations: [No Known Allergies] Propensity to adverse reactions to drug (disorder) [facility] Repository (1 source) No Known Medication Allergies; Translations: [No Known Medication Allergies] Propensity to adverse reactions to drug (disorder) [facility] Repository (20 sources) Lisinopril; Translations: [LISINOPRIL] Drug Allergy 0 Cough [facility] Work Phone: (20 sources) Seasonal allergy; Translations: [SEASONAL ALLERGIES] Propensity to adverse reactions 6 Intolerance [facility] Work Phone: Medications Current Medications Medication Drug Class(es) Dates Sig (Normalized) Sig (Original) FLUoxetine 40 mg oral capsule (20 sources) Serotonin Reuptake Inhibitor Start: 04-05-2022 End: 10-05-2023 take 2 capsules by mouth once daily FLUoxetine (PROZAC) 40 mg capsule Indications: Moderate episode of recurrent major depressive disorder (HCC) Take 2 capsules by mouth once daily. 180 capsule 1 04/08/2023 10/05/2023 Active Completed/Discontinued Medications Medication Drug Class(es) Dates Sig (Normalized) Sig (Original) acetaminophen 500 mg oral tablet (20 sources) Start: 01-08-2017 take 1 tablet by mouth every eight hours as needed acetaminophen (TYLENOL EXTRA STRENGTH) 500 mg tablet Take 1 tablet by mouth every 8 hours as needed for Pain. 0 01/08/2017 Active Problems Active Problems Problem Classification Problem Date Documented Da te Episodic/Chronic Acute cerebrovascular disease (20 sources) Lacunar infarction; Translations: [Other cerebral infarction due to occlusion or stenosis of small artery] Onset: 06-14-2022 06-14-2022 Chronic Anxiety disorders (20 sources) Anxiety; Translations: [Anxiety disorder, unspecified] Onset: 04-05-2022 Chronic Cataract (20 sources) Bilateral pseudophakia; Translations: [Presence of intraocular lens] Onset: 01-03-2018 01-03-2018 Chronic Chronic obstructive pulmonary disease and bronchiectasis (1 source) Bronchitis; Translations: [Bronchitis, not specified as acute or chronic] Episodic Diabetes mellitus with complications (2 sources) Type 2 diabetes mellitus; Translations: [Type 2 diabetes mellitus with diabetic neuropathy, unspecified] Onset: 01-21-2020 Chronic Diabetes mellitus without complication (20 sources) Type 2 diabetes mellitus without complication; Translations: [Type 2 diabetes mellitus without complications] Onset: 05-11-2016 Chronic Disorders of lipid metabolism (20 sources) Hypercholesterolem ia; Translations: [Pure hypercholesterolem ia, unspecified] Onset: 05-11-2016 05-11-2016 Chronic E Codes: Fall (2 sources) Fall in home; Translations: [Unspecified fall, initial encounter] Episodic Essential hypertension (20 sources) Essential hypertension; Translations: [Essential (primary) hypertension] Onset: 05-11-2016 01-09-2017 Chronic Fluid and electrolyte disorders (1 source) Hypokalemia; Translations: [Hypokalemia] Episodic Headache; including migraine (3 sources) Headache; Translations: [Headache, unspecified headache type] Episodic Immunizations and screening for infectious disease (3 sources) Needs influenza immunization; Translations: [Encounter for immunization] Episodic Malaise and fatigue (3 sources) Left hemiparesis; Translations: [Weakness] Episodic Mood disorders (20 sources) Recurrent major depressive episodes, moderate ; Translations: [Major depressive disorder, recurrent, moderate] Onset: 12-05-2020 12-05-2020 Chronic Other bone disease and musculoskeletal deformities (20 sources) Osteopenia; Translations: [Other specified disorders of bone density and structure, unspecified site] 06-17-2017 Episodic Other connective tissue disease (1 source) Pain of right forearm; Translations: [Pain in right forearm] Episodic Other connective tissue disease (1 source) Pain of right lower leg; Translations: [Pain in right lower leg] 03-29-2023 Episodic Other eye disorders (20 sources) Bilateral vitreous floaters; Translations: [Other vitreous opacities, bilateral] Onset: 01-03-2018 01-03-2018 Chronic Other hereditary and degenerative nervous system conditions (4 sources) Essential tremor; Translations: [Essential tremor] Chronic Other hereditary and degenerative nervous system conditions (1 source) Essential tremor; Translations: [Benign essential tremor] Onset: 01-10-2023 Chronic Other infections; including parasitic (1 source) Personal history of other infectious and parasitic diseases; Translations: [History of COVID-19] Episodic Other nervous system disorders (1 source) Abnormal gait; Translations: [Unsteadiness on feet] 07-19-2023 Episodic Other non-traumatic joint disorders (1 source) Pain in right knee; Translations: [Pain in joint, lower leg] Episodic Other nutritional; endocrine; and metabolic disorders (20 sources) Body mass index 40+ - severely obese; Translations: [Morbid (severe) obesity due to excess calories] Onset: 01-07-2017 01-09-2017 Chronic Other nutritional; endocrine; and metabolic disorders (1 source) Morbid (severe) obesity due to excess calories; Translations: [Morbid obesity with BMI of 50.0-59.9, adult ([facility])] Onset: 01-09-2017 Chronic Other nutritional; endocrine; and metabolic disorders (1 source) Body mass index (BMI) 50.0-59.9, adult; Translations: [Morbid obesity with BMI of 50.0-59.9, adult ([facility])] Onset: 01-09-2017 Chronic Other screening for suspected conditions (not mental disorders or infectious disease) (5 sources) Patient encounter status; Translations: [Encounter for screening mammogram for malignant neoplasm of breast] Onset: 08-19-2023 Episodic Other upper respiratory infections (1 source) Viral upper respiratory tract infection; Translations: [Acute upper respiratory infection, unspecified] Episodic Pneumonia (except that caused by tuberculosis or sexually transmitted disease) (1 source) Infective pneumonia; Translations: [Pneumonia, unspecified organism] Episodic Residual codes; unclassified (20 sources) Obstructive sleep apnea syndrome; Translations: [Obstructive sleep apnea (adult) (pediatric)] Onset: 01-07-2017 01-09-2017 Chronic Residual codes; unclassified (1 source) Obstructive sleep apnea (adult) (pediatric); Translations: [Obstructive sleep apnea syndrome] Onset: 01-09-2017 Chronic Residual codes; unclassified (3 sources) Cognitive perceptual pattern; Translations: [Unspecified symptoms and signs involving general sensations and perceptions] Episodic Respiratory failure; insufficiency; arrest (adult) (10 sources) Chronic hypoxemic respiratory failure; Translations: [Chronic respiratory failure with hypoxia] Onset: 01-10-2023 Chronic Spondylosis; intervertebral disc disorders; other back problems (1 source) Sciatica; Translations: [Sciatica, right side] 03-29-2023 Episodic Transient cerebral ischemia (20 sources) Cerebral ischemia; Translations: [Transient cerebral ischemic attack, unspecified] Onset: 05-11-2016 01-09-2017 Chronic Past or Other Problems Problem Classification Problem Date Documented Date Episodic/Chronic Blindness and vision defects (20 sources) Bilateral regular astigmatism; Translations: [Regular astigmatism, bilateral] Onset: 10-11-2016 10-11-2016 Episodic Cancer of bronchus; lung (20 sources) History of malignant neoplasm of thoracic cavity structure; Translations: [Personal history of other malignant neoplasm of bronchus and lung] Onset: 08-16-2017 08-16-2017 Episodic Cancer of uterus (20 sources) History of malignant neoplasm of uterine body; Translations: [Personal history of malignant neoplasm of other parts of uterus] Onset: 05-11-2016 05-11-2016 Episodic Conditions associated with dizziness or vertigo (20 sources) Benign paroxysmal positional vertigo; Translations: [Benign paroxysmal vertigo, unspecified ear] Onset: 03-21-2018 03-21-2018 Episodic Other and unspecified benign neoplasm (20 sources) Carcinoid tumor of lung; 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] Onset: 11-16-2016 11-16-2016 Episodic Other connective tissue disease (1 source) Pain in right lower leg; Translations: [Pain in right lower leg] Onset: 03-29-2023 Episodic Other eye disorders (20 sources) Tear film insufficiency; Translations: [Dry eye syndrome of bilateral lacrimal glands] Onset: 10-05-2016 01-03-2018 Episodic Other eye disorders (20 sources) Meibomian gland dysfunction of bilateral eyes; Translations: [Meibomian gland dysfunction right eye, upper and lower eyelids] Onset: 10-11-2016 10-11-2016 Episodic Other eye disorders (20 sources) H/O: L cataract extraction; Translations: [Cataract extraction status, left eye] Onset: 08-10-2017 08-10-2017 Episodic Other eye disorders (20 sources) H/O: R cataract extraction; Translations: [Cataract extraction status, right eye] Onset: 08-26-2017 08-26-2017 Episodic Other eye disorders (20 sources) Excess skin of eyelid; Translations: [Dermatochalasis of right upper eyelid] Onset: 01-03-2019 01-03-2019 Episodic Other eye disorders (8 sources) Dermatochalasis of right upper eyelid; Translations: [Dermatochalasis] Onset: 01-03-2019 01-03-2019 Episodic Results Test Name Value Interpretation Reference Range Facil ity Vital Signs Date Time Vital Sign Value Performing Clinician Cristine cochran 07-19-2023 10:01-0500 Body weight 118.93 kg Jagdish Podlogar ENERGY AND SUSTAINABILITY MANAGER.STOCKING INSPECTOR Work Phone: [facility] 07-19-2023 10:01-0500 Diastolic blood pressure 78 mm[Hg] Jagdish Podlogar ENERGY AND SUSTAINABILITY MANAGER.STOCKING INSPECTOR Work Phone: [facility] 07-19-2023 10:01-0500 Heart rate 68 /min Jagdish Podlogar ENERGY AND SUSTAINABILITY MANAGER.STOCKING INSPECTOR Work Phone: [facility] 07-19-2023 10:01-0500 Respiratory rate 18 /min Jagdish Podlogar ENERGY AND SUSTAINABILITY MANAGER.STOCKING INSPECTOR Work Phone: [facility] 07-19-2023 10:01-0500 SaO2% (BldA) [Mass fraction] 95 % Jagdish Podlogar ENERGY AND SUSTAINABILITY MANAGER.STOCKING INSPECTOR Work Phone: [facility] 07-19-2023 10:01-0500 Systolic blood pressure 142 mm[Hg] Jagdish Podlogar ENERGY AND SUSTAINABILITY MANAGER.STOCKING INSPECTOR Work Phone: [facility] 03-29-2023 15:34-0400 Body temperature 97.39 [degF] Natalie Praisler-Wood ENERGY AND SUSTAINABILITY MANAGER.STOCKING INSPECTOR Work Phone: [facility] 03-29-2023 15:34-0400 Body weight 117.48 kg Natalie Praisler-Wood ENERGY AND SUSTAINABILITY MANAGER.STOCKING INSPECTOR Work Phone: [facility] 03-29-2023 15:34-0400 Diastolic blood pressure 82 mm[Hg] Natalie Praisler-Wood ENERGY AND SUSTAINABILITY MANAGER.STOCKING INSPECTOR Work Phone: [facility] 03-29-2023 15:34-0400 Heart rate 90 /min Natalie Praisler-Wood ENERGY AND SUSTAINABILITY MANAGER.STOCKING INSPECTOR Work Phone: [facility] 03-29-2023 15:34-0400 Respiratory rate 18 /min Natalie Praisler-Wood ENERGY AND SUSTAINABILITY MANAGER.STOCKING INSPECTOR Work Phone: [facility] 03-29-2023 15:34-0400 SaO2% (BldA) [Mass fraction] 94 % Natalie Benitez APRN.STOCKING INSPECTOR Work Phone: [facility] 03-29-2023 15:34-0400 Systolic blood pressure 152 mm[Hg] Natalie Benitez APRN.STOCKING INSPECTOR Work Phone: [facility] 01-10-2023 08:42-0400 Body height 157.5 cm Jon Valenzuela MD Work Phone: [facility] 01-10-2023 08:42-0400 Body weight 118.39 kg Jon Valenzuela MD Work Phone: [facility] 01-10-2023 08:42-0400 Diastolic blood pressure 80 mm[Hg] Jon Valenzuela MD Work Phone: [facility] 01-10-2023 08:42-0400 Heart rate 62 /min Jon Valenzuela MD Work Phone: [facility] 01-10-2023 08:42-0400 Respiratory rate 16 /min Jon Valenzuela MD Work Phone: [facility] 01-10-2023 08:42-0400 Systolic blood pressure 120 mm[Hg] Jon Valenzuela MD Work Phone: [facility] 08-20-2022 09:29-0500 Body height 156.2 cm Eron Melara MD Work Phone: [facility] 08-20-2022 09:29-0500 Body temperature 98.71 [degF] Eron Melara MD Work Phone: [facility] 08-20-2022 09:29-0500 Body weight 118.39 kg Eron Melara MD Work Phone: [facility] 08-20-2022 09:29-0500 Diastolic blood pressure 77 mm[Hg] Eron Melara MD Work Phone: [facility] 08-20-2022 09:29-0500 Heart rate 73 /min Eron Melara MD Work Phone: [facility] 08-20-2022 09:29-0500 SaO2% (BldA) [Mass fraction] 93 % Eron Melara MD Work Phone: [facility] 08-20-2022 09:29-0500 Systolic blood pressure 142 mm[Hg] Eron Melara MD Work Phone: [facility] 07-21-2022 10:41-0500 Body temperature 99.3 [degF] Jon Valenzuela MD Work Phone: [facility] 07-21-2022 10:41-0500 Body weight 118.84 kg Jon Valenzuela MD Work Phone: [facility] 07-21-2022 10:41-0500 Diastolic blood pressure 70 mm[Hg] Jon Valenzuela MD Work Phone: [facility] 07-21-2022 10:41-0500 Heart rate 80 /min Jon Valenzuela MD Work Phone: [facility] 07-21-2022 10:41-0500 Respiratory rate 20 /min Jon Valenzuela MD Work Phone: [facility] 07-21-2022 10:41-0500 SaO2% (BldA) [Mass fraction] 95 % Jon Valenzuela MD Work Phone: [facility] 07-21-2022 10:41-0500 Systolic blood pressure 118 mm[Hg] Jon Valenzuela MD Work Phone: [facility] 07-06-2022 09:50-0400 Body weight 121.84 kg Jon Valenzuela MD Work Phone: [facility] 07-06-2022 09:50-0400 Diastolic blood pressure 74 mm[Hg] Jon Valenzuela MD Work Phone: [facility] 07-06-2022 09:50-0400 Heart rate 63 /min Jon Valenzuela MD Work Phone: [facility] 07-06-2022 09:50-0400 Respiratory rate 16 /min Jon Valenzuela MD Work Phone: [facility] 07-06-2022 09:50-0400 SaO2% (BldA) [Mass fraction] 96 % Jon Valenzuela MD Work Phone: [facility] 07-06-2022 09:50-0400 Systolic blood pressure 130 mm[Hg] Jon Valenzuela MD Work Phone: [facility] 05-04-2022 09:19-0400 Diastolic blood pressure 70 mm[Hg] Jon Valenzuela MD Work Phone: [facility] 05-04-2022 09:19-0400 Systolic blood pressure 134 mm[Hg] Jon Valenzuela MD Work Phone: [facility] 05-04-2022 08:36-0400 Body weight 122.29 kg Jon Valenzuela MD Work Phone: [facility] 05-04-2022 08:36-0400 Heart rate 65 /min Jon Valenzuela MD Work Phone: [facility] 05-04-2022 08:36-0400 Respiratory rate 16 /min Jon Valenzuela MD Work Phone: [facility] 05-04-2022 08:36-0400 SaO2% (BldA) [Mass fraction] 94 % Jon Valenzuela MD Work Phone: [facility] 04-05-2022 11:05-0400 Body weight 122.02 kg Jon Valenzuela MD Work Phone: [facility] 04-05-2022 11:05-0400 Diastolic blood pressure 78 mm[Hg] Jon Valenzuela MD Work Phone: [facility] 04-05-2022 11:05-0400 Heart rate 66 /min Jon Valenzuela MD Work Phone: [facility] 04-05-2022 11:05-0400 Respiratory rate 16 /min Jon Valenzuela MD Work Phone: [facility] 04-05-2022 11:05-0400 SaO2% (BldA) [Mass fraction] 95 % Jon Valenzuela MD Work Phone: [facility] 04-05-2022 11:05-0400 Systolic blood pressure 136 mm[Hg] Jon Valenzuela MD Work Phone: [facility] Encounters Encounter Date Encounter Type Care Provider Facility Start: 08-23-2023 Telephone encounter Jagdish Lewis jl MADISONSTOCKING INSPECTOR Work Phone: [facility] Start: 08-19-2023 End: 08-19-2023 ambulatory JON VALENZUELA Facility:[facility] Start: 08-19-2023 End: 08-19-2023 Subsequent hospital visit by physician Screen Mammo [facility] Mammogram Procedures Date Procedure Procedure Detail Performing Clinician Start: 08-18-2022 Mammography Mammograph y Coordinator Start: 07-06-2022 [employer] COVI D-19 BIVALENT BOOSTER VACCINE, AGE 12+ YR Jon Valenzuela MD Work Phone: Start: 07-06-2022 INFLUENZA SEASONAL QUADRIVALENT HIGH DOSE AGE 65+ Jon Valenzuela MD Work Phone: Start: 08-17-2021 Mammography Les Valenzuela MD Work Phone: Plan of Treatment Date Care Activity Detail Author Start: 04-15-2027 Urine microalbumin profile [facility] Start: 07-20-2025 COLOGUARD (FIT-DNA) COLOGUARD (FIT-D NA) [facility] Start: 07-20-2025 COLORECTAL CANCER SCREENING COLORECTAL CANCER SCREENING [facility] Start: 07-20-2025 Screening for malign ant neoplasm of colon [facility] Start: 08-19-2024 Screening for malign ant neoplasm of breast Mammogram Screening [facility] Start: 07-19-2024 Annual PCP Team Container Crane Operator lon Disease Visit Annual PCP Team Chronic Disease Visit [facility] Start: 07-13-2024 Hepatitis B screening Urine Al bumin:Creatinine Ratio [facility] Start: 07-13-2024 Hepatitis B surface antibody level LDL Cholesterol [facility] Start: 02-05-2024 ANNUAL PCP TEAM OILER HELPER LON DISEASE VISIT ANNUAL PCP TEAM CHRONIC DISEASE VISIT [facility] Start: 01-11-2024 3 comp foot exam completed DIABETIC FOOT EXAM [facility] Start: 01-11-2024 ANNUAL PCP TEAM OILER HELPER LON DISEASE VISIT ANNUAL PCP TEAM CHRONIC DISEASE VISIT [facility] Start: 01-11-2024 Diabetic foot examination Diabetic F oot Exam [facility] Start: 01-11-2024 Hemoglobin A1c measurement HbA1C [facility] Start: 01-11-2024 Hemoglobin A1c/Hemoglobin.total in Blood HbA1C [facility] Start: 01-11-2024 SHINGRIX VACCINE (1 of 2) LEW GRIX VACCINE (1 of 2) [facility] Immunizations Immunization Date Immunization Notes Care Provider Fa cili 07-06-2022 COVID-19 booster vaccine, age 12+ yr, bivalent (PFIZER-BIONTECH) Jon Valenzuela MD Work Phone: [facility] 07-06-2022 influenza, high-dose , quadrivalent vaccine (FLUZONE HIGH DOSE QUADRIVALENT) Jon Valenzuela MD Work Phone: [facility] 07-06-2022 influenza virus vaccine, unspecified formulation Jagdish Andrade ENERGY AND SUSTAINABILITY MANAGER.STOCKING INSPECTOR Work Phone: [facility] 10-05-2021 COVID-19 vaccine, ag e 12+ yr (PFIZER-BIONTECH - JIMENEZ TOP) Jon Valenzuela MD Work Phone: [facility] Work Phone: 07-23-2021 pneumococcal polysaccharide vaccine, 23 valent Jon Valenzuela MD Work Phone: [facility] 06-12-2021 influenza, high-dose , quadrivalent vaccine (FLUZONE HIGH DOSE QUADRIVALENT) Jon Valenzuela MD Work Phone: [facility] Work Phone: 03-11-2021 COVID-19 vaccine, ag e 12+ yr (PFIZER-BIONTECH - PURPLE TOP) Jon Valenzuela MD Work Phone: [facility] Work Phone: 02-18-2021 COVID-19 vaccine, ag e 12+ yr (PFIZER-BIONTECH - PURPLE TOP) Jon Valenzuela MD Work Phone: [facility] 05-14-2020 influenza, high dose seasonal, preservative-free Jon Valenzuela MD Work Phone: [facility] 05-14-2020 influenza, seasonal, injectable Jon Valenzuela MD Work Phone: [facility] 06-22-2019 influenza, high dose seasonal, preservative-free Jon Valenzuela MD Work Phone: [facility] 06-09-2018 influenza, high dose seasonal, preservative-free Jon Valenzuela MD Work Phone: [facility] 06-17-2017 influenza, high dose seasonal, preservative-free Jon Valenzuela MD Work Phone: [facility] 04-15-2017 tetanus toxoid, redu nathaniel diphtheria toxoid, and acellular pertussis vaccine, adsorbed Jon Valenzuela MD Work Phone: [facility] 09-09-2016 pneumococcal conjuga te vaccine, 13 valent Jon Valenzuela MD Work Phone: [facility] 07-13-2016 pneumococcal polysaccharide vaccine, 23 valent Jon Valenzuela MD Work Phone: [facility] Work Phone: Payers Date Payer Category Payer Medicare [id number] 2019 Unknown MMO MMO MEDICARE SUPPLEMENT [id number] 2019-Present [phone] [address] [place] [address] Indemnity [id number] 2018 Medicare MEDICARE MEDICAR E A AND B [id number] 2018-Present [phone] [address] [address] [place] [address] Medicare [id number] 2018 Medicare MEDICARE MEDICAR E A AND B [id number] 2018-Present [phone] [place] [address] Medicare [id number] 2018 Medicare [id number] 2016 Unknown Social History Date Type Detail Facility Start: 05-11-2016 End: 05-04-2022 Tobacco smoking status NHIS Ex-smoker [facility] Work Phone: End: 08-25-1972 History of tobacco use Current smoker [facility] Work Phone: End: 08-25-1972 History of tobacco use Cigarette Smoker [facility] Work Phone: Start: 05-11-2016 End: 07-19-2023 Cigarettes smoked current (pack per day) - Reported 0.75 [facility] Start: 05-11-2016 End: 05-04-2022 Tobacco use and exposure Smokeless tobacco non-user [facility] Work Phone: Start: 10-26-2021 End: 07-19-2023 Alcohol intake Current drinker of alcohol (finding) [facility] Start: 08-20-2020 End: 01-10-2023 History SDOH Alcohol Frequency 2 [facility] Start: 08-20-2020 End: 01-10-2023 History SDOH Alcohol Std Drinks 1 [facility] Start: 05-11-2016 History SDOH Alcohol Comment Rare mixed drink [facility] Start: 08-20-2020 End: 01-10-2023 History SDOH Social Connections Phone 5 [facility] Start: 08-20-2020 End: 01-10-2023 History SDOH Social Connections Living 3 [facility] Start: 08-20-2020 End: 01-10-2023 History SDOH Physical Activity DPW 0 [facility] Start: 08-20-2020 Education 15 [facility] Start: 1950 Sex Assigned At Not on file [facility] Start: 09-26-2021 End: 07-21-2022 Exposure to SARS-CoV-2 (event) Not sure [facility] Start: 1950 Sex Assigned At Female [facility] Start: 01-09-2023 End: 07-19-2023 Social connection and isolation panel [facility] Frequency of Social Gatherings with Friends and Family Not on file [facility] Do you belong to any clubs or organizations such as sikh groups, unions, fraternal or athletic groups, or school groups? Yes [facility] Are you now , , , , never or living with a partner? [facility] How often to you hav e a drink containing alcohol? 2-4 times a month [facility] How many standard dr inks containing alcohol do you have on a typical day? 1 or 2 [facility] [facility] How often do you hav e 6 or more drinks on 1 occasion? Never [facility] How hard is it for y ou to pay for the very basics like food, housing, medical care, and heating Somewhat hard [facility] Do you feel stress - tense, restless, nervous, or anxious, or unable to sleep at night because your mind is troubled all the time - these days [OSQ] To some extent [facility] (I/We) worried wheth er (my/our) food would run out before (I/we) got money to buy more. Never true [facility] In the past 12 month s, was there a time when you were not able to pay the mortgage or rent on time? No [facility] Start: 04-04-2022 Gender identity Identifies as female gender (finding) [facility] Start: 04-04-2022 Sexual orientation Heterosexual (finding) [facility] Clinical Notes 01-03-2018 to 08-23-2023 Telephone Encounter - Oralia Medrano LPN - 08/23/2023 10:15 AM ESTTelephone Encounter - Jagdish Andrade APRN.CNP - 08/23/2023 7:21 AM Laura Stone Mammo Tech - 08/19/2023 8:10 AM EST Note Date & Type Note Facility 08-23-2023 Miscellaneous Notes Detailed VM left on pt's identified voicemail of information below. Oralia Medrano LPN Please call patient and let her know there is no mammographic evidence of malignancy. A 1 year screening mammogram is recommended. Jagdish Andrade APRN.CNP documented in this encounter [facility] 08-19-2023 Note HNO ID: [id number] Author: Laura Bang Mammo Tech Service: ? Author Type: Chip Mucker Type: Progress Notes Filed: 08/19/2023 8:29 AM Note Text: Radiology Service Progress Note PATIENT NAME: Priyanka Jiménez DATE OF SERVICE: August 19, 2023 TIME: 8:07 AM PATIENT IDENTITY VERIFICATION COMPLETED USING TWO (2) IDENTIFIERS: Name and Date of confirmed by patient verbally. FALL SCREENING: Has the patient had 2 falls in the last year or 1 fall with injury or currently using an Ambulatory Assistive Device (Walker, Cane, Wheelchair, Crutches, etc.)? No PATIENT GENDER DATA: Female. status: : No status: NO. PATIENT RELEVANT IMPLANT DATA REVIEWED: Not Applicable RADIOLOGY DEPARTMENT: Mammography PERIPHERAL IV DATA: Not applicable SIGNED BY: Harvinder Wells August 19, 2023 8:07 AM [facility] 08-19-2023 History of Present illness Narrative Radiology Service Progress Note PATIENT NAME: Priyanka Jiménez DATE OF SERVICE: August 19, 2023 TIME: 8:07 AM PATIENT IDENTITY VERIFICATION COMPLETED USING TWO (2) IDENTIFIERS: Name and Date of confirmed by patient verbally. FALL SCREENING: Has the patient had 2 falls in the last year or 1 fall with injury or currently using an Ambulatory Assistive Device (Walker, Cane, Wheelchair, Crutches, etc.)? No PATIENT GENDER DATA: Female. status: : No status: NO. PATIENT RELEVANT IMPLANT DATA REVIEWED: Not Applicable RADIOLOGY DEPARTMENT: Mammography PERIPHERAL IV DATA: Not applicable SIGNED BY: Harvinder Wells August 19, 2023 8:07 AM documented in this encounter [facility] 07-19-2023 Note HNO ID: [id number] Author: Jagdish Andrade APRN.STOCKING INSPECTOR Service: ? Author Type: Nurse Practitioner Type: Progress Notes Filed: 07/19/2023 11:17 AM Note Text: 07/19/2023 Patient presents with: F/U 6 Month SUBJECTIVE: This is a 73 year old that is here today for Above Complaints. Since last office visit did go to ER for headaches. She reports they did a CT and everything was okay. Admits to occasional headaches. Denies visual changes, lightheadedness, dizziness, slurred speech, facial dropping, extremity numbness, tingling or weakness DIABETES MELLITUS: Since her last visit she denies excessive thirst or increased frequency of urination, chest pain or dyspnea , numbness, tingling or pain in extremities, new or unusual visual symptoms, low sugar/hypoglycemic reactions, weight loss/gain, lightheadedness/dizziness, and bowel changes/loose stools. Follows a diabetic diet most of the time. She is compliant with medication(s) and is tolerating med(s) without any side effects. She reports checking her glucose on a once a day schedule with sugars in the <120 range. Patient's last HgA1C was Hemoglobin A1C (%) Date Value 07/13/2023 6.2 01/07/2023 6.4 10/05/2021 6.3 04/06/2021 6.6 ) Last Ophthalmology exam was within the past 12 months- patient reports had this completed in February. TIA: had followed with a neurologist for hx of TIA. Reports was told did not have to follow-up anymore Depression/Anxiety: taking Prozac as prescribed without side effects JAJA/O2: follows with Dr. Zheng, automotive brake technician. Her last appointment was on Tuesday. Reports treated for bronchitis at that appointment. Completed antibiotic. Taking prednisone as prescribed. Cough improving. Did have to use her oxygen last week. Uses BiPAP nightly. Denies wheezing, dyspnea, orthopnea or hemoptysis HTN: Patient is compliant with meds Yes Monitors bp at home: Yes. Denies side effects: Yes. Chest pain: No. Dyspnea: No. Edema: Yes. Palpitations: No. Syncope: No. Headache: Yes. Dizziness: No. HYPERLIPIDEMIA: Patient is taking medications: Yes. Patient is watching diet: Yes. Patient denies myalgias: Yes. Patient denies gi upset: Yes Taking primidone for hx of benign tremors. Works well to control Needs renewal letter for handicap tobias. Report she needs to use cane for ambulation. 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 Melara-hematology/oncology, Dr. Zheng-pulmonology Cataracts, bilateral Depression Diabetes (HCC) Type II Environmental allergies ??? Fibromyalgia Gout History of COVID-19 12/2020 Hypertension Morbid obesity (HCC) 01/06/2017 BMI 50.3 Neuropathy JAJA (obstructive sleep apnea) Bipap Osteopenia Pneumonia due to COVID-19 virus 12/09/2020 Dr. Zheng Thrombocytosis Seeing Dr. Melara; on hydroxyurea and blood thinners TIA (transient ischemic attack) 04/26/2016 TIA Uterine cancer (HCC) 1985 hysterectomy ALLERGIES Lisinopril and Seasonal Allergies MEDICATIONS Current Outpatient Medications Medication Sig FLUoxetine (PROZAC) 40 mg capsule Take 2 capsules by mouth once daily. rosuvastatin (CRESTOR) 20 mg tablet Take 1 tablet by mouth daily at bedtime. losartan (COZAAR) 100 mg tablet Take 1 tablet by mouth once daily. amLODIPine (NORVASC) 10 mg tablet Take 1 tablet by mouth once daily. carvedilol (COREG) 6.25 mg tablet Take 1 tablet by mouth twice daily with meals. metFORMIN ER (GLUCOPHAGE XR) 500 mg 24 hr tablet Take 2 tablets by mouth twice daily before meals. primidone (MYSOLINE) 50 mg tablet Take 0.5 tablets by mouth daily at bedtime. albuterol HFA (VENTOLIN HFA) 90 mcg/actuation inhaler Inhale 2 Puffs as instructed every 4 hours as needed. albuterol (PROVENTIL) 2.5 mg /3 mL (0.083 %) nebulizer solution Use 3 mL via nebulizer every 6 hours as needed. OVER 5-15 MINUTES. FOR WHEEZING AND SHORTNESS OF BREATH. CALCIUM CARBONATE/VITAMIN D3 (CALCIUM + D ORAL) Take 2 tablets by mouth once daily. acetaminophen (TYLENOL EXTRA STRENGTH) 500 mg tablet Take 1 tablet by mouth every 8 hours as needed for Pain. aspirin 81 mg chewable tablet Take 81 mg by mouth once daily. No current facility-administered medications for this visit. Medications and allergies reviewed by this provider. SOCIAL HISTORY Social History Tobacco Use Smoking status: Former Packs/day: 0.75 Years: 1.00 Additional pack years: 0.00 Total pack years: 0.75 Types: Cigarettes Quit date: 08/25/1972 Years since quittin.9 Smokeless tobacco: Never Vaping Use Vaping Use: Never used Substance Use Topics Alcohol use: Yes Comment: Rare mixed drink Drug use: No REVIEW OF SYSTEMS All other reviewed and negative other than HPI. OBJECTIVE: BP 142/78 Pulse 68 Resp 18 Wt 118.9 kg (262 lb 3.2 oz) SpO2 95% BMI 47.96 kg/m? . Vital signs reviewed (more content not included)... [facility] 07-19-2023 History of Present illness Narrative 07/19/2023 Patient presents with: F/U 6 Month SUBJECTIVE: This is a 73 year old that is here today for Above Complaints. Since last office visit did go to ER for headaches. She reports they did a CT and everything was okay. Admits to occasional headaches. Denies visual changes, lightheadedness, dizziness, slurred speech, facial dropping, extremity numbness, tingling or weakness DIABETES MELLITUS: Since her last visit she denies excessive thirst or increased frequency of urination, chest pain or dyspnea , numbness, tingling or pain in extremities, new or unusual visual symptoms, low sugar/hypoglycemic reactions, weight loss/gain, lightheadedness/dizziness, and bowel changes/loose stools. Follows a diabetic diet most of the time. She is compliant with medication(s) and is tolerating med(s) without any side effects. She reports checking her glucose on a once a day schedule with sugars in the <120 range. Patient's last HgA1C was Hemoglobin A1C (%) Date Value 07/13/2023 6.2 01/07/2023 6.4 10/05/2021 6.3 04/06/2021 6.6 ) Last Ophthalmology exam was within the past 12 months- patient reports had this completed in February. TIA: had followed with a neurologist for hx of TIA. Reports was told did not have to follow-up anymore Depression/Anxiety: taking Prozac as prescribed without side effects JAJA/O2: follows with Dr. Zheng, automotive brake technician. Her last appointment was on Tuesday. Reports treated for bronchitis at that appointment. Completed antibiotic. Taking prednisone as prescribed. Cough improving. Did have to use her oxygen last week. Uses BiPAP nightly. Denies wheezing, dyspnea, orthopnea or hemoptysis HTN: Patient is compliant with meds Yes Monitors bp at home: Yes. Denies side effects: Yes. Chest pain: No. Dyspnea: No. Edema: Yes. Palpitations: No. Syncope: No. Headache: Yes. Dizziness: No. HYPERLIPIDEMIA: Patient is taking medications: Yes. Patient is watching diet: Yes. Patient denies myalgias: Yes. Patient denies gi upset: Yes Taking primidone for hx of benign tremors. Works well to control Needs renewal letter for handicap tobias. Report she needs to use cane for ambulation. 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 Melara-hematology/oncology, Dr. Zheng-pulmonology Cataracts, bilateral Depression Diabetes (HCC) Type II Environmental allergies ??? Fibromyalgia Gout History of COVID-19 12/2020 Hypertension Morbid obesity (HCC) 01/06/2017 BMI 50.3 Neuropathy JAJA (obstructive sleep apnea) Bipap Osteopenia Pneumonia due to COVID-19 virus 12/09/2020 Dr. Zheng Thrombocytosis Seeing Dr. Melara; on hydroxyurea and blood thinners TIA (transient ischemic attack) 04/26/2016 TIA Uterine cancer (HCC) 1985 hysterectomy ALLERGIES Lisinopril and Seasonal Allergies MEDICATIONS Current Outpatient Medications Medication Sig FLUoxetine (PROZAC) 40 mg capsule Take 2 capsules by mouth once daily. rosuvastatin (CRESTOR) 20 mg tablet Take 1 tablet by mouth daily at bedtime. losartan (COZAAR) 100 mg tablet Take 1 tablet by mouth once daily. amLODIPine (NORVASC) 10 mg tablet Take 1 tablet by mouth once daily. carvedilol (COREG) 6.25 mg tablet Take 1 tablet by mouth twice daily with meals. metFORMIN ER (GLUCOPHAGE XR) 500 mg 24 hr tablet Take 2 tablets by mouth twice daily before meals. primidone (MYSOLINE) 50 mg tablet Take 0.5 tablets by mouth daily at bedtime. albuterol HFA (VENTOLIN HFA) 90 mcg/actuation inhaler Inhale 2 Puffs as instructed every 4 hours as needed. albuterol (PROVENTIL) 2.5 mg /3 mL (0.083 %) nebulizer solution Use 3 mL via nebulizer every 6 hours as needed. OVER 5-15 MINUTES. FOR WHEEZING AND SHORTNESS OF BREATH. CALCIUM CARBONATE/VITAMIN D3 (CALCIUM + D ORAL) Take 2 tablets by mouth once daily. acetaminophen (TYLENOL EXTRA STRENGTH) 500 mg tablet Take 1 tablet by mouth every 8 hours as needed for Pain. aspirin 81 mg chewable tablet Take 81 mg by mouth once daily. No current facility-administered medications for this visit. Medications and allergies reviewed by this provider. SOCIAL HISTORY Social History Tobacco Use Smoking status: Former Packs/day: 0.75 Years: 1.00 Additional pack years: 0.00 Total pack years: 0.75 Types: Cigarettes Quit date: 08/25/1972 Years since quittin.9 Smokeless tobacco: Never Vaping Use Vaping Use: Never used Substance Use Topics Alcohol use: Yes Comment: Rare mixed drink Drug use: No REVIEW OF SYSTEMS All other reviewed and negative other than HPI. OBJECTIVE: BP 142/78 Pulse 68 Resp 18 Wt 118.9 kg (262 lb 3.2 oz) SpO2 95% BMI 47.96 kg/m . Vital signs reviewed by this provider. APPEARANCE Well appearing, alert, in no acute distress, well-hydrated, well nourished. EYES conjunctiva and sclera normal. HEART RRR with normal S1 and S2, no murmurs, no gallops, no JVD appreciated LUNG clear to auscultation. No wheezes, rhonchi or rales EXTREMITIES Extremities normal, No deformities, No skin discoloration, and No edema SKIN Skin color, texture, turgor normal, no suspicious rashes or lesions to exposed skin Component Latest Ref Rng & Units 07/13/2023 WBC 3.70 - 11.00 k/uL 10.22 RBC 3.90 - 5.20 m/uL 4.74 Hemoglobin 11.5 - 15.5 g/dL 12.9 Hematocrit 36.0 - 46.0 % 41.3 MCV 80.0 - 100.0 fL 87.1 MCH 26.0 - 34.0 pg 27.2 MCHC 30.5 - 36.0 g/dL 31.2 RDW-CV 11.5 - 15.0 % 15.0 Platelet Count 150 - 400 k/uL 370 MPV 9.0 - 12.7 fL 9.9 Neut% % 63.0 Abs Neut (ANC) 1.45 - 7.50 k/uL 6.44 Lymph% % 23.4 Abs Lymph 1.00 - 4.00 k/uL 2.39 Bullock% % 9.1 Abs Bullock <0.87 k/uL 0.93 (H) Eosin% % 3.2 Abs Eosin <0.46 k/uL 0.33 Baso% % 0.8 Abs Baso <0.11 k/uL 0.08 Immature Gran % % 0.5 IMMATURE GRANS (ABS) <0.10 k/uL 0.05 NRBC /100 WBC 0.0 Absolute nRBC <0.01 k/uL <0.01 DTYPE Auto Protein, Total 6.3 - 8.0 g/dL 7.7 Albumin 3.9 - 4.9 g/dL 4.0 Calcium 8.5 - 10.2 mg/dL 9.7 Bilirubin, Total 0.2 - 1.3 mg/dL 0.5 Alkaline Phosphatase 34 - 123 U/L 69 AST 13 - 35 U/L 16 ALT 7 - 38 U/L 11 Glucose 74 - 99 mg/dL 118 (H) BUN 7 - 21 mg/dL 17 Creatinine 0.58 - 0.96 mg/dL 0.81 Sodium 136 - 144 mmol/L 141 Potassium 3.7 - 5.1 mmol/L 4.3 Chloride 97 - 105 mmol/L 102 CO2 22 - 30 mmol/L 22 Anion Gap 9 - 18 mmol/L 17 eGFR >=60 mL/min/1.73m 78 Total Cholesterol, Nonfasting <200 mg/dL 139 Triglycerides, Nonfasting <150 mg/dL 108 HDL Cholesterol, Nonfasting >39 mg/dL 69 LDL Cholesterol, Nonfasting <100 mg/dL 48 Non HDL Cholesterol, Nonfasting <130 mg/dL 70 VLDL Cholesterol, Nonfasting <30 mg/dL 22 Total Chol/HDL Ratio, Nonfasting <5.10 mg/dL 2.01 LDL/HDL Ratio, Nonfasting <2.54 mg/dL 0.70 Creatinine, Ur Random (UCRR) 20.0 - 300.0 mg/dL 334.0 (H) Albumin, Urine Random mg/L 96.2 Albumin/Creat Ratio <30 mg/g 29 Hemoglobin A1C 4.3 - 5.6 % 6.2 (H) Estimated Average Glucose mg/dL 131 BP Controlled (<130/80) Never done Hepatitis B Vaccine(1 of 3 - Risk 3-dose series) Never done RSV Vaccine(1 - 1-dose 60+ series) Never done Advance Directive Discussion Never done Dilated Retinal Exam due on 02/10/2023 Influenza Vaccine(1) due on 05/13/2023 Covid-19 Vaccine( season) due on 05/13/2023 Mammogram Screening due on 08/18/2023 Shingrix Vaccine(1 of 2) due on 01/11/2024 Diabetic Foot Exam due on 01/11/2024 HbA1C due on 01/11/2024 Annual PCP Team Chronic Disease Visit due on 02/05/2024 Urine Albumin:Creatinine Ratio due on 07/13/2024 LDL Cholesterol due on 07/13/2024 Colorectal Cancer Screening due on 07/20/2025 DTaP,Tdap,Td Vaccine(2 - Td or Tdap) due on 04/15/2027 Bone Density Screening Completed Hepatitis C Screening Completed Pneumococcal Vaccine: 65+ Completed ASSESSMENT/PLAN: 1. Type 2 diabetes mellitus without complication, without long-term current use of insulin (HCC) - ICD9: 250.00, ICD10: E11.9 (primary diagnosis) - Controlled - Continue current medications - Statin prescribed - rosuvastatin - Blood glucose monitoring on a once daily schedule - Discussed need for and benefit of weight loss. BMI 47.96 kg/(m^2) - Follow up in 6 months, sooner should any other issues arise. 2. Benign essential tremor - ICD9: 333.1, ICD10: G25.0 - stable on current regime - PRIMIDONE 50 MG TABLET 3. TIA (transient ischemic attack) - ICD9: 435.9, ICD10: G45.9 - no symptoms - continue treatment for HTN and Hyperlipidemia management - ROSUVASTATIN 20 MG TABLET 4. Gait instability - ICD9: 781.2, ICD10: R26.81 - continue to use cane for ambulation - PARKING FOR HANDICAPPED 5. Encounter for screening mammogram for breast cancer - ICD9: V76.12, ICD10: Z12.31 - EDEL SCREENING 6. Essential hypertension - ICD9: 401.9, ICD10: I10 - Controlled - Continue current medications - Recommend home blood pressure monitoring, to bring results to next visit - Encouraged sodium restriction, DASH or Mediterranean diet - Recommend regular aerobic exercise - Discussed need for and benefit of weight loss. BMI 47.96 kg/(m^2) - Follow up in 6 months for hypertension visit 7. Obstructive sleep apnea syndrome - ICD9: 327.23, ICD10: G47.33 - continue to use nightly - follow-up with pulmonology as recommended 8. Chronic respiratory failure with hypoxia (HCC) - ICD9: 518.83, 799.02, ICD10: J96.11 - continue to follow with pulmonology as recommended Jagdish Andrade APRN.MING Prescription instructions reviewed with patient as applicable. Patient advised if symptoms do not improve or if symptoms worsen sooner, to contact their primary care physician. Potential red flag symptoms discussed with the patient. Reviewed appropriate action plan to take if red flag symptoms occur. Patient agreeable to treatment plan. I spent a total of 25 minutes on the date of the service which included preparing to see the patient, [id number] patient care, completing clinical documentation, obtaining and/or reviewing separately obtained history, performing a medically appropriate examination, counseling and educating the patient/family/caregiver, and ordering medications, tests, or procedures. documented in this encounter [facility] 04-08-2023 Miscellaneous Notes Patient has been identified by name and date of : Yes Patient phones for refill(s): Requested Prescriptions Pending Prescriptions Disp Refills FLUoxetine (PROZAC) 40 mg capsule 180 capsule 1 Sig: Take 2 capsules by mouth once daily. Date of last office visit in primary care: TREVOR 02/04/23 NOV 07/19/23 Last 2 Encounter Wt Readings: Date: Wt: 03/29/2023 117.5 kg (259 lb) 02/04/2023 117.5 kg (259 lb) Please advise. Thank you. AUSTYN Galan documented in this encounter [facility] 03-29-2023 Note HNO ID: [id number] Author: Natalie Benitez APRN.STOCKING INSPECTOR Service: ? Author Type: Nurse Practitioner Type: Progress Notes Filed: 03/29/2023 5:23 PM Note Text: Subjective Leg Pain Pertinent negatives include no fever or itching. Priyanka Jiménez is a 72 year old female who presents with right lower leg pain for 2 weeks. She was trying to exercise and her leg started hurting. She quit exercising and has been resting her leg but it has not improved. She denies any trauma to the leg. She put a heating pad on it last night. She has no personal history of blood clots. She denies any recent long distance travel. She has remote history of uterine cancer and lung cancer. She does note the pain today started to radiate up the calf to her buttocks and right lower back. She also noticed some slight numbness in her right foot today. She has had sciatica in the past. Review of Systems Constitutional: Negative for chills and fever. Musculoskeletal: Negative for myalgias. See HPI Skin: Negative for itching and rash. BP 152/82 Pulse 90 Temp 36.3 ?C (97.4 ?F) Resp 18 Wt 117.5 kg (259 lb) SpO2 94% BMI 47.37 kg/m? . 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 Melara-hematology/oncology, Dr. Zheng-pulmonology Cataracts, bilateral Depression Diabetes (HCC) Type II Environmental allergies ??? Fibromyalgia Gout History of COVID-19 12/2020 Hypertension Morbid obesity (HCC) 01/06/2017 BMI 50.3 Neuropathy JAJA (obstructive sleep apnea) Bipap Osteopenia Pneumonia due to COVID-19 virus 12/09/2020 Dr. Zheng Thrombocytosis Seeing Dr. Melara; on hydroxyurea and blood thinners TIA (transient ischemic attack) 04/26/2016 TIA Uterine cancer (HCC) 1985 hysterectomy PAST SURGICAL HISTORY Procedure Laterality Date CATARACT EXTRACTION W/ INTRAOCULAR LENS IMPLANT HX Left 08/10/2017 CATARACT EXTRACTION W/ INTRAOCULAR LENS IMPLANT HX Right 08/25/2017 INCISE FINGER TENDON SHEATH Left 07/04/2020 Left middle trigger finger release PAST SURGICAL HISTORY OF Tonsillectomy PAST SURGICAL HISTORY OF Left knee surgery PAST SURGICAL HISTORY OF 05/17/1975 PAST SURGICAL HISTORY OF Ganglion cyst removed from left hand PAST SURGICAL HISTORY OF Cyst removed from right wrist PAST SURGICAL HISTORY OF 1983 Hysterectomy PAST SURGICAL HISTORY OF Oily deposits removed from scalp PAST SURGICAL HISTORY OF laser surgery for abnormal cells after hysterectomy THORACOSCOPY W/DX WEDGE RESEXN ANATO LUNG RESEXN Left 01/07/2017 VATS left lower lung wedge resection of carcinoid tumor ALLERGIES Lisinopril and Seasonal Allergies MEDICATIONS rosuvastatin (CRESTOR) 20 mg tablet Take 1 tablet by mouth daily at bedtime. losartan (COZAAR) 100 mg tablet Take 1 tablet by mouth once daily. amLODIPine (NORVASC) 10 mg tablet Take 1 tablet by mouth once daily. carvedilol (COREG) 6.25 mg tablet Take 1 tablet by mouth twice daily with meals. metFORMIN ER (GLUCOPHAGE XR) 500 mg 24 hr tablet Take 2 tablets by mouth twice daily before meals. primidone (MYSOLINE) 50 mg tablet Take 0.5 tablets by mouth daily at bedtime. FLUoxetine (PROZAC) 40 mg capsule Take 2 capsules by mouth once daily. albuterol HFA (VENTOLIN HFA) 90 mcg/actuation inhaler Inhale 2 Puffs as instructed every 4 hours as needed. albuterol (PROVENTIL) 2.5 mg /3 mL (0.083 %) nebulizer solution Use 3 mL via nebulizer every 6 hours as needed. OVER 5-15 MINUTES. FOR WHEEZING AND SHORTNESS OF BREATH. CALCIUM CARBONATE/VITAMIN D3 (CALCIUM + D ORAL) Take 2 tablets by mouth once daily. acetaminophen (TYLENOL EXTRA STRENGTH) 500 mg tablet Take 1 tablet by mouth every 8 hours as needed for Pain. aspirin 81 mg chewable tablet Take 81 mg by mouth once daily. FAMILY HISTORY Problem Relation Age of Onset Diabetes Mother Cataract Mother other (HTN) Mother Diabetes Sister other (CHF) Sister Cancer Sister d/t brain cancer other (Borderline Diabetes) Sister other (Tuberculosis) Brother d/t TB @ 10 months Social History Tobacco Use Smoking status: Former Packs/day: 0.75 Years: 1.00 Total pack years: 0.75 Types: Cigarettes Quit date: 08/25/1972 Years since quittin.6 Smokeless tobacco: Never Vaping Use Vaping Use: Never used Substance Use Topics Alcohol use: Yes Comment: Rare mixed drink Drug use: No Objective Physical Exam Vitals and nursing note reviewed. Constitutional: Appearance: Normal appearance. She is obese. Musculoskeletal: General: Tenderness present. No swelling, deformity or signs of injury. Legs: Skin: General: Skin is warm and dry. Findings: No erythema or rash. Neurological: Mental Status: She is alert. Pretest probability of deep vein thrombosis (Wells score) Clinical feature Score/ Patient's score Active cancer (treatment ongoing or w (more content not included)... [facility] 03-29-2023 Instructions Natalie Benitez APRN.MING - 03/29/2023 4:12 PM EDT ASSESSMENT/PLAN: 1. Pain in right lower leg - ICD9: 729.5, ICD10: M79.661 - US DVT LOWER RIGHT Radiologist IMPRESSION: Negative study for proximal DVT in the right lower extremity. No definite calf DVT in the right lower extremity in their limited visualized segments. Negative study for superficial thrombophlebitis in the imaged segments of the right lower extremity. Report Writer: JOSE Transcribe Date/Time: Mar 29 2023 4:54P Dictated by : DEMETRIUS MURRY MD - suspect sciatic nerve pain/inflammation - prednisone as directed. - rest, ice pack to lower back. - Follow-up with your PCP in 3-5 days if symptoms have not improved or sooner if symptoms worsen - Discussed red flags and need for immediate medical evaluation if any occur. - Discussed supportive care treatment with fluids, rest and analgesia. - Discussed expected course of illness Natalie Benitez APRN.STOCKING INSPECTOR SCIATICA: Your exam shows you have sciatica, a condition most often seen in patients with disc disease of the lower back. Sciatica causes pain to radiate from the lower back or buttock area down the leg. It results from pressure on nerve roots coming out of the spine when a disc deteriorates and pushes to one side. Often there is a history of back problems. In most cases sciatica improves greatly with conservative treatment. Most patients with it are completely better after 2-4 weeks of supportive care. Bed rest reduces the disc pressure greatly; sitting is the worst position since the pressure on the disc is over 5 times greater than it is while lying down. You should avoid bending, lifting, and all other activities which make the problem worse. After the pain improves, you may continue with normal activity, taking brief periods for bed rest throughout the day until you are back to normal. Aspirin, ibuprofen, or other anti-inflammatory drugs are often used to help control pain. Muscle relaxants may help by relieving spasm and providing mild sedation. Cold therapy and massage may also give significant relief. Spinal manipulation is not recommended because it can increase the degree of disc protrusion. Surgery is reserved for patients that do not improve with conservative treatment, or who have signs of severe nerve root pressure. You should see your doctor for follow up care as recommended. A program for back injury rehabilitation with stretching and strengthening exercises is an important part of management. Please call your doctor, a back specialist, or the emergency room right away if you notice increased pain, weakness, or numbness in your legs, or if you have any difficulty with bladder or bowel control. documented in this encounter [facility] 03-29-2023 History of Present illness Narrative Images from the original note were not included. Subjective Leg Pain Pertinent negatives include no fever or itching. Priyanka Jiménez is a 72 year old female who presents with right lower leg pain for 2 weeks. She was trying to exercise and her leg started hurting. She quit exercising and has been resting her leg but it has not improved. She denies any trauma to the leg. She put a heating pad on it last night. She has no personal history of blood clots. She denies any recent long distance travel. She has remote history of uterine cancer and lung cancer. She does note the pain today started to radiate up the calf to her buttocks and right lower back. She also noticed some slight numbness in her right foot today. She has had sciatica in the past. Review of Systems Constitutional: Negative for chills and fever. Musculoskeletal: Negative for myalgias. See HPI Skin: Negative for itching and rash. BP 152/82 Pulse 90 Temp 36.3 C (97.4 F) Resp 18 Wt 117.5 kg (259 lb) SpO2 94% BMI 47.37 kg/m . 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 Melara-hematology/oncology, Dr. Zheng-pulmonology Cataracts, bilateral Depression Diabetes (HCC) Type II Environmental allergies ??? Fibromyalgia Gout History of COVID-19 12/2020 Hypertension Morbid obesity (HCC) 01/06/2017 BMI 50.3 Neuropathy JAJA (obstructive sleep apnea) Bipap Osteopenia Pneumonia due to COVID-19 virus 12/09/2020 Dr. Zheng Thrombocytosis Seeing Dr. Melara; on hydroxyurea and blood thinners TIA (transient ischemic attack) 04/26/2016 TIA Uterine cancer (HCC) 1984 hysterectomy PAST SURGICAL HISTORY Procedure Laterality Date CATARACT EXTRACTION W/ INTRAOCULAR LENS IMPLANT HX Left 08/10/2017 CATARACT EXTRACTION W/ INTRAOCULAR LENS IMPLANT HX Right 08/25/2017 INCISE FINGER TENDON SHEATH Left 07/04/2020 Left middle trigger finger release PAST SURGICAL HISTORY OF Tonsillectomy PAST SURGICAL HISTORY OF Left knee surgery PAST SURGICAL HISTORY OF 05/17/1975 PAST SURGICAL HISTORY OF Ganglion cyst removed from left hand PAST SURGICAL HISTORY OF Cyst removed from right wrist PAST SURGICAL HISTORY OF 1983 Hysterectomy PAST SURGICAL HISTORY OF Oily deposits removed from scalp PAST SURGICAL HISTORY OF laser surgery for abnormal cells after hysterectomy THORACOSCOPY W/DX WEDGE RESEXN ANATO LUNG RESEXN Left 01/07/2017 VATS left lower lung wedge resection of carcinoid tumor ALLERGIES Lisinopril and Seasonal Allergies MEDICATIONS rosuvastatin (CRESTOR) 20 mg tablet Take 1 tablet by mouth daily at bedtime. losartan (COZAAR) 100 mg tablet Take 1 tablet by mouth once daily. amLODIPine (NORVASC) 10 mg tablet Take 1 tablet by mouth once daily. carvedilol (COREG) 6.25 mg tablet Take 1 tablet by mouth twice daily with meals. metFORMIN ER (GLUCOPHAGE XR) 500 mg 24 hr tablet Take 2 tablets by mouth twice daily before meals. primidone (MYSOLINE) 50 mg tablet Take 0.5 tablets by mouth daily at bedtime. FLUoxetine (PROZAC) 40 mg capsule Take 2 capsules by mouth once daily. albuterol HFA (VENTOLIN HFA) 90 mcg/actuation inhaler Inhale 2 Puffs as instructed every 4 hours as needed. albuterol (PROVENTIL) 2.5 mg /3 mL (0.083 %) nebulizer solution Use 3 mL via nebulizer every 6 hours as needed. OVER 5-15 MINUTES. FOR WHEEZING AND SHORTNESS OF BREATH. CALCIUM CARBONATE/VITAMIN D3 (CALCIUM + D ORAL) Take 2 tablets by mouth once daily. acetaminophen (TYLENOL EXTRA STRENGTH) 500 mg tablet Take 1 tablet by mouth every 8 hours as needed for Pain. aspirin 81 mg chewable tablet Take 81 mg by mouth once daily. FAMILY HISTORY Problem Relation Age of Onset Diabetes Mother Cataract Mother other (HTN) Mother Diabetes Sister other (CHF) Sister Cancer Sister d/t brain cancer other (Borderline Diabetes) Sister other (Tuberculosis) Brother d/t TB @ 10 months Social History Tobacco Use Smoking status: Former Packs/day: 0.75 Years: 1.00 Total pack years: 0.75 Types: Cigarettes Quit date: 08/25/1972 Years since quittin.6 Smokeless tobacco: Never Vaping Use Vaping Use: Never used Substance Use Topics Alcohol use: Yes Comment: Rare mixed drink Drug use: No Objective Physical Exam Vitals and nursing note reviewed. Constitutional: Appearance: Normal appearance. She is obese. Musculoskeletal: General: Tenderness present. No swelling, deformity or signs of injury. Legs: Skin: General: Skin is warm and dry. Findings: No erythema or rash. Neurological: Mental Status: She is alert. Pretest probability of deep vein thrombosis (Wells score) Clinical feature Score/ Patient's score Active cancer (treatment ongoing or within the previous six months or palliative) 1/0 Paralysis, paresis, or recent plaster immobilization of the lower extremities 1/0 Recently bedridden for more than three days or major surgery, within four weeks 1/0 Localized tenderness along the distribution of the deep venous system 1/1 Entire leg swollen 1/0 Calf swelling by more than 3 cm when compared to the asymptomatic leg (measured below tibial tuberosity) 1/0 Pitting edema (greater in the symptomatic leg) 1/0 Collateral superficial veins (nonvaricose) 1/0 Alternative diagnosis as likely or more likely than that of deep venous thrombosis -2/-2 Patient's total score= -1 High probability 3 or greater Moderate probability 1 or 2 Low probability 0 or less Modification: This clinical model has been modified to take one other clinical feature into account: a previously documented deep vein thrombosis (DVT) is given the score of 1. Using this modified scoring system, DVT is either likely or unlikely, as follows: DVT likely 2 or greater DVT unlikely 1 or less ASSESSMENT/PLAN: 1. Pain in right lower leg - ICD9: 729.5, ICD10: M79.661 - US DVT LOWER RIGHT Radiologist IMPRESSION: Negative study for proximal DVT in the right lower extremity. No definite calf DVT in the right lower extremity in their limited visualized segments. Negative study for superficial thrombophlebitis in the imaged segments of the right lower extremity. Report Writer: JOSE Transcribe Date/Time: Mar 29 2023 4:54P Dictated by : DEMETRIUS MURRY MD - suspect sciatic nerve pain/inflammation - prednisone as directed. - rest, ice pack to lower back. - Follow-up with your PCP in 3-5 days if symptoms have not improved or sooner if symptoms worsen - Discussed red flags and need for immediate medical evaluation if any occur. - Discussed supportive care treatment with fluids, rest and analgesia. - Discussed expected course of illness Natalie Benitez APRN.STOCKING INSPECTOR documented in this encounter [facility] 02-04-2023 Note HNO ID: [id number] Author: Patsy Gutierrez APRN.STOCKING INSPECTOR Service: ? Author Type: Nurse Practitioner Type: Progress Notes Filed: 02/04/2023 11:13 AM Note Text: Chief Complaint Patient presents with: Headache HPI Priyanka Jiménez is a 72 year old female who presents here today for Above Complaints.. Patient presents with new onset headaches. Patient reports a history of migraines in her 20's but none since then and states this does not feel like a migraine. Patient reports that at times it is so bad she can not get out of bed. Patient also reports intermittent dizziness as well as sensitivity to light. Patient has neuropathy and denies new or worsening numbness or tingling. Patient reports she has a history of TIA's. Past medical history, appointments, medications, allergies reviewed. 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 Melara-hematology/oncology, Dr. Zheng-pulmonology Cataracts, bilateral Depression Diabetes (HCC) Type II Environmental allergies ??? Fibromyalgia Gout History of COVID-19 12/2020 Hypertension Morbid obesity (HCC) 01/06/2017 BMI 50.3 Neuropathy JAJA (obstructive sleep apnea) Bipap Osteopenia Pneumonia due to COVID-19 virus 12/09/2020 Dr. Zheng Thrombocytosis Seeing Dr. Melara; on hydroxyurea and blood thinners TIA (transient ischemic attack) 04/26/2016 TIA Uterine cancer (HCC) 1985 hysterectomy Previous Surgical History PAST SURGICAL HISTORY Procedure Laterality Date CATARACT EXTRACTION W/ INTRAOCULAR LENS IMPLANT HX Left 08/10/2017 CATARACT EXTRACTION W/ INTRAOCULAR LENS IMPLANT HX Right 08/25/2017 INCISE FINGER TENDON SHEATH Left 07/04/2020 Left middle trigger finger release PAST SURGICAL HISTORY OF Tonsillectomy PAST SURGICAL HISTORY OF Left knee surgery PAST SURGICAL HISTORY OF 05/17/1975 PAST SURGICAL HISTORY OF Ganglion cyst removed from left hand PAST SURGICAL HISTORY OF Cyst removed from right wrist PAST SURGICAL HISTORY OF 1983 Hysterectomy PAST SURGICAL HISTORY OF Oily deposits removed from scalp PAST SURGICAL HISTORY OF laser surgery for abnormal cells after hysterectomy THORACOSCOPY W/DX WEDGE RESEXN ANATO LUNG RESEXN Left 01/07/2017 VATS left lower lung wedge resection of carcinoid tumor Family History FAMILY HISTORY Problem Relation Age of Onset Diabetes Mother Cataract Mother other (HTN) Mother Diabetes Sister other (CHF) Sister Cancer Sister d/t brain cancer other (Borderline Diabetes) Sister other (Tuberculosis) Brother d/t TB @ 10 months Patient Allergies ALLERGIES Allergen Reactions Lisinopril Cough Seasonal Allergies Intolerance Current Medications Current Outpatient Medications on File Prior to Visit Medication Sig rosuvastatin (CRESTOR) 20 mg tablet Take 1 tablet by mouth daily at bedtime. losartan (COZAAR) 100 mg tablet Take 1 tablet by mouth once daily. amLODIPine (NORVASC) 10 mg tablet Take 1 tablet by mouth once daily. carvedilol (COREG) 6.25 mg tablet Take 1 tablet by mouth twice daily with meals. metFORMIN ER (GLUCOPHAGE XR) 500 mg 24 hr tablet Take 2 tablets by mouth twice daily before meals. primidone (MYSOLINE) 50 mg tablet Take 0.5 tablets by mouth daily at bedtime. FLUoxetine (PROZAC) 40 mg capsule Take 2 capsules by mouth once daily. albuterol HFA (VENTOLIN HFA) 90 mcg/actuation inhaler Inhale 2 Puffs as instructed every 4 hours as needed. albuterol (PROVENTIL) 2.5 mg /3 mL (0.083 %) nebulizer solution Use 3 mL via nebulizer every 6 hours as needed. OVER 5-15 MINUTES. FOR WHEEZING AND SHORTNESS OF BREATH. CALCIUM CARBONATE/VITAMIN D3 (CALCIUM + D ORAL) Take 2 tablets by mouth once daily. acetaminophen (TYLENOL EXTRA STRENGTH) 500 mg tablet Take 1 tablet by mouth every 8 hours as needed for Pain. aspirin 81 mg chewable tablet Take 81 mg by mouth once daily. No current facility-administered medications on file prior to visit. Social History Social History Tobacco Use Smoking status: Former Packs/day: 0.75 Years: 1.00 Pack years: 0.75 Types: Cigarettes Quit date: 08/25/1972 Years since quittin.4 Smokeless tobacco: Never Vaping Use Vaping Use: Never used Substance Use Topics Alcohol use: Yes Comment: Rare mixed drink Drug use: No Review of Symptoms REVIEW OF SYSTEMS SEE HPI EXAM: BP 122/70 Pulse 64 Resp 16 Wt 117.5 kg (259 lb) BMI 47.37 kg/m? General Appearance: Well appearing, alert, in no acute distress, well-hydrated, well nourished.. Head: Normocephalic, no masses, lesions, tenderness or abnormalities. Eyes: Anicteric sclera. Pupils are equally round and reactive to light. Extraocular movements are intact. . Neurologic: Positive findings: sensory deficit Right foot increased tingling sensation. Health Maintenance List BP CON (more content not included)... [facility] 01-10-2023 Note HNO ID: [id number] Author: Jon Valenzuela MD Service: ? Author Type: Physician Type: Progress Notes Filed: 01/10/2023 1:22 PM Note Text: Chief Complaint Patient presents with: Follow Up HPI Priyanka Jiménez is a 72 year old female who presents here today for routine follow up. Accompanied today by . No falls in the last 6 months. DIABETES MELLITUS: Ms. Jiménez was last seen 6 months ago. Since our last visit she denies excessive thirst or increased frequency of urination, numbness, tingling or pain in extremities, new or unusual visual symptoms, and low sugar/hypoglycemic reactions.Follows a diabetic diet most of the time. She is compliant with medication(s) and is tolerating med(s) without any side effects. She reports checking her glucose on a once a day schedule with sugars in the fasting <130 range. Patient's last HgA1C was Hemoglobin A1C (%) Date Value 01/07/2023 6.4 07/06/2022 6.1 10/05/2021 6.3 04/06/2021 6.6 ) Last Ophthalmology exam was within the past 12 months Last Podiatry exam was more than 12 months ago TIA: patient had follow up with neurology on 06/14. Advised to continue ASA and current regimen. Has not had any recurrent symptoms. Denies slurred speech, facial droop, numbness/tingling/weakness. F/u PRN with neurology. Depression/anxiety: controlled on Prozac without SI/HI, panic symptoms. JAJA: using Bipap on a nightly basis waking up well rested and not snoring. Managed by Dr. Zheng with last OV about a week ago. Still on oxygen PRN since she had COVID pneumonia. Tremor improved with Primidone. Would like to continue current regimen. Past medical history, appointments, medications, allergies reviewed. 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 Melara-hematology/oncology, Dr. Zheng-pulmonology Cataracts, bilateral Depression Diabetes (HCC) Type II Environmental allergies ??? Fibromyalgia Gout History of COVID-19 12/2020 Hypertension Morbid obesity (HCC) 01/06/2017 BMI 50.3 Neuropathy JAJA (obstructive sleep apnea) Bipap Osteopenia Pneumonia due to COVID-19 virus 12/09/2020 Dr. Zheng Thrombocytosis Seeing Dr. Melara; on hydroxyurea and blood thinners TIA (transient ischemic attack) 04/26/2016 TIA Uterine cancer (HCC) 1985 hysterectomy Previous Surgical History PAST SURGICAL HISTORY Procedure Laterality Date CATARACT EXTRACTION W/ INTRAOCULAR LENS IMPLANT HX Left 08/10/2017 CATARACT EXTRACTION W/ INTRAOCULAR LENS IMPLANT HX Right 08/25/2017 INCISE FINGER TENDON SHEATH Left 07/04/2020 Left middle trigger finger release PAST SURGICAL HISTORY OF Tonsillectomy PAST SURGICAL HISTORY OF Left knee surgery PAST SURGICAL HISTORY OF 05/17/1975 PAST SURGICAL HISTORY OF Ganglion cyst removed from left hand PAST SURGICAL HISTORY OF Cyst removed from right wrist PAST SURGICAL HISTORY OF 1983 Hysterectomy PAST SURGICAL HISTORY OF Oily deposits removed from scalp PAST SURGICAL HISTORY OF laser surgery for abnormal cells after hysterectomy THORACOSCOPY W/DX WEDGE RESEXN ANATO LUNG RESEXN Left 01/07/2017 VATS left lower lung wedge resection of carcinoid tumor Family History FAMILY HISTORY Problem Relation Age of Onset Diabetes Mother Cataract Mother other (HTN) Mother Diabetes Sister other (CHF) Sister Cancer Sister d/t brain cancer other (Borderline Diabetes) Sister other (Tuberculosis) Brother d/t TB @ 10 months Patient Allergies ALLERGIES Allergen Reactions Lisinopril Cough Seasonal Allergies Intolerance Current Medications Current Outpatient Medications on File Prior to Visit Medication Sig FLUoxetine (PROZAC) 40 mg capsule Take 2 capsules by mouth once daily. rosuvastatin (CRESTOR) 20 mg tablet Take 1 tablet by mouth daily at bedtime. carvedilol (COREG) 6.25 mg tablet Take 1 tablet by mouth twice daily with meals. primidone (MYSOLINE) 50 mg tablet Take 0.5 tablets by mouth daily at bedtime. losartan (COZAAR) 100 mg tablet Take 1 tablet by mouth once daily. amLODIPine (NORVASC) 10 mg tablet Take 1 tablet by mouth once daily. metFORMIN ER (GLUCOPHAGE XR) 500 mg 24 hr tablet Take 2 tablets by mouth twice daily before meals. albuterol HFA (VENTOLIN HFA) 90 mcg/actuation inhaler Inhale 2 Puffs as instructed every 4 hours as needed. albuterol (PROVENTIL) 2.5 mg /3 mL (0.083 %) nebulizer solution Use 3 mL via nebulizer every 6 hours as needed. OVER 5-15 MINUTES. FOR WHEEZING AND SHORTNESS OF BREATH. acetaminophen (TYLENOL EXTRA STRENGTH) 500 mg tablet Take 1 tablet by mouth every 8 hours as needed for Pain. aspirin 81 mg chewable tablet Take 81 mg by mouth once daily. CALCIUM CARBONATE/VITAMIN D3 (CALCIUM + D ORAL) Take 2 tablets by mouth once daily. No current facility-administered medications on file prior to visit. Social His (more content not included)... [facility] 01-10-2023 History of Present illness Narrative Chief Complaint Patient presents with: Follow Up HPI Priyanka Jiménez is a 72 year old female who presents here today for routine follow up. Accompanied today by . No falls in the last 6 months. DIABETES MELLITUS: Ms. Jiménez was last seen 6 months ago. Since our last visit she denies excessive thirst or increased frequency of urination, numbness, tingling or pain in extremities, new or unusual visual symptoms, and low sugar/hypoglycemic reactions.Follows a diabetic diet most of the time. She is compliant with medication(s) and is tolerating med(s) without any side effects. She reports checking her glucose on a once a day schedule with sugars in the fasting <130 range. Patient's last HgA1C was Hemoglobin A1C (%) Date Value 01/07/2023 6.4 07/06/2022 6.1 10/05/2021 6.3 04/06/2021 6.6 ) Last Ophthalmology exam was within the past 12 months Last Podiatry exam was more than 12 months ago TIA: patient had follow up with neurology on 06/14. Advised to continue ASA and current regimen. Has not had any recurrent symptoms. Denies slurred speech, facial droop, numbness/tingling/weakness. F/u PRN with neurology. Depression/anxiety: controlled on Prozac without SI/HI, panic symptoms. JAJA: using Bipap on a nightly basis waking up well rested and not snoring. Managed by Dr. Zheng with last OV about a week ago. Still on oxygen PRN since she had COVID pneumonia. Tremor improved with Primidone. Would like to continue current regimen. Past medical history, appointments, medications, allergies reviewed. 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 Melara-hematology/oncology, Dr. Zheng-pulmonology Cataracts, bilateral Depression Diabetes (HCC) Type II Environmental allergies ??? Fibromyalgia Gout History of COVID-19 12/2020 Hypertension Morbid obesity (HCC) 01/06/2017 BMI 50.3 Neuropathy JAJA (obstructive sleep apnea) Bipap Osteopenia Pneumonia due to COVID-19 virus 12/09/2020 Dr. Zheng Thrombocytosis Seeing Dr. Melara; on hydroxyurea and blood thinners TIA (transient ischemic attack) 04/26/2016 TIA Uterine cancer (HCC) 1985 hysterectomy Previous Surgical History PAST SURGICAL HISTORY Procedure Laterality Date CATARACT EXTRACTION W/ INTRAOCULAR LENS IMPLANT HX Left 08/10/2017 CATARACT EXTRACTION W/ INTRAOCULAR LENS IMPLANT HX Right 08/25/2017 INCISE FINGER TENDON SHEATH Left 07/04/2020 Left middle trigger finger release PAST SURGICAL HISTORY OF Tonsillectomy PAST SURGICAL HISTORY OF Left knee surgery PAST SURGICAL HISTORY OF 05/17/1975 PAST SURGICAL HISTORY OF Ganglion cyst removed from left hand PAST SURGICAL HISTORY OF Cyst removed from right wrist PAST SURGICAL HISTORY OF 1983 Hysterectomy PAST SURGICAL HISTORY OF Oily deposits removed from scalp PAST SURGICAL HISTORY OF laser surgery for abnormal cells after hysterectomy THORACOSCOPY W/DX WEDGE RESEXN ANATO LUNG RESEXN Left 01/07/2017 VATS left lower lung wedge resection of carcinoid tumor Family History FAMILY HISTORY Problem Relation Age of Onset Diabetes Mother Cataract Mother other (HTN) Mother Diabetes Sister other (CHF) Sister Cancer Sister d/t brain cancer other (Borderline Diabetes) Sister other (Tuberculosis) Brother d/t TB @ 10 months Patient Allergies ALLERGIES Allergen Reactions Lisinopril Cough Seasonal Allergies Intolerance Current Medications Current Outpatient Medications on File Prior to Visit Medication Sig FLUoxetine (PROZAC) 40 mg capsule Take 2 capsules by mouth once daily. rosuvastatin (CRESTOR) 20 mg tablet Take 1 tablet by mouth daily at bedtime. carvedilol (COREG) 6.25 mg tablet Take 1 tablet by mouth twice daily with meals. primidone (MYSOLINE) 50 mg tablet Take 0.5 tablets by mouth daily at bedtime. losartan (COZAAR) 100 mg tablet Take 1 tablet by mouth once daily. amLODIPine (NORVASC) 10 mg tablet Take 1 tablet by mouth once daily. metFORMIN ER (GLUCOPHAGE XR) 500 mg 24 hr tablet Take 2 tablets by mouth twice daily before meals. albuterol HFA (VENTOLIN HFA) 90 mcg/actuation inhaler Inhale 2 Puffs as instructed every 4 hours as needed. albuterol (PROVENTIL) 2.5 mg /3 mL (0.083 %) nebulizer solution Use 3 mL via nebulizer every 6 hours as needed. OVER 5-15 MINUTES. FOR WHEEZING AND SHORTNESS OF BREATH. acetaminophen (TYLENOL EXTRA STRENGTH) 500 mg tablet Take 1 tablet by mouth every 8 hours as needed for Pain. aspirin 81 mg chewable tablet Take 81 mg by mouth once daily. CALCIUM CARBONATE/VITAMIN D3 (CALCIUM + D ORAL) Take 2 tablets by mouth once daily. No current facility-administered medications on file prior to visit. Social History Social History Tobacco Use Smoking status: Former Packs/day: 0.75 Years: 1.00 Pack years: 0.75 Types: Cigarettes Quit date: 08/25/1972 Years since quittin.4 Smokeless tobacco: Never Vaping Use Vaping Use: Never used Substance Use Topics Alcohol use: Yes Comment: Rare mixed drink Drug use: No Review of Symptoms REVIEW OF SYSTEMS GENERAL: No weight loss, malaise or fevers RESPIRATORY: Negative for cough, hemoptysis, wheezing, COPD, dyspnea or shortness of breath CARDIOVASCULAR: Negative for chest pain, leg swelling, hypertension, CHF or palpitations GI: No nausea, vomiting, or diarrhea SKIN: Negative for lesions, rash, and itching EXAM: BP 120/80 Pulse 62 Resp 16 Ht 157.5 cm (5' 2 ) Wt 118.4 kg (261 lb) BMI 47.74 kg/m General Appearance: Well appearing, alert, in no [...] discoloration, clubbing or cyanosis. Good capillary refill. . Feet: Shoes and socks removed, No deformities, ulcers, calluses, normal distal pulses, and sensitive to 10 gm monofilament Health Maintenance List BP CONTROLLED (<130/80) Never done SHINGRIX VACCINE(1 of 2) Never done ADVANCE DIRECTIVE DISCUSSION Never done DIABETIC FOOT EXAM due on 10/05/2022 DILATED RETINAL EXAM due on 02/10/2023 URINE ALBUMIN:CREATININE RATIO due on 04/02/2023 LDL CHOLESTEROL due on 05/04/2023 HBA1C due on 07/09/2023 ANNUAL PCP TEAM CHRONIC DISEASE VISIT due on 07/21/2023 MAMMOGRAM due on 08/18/2023 COLORECTAL CANCER SCREENING due on 07/20/2025 DTAP,TDAP,TD(2 - Td or Tdap) due on 04/15/2027 BONE DENSITY Completed INFLUENZA Completed HEPATITIS C SCREENING Completed COVID-19 VACCINE Completed PNEUMOCOCCAL: 65+ Completed Data reviewed Component Latest Ref Rng & Units 05/04/2022 07/06/2022 08/19/2022 01/07/2023 WBC 3.70 - 11.00 k/uL 9.84 RBC 3.90 - 5.20 m/uL 4.57 Hemoglobin 11.5 - 15.5 g/dL 12.6 Hematocrit 36.0 - 46.0 % 38.7 MCV 80.0 - 100.0 fL 84.7 MCH 26.0 - 34.0 pg 27.6 MCHC 30.5 - 36.0 g/dL 32.6 RDW-CV 11.5 - 15.0 % 14.9 Platelet Count 150 - 400 k/uL 342 MPV 9.0 - 12.7 fL 9.9 Neut% % 67.9 Abs Neut (ANC) 1.45 - 7.50 k/uL 6.68 Lymph% % 20.0 Abs Lymph 1.00 - 4.00 k/uL 1.97 Bullock% % 7.9 Abs Bullock <0.87 k/uL 0.78 Eosin% % 3.3 Abs Eosin <0.46 k/uL 0.32 Baso% % 0.7 Abs Baso <0.11 k/uL 0.07 Immature Gran % % 0.2 IMMATURE GRANS (ABS) <0.10 k/uL <0.03 NRBC /100 WBC 0.0 Absolute nRBC <0.01 k/uL <0.01 DTYPE Auto Protein, Total 6.3 - 8.0 g/dL 7.6 7.1 Albumin 3.9 - 4.9 g/dL 4.4 4.1 Calcium 8.5 - 10.2 mg/dL 10.1 8.8 Bilirubin, Total 0.2 - 1.3 mg/dL 0.4 0.5 Alkaline Phosphatase 34 - 123 U/L 75 73 AST 13 - 35 U/L 22 26 ALT 7 - 38 U/L 20 17 Glucose 74 - 99 mg/dL 105 (H) 125 (H) BUN 7 - 21 mg/dL 17 14 Creatinine 0.58 - 0.96 mg/dL 0.85 0.81 Sodium 136 - 144 mmol/L 137 136 Potassium 3.7 - 5.1 mmol/L 4.1 4.2 Chloride 97 - 105 mmol/L 102 100 CO2 22 - 30 mmol/L 25 24 Anion Gap 9 - 18 mmol/L 10 12 eGFR >=60 mL/min/1.73m 74 78 Total Cholesterol, Nonfasting <200 mg/dL 165 Triglycerides, Nonfasting <150 mg/dL 131 HDL Cholesterol, Nonfasting >39 mg/dL 65 LDL Cholesterol, Nonfasting <100 mg/dL 74 Non HDL Cholesterol, Nonfasting <130 mg/dL 100 VLDL Cholesterol, Nonfasting <30 mg/dL 26 Total Chol/HDL Ratio, Nonfasting <5.10 mg/dL 2.54 LDL/HDL Ratio, Nonfasting <2.54 mg/dL 1.14 Hemoglobin A1C 4.3 - 5.6 % 6.1 (H) 6.4 (H) Estimated Average Glucose mg/dL 128 137 LD 135 - 214 U/L 185 ASSESSMENT/PLAN: 1. Type 2 diabetes mellitus without complication, without long-term current use of insulin (HCC) - ICD9: 250.00, ICD10: E11.9 (primary diagnosis) - Controlled - Continue current medications - Blood glucose monitoring on a once daily schedule - Counseled on healthy diet and regular exercise - Discussed need for and benefit of weight loss. BMI 47.74 kg/(m^2) - Discussed diabetic education issues of diabetes complications and monitoring required, hypoglycemic/hyperglycemic symptoms, medication-specific side effects and monitoring, and diabetic sick day rules - Follow up in 6 months, sooner should any other issues arise. - METFORMIN ER 500 MG TABLET,EXTENDED RELEASE 24 HR - HGB A1C - CBC + DIFF - LIPID PANEL, NONFASTING - ALBUMIN/CREAT RATIO RND UR 2. Essential hypertension - ICD9: 401.9, ICD10: I10 - good control - Continue current medication(s) - Encouraged dietary sodium restriction/DASH diet - Recommended regular aerobic exercise. - Reviewed risks of HTN and principles of treatment - Goal of BP <140/90 - AMLODIPINE 10 MG TABLET - COMP METABOLIC PANEL - CBC + DIFF 3. Benign essential tremor - ICD9: 333.1, ICD10: G25.0 Improved with primidone. - PRIMIDONE 50 MG TABLET 4. Transient cerebral ischemia, unspecified type - ICD9: 435.9, ICD10: G45.9 No recurrent symptoms. Continue secondary prevention. 5. Obstructive sleep apnea syndrome - ICD9: 327.23, ICD10: G47.33 Controlled in [facility]. 6. Morbid obesity with BMI of 50.0-59.9, adult (HCC) - ICD9: 278.01, V85.43, ICD10: E66.01, Z68.43 Stable - Behavioral intervention 7. Anxiety - ICD9: 300.00, ICD10: F41.9 Controlled on Prozac 80 mg daily. 8. Moderate episode of recurrent major depressive disorder (HCC) - ICD9: 296.32, ICD10: F33.1 Controlled on Prozac 80 mg daily. Jon Valenzuela MD documented in this encounter [facility] 01-04-2023 Note Patient Outreach (IN [facility]) PRIYANKA JIMÉNEZ ([id number]) 1950 F Date Time Provider Department 01/04/23 JON VALENZUELA During your visit today, we recorded the following information about you: Allergies As of Date: 01/04/2023 Noted Allergy Reaction LISINOPRIL 10/20/2019 3 - Cough SEASONAL ALLERGIES 05/11/2016 5 - Intolerance Date Reviewed: 08/20/2022 Reviewed by: Laine Acevedo MA - Fully Assessed Visit Diagnosis:Type 2 diabetes mellitus, without long-term current use of insulin (HCC) [E11.9] Order(s):HGB A1C [[id number]] Order #: [id number] FUTURE Prescriptions as of 01/07/2023 - FLUoxetine (PROZAC) 40 mg capsule Take 2 capsules by mouth once daily. - rosuvastatin (CRESTOR) 20 mg tablet Take 1 tablet by mouth daily at bedtime. - carvedilol (COREG) 6.25 mg tablet Take 1 tablet by mouth twice daily with meals. - primidone (MYSOLINE) 50 mg tablet Take 0.5 tablets by mouth daily at bedtime. - losartan (COZAAR) 100 mg tablet Take 1 tablet by mouth once daily. - amLODIPine (NORVASC) 10 mg tablet Take 1 tablet by mouth once daily. - metFORMIN ER (GLUCOPHAGE XR) 500 mg 24 hr tablet Take 2 tablets by mouth twice daily before meals. - albuterol HFA (VENTOLIN HFA) 90 mcg/actuation inhaler Inhale 2 Puffs as instructed every 4 hours as needed. - albuterol (PROVENTIL) 2.5 mg /3 mL (0.083 %) nebulizer solution Use 3 mL via nebulizer every 6 hours as needed. OVER 5-15 MINUTES. FOR WHEEZING AND SHORTNESS OF BREATH. - CALCIUM CARBONATE/VITAMIN D3 (CALCIUM + D ORAL) Take 2 tablets by mouth once daily. - acetaminophen (TYLENOL EXTRA STRENGTH) 500 mg tablet Take 1 tablet by mouth every 8 hours as needed for Pain. - aspirin 81 mg chewable tablet Take 81 mg by mouth once daily. Problem List As Of Date 01/04/2023 Noted Resolved Essential thrombocytosis (HCC) [D47.3] 05/11/2016 12/05/2020 Transient cerebral ischemia [G45.9] 05/11/2016 Essential hypertension [I10] 05/11/2016 Hypercholesteremia [E78.00] 05/11/2016 Type 2 diabetes mellitus, without long-term cur*05/11/2016 History of uterine cancer [Z85.42] 05/11/2016 Dry eye syndrome of both eyes [H04.123] 10/05/2016 Astigmatism of eye [H52.209] 10/05/2016 10/11/2016 Combined forms of age-related cataract, right e*10/05/2016 01/21/2020 Regular astigmatism of both eyes [H52.223] 10/11/2016 Meibomian gland dysfunction (MGD) of upper and *10/11/2016 Carcinoid tumor of left lung [D3A.090] 11/16/2016 Encounter for preoperative anesthesiology asses*01/06/2017 12/07/2017 Neuroendocrine tumor [D3A.8] 01/07/2017 12/05/2020 DISPOSITION AND FOLLOW-UP 01/07/2017 01/09/2017 Mechanical venous thromboembolism (VTE) prophyl*01/07/2017 01/09/2017 Pain, postoperative, acute [G89.18] 01/07/2017 01/21/2020 Morbid obesity with BMI of 50.0-59.9, adult (HC*01/07/2017 Obstructive sleep apnea syndrome [G47.33] 01/07/2017 Osteopenia [M85.80] Status post cataract extraction and insertion o*08/10/2017 History of lung cancer [Z85.118] 08/16/2017 Status post cataract extraction and insertion o*08/26/2017 Type 2 diabetes mellitus without retinopathy (H*01/03/2018 01/21/2020 Vitreous floaters of both eyes [H43.393] 01/03/2018 Pseudophakia of both eyes [Z96.1] 01/03/2018 BPPV (benign paroxysmal positional vertigo) [H8*03/21/2018 Type 2 diabetes mellitus with diabetic neuropat* 12/05/2020 Dermatochalasis of both upper eyelids [H02.831,*01/03/2019 Moderate episode of recurrent major depressive *12/05/2020 Anxiety [F41.9] 04/05/2022 Lacunar infarction (HCC) [I63.81] 06/14/2022 Encounter Status:Closed by EPIC, PRODUSER on 01/07/23 [facility] 10-27-2022 Miscellaneous Notes Patient phones requesting refills as follows: Requested Prescriptions Pending Prescriptions Disp Refills rosuvastatin (CRESTOR) 20 mg tablet 30 tablet 2 Sig: Take 1 tablet by mouth daily at bedtime. TREVOR 07/21/2022 NOV 01/04/2023 Please review and advise. Lucy Foster LPN documented in this encounter [facility] 08-20-2022 History of Present illness Narrative PATIENT NAME: Priyanka Jiménez. CLINIC NO: [id number]. ATTENDING PHYSICIAN: Eron Melara MD. 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 HPI: 72-year-old obese female with history of hypertension, type 2 diabetes mellitus, hypercholesterolemia, and asthma who presented last month from a TIA. She presented to emergency room because of left sided weakness and numbness with lightheadedness and slurred speech. She was not able to move her left arm and leg. Initially and subsequently improved. Patient did not fall or has loss of consciousness. She was not feeling well for a week prior to her TIA. She has a family history of cancer. She had uterine cancer 30 years ago and she had a complete hysterectomy followed by radiation therapy. Patient had a mammogram earlier this year and it was normal. She never had a colonoscopy screening. Patient has mostly recovered from her TIA. 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 Patient was also told that she may have sleep apnea and may require CPAP treatment. Patient had surgery for stage II B, [id number] typical carcinoid in 01/07/2017. SURGICAL HX: 01/07/2017: Left video-assisted thoracic surgery. Wedge resection of the left lower lobe. Surgical Pathology: FINAL DIAGNOSIS Lung, left lower lobe, wedge resection - Typical carcinoid tumor (3.7 cm). (See synoptic template). - Metastatic carcinoid tumor, involving one of one intraparenchymal lymph node (09/12). - Parenchymal margin negative. SM/rw 01/10/2017 Interim history: Patient has been doing well on ASA. She has no fever, chills or night sweats. No bone pain or early satiety. She has no cough, wheezing or shortness of breath. She also used BiPAP at night for sleep apnea. She has no hot flashes, night sweat or diarrhea. All medications & allergies updated and reviewed by me. REVIEW OF SYSTEMS: CONSTITUTIONAL: No fevers, chills, nightsweats, unintended weight loss HEENT: Denies frequent or severe heaches, nasal congestion/sinus symptoms, problematic allergy problems. EYES: No diplopia or blurry vision. CARDIOVASCULAR: No chest pain, dyspnea, palpitations, orthopnea, PND, ankle edema. PULM: No dyspnea, unexplained cough. GI: No dysphagia/odynophagia, problematic reflux, constipation, diarrhea, changes in stool habits, hematochezia, melena. : No new urinary complaints, including dysuria, gross hematuria or pyuria. NEURO: No new balance problems, peripheral weakness/ +paresthesias or numbness of lower extremity. MUSC-SKEL: No new joint pain, swelling, or erythema. PSY: No concerns regarding depression, anxiety or panic. INTEGUMENTARY: No new skin changes (rash, new or changing mole, new growth) PHYSICAL EXAMINATION: 72 year-old female in no acute distress BP 142/77 Pulse 73 Temp (Src) 98.7 (Temporal) Ht 5' 1.5 (1.56m) Wt 261 lb (118.4kg) SpO2 93% BMI 48.52 kg/(m^2). HEENT: Head is normocephalic, atraumatic. Sclerae white, conjunctivae pink. PEERL. EOMs are intact. Oropharynx is benign. LYMPHATICS: There is no palpable adenopathy in the neck, supraclavicular region, axillae, or groin. BREASTS: Normal no palpable mass, nodules, LUNGS: Thoracotomy scar is clean and healed. Lungs are clear to percussion and auscultation. Expiratory wheezing in the left lung base. HEART: Heart is normal without murmurs, gallops, or rubs. ABDOMEN: Obese, Soft and nontender without organomegaly. No masses can be palpated. EXTREMITIES: Are without edema. 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 No sensory deficit, normal gait. LABORATORY DATA: Component Latest Ref Rng & Units 08/19/2022 WBC 3.70 - 11.00 k/uL 9.84 RBC 3.90 - 5.20 m/uL 4.57 Hemoglobin 11.5 - 15.5 g/dL 12.6 Hematocrit 36.0 - 46.0 % 38.7 MCV 80.0 - 100.0 fL 84.7 MCH 26.0 - 34.0 pg 27.6 MCHC 30.5 - 36.0 g/dL 32.6 RDW-CV 11.5 - 15.0 % 14.9 Platelet Count 150 - 400 k/uL 342 MPV 9.0 - 12.7 fL 9.9 Neut% % 67.9 Abs Neut (ANC) 1.45 - 7.50 k/uL 6.68 Lymph% % 20.0 Abs Lymph 1.00 - 4.00 k/uL 1.97 Bullock% % 7.9 Abs Bullock <0.87 k/uL 0.78 Eosin% % 3.3 Abs Eosin <0.46 k/uL 0.32 Baso% % 0.7 Abs Baso <0.11 k/uL 0.07 Immature Gran % % 0.2 IMMATURE GRANS (ABS) <0.10 k/uL <0.03 NRBC /100 WBC 0.0 Absolute nRBC <0.01 k/uL <0.01 DTYPE Auto Component Latest Ref Rng & Units 08/19/2022 Protein, Total 6.3 - 8.0 g/dL 7.1 Albumin 3.9 - 4.9 g/dL 4.1 Calcium 8.5 - 10.2 mg/dL 8.8 Bilirubin, Total 0.2 - 1.3 mg/dL 0.5 Alkaline Phosphatase 34 - 123 U/L 73 AST 13 - 35 U/L 26 ALT 7 - 38 U/L 17 Glucose 74 - 99 mg/dL 125 (H) BUN 7 - 21 mg/dL 14 Creatinine 0.58 - 0.96 mg/dL 0.81 Sodium 136 - 144 mmol/L 136 Potassium 3.7 - 5.1 mmol/L 4.2 Chloride 97 - 105 mmol/L 100 CO2 22 - 30 mmol/L 24 Anion Gap 9 - 18 mmol/L 12 eGFR >=60 mL/min/1.73m 78 LD 135 - 214 U/L 185 CXR: No evidence disease. ASSESSMENT/PLAN: 72-year-old lady with history of reactive thrombocytosis secondary to carcinoid tumor. 1) History of thrombocytosis (JAK2 negative-rule out myeloproliferative disease) - Her platelet count is normal again today. 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 Status post resection on 01/07/17. AFSHIN on CXR. Plan: -Age-appropriate cancer screening including annual mammogram and screening colonoscopy recommended and follow up with PCP Portions of this documentation were copied and pasted from previous office visit notes in order to provide a cohesive continuity of the history. The note has been reviewed and edited and updated as necessary. Eron Melara MD Cc: Dr. Jon Valenzuela documented in this encounter [facility] 08-18-2022 Miscellaneous Notes August 19, 2022 PID: [id number] Priyanka Jiménez [address] [place] [address] Dear Ms. Jiménez, We are pleased to inform you that the results of your recent breast imaging exam on 08/18/2022 are normal. Early detection of cancer is very important. We also understand recommendations regarding breast cancer screening are controversial. Please discuss with your primary care provider which strategy is best for you and whether a mammogram is right for you. Your imaging studies and report will be kept on file at [facility] as part of your permanent medical record and are available for your continuing care. Thank you for allowing us to help in meeting your health care needs. Sincerely, Dr. Graham Interpreting Radiologist [facility] (Normal over 40) documented in this encounter [facility] 07-30-2022 Miscellaneous Notes Patient phones requesting refills as follows: Requested Prescriptions Pending Prescriptions Disp Refills rosuvastatin (CRESTOR) 20 mg tablet 30 tablet 2 Sig: Take 1 tablet by mouth daily at bedtime. TREVOR 07/21/2022 NOV 10/06/2022 Please review and advise. MELODY Velasco documented in this encounter [facility] 07-21-2022 Miscellaneous Notes Pt notified of xray results. Lyndsay Bustos Ma ----- Message from Jon Valenzuela MD sent at 07/21/2022 11:51 AM EST ----- CXR negative for pneumonia. Continue treatment as discussed in office. documented in this encounter [facility] 07-21-2022 History of Present illness Narrative Chief Complaint Patient presents with: Illness HPI Priyanka Jiménez is a 72 year old female who presents here today for chest congestion. Pt calls in with chest congestion, severe cough productive yellow sputum, SOB with exertion, sore throat, head congestion, fatigue and runny nose started Tuesday07/17/22. Denies any fever, myalgias, new loss of taste/smell. She has had COVID in past and was treated with Prednisone. Her O2 stat at home was 89 resting and 85 with exertion yesterday. She normally runs between 92-98. She uses oxygen prn. 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 States that she was told to use her albuterol and oxygen PRN and call back if she needed seen in the office. Pt was offered appt 07/20/22 with PCP but pt declined because she had to go vote . Pt uses Albuterol every 6 hours in nebulizer, Albuterol inhaler every 4 hours prn, and tylenol. She has been using Generic Zyrtec. Has not COVID tested at home. Grandkids sick with viral URI symptoms. Symptoms not improved today. Has prednisone taper at home we prescribed previously, but has not started yet. Past medical history, appointments, medications, allergies reviewed. 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 Melara-hematology/oncology, Dr. Zheng-pulmonology Cataracts, bilateral Depression Diabetes (HCC) Type II Environmental allergies ??? Fibromyalgia Gout History of COVID-19 12/2020 Hypertension Morbid obesity (HCC) 01/06/2017 BMI 50.3 Neuropathy JAJA (obstructive sleep apnea) [facility] Osteopenia Pneumonia due to COVID-19 virus 12/09/2020 Dr. Zheng Thrombocytosis Seeing Dr. Melara; on hydroxyurea and blood thinners TIA (transient ischemic attack) 04/26/2016 TIA Uterine cancer (HCC) 1985 hysterectomy Previous Surgical History PAST SURGICAL HISTORY Procedure Laterality Date CATARACT EXTRACTION W/ INTRAOCULAR LENS IMPLANT HX Left 08/10/2017 CATARACT EXTRACTION W/ INTRAOCULAR LENS IMPLANT HX Right 08/25/2017 INCISE FINGER TENDON SHEATH Left 07/04/2020 Left middle trigger finger release PAST SURGICAL HISTORY OF Tonsillectomy PAST SURGICAL HISTORY OF Left knee surgery PAST SURGICAL HISTORY OF 05/17/1975 PAST SURGICAL HISTORY OF Ganglion cyst removed from left hand PAST SURGICAL HISTORY OF Cyst removed from right wrist PAST SURGICAL HISTORY OF 1983 Hysterectomy PAST SURGICAL HISTORY OF Oily deposits removed from scalp PAST SURGICAL HISTORY OF laser surgery for abnormal cells after hysterectomy THORACOSCOPY W/DX WEDGE RESEXN ANATO LUNG RESEXN Left 01/07/2017 VATS left lower lung wedge resection of carcinoid tumor Family History FAMILY HISTORY Problem Relation Age of Onset Diabetes Mother Cataract Mother other (HTN) Mother Diabetes Sister other (CHF) Sister Cancer Sister d/t brain cancer other (Borderline Diabetes) Sister other (Tuberculosis) Brother d/t TB @ 10 months Patient Allergies ALLERGIES Allergen Reactions Lisinopril Cough Seasonal Allergies Intolerance Current Medications Current Outpatient Medications on File Prior to Visit Medication Sig carvedilol (COREG) 6.25 mg tablet Take 1 tablet by mouth twice daily with meals. primidone (MYSOLINE) 50 mg tablet Take 0.5 tablets by mouth daily at bedtime. losartan (COZAAR) 100 mg tablet Take 1 tablet by mouth once daily. amLODIPine (NORVASC) 10 mg tablet Take 1 tablet by mouth once daily. metFORMIN ER (GLUCOPHAGE XR) 500 mg 24 hr tablet Take 2 tablets by mouth twice daily before meals. rosuvastatin (CRESTOR) 20 mg tablet Take 1 tablet by mouth daily at bedtime. FLUoxetine (PROZAC) 40 mg capsule Take 2 capsules by mouth once daily. albuterol HFA (VENTOLIN HFA) 90 mcg/actuation inhaler Inhale 2 Puffs as instructed every 4 hours as needed. albuterol (PROVENTIL) 2.5 mg /3 mL (0.083 %) nebulizer solution Use 3 mL via nebulizer every 6 hours as needed. OVER 5-15 MINUTES. FOR WHEEZING AND SHORTNESS OF BREATH. CALCIUM CARBONATE/VITAMIN D3 (CALCIUM + D ORAL) Take 2 tablets by mouth once daily. acetaminophen (TYLENOL EXTRA STRENGTH) 500 mg tablet Take 1 tablet by mouth every 8 hours as needed for Pain. aspirin 81 mg chewable tablet Take 81 mg by mouth once daily. No current facility-administered medications on file prior to visit. Social History Social History Tobacco Use Smoking status: Former Packs/day: 0.75 Years: 1.00 Pack years: 0.75 Types: Cigarettes Quit date: 08/25/1972 Years since quittin.9 Smokeless tobacco: Never Vaping Use Vaping Use: Never used Substance Use Topics Alcohol use: Yes Comment: Rare mixed drink Drug use: No Review of Symptoms REVIEW OF SYSTEMS See HPI EXAM: BP 118/70 Pulse 80 Temp 37.4 C (99.3 F) (Tympanic) Resp 20 Wt 118.8 kg (262 lb) SpO2 95% BMI 47.91 kg/m General Appearance: Ill appearing, non toxic. Able to talk in complete sentences without tachypnea, muscle use, retractions, oxygen. Skin: Skin color, texture, turgor normal, no suspicious rashes or lesions. Head: Normocephalic, no masses, lesions, tenderness or abnormalities. Eyes: Anicteric sclera. Pupils are equally round and reactive to light. Extraocular movements are intact. . Ears: External ears normal, canals clear. Neck: Supple, no adenopathy; thyroid symmetric, normal size, no bruits. Lungs: scattered wheezing throughout right lung with good air entry without rales or rhonchi. Left lung normal. Heart: RRR without murmur, gallop, or rubs. No ectopy. Health Maintenance List BP CONTROLLED (<130/80) Never done COLORECTAL CANCER SCREENING Never done SHINGRIX VACCINE(1 of 2) Never done ADVANCE DIRECTIVE DISCUSSION Never done MAMMOGRAM due on 08/17/2022 DIABETIC FOOT EXAM due on 10/05/2022 HBA1C due on 01/04/2023 DILATED RETINAL EXAM due on 02/10/2023 URINE ALBUMIN:CREATININE RATIO due on 04/02/2023 LDL CHOLESTEROL due on 05/04/2023 ANNUAL PCP TEAM CHRONIC DISEASE VISIT due on 07/06/2023 DTAP,TDAP,TD(2 - Td or Tdap) due on 04/15/2027 BONE DENSITY Completed INFLUENZA Completed HEPATITIS C SCREENING Completed COVID-19 VACCINE Completed PNEUMOCOCCAL: 65+ Completed ASSESSMENT/PLAN: 1. Viral URI with cough - ICD9: 465.9, ICD10: J06.9 (primary diagnosis) - Obtain testing to rule out COVID and flu. - Discussed viral etiology and rationale for treatment. - Symptomatic treatment with prn analgesia - Supportive care with fluids and rest - The patient may also use OTC cough and cold meds as needed and albuterol PRN. - Follow up in one week if symptoms persist or sooner if worsening of symptoms - COVID WITH FLUA+B, ROUTINE - XR CHEST 2V FRONTAL/LAT 2. Bronchitis - ICD9: 490, ICD10: J40 Continue albuterol and oxygen PRN. Check CXR today to rule out PNA. Has prednisone taper at home and has been instructed to use it if symptoms worsen. If she starts steroid, will update our office. Red flags for re-assessment reviewed with patient in detail. 3. Suspected COVID-19 virus infection - ICD9: V01.79, ICD10: Z20.822 - COVID WITH FLUA+B, ROUTINE - XR CHEST 2V FRONTAL/LAT Jon Valenzuela MD documented in this encounter [facility] 07-20-2022 Miscellaneous Notes Phoned patient and updated her of provider's message. She voiced understanding and stated she would call her automotive brake technician as soon as she got off the phone with this nurse. Patient declined coming in for OV at this time. Reviewed. I still have openings this afternoon if she changes her mind. Needs to contact her automotive brake technician as well since they instructed her at her last OV to call with worsening hypoxia. Patient call in for chest congestion and runny nose. Nurse Triage assessment completed with protocol recommending for disposition of See PCP in 4 hours. Care advice reviewed with patient, patient stated understanding. Patient advised to contact office or seek evaluation in urgent care or ER if symptoms persist or gets worse. Patient set up appointment with Dr. Valenzuela for tomorrow morning. Offered patient appointment for today, patient declines. Patient states that she has to go vote. Patient state that if she gets worse then she will go to ER. Patient states that she will also use oxygen that she has prn. Reason for Disposition [1] MILD difficulty breathing (e.g., minimal/no SOB at rest, SOB with walking, pulse <100) AND [2] NEW-onset or WORSE than normal Answer Assessment - Initial Assessment Questions 1. RESPIRATORY STATUS: Shortness of breath with activity; severe coughing 2. ONSET: Tuesday started with symptoms of a stuffy nose 3. PATTERN Comes and goes 4. SEVERITY: Mild feels short of breath with activity. 5. RECURRENT SYMPTOM: Yes, has had covid, was given prednisone 6. CARDIAC HISTORY: bradycardia 7. LUNG HISTORY: Denies; Carcinoid tumor removed 8. CAUSE: Unsure 9. OTHER SYMPTOMS: Runny nose, cough 10. O2 SATURATION MONITOR: Patient's O2 is 89 resting and 85 with activity. Patient has not used oxygen yet. Patient normally runs in 92-98. Protocols used: Breathing [id number] documented in this encounter [facility] 07-19-2022 Miscellaneous Notes Patient phones requesting refills as follows: Requested Prescriptions Pending Prescriptions Disp Refills carvedilol (COREG) 6.25 mg tablet 180 tablet 1 Sig: Take 1 tablet by mouth twice daily with meals. primidone (MYSOLINE) 50 mg tablet 45 tablet 1 Sig: Take 0.5 tablets by mouth daily at bedtime. TREVOR-07/06/22 Labs-07/06/22 NOV-10/06/22 meds filled 01/18/22 Please review and advise. Julianna Vidal LPN documented in this encounter [facility] 07-07-2022 Miscellaneous Notes Pt notified of results via [employer]. Lyndsay Bustos Ma ----- Message from Jon Valenzuela MD sent at 07/07/2022 8:09 AM EDT ----- Diabetes well controlled with A1c of 6.1. no change to regimen. Continue to work on low carb diet and exercise as able. documented in this encounter [facility] 07-06-2022 History of Present illness Narrative Chief Complaint Patient presents with: Follow Up HPI Priyanka Jiménez is a 71 year old female who presents here today for Above Complaints. DIABETES MELLITUS: Ms. Jiménez was last seen 3 months ago. Since our last visit she denies excessive thirst or increased frequency of urination, numbness, tingling or pain in extremities, new or unusual visual symptoms, and low sugar/hypoglycemic reactions. Follows a diabetic diet most of the time. She is compliant with medication(s) and is tolerating med(s) without any side effects. She reports checking her glucose on a once a day schedule with sugars in the fasting 90-140 range. Patient's last HgA1C was Hemoglobin A1C (%) Date Value 04/02/2022 6.5 10/05/2021 6.3 04/06/2021 6.6 ) Last Ophthalmology exam was within the past 12 months Last Podiatry exam was within the past 12 months Notes that she had slow fall yesterday while leaving her daughters house. Was using her cane and walking out the door and felt off balance and sat down hard while holding the railing. [place] stiff and achy over her lower back after the fall, but is not having any pain today. Checked and does not have any bruising. Using walker today without pain. Still has open prescription with PT which she has not pursued. TIA: patient had follow up with neurology on 06/14. Stopped her Plavix since she had been on it more than 21 days. Advised to continue ASA and current regimen. F/u in 6 months. Has not had any recurrent symptoms. Denies slurred speech, facial droop, numbness/tingling/weakness. Depression/anxiety: controlled on Prozac. Has things to look forward to with new great grandchild in February. JAJA: using Bipap on a nightly basis waking up well rested and not snoring. Managed by Dr. Zheng with last OV yesterday. Given A+ . Still on oxygen PRN since she had COVID pneumonia. Due for colon cancer screening and vaccinations today. Past medical history, appointments, medications, allergies reviewed. 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 Melara-hematology/oncology, Dr. Zheng-pulmonology Cataracts, bilateral Depression Diabetes (HCC) Type II Environmental allergies ??? Fibromyalgia Gout History of COVID-19 12/2020 Hypertension Morbid obesity (HCC) 01/06/2017 BMI 50.3 Neuropathy JAJA (obstructive sleep apnea) Bipap Osteopenia Pneumonia due to COVID-19 virus 12/09/2020 Dr. Zheng Thrombocytosis Seeing Dr. Melara; on hydroxyurea and blood thinners TIA (transient ischemic attack) 04/26/2016 TIA Uterine cancer (HCC) 1984 hysterectomy Previous Surgical History PAST SURGICAL HISTORY Procedure Laterality Date CATARACT EXTRACTION W/ INTRAOCULAR LENS IMPLANT HX Left 08/10/2017 CATARACT EXTRACTION W/ INTRAOCULAR LENS IMPLANT HX Right 08/25/2017 INCISE FINGER TENDON SHEATH Left 07/04/2020 Left middle trigger finger release PAST SURGICAL HISTORY OF Tonsillectomy PAST SURGICAL HISTORY OF Left knee surgery PAST SURGICAL HISTORY OF 05/17/1975 PAST SURGICAL HISTORY OF Ganglion cyst removed from left hand PAST SURGICAL HISTORY OF Cyst removed from right wrist PAST SURGICAL HISTORY OF 1983 Hysterectomy PAST SURGICAL HISTORY OF Oily deposits removed from scalp PAST SURGICAL HISTORY OF laser surgery for abnormal cells after hysterectomy THORACOSCOPY W/DX WEDGE RESEXN ANATO LUNG RESEXN Left 01/07/2017 VATS left lower lung wedge resection of carcinoid tumor Family History FAMILY HISTORY Problem Relation Age of Onset Diabetes Mother Cataract Mother other (HTN) Mother Diabetes Sister other (CHF) Sister Cancer Sister d/t brain cancer other (Borderline Diabetes) Sister other (Tuberculosis) Brother d/t TB @ 10 months Patient Allergies ALLERGIES Allergen Reactions Lisinopril Cough Seasonal Allergies Intolerance Current Medications Current Outpatient Medications on File Prior to Visit Medication Sig metFORMIN ER (GLUCOPHAGE XR) 500 mg 24 hr tablet Take 2 tablets by mouth twice daily before meals. rosuvastatin (CRESTOR) 20 mg tablet Take 1 tablet by mouth daily at bedtime. FLUoxetine (PROZAC) 40 mg capsule Take 2 capsules by mouth once daily. carvedilol (COREG) 6.25 mg tablet Take 1 tablet by mouth twice daily with meals. primidone (MYSOLINE) 50 mg tablet Take 0.5 tablets by mouth daily at bedtime. losartan (COZAAR) 100 mg tablet Take 1 tablet by mouth once daily. amLODIPine (NORVASC) 10 mg tablet Take 1 tablet by mouth once daily. albuterol HFA (VENTOLIN HFA) 90 mcg/actuation inhaler Inhale 2 Puffs as instructed every 4 hours as needed. albuterol (PROVENTIL) 2.5 mg /3 mL (0.083 %) nebulizer solution Use 3 mL via nebulizer every 6 hours as needed. OVER 5-15 MINUTES. FOR WHEEZING AND SHORTNESS OF BREATH. CALCIUM CARBONATE/VITAMIN D3 (CALCIUM + D ORAL) Take 2 tablets by mouth once daily. acetaminophen (TYLENOL EXTRA STRENGTH) 500 mg tablet Take 1 tablet by mouth every 8 hours as needed for Pain. aspirin 81 mg chewable tablet Take 81 mg by mouth once daily. No current facility-administered medications on file prior to visit. Social History Social History Tobacco Use Smoking status: Former Packs/day: 0.75 Years: 1.00 Pack years: 0.75 Types: Cigarettes Quit date: 08/25/1972 Years since quittin.8 Smokeless tobacco: Never Vaping Use Vaping Use: Never used Substance Use Topics Alcohol use: Yes Comment: Rare mixed drink Drug use: No Review of Symptoms REVIEW OF SYSTEMS GENERAL: No weight loss, malaise or fevers RESPIRATORY: Negative for cough, hemoptysis, wheezing, COPD, dyspnea or shortness of breath CARDIOVASCULAR: Negative for chest pain, leg swelling, hypertension, CHF or palpitations GI: No nausea, vomiting, or diarrhea SKIN: Negative for lesions, rash, and itching EXAM: BP 130/74 Pulse 63 Resp 16 Wt 121.8 kg (268 lb 9.6 oz) SpO2 96% BMI 49.11 kg/m General Appearance: Well appearing, alert, in no [...] discoloration, clubbing or cyanosis. Good capillary refill. . Musculoskeletal: No joint swelling, deformity, or tenderness. Health Maintenance List BP CONTROLLED (<130/80) Never done COLORECTAL CANCER SCREENING Never done SHINGRIX VACCINE(1 of 2) Never done ADVANCE DIRECTIVE DISCUSSION Never done COVID-19 VACCINE(4 - Booster for Pfizer series) due on 11/30/2021 INFLUENZA(1) due on 05/13/2022 MAMMOGRAM due on 08/17/2022 HBA1C due on 10/03/2022 DIABETIC FOOT EXAM due on 10/05/2022 DILATED RETINAL EXAM due on 02/10/2023 URINE ALBUMIN:CREATININE RATIO due on 04/02/2023 LDL CHOLESTEROL due on 05/04/2023 ANNUAL PCP TEAM CHRONIC DISEASE VISIT due on 05/04/2023 DTAP,TDAP,TD(2 - Td or Tdap) due on 04/15/2027 BONE DENSITY Completed HEPATITIS C SCREENING Completed PNEUMOCOCCAL: 65+ Completed Data reviewed Component Latest Ref Rng & Units 04/02/2022 05/04/2022 Protein, Total 6.3 - 8.0 g/dL 7.6 Albumin 3.9 - 4.9 g/dL 4.4 Calcium 8.5 - 10.2 mg/dL 10.1 Bilirubin, Total 0.2 - 1.3 mg/dL 0.4 Alkaline Phosphatase 34 - 123 U/L 75 AST 13 - 35 U/L 22 ALT 7 - 38 U/L 20 Glucose 74 - 99 mg/dL 105 (H) BUN 7 - 21 mg/dL 17 Creatinine 0.58 - 0.96 mg/dL 0.85 Sodium 136 - 144 mmol/L 137 Potassium 3.7 - 5.1 mmol/L 4.1 Chloride 97 - 105 mmol/L 102 CO2 22 - 30 mmol/L 25 Anion Gap 9 - 18 mmol/L 10 eGFR >=60 mL/min/1.73m 74 Total Cholesterol, Nonfasting <200 mg/dL 165 Triglycerides, Nonfasting <150 mg/dL 131 HDL Cholesterol, Nonfasting >39 mg/dL 65 LDL Cholesterol, Nonfasting <100 mg/dL 74 Non HDL Cholesterol, Nonfasting <130 mg/dL 100 VLDL Cholesterol, Nonfasting <30 mg/dL 26 Total Chol/HDL Ratio, Nonfasting <5.10 mg/dL 2.54 LDL/HDL Ratio, Nonfasting <2.54 mg/dL 1.14 Creatinine, Ur Random (UCRR) 20.0 - 300.0 mg/dL 114.4 Albumin, Urine Random mg/L <12.0 Albumin/Creat Ratio <30 mg/g <10 Hemoglobin A1C 4.3 - 5.6 % 6.5 (H) Estimated Average Glucose mg/dL 140 Uric Acid 2.5 - 6.6 mg/dL 7.0 (H) ASSESSMENT/PLAN: 1. Type 2 diabetes mellitus without complication, without long-term current use of insulin (HCC) - ICD9: 250.00, ICD10: E11.9 (primary diagnosis) Controlled. - Continue current medications - Blood glucose monitoring on a once a day schedule - Encouraged regular aerobic exercise and weight loss - Follow up in 6 months, sooner should any other issues arise. - Discussed diabetic education issues of custodial diabetic complications, hypoglycemic symptoms, hyperglycemic symptoms, diet, medications- side effects and need for compliance, importance of exercise, and importance of annual examinations with Opthalmology with patient. - HGB A1C 2. TIA (transient ischemic attack) - ICD9: 435.9, ICD10: G45.9 No recurrent sympotms. Continue secondary stroke prevention. F/u with neurology in 6 months or PRN. Encouraged her to schedule with PT with recent fall. 3. Essential hypertension - ICD9: 401.9, ICD10: I10 - good control - Continue current medication(s) - Encouraged dietary sodium restriction/DASH diet - Recommended regular aerobic exercise. - Reviewed risks of HTN and principles of treatment - Goal of BP <130/80 - AMLODIPINE 10 MG TABLET 4. Screening mammogram, encounter for - ICD9: V76.12, ICD10: Z12.31 - Set up for mammogram, yearly mammogram recommended - [facility] SCREENING 5. Fall in home, initial encounter - ICD9: E888.9, E849.0, ICD10: W19.XXXA, Y92.009 No apparent injury on exam today. F/u with PT as previously recommended. Red flags for re-assessment reviewed with patient in detail. 6. Need for influenza vaccination - ICD9: V04.81, ICD10: Z23 - INFLUENZA SEASONAL QUADRIVALENT HIGH DOSE AGE 65+ 7. Need for COVID-19 vaccine - ICD9: V04.89, ICD10: Z23 - PFIZER-BIONTECH COVID-19 BIVALENT BOOSTER VACCINE, AGE 12+ YR 8. Screening for colon cancer - ICD9: V76.51, ICD10: Z12.11 Refusing colonoscopy. - COLOGUARD Jon Valenzuela MD documented in this encounter [facility] 06-14-2022 Note HNO ID: [id number] Author: Chris Dunn MD Service: ? Author Type: Physician Type: Progress Notes Filed: 06/14/2022 3:18 PM Note Text: [facility] New Patient Virtual Evaluation Consulting Provider: Jon Valenzuela [address] [facility] [address] I received consent from the patient to perform the visit as a virtual encounter. Individuals who were included in, or assisted with the encounter were: Priyanka Jiménez and Daughter Chris Dunn MD Chief Complaint/Issues: Priyanka Jiménez is a 71 year old R handed female w PMH obesity, HTN, NIDDM, remote RIGHT mariano radiata, ?TIA w left sided numbness, weakness and dizziness 04/26/2016 and then 04/26/2022, essential thrombocytosis , remote history of uterine cancer, and incidental finding of LLL lung nodule biopsy-confirmed low-grade carcinoid tumor cancer free seen in the [facility] for: TIA follow up HPI: H of stroke: Patient was admitted to [facility] from 04/26 to 04/28 for stroke after presenting to the ED with worsening left sided weakness, left side sensory deficit, headache. Her symptoms did not last long and her weakness and headache resolved same day. SBP 216 mmHg in the ER. Head and neck CTA also negative. Brain MRI 04/27/22 12:07 IMPRESSION: 1. Small focal remote lacunar infarct involving the RIGHT mariano radiata. 2. No mass or mass effect noted. 3. No areas of abnormal contrast enhancement. Cervical Spine MRI 04/27/22 19:10 IMPRESSION: 1. Diffusely narrow canal which can be seen in the setting of congenitally short pedicles. 2. No evidence however of acute disc herniations or acutely acquired canal stenosis or cord compression. 3. Multilevel foraminal narrowing contributed by facet and vertebral joint hypertrophic changes as detailed. 4. Normal appearance of the spinal cord, no evidence of intradural or intramedullary signal or contrast abnormality. No evidence of demyelinating processes. EEG normal. Echo obtained which showed EF 65%, otherwise normal. Started on ASA and Plavix and discharged home with recommendation to follow up with neurology. BP is good at home. She walks with a cane. Current medication: DAPT and crestor. Similar presentation on the same day in 2016. Per neurologist Dr. Ford's note on 12/16/2016: April 26, 2016, she was going to her car when she had sudden onset of L sided numbness, weakness, dizziness. 911 called. Improvement of symptoms by arrival to [place] ED, then transferred to [facility]. CT brain 04/26/2016: No acute intracranial process. Old right basal gangli lacunar infarcts. Small right mastoid effusion. MRI brain and MRA neck 04/27/16 - report only: No evidence of acute ischemic injury. Mild diffuse parenchymal volume loss. Right basal ganglia encephalomalacia. Mild nonspecific periventricular and subcortical white matter gliotic foci. No definite cervical MRA abnormalities.(requested images) General Examination: General: Awake, alert, interactive, no acute distress, good nutritional status, normal development, well-kept Neurological Exam Mental Status Alert, fully oriented, attentive, with normal cognition, memory, speech and affect. Cranial Nerves Extraocular movements normal. No nystagmus, no ptosis, and pupils equal. Face symmetrical. Tongue normal. Motor Examination and Coordination Antigravity wo focal weakness in all 4 extremities. No drift. Normal rapid alternating movements and coordination. No adventitious movements or significant tremor. Reflexes Deep tendon reflexes graded by [facility] Gait Casual gait are normal. Assessment AND Plan 06/14/2022 - General Neurology, Chris Dunn MD ASSESSMENT Priyanka Jiménez is a 71 year old R handed female w PMH obesity, HTN, NIDDM, remote RIGHT mariano radiata, ?TIA w left sided numbness, weakness and dizziness 04/26/2016 and then 04/26/2022, essential thrombocytosis , remote history of uterine cancer, and incidental finding of LLL lung nodule biopsy-confirmed low-grade carcinoid tumor cancer free seen in the [facility] for: 1. TIA follow up --?TIA: Two identical episodes w 6 years apart. No acute MRI finding although she does have a remote infarct in R mariano radiata. It could be recrudescence of prior stroke in the setting of uncontrolled HTN: SBP>200mmHg. BP is better controlled now and followed by PCP. --HTN --DMII --H uterine cancer and pulmonary carcinoid nodule in remission --HLP --thrombocytosis PLAN --continue aspirin --continue crestor 20mg daily --Follow up with PCP for BP --follow up with me in 6 months or as needed No diagnosis found. No follow-ups on file. Data Review Objective Current Outpatient Medications Medication Sig - metFORMIN ER (GLUCOPHAGE XR) 500 mg 24 hr tablet Take 2 tab (more content not included)... [facility] 06-14-2022 History of Present illness Narrative Images from the original note were not included. [facility] General Neurology New Patient Virtual Evaluation Consulting Provider: Jon Valenzuela [address] [facility] [address] I received consent from the patient to perform the visit as a virtual encounter. Individuals who were included in, or assisted with the encounter were: Priyanka Jiménez and Daughter Chris Dunn MD Chief Complaint/Issues: Priyanka Jiménez is a 71 year old R handed female w PMH obesity, HTN, NIDDM, remote RIGHT mariano radiata, ?TIA w left sided numbness, weakness and dizziness 04/26/2016 and then 04/26/2022, essential thrombocytosis , remote history of uterine cancer, and incidental finding of LLL lung nodule biopsy-confirmed low-grade carcinoid tumor cancer free seen in the [facility] for: TIA follow up HPI: H of stroke: Patient was admitted to [facility] from 04/26 to 04/28 for stroke after presenting to the ED with worsening left sided weakness, left side sensory deficit, headache. Her symptoms did not last long and her weakness and headache resolved same day. SBP 216 mmHg in the ER. Head and neck CTA also negative. Brain MRI 04/27/22 12:07 IMPRESSION: 1. Small focal remote lacunar infarct involving the RIGHT mariano radiata. 2. No mass or mass effect noted. 3. No areas of abnormal contrast enhancement. Cervical Spine MRI 04/27/22 19:10 IMPRESSION: 1. Diffusely narrow canal which can be seen in the setting of congenitally short pedicles. 2. No evidence however of acute disc herniations or acutely acquired canal stenosis or cord compression. 3. Multilevel foraminal narrowing contributed by facet and vertebral joint hypertrophic changes as detailed. 4. Normal appearance of the spinal cord, no evidence of intradural or intramedullary signal or contrast abnormality. No evidence of demyelinating processes. EEG normal. Echo obtained which showed EF 65%, otherwise normal. Started on ASA and Plavix and discharged home with recommendation to follow up with neurology. BP is good at home. She walks with a cane. Current medication: DAPT and crestor. Similar presentation on the same day in 2016. Per neurologist Dr. Ford's note on 12/16/2016: April 26, 2016, she was going to her car when she had sudden onset of L sided numbness, weakness, dizziness. 911 called. Improvement of symptoms by arrival to [place] ED, then transferred to [facility]. CT brain 04/26/2016: No acute intracranial process. Old right basal gangli lacunar infarcts. Small right mastoid effusion. MRI brain and MRA neck 04/27/16 - report only: No evidence of acute ischemic injury. Mild diffuse parenchymal volume loss. Right basal ganglia encephalomalacia. Mild nonspecific periventricular and subcortical white matter gliotic foci. No definite cervical MRA abnormalities.(requested images) General Examination: General: Awake, alert, interactive, no acute distress, good nutritional status, normal development, well-kept Neurological Exam Mental Status Alert, fully oriented, attentive, with normal cognition, memory, speech and affect. Cranial Nerves Extraocular movements normal. No nystagmus, no ptosis, and pupils equal. Face symmetrical. Tongue normal. Motor Examination and Coordination Antigravity wo focal weakness in all 4 extremities. No drift. Normal rapid alternating movements and coordination. No adventitious movements or significant tremor. Reflexes Deep tendon reflexes graded by MRC Gait Casual gait are normal. Assessment & Plan 06/14/2022 - General Neurology, Chris Dunn MD ASSESSMENT Priyanka Jiménez is a 71 year old R handed female w PMH obesity, HTN, NIDDM, remote RIGHT mariano radiata, ?TIA w left sided numbness, weakness and dizziness 04/26/2016 and then 04/26/2022, essential thrombocytosis , remote history of uterine cancer, and incidental finding of LLL lung nodule biopsy-confirmed low-grade carcinoid tumor cancer free seen in the [facility] for: 1. TIA follow up --?TIA: Two identical episodes w 6 years apart. No acute MRI finding although she does have a remote infarct in R mariano radiata. It could be recrudescence of prior stroke in the setting of uncontrolled HTN: SBP>200mmHg. BP is better controlled now and followed by PCP. --HTN --DMII --H uterine cancer and pulmonary carcinoid nodule in remission --HLP --thrombocytosis PLAN --continue aspirin --continue crestor 20mg daily --Follow up with PCP for BP --follow up with me in 6 months or as needed No diagnosis found. No follow-ups on file. Data Review Objective Current Outpatient Medications Medication Sig metFORMIN ER (GLUCOPHAGE XR) 500 mg 24 hr tablet Take 2 tablets by mouth twice daily before meals. clopidogrel (PLAVIX) 75 mg tablet Take 1 tablet by mouth once daily. rosuvastatin (CRESTOR) 20 mg tablet Take 1 tablet by mouth daily at bedtime. FLUoxetine (PROZAC) 40 mg capsule Take 2 capsules by mouth once daily. carvedilol (COREG) 6.25 mg tablet Take 1 tablet by mouth twice daily with meals. primidone (MYSOLINE) 50 mg tablet Take 0.5 tablets by mouth daily at bedtime. losartan (COZAAR) 100 mg tablet Take 1 tablet by mouth once daily. amLODIPine (NORVASC) 10 mg tablet Take 1 tablet by mouth once daily. albuterol HFA (VENTOLIN HFA) 90 mcg/actuation inhaler Inhale 2 Puffs as instructed every 4 hours as needed. albuterol (PROVENTIL) 2.5 mg /3 mL (0.083 %) nebulizer solution Use 3 mL via nebulizer every 6 hours as needed. OVER 5-15 MINUTES. FOR WHEEZING AND SHORTNESS OF BREATH. CALCIUM CARBONATE/VITAMIN D3 (CALCIUM + D ORAL) Take 2 tablets by mouth once daily. acetaminophen (TYLENOL EXTRA STRENGTH) 500 mg tablet Take 1 tablet by mouth every 8 hours as needed for Pain. aspirin 81 mg chewable tablet Take 81 mg by mouth once daily. No current facility-administered medications for this visit. 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 Melara-hematology/oncology, Dr. Zheng-pulmonology Cataracts, bilateral Depression Diabetes (HCC) Type II Environmental allergies ??? Fibromyalgia Gout History of COVID-19 12/2020 Hypertension Morbid obesity (HCC) 01/06/2017 BMI 50.3 Neuropathy JAJA (obstructive sleep apnea) Bipap Osteopenia Pneumonia due to COVID-19 virus 12/09/2020 Dr. Zheng Thrombocytosis Seeing Dr. Melara; on hydroxyurea and blood thinners TIA (transient ischemic attack) 04/26/2016 TIA Uterine cancer (HCC) 1985 hysterectomy PAST SURGICAL HISTORY Procedure Laterality Date CATARACT EXTRACTION W/ INTRAOCULAR LENS IMPLANT HX Left 08/10/2017 CATARACT EXTRACTION W/ INTRAOCULAR LENS IMPLANT HX Right 08/25/2017 INCISE FINGER TENDON SHEATH Left 07/04/2020 Left middle trigger finger release PAST SURGICAL HISTORY OF Tonsillectomy PAST SURGICAL HISTORY OF Left knee surgery PAST SURGICAL HISTORY OF 05/17/1975 PAST SURGICAL HISTORY OF Ganglion cyst removed from left hand PAST SURGICAL HISTORY OF Cyst removed from right wrist PAST SURGICAL HISTORY OF 1983 Hysterectomy PAST SURGICAL HISTORY OF Oily deposits removed from scalp PAST SURGICAL HISTORY OF laser surgery for abnormal cells after hysterectomy THORACOSCOPY W/DX WEDGE RESEXN ANATO LUNG RESEXN Left 01/07/2017 VATS left lower lung wedge resection of carcinoid tumor Social History Tobacco Use Smoking status: Former Packs/day: 0.75 Years: 1.00 Pack years: 0.75 Types: Cigarettes Quit date: 08/25/1972 Years since quittin.8 Smokeless tobacco: Never Vaping Use Vaping Use: Never used Substance Use Topics Alcohol use: Yes Comment: Rare mixed drink Drug use: No FAMILY HISTORY Problem Relation Age of Onset Diabetes Mother Cataract Mother other (HTN) Mother Diabetes Sister other (CHF) Sister Cancer Sister d/t brain cancer other (Borderline Diabetes) Sister other (Tuberculosis) Brother d/t TB @ 10 months Review of Systems Lab and Test Review: Results for orders placed or performed in visit on 05/04/22 LIPID PANEL, NONFASTING Result Value Ref Range Total Cholesterol, Nonfasting 165 <200 mg/dL Triglycerides, Nonfasting 131 <150 mg/dL HDL Cholesterol, Nonfasting 65 >39 mg/dL LDL Cholesterol, Nonfasting 74 <100 mg/dL Non HDL Cholesterol, Nonfasting 100 <130 mg/dL VLDL Cholesterol, Nonfasting 26 <30 mg/dL Total Chol/HDL Ratio, Nonfasting 2.54 <5.10 mg/dL LDL/HDL Ratio, Nonfasting 1.14 <2.54 mg/dL COMP METABOLIC PANEL Result Value Ref Range Protein, Total 7.6 6.3 - 8.0 g/dL Albumin 4.4 3.9 - 4.9 g/dL Calcium, Total 10.1 8.5 - 10.2 mg/dL Bilirubin, Total 0.4 0.2 - 1.3 mg/dL Alkaline Phosphatase 75 34 - 123 U/L AST 22 13 - 35 U/L ALT 20 7 - 38 U/L Glucose 105 (H) 74 - 99 mg/dL BUN 17 7 - 21 mg/dL Creatinine 0.85 0.58 - 0.96 mg/dL Sodium 137 136 - 144 mmol/L Potassium 4.1 3.7 - 5.1 mmol/L Chloride 102 97 - 105 mmol/L CO2 25 22 - 30 mmol/L Anion Gap 10 9 - 18 mmol/L Estimated Glomerular Filtration Rate 74 >=60 mL/min/1.73m Outside Data/Labs: Subjective Patient-Entered Data: 06/14/22 - PHQ-2 Score: 1 PHQ-9 Score: 5 GENERAL NEUROLOGY SCORES PROMIS 10 12/07/2020 08/20/2021 06/14/2022 In general, would you say your health is: Good Fair Good In general, would you say your quality of life is: Fair Good Good In general, how would you rate your physical health? Fair Fair Fair In general, how would you rate your mental health, including your mood and your ability to think? Fair Fair Fair In general, how would you rate your satisfaction with your social activities and relationships? Fair Good Good To what extent are you able to carry out your everyday physical activities such as walking, climbing stairs, carrying groceries, or moving a chair? Moderately A little Moderately In general, please rate how well you carry out your usual social activities and roles. (This includes activities at home, at work and in your community, and responsibilities as a parent, child, spouse, employee, friend, etc.) Fair Good Good How would you rate your pain on average? 6 7 5 How would you rate your fatigue on average? Moderate Severe Moderate How often have you been bothered by emotional problems such as feeling anxious, depressed or irritable? Sometimes Often Often PROMIS Adult Short Form-Global Health Score (Physical) 37.4 29.6 (Poor) 37.4 (Fair) PROMIS Adult Short Form-Global Health Score (Mental) 36.3 38.8 (Fair) 38.8 (Fair) Depression Screening 08/20/2021 04/05/2022 06/14/2022 PHQ-2 Score 2 - 1 PHQ-9 Score - - 5 ALANA-2 Total Score - 1 - ALANA-7 Total Score - 6 - No flowsheet data found. AVERAGE SLEEP 24 HOURS 06/14/2022 Average sleep last 24 hrs 7 PROMIS CAT Sleep Disturbance 06/14/2022 PROMIS Sleep Disturbance T-Score 52 (within normal limits) I spent a total of 45 minutes on the date of the service which included preparing to see the patient, [id number] patient care, completing clinical documentation, obtaining and/or reviewing separately obtained history, performing a medically appropriate examination, counseling and educating the patient/family/caregiver, ordering medications, tests, or procedures, independently interpreting results (not separately reported), communicating results to the patient/family/caregiver, and care coordination (not separately reported). Chris Dunn MD documented in this encounter [facility] 06-14-2022 Miscellaneous Notes Patient phones requesting refills as follows: Requested Prescriptions Pending Prescriptions Disp Refills metFORMIN ER (GLUCOPHAGE XR) 500 mg 24 hr tablet 360 tablet 1 Sig: Take 2 tablets by mouth twice daily before meals. TREVOR 05/04/22 NOV 07/06/22 Please review and advise. Lucy Foster LPN documented in this encounter [facility] 05-18-2022 Miscellaneous Notes Patient has been identified by name and date of : Yes Patient phones for refill(s): Requested Prescriptions Pending Prescriptions Disp Refills clopidogrel (PLAVIX) 75 mg tablet 30 tablet 1 Sig: Take 1 tablet by mouth once daily. A 21 day of Plavix was ordered from hospital stay. Follow up with neurology is June 14, 2022. Date of last office visit with pcp: 05/04/2022 Future appt: Last 2 Encounter Wt Readings: Date: Wt: 05/04/2022 122.3 kg (269 lb 9.6 oz) 04/05/2022 122 kg (269 lb) Previous labs/tests for medication: Blood Pressure: BUN (mg/dL) Date Value 05/04/2022 17 08/17/2021 11 Sodium (mmol/L) Date Value 05/04/2022 137 08/17/2021 137 Last 1 Encounter BP Readings: Date: BP: 05/04/2022 134/70[recheck[ Liver Function: ALT (U/L) Date Value 05/04/2022 20 08/17/2021 19 AST (U/L) Date Value 05/04/2022 22 08/17/2021 23 Please advise. Thank you. Fozia Fernando, RN documented in this encounter [facility] 05-05-2022 Miscellaneous Notes Pt notified of results via [employer]. Lyndsay Bustos Ma ----- Message from Jon Valenzuela MD sent at 05/05/2022 2:44 PM EDT ----- Cholesterol looks to be in good range, but would still have her take higher intensity statin as discussed in office. Potassium level normal. Kidney function looks good. Glucose 105. documented in this encounter [facility] 05-04-2022 History of Present illness Narrative Chief Complaint Patient presents with: Transition Of Care: To ER on 04/26/22 and admitted for stroke. Discharged 04/28/22 HPI Priyanka Jiménez is a 71 year old female who presents here today for Hospital Discharge Follow up.. Patient admitted to [facility] from 04/26 to 04/28 for stroke after presenting to the ED with worsening left sided weakness, left side sensory deficit, headache. CT brain x2 negative for stroke. Head and neck CTA also negative. MRI brain with contrast demonstrated mulitfocal remote lacunar infarcts in irght mariano radiata. Cervical spine MRI normal. EEG normal. Echo obtained which showed EF 65%, otherwise normal. Started on ASA and Plavix and discharged home with recommendation to follow up with neurology. Today, patient states that her symptoms did not last long and her weakness and headache resolved same day. Took several days for her sensory deficit to resolve. Did have headache yesterday without other neuro symptoms. Lasted most of the day. Patient has not scheduled appointment with neurology yet. BP at home running 130's/70's on current regimen. Evaluated by PT/OT while inpatient was given open prescription in case she wanted to follow up with them. Ambulating with use of her walker without falls since discharge. Past medical history, appointments, medications, allergies reviewed. 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 Melara-hematology/oncology, Dr. Zheng-pulmonology Cataracts, bilateral Depression Diabetes (HCC) Type II Environmental allergies ??? Fibromyalgia Gout History of COVID-19 12/2020 Hypertension Morbid obesity (HCC) 01/06/2017 BMI 50.3 Neuropathy JAJA (obstructive sleep apnea) Bipap Osteopenia Pneumonia due to COVID-19 virus 12/09/2020 Dr. Zheng Thrombocytosis Seeing Dr. Melara; on hydroxyurea and blood thinners TIA (transient ischemic attack) 04/26/2016 TIA Uterine cancer (HCC) 1985 hysterectomy Previous Surgical History PAST SURGICAL HISTORY Procedure Laterality Date CATARACT EXTRACTION W/ INTRAOCULAR LENS IMPLANT HX Left 08/10/2017 CATARACT EXTRACTION W/ INTRAOCULAR LENS IMPLANT HX Right 08/25/2017 INCISE FINGER TENDON SHEATH Left 07/04/2020 Left middle trigger finger release PAST SURGICAL HISTORY OF Tonsillectomy PAST SURGICAL HISTORY OF Left knee surgery PAST SURGICAL HISTORY OF 05/17/1975 PAST SURGICAL HISTORY OF Ganglion cyst removed from left hand PAST SURGICAL HISTORY OF Cyst removed from right wrist PAST SURGICAL HISTORY OF 1983 Hysterectomy PAST SURGICAL HISTORY OF Oily deposits removed from scalp PAST SURGICAL HISTORY OF laser surgery for abnormal cells after hysterectomy THORACOSCOPY W/DX WEDGE RESEXN ANATO LUNG RESEXN Left 01/07/2017 VATS left lower lung wedge resection of carcinoid tumor Family History FAMILY HISTORY Problem Relation Age of Onset Diabetes Mother Cataract Mother other (HTN) Mother Diabetes Sister other (CHF) Sister Cancer Sister d/t brain cancer other (Borderline Diabetes) Sister other (Tuberculosis) Brother d/t TB @ 10 months Patient Allergies ALLERGIES Allergen Reactions Lisinopril Cough Seasonal Allergies Intolerance Current Medications Current Outpatient Medications on File Prior to Visit Medication Sig clopidogrel (PLAVIX) 75 mg tablet Take 75 mg by mouth once daily. FLUoxetine (PROZAC) 40 mg capsule Take 2 capsules by mouth once daily. carvedilol (COREG) 6.25 mg tablet Take 1 tablet by mouth twice daily with meals. primidone (MYSOLINE) 50 mg tablet Take 0.5 tablets by mouth daily at bedtime. losartan (COZAAR) 100 mg tablet Take 1 tablet by mouth once daily. amLODIPine (NORVASC) 10 mg tablet Take 1 tablet by mouth once daily. metFORMIN ER (GLUCOPHAGE XR) 500 mg 24 hr tablet Take 2 tablets by mouth twice daily before meals. simvastatin (ZOCOR) 20 mg tablet Take 1 tablet by mouth daily at bedtime. albuterol HFA (VENTOLIN HFA) 90 mcg/actuation inhaler Inhale 2 Puffs as instructed every 4 hours as needed. albuterol (PROVENTIL) 2.5 mg /3 mL (0.083 %) nebulizer solution Use 3 mL via nebulizer every 6 hours as needed. OVER 5-15 MINUTES. FOR WHEEZING AND SHORTNESS OF BREATH. CALCIUM CARBONATE/VITAMIN D3 (CALCIUM + D ORAL) Take 2 tablets by mouth once daily. acetaminophen (TYLENOL EXTRA STRENGTH) 500 mg tablet Take 1 tablet by mouth every 8 hours as needed for Pain. aspirin 81 mg chewable tablet Take 81 mg by mouth once daily. alendronate (FOSAMAX) 70 mg tablet Take 1 tablet by mouth one time a week. (Patient not taking: No sig reported) No current facility-administered medications on file prior to visit. Social History Social History Tobacco Use Smoking status: Former Packs/day: 0.75 Years: 1.00 Pack years: 0.75 Types: Cigarettes Quit date: 08/25/1972 Years since quittin.7 Smokeless tobacco: Never Vaping Use Vaping Use: Never used Substance Use Topics Alcohol use: Yes Comment: Rare mixed drink Drug use: No Review of Symptoms REVIEW OF SYSTEMS GENERAL: No weight loss, malaise or fevers RESPIRATORY: Negative for cough, hemoptysis, wheezing, COPD, dyspnea or shortness of breath CARDIOVASCULAR: Negative for chest pain, leg swelling, hypertension, CHF or palpitations GI: No nausea, vomiting, or diarrhea NEURO: SEE HPI EXAM: BP 134/70 Pulse 65 Resp 16 Wt 122.3 kg (269 lb 9.6 oz) SpO2 94% BMI 49.30 kg/m General Appearance:Well appearing, alert, in no acute distress, well-hydrated, well nourished. . Skin: Skin color, texture, turgor normal, no suspicious rashes or lesions. Lungs: Lungs clear to auscultation. No wheezing, rhonchi, rales.. Heart: RRR without murmur, gallop, or rubs. No ectopy. Abdomen: Normal abdominal exam, Abdomen soft, non-tender. Bowel sounds normal. No masses, organomegaly. Neurologic: Negative findings: speech normal, mental status intact, cranial nerves 2-12 intact, sensation to light touch and pinprick normal, reflexes normal and symmetric. Positive for 4/5 strength on left UE and LE compared to right. Health Maintenance List BP CONTROLLED (<130/80) Never done COLORECTAL CANCER SCREENING Never done SHINGRIX VACCINE(1 of 2) Never done ADVANCE DIRECTIVE DISCUSSION Never done COVID-19 VACCINE(4 - Booster for Pfizer series) due on 02/02/2022 LDL CHOLESTEROL due on 04/06/2022 INFLUENZA(1) due on 05/13/2022 MAMMOGRAM due on 08/17/2022 HBA1C due on 10/03/2022 DIABETIC FOOT EXAM due on 10/05/2022 DILATED RETINAL EXAM due on 02/10/2023 URINE ALBUMIN:CREATININE RATIO due on 04/02/2023 ANNUAL PCP TEAM CHRONIC DISEASE VISIT due on 05/04/2023 DTAP,TDAP,TD(2 - Td or Tdap) due on 04/15/2027 BONE DENSITY Completed HEPATITIS C SCREENING Completed PNEUMOCOCCAL: 65+ Completed Data reviewed Component Latest Ref Rng & Units 04/06/2021 04/02/2022 Total Cholesterol, Nonfasting <200 mg/dL 158 Triglycerides, Nonfasting <150 mg/dL 152 (H) HDL Cholesterol, Nonfasting >39 mg/dL 62 LDL Cholesterol, Nonfasting <100 mg/dL 66 Non HDL Cholesterol, Nonfasting <130 mg/dL 96 VLDL Cholesterol, Nonfasting <30 mg/dL 30 (H) Total Chol/HDL Ratio, Nonfasting <5.10 mg/dL 2.55 LDL/HDL Ratio, Nonfasting <2.54 mg/dL 1.06 Creatinine, Ur Random (UCRR) 20.0 - 300.0 mg/dL 114.4 Albumin, Urine Random mg/L <12.0 Albumin/Creat Ratio <30 mg/g <10 Hemoglobin A1C 4.3 - 5.6 % 6.5 (H) Estimated Average Glucose mg/dL 140 Uric Acid 2.5 - 6.6 mg/dL 7.0 (H) ASSESSMENT/PLAN: 1. TIA (transient ischemic attack) - ICD9: 435.9, ICD10: G45.9 (primary diagnosis) Symptoms gradually improving. Will switch to high intensity statin and have patient follow up with neurology. Continue ASA and Plavix. BP well controlled. Using Bipap nightly. F/u with PT/OT if strength is not continuing to improve. - CONSULT TO NEUROLOGY - ROSUVASTATIN 20 MG TABLET - LIPID PANEL, NONFASTING 2. Weakness of left side of body - ICD9: 728.87, ICD10: R53.1 Improving. See above. - CONSULT TO NEUROLOGY - ROSUVASTATIN 20 MG TABLET 3. Sensory deficit, left - ICD9: 781.99, ICD10: R44.9 Resolved. See above. - CONSULT TO NEUROLOGY - ROSUVASTATIN 20 MG TABLET 4. Headache, unspecified headache type - ICD9: 784.0, ICD10: R51.9 Resolved. - CONSULT TO NEUROLOGY - ROSUVASTATIN 20 MG TABLET 5. Hypokalemia - ICD9: 276.8, ICD10: E87.6 Given potassium while inpatient. Will recheck CMP today. - COMP METABOLIC PANEL Jon Valenzuela MD documented in this encounter [facility] 04-30-2022 Miscellaneous Notes Patient was admitted and released. Dx: Stroke. Follow up with Dr. Valenzuela on 05/04/22. Lucy Foster LPN Patient calling she had fall in her home this afternoon about 230 pm, she said her left side of her body went numb. She was alone she did not think she hit anything on the way down. She did not loose consciousness, she laid on the floor for almost an hour until her daughter could get in. She had not given her daughter new mancia to locks. She still feels like left side of body is numb feeling. Advised to have someone take her to ER for evaluation, not to drive herself. She said her would take her to ER. documented in this encounter [facility] 04-29-2022 Miscellaneous Notes Patient notified of results, verbalizes understanding of instructions. Julianna Vidal LPN I would not recommend she drive until we can further assess her in office. Patient stated she was given no restrictions upon 04/28/22 discharge from [facility] after 04/26/22 stroke other that to stop using a cane and use her walker with ambulation. Patient was inquiring if it's ok for her to drive? documented in this encounter [facility] 04-29-2022 History of Present illness Narrative Reviewed. TRANSITION CARE MANAGEMENT (TCM) INITIAL CONTACT [facility] Outreach Provider Action/FYI: Patient had fallen at home on 04/26/22 and was advised to go to the ER Due to patient reported numbness/weakness to her left side. Patient reported to [facility] ER and was admitted for stroke. Initial contact with patient post discharge, spoke to patient. Patient identified by name and . TRANSITION CARE MANAGEMENT INITIAL OUTREACH DOCUMENTATION: Date of Outreach: 04/29/2022 Outreach Attempt 1: Contact Not Made Date of Discharge 04/28/2022 Some recent data might be hidden SUMMARY: -Pt discharged from [facility] on 04/28/22. -Admitted for: Stroke Do you have a hospital follow up appointment with your PCP? Appointment on 05/04/[address] Valenzuela. Yes. Remind patient of appointment date, time, and location. If not within 14 calendar days of discharge - please reschedule accordingly. MEDICATIONS: Many patients have questions or concerns about their medications once they are home. Were you prescribed any new medications? If yes, what are those medications? Plavix 75mg po daily Were you told to hold any medications? No Were any of your medications discontinued? No Do you have any questions about getting or taking your medications? No Your discharge instructions/After visit Summary (AVS) are important in guiding you through the recovery process. Is there anything I might help you understand? No Do you have all the necessary equipment and supplies at home? Yes Medical records from recent hospitalization: Records from [facility] received. documented in this encounter [facility] 04-05-2022 History of Present illness Narrative Chief Complaint Patient presents with: Follow Up: 6 month HPI Priyanka Jiménez is a 71 year old female who presents here today for 6 month follow up. Patient states that she had a fall about 5 days ago when using her cane. Was walking upstairs outside and cane slipped on bottom stair. Hit the stopped on her right knee, right lateral calf, and right forearm. Did not hit her head or blackout. Needed help getting up. Does not have any bruising today, but is still sore over knee, calf, and forearm. DIABETES MELLITUS: Ms. Jiménez was last seen 6 months ago. Since our last visit she denies excessive thirst or increased frequency of urination, numbness, tingling or pain in extremities, new or unusual visual symptoms, low sugar/hypoglycemic reactions and weight loss/gain. Follows a diabetic diet most of the time. She is compliant with medication(s) and is tolerating med(s) without any side effects. She reports checking her glucose on a once a day schedule with sugars in the fasting <120 range. Patient's last HgA1C was Hemoglobin A1C (%) Date Value 04/02/2022 6.5 10/05/2021 6.3 04/06/2021 6.6 ) Last Ophthalmology exam was within the past [address] Billingsley in [place]. Reportedly normal. Last Podiatry exam was within the past 12 months Depression: somewhat controlled on Prozac. States that she has occasional days where she feels down or worries about /family. Denies SI/HI, but admits to occasional panic attacks. Symptoms have been present for years. Office Visit from 04/05/2022 in [facility] [place] 04/05/22 1115 Last Filed Value ALANA-7 - over the last 2 weeks... Feeling nervous, anxious, or on edge Not at all Not at all Not being able to stop or control worrying Several days Several days Worrying too much about different things Not at all Not at all Trouble relaxing Nearly Everyday Nearly Everyday Being so restless that it is hard to sit still Several days Several days Becoming easily annoyed or irritable Not at all Not at all Feeling afraid, as if something awful might happen Several days Several days How difficult to do work, care for home, get along with people Not difficult at all Not difficult at all ALANA-2 Total Score 1 1 ALANA-7 Total Score 6 6 ALANA-7 Score 6 6 Has follow up appointment with pulmonology in the next month or so. Still using oxygen PRN. Usually becomes hypoxic when it is humid out. History of gout without recent flares. Uric acid level elevated at 7 on recent labs. Denies joint pain, swelling, or erythema. Not eating specific triggers for gout and has cut back on sugary drinks. Refusing medication. Due for colon cancer screening. Ordered FOBT at last OV, but was not completed. Has it and will bring in a sample. Past medical history, appointments, medications, allergies reviewed. 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 Melara-hematology/oncology, Dr. Zheng-pulmonology Cataracts, bilateral Depression Diabetes (HCC) Type II Environmental allergies ??? Fibromyalgia Gout History of COVID-19 12/2020 Hypertension Morbid obesity (HCC) 01/06/2017 BMI 50.3 Neuropathy JAJA (obstructive sleep apnea) Bipap Osteopenia Pneumonia due to COVID-19 virus 12/09/2020 Dr. Zheng Thrombocytosis Seeing Dr. Melara; on hydroxyurea and blood thinners TIA (transient ischemic attack) 04/26/2016 TIA Uterine cancer (HCC) 1985 hysterectomy Previous Surgical History PAST SURGICAL HISTORY Procedure Laterality Date CATARACT EXTRACTION W/ INTRAOCULAR LENS IMPLANT HX Left 08/10/2017 CATARACT EXTRACTION W/ INTRAOCULAR LENS IMPLANT HX Right 08/25/2017 INCISE FINGER TENDON SHEATH Left 07/04/2020 Left middle trigger finger release PAST SURGICAL HISTORY OF Tonsillectomy PAST SURGICAL HISTORY OF Left knee surgery PAST SURGICAL HISTORY OF 05/17/1975 PAST SURGICAL HISTORY OF Ganglion cyst removed from left hand PAST SURGICAL HISTORY OF Cyst removed from right wrist PAST SURGICAL HISTORY OF 1983 Hysterectomy PAST SURGICAL HISTORY OF Oily deposits removed from scalp PAST SURGICAL HISTORY OF laser surgery for abnormal cells after hysterectomy THORACOSCOPY W/DX WEDGE RESEXN ANATO LUNG RESEXN Left 01/07/2017 VATS left lower lung wedge resection of carcinoid tumor Family History FAMILY HISTORY Problem Relation Age of Onset Diabetes Mother Cataract Mother other (HTN) Mother Diabetes Sister other (CHF) Sister Cancer Sister d/t brain cancer other (Borderline Diabetes) Sister other (Tuberculosis) Brother d/t TB @ 10 months Patient Allergies ALLERGIES Allergen Reactions Lisinopril Cough Seasonal Allergies Intolerance Current Medications Current Outpatient Medications on File Prior to Visit Medication Sig FLUoxetine (PROZAC) 40 mg capsule Take 1 capsule by mouth once daily. carvedilol (COREG) 6.25 mg tablet Take 1 tablet by mouth twice daily with meals. primidone (MYSOLINE) 50 mg tablet Take 0.5 tablets by mouth daily at bedtime. losartan (COZAAR) 100 mg tablet Take 1 tablet by mouth once daily. amLODIPine (NORVASC) 10 mg tablet Take 1 tablet by mouth once daily. metFORMIN ER (GLUCOPHAGE XR) 500 mg 24 hr tablet Take 2 tablets by mouth twice daily before meals. simvastatin (ZOCOR) 20 mg tablet Take 1 tablet by mouth daily at bedtime. albuterol HFA (VENTOLIN HFA) 90 mcg/actuation inhaler Inhale 2 Puffs as instructed every 4 hours as needed. albuterol (PROVENTIL) 2.5 mg /3 mL (0.083 %) nebulizer solution Use 3 mL via nebulizer every 6 hours as needed. OVER 5-15 MINUTES. FOR WHEEZING AND SHORTNESS OF BREATH. CALCIUM CARBONATE/VITAMIN D3 (CALCIUM + D ORAL) Take 2 tablets by mouth once daily. acetaminophen (TYLENOL EXTRA STRENGTH) 500 mg tablet Take 1 tablet by mouth every 8 hours as needed for Pain. aspirin 81 mg chewable tablet Take 81 mg by mouth once daily. hydrOXYzine HCl (ATARAX) 25 mg tablet Take 1 tablet by mouth every 8 hours as needed. (Patient not taking: Reported on 04/05/2022 ) alendronate (FOSAMAX) 70 mg tablet Take 1 tablet by mouth one time a week. (Patient not taking: Reported on 04/05/2022 ) No current facility-administered medications on file prior to visit. Social History Social History Tobacco Use Smoking status: Former Smoker Packs/day: 0.75 Years: 1.00 Pack years: 0.75 Types: Cigarettes Quit date: 08/25/1972 Years since quittin.6 Smokeless tobacco: Never Used Vaping Use Vaping Use: Never used Substance Use Topics Alcohol use: Yes Comment: Rare mixed drink Drug use: No Review of Symptoms REVIEW OF SYSTEMS GENERAL: No weight loss, malaise or fevers RESPIRATORY: Negative for cough, hemoptysis, wheezing, COPD, dyspnea or shortness of breath CARDIOVASCULAR: Negative for chest pain, leg swelling, hypertension, CHF or palpitations GI: No nausea, vomiting, or diarrhea SKIN: Negative for lesions, rash, and itching EXAM: BP 136/78 Pulse 66 Resp 16 Wt 122 kg (269 lb) SpO2 95% BMI 49.19 kg/m General Appearance: Well appearing, alert, in no [...] discoloration, clubbing or cyanosis. Good capillary refill. . Musculoskeletal: TTP over right lateral proximal forearm without swelling, bruising, or crepitus. Normal ROM at shoulder, elbow, and wrist without pain. KNEE:Location: Right Redness: No. Warmth: No. Crepitus: Yes. Effusion: No. Joint line tenderness: Yes. Lateral tenderness: Yes. Medial tenderness: No. Drawer sign negative: Yes. Medial or lateral laxity: No. Urban's sign: No. Health Maintenance List BP CONTROLLED (<130/80) Never done COLORECTAL CANCER SCREENING Never done SHINGRIX VACCINE(1 of 2) Never done ADVANCE DIRECTIVE DISCUSSION Never done COVID-19 VACCINE(4 - Booster for Pfizer series) due on 02/02/2022 LDL CHOLESTEROL due on 04/06/2022 INFLUENZA(1) due on 05/13/2022 MAMMOGRAM due on 08/17/2022 HBA1C due on 10/03/2022 DIABETIC FOOT EXAM due on 10/05/2022 ANNUAL PCP TEAM CHRONIC DISEASE VISIT due on 10/26/2022 DILATED RETINAL EXAM due on 02/10/2023 URINE ALBUMIN:CREATININE RATIO due on 04/02/2023 DTAP,TDAP,TD(2 - Td or Tdap) due on 04/15/2027 BONE DENSITY Completed HEPATITIS C SCREENING Completed PNEUMOCOCCAL: 65+ Completed Data reviewed Component Latest Ref Rng & Units 09/30/2021 10/05/2021 04/02/2022 Creatinine, Ur Random (UCRR) 20.0 - 300.0 mg/dL 114.4 Albumin, Urine Random mg/L <12.0 Albumin/Creat Ratio <30 mg/g <10 Hemoglobin A1C 4.3 - 5.6 % 6.3 (H) 6.5 (H) Estimated Average Glucose mg/dL 134 140 Uric Acid 2.5 - 6.6 mg/dL 7.0 (H) 7.0 (H) TSH 0.270 - 4.200 uU/mL 3.210 ASSESSMENT/PLAN: 1. Fall in home, initial encounter - ICD9: E888.9, E849.0, ICD10: W19.XXXA, Y92.009 (primary diagnosis) Slip and fall going upstairs. Obtain imaging as ordered to rule out fractures and encouraged her to continue using cane/walker. Exercise extra caution in wet or slippery conditions. OTC analgesics, ice, and rest for pain. 2. Acute pain of right knee - ICD9: 719.46, ICD10: M25.561 - XR KNEE GENERAL 4V AP BOTH/PA BOTH/LAT/MERC RIGHT 3. Right forearm pain - ICD9: 729.5, ICD10: M79.631 - XR FOREARM GENERAL 2V AP/LAT RIGHT 4. Moderate episode of recurrent major depressive disorder (HCC) - ICD9: 296.32, ICD10: F33.1 Uncontrolled. Increase Prozac to 80 mg daily and call If not improve in the next 4-6 weeks. - FLUOXETINE 40 MG CAPSULE 5. Anxiety - ICD9: 300.00, ICD10: F41.9 Uncontrolled. Increase Prozac to 80 mg daily and call If not improve in the next 4-6 weeks. 6. Type 2 diabetes mellitus without complication, without long-term current use of insulin (HCC) - ICD9: 250.00, ICD10: E11.9 Controlled. - Continue current medications - Blood glucose monitoring on a once a day schedule - Encouraged regular aerobic exercise and weight loss - Follow up in 6 months, sooner should any other issues arise. - Discussed diabetic education issues of custodial diabetic complications, hypoglycemic symptoms, hyperglycemic symptoms, diet, medications- side effects and need for compliance, importance of exercise, and importance of annual examinations with Opthalmology with patient. 7. Essential hypertension - ICD9: 401.9, ICD10: I10 - good control - Continue current medication(s) - Encouraged dietary sodium restriction/DASH diet - Recommended regular aerobic exercise. - Reviewed risks of HTN and principles of treatment - Goal of BP <140/90 8. Morbid obesity with BMI of 50.0-59.9, adult (HCC) - ICD9: 278.01, V85.43, ICD10: E66.01, Z68.43 Weight decreasing - Behavioral intervention 9. Chronic respiratory failure with hypoxia (HCC) - ICD9: 518.83, 799.02, ICD10: J96.11 Using oxygen PRN still after previous infection with COVID. Keep follow up with pulmonology next muriel and continue current regimen. 10. History of COVID-19 - ICD9: V12.09, ICD10: Z86.16 See above. Jon Valenzuela MD documented in this encounter [facility] 02-10-2022 Miscellaneous Notes Patient has been identified by name and date of : Yes Patient phones for refill(s): Pending Prescriptions Disp Refills FLUOXETINE 40 MG CAPSULE 90 capsule 1 Sig: Take 1 capsule by mouth once daily. REJI: No Date of last office visit in primary care: 10/26/21 Future visit: 04/05/22 Last 2 Encounter Wt Readings: Date: Wt: 10/26/2021 123.1 kg (271 lb 6.4 oz) 10/05/2021 123.4 kg (272 lb) Previous labs/tests for medication: Blood Pressure: BUN (mg/dL) Date Value 08/17/2021 11 Sodium (mmol/L) Date Value 08/17/2021 137 Last 1 Encounter BP Readings: Date: BP: 10/26/2021 132/68 Liver Function: ALT (U/L) Date Value 08/17/2021 19 AST (U/L) Date Value 08/17/2021 23 Please advise. Thank you. Makayla Infante RN documented in this encounter [facility] 01-18-2022 Miscellaneous Notes Pt calling for refill. TREVOR: 10/26/21 NOV: 04/05/22 Last Refill: Primidone: 07/06/21 #15 5 refills Carvedilol: 12/19/20 #180 1 refill Laine Gutierrez LPN documented in this encounter [facility] 01-07-2022 Miscellaneous Notes Patient has been identified by name and date of : Yes Pending Prescriptions Disp Refills LOSARTAN 100 MG TABLET 90 tablet 1 Sig: Take 1 tablet by mouth once daily. REJI: No AMLODIPINE 10 MG TABLET 90 tablet 1 Sig: Take 1 tablet by mouth once daily. REJI: No RX INSTRUCTIONS: Patient aware RX will be sent to pharmacy. No need to notify patient. Mariaa Sapp Pss documented in this encounter [facility] 12-22-2021 Miscellaneous Notes Patient has been identified by name and date of : Yes Pending Prescriptions Disp Refills METFORMIN ER 500 MG TABLET,EXTENDED RELEASE 24 HR 360 tablet 3 Sig: Take 2 tablets by mouth twice daily before meals. REJI: No RX INSTRUCTIONS: Patient called to check on status, she tried to send on MyChart but did not work. She is out of medication for days. Please send today. Patient requesting a call when RX is approved and sent to the pharmacy. Please call patient at: Call once submitted Ny Landon Pss documented in this encounter [facility] 12-08-2021 Miscellaneous Notes Patient phones requesting refills as follows: Pending Prescriptions Disp Refills SIMVASTATIN 20 MG TABLET 90 tablet 1 Sig: Take 1 tablet by mouth daily at bedtime. REJI: No TREVOR 10/26/21 NOV 04/05/22 Please review and advise. Laine Parks LPN documented in this encounter [facility] 10-26-2021 Miscellaneous Notes Pt called and made aware. Voiced understanding. Lucy Foster LPN Left lung is clear. Right mid lung with possible small opacities which may represent infection/pneumonia. Will start on doxycycline for 10 days to cover possible pneumonia. Call with worsening symptoms as discussed in office. Hold calcium + vitamin D while on abx. documented in this encounter [facility] 10-23-2021 Miscellaneous Notes Please see patient's [employer] message sent in today. Ap Boogie Ma Does she have any SOB or wheezing? Using her albuterol? If so, how often? Patient reports at her Nov appt, pcp gave her an Rx for prednisone, to take if her respiratory symptoms return, but to call pcp first. She filled the Rx but has not taken it yet. Reports she has a constant cough, but it has gotten worse / harsh / raspy recently, some chest tightness, runny nose, scratchy throat. No fever. She has been sleeping in recliner recently d/t cough. POX running 92% on RA. Has oxygen she uses prn. Asking pcp if it would be ok if she started taking the prednisone now? Please advise patient. documented in this encounter [facility] documented as of this encounter (statuses as of 12/09/2021) [facility] History of Past illness Narrative* Problem Noted Date Resolved Date Type 2 diabetes mellitus without retinopathy 01/21/2020 Neuroendocrine tumor 01/07/2017 12/05/2020 Overview: History: 66 year old remote smoker with DM2, TIA, HTN, thrombocytosis, sleep apnea and morbid obesity (BMI 50), found to have a left lower lung nodule, which was biopsied 10/28/16 (OSH), revealing carcinoid tumor. PET scan 12/15/16 showed the 2.5 x 2.3 cm nodule in the left lower lobe to have increased FDG uptake (max SUV 7). It was felt due to her comorbidities, that a limited resection was indicated, so on 01/07/17, Dr. Santana performed a VATS left lower lung wedge resection. Assessment: hemodynamically stable Plan: -Diet: regular diet -Activity:ambulate 3-4 times a day -cough, deep breath, up and ambulate, use of coronet - desat study today (does require home O2) on RA at rest SpO2 86 % required 4L NC for SpO2 > 88%, with exertion required 6L NC to maintain SPO2 > 88%. - per Dr. Santana who spoke with Neuro patient no longer needs Plavix. . DISPOSITION AND FOLLOW-UP 01/07/20172016 Overview: History: and lives in [place], [place]. Admitted 01/07/17 for VATs lung wedge Assessment: discharge to home today given we can get her home O2 set up. Plan: - Discuss needs with patient and collaborate with case management - Will continue to evaluate during hospital admission. - d/c home today with home oxygen, follow up in 7-10 days with chest xray. Check oxygen requirements at follow up - keep hematology follow up that is scheduled in February. . Mechanical venous thromboembolism (VTE) prophyla xis in place 01/07/2017 01/09/2017 Overview: History: No history of DVT in the past. Now s/p VATS lung wedge 01/07/17 Assessment: High risk for DVT due to recent surgery and obesity. No leg pain, swelling or warmth on Lovenox 40mg daily subcutaneously and GABY hose. Plan: - Continue current regimen while in hospital - Encourage continued ambulation (at least TID) . Pain, postoperative, acute 01/07/201701/20 Overview: History: Status post: VATS lung wedge 01/07/17. Assessment: Current regimen: oxycodone 5-10 mg every 4 hours prn, tylenol 650 mg q6H prn. And ibuprofen 400 mg every 6 hours as needed Plan: - continue oxycodone, tylenol and ibuprofen. - Continue to re-assess pain control. - bowel regimen: dulc suppository, milk of mag prn, and daily Miralax . Encounter for preoperative a nesthesiology assessment for thoracic surgery 01/06/2017 12/07/2017 Astigmatism of eye 10/05/2016 10/11/2016 Combined forms of age-related cataract, right ey e 10/05/2016 01/21/2020 Essential thrombocytosis 05/11/2016 021 Overview: History: Home med: hydroxyurea (alternates 500 mg and 1000 mg every other day), plavix 75 mg daily (stopped 01/08/17) and aspirin 81 mg daily. Established with Dr. Melara ([facility]) Preop platelet was 406 (01/06/17) Assessment: No signs of bleeding ; platelets today 403 Plan: -monitor CBC -monitor for signs of bleeding -per Dr. Santana who spoke with neuro; no longer needs to take the Plavix. . Type 2 diabetes mellitus wit h diabetic neuropathy, without long-term current use of insulin 12/05/2020 documented as of this encounter (statuses as of 01/07/2022) [facility] History of Past illness Narrative* Problem Noted Date Resolved Date Type 2 diabetes mellitus without retinopathy 01/21/2020 Neuroendocrine tumor 01/07/2017 12/05/2020 Overview: History: 66 year old remote smoker with DM2, TIA, HTN, thrombocytosis, sleep apnea and morbid obesity (BMI 50), found to have a left lower lung nodule, which was biopsied 10/28/16 (OSH), revealing carcinoid tumor. PET scan 12/15/16 showed the 2.5 x 2.3 cm nodule in the left lower lobe to have increased FDG uptake (max SUV 7). It was felt due to her comorbidities, that a limited resection was indicated, so on 01/07/17, Dr. Santana performed a VATS left lower lung wedge resection. Assessment: hemodynamically stable Plan: -Diet: regular diet -Activity:ambulate 3-4 times a day -cough, deep breath, up and ambulate, use of coronet - desat study today (does require home O2) on RA at rest SpO2 86 % required 4L NC for SpO2 > 88%, with exertion required 6L NC to maintain SPO2 > 88%. - per Dr. Santana who spoke with Neuro patient no longer needs Plavix. . DISPOSITION AND FOLLOW-UP 01/07/20172016 Overview: History: and lives in [place], [place]. Admitted 01/07/17 for VATs lung wedge Assessment: discharge to home today given we can get her home O2 set up. Plan: - Discuss needs with patient and collaborate with case management - Will continue to evaluate during hospital admission. - d/c home today with home oxygen, follow up in 7-10 days with chest xray. Check oxygen requirements at follow up - keep hematology follow up that is scheduled in February. . Mechanical venous thromboembolism (VTE) prophyla xis in place 01/07/2017 01/09/2017 Overview: History: No history of DVT in the past. Now s/p VATS lung wedge 01/07/17 Assessment: High risk for DVT due to recent surgery and obesity. No leg pain, swelling or warmth on Lovenox 40mg daily subcutaneously and GABY hose. Plan: - Continue current regimen while in hospital - Encourage continued ambulation (at least TID) . Pain, postoperative, acute 01/07/201701/20 Overview: History: Status post: VATS lung wedge 01/07/17. Assessment: Current regimen: oxycodone 5-10 mg every 4 hours prn, tylenol 650 mg q6H prn. And ibuprofen 400 mg every 6 hours as needed Plan: - continue oxycodone, tylenol and ibuprofen. - Continue to re-assess pain control. - bowel regimen: dulc suppository, milk of mag prn, and daily Miralax . Encounter for preoperative a nesthesiology assessment for thoracic surgery 01/06/2017 12/07/2017 Astigmatism of eye 10/05/2016 10/11/2016 Combined forms of age-related cataract, right ey e 10/05/2016 01/21/2020 Essential thrombocytosis 05/11/2016 021 Overview: History: Home med: hydroxyurea (alternates 500 mg and 1000 mg every other day), plavix 75 mg daily (stopped 01/08/17) and aspirin 81 mg daily. Established with Dr. Melara ([facility]) Preop platelet was 406 (01/06/17) Assessment: No signs of bleeding ; platelets today 403 Plan: -monitor CBC -monitor for signs of bleeding -per Dr. Santana who spoke with neuro; no longer needs to take the Plavix. . Type 2 diabetes mellitus wit h diabetic neuropathy, without long-term current use of insulin 12/05/2020 documented as of this encounter (statuses as of 01/08/2022) [facility] History of Past illness Narrative* Problem Noted Date Resolved Date Type 2 diabetes mellitus without retinopathy 01/21/2020 Neuroendocrine tumor 01/07/2017 12/05/2020 Overview: History: 66 year old remote smoker with DM2, TIA, HTN, thrombocytosis, sleep apnea and morbid obesity (BMI 50), found to have a left lower lung nodule, which was biopsied 10/28/16 (OSH), revealing carcinoid tumor. PET scan 12/15/16 showed the 2.5 x 2.3 cm nodule in the left lower lobe to have increased FDG uptake (max SUV 7). It was felt due to her comorbidities, that a limited resection was indicated, so on 01/07/17, Dr. Santana performed a VATS left lower lung wedge resection. Assessment: hemodynamically stable Plan: -Diet: regular diet -Activity:ambulate 3-4 times a day -cough, deep breath, up and ambulate, use of coronet - desat study today (does require home O2) on RA at rest SpO2 86 % required 4L NC for SpO2 > 88%, with exertion required 6L NC to maintain SPO2 > 88%. - per Dr. Santana who spoke with Neuro patient no longer needs Plavix. . DISPOSITION AND FOLLOW-UP 01/07/20172016 Overview: History: and lives in [place], [place]. Admitted 01/07/17 for VATs lung wedge Assessment: discharge to home today given we can get her home O2 set up. Plan: - Discuss needs with patient and collaborate with case management - Will continue to evaluate during hospital admission. - d/c home today with home oxygen, follow up in 7-10 days with chest xray. Check oxygen requirements at follow up - keep hematology follow up that is scheduled in February. . Mechanical venous thromboembolism (VTE) prophyla xis in place 01/07/2017 01/09/2017 Overview: History: No history of DVT in the past. Now s/p VATS lung wedge 01/07/17 Assessment: High risk for DVT due to recent surgery and obesity. No leg pain, swelling or warmth on Lovenox 40mg daily subcutaneously and GABY hose. Plan: - Continue current regimen while in hospital - Encourage continued ambulation (at least TID) . Pain, postoperative, acute 01/07/201701/20 Overview: History: Status post: VATS lung wedge 01/07/17. Assessment: Current regimen: oxycodone 5-10 mg every 4 hours prn, tylenol 650 mg q6H prn. And ibuprofen 400 mg every 6 hours as needed Plan: - continue oxycodone, tylenol and ibuprofen. - Continue to re-assess pain control. - bowel regimen: dulc suppository, milk of mag prn, and daily Miralax . Encounter for preoperative a nesthesiology assessment for thoracic surgery 01/06/2017 12/07/2017 Astigmatism of eye 10/05/2016 10/11/2016 Combined forms of age-related cataract, right ey e 10/05/2016 01/21/2020 Essential thrombocytosis 05/11/2016 021 Overview: History: Home med: hydroxyurea (alternates 500 mg and 1000 mg every other day), plavix 75 mg daily (stopped 01/08/17) and aspirin 81 mg daily. Established with Dr. Melara ([facility]) Preop platelet was 406 (01/06/17) Assessment: No signs of bleeding ; platelets today 403 Plan: -monitor CBC -monitor for signs of bleeding -per Dr. Santana who spoke with neuro; no longer needs to take the Plavix. . Type 2 diabetes mellitus wit h diabetic neuropathy, without long-term current use of insulin 12/05/2020 documented as of this encounter (statuses as of 01/20/2022) [facility] History of Past illness Narrative* Problem Noted Date Resolved Date Type 2 diabetes mellitus without retinopathy 01/21/2020 Neuroendocrine tumor 01/07/2017 12/05/2020 Overview: History: 66 year old remote smoker with DM2, TIA, HTN, thrombocytosis, sleep apnea and morbid obesity (BMI 50), found to have a left lower lung nodule, which was biopsied 10/28/16 (OSH), revealing carcinoid tumor. PET scan 12/15/16 showed the 2.5 x 2.3 cm nodule in the left lower lobe to have increased FDG uptake (max SUV 7). It was felt due to her comorbidities, that a limited resection was indicated, so on 01/07/17, Dr. Santana performed a VATS left lower lung wedge resection. Assessment: hemodynamically stable Plan: -Diet: regular diet -Activity:ambulate 3-4 times a day -cough, deep breath, up and ambulate, use of coronet - desat study today (does require home O2) on RA at rest SpO2 86 % required 4L NC for SpO2 > 88%, with exertion required 6L NC to maintain SPO2 > 88%. - per Dr. Santana who spoke with Neuro patient no longer needs Plavix. . DISPOSITION AND FOLLOW-UP 01/07/20172016 Overview: History: and lives in [place], [place]. Admitted 01/07/17 for VATs lung wedge Assessment: discharge to home today given we can get her home O2 set up. Plan: - Discuss needs with patient and collaborate with case management - Will continue to evaluate during hospital admission. - d/c home today with home oxygen, follow up in 7-10 days with chest xray. Check oxygen requirements at follow up - keep hematology follow up that is scheduled in February. . Mechanical venous thromboembolism (VTE) prophyla xis in place 01/07/2017 01/09/2017 Overview: History: No history of DVT in the past. Now s/p VATS lung wedge 01/07/17 Assessment: High risk for DVT due to recent surgery and obesity. No leg pain, swelling or warmth on Lovenox 40mg daily subcutaneously and GABY hose. Plan: - Continue current regimen while in hospital - Encourage continued ambulation (at least TID) . Pain, postoperative, acute 01/07/201701/20 Overview: History: Status post: VATS lung wedge 01/07/17. Assessment: Current regimen: oxycodone 5-10 mg every 4 hours prn, tylenol 650 mg q6H prn. And ibuprofen 400 mg every 6 hours as needed Plan: - continue oxycodone, tylenol and ibuprofen. - Continue to re-assess pain control. - bowel regimen: dulc suppository, milk of mag prn, and daily Miralax . Encounter for preoperative a nesthesiology assessment for thoracic surgery 01/06/2017 12/07/2017 Astigmatism of eye 10/05/2016 10/11/2016 Combined forms of age-related cataract, right ey e 10/05/2016 01/21/2020 Essential thrombocytosis 05/11/2016 021 Overview: History: Home med: hydroxyurea (alternates 500 mg and 1000 mg every other day), plavix 75 mg daily (stopped 01/08/17) and aspirin 81 mg daily. Established with Dr. Melara ([facility]) Preop platelet was 406 (01/06/17) Assessment: No signs of bleeding ; platelets today 403 Plan: -monitor CBC -monitor for signs of bleeding -per Dr. Santana who spoke with neuro; no longer needs to take the Plavix. . Type 2 diabetes mellitus wit h diabetic neuropathy, without long-term current use of insulin 12/05/2020 documented as of this encounter (statuses as of 02/10/2022) [facility] History of Past illness Narrative* Problem Noted Date Resolved Date Type 2 diabetes mellitus without retinopathy 01/21/2020 Neuroendocrine tumor 01/07/2017 12/05/2020 Overview: History: 66 year old remote smoker with DM2, TIA, HTN, thrombocytosis, sleep apnea and morbid obesity (BMI 50), found to have a left lower lung nodule, which was biopsied 10/28/16 (OSH), revealing carcinoid tumor. PET scan 12/15/16 showed the 2.5 x 2.3 cm nodule in the left lower lobe to have increased FDG uptake (max SUV 7). It was felt due to her comorbidities, that a limited resection was indicated, so on 01/07/17, Dr. Santana performed a VATS left lower lung wedge resection. Assessment: hemodynamically stable Plan: -Diet: regular diet -Activity:ambulate 3-4 times a day -cough, deep breath, up and ambulate, use of coronet - desat study today (does require home O2) on RA at rest SpO2 86 % required 4L NC for SpO2 > 88%, with exertion required 6L NC to maintain SPO2 > 88%. - per Dr. Santana who spoke with Neuro patient no longer needs Plavix. . DISPOSITION AND FOLLOW-UP 01/07/20172016 Overview: History: and lives in [place], [place]. Admitted 01/07/17 for VATs lung wedge Assessment: discharge to home today given we can get her home O2 set up. Plan: - Discuss needs with patient and collaborate with case management - Will continue to evaluate during hospital admission. - d/c home today with home oxygen, follow up in 7-10 days with chest xray. Check oxygen requirements at follow up - keep hematology follow up that is scheduled in February. . Mechanical venous thromboembolism (VTE) prophyla xis in place 01/07/2017 01/09/2017 Overview: History: No history of DVT in the past. Now s/p VATS lung wedge 01/07/17 Assessment: High risk for DVT due to recent surgery and obesity. No leg pain, swelling or warmth on Lovenox 40mg daily subcutaneously and GABY hose. Plan: - Continue current regimen while in hospital - Encourage continued ambulation (at least TID) . Pain, postoperative, acute 01/07/201701/20 Overview: History: Status post: VATS lung wedge 01/07/17. Assessment: Current regimen: oxycodone 5-10 mg every 4 hours prn, tylenol 650 mg q6H prn. And ibuprofen 400 mg every 6 hours as needed Plan: - continue oxycodone, tylenol and ibuprofen. - Continue to re-assess pain control. - bowel regimen: dulc suppository, milk of mag prn, and daily Miralax . Encounter for preoperative a nesthesiology assessment for thoracic surgery 01/06/2017 12/07/2017 Astigmatism of eye 10/05/2016 10/11/2016 Combined forms of age-related cataract, right ey e 10/05/2016 01/21/2020 Essential thrombocytosis 05/11/2016 021 Overview: History: Home med: hydroxyurea (alternates 500 mg and 1000 mg every other day), plavix 75 mg daily (stopped 01/08/17) and aspirin 81 mg daily. Established with Dr. Melara ([facility]) Preop platelet was 406 (01/06/17) Assessment: No signs of bleeding ; platelets today 403 Plan: -monitor CBC -monitor for signs of bleeding -per Dr. Santana who spoke with neuro; no longer needs to take the Plavix. . Type 2 diabetes mellitus wit h diabetic neuropathy, without long-term current use of insulin 12/05/2020 documented as of this encounter (statuses as of 02/10/2022) [facility] History of Past illness Narrative* Problem Noted Date Resolved Date Type 2 diabetes mellitus without retinopathy 01/21/2020 Neuroendocrine tumor 01/07/2017 12/05/2020 Overview: History: 66 year old remote smoker with DM2, TIA, HTN, thrombocytosis, sleep apnea and morbid obesity (BMI 50), found to have a left lower lung nodule, which was biopsied 10/28/16 (OSH), revealing carcinoid tumor. PET scan 12/15/16 showed the 2.5 x 2.3 cm nodule in the left lower lobe to have increased FDG uptake (max SUV 7). It was felt due to her comorbidities, that a limited resection was indicated, so on 01/07/17, Dr. Santana performed a VATS left lower lung wedge resection. Assessment: hemodynamically stable Plan: -Diet: regular diet -Activity:ambulate 3-4 times a day -cough, deep breath, up and ambulate, use of coronet - desat study today (does require home O2) on RA at rest SpO2 86 % required 4L NC for SpO2 > 88%, with exertion required 6L NC to maintain SPO2 > 88%. - per Dr. Santana who spoke with Neuro patient no longer needs Plavix. . DISPOSITION AND FOLLOW-UP 01/07/20172016 Overview: History: and lives in [place], [place]. Admitted 01/07/17 for VATs lung wedge Assessment: discharge to home today given we can get her home O2 set up. Plan: - Discuss needs with patient and collaborate with case management - Will continue to evaluate during hospital admission. - d/c home today with home oxygen, follow up in 7-10 days with chest xray. Check oxygen requirements at follow up - keep hematology follow up that is scheduled in February. . Mechanical venous thromboembolism (VTE) prophyla xis in place 01/07/2017 01/09/2017 Overview: History: No history of DVT in the past. Now s/p VATS lung wedge 01/07/17 Assessment: High risk for DVT due to recent surgery and obesity. No leg pain, swelling or warmth on Lovenox 40mg daily subcutaneously and GABY hose. Plan: - Continue current regimen while in hospital - Encourage continued ambulation (at least TID) . Pain, postoperative, acute 01/07/201701/20 Overview: History: Status post: VATS lung wedge 01/07/17. Assessment: Current regimen: oxycodone 5-10 mg every 4 hours prn, tylenol 650 mg q6H prn. And ibuprofen 400 mg every 6 hours as needed Plan: - continue oxycodone, tylenol and ibuprofen. - Continue to re-assess pain control. - bowel regimen: dulc suppository, milk of mag prn, and daily Miralax . Encounter for preoperative a nesthesiology assessment for thoracic surgery 01/06/2017 12/07/2017 Astigmatism of eye 10/05/2016 10/11/2016 Combined forms of age-related cataract, right ey e 10/05/2016 01/21/2020 Essential thrombocytosis 05/11/2016 021 Overview: History: Home med: hydroxyurea (alternates 500 mg and 1000 mg every other day), plavix 75 mg daily (stopped 01/08/17) and aspirin 81 mg daily. Established with Dr. Melara ([facility]) Preop platelet was 406 (01/06/17) Assessment: No signs of bleeding ; platelets today 403 Plan: -monitor CBC -monitor for signs of bleeding -per Dr. Santana who spoke with neuro; no longer needs to take the Plavix. . Type 2 diabetes mellitus wit h diabetic neuropathy, without long-term current use of insulin 12/05/2020 documented as of this encounter (statuses as of 03/31/2022) [facility]04-24-2018 History of Past illness Narrative* Problem Noted Date Resolved Date Type 2 diabetes mellitus without retinopathy 01/21/2020 Neuroendocrine tumor 01/07/2017 12/05/2020 Overview: History: 66 year old remote smoker with DM2, TIA, HTN, thrombocytosis, sleep apnea and morbid obesity (BMI 50), found to have a left lower lung nodule, which was biopsied 10/28/16 (OS[facility]), revealing carcinoid tumor. PET scan 12/15/16 showed the 2.5 x 2.3 cm nodule in the left lower lobe to have increased FDG uptake (max SUV 7). It was felt due to her comorbidities, that a limited resection was indicated, so on 01/07/17, Dr. Santana performed a VATS left lower lung wedge resection. Assessment: hemodynamically stable Plan: -Diet: regular diet -Activity:ambulate 3-4 times a day -cough, deep breath, up and ambulate, use of coronet - desat study today (does require home O2) on RA at rest SpO2 86 % required 4L NC for SpO2 > 88%, with exertion required 6L NC to maintain SPO2 > 88%. - per Dr. Santana who spoke with Neuro patient no longer needs Plavix. . DISPOSITION AND FOLLOW-UP 01/07/20172016 Overview: History: and lives in [place], [place]. Admitted 01/07/17 for VATs lung wedge Assessment: discharge to home today given we can get her home O2 set up. Plan: - Discuss needs with patient and collaborate with case management - Will continue to evaluate during hospital admission. - d/c home today with home oxygen, follow up in 7-10 days with chest xray. Check oxygen requirements at follow up - keep hematology follow up that is scheduled in February. . Mechanical venous thromboembolism (VTE) prophyla xis in place 01/07/2017 01/09/2017 Overview: History: No history of DVT in the past. Now s/p VATS lung wedge 01/07/17 Assessment: High risk for DVT due to recent surgery and obesity. No leg pain, swelling or warmth on Lovenox 40mg daily subcutaneously and GABY hose. Plan: - Continue current regimen while in hospital - Encourage continued ambulation (at least TID) . Pain, postoperative, acute 01/07/201701/20 Overview: History: Status post: VATS lung wedge 01/07/17. Assessment: Current regimen: oxycodone 5-10 mg every 4 hours prn, tylenol 650 mg q6H prn. And ibuprofen 400 mg every 6 hours as needed Plan: - continue oxycodone, tylenol and ibuprofen. - Continue to re-assess pain control. - bowel regimen: dulc suppository, milk of mag prn, and daily Miralax . Encounter for preoperative a nesthesiology assessment for thoracic surgery 01/06/2017 12/07/2017 Astigmatism of eye 10/05/2016 10/11/2016 Combined forms of age-related cataract, right ey e 10/05/2016 01/21/2020 Essential thrombocytosis 05/11/2016 021 Overview: History: Home med: hydroxyurea (alternates 500 mg and 1000 mg every other day), plavix 75 mg daily (stopped 01/08/17) and aspirin 81 mg daily. Established with Dr. Melara ([facility]) Preop platelet was 406 (01/06/17) Assessment: No signs of bleeding ; platelets today 403 Plan: -monitor CBC -monitor for signs of bleeding -per Dr. Santana who spoke with neuro; no longer needs to take the Plavix. . Type 2 diabetes mellitus wit h diabetic neuropathy, without long-term current use of insulin 12/05/2020 documented as of this encounter (statuses as of 04/07/2022) [facility]04-24-2018 History of Past illness Narrative* Problem Noted Date Resolved Date Type 2 diabetes mellitus without retinopathy 01/21/2020 Neuroendocrine tumor 01/07/2017 12/05/2020 Overview: History: 66 year old remote smoker with DM2, TIA, HTN, thrombocytosis, sleep apnea and morbid obesity (BMI 50), found to have a left lower lung nodule, which was biopsied 10/28/16 ([facility]), revealing carcinoid tumor. PET scan 12/15/16 showed the 2.5 x 2.3 cm nodule in the left lower lobe to have increased FDG uptake (max SUV 7). It was felt due to her comorbidities, that a limited resection was indicated, so on 01/07/17, Dr. Santana performed a VATS left lower lung wedge resection. Assessment: hemodynamically stable Plan: -Diet: regular diet -Activity:ambulate 3-4 times a day -cough, deep breath, up and ambulate, use of coronet - desat study today (does require home O2) on RA at rest SpO2 86 % required 4L NC for SpO2 > 88%, with exertion required 6L NC to maintain SPO2 > 88%. - per Dr. Santana who spoke with Neuro patient no longer needs Plavix. . DISPOSITION AND FOLLOW-UP 01/07/20172016 Overview: History: and lives in [place], [place]. Admitted 01/07/17 for VATs lung wedge Assessment: discharge to home today given we can get her home O2 set up. Plan: - Discuss needs with patient and collaborate with case management - Will continue to evaluate during hospital admission. - d/c home today with home oxygen, follow up in 7-10 days with chest xray. Check oxygen requirements at follow up - keep hematology follow up that is scheduled in February. . Mechanical venous thromboembolism (VTE) prophyla xis in place 01/07/2017 01/09/2017 Overview: History: No history of DVT in the past. Now s/p VATS lung wedge 01/07/17 Assessment: High risk for DVT due to recent surgery and obesity. No leg pain, swelling or warmth on Lovenox 40mg daily subcutaneously and GABY hose. Plan: - Continue current regimen while in hospital - Encourage continued ambulation (at least TID) . Pain, postoperative, acute 01/07/201701/20 Overview: History: Status post: VATS lung wedge 01/07/17. Assessment: Current regimen: oxycodone 5-10 mg every 4 hours prn, tylenol 650 mg q6H prn. And ibuprofen 400 mg every 6 hours as needed Plan: - continue oxycodone, tylenol and ibuprofen. - Continue to re-assess pain control. - bowel regimen: dulc suppository, milk of mag prn, and daily Miralax . Encounter for preoperative a nesthesiology assessment for thoracic surgery 01/06/2017 12/07/2017 Astigmatism of eye 10/05/2016 10/11/2016 Combined forms of age-related cataract, right ey e 10/05/2016 01/21/2020 Essential thrombocytosis 05/11/2016 021 Overview: History: Home med: hydroxyurea (alternates 500 mg and 1000 mg every other day), plavix 75 mg daily (stopped 01/08/17) and aspirin 81 mg daily. Established with Dr. Melara ([facility]) Preop platelet was 406 (01/06/17) Assessment: No signs of bleeding ; platelets today 403 Plan: -monitor CBC -monitor for signs of bleeding -per Dr. Santana who spoke with neuro; no longer needs to take the Plavix. . Type 2 diabetes mellitus wit h diabetic neuropathy, without long-term current use of insulin 12/05/2020 documented as of this encounter (statuses as of 04/30/2022) [facility]04-[facility]-2018 History of Past illness Narrative* Problem Noted Date Resolved Date Type 2 diabetes mellitus without retinopathy 01/21/2020 Neuroendocrine tumor 01/07/2017 12/05/2020 Overview: History: 66 year old remote smoker with DM2, TIA, HTN, thrombocytosis, sleep apnea and morbid obesity (BMI 50), found to have a left lower lung nodule, which was biopsied 10/28/16 ([facility]), revealing carcinoid tumor. PET scan 12/15/16 showed the 2.5 x 2.3 cm nodule in the left lower lobe to have increased FDG uptake (max SUV 7). It was felt due to her comorbidities, that a limited resection was indicated, so on 01/07/17, Dr. Santana performed a VATS left lower lung wedge resection. Assessment: hemodynamically stable Plan: -Diet: regular diet -Activity:ambulate 3-4 times a day -cough, deep breath, up and ambulate, use of coronet - desat study today (does require home O2) on RA at rest SpO2 86 % required 4L NC for SpO2 > 88%, with exertion required 6L NC to maintain SPO2 > 88%. - per Dr. Santana who spoke with Neuro patient no longer needs Plavix. . DISPOSITION AND FOLLOW-UP 01/07/20172016 Overview: History: and lives in [place], [place]. Admitted 01/07/17 for VATs lung wedge Assessment: discharge to home today given we can get her home O2 set up. Plan: - Discuss needs with patient and collaborate with case management - Will continue to evaluate during hospital admission. - d/c home today with home oxygen, follow up in 7-10 days with chest xray. Check oxygen requirements at follow up - keep hematology follow up that is scheduled in February. . Mechanical venous thromboembolism (VTE) prophyla xis in place 01/07/2017 01/09/2017 Overview: History: No history of DVT in the past. Now s/p VATS lung wedge 01/07/17 Assessment: High risk for DVT due to recent surgery and obesity. No leg pain, swelling or warmth on Lovenox 40mg daily subcutaneously and GABY hose. Plan: - Continue current regimen while in hospital - Encourage continued ambulation (at least TID) . Pain, postoperative, acute 01/07/201701/20 Overview: History: Status post: VATS lung wedge 01/07/17. Assessment: Current regimen: oxycodone 5-10 mg every 4 hours prn, tylenol 650 mg q6H prn. And ibuprofen 400 mg every 6 hours as needed Plan: - continue oxycodone, tylenol and ibuprofen. - Continue to re-assess pain control. - bowel regimen: dulc suppository, milk of mag prn, and daily Miralax . Encounter for preoperative a nesthesiology assessment for thoracic surgery 01/06/2017 12/07/2017 Astigmatism of eye 10/05/2016 10/11/2016 Combined forms of age-related cataract, right ey e 10/05/2016 01/21/2020 Essential thrombocytosis 05/11/2016 021 Overview: History: Home med: hydroxyurea (alternates 500 mg and 1000 mg every other day), plavix 75 mg daily (stopped 01/08/17) and aspirin 81 mg daily. Established with Dr. Melara ([facility]) Preop platelet was 406 (01/06/17) Assessment: No signs of bleeding ; platelets today 403 Plan: -monitor CBC -monitor for signs of bleeding -per Dr. Santana who spoke with neuro; no longer needs to take the Plavix. . Type 2 diabetes mellitus wit h diabetic neuropathy, without long-term current use of insulin 12/05/2020 documented as of this encounter (statuses as of 05/04/2022) [facility]04-[facility]-2018 History of Past illness Narrative* Problem Noted Date Resolved Date Type 2 diabetes mellitus without retinopathy 01/21/2020 Neuroendocrine tumor 01/07/2017 12/05/2020 Overview: History: 66 year old remote smoker with DM2, TIA, HTN, thrombocytosis, sleep apnea and morbid obesity (BMI 50), found to have a left lower lung nodule, which was biopsied 10/28/16 ([facility]), revealing carcinoid tumor. PET scan 12/15/16 showed the 2.5 x 2.3 cm nodule in the left lower lobe to have increased FDG uptake (max SUV 7). It was felt due to her comorbidities, that a limited resection was indicated, so on 01/07/17, Dr. Santana performed a VATS left lower lung wedge resection. Assessment: hemodynamically stable Plan: -Diet: regular diet -Activity:ambulate 3-4 times a day -cough, deep breath, up and ambulate, use of coronet - desat study today (does require home O2) on RA at rest SpO2 86 % required 4L NC for SpO2 > 88%, with exertion required 6L NC to maintain SPO2 > 88%. - per Dr. Santana who spoke with Neuro patient no longer needs Plavix. . DISPOSITION AND FOLLOW-UP 01/07/20172016 Overview: History: and lives in [place], [place]. Admitted 01/07/17 for VATs lung wedge Assessment: discharge to home today given we can get her home O2 set up. Plan: - Discuss needs with patient and collaborate with case management - Will continue to evaluate during hospital admission. - d/c home today with home oxygen, follow up in 7-10 days with chest xray. Check oxygen requirements at follow up - keep hematology follow up that is scheduled in February. . Mechanical venous thromboembolism (VTE) prophyla xis in place 01/07/2017 01/09/2017 Overview: History: No history of DVT in the past. Now s/p VATS lung wedge 01/07/17 Assessment: High risk for DVT due to recent surgery and obesity. No leg pain, swelling or warmth on Lovenox 40mg daily subcutaneously and GABY hose. Plan: - Continue current regimen while in hospital - Encourage continued ambulation (at least TID) . Pain, postoperative, acute 01/07/201701/20 Overview: History: Status post: VATS lung wedge 01/07/17. Assessment: Current regimen: oxycodone 5-10 mg every 4 hours prn, tylenol 650 mg q6H prn. And ibuprofen 400 mg every 6 hours as needed Plan: - continue oxycodone, tylenol and ibuprofen. - Continue to re-assess pain control. - bowel regimen: dulc suppository, milk of mag prn, and daily Miralax . Encounter for preoperative a nesthesiology assessment for thoracic surgery 01/06/2017 12/07/2017 Astigmatism of eye 10/05/2016 10/11/2016 Combined forms of age-related cataract, right ey e 10/05/2016 01/21/2020 Essential thrombocytosis 05/11/2016 021 Overview: History: Home med: hydroxyurea (alternates 500 mg and 1000 mg every other day), plavix 75 mg daily (stopped 01/08/17) and aspirin 81 mg daily. Established with Dr. Melara ([facility]) Preop platelet was 406 (01/06/17) Assessment: No signs of bleeding ; platelets today 403 Plan: -monitor CBC -monitor for signs of bleeding -per Dr. Santana who spoke with neuro; no longer needs to take the Plavix. . Type 2 diabetes mellitus wit h diabetic neuropathy, without long-term current use of insulin 12/05/2020 documented as of this encounter (statuses as of 05/05/2022) [facility]04[facility] History of Past illness Narrative* Problem Noted Date Resolved Date Type 2 diabetes mellitus without retinopathy 01/21/2020 Neuroendocrine tumor 01/07/2017 12/05/2020 Overview: History: 66 year old remote smoker with DM2, TIA, HTN, thrombocytosis, sleep apnea and morbid obesity (BMI 50), found to have a left lower lung nodule, which was biopsied 10/28/16 ([facility]), revealing carcinoid tumor. PET scan 12/15/16 showed the 2.5 x 2.3 cm nodule in the left lower lobe to have increased FDG uptake (max SUV 7). It was felt due to her comorbidities, that a limited resection was indicated, so on 01/07/17, Dr. Santana performed a VATS left lower lung wedge resection. Assessment: hemodynamically stable Plan: -Diet: regular diet -Activity:ambulate 3-4 times a day -cough, deep breath, up and ambulate, use of coronet - desat study today (does require home O2) on RA at rest SpO2 86 % required 4L NC for SpO2 > 88%, with exertion required 6L NC to maintain SPO2 > 88%. - per Dr. Santana who spoke with Neuro patient no longer needs Plavix. . DISPOSITION AND FOLLOW-UP 01/07/20172016 Overview: History: and lives in [place], [place]. Admitted 01/07/17 for VATs lung wedge Assessment: discharge to home today given we can get her home O2 set up. Plan: - Discuss needs with patient and collaborate with case management - Will continue to evaluate during hospital admission. - d/c home today with home oxygen, follow up in 7-10 days with chest xray. Check oxygen requirements at follow up - keep hematology follow up that is scheduled in February. . Mechanical venous thromboembolism (VTE) prophyla xis in place 01/07/2017 01/09/2017 Overview: History: No history of DVT in the past. Now s/p VATS lung wedge 01/07/17 Assessment: High risk for DVT due to recent surgery and obesity. No leg pain, swelling or warmth on Lovenox 40mg daily subcutaneously and GABY hose. Plan: - Continue current regimen while in hospital - Encourage continued ambulation (at least TID) . Pain, postoperative, acute 01/07/201701/20 Overview: History: Status post: VATS lung wedge 01/07/17. Assessment: Current regimen: oxycodone 5-10 mg every 4 hours prn, tylenol 650 mg q6H prn. And ibuprofen 400 mg every 6 hours as needed Plan: - continue oxycodone, tylenol and ibuprofen. - Continue to re-assess pain control. - bowel regimen: dulc suppository, milk of mag prn, and daily Miralax . Encounter for preoperative a nesthesiology assessment for thoracic surgery 01/06/2017 12/07/2017 Astigmatism of eye 10/05/2016 10/11/2016 Combined forms of age-related cataract, right ey e 10/05/2016 01/21/2020 Essential thrombocytosis 05/11/2016 021 Overview: History: Home med: hydroxyurea (alternates 500 mg and 1000 mg every other day), plavix 75 mg daily (stopped 01/08/17) and aspirin 81 mg daily. Established with Dr. Melara ([facility]) Preop platelet was 406 (01/06/17) Assessment: No signs of bleeding ; platelets today 403 Plan: -monitor CBC -monitor for signs of bleeding -per Dr. Santana who spoke with neuro; no longer needs to take the Plavix. . Type 2 diabetes mellitus wit h diabetic neuropathy, without long-term current use of insulin 12/05/2020 documented as of this encounter (statuses as of 05/06/2022) [facility] History of Past illness Narrative* Problem Noted Date Resolved Date Type 2 diabetes mellitus without retinopathy 01/21/2020 Neuroendocrine tumor 01/07/2017 12/05/2020 Overview: History: 66 year old remote smoker with DM2, TIA, HTN, thrombocytosis, sleep apnea and morbid obesity (BMI 50), found to have a left lower lung nodule, which was biopsied 10/28/16 ([facility]), revealing carcinoid tumor. PET scan 12/15/16 showed the 2.5 x 2.3 cm nodule in the left lower lobe to have increased FDG uptake (max SUV 7). It was felt due to her comorbidities, that a limited resection was indicated, so on 01/07/17, Dr. Santana performed a VATS left lower lung wedge resection. Assessment: hemodynamically stable Plan: -Diet: regular diet -Activity:ambulate 3-4 times a day -cough, deep breath, up and ambulate, use of coronet - desat study today (does require home O2) on RA at rest SpO2 86 % required 4L NC for SpO2 > 88%, with exertion required 6L NC to maintain SPO2 > 88%. - per Dr. Santana who spoke with Neuro patient no longer needs Plavix. . DISPOSITION AND FOLLOW-UP 01/07/20172016 Overview: History: and lives in [place], [place]. Admitted 01/07/17 for VATs lung wedge Assessment: discharge to home today given we can get her home O2 set up. Plan: - Discuss needs with patient and collaborate with case management - Will continue to evaluate during hospital admission. - d/c home today with home oxygen, follow up in 7-10 days with chest xray. Check oxygen requirements at follow up - keep hematology follow up that is scheduled in February. . Mechanical venous thromboembolism (VTE) prophyla xis in place 01/07/2017 01/09/2017 Overview: History: No history of DVT in the past. Now s/p VATS lung wedge 01/07/17 Assessment: High risk for DVT due to recent surgery and obesity. No leg pain, swelling or warmth on Lovenox 40mg daily subcutaneously and GABY hose. Plan: - Continue current regimen while in hospital - Encourage continued ambulation (at least TID) . Pain, postoperative, acute 01/07/201701/20 Overview: History: Status post: VATS lung wedge 01/07/17. Assessment: Current regimen: oxycodone 5-10 mg every 4 hours prn, tylenol 650 mg q6H prn. And ibuprofen 400 mg every 6 hours as needed Plan: - continue oxycodone, tylenol and ibuprofen. - Continue to re-assess pain control. - bowel regimen: dulc suppository, milk of mag prn, and daily Miralax . Encounter for preoperative a nesthesiology assessment for thoracic surgery 01/06/2017 12/07/2017 Astigmatism of eye 10/05/2016 10/11/2016 Combined forms of age-related cataract, right ey e 10/05/2016 01/21/2020 Essential thrombocytosis 05/11/2016 021 Overview: History: Home med: hydroxyurea (alternates 500 mg and 1000 mg every other day), plavix 75 mg daily (stopped 01/08/17) and aspirin 81 mg daily. Established with Dr. Melara ([facility]) Preop platelet was 406 (01/06/17) Assessment: No signs of bleeding ; platelets today 403 Plan: -monitor CBC -monitor for signs of bleeding -per Dr. Santana who spoke with neuro; no longer needs to take the Plavix. . Type 2 diabetes mellitus wit h diabetic neuropathy, without long-term current use of insulin 12/05/2020 documented as of this encounter (statuses as of 05/06/2022) [facility] History of Past illness Narrative* Problem Noted Date Resolved Date Type 2 diabetes mellitus without retinopathy 01/21/2020 Neuroendocrine tumor 01/07/2017 12/05/2020 Overview: History: 66 year old remote smoker with DM2, TIA, HTN, thrombocytosis, sleep apnea and morbid obesity (BMI 50), found to have a left lower lung nodule, which was biopsied 10/28/16 (OSH), revealing carcinoid tumor. PET scan 12/15/16 showed the 2.5 x 2.3 cm nodule in the left lower lobe to have increased FDG uptake (max SUV 7). It was felt due to her comorbidities, that a limited resection was indicated, so on 01/07/17, Dr. Santana performed a VATS left lower lung wedge resection. Assessment: hemodynamically stable Plan: -Diet: regular diet -Activity:ambulate 3-4 times a day -cough, deep breath, up and ambulate, use of coronet - desat study today (does require home O2) on RA at rest SpO2 86 % required 4L NC for SpO2 > 88%, with exertion required 6L NC to maintain SPO2 > 88%. - per Dr. Santana who spoke with Neuro patient no longer needs Plavix. . DISPOSITION AND FOLLOW-UP 01/07/20172016 Overview: History: and lives in [place], [place]. Admitted 01/07/17 for VATs lung wedge Assessment: discharge to home today given we can get her home O2 set up. Plan: - Discuss needs with patient and collaborate with case management - Will continue to evaluate during hospital admission. - d/c home today with home oxygen, follow up in 7-10 days with chest xray. Check oxygen requirements at follow up - keep hematology follow up that is scheduled in February. . Mechanical venous thromboembolism (VTE) prophyla xis in place 01/07/2017 01/09/2017 Overview: History: No history of DVT in the past. Now s/p VATS lung wedge 01/07/17 Assessment: High risk for DVT due to recent surgery and obesity. No leg pain, swelling or warmth on Lovenox 40mg daily subcutaneously and GABY hose. Plan: - Continue current regimen while in hospital - Encourage continued ambulation (at least TID) . Pain, postoperative, acute 01/07/201701/20 Overview: History: Status post: VATS lung wedge 01/07/17. Assessment: Current regimen: oxycodone 5-10 mg every 4 hours prn, tylenol 650 mg q6H prn. And ibuprofen 400 mg every 6 hours as needed Plan: - continue oxycodone, tylenol and ibuprofen. - Continue to re-assess pain control. - bowel regimen: dulc suppository, milk of mag prn, and daily Miralax . Encounter for preoperative a nesthesiology assessment for thoracic surgery 01/06/2017 12/07/2017 Astigmatism of eye 10/05/2016 10/11/2016 Combined forms of age-related cataract, right ey e 10/05/2016 01/21/2020 Essential thrombocytosis 05/11/2016 021 Overview: History: Home med: hydroxyurea (alternates 500 mg and 1000 mg every other day), plavix 75 mg daily (stopped 01/08/17) and aspirin 81 mg daily. Established with Dr. Melara ([facility]) Preop platelet was 406 (01/06/17) Assessment: No signs of bleeding ; platelets today 403 Plan: -monitor CBC -monitor for signs of bleeding -per Dr. Santana who spoke with neuro; no longer needs to take the Plavix. . Type 2 diabetes mellitus wit h diabetic neuropathy, without long-term current use of insulin 12/05/2020 documented as of this encounter (statuses as of 05/18/2022) [facility]04-24-2018 History of Past illness Narrative* Problem Noted Date Resolved Date Type 2 diabetes mellitus without retinopathy 01/21/2020 Neuroendocrine tumor 01/07/2017 12/05/2020 Overview: History: 66 year old remote smoker with DM2, TIA, HTN, thrombocytosis, sleep apnea and morbid obesity (BMI 50), found to have a left lower lung nodule, which was biopsied 10/28/16 (OSH), revealing carcinoid tumor. PET scan 12/15/16 showed the 2.5 x 2.3 cm nodule in the left lower lobe to have increased FDG uptake (max SUV 7). It was felt due to her comorbidities, that a limited resection was indicated, so on 01/07/17, Dr. Santana performed a VATS left lower lung wedge resection. Assessment: hemodynamically stable Plan: -Diet: regular diet -Activity:ambulate 3-4 times a day -cough, deep breath, up and ambulate, use of coronet - desat study today (does require home O2) on RA at rest SpO2 86 % required 4L NC for SpO2 > 88%, with exertion required 6L NC to maintain SPO2 > 88%. - per Dr. Santana who spoke with Neuro patient no longer needs Plavix. . DISPOSITION AND FOLLOW-UP 01/07/20172016 Overview: History: and lives in [place], [place]. Admitted 01/07/17 for VATs lung wedge Assessment: discharge to home today given we can get her home O2 set up. Plan: - Discuss needs with patient and collaborate with case management - Will continue to evaluate during hospital admission. - d/c home today with home oxygen, follow up in 7-10 days with chest xray. Check oxygen requirements at follow up - keep hematology follow up that is scheduled in February. . Mechanical venous thromboembolism (VTE) prophyla xis in place 01/07/2017 01/09/2017 Overview: History: No history of DVT in the past. Now s/p VATS lung wedge 01/07/17 Assessment: High risk for DVT due to recent surgery and obesity. No leg pain, swelling or warmth on Lovenox 40mg daily subcutaneously and GABY hose. Plan: - Continue current regimen while in hospital - Encourage continued ambulation (at least TID) . Pain, postoperative, acute 01/07/201701/20 Overview: History: Status post: VATS lung wedge 01/07/17. Assessment: Current regimen: oxycodone 5-10 mg every 4 hours prn, tylenol 650 mg q6H prn. And ibuprofen 400 mg every 6 hours as needed Plan: - continue oxycodone, tylenol and ibuprofen. - Continue to re-assess pain control. - bowel regimen: dulc suppository, milk of mag prn, and daily Miralax . Encounter for preoperative a nesthesiology assessment for thoracic surgery 01/06/2017 12/07/2017 Astigmatism of eye 10/05/2016 10/11/2016 Combined forms of age-related cataract, right ey e 10/05/2016 01/21/2020 Essential thrombocytosis 05/11/2016 021 Overview: History: Home med: hydroxyurea (alternates 500 mg and 1000 mg every other day), plavix 75 mg daily (stopped 01/08/17) and aspirin 81 mg daily. Established with Dr. Melara ([facility]) Preop platelet was 406 (01/06/17) Assessment: No signs of bleeding ; platelets today 403 Plan: -monitor CBC -monitor for signs of bleeding -per Dr. Santana who spoke with neuro; no longer needs to take the Plavix. . Type 2 diabetes mellitus wit h diabetic neuropathy, without long-term current use of insulin 12/05/2020 documented as of this encounter (statuses as of 05/18/2022) [facility]04-24-2018 History of Past illness Narrative* Problem Noted Date Resolved Date Type 2 diabetes mellitus without retinopathy 01/21/2020 Neuroendocrine tumor 01/07/2017 12/05/2020 Overview: History: 66 year old remote smoker with DM2, TIA, HTN, thrombocytosis, sleep apnea and morbid obesity (BMI 50), found to have a left lower lung nodule, which was biopsied 10/28/16 (OS[facility]), revealing carcinoid tumor. PET scan 12/15/16 showed the 2.5 x 2.3 cm nodule in the left lower lobe to have increased FDG uptake (max SUV 7). It was felt due to her comorbidities, that a limited resection was indicated, so on 01/07/17, Dr. Santana performed a VATS left lower lung wedge resection. Assessment: hemodynamically stable Plan: -Diet: regular diet -Activity:ambulate 3-4 times a day -cough, deep breath, up and ambulate, use of coronet - desat study today (does require home O2) on RA at rest SpO2 86 % required 4L NC for SpO2 > 88%, with exertion required 6L NC to maintain SPO2 > 88%. - per Dr. Santana who spoke with Neuro patient no longer needs Plavix. . DISPOSITION AND FOLLOW-UP 01/07/20172016 Overview: History: and lives in [place], [place]. Admitted 01/07/17 for VATs lung wedge Assessment: discharge to home today given we can get her home O2 set up. Plan: - Discuss needs with patient and collaborate with case management - Will continue to evaluate during hospital admission. - d/c home today with home oxygen, follow up in 7-10 days with chest xray. Check oxygen requirements at follow up - keep hematology follow up that is scheduled in February. . Mechanical venous thromboembolism (VTE) prophyla xis in place 01/07/2017 01/09/2017 Overview: History: No history of DVT in the past. Now s/p VATS lung wedge 01/07/17 Assessment: High risk for DVT due to recent surgery and obesity. No leg pain, swelling or warmth on Lovenox 40mg daily subcutaneously and GABY hose. Plan: - Continue current regimen while in hospital - Encourage continued ambulation (at least TID) . Pain, postoperative, acute 01/07/201701/20 Overview: History: Status post: VATS lung wedge 01/07/17. Assessment: Current regimen: oxycodone 5-10 mg every 4 hours prn, tylenol 650 mg q6H prn. And ibuprofen 400 mg every 6 hours as needed Plan: - continue oxycodone, tylenol and ibuprofen. - Continue to re-assess pain control. - bowel regimen: dulc suppository, milk of mag prn, and daily Miralax . Encounter for preoperative a nesthesiology assessment for thoracic surgery 01/06/2017 12/07/2017 Astigmatism of eye 10/05/2016 10/11/2016 Combined forms of age-related cataract, right ey e 10/05/2016 01/21/2020 Essential thrombocytosis 05/11/201612/05/ 021 Overview: History: Home med: hydroxyurea (alternates 500 mg and 1000 mg every other day), plavix 75 mg daily (stopped 01/08/17) and aspirin 81 mg daily. Established with Dr. Melara ([facility]) Preop platelet was 406 (01/06/17) Assessment: No signs of bleeding ; platelets today 403 Plan: -monitor CBC -monitor for signs of bleeding -per Dr. Santana who spoke with neuro; no longer needs to take the Plavix. . Type 2 diabetes mellitus wit h diabetic neuropathy, without long-term current use of insulin 12/05/2020 documented as of this encounter (statuses as of 06/14/2022) [facility]04-24-2018 History of Past illness Narrative* Problem Noted Date Resolved Date Type 2 diabetes mellitus without retinopathy 01/21/2020 Neuroendocrine tumor 01/07/2017 12/05/2020 Overview: History: 66 year old remote smoker with DM2, TIA, HTN, thrombocytosis, sleep apnea and morbid obesity (BMI 50), found to have a left lower lung nodule, which was biopsied 10/28/16 (OS[facility]), revealing carcinoid tumor. PET scan 12/15/16 showed the 2.5 x 2.3 cm nodule in the left lower lobe to have increased FDG uptake (max SUV 7). It was felt due to her comorbidities, that a limited resection was indicated, so on 01/07/17, Dr. Santana performed a VATS left lower lung wedge resection. Assessment: hemodynamically stable Plan: -Diet: regular diet -Activity:ambulate 3-4 times a day -cough, deep breath, up and ambulate, use of coronet - desat study today (does require home O2) on RA at rest SpO2 86 % required 4L NC for SpO2 > 88%, with exertion required 6L NC to maintain SPO2 > 88%. - per Dr. Santana who spoke with Neuro patient no longer needs Plavix. . DISPOSITION AND FOLLOW-UP 01/07/20172016 Overview: History: and lives in [place], [place]. Admitted 01/07/17 for VATs lung wedge Assessment: discharge to home today given we can get her home O2 set up. Plan: - Discuss needs with patient and collaborate with case management - Will continue to evaluate during hospital admission. - d/c home today with home oxygen, follow up in 7-10 days with chest xray. Check oxygen requirements at follow up - keep hematology follow up that is scheduled in February. . Mechanical venous thromboembolism (VTE) prophyla xis in place 01/07/2017 01/09/2017 Overview: History: No history of DVT in the past. Now s/p VATS lung wedge 01/07/17 Assessment: High risk for DVT due to recent surgery and obesity. No leg pain, swelling or warmth on Lovenox 40mg daily subcutaneously and GABY hose. Plan: - Continue current regimen while in hospital - Encourage continued ambulation (at least TID) . Pain, postoperative, acute 01/07/201701/20 Overview: History: Status post: VATS lung wedge 01/07/17. Assessment: Current regimen: oxycodone 5-10 mg every 4 hours prn, tylenol 650 mg q6H prn. And ibuprofen 400 mg every 6 hours as needed Plan: - continue oxycodone, tylenol and ibuprofen. - Continue to re-assess pain control. - bowel regimen: dulc suppository, milk of mag prn, and daily Miralax . Encounter for preoperative a nesthesiology assessment for thoracic surgery 01/06/2017 12/07/2017 Astigmatism of eye 10/05/2016 10/11/2016 Combined forms of age-related cataract, right ey e 10/05/2016 01/21/2020 Essential thrombocytosis 05/11/2016 021 Overview: History: Home med: hydroxyurea (alternates 500 mg and 1000 mg every other day), plavix 75 mg daily (stopped 01/08/17) and aspirin 81 mg daily. Established with Dr. Melara ([facility]) Preop platelet was 406 (01/06/17) Assessment: No signs of bleeding ; platelets today 403 Plan: -monitor CBC -monitor for signs of bleeding -per Dr. Santana who spoke with neuro; no longer needs to take the Plavix. . Type 2 diabetes mellitus wit h diabetic neuropathy, without long-term current use of insulin 12/05/2020 documented as of this encounter (statuses as of 06/14/2022) [facility]04-24-2018 History of Past illness Narrative* Problem Noted Date Resolved Date Type 2 diabetes mellitus without retinopathy 01/21/2020 Neuroendocrine tumor 01/07/2017 12/05/2020 Overview: History: 66 year old remote smoker with DM2, TIA, HTN, thrombocytosis, sleep apnea and morbid obesity (BMI 50), found to have a left lower lung nodule, which was biopsied 10/28/16 ([facility]), revealing carcinoid tumor. PET scan 12/15/16 showed the 2.5 x 2.3 cm nodule in the left lower lobe to have increased FDG uptake (max SUV 7). It was felt due to her comorbidities, that a limited resection was indicated, so on 01/07/17, Dr. Santana performed a VATS left lower lung wedge resection. Assessment: hemodynamically stable Plan: -Diet: regular diet -Activity:ambulate 3-4 times a day -cough, deep breath, up and ambulate, use of coronet - desat study today (does require home O2) on RA at rest SpO2 86 % required 4L NC for SpO2 > 88%, with exertion required 6L NC to maintain SPO2 > 88%. - per Dr. Santana who spoke with Neuro patient no longer needs Plavix. . DISPOSITION AND FOLLOW-UP 01/07/20172016 Overview: History: and lives in [place], [place]. Admitted 01/07/17 for VATs lung wedge Assessment: discharge to home today given we can get her home O2 set up. Plan: - Discuss needs with patient and collaborate with case management - Will continue to evaluate during hospital admission. - d/c home today with home oxygen, follow up in 7-10 days with chest xray. Check oxygen requirements at follow up - keep hematology follow up that is scheduled in February. . Mechanical venous thromboembolism (VTE) prophyla xis in place 01/07/2017 01/09/2017 Overview: History: No history of DVT in the past. Now s/p VATS lung wedge 01/07/17 Assessment: High risk for DVT due to recent surgery and obesity. No leg pain, swelling or warmth on Lovenox 40mg daily subcutaneously and GABY hose. Plan: - Continue current regimen while in hospital - Encourage continued ambulation (at least TID) . Pain, postoperative, acute 01/07/201701/20 Overview: History: Status post: VATS lung wedge 01/07/17. Assessment: Current regimen: oxycodone 5-10 mg every 4 hours prn, tylenol 650 mg q6H prn. And ibuprofen 400 mg every 6 hours as needed Plan: - continue oxycodone, tylenol and ibuprofen. - Continue to re-assess pain control. - bowel regimen: dulc suppository, milk of mag prn, and daily Miralax . Encounter for preoperative a nesthesiology assessment for thoracic surgery 01/06/2017 12/07/2017 Astigmatism of eye 10/05/2016 10/11/2016 Combined forms of age-related cataract, right ey e 10/05/2016 01/21/2020 Essential thrombocytosis 05/11/2016 021 Overview: History: Home med: hydroxyurea (alternates 500 mg and 1000 mg every other day), plavix 75 mg daily (stopped 01/08/17) and aspirin 81 mg daily. Established with Dr. Melara ([facility]) Preop platelet was 406 (01/06/17) Assessment: No signs of bleeding ; platelets today 403 Plan: -monitor CBC -monitor for signs of bleeding -per Dr. Santana who spoke with neuro; no longer needs to take the Plavix. . Type 2 diabetes mellitus wit h diabetic neuropathy, without long-term current use of insulin 12/05/2020 documented as of this encounter (statuses as of 07/06/2022) [facility]04-[facility]-2018 History of Past illness Narrative* Problem Noted Date Resolved Date Type 2 diabetes mellitus without retinopathy 01/21/2020 Neuroendocrine tumor 01/07/2017 12/05/2020 Overview: History: 66 year old remote smoker with DM2, TIA, HTN, thrombocytosis, sleep apnea and morbid obesity (BMI 50), found to have a left lower lung nodule, which was biopsied 10/28/16 (OS[facility]), revealing carcinoid tumor. PET scan 12/15/16 showed the 2.5 x 2.3 cm nodule in the left lower lobe to have increased FDG uptake (max SUV 7). It was felt due to her comorbidities, that a limited resection was indicated, so on 01/07/17, Dr. Santana performed a VATS left lower lung wedge resection. Assessment: hemodynamically stable Plan: -Diet: regular diet -Activity:ambulate 3-4 times a day -cough, deep breath, up and ambulate, use of coronet - desat study today (does require home O2) on RA at rest SpO2 86 % required 4L NC for SpO2 > 88%, with exertion required 6L NC to maintain SPO2 > 88%. - per Dr. Santana who spoke with Neuro patient no longer needs Plavix. . DISPOSITION AND FOLLOW-UP 01/07/20172016 Overview: History: and lives in [place], [place]. Admitted 01/07/17 for VATs lung wedge Assessment: discharge to home today given we can get her home O2 set up. Plan: - Discuss needs with patient and collaborate with case management - Will continue to evaluate during hospital admission. - d/c home today with home oxygen, follow up in 7-10 days with chest xray. Check oxygen requirements at follow up - keep hematology follow up that is scheduled in February. . Mechanical venous thromboembolism (VTE) prophyla xis in place 01/07/2017 01/09/2017 Overview: History: No history of DVT in the past. Now s/p VATS lung wedge 01/07/17 Assessment: High risk for DVT due to recent surgery and obesity. No leg pain, swelling or warmth on Lovenox 40mg daily subcutaneously and GABY hose. Plan: - Continue current regimen while in hospital - Encourage continued ambulation (at least TID) . Pain, postoperative, acute 01/07/201701/20 Overview: History: Status post: VATS lung wedge 01/07/17. Assessment: Current regimen: oxycodone 5-10 mg every 4 hours prn, tylenol 650 mg q6H prn. And ibuprofen 400 mg every 6 hours as needed Plan: - continue oxycodone, tylenol and ibuprofen. - Continue to re-assess pain control. - bowel regimen: dulc suppository, milk of mag prn, and daily Miralax . Encounter for preoperative a nesthesiology assessment for thoracic surgery 01/06/2017 12/07/2017 Astigmatism of eye 10/05/2016 10/11/2016 Combined forms of age-related cataract, right ey e 10/05/2016 01/21/2020 Essential thrombocytosis 05/11/2016 021 Overview: History: Home med: hydroxyurea (alternates 500 mg and 1000 mg every other day), plavix 75 mg daily (stopped 01/08/17) and aspirin 81 mg daily. Established with Dr. Melara ([facility]) Preop platelet was 406 (01/06/17) Assessment: No signs of bleeding ; platelets today 403 Plan: -monitor CBC -monitor for signs of bleeding -per Dr. Santana who spoke with neuro; no longer needs to take the Plavix. . Type 2 diabetes mellitus wit h diabetic neuropathy, without long-term current use of insulin 12/05/2020 documented as of this encounter (statuses as of 07/07/2022) [facility]04[facility]-2018 History of Past illness Narrative* Problem Noted Date Resolved Date Type 2 diabetes mellitus without retinopathy 01/21/2020 Neuroendocrine tumor 01/07/2017 12/05/2020 Overview: History: 66 year old remote smoker with DM2, TIA, HTN, thrombocytosis, sleep apnea and morbid obesity (BMI 50), found to have a left lower lung nodule, which was biopsied 10/28/16 ([facility]), revealing carcinoid tumor. PET scan 12/15/16 showed the 2.5 x 2.3 cm nodule in the left lower lobe to have increased FDG uptake (max SUV 7). It was felt due to her comorbidities, that a limited resection was indicated, so on 01/07/17, Dr. Santana performed a VATS left lower lung wedge resection. Assessment: hemodynamically stable Plan: -Diet: regular diet -Activity:ambulate 3-4 times a day -cough, deep breath, up and ambulate, use of coronet - desat study today (does require home O2) on RA at rest SpO2 86 % required 4L NC for SpO2 > 88%, with exertion required 6L NC to maintain SPO2 > 88%. - per Dr. Santana who spoke with Neuro patient no longer needs Plavix. . DISPOSITION AND FOLLOW-UP 01/07/20172016 Overview: History: and lives in [place], [place]. Admitted 01/07/17 for VATs lung wedge Assessment: discharge to home today given we can get her home O2 set up. Plan: - Discuss needs with patient and collaborate with case management - Will continue to evaluate during hospital admission. - d/c home today with home oxygen, follow up in 7-10 days with chest xray. Check oxygen requirements at follow up - keep hematology follow up that is scheduled in February. . Mechanical venous thromboembolism (VTE) prophyla xis in place 01/07/2017 01/09/2017 Overview: History: No history of DVT in the past. Now s/p VATS lung wedge 01/07/17 Assessment: High risk for DVT due to recent surgery and obesity. No leg pain, swelling or warmth on Lovenox 40mg daily subcutaneously and GABY hose. Plan: - Continue current regimen while in hospital - Encourage continued ambulation (at least TID) . Pain, postoperative, acute 01/07/201701/20 Overview: History: Status post: VATS lung wedge 01/07/17. Assessment: Current regimen: oxycodone 5-10 mg every 4 hours prn, tylenol 650 mg q6H prn. And ibuprofen 400 mg every 6 hours as needed Plan: - continue oxycodone, tylenol and ibuprofen. - Continue to re-assess pain control. - bowel regimen: dulc suppository, milk of mag prn, and daily Miralax . Encounter for preoperative a nesthesiology assessment for thoracic surgery 01/06/2017 12/07/2017 Astigmatism of eye 10/05/2016 10/11/2016 Combined forms of age-related cataract, right ey e 10/05/2016 01/21/2020 Essential thrombocytosis 05/11/2016 021 Overview: History: Home med: hydroxyurea (alternates 500 mg and 1000 mg every other day), plavix 75 mg daily (stopped 01/08/17) and aspirin 81 mg daily. Established with Dr. Melara ([facility]) Preop platelet was 406 (01/06/17) Assessment: No signs of bleeding ; platelets today 403 Plan: -monitor CBC -monitor for signs of bleeding -per Dr. Santana who spoke with neuro; no longer needs to take the Plavix. . Type 2 diabetes mellitus wit h diabetic neuropathy, without long-term current use of insulin 12/05/2020 documented as of this encounter (statuses as of 07/19/2022) [facility] History of Past illness Narrative* Problem Noted Date Resolved Date Type 2 diabetes mellitus without retinopathy 01/21/2020 Neuroendocrine tumor 01/07/2017 12/05/2020 Overview: History: 66 year old remote smoker with DM2, TIA, HTN, thrombocytosis, sleep apnea and morbid obesity (BMI 50), found to have a left lower lung nodule, which was biopsied 10/28/16 (OS[facility]), revealing carcinoid tumor. PET scan 12/15/16 showed the 2.5 x 2.3 cm nodule in the left lower lobe to have increased FDG uptake (max SUV 7). It was felt due to her comorbidities, that a limited resection was indicated, so on 01/07/17, Dr. Santana performed a VATS left lower lung wedge resection. Assessment: hemodynamically stable Plan: -Diet: regular diet -Activity:ambulate 3-4 times a day -cough, deep breath, up and ambulate, use of coronet - desat study today (does require home O2) on RA at rest SpO2 86 % required 4L NC for SpO2 > 88%, with exertion required 6L NC to maintain SPO2 > 88%. - per Dr. Santana who spoke with Neuro patient no longer needs Plavix. . DISPOSITION AND FOLLOW-UP 01/07/20172016 Overview: History: and lives in [place], [place]. Admitted 01/07/17 for VATs lung wedge Assessment: discharge to home today given we can get her home O2 set up. Plan: - Discuss needs with patient and collaborate with case management - Will continue to evaluate during hospital admission. - d/c home today with home oxygen, follow up in 7-10 days with chest xray. Check oxygen requirements at follow up - keep hematology follow up that is scheduled in February. . Mechanical venous thromboembolism (VTE) prophyla xis in place 01/07/2017 01/09/2017 Overview: History: No history of DVT in the past. Now s/p VATS lung wedge 01/07/17 Assessment: High risk for DVT due to recent surgery and obesity. No leg pain, swelling or warmth on Lovenox 40mg daily subcutaneously and GABY hose. Plan: - Continue current regimen while in hospital - Encourage continued ambulation (at least TID) . Pain, postoperative, acute 01/07/201701/20 Overview: History: Status post: VATS lung wedge 01/07/17. Assessment: Current regimen: oxycodone 5-10 mg every 4 hours prn, tylenol 650 mg q6H prn. And ibuprofen 400 mg every 6 hours as needed Plan: - continue oxycodone, tylenol and ibuprofen. - Continue to re-assess pain control. - bowel regimen: dulc suppository, milk of mag prn, and daily Miralax . Encounter for preoperative a nesthesiology assessment for thoracic surgery 01/06/2017 12/07/2017 Astigmatism of eye 10/05/2016 10/11/2016 Combined forms of age-related cataract, right ey e 10/05/2016 01/21/2020 Essential thrombocytosis 05/11/2016 021 Overview: History: Home med: hydroxyurea (alternates 500 mg and 1000 mg every other day), plavix 75 mg daily (stopped 01/08/17) and aspirin 81 mg daily. Established with Dr. Melara ([facility]) Preop platelet was 406 (01/06/17) Assessment: No signs of bleeding ; platelets today 403 Plan: -monitor CBC -monitor for signs of bleeding -per Dr. Santana who spoke with neuro; no longer needs to take the Plavix. . Type 2 diabetes mellitus wit h diabetic neuropathy, without long-term current use of insulin 12/05/2020 documented as of this encounter (statuses as of 07/21/2022) [facility] History of Past illness Narrative* Problem Noted Date Resolved Date Type 2 diabetes mellitus without retinopathy 01/21/2020 Neuroendocrine tumor 01/07/2017 12/05/2020 Overview: History: 66 year old remote smoker with DM2, TIA, HTN, thrombocytosis, sleep apnea and morbid obesity (BMI 50), found to have a left lower lung nodule, which was biopsied 10/28/16 (OSH), revealing carcinoid tumor. PET scan 12/15/16 showed the 2.5 x 2.3 cm nodule in the left lower lobe to have increased FDG uptake (max SUV 7). It was felt due to her comorbidities, that a limited resection was indicated, so on 01/07/17, Dr. Santana performed a VATS left lower lung wedge resection. Assessment: hemodynamically stable Plan: -Diet: regular diet -Activity:ambulate 3-4 times a day -cough, deep breath, up and ambulate, use of coronet - desat study today (does require home O2) on RA at rest SpO2 86 % required 4L NC for SpO2 > 88%, with exertion required 6L NC to maintain SPO2 > 88%. - per Dr. Santana who spoke with Neuro patient no longer needs Plavix. . DISPOSITION AND FOLLOW-UP 01/07/20172016 Overview: History: and lives in [place], [place]. Admitted 01/07/17 for VATs lung wedge Assessment: discharge to home today given we can get her home O2 set up. Plan: - Discuss needs with patient and collaborate with case management - Will continue to evaluate during hospital admission. - d/c home today with home oxygen, follow up in 7-10 days with chest xray. Check oxygen requirements at follow up - keep hematology follow up that is scheduled in February. . Mechanical venous thromboembolism (VTE) prophyla xis in place 01/07/2017 01/09/2017 Overview: History: No history of DVT in the past. Now s/p VATS lung wedge 01/07/17 Assessment: High risk for DVT due to recent surgery and obesity. No leg pain, swelling or warmth on Lovenox 40mg daily subcutaneously and GABY hose. Plan: - Continue current regimen while in hospital - Encourage continued ambulation (at least TID) . Pain, postoperative, acute 01/07/201701/20 Overview: History: Status post: VATS lung wedge 01/07/17. Assessment: Current regimen: oxycodone 5-10 mg every 4 hours prn, tylenol 650 mg q6H prn. And ibuprofen 400 mg every 6 hours as needed Plan: - continue oxycodone, tylenol and ibuprofen. - Continue to re-assess pain control. - bowel regimen: dulc suppository, milk of mag prn, and daily Miralax . Encounter for preoperative a nesthesiology assessment for thoracic surgery 01/06/2017 12/07/2017 Astigmatism of eye 10/05/2016 10/11/2016 Combined forms of age-related cataract, right ey e 10/05/2016 01/21/2020 Essential thrombocytosis 05/11/2016 021 Overview: History: Home med: hydroxyurea (alternates 500 mg and 1000 mg every other day), plavix 75 mg daily (stopped 01/08/17) and aspirin 81 mg daily. Established with Dr. Melara ([facility]) Preop platelet was 406 (01/06/17) Assessment: No signs of bleeding ; platelets today 403 Plan: -monitor CBC -monitor for signs of bleeding -per Dr. Santana who spoke with neuro; no longer needs to take the Plavix. . Type 2 diabetes mellitus wit h diabetic neuropathy, without long-term current use of insulin 12/05/2020 documented as of this encounter (statuses as of 07/21/2022) [facility]04-24-2018 History of Past illness Narrative* Problem Noted Date Resolved Date Type 2 diabetes mellitus without retinopathy 01/21/2020 Neuroendocrine tumor 01/07/2017 12/05/2020 Overview: History: 66 year old remote smoker with DM2, TIA, HTN, thrombocytosis, sleep apnea and morbid obesity (BMI 50), found to have a left lower lung nodule, which was biopsied 10/28/16 (OSH), revealing carcinoid tumor. PET scan 12/15/16 showed the 2.5 x 2.3 cm nodule in the left lower lobe to have increased FDG uptake (max SUV 7). It was felt due to her comorbidities, that a limited resection was indicated, so on 01/07/17, Dr. Santana performed a VATS left lower lung wedge resection. Assessment: hemodynamically stable Plan: -Diet: regular diet -Activity:ambulate 3-4 times a day -cough, deep breath, up and ambulate, use of coronet - desat study today (does require home O2) on RA at rest SpO2 86 % required 4L NC for SpO2 > 88%, with exertion required 6L NC to maintain SPO2 > 88%. - per Dr. Santana who spoke with Neuro patient no longer needs Plavix. . DISPOSITION AND FOLLOW-UP 01/07/20172016 Overview: History: and lives in [place], [place]. Admitted 01/07/17 for VATs lung wedge Assessment: discharge to home today given we can get her home O2 set up. Plan: - Discuss needs with patient and collaborate with case management - Will continue to evaluate during hospital admission. - d/c home today with home oxygen, follow up in 7-10 days with chest xray. Check oxygen requirements at follow up - keep hematology follow up that is scheduled in February. . Mechanical venous thromboembolism (VTE) prophyla xis in place 01/07/2017 01/09/2017 Overview: History: No history of DVT in the past. Now s/p VATS lung wedge 01/07/17 Assessment: High risk for DVT due to recent surgery and obesity. No leg pain, swelling or warmth on Lovenox 40mg daily subcutaneously and GABY hose. Plan: - Continue current regimen while in hospital - Encourage continued ambulation (at least TID) . Pain, postoperative, acute 01/07/201701/20 Overview: History: Status post: VATS lung wedge 01/07/17. Assessment: Current regimen: oxycodone 5-10 mg every 4 hours prn, tylenol 650 mg q6H prn. And ibuprofen 400 mg every 6 hours as needed Plan: - continue oxycodone, tylenol and ibuprofen. - Continue to re-assess pain control. - bowel regimen: dulc suppository, milk of mag prn, and daily Miralax . Encounter for preoperative a nesthesiology assessment for thoracic surgery 01/06/2017 12/07/2017 Astigmatism of eye 10/05/2016 10/11/2016 Combined forms of age-related cataract, right ey e 10/05/2016 01/21/2020 Essential thrombocytosis 05/11/2016 021 Overview: History: Home med: hydroxyurea (alternates 500 mg and 1000 mg every other day), plavix 75 mg daily (stopped 01/08/17) and aspirin 81 mg daily. Established with Dr. Melara ([facility]) Preop platelet was 406 (01/06/17) Assessment: No signs of bleeding ; platelets today 403 Plan: -monitor CBC -monitor for signs of bleeding -per Dr. Santana who spoke with neuro; no longer needs to take the Plavix. . Type 2 diabetes mellitus wit h diabetic neuropathy, without long-term current use of insulin 12/05/2020 documented as of this encounter (statuses as of 07/23/2022) [facility]04-24-2018 History of Past illness Narrative* Problem Noted Date Resolved Date Type 2 diabetes mellitus without retinopathy 01/21/2020 Neuroendocrine tumor 01/07/2017 12/05/2020 Overview: History: 66 year old remote smoker with DM2, TIA, HTN, thrombocytosis, sleep apnea and morbid obesity (BMI 50), found to have a left lower lung nodule, which was biopsied 10/28/16 ([facility]), revealing carcinoid tumor. PET scan 12/15/16 showed the 2.5 x 2.3 cm nodule in the left lower lobe to have increased FDG uptake (max SUV 7). It was felt due to her comorbidities, that a limited resection was indicated, so on 01/07/17, Dr. Santana performed a VATS left lower lung wedge resection. Assessment: hemodynamically stable Plan: -Diet: regular diet -Activity:ambulate 3-4 times a day -cough, deep breath, up and ambulate, use of coronet - desat study today (does require home O2) on RA at rest SpO2 86 % required 4L NC for SpO2 > 88%, with exertion required 6L NC to maintain SPO2 > 88%. - per Dr. Santana who spoke with Neuro patient no longer needs Plavix. . DISPOSITION AND FOLLOW-UP 01/07/20172016 Overview: History: and lives in [place], [place]. Admitted 01/07/17 for VATs lung wedge Assessment: discharge to home today given we can get her home O2 set up. Plan: - Discuss needs with patient and collaborate with case management - Will continue to evaluate during hospital admission. - d/c home today with home oxygen, follow up in 7-10 days with chest xray. Check oxygen requirements at follow up - keep hematology follow up that is scheduled in February. . Mechanical venous thromboembolism (VTE) prophyla xis in place 01/07/2017 01/09/2017 Overview: History: No history of DVT in the past. Now s/p VATS lung wedge 01/07/17 Assessment: High risk for DVT due to recent surgery and obesity. No leg pain, swelling or warmth on Lovenox 40mg daily subcutaneously and GABY hose. Plan: - Continue current regimen while in hospital - Encourage continued ambulation (at least TID) . Pain, postoperative, acute 01/07/201701/20 Overview: History: Status post: VATS lung wedge 01/07/17. Assessment: Current regimen: oxycodone 5-10 mg every 4 hours prn, tylenol 650 mg q6H prn. And ibuprofen 400 mg every 6 hours as needed Plan: - continue oxycodone, tylenol and ibuprofen. - Continue to re-assess pain control. - bowel regimen: dulc suppository, milk of mag prn, and daily Miralax . Encounter for preoperative a nesthesiology assessment for thoracic surgery 01/06/2017 12/07/2017 Astigmatism of eye 10/05/2016 10/11/2016 Combined forms of age-related cataract, right ey e 10/05/2016 01/21/2020 Essential thrombocytosis 05/11/2016 021 Overview: History: Home med: hydroxyurea (alternates 500 mg and 1000 mg every other day), plavix 75 mg daily (stopped 01/08/17) and aspirin 81 mg daily. Established with Dr. Melara ([facility]) Preop platelet was 406 (01/06/17) Assessment: No signs of bleeding ; platelets today 403 Plan: -monitor CBC -monitor for signs of bleeding -per Dr. Santana who spoke with neuro; no longer needs to take the Plavix. . Type 2 diabetes mellitus wit h diabetic neuropathy, without long-term current use of insulin 12/05/2020 documented as of this encounter (statuses as of 07/30/2022) [facility]04-[facility]-2018 History of Past illness Narrative* Problem Noted Date Resolved Date Type 2 diabetes mellitus without retinopathy 01/21/2020 Neuroendocrine tumor 01/07/2017 12/05/2020 Overview: History: 66 year old remote smoker with DM2, TIA, HTN, thrombocytosis, sleep apnea and morbid obesity (BMI 50), found to have a left lower lung nodule, which was biopsied 10/28/16 ([facility]), revealing carcinoid tumor. PET scan 12/15/16 showed the 2.5 x 2.3 cm nodule in the left lower lobe to have increased FDG uptake (max SUV 7). It was felt due to her comorbidities, that a limited resection was indicated, so on 01/07/17, Dr. Santana performed a VATS left lower lung wedge resection. Assessment: hemodynamically stable Plan: -Diet: regular diet -Activity:ambulate 3-4 times a day -cough, deep breath, up and ambulate, use of coronet - desat study today (does require home O2) on RA at rest SpO2 86 % required 4L NC for SpO2 > 88%, with exertion required 6L NC to maintain SPO2 > 88%. - per Dr. Santana who spoke with Neuro patient no longer needs Plavix. . DISPOSITION AND FOLLOW-UP 01/07/20172016 Overview: History: and lives in [place], [place]. Admitted 01/07/17 for VATs lung wedge Assessment: discharge to home today given we can get her home O2 set up. Plan: - Discuss needs with patient and collaborate with case management - Will continue to evaluate during hospital admission. - d/c home today with home oxygen, follow up in 7-10 days with chest xray. Check oxygen requirements at follow up - keep hematology follow up that is scheduled in February. . Mechanical venous thromboembolism (VTE) prophyla xis in place 01/07/2017 01/09/2017 Overview: History: No history of DVT in the past. Now s/p VATS lung wedge 01/07/17 Assessment: High risk for DVT due to recent surgery and obesity. No leg pain, swelling or warmth on Lovenox 40mg daily subcutaneously and GABY hose. Plan: - Continue current regimen while in hospital - Encourage continued ambulation (at least TID) . Pain, postoperative, acute 01/07/201701/20 Overview: History: Status post: VATS lung wedge 01/07/17. Assessment: Current regimen: oxycodone 5-10 mg every 4 hours prn, tylenol 650 mg q6H prn. And ibuprofen 400 mg every 6 hours as needed Plan: - continue oxycodone, tylenol and ibuprofen. - Continue to re-assess pain control. - bowel regimen: dulc suppository, milk of mag prn, and daily Miralax . Encounter for preoperative a nesthesiology assessment for thoracic surgery 01/06/2017 12/07/2017 Astigmatism of eye 10/05/2016 10/11/2016 Combined forms of age-related cataract, right ey e 10/05/2016 01/21/2020 Essential thrombocytosis 05/11/2016 021 Overview: History: Home med: hydroxyurea (alternates 500 mg and 1000 mg every other day), plavix 75 mg daily (stopped 01/08/17) and aspirin 81 mg daily. Established with Dr. Melara ([facility]) Preop platelet was 406 (01/06/17) Assessment: No signs of bleeding ; platelets today 403 Plan: -monitor CBC -monitor for signs of bleeding -per Dr. Santana who spoke with neuro; no longer needs to take the Plavix. . Type 2 diabetes mellitus wit h diabetic neuropathy, without long-term current use of insulin 12/05/2020 documented as of this encounter (statuses as of 08/21/2022) [facility]04-[facility]-2018 History of Past illness Narrative* Problem Noted Date Resolved Date Type 2 diabetes mellitus without retinopathy 01/21/2020 Neuroendocrine tumor 01/07/2017 12/05/2020 Overview: History: 66 year old remote smoker with DM2, TIA, HTN, thrombocytosis, sleep apnea and morbid obesity (BMI 50), found to have a left lower lung nodule, which was biopsied 10/28/16 ([facility]), revealing carcinoid tumor. PET scan 12/15/16 showed the 2.5 x 2.3 cm nodule in the left lower lobe to have increased FDG uptake (max SUV 7). It was felt due to her comorbidities, that a limited resection was indicated, so on 01/07/17, Dr. Santana performed a VATS left lower lung wedge resection. Assessment: hemodynamically stable Plan: -Diet: regular diet -Activity:ambulate 3-4 times a day -cough, deep breath, up and ambulate, use of coronet - desat study today (does require home O2) on RA at rest SpO2 86 % required 4L NC for SpO2 > 88%, with exertion required 6L NC to maintain SPO2 > 88%. - per Dr. Santana who spoke with Neuro patient no longer needs Plavix. . DISPOSITION AND FOLLOW-UP 01/07/20172016 Overview: History: and lives in [place], [place]. Admitted 01/07/17 for VATs lung wedge Assessment: discharge to home today given we can get her home O2 set up. Plan: - Discuss needs with patient and collaborate with case management - Will continue to evaluate during hospital admission. - d/c home today with home oxygen, follow up in 7-10 days with chest xray. Check oxygen requirements at follow up - keep hematology follow up that is scheduled in February. . Mechanical venous thromboembolism (VTE) prophyla xis in place 01/07/2017 01/09/2017 Overview: History: No history of DVT in the past. Now s/p VATS lung wedge 01/07/17 Assessment: High risk for DVT due to recent surgery and obesity. No leg pain, swelling or warmth on Lovenox 40mg daily subcutaneously and GABY hose. Plan: - Continue current regimen while in hospital - Encourage continued ambulation (at least TID) . Pain, postoperative, acute 01/07/201701/20 Overview: History: Status post: VATS lung wedge 01/07/17. Assessment: Current regimen: oxycodone 5-10 mg every 4 hours prn, tylenol 650 mg q6H prn. And ibuprofen 400 mg every 6 hours as needed Plan: - continue oxycodone, tylenol and ibuprofen. - Continue to re-assess pain control. - bowel regimen: dulc suppository, milk of mag prn, and daily Miralax . Encounter for preoperative a nesthesiology assessment for thoracic surgery 01/06/2017 12/07/2017 Astigmatism of eye 10/05/2016 10/11/2016 Combined forms of age-related cataract, right ey e 10/05/2016 01/21/2020 Essential thrombocytosis 05/11/2016 021 Overview: History: Home med: hydroxyurea (alternates 500 mg and 1000 mg every other day), plavix 75 mg daily (stopped 01/08/17) and aspirin 81 mg daily. Established with Dr. Melara ([facility]) Preop platelet was 406 (01/06/17) Assessment: No signs of bleeding ; platelets today 403 Plan: -monitor CBC -monitor for signs of bleeding -per Dr. Santana who spoke with neuro; no longer needs to take the Plavix. . Type 2 diabetes mellitus wit h diabetic neuropathy, without long-term current use of insulin 12/05/2020 documented as of this encounter (statuses as of 08/22/2022) [facility] History of Past illness Narrative* Problem Noted Date Resolved Date Type 2 diabetes mellitus without retinopathy 01/21/2020 Neuroendocrine tumor 01/07/2017 12/05/2020 Overview: History: 66 year old remote smoker with DM2, TIA, HTN, thrombocytosis, sleep apnea and morbid obesity (BMI 50), found to have a left lower lung nodule, which was biopsied 10/28/16 ([facility]), revealing carcinoid tumor. PET scan 12/15/16 showed the 2.5 x 2.3 cm nodule in the left lower lobe to have increased FDG uptake (max SUV 7). It was felt due to her comorbidities, that a limited resection was indicated, so on 01/07/17, Dr. Santana performed a VATS left lower lung wedge resection. Assessment: hemodynamically stable Plan: -Diet: regular diet -Activity:ambulate 3-4 times a day -cough, deep breath, up and ambulate, use of coronet - desat study today (does require home O2) on RA at rest SpO2 86 % required 4L NC for SpO2 > 88%, with exertion required 6L NC to maintain SPO2 > 88%. - per Dr. Santana who spoke with Neuro patient no longer needs Plavix. . DISPOSITION AND FOLLOW-UP 01/07/20172016 Overview: History: and lives in [place], [place]. Admitted 01/07/17 for VATs lung wedge Assessment: discharge to home today given we can get her home O2 set up. Plan: - Discuss needs with patient and collaborate with case management - Will continue to evaluate during hospital admission. - d/c home today with home oxygen, follow up in 7-10 days with chest xray. Check oxygen requirements at follow up - keep hematology follow up that is scheduled in February. . Mechanical venous thromboembolism (VTE) prophyla xis in place 01/07/2017 01/09/2017 Overview: History: No history of DVT in the past. Now s/p VATS lung wedge 01/07/17 Assessment: High risk for DVT due to recent surgery and obesity. No leg pain, swelling or warmth on Lovenox 40mg daily subcutaneously and GABY hose. Plan: - Continue current regimen while in hospital - Encourage continued ambulation (at least TID) . Pain, postoperative, acute 01/07/201701/20 Overview: History: Status post: VATS lung wedge 01/07/17. Assessment: Current regimen: oxycodone 5-10 mg every 4 hours prn, tylenol 650 mg q6H prn. And ibuprofen 400 mg every 6 hours as needed Plan: - continue oxycodone, tylenol and ibuprofen. - Continue to re-assess pain control. - bowel regimen: dulc suppository, milk of mag prn, and daily Miralax . Encounter for preoperative a nesthesiology assessment for thoracic surgery 01/06/2017 12/07/2017 Astigmatism of eye 10/05/2016 10/11/2016 Combined forms of age-related cataract, right ey e 10/05/2016 01/21/2020 Essential thrombocytosis 05/11/2016 021 Overview: History: Home med: hydroxyurea (alternates 500 mg and 1000 mg every other day), plavix 75 mg daily (stopped 01/08/17) and aspirin 81 mg daily. Established with Dr. Melara ([facility]) Preop platelet was 406 (01/06/17) Assessment: No signs of bleeding ; platelets today 403 Plan: -monitor CBC -monitor for signs of bleeding -per Dr. Santana who spoke with neuro; no longer needs to take the Plavix. . Type 2 diabetes mellitus wit h diabetic neuropathy, without long-term current use of insulin 12/05/2020 documented as of this encounter (statuses as of 10/27/2022) [facility] History of Past illness Narrative* Problem Noted Date Resolved Date Type 2 diabetes mellitus without retinopathy 01/21/2020 Neuroendocrine tumor 01/07/2017 12/05/2020 Overview: History: 66 year old remote smoker with DM2, TIA, HTN, thrombocytosis, sleep apnea and morbid obesity (BMI 50), found to have a left lower lung nodule, which was biopsied 10/28/16 ([facility]), revealing carcinoid tumor. PET scan 12/15/16 showed the 2.5 x 2.3 cm nodule in the left lower lobe to have increased FDG uptake (max SUV 7). It was felt due to her comorbidities, that a limited resection was indicated, so on 01/07/17, Dr. Santana performed a VATS left lower lung wedge resection. Assessment: hemodynamically stable Plan: -Diet: regular diet -Activity:ambulate 3-4 times a day -cough, deep breath, up and ambulate, use of coronet - desat study today (does require home O2) on RA at rest SpO2 86 % required 4L NC for SpO2 > 88%, with exertion required 6L NC to maintain SPO2 > 88%. - per Dr. Santana who spoke with Neuro patient no longer needs Plavix. . DISPOSITION AND FOLLOW-UP 01/07/20172016 Overview: History: and lives in [place], [place]. Admitted 01/07/17 for VATs lung wedge Assessment: discharge to home today given we can get her home O2 set up. Plan: - Discuss needs with patient and collaborate with case management - Will continue to evaluate during hospital admission. - d/c home today with home oxygen, follow up in 7-10 days with chest xray. Check oxygen requirements at follow up - keep hematology follow up that is scheduled in February. . Mechanical venous thromboembolism (VTE) prophyla xis in place 01/07/2017 01/09/2017 Overview: History: No history of DVT in the past. Now s/p VATS lung wedge 01/07/17 Assessment: High risk for DVT due to recent surgery and obesity. No leg pain, swelling or warmth on Lovenox 40mg daily subcutaneously and GABY hose. Plan: - Continue current regimen while in hospital - Encourage continued ambulation (at least TID) . Pain, postoperative, acute 01/07/201701/20 Overview: History: Status post: VATS lung wedge 01/07/17. Assessment: Current regimen: oxycodone 5-10 mg every 4 hours prn, tylenol 650 mg q6H prn. And ibuprofen 400 mg every 6 hours as needed Plan: - continue oxycodone, tylenol and ibuprofen. - Continue to re-assess pain control. - bowel regimen: dulc suppository, milk of mag prn, and daily Miralax . Encounter for preoperative a nesthesiology assessment for thoracic surgery 01/06/2017 12/07/2017 Astigmatism of eye 10/05/2016 10/11/2016 Combined forms of age-related cataract, right ey e 10/05/2016 01/21/2020 Essential thrombocytosis 05/11/2016 021 Overview: History: Home med: hydroxyurea (alternates 500 mg and 1000 mg every other day), plavix 75 mg daily (stopped 01/08/17) and aspirin 81 mg daily. Established with Dr. Melara ([facility]) Preop platelet was 406 (01/06/17) Assessment: No signs of bleeding ; platelets today 403 Plan: -monitor CBC -monitor for signs of bleeding -per Dr. Santana who spoke with neuro; no longer needs to take the Plavix. . Type 2 diabetes mellitus wit h diabetic neuropathy, without long-term current use of insulin 12/05/2020 documented as of this encounter (statuses as of 01/07/2023) [facility] History of Past illness Narrative* Problem Noted Date Resolved Date Type 2 diabetes mellitus without retinopathy 01/21/2020 Neuroendocrine tumor 01/07/2017 12/05/2020 Overview: History: 66 year old remote smoker with DM2, TIA, HTN, thrombocytosis, sleep apnea and morbid obesity (BMI 50), found to have a left lower lung nodule, which was biopsied 10/28/16 ([facility]), revealing carcinoid tumor. PET scan 12/15/16 showed the 2.5 x 2.3 cm nodule in the left lower lobe to have increased FDG uptake (max SUV 7). It was felt due to her comorbidities, that a limited resection was indicated, so on 01/07/17, Dr. Santana performed a VATS left lower lung wedge resection. Assessment: hemodynamically stable Plan: -Diet: regular diet -Activity:ambulate 3-4 times a day -cough, deep breath, up and ambulate, use of coronet - desat study today (does require home O2) on RA at rest SpO2 86 % required 4L NC for SpO2 > 88%, with exertion required 6L NC to maintain SPO2 > 88%. - per Dr. Santana who spoke with Neuro patient no longer needs Plavix. . DISPOSITION AND FOLLOW-UP 01/07/20172016 Overview: History: and lives in [place], [place]. Admitted 01/07/17 for VATs lung wedge Assessment: discharge to home today given we can get her home O2 set up. Plan: - Discuss needs with patient and collaborate with case management - Will continue to evaluate during hospital admission. - d/c home today with home oxygen, follow up in 7-10 days with chest xray. Check oxygen requirements at follow up - keep hematology follow up that is scheduled in February. . Mechanical venous thromboembolism (VTE) prophyla xis in place 01/07/2017 01/09/2017 Overview: History: No history of DVT in the past. Now s/p VATS lung wedge 01/07/17 Assessment: High risk for DVT due to recent surgery and obesity. No leg pain, swelling or warmth on Lovenox 40mg daily subcutaneously and GABY hose. Plan: - Continue current regimen while in hospital - Encourage continued ambulation (at least TID) . Pain, postoperative, acute 01/07/201701/20 Overview: History: Status post: VATS lung wedge 01/07/17. Assessment: Current regimen: oxycodone 5-10 mg every 4 hours prn, tylenol 650 mg q6H prn. And ibuprofen 400 mg every 6 hours as needed Plan: - continue oxycodone, tylenol and ibuprofen. - Continue to re-assess pain control. - bowel regimen: dulc suppository, milk of mag prn, and daily Miralax . Encounter for preoperative a nesthesiology assessment for thoracic surgery 01/06/2017 12/07/2017 Astigmatism of eye 10/05/2016 10/11/2016 Combined forms of age-related cataract, right ey e 10/05/2016 01/21/2020 Essential thrombocytosis 05/11/2016 021 Overview: History: Home med: hydroxyurea (alternates 500 mg and 1000 mg every other day), plavix 75 mg daily (stopped 01/08/17) and aspirin 81 mg daily. Established with Dr. Melara ([facility]) Preop platelet was 406 (01/06/17) Assessment: No signs of bleeding ; platelets today 403 Plan: -monitor CBC -monitor for signs of bleeding -per Dr. Santana who spoke with neuro; no longer needs to take the Plavix. . Type 2 diabetes mellitus wit h diabetic neuropathy, without long-term current use of insulin 12/05/2020 documented as of this encounter (statuses as of 01/10/2023) [facility]04-24-2018 History of Past illness Narrative* Problem Noted Date Diagnosed Date Resolved Date Type 2 diabetes mellitus without retinopathy 8 01/21/2020 Neuroendocrine tumor 01/07/2017 021 Overview: History: 66 year old remote smoker with DM2, TIA, HTN, thrombocytosis, sleep apnea and morbid obesity (BMI 50), found to have a left lower lung nodule, which was biopsied 10/28/16 (OSH), revealing carcinoid tumor. PET scan 12/15/16 showed the 2.5 x 2.3 cm nodule in the left lower lobe to have increased FDG uptake (max SUV 7). It was felt due to her comorbidities, that a limited resection was indicated, so on 01/07/17, Dr. Santana performed a VATS left lower lung wedge resection. Assessment: hemodynamically stable Plan: -Diet: regular diet -Activity:ambulate 3-4 times a day -cough, deep breath, up and ambulate, use of coronet - desat study today (does require home O2) on RA at rest SpO2 86 % required 4L NC for SpO2 > 88%, with exertion required 6L NC to maintain SPO2 > 88%. - per Dr. Santana who spoke with Neuro patient no longer needs Plavix. . DISPOSITION AND FOLLOW-UP 01/07/2017 Overview: History: and lives in [place], [place]. Admitted 01/07/17 for VATs lung wedge Assessment: discharge to home today given we can get her home O2 set up. Plan: - Discuss needs with patient and collaborate with case management - Will continue to evaluate during hospital admission. - d/c home today with home oxygen, follow up in 7-10 days with chest xray. Check oxygen requirements at follow up - keep hematology follow up that is scheduled in February. . Mechanical venous thromboemb olism (VTE) prophylaxis in place 01/07/2017 01/09/2017 Overview: History: No history of DVT in the past. Now s/p VATS lung wedge 01/07/17 Assessment: High risk for DVT due to recent surgery and obesity. No leg pain, swelling or warmth on Lovenox 40mg daily subcutaneously and GABY hose. Plan: - Continue current regimen while in hospital - Encourage continued ambulation (at least TID) . Pain, postoperative, acute 01/07/2017 0 01/21/2020 Overview: History: Status post: VATS lung wedge 01/07/17. Assessment: Current regimen: oxycodone 5-10 mg every 4 hours prn, tylenol 650 mg q6H prn. And ibuprofen 400 mg every 6 hours as needed Plan: - continue oxycodone, tylenol and ibuprofen. - Continue to re-assess pain control. - bowel regimen: dulc suppository, milk of mag prn, and daily Miralax . 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 Established with Dr. Melara ([facility]) Preop platelet was 406 (01/06/17) Assessment: No signs of bleeding ; platelets today 403 Plan: -monitor CBC -monitor for signs of bleeding -per Dr. Santana who spoke with neuro; no longer needs to take the Plavix. . 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 PET scan 12/15/16 showed the 2.5 x 2.3 cm nodule in the left lower lobe to have increased FDG uptake (max SUV 7). It was felt due to her comorbidities, that a limited resection was indicated, so on 01/07/17, Dr. Santana performed a VATS left lower lung wedge resection. Assessment: hemodynamically stable Plan: -Diet: regular diet -Activity:ambulate 3-4 times a day -cough, deep breath, up and ambulate, use of coronet - desat study today (does require home O2) on RA at rest SpO2 86 % required 4L NC for SpO2 > 88%, with exertion required 6L NC to maintain SPO2 > 88%. - per Dr. Santana who spoke with Neuro patient no longer needs Plavix. . DISPOSITION AND FOLLOW-UP 01/07/2017 Overview: History: and lives in [place], [place]. Admitted 01/07/17 for VATs lung wedge Assessment: discharge to home today given we can get her home O2 set up. Plan: - Discuss needs with patient and collaborate with case management - Will continue to evaluate during hospital admission. - d/c home today with home oxygen, follow up in 7-10 days with chest xray. Check oxygen requirements at follow up - keep hematology follow up that is scheduled in February. . Mechanical venous thromboemb olism (VTE) prophylaxis in place 01/07/2017 01/09/2017 Overview: History: No history of DVT in the past. Now s/p VATS lung wedge 01/07/17 Assessment: High risk for DVT due to recent surgery and obesity. No leg pain, swelling or warmth on Lovenox 40mg daily subcutaneously and GABY hose. Plan: - Continue current regimen while in hospital - Encourage continued ambulation (at least TID) . Pain, postoperative, acute 01/07/2017 0 01/21/2020 Overview: History: Status post: VATS lung wedge 01/07/17. Assessment: Current regimen: oxycodone 5-10 mg every 4 hours prn, tylenol 650 mg q6H prn. And ibuprofen 400 mg every 6 hours as needed Plan: - continue oxycodone, tylenol and ibuprofen. - Continue to re-assess pain control. - bowel regimen: dulc suppository, milk of mag prn, and daily Miralax . 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 Established with Dr. Melara ([facility]) Preop platelet was 406 (01/06/17) Assessment: No signs of bleeding ; platelets today 403 Plan: -monitor CBC -monitor for signs of bleeding -per Dr. Santana who spoke with neuro; no longer needs to take the Plavix. . Type 2 diabetes mellitus wit h diabetic neuropathy, without long-term current use of insulin 12/05/2020 documented as of this encounter (statuses as of 04/08/2023) [facility]04-[facility]-2018 History of Past illness Narrative* Problem Noted Date Diagnosed Date Resolved Date Type 2 diabetes mellitus without retinopathy 8 01/21/2020 Neuroendocrine tumor 01/07/2017 03/26/2 021 Overview: History: 66 year old remote smoker with DM2, TIA, HTN, thrombocytosis, sleep apnea and morbid obesity (BMI 50), found to have a left lower lung nodule, which was biopsied 10/28/16 (OSH), revealing carcinoid tumor. PET scan 12/15/16 showed the 2.5 x 2.3 cm nodule in the left lower lobe to have increased FDG uptake (max SUV 7). It was felt due to her comorbidities, that a limited resection was indicated, so on 01/07/17, Dr. Santana performed a VATS left lower lung wedge resection. Assessment: hemodynamically stable Plan: -Diet: regular diet -Activity:ambulate 3-4 times a day -cough, deep breath, up and ambulate, use of coronet - desat study today (does require home O2) on RA at rest SpO2 86 % required 4L NC for SpO2 > 88%, with exertion required 6L NC to maintain SPO2 > 88%. - per Dr. Santana who spoke with Neuro patient no longer needs Plavix. . DISPOSITION AND FOLLOW-UP 01/07/2017 Overview: History: and lives in [place], [place]. Admitted 01/07/17 for VATs lung wedge Assessment: discharge to home today given we can get her home O2 set up. Plan: - Discuss needs with patient and collaborate with case management - Will continue to evaluate during hospital admission. - d/c home today with home oxygen, follow up in 7-10 days with chest xray. Check oxygen requirements at follow up - keep hematology follow up that is scheduled in February. . Mechanical venous thromboemb olism (VTE) prophylaxis in place 01/07/2017 01/09/2017 Overview: History: No history of DVT in the past. Now s/p VATS lung wedge 01/07/17 Assessment: High risk for DVT due to recent surgery and obesity. No leg pain, swelling or warmth on Lovenox 40mg daily subcutaneously and GABY hose. Plan: - Continue current regimen while in hospital - Encourage continued ambulation (at least TID) . Pain, postoperative, acute 01/07/2017 0 01/21/2020 Overview: History: Status post: VATS lung wedge 01/07/17. Assessment: Current regimen: oxycodone 5-10 mg every 4 hours prn, tylenol 650 mg q6H prn. And ibuprofen 400 mg every 6 hours as needed Plan: - continue oxycodone, tylenol and ibuprofen. - Continue to re-assess pain control. - bowel regimen: dulc suppository, milk of mag prn, and daily Miralax . 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 Established with Dr. Melara ([facility]) Preop platelet was 406 (01/06/17) Assessment: No signs of bleeding ; platelets today 403 Plan: -monitor CBC -monitor for signs of bleeding -per Dr. Santana who spoke with neuro; no longer needs to take the Plavix. . Type 2 diabetes mellitus wit h diabetic neuropathy, without long-term current use of insulin 12/05/2020 documented as of this encounter (statuses as of 07/20/2023) [facility]04-[facility] History of Past illness Narrative* Problem Noted Date Diagnosed Date Resolved Date Type 2 diabetes mellitus without retinopathy 8 01/21/2020 Neuroendocrine tumor 01/07/2017 021 Overview: History: 66 year old remote smoker with DM2, TIA, HTN, thrombocytosis, sleep apnea and morbid obesity (BMI 50), found to have a left lower lung nodule, which was biopsied 10/28/16 (OSH), revealing carcinoid tumor. PET scan 12/15/16 showed the 2.5 x 2.3 cm nodule in the left lower lobe to have increased FDG uptake (max SUV 7). It was felt due to her comorbidities, that a limited resection was indicated, so on 01/07/17, Dr. Santana performed a VATS left lower lung wedge resection. Assessment: hemodynamically stable Plan: -Diet: regular diet -Activity:ambulate 3-4 times a day -cough, deep breath, up and ambulate, use of coronet - desat study today (does require home O2) on RA at rest SpO2 86 % required 4L NC for SpO2 > 88%, with exertion required 6L NC to maintain SPO2 > 88%. - per Dr. Santana who spoke with Neuro patient no longer needs Plavix. . DISPOSITION AND FOLLOW-UP 01/07/2017 Overview: History: and lives in [place], [place]. Admitted 01/07/17 for VATs lung wedge Assessment: discharge to home today given we can get her home O2 set up. Plan: - Discuss needs with patient and collaborate with case management - Will continue to evaluate during hospital admission. - d/c home today with home oxygen, follow up in 7-10 days with chest xray. Check oxygen requirements at follow up - keep hematology follow up that is scheduled in February. . Mechanical venous thromboemb olism (VTE) prophylaxis in place 01/07/2017 01/09/2017 Overview: History: No history of DVT in the past. Now s/p VATS lung wedge 01/07/17 Assessment: High risk for DVT due to recent surgery and obesity. No leg pain, swelling or warmth on Lovenox 40mg daily subcutaneously and GABY hose. Plan: - Continue current regimen while in hospital - Encourage continued ambulation (at least TID) . Pain, postoperative, acute 01/07/2017 0 01/21/2020 Overview: History: Status post: VATS lung wedge 01/07/17. Assessment: Current regimen: oxycodone 5-10 mg every 4 hours prn, tylenol 650 mg q6H prn. And ibuprofen 400 mg every 6 hours as needed Plan: - continue oxycodone, tylenol and ibuprofen. - Continue to re-assess pain control. - bowel regimen: dulc suppository, milk of mag prn, and daily Miralax . 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 Established with Dr. Melara ([facility]) Preop platelet was 406 (01/06/17) Assessment: No signs of bleeding ; platelets today 403 Plan: -monitor CBC -monitor for signs of bleeding -per Dr. Santana who spoke with neuro; no longer needs to take the Plavix. . 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 PET scan 12/15/16 showed the 2.5 x 2.3 cm nodule in the left lower lobe to have increased FDG uptake (max SUV 7). It was felt due to her comorbidities, that a limited resection was indicated, so on 01/07/17, Dr. Santana performed a VATS left lower lung wedge resection. Assessment: hemodynamically stable Plan: -Diet: regular diet -Activity:ambulate 3-4 times a day -cough, deep breath, up and ambulate, use of coronet - desat study today (does require home O2) on RA at rest SpO2 86 % required 4L NC for SpO2 > 88%, with exertion required 6L NC to maintain SPO2 > 88%. - per Dr. Santana who spoke with Neuro patient no longer needs Plavix. . DISPOSITION AND FOLLOW-UP 01/07/2017 Overview: History: and lives in [place], [place]. Admitted 01/07/17 for VATs lung wedge Assessment: discharge to home today given we can get her home O2 set up. Plan: - Discuss needs with patient and collaborate with case management - Will continue to evaluate during hospital admission. - d/c home today with home oxygen, follow up in 7-10 days with chest xray. Check oxygen requirements at follow up - keep hematology follow up that is scheduled in February. . Mechanical venous thromboemb olism (VTE) prophylaxis in place 01/07/2017 01/09/2017 Overview: History: No history of DVT in the past. Now s/p VATS lung wedge 01/07/17 Assessment: High risk for DVT due to recent surgery and obesity. No leg pain, swelling or warmth on Lovenox 40mg daily subcutaneously and GABY hose. Plan: - Continue current regimen while in hospital - Encourage continued ambulation (at least TID) . Pain, postoperative, acute 01/07/2017 0 01/21/2020 Overview: History: Status post: VATS lung wedge 01/07/17. Assessment: Current regimen: oxycodone 5-10 mg every 4 hours prn, tylenol 650 mg q6H prn. And ibuprofen 400 mg every 6 hours as needed Plan: - continue oxycodone, tylenol and ibuprofen. - Continue to re-assess pain control. - bowel regimen: dulc suppository, milk of mag prn, and daily Miralax . 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 Established with Dr. Melara ([facility]) Preop platelet was 406 (01/06/17) Assessment: No signs of bleeding ; platelets today 403 Plan: -monitor CBC -monitor for signs of bleeding -per Dr. Santana who spoke with neuro; no longer needs to take the Plavix. . Type 2 diabetes mellitus wit h diabetic neuropathy, without long-term current use of insulin 12/05/2020 documented as of this encounter (statuses as of 08/23/2023) [facility] Diagnosis Type 2 diabetes mellitus without complication, without long-term current use of insulin ([facility]) [facility] Diagnosis Essential hypertension Unspecified essential hypertension [facility] Diagnosis Type 2 diabetes mellitus without complication, without long-term current use of insulin ([facility]) [facility] Diagnosis Benign essential tremor Essential and other specified forms of tremor [facility] Diagnosis Moderate episode of recurrent major depressive disorder (HCC) [facility] Diagnosis Pneumonia of right middle lobe due to infectious organism- Primary [facility] Diagnosis Fall in home, initial encounter- Primary Acute pain of right knee Right forearm pain Pain in limb Moderate episode of recurrent major depressive disorder (HCC) Anxiety Anxiety state, unspecified Type 2 diabetes mellitus without complication, without long-term current use of insulin (HCC) Essential hypertension Unspecified essential hypertension Morbid obesity with BMI of 50.0-59.9, adult (HCC) Morbid obesity Chronic respiratory failure with hypoxia (HCC) Chronic respiratory failure History of COVID-19 [facility] Diagnosis TIA (transient ischemic attack)- Primary Unspecified transient cerebral ischemia Weakness of left side of body Muscle weakness (generalized) Sensory deficit, left Other general symptoms Headache, unspecified headache type Hypokalemia Hypopotassemia [facility] Diagnosis Type 2 diabetes mellitus without complication, without long-term current use of insulin ([facility]) [facility] Diagnosis Lacunar infarction (HCC)- Primary Unspecified cerebral artery occlusion with cerebral infarction Essential hypertension Unspecified essential hypertension Hypercholesteremia Pure hypercholesterolemia Type 2 diabetes mellitus without complication, without long-term current use of insulin (HCC) History of uterine cancer Personal history of malignant neoplasm of other parts of uterus History of lung cancer Personal history of malignant neoplasm of bronchus and lung Anxiety Anxiety state, unspecified [facility] Diagnosis Type 2 diabetes mellitus without complication, without long-term current use of insulin (HCC)- Primary TIA (transient ischemic attack) Unspecified transient cerebral ischemia Essential hypertension Unspecified essential hypertension Screening mammogram, encounter for Fall in home, initial encounter Need for influenza vaccination Need for prophylactic vaccination and inoculation against influenza Need for COVID-19 vaccine Screening for colon cancer Special screening for malignant neoplasms, colon [facility]* Diagnosis Benign essential tremor Essential and other specified forms of tremor [facility] Diagnosis Viral URI with cough- Primary Acute upper respiratory infections of unspecified site Bronchitis Bronchitis, not specified as acute or chronic Suspected COVID-19 virus infection [facility] Diagnosis Weakness of left side of body Muscle weakness (generalized) Sensory deficit, left Other general symptoms Headache, unspecified headache type TIA (transient ischemic attack) Unspecified transient cerebral ischemia [facility] Diagnosis Carcinoid tumor of left lung- Primary [facility]* Diagnosis Weakness of left side of body Muscle weakness (generalized) Sensory deficit, left Other general symptoms Headache, unspecified headache type TIA (transient ischemic attack) Unspecified transient cerebral ischemia [facility]* Diagnosis Type 2 diabetes mellitus, without long-term current use of insulin (HCC) [facility] Diagnosis Type 2 diabetes mellitus without complication, without long-term current use of insulin (HCC)- Primary Essential hypertension Unspecified essential hypertension Benign essential tremor Essential and other specified forms of tremor Transient cerebral ischemia, unspecified type Obstructive sleep apnea syndrome Obstructive sleep apnea (adult) (pediatric) Morbid obesity with BMI of 50.0-59.9, adult (HCC) Morbid obesity Anxiety Anxiety state, unspecified Moderate episode of recurrent major depressive disorder (HCC) Chronic respiratory failure with hypoxia (HCC) Chronic respiratory failure Type 2 diabetes mellitus with diabetic neuropathy, without long-term current use of insulin ([facility]) [facility] Diagnosis Pain in right lower leg- Primary Sciatica, right side [facility] Diagnosis Moderate episode of recurrent major depressive disorder (HCC) documented in this encounter [facility]* Diagnosis Type 2 diabetes mellitus without complication, without long-term current use of insulin (HCC)- Primary Benign essential tremor Essential and other specified forms of tremor TIA (transient ischemic attack) Unspecified transient cerebral ischemia Gait instability Abnormality of gait Encounter for screening mammogram for breast cancer Essential hypertension Unspecified essential hypertension Obstructive sleep apnea syndrome Obstructive sleep apnea (adult) (pediatric) Chronic respiratory failure with hypoxia (HCC) Chronic respiratory failure [facility]* Diagnosis Encounter for screening mammogram for breast cancer documented in this encounter [facility] for referral (narrative)* Diagnostic Procedure Only (Routine) - Closed Specialty Diagnoses / Procedures Referred By Contac t Referred To Contact XR IMAGING Diagnoses Right forearm pain Procedures XR FOREARM GENERAL 2V AP/LAT RIGHT RADEX FOREARM 2 VIEWS Jon Valenzuela MD [address] [place] [address] Xr Imaging Referral ID Status Reason Start Date Expiration Date V isits Requested Visits Authorized [id number] Closed Auto-Generate d Referral 04/05/2022 05/05/2023 1 1 * Diagnostic Procedure Only (Routine) - Closed Specialty Diagnoses / Procedures Referred By Contac t Referred To Contact XR IMAGING Diagnoses Acute pain of right knee Procedures XR KNEE GENERAL 4V AP BOTH/PA BOTH/LAT/MERC RIGHT RADIOLOGIC EXAM KNEE COMPLETE 4/MORE VIEWS Jon Valenzuela MD [address] [place] [address] Xr Imaging Referral ID Status Reason Start Date Expiration Date V isits Requested Visits Authorized [id number] Closed Auto-Generate d Referral 04/05/2022 05/05/2023 1 1 [facility] for referral (narrative)* Diagnostic Procedure Only (Routine) - Authorized Specialty Diagnoses / Procedures Referred By Contac t Referred To Contact BR IMAGING Diagnoses Screening mammogram, encounter for Procedures EDEL SCREENING SCREENING MAMMOGRAPHY BI 2-VIEW BREAST INC CAD Jon Valenzuela MD [address] [place] [address] [facility] [address] [place] [address] Referral ID Status Reason Start Date Expiration Date Visits Requested Visits Authorized [id number] Authorized Auto-Generat ed Referral 08/17/2022 08/05/2023 1 1 [facility] for referral (narrative)* Diagnostic Procedure Only (Urgent) - Pending Review Specialty Diagnoses / Procedures Referred By Servando t Referred To Contact US IMAGING Diagnoses Pain in right lower leg Procedures US DVT LOWER RIGHT DUP-SCAN XTR VEINS UNILATERAL/LIMITED STUDY Natalie Benitez APRN.CNP [address] [place] [address] Us Imaging Referral ID Status Reason Start Date Expiration Date Visits Requested Visits Authorized [id number] Pending Review Auto-Generat ed Referral 03/29/2023 04/27/2024 1 1 [facility] for referral (narrative)* Diagnostic Procedure Only (Routine) - Pending Review Specialty Diagnoses / Procedures Referred By Servando t Referred To Contact BR IMAGING Diagnoses Encounter for screening mammogram for breast cancer Procedures EDEL SCREENING SCREENING MAMMOGRAPHY BI 2-VIEW BREAST INC Jagdish Powers APRN.CNP [address] [place] [address] [facility] [address] [place] [address] Referral ID Status Reason Start Date Expiration Date Visits Requested Visits Authorized [id number] Pending Review Auto-Generat ed Referral 07/19/2023 08/17/2024 1 1 [facility] for visit Narrative* Diagnostic Procedure Only (Routine) - Closed Specialty Diagnoses / Procedures Referred By Servando messina Referred To Contact BR IMAGING Diagnoses Encounter for screening mammogram for breast cancer Procedures EDEL SCREENING SCREENING MAMMOGRAPHY BI 2-VIEW BREAST INC CAD PodlogJagdish araujo APRN.MING [address] [place] [address] Br Imaging [address] [place] [address] Referral ID Status Reason Start Date Expiration Date V isits Requested Visits Authorized [id number] Closed Auto-Generate d Referral 07/19/2023 08/17/2024 1 1 [facility] Summary Purpose Family History No Family History Records FoundNo Family History Records FoundNo Family History Records FoundNo Family History Records Found Advance Directives No Advanced Directives Records FoundDocuments on File Type Date Recorded 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 Advance Directive(s) 07/04/2020 9:43 AM Advance Directive(s) 06/25/2020 8:41 AM Advance Directive(s) 01/06/2017 1:33 PM Documents on File Type Date Recorded 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 Advance Directive(s) 07/04/2020 9:43 AM Advance Directive(s) 06/25/2020 8:41 AM Advance Directive(s) 01/06/2017 1:33 PM Reason for Referral Specialty Diagnoses / Procedures Referred By Servando messina Referred To Contact Neurology Diagnoses Weakness of left side of body Sensory deficit, left Headache, unspecified headache type TIA (transient ischemic attack) Procedures CONSULT TO NEUROLOGY OFFICE/OUTPATIENT [facility] MDM 60-74 MINUTES Jon Valenzuela MD [address] [place] [address] Referral ID Status Reason Start Date Expiration Date Visits Requested Visits Authorized [id number] Authorized PCP Requested Referral 05/04/2022 05/04/2023 1 1 Additional Source Comments INFORMATION SOURCE (unrecogn ized section and content) DATE CREATED AUTHOR AUTHOR'S ORGANIZ ATION 07/04/2020 [facility] DATE CREATED AUTHOR AUTHOR'S ORGANIZ ATION 06/16/2022 [facility] [place] DATE CREATED AUTHOR AUTHOR'S ORGANIZ ATION 08/24/2023 [facility] Source Comments (unrecognize d section and content) In the event this informatio n is protected by the Federal Confidentiality of Alcohol and Drug Abuse Patient Records regulations: The Federal rules restrict any use of the information to criminally investigate or prosecute any alcohol or drug abuse patient.[facility] the event this information is protected by the Federal Confidentiality of Alcohol and Drug Abuse Patient Records regulations: The Federal rules restrict any use of the information to criminally investigate or prosecute any alcohol or drug abuse patient.[facility] the event this information is protected by the Federal Confidentiality of Alcohol and Drug Abuse Patient Records regulations: The Federal rules restrict any use of the information to criminally investigate or prosecute any alcohol or drug abuse patient.[facility] the event this information is protected by the Federal Confidentiality of Alcohol and Drug Abuse Patient Records regulations: The Federal rules restrict any use of the information to criminally investigate or prosecute any alcohol or drug abuse patient.[facility] the event this information is protected by the Federal Confidentiality of Alcohol and Drug Abuse Patient Records regulations: The Federal rules restrict any use of the information to criminally investigate or prosecute any alcohol or drug abuse patient.[facility] the event this information is protected by the Federal Confidentiality of Alcohol and Drug Abuse Patient Records regulations: The Federal rules restrict any use of the information to criminally investigate or prosecute any alcohol or drug abuse patient.[facility] the event this information is protected by the Federal Confidentiality of Alcohol and Drug Abuse Patient Records regulations: The Federal rules restrict any use of the information to criminally investigate or prosecute any alcohol or drug abuse patient.[facility] the event this information is protected by the Federal Confidentiality of Alcohol and Drug Abuse Patient Records regulations: The Federal rules restrict any use of the information to criminally investigate or prosecute any alcohol or drug abuse patient.[facility] the event this information is protected by the Federal Confidentiality of Alcohol and Drug Abuse Patient Records regulations: The Federal rules restrict any use of the information to criminally investigate or prosecute any alcohol or drug abuse patient.[facility] the event this information is protected by the Federal Confidentiality of Alcohol and Drug Abuse Patient Records regulations: The Federal rules restrict any use of the information to criminally investigate or prosecute any alcohol or drug abuse patient.[facility] the event this information is protected by the Federal Confidentiality of Alcohol and Drug Abuse Patient Records regulations: The Federal rules restrict any use of the information to criminally investigate or prosecute any alcohol or drug abuse patient.[facility] the event this information is protected by the Federal Confidentiality of Alcohol and Drug Abuse Patient Records regulations: The Federal rules restrict any use of the information to criminally investigate or prosecute any alcohol or drug abuse patient.[facility] the event this information is protected by the Federal Confidentiality of Alcohol and Drug Abuse Patient Records regulations: The Federal rules restrict any use of the information to criminally investigate or prosecute any alcohol or drug abuse patient.[facility] the event this information is protected by the Federal Confidentiality of Alcohol and Drug Abuse Patient Records regulations: The Federal rules restrict any use of the information to criminally investigate or prosecute any alcohol or drug abuse patient.[facility] the event this information is protected by the Federal Confidentiality of Alcohol and Drug Abuse Patient Records regulations: The Federal rules restrict any use of the information to criminally investigate or prosecute any alcohol or drug abuse patient.[facility] the event this information is protected by the Federal Confidentiality of Alcohol and Drug Abuse Patient Records regulations: The Federal rules restrict any use of the information to criminally investigate or prosecute any alcohol or drug abuse patient.[facility] the event this information is protected by the Federal Confidentiality of Alcohol and Drug Abuse Patient Records regulations: The Federal rules restrict any use of the information to criminally investigate or prosecute any alcohol or drug abuse patient.[facility] the event this information is protected by the Federal Confidentiality of Alcohol and Drug Abuse Patient Records regulations: The Federal rules restrict any use of the information to criminally investigate or prosecute any alcohol or drug abuse patient.[facility] the event this information is protected by the Federal Confidentiality of Alcohol and Drug Abuse Patient Records regulations: The Federal rules restrict any use of the information to criminally investigate or prosecute any alcohol or drug abuse patient.[facility] the event this information is protected by the Federal Confidentiality of Alcohol and Drug Abuse Patient Records regulations: The Federal rules restrict any use of the information to criminally investigate or prosecute any alcohol or drug abuse patient.[facility] the event this information is protected by the Federal Confidentiality of Alcohol and Drug Abuse Patient Records regulations: The Federal rules restrict any use of the information to criminally investigate or prosecute any alcohol or drug abuse patient.[facility] the event this information is protected by the Federal Confidentiality of Alcohol and Drug Abuse Patient Records regulations: The Federal rules restrict any use of the information to criminally investigate or prosecute any alcohol or drug abuse patient.[facility] the event this information is protected by the Federal Confidentiality of Alcohol and Drug Abuse Patient Records regulations: The Federal rules restrict any use of the information to criminally investigate or prosecute any alcohol or drug abuse patient.[facility] the event this information is protected by the Federal Confidentiality of Alcohol and Drug Abuse Patient Records regulations: The Federal rules restrict any use of the information to criminally investigate or prosecute any alcohol or drug abuse patient.[facility] the event this information is protected by the Federal Confidentiality of Alcohol and Drug Abuse Patient Records regulations: The Federal rules restrict any use of the information to criminally investigate or prosecute any alcohol or drug abuse patient.[facility] the event this information is protected by the Federal Confidentiality of Alcohol and Drug Abuse Patient Records regulations: The Federal rules restrict any use of the information to criminally investigate or prosecute any alcohol or drug abuse patient.[facility] the event this information is protected by the Federal Confidentiality of Alcohol and Drug Abuse Patient Records regulations: The Federal rules restrict any use of the information to criminally investigate or prosecute any alcohol or drug abuse patient.[facility] the event this information is protected by the Federal Confidentiality of Alcohol and Drug Abuse Patient Records regulations: The Federal rules restrict any use of the information to criminally investigate or prosecute any alcohol or drug abuse patient.[facility] the event this information is protected by the Federal Confidentiality of Alcohol and Drug Abuse Patient Records regulations: The Federal rules restrict any use of the information to criminally investigate or prosecute any alcohol or drug abuse patient.[facility]In the event this information is protected by the Federal Confidentiality of Alcohol and Drug Abuse Patient Records regulations: The Federal rules restrict any use of the information to criminally investigate or prosecute any alcohol or drug abuse patient.[facility]In the event this information is protected by the Federal Confidentiality of Alcohol and Drug Abuse Patient Records regulations: The Federal rules restrict any use of the information to criminally investigate or prosecute any alcohol or drug abuse patient.[facility]In the event this information is protected by the Federal Confidentiality of Alcohol and Drug Abuse Patient Records regulations: The Federal rules restrict any use of the information to criminally investigate or prosecute any alcohol or drug abuse patient.[facility]In the event this information is protected by the Federal Confidentiality of Alcohol and Drug Abuse Patient Records regulations: The Federal rules restrict any use of the information to criminally investigate or prosecute any alcohol or drug abuse patient.[facility]In the event this information is protected by the Federal Confidentiality of Alcohol and Drug Abuse Patient Records regulations: The Federal rules restrict any use of the information to criminally investigate or prosecute any alcohol or drug abuse patient.[facility]In the event this information is protected by the Federal Confidentiality of Alcohol and Drug Abuse Patient Records regulations: The Federal rules restrict any use of the information to criminally investigate or prosecute any alcohol or drug abuse patient.[facility] Reason for Visit (unrecogniz ed section and content) Reason Onset Date Comments Refill Request 01/07/2022 Reason Onset Date Comments Refill Request 12/22/2021 Reason Onset Date Comments Refill Request 01/18/2022 Refill Request 01/20/2022 Reason Onset Date Comments Refill Request 02/10/2022 Reason Comments Medication/symptom question Reason Comments Results Reason Comments Follow Up 6 month Reason Comments Patient Update Reason Comments Transition Of Care To ER on 04/26/22 an d admitted for stroke. Discharged 04/28/22 Reason Comments Patient Question Reason Onset Date Comments Refill Request 05/18/2022 Reason Onset Date Comments Refill Request 06/13/2022 Reason Comments TIA Reason Onset Date Comments Follow Up Immunizations 07/06/2022 Flu vaccination Reason Onset Date Comments Refill Request 07/19/2022 Reason Comments Chest Congestion Reason Comments Illness Reason Onset Date Comments Opened In Error 07/23/2022 Reason Onset Date Comments Refill Request 07/30/2022 Reason Comments Established Patient Reason Onset Date Comments Refill Request 10/27/2022 Reason Comments Follow Up Reason Comments Leg Pain right leg pain x 2 w eeks Reason Onset Date Comments Refill Request 04/07/2023 Reason Comments F/U 6 Month Care Teams (unrecognized sec tion and content) Buoy Tender Relationship Specialty Start Date End Date Jon Valenzuela MD [address] [place], [place] [id number] PCP - General Family Practice 12/02/16 [facility] 01/11/17 Buoy Tender Relationship Specialty Start Date End Date Jon Valenzuela MD [address] [place], [place] [id number] PCP - General Family Practice 12/02/16 [facility] 01/11/17 Buoy Tender Relationship Specialty Start Date End Date Jon Valenzuela MD [address] [place], [place] [id number] PCP - General Family Practice 12/02/16 [facility] 01/11/17 Buoy Tender Relationship Specialty Start Date End Date Jon Valenzuela MD [address] [place] [address] PCP - General Family Practice 12/02/16 [facility] 01/11/17 Buoy Tender Relationship Specialty Start Date End Date Jon Valenzuela MD [address] [place] [address] PCP - General Family Practice 12/02/16 [facility] 01/11/17 Buoy Tender Relationship Specialty Start Date End Date Jon Valenzuela MD [address] [place] [address] PCP - General Family Practice 12/02/16 [facility] 01/11/17 Buoy Tender Relationship Specialty Start Date End Date Jon Valenzuela MD [address] [place] [address] PCP - General Family Practice 12/02/16 [facility] 01/11/17 Buoy Tender Relationship Specialty Start Date End Date Jon Valenzuela MD [address] [place] [address] PCP - General Family Practice 12/02/16 [facility] 01/11/17 Buoy Tender Relationship Specialty Start Date End Date Jon Valenzuela MD [address] [place] [address] PCP - General Family Practice 12/02/16 [facility] 01/11/17 Buoy Tender Relationship Specialty Start Date End Date Jon Valenzuela MD [address] [place] [address] PCP - General Family Practice 12/02/16 [facility] 01/11/17 Buoy Tender Relationship Specialty Start Date End Date Jon Valenzuela MD [address] [place] [address] PCP - General Family Medicine 12/02/16 [facility] 01/11/17 Buoy Tender Relationship Specialty Start Date End Date Jon Valenzuela MD [address] [place] [address] PCP - General Family Medicine 12/02/16 [facility] 01/11/17 Buoy Tender Relationship Specialty Start Date End Date Jon Valenzuela MD [address] [place] [address] PCP - General Family Medicine 12/02/16 [facility] 01/11/17 Buoy Tender Relationship Specialty Start Date End Date Jon Valenzuela MD [address] [place] [address] PCP - General Family Medicine 12/02/16 [facility] 01/11/17 Buoy Tender Relationship Specialty Start Date End Date Jon Valenzuela MD [address] [place] [address] PCP - General Family Medicine 12/02/16 [facility] 01/11/17 Buoy Tender Relationship Specialty Start Date End Date Jon Valenzuela MD [address] [place] [address] PCP - General Family Medicine 12/02/16 [facility] 01/11/17 Buoy Tender Relationship Specialty Start Date End Date Jon Valenzuela MD [address] [place] [address] PCP - General Family Medicine 12/02/16 [facility] 01/11/17 Buoy Tender Relationship Specialty Start Date End Date Jon Valenzuela MD [address] [place] [address] PCP - General Family Medicine 12/02/16 [facility] 01/11/17 Buoy Tender Relationship Specialty Start Date End Date Jon Valenzuela MD [address] [place] [address] PCP - General Family Medicine 12/02/16 [facility] 01/11/17 Buoy Tender Relationship Specialty Start Date End Date Jon Valenzuela MD [address] [place] [address] PCP - General Family Medicine 12/02/16 [facility] 01/11/17 Buoy Tender Relationship Specialty Start Date End Date Jon Valenzuela MD [address] [place] [address] PCP - General Family Medicine 12/02/16 [facility] 01/11/17 Buoy Tender Relationship Specialty Start Date End Date Jon Valenzuela MD [address] [place] [address] PCP - General Family Medicine 12/02/16 [facility] 01/11/17 Buoy Tender Relationship Specialty Start Date End Date Jon Valenzuela MD [address] [place] [address] PCP - General Family Medicine 12/02/16 [facility] 01/11/17 Buoy Tender Relationship Specialty Start Date End Date Jon Valenzuela MD [address] [place] [address] PCP - General Family Medicine 12/02/16 [facility] 01/11/17 Buoy Tender Relationship Specialty Start Date End Date Jon Valenzuela MD [address] [place] [address] PCP - General Family Medicine 12/02/16 [facility] 01/11/17 Buoy Tender Relationship Specialty Start Date End Date Jon Valenzuela MD [address] [place] [address] PCP - General Family Medicine 12/02/16 [facility] 01/11/17 Buoy Tender Relationship Specialty Start Date End Date Jon Valenzuela MD [address] [place] [address] PCP - General Family Medicine 12/02/16 [facility] 01/11/17 FOR RECORDS PERTAINING TO PATIENTS WHO ARE OR HAVE BEEN ENROLLED IN A CHEMICAL DEPENDENCY/SUBSTANCEABUSE PROGRAM, SOME INFORMATION MAY BE OMITTED. This clinical summary was aggregated from multiple sources. Caution should be exercised in using it in the provision of clinical care. This summary normalizes information from multiple sources, and as a consequence, information in this document may materially change the coding, format and clinical context of patient data. In addition, data may be omitted in some cases. CLINICAL DECISIONS SHOULD BE BASED ON THE PRIMARY CLINICAL RECORDS. [facility] [employer] provides no warranty or guarantee of the accuracy or completeness of information in this document.
== END 2023-10-07 12:18 | disposition home or self-care (01) ==
PROVIDERS: Emergency Provider Emergency Medicine; PCP Family Medicine; Visit Provider Emergency Medicine
DX: S06.0X0A Concussion without loss of consciousness, initial encounter (principal); E11.9 Type 2 diabetes mellitus without complications; W10.9XXA Fall (on) (from) unspecified stairs and steps, initial encounter; S70.11XA Contusion of right thigh, initial encounter; S50.11XA Contusion of right forearm, initial encounter; I10 Essential (primary) hypertension; E66.9 Obesity, unspecified; Z79.82 Long term (current) use of aspirin; Z79.84 Long term (current) use of oral hypoglycemic drugs; Z79.899 Other long term (current) drug therapy; Z86.73 Personal history of transient ischemic attack (TIA), and cerebral infarction without residual deficits; Z87.891 Personal history of nicotine dependence
CPT/HCPCS: 70450; 73090; 73590; 99282

== ENCOUNTER 2024-04-26 22:26 | Observation (INO) | payer MEDICARE, SELFPAY ==
[2024-04-26] VITALS (8 sets, daily range): BP systolic 138–162; BP diastolic 61–68; PULSE 60–78; RESP 16–27; TEMP 37.1–37.2; O2SAT 92–98; BMI 46.4
--- NOTE | 2024-04-26 22:29 | CT_ITS ---
INDICATION: Neuro deficit, acute, stroke suspected EXAMINATION: CT BRAIN - CT Head Stroke Protocol W/O Contrast Injection TECHNIQUE: Multiple axial images were obtained of the head without intravenous contrast. The protocol utilizes one or more of the following dose reduction techniques: automated exposure control, adjustment of mA and/or kV according to patient size,and/or use of iterative reconstruction technique. IV Contrast dosage and agent: None. COMPARISON: 10/07/2023 FINDINGS: BRAIN PARENCHYMA: No intra- or extra-axial hemorrhage. No evidence of acute infarct. No intracranial mass or mass effect. There is preservation of the alberto/white matter interface. Posterior fossa structures are unremarkable. Stable small lacunar infarcts of bilateral basal ganglia. CSF SPACES: Appropriate for age. No hydrocephalus. Basal cisterns are patent. CALVARIUM, SKULL BASE, PARANASAL SINUSES AND MASTOID AIR CELLS: Clear. No discrete lytic or blastic abnormalities. ORBITS: Both globes, extraocular muscles, optic nerves and retrobulbar fat appear unremarkable. ASPECTS Score for Acute Strokes: 10 CT/STROKE Brain/Head without Cont IMPRESSION: No acute abnormality or change. No evidence for acute infarct. No hemorrhage. N.B. : The above Results were Read Back by Arcenio Summers MD to Skyler Rivers MD, and understanding confirmed on 04/26/2024 22:46:53 (ET). Electronically Signed: Arcenio Summers MD at 22:46 EDT ,
--- NOTE | 2024-04-26 22:29 | RAD_ITS ---
STUDY: X-RAY CHEST REASON FOR EXAM: Female, 73 years old. Neuro deficit, acute, stroke suspected TECHNIQUE: Single AP portable view of the chest. COMPARISON: 04/26/2022 FINDINGS: The lungs are clear and expanded. There is no demonstrated pleural abnormality. Normal size heart. Normal mediastinum and colt. Normal visualized pulmonary arteries. Normal visualized aortic arch and descending thoracic aorta. Normal visualized thoracic spine. Normal visualized ribs, clavicles, and shoulders. There is no demonstrated abnormality of the visualized soft tissue structures of the upper abdomen. RAD/Chest 1 View IMPRESSION: Normal x-ray examination of the chest. Electronically Signed: Arcenio Summers MD at 23:47 EDT ,
--- NOTE | 2024-04-26 22:29 | EKG12_ITS ---
Test Reason : DYSRHYTHMIA Blood Pressure : / mmHG Vent. Rate : 075 BPM Atrial Rate : 075 BPM P-R Int : 232 ms QRS Dur : 106 ms QT Int : 410 ms P-R-T Axes : 016 -52 031 degrees QTc Int : 457 ms Sinus rhythm with 1st degree A-V block Left anterior fascicular block Minimal voltage criteria for LVH, may be normal variant ( Rogerio product ) Abnormal ECG Confirmed by José Luis Gutiérrez ([id number]), managing editor SEVERIANO LOMELI ([id number]) on 04/30/2024 9:11:59 AM Referred By: Confirmed By:José Luis Gutiérrez
--- NOTE | 2024-04-26 22:30 | CT_ITS ---
INDICATION: Neuro deficit, acute, stroke suspected EXAMINATION: CTA HEAD AND CTA NECK TECHNIQUE: Noncontrast axial images were obtained of the brain previously. Subsequently, routine carotid CT angiogram protocol was performed without and with IV contrast. In addition, images were obtained of the [place]. NASCET criteria using the distal ICAs for comparison were used for evaluation of stenoses. 3D reconstructions were reviewed. The protocol utilizes one or more of the following dose reduction techniques: automated exposure control, adjustment of mA and/or kV according to patient size,and/or use of iterative reconstruction technique. IV Contrast dosage and agent: 100 mL of Isovue 370 COMPARISON: No relevant prior comparison study available FINDINGS: --CTA NECK: AORTIC ARCH AND BRANCHES: Normal anatomy, patent. RIGHT CCA: No occlusion, significant stenosis or dissection. RIGHT ICA: No occlusion, significant stenosis or dissection. LEFT CCA: No occlusion, significant stenosis or dissection. LEFT ICA: No occlusion, significant stenosis or dissection. RIGHT VERTEBRAL ARTERY: No occlusion, significant stenosis or dissection. LEFT VERTEBRAL ARTERY: No occlusion, significant stenosis or dissection. NECK SOFT TISSUES: No lymphadenopathy. The lung apices are clear. OSSEOUS STRUCTURES: Mild degenerative changes of the spine. Slight anterolisthesis of C5 on C6 appearing degenerative . --CTA HEAD: --Anterior circulation: ICAs: No significant stenosis at the intracranial/visualized segments. ACAs: No significant stenosis at the visualized segments. ACOM: Present. MCAs: No significant stenosis at the visualized segments. --Posterior circulation: PCOMs: Not visualized. civil transportation engineer: No significant stenosis at the visualized segments. BASILAR ARTERY: No significant stenosis. VERTEBRAL ARTERIES: No significant stenosis at the intradural/visualized segments. No evidence of intracranial aneurysm or vascular malformation. CT/STROKE CTA Head AND Neck W/Con IMPRESSION: No large vessel occlusion or flow-limiting stenosis. N.B. : The above Results were Read Back by Ethan Lennon MD to Markell Sanchez DO, and understanding confirmed on 04/26/2024 23:06:22 (ET). Electronically Signed: Ethan Lennon MD at 23:06 EDT ,
--- NOTE | 2024-04-26 22:31 | ED.VIS.STROK ---
HPI History of Present Illness Chief Complaint: Stroke Alert Informant: patient and EMS Narrative Narrative: Presents as a prehospital stroke activation. Brought in by EMS. Reported 3:30 PM today patient just did not feel well had slight headache in the central region. Family took her home. At 9:30 PM patient states she walked to the bathroom she felt well she was witnessed by her spouse. On return from the bathroom she felt weak on the right side she fell to the right. She is right-hand dominant. She noted drooping. She reports TIA in the past with no deficits. She ambos with a walker. She is not on any blood thinners. EMS reports blood glucose 136. They reported right-sided weakness and finger-nose deficits. [facility] Medical History Anxiety Chronic pain On home oxygen therapy Sleep apnea BiPAP (biphasic positive airway pressure) dependence Lung cancer Morbid obesity Hyperlipidemia Obstructive sleep apnea Pneumonia due to COVID-19 virus History of TIA (transient ischemic attack) History of carcinoma Depression Diabetes HTN (hypertension) Neuropathy Fibromyalgia Chronic idiopathic thrombocytopenia Osteopenia Essential hypertension Pulmonary hypertension History of lung cancer History of stroke Hyperlipidemia Anxiety Depression Type 2 diabetes mellitus Home Medications ?Medication ?Instructions ?Recorded ?Last Taken ?Type fluoxetine 40 mg capsule 80 mg PO DAILY mental health 02/22/18 12/12/20 History calcium carbonate 500 mg-vitamin 2 tab PO DAILY SUPPLEMENT 07/11/19 12/10/20 History D3 5 mcg (200 unit) tablet (Calcium 500 + D) albuterol sulfate 2.5 mg/3 mL 2.5 mg (3 mL) inhalation Q4H PRN 05/13/21 Unknown Rx (0.083 %) solution for nebulization Sob &/Or Wheezing #75 mL amlodipine 10 mg tablet 10 mg PO DAILY bp 04/26/22 04/26/22 History aspirin 81 mg capsule 81 mg PO DAILY blood thinner 04/26/22 04/26/22 History losartan 100 mg tablet 100 mg PO DAILY bp 04/26/22 04/26/22 History metformin 500 mg tablet,extended 1,000 mg PO BID diabetes 04/26/22 04/26/22 History release 24 hr rosuvastatin 20 mg tablet 20 mg PO DAILY 12/23/22 Unknown History albuterol sulfate 90 mcg/actuation 2 puff inhalation Q4H PRN Sob &/Or 12/29/23 Unknown Rx aerosol inhaler Wheezing #8.5 grams carvedilol 12.5 mg tablet 12.5 mg PO BID 04/26/24 Unknown History hydrochlorothiazide 25 mg tablet 25 mg PO DAILY 04/26/24 Unknown History primidone 50 mg tablet 25 mg PO QHS 04/26/24 Unknown History Allergy/AdvReac Type Severity Reaction Status Date / Time lisinopril Allergy Intermediate cough Verified 04/27/24 01:45 Family History Mother Diabetes Arthritis Tuberculosis Sister Cancer Brother Cancer leukemia Other Heart disease Hypertension Surgical History History of appendectomy History of lung surgery Hx of tonsillectomy H/O: hysterectomy H/O hand surgery Previous section History of cataract surgery H/O arthroscopic knee surgery History of cataract extraction with lens replacement History of hand surgery History of arthroscopic knee surgery History of lung surgery (12/2016) History of tonsillectomy History of section History of hysterectomy Social History household members: spouse housing: house Smoking Status: Former smoker Tobacco: How many years used: 2 how long ago did patient quit smokin years ago second hand exposure: Yes alcohol intake: never substance use type: does not use caffeine: Yes Type: coffee Number of servings: 1 ROS ROS ED Constitutional Constitutional ED: Denies chills, fever(s) or sweats Eyes Eyes: Denies change in vision ENT ENT ED: Denies dysphagia or sore throat Cardiovascular Cardiovascular: Denies chest pain, leg edema, palpitations or racing heartbeat Respiratory/Chest Respiratory/Chest: Denies cough, dyspnea or dyspnea on exertion Gastrointestinal Gastrointestinal: Denies abdominal pain, diarrhea, nausea or vomiting Genitourinary Genitourinary ED: Denies dysuria, hematuria or urinary frequency Musculoskeletal Musculoskeletal: Denies back pain, extremity pain or neck pain Integumentary Denies rash or wounds Neurologic Neurologic: Reports headache(s), paresthesias and weakness EXAM Physical Exam Const Vital Signs: 04/26/24 22:26 04/26/24 22:27 04/26/24 22:29 Temperature 98.8 F 98.9 F 98.8 F Temperature Source Temporal Temporal Temporal Pulse Rate 71 71 71 Respiratory Rate 20 H 20 H 20 H Blood Pressure 156/61 H 156/61 H 156/61 H Blood Pressure Mean 92 92 92 Pulse Ox 98 98 98 Oxygen Delivery Method Room Air Room Air Room Air 04/26/24 22:54 04/26/24 22:54 04/26/24 22:59 Temperature Temperature Source Pulse Rate 71 77 Respiratory Rate 20 H 18 Blood Pressure 156/61 H 162/68 H Blood Pressure Mean 92 99 Pulse Ox 98 98 95 Oxygen Delivery Method Room Air Room Air Room Air 04/26/24 23:29 04/26/24 23:30 04/26/24 23:30 Temperature Temperature Source Pulse Rate 60 78 60 Respiratory Rate 16 27 H 16 Blood Pressure 138/66 H 138/66 H 138/66 H Blood Pressure Mean 90 87 90 Pulse Ox 98 92 98 Oxygen Delivery Method Room Air Room Air Room Air 04/26/24 23:42 04/27/24 00:00 04/27/24 00:30 Temperature 98.8 F Temperature Source Pulse Rate 63 72 75 Respiratory Rate 16 20 H 20 H Blood Pressure 138/66 H 173/53 H 138/63 H Blood Pressure Mean 90 93 88 Pulse Ox 95 95 94 Oxygen Delivery Method Room Air Room Air Positive well nourished Constitutional Narrative: Evaluated on the cot on arrival. General Appearance ED: NAD HEENT Reports moist mucous membranes normocephalic and atraumatic Nose: other Eyes EOMs intact bilaterally and conjunctivae normal General Eye ED: Yes normal appearance of both eyes Neck no lymphadenopathy and supple General: Negative for tenderness Chest Wall Chest: Negative for tenderness Resp normal respiratory effort and normal air movement Effort and Inspection: symmetric chest movement; Negative for respiratory distress Cardio regular rate, regular rhythm and no murmurs Peripheral Pulses: pulses 2+ throughout GI normal to inspection, nondistended, normoactive bowel sounds and non-tender Palpation: Negative for guarding or rebound tenderness present Back/Spine no CVA tenderness and no thoracic nor lumbar tenderness Extremity normal to inspection General Extremety ED: Negative for edema or tenderness General Extremity: Negative for edema Neuro oriented x3 Neuro Narrative: Partial neurological exam done on the cot, she had slight right lip droop, she had right arm drift but did not hit the bed, she has paresthesias right arm and leg compared to the left side. She knew the age and month. 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 Sensorium / Orientation: awake and alert Skin no rashes or lesions noted and no wounds NIHSS NIHSS Initial: 1a Level of Consciousness: 0 1b LOC Questions (Score 2 if aphasic/stupor): 0 1c LOC Commands (Only score 1st attempt): 0 2 Best Gaze (If aphasic, use reflexive mvmts.): 0 3 Visual: 0 4 Facial Palsy: 1 5 Motor Arm Right (UN = amputation/fusion): 1 5 Motor Arm Left: 0 6 Motor Leg Right: 1 6 Motor Leg Left: 0 7 Limb ataxia (Only + if out of proportion): 1 8 Sensory (Aphasia/stupor=0 or 1, coma=2): 1 9 Best Language: 0 10 Dysarthria (mute, coma=2, intubated=UN): 0 11 Extinction and Inattention (only scored if +): 0 Total Score: 5 Follow up: 1a Level of Consciousness: 0 1b LOC Questions (Score 2 if aphasic/stupor): 0 1c LOC Commands (Only score 1st attempt): 0 2 Best Gaze (If aphasic, use reflexive mvmts.): 0 3 Visual: 0 4 Facial Palsy: 1 5 Motor Arm Right (UN = amputation/fusion): 0 5 Motor Arm Left: 0 6 Motor Leg Right: 0 6 Motor Leg Left: 0 7 Limb ataxia (Only + if out of proportion): 0 8 Sensory (Aphasia/stupor=0 or 1, coma=2): 0 9 Best Language: 0 10 Dysarthria (mute, coma=2, intubated=UN): 0 11 Extinction and Inattention (only scored if +): 0 Total Score: 1 MDM MDM MDM Narrative Medical decision making narrative: Interventions / MDM: Differential diagnosis: TIA, CVA, right-sided weakness, paresthesias Diagnosis considered but do not suspect: N/A My EKG interpretation: Sinus rate of 75, no ST or T wave changes. First-degree AV block. Left anterior fascicular block. QTc 457. Imaging independently reviewed and interpreted by myself: CT brain: No acute process. Also read and discussed with radiology. CT angiogram: Discussed with radiologist no stenosis or large vessel occlusion. 1 view chest x-ray: No acute process. External documents reviewed: MRI brain 2021, right mariano radiata lacunar infarct Test considered but not ordered:N/A ED course: Patient was strokelike symptoms right sided deficits. She reported her noted her walking to the bathroom 930 and was normal. She was sent over to CT from the cot with CT angiograms. Heart sounded regular on the doorway. Will continue stroke activation. 225: Return from CT NIH performed was a 5 right arm and leg drift and paresthesias. Right upper extremity slight ataxia. Slight right lip droop. She is being evaluated by stroke neurology at this time. 230: CT head: From radiologist negative for any intracranial hemorrhage. She is eval by stroke neurologist Dr. Luna, reported patient symptoms were slightly improving she did not feel as it was debilitating even with her right sided weakness evaluation. They recommended holding TNK at this time unless symptoms worsen or any LVO seen on CT angiogram. Patient on baby aspirin daily. Did not recommend loading Plavix at this time. Awaiting results. 2304: Discussed with radiologist CT angiogram results, no stenosis or large vessel occlusions. Patient white count returned at 13.8. Will add a UA as she states she was not feeling well today with transient dizziness. 0: Repeat NIH is 1 for very slight lip droop. Improved right hip flexor strength, mild decreased right hand fill plant operator on reevaluation. Will discuss with hospitalist for admission. I spoke with hospitalist Dr. Lackey for admission to PCU. Re-evaluation: stable Disposition discussed with patient/family/significant other: Patient and family Case discussed with consulting clinician: Stroke neurologist, hospitalist This note was generated with [employer] dictation software. It may contain incorrect words, spelling, and punctuation that were not noted in checking the note before signing. Lab Data Attestation: I reviewed the patient's lab results. Labs: Laboratory Results - last 24 hr 04/26/24 04/26/24 22:39 23:45 WBC 13.8 H RBC 4.59 Hgb 12.5 Hct 39.5 MCV 86.1 MCH 27.2 MCHC 31.6 L RDW Std Deviation 48.1 H RDW Coeff of Erica 15.2 H Plt Count 349 MPV 10.1 Immature Gran % (Auto) 0.400 Neut % (Auto) 63.5 Lymph % (Auto) 21.9 [place] % (Auto) 9.6 Eos % (Auto) 4.0 Baso % (Auto) 0.6 Absolute Neuts (auto) 8.8 H Absolute Lymphs (auto) 3.03 Nucleated RBC % 0 PT 14.3 INR 1.1 APTT 28.0 Sodium 139 Potassium 3.6 Chloride 102 Carbon Dioxide 29.0 Anion Gap 8 BUN 19 H Creatinine 0.98 Estim Creat Clear Calc 60.03 Est GFR (MDRD) Af Amer 72 Est GFR (MDRD) Non-Af 59 L BUN/Creatinine Ratio 19.4 Glucose 120 H Hemoglobin A1c 6.4 H Calcium 9.3 Troponin I High Sens 4 TSH 3.240 Urine Color Yellow Urine Clarity Clear Urine pH 6.0 Ur Specific [place] 1.010 Urine Protein Negative Urine Glucose (UA) Normal Urine Ketones Negative Urine Occult Blood Negative Urine Nitrite Negative Urine Bilirubin Negative Urine Urobilinogen Normal Ur Leukocyte Esterase 25 H Urine RBC 0 SEEN Urine WBC 0-5 SEEN Ur Squamous Epith Cells 0 SEEN Urine Bacteria 0 SEEN Urine Mucus 0 SEEN Radiography Diagnostic Testing: Clinical Impression(s) from Imaging Studies Brain CT 04/26/24 22:29 IMPRESSION: No acute abnormality or change. No evidence for acute infarct. No hemorrhage. N.B. : The above Results were Read Back by Arcenio Summers MD to Skyler Rivers MD, and understanding confirmed on 04/26/2024 22:46:53 (ET). Electronically Signed: Arcenio Summers MD at 22:46 EDT , Chest X-Ray 04/26/24 22:29 IMPRESSION: Normal x-ray examination of the chest. Electronically Signed: Arcenio Summers MD at 23:47 EDT , Head/Neck CTA 04/26/24 22:30 IMPRESSION: No large vessel occlusion or flow-limiting stenosis. N.B. : The above Results were Read Back by Ethan Lennon MD to Markell Sanchez DO, and understanding confirmed on 04/26/2024 23:06:22 (ET). Electronically Signed: Ethan Lennon MD at 23:06 EDT , ADDENDUM: 04/26/24 2313 IMPRESSION: No large vessel occlusion or flow-limiting stenosis. N.B. : The above Results were Read Back by Ethan Lennon MD to Markell Sanchez DO, and understanding confirmed on 04/26/2024 23:06:22 (ET). Electronically Signed: Ethan Lennon MD at 23:06 EDT , Stroke Documentation Questions Stroke Team Activated: Yes Reviewed Inclusion/Exclusion criteria: Yes Was Patient considered for Endovascular Intervention?: No-CTA negative, determined not to be an endovascular candidate IV Thrombolytic Administered: No (Reported non-debilitating and also rapid improvement of symptoms on reevalu) No contraindications from thrombolytic administration: No Risks, Benefits, Alternatives Discussed: Yes Not given: Patient refusal: No (Rapid improvement of symptoms) Critical Care Time Critical Care Time: Yes Critical care time (excluding procedures): 30-74 minutes, Discussing w/Patient &/or Family/Deployment Engineer, Discussing w/Consultants, Arranging Admission or Transfer, Performing Direct Patient Care at Bedside and - (31 minutes) Discharge Plan Dx/Rx/DC Orders Clinical Impression: Brain TIA, Acute right-sided weakness, Paresthesia Disposition Disposition: Acute Care Hospital [facility] Discharge Date/Time: 04/27/24 01:08
[2024-04-26 22:52] LABS: Absolute Lymphocyte Count 3.03 X10^3/uL (0.83-4.51); Absolute Neutrophil Count 8.8 X10^3/uL (2.0-7.7); Basophil# 0.08 X10^3/uL; Basophil% 0.6 % (0-1); Eosinophil# 0.56 X10^3/uL; Hematocrit 39.5 % (37-47); Hemoglobin 12.5 g/dL (12.0-15.0); Lymphocyte # 3.03 X10^3/ul (0.83-4.51); Lymphocyte % 21.9 % (19-41); Mean Corp Hgb Conc 31.6 g/dL (32-36); Mean Corpuscular Hgb 27.2 pg (27.0-32.0); Mean Corpuscular Volume 86.1 fL (81-99); Mean Platelet Vol. 10.1 fl (6.2-12.0); Monocyte# 1.33 X10^3/uL; Monocyte% 9.6 % (0-10); NRBC Flagged by Analyzer 0 % (0-5); Neutrophil # 8.78 X10^3/uL (2.7-7.7); Neutrophil % 63.5 % (47-70); Platelet Count 349 K/mm3 (150-450); RBC Distribution Width CV 15.2 % (11.6-14.6); RBC Distribution Width SD 48.1 fl (35.1-43.9); Red Blood Count 4.59 M/mm3 (4.2-5.4); White Blood Count 13.8 K/mm3 (4.4-11.0)
[2024-04-26 23:02] LABS: International Normalized Ratio 1.1; Prothrombin Time (Protime)PT. 14.3 SECONDS (11.7-14.9)
[2024-04-26 23:10] LABS: Anion Gap 8 (5-15); BUN 19 mg/dL (7-18); BUN/Creat Ratio 19.4 RATIO (10-20); Calcium,Total 9.3 mg/dL (8.5-10.1); Chloride 102 mmol/L (98-107); Creatinine, Serum 0.98 mg/dL (0.55-1.02); EST Glomerular Filtration Rate 59 mL/min (>60); Est Glom Filt Rate - Afr Amer 72 mL/min (>60); Estimated Creatinine Clearance 60.03 ml/min; Glucose 120 mg/dL (74-106); Potassium 3.6 mmol/L (3.5-5.1); Sodium Level 139 mmol/L (136-145); Troponin-I HS 4 pg/mL (3.0-54.0)
[2024-04-26 23:53] LABS: Bacteria 0 SEEN /hpf (None Seen); Mucous, Urine 0 SEEN /hpf (<or=2+); Red Blood Cells-Urine 0 SEEN /hpf (0-5); Squamous Epithelial Cells - UA 0 SEEN /hpf (5-10)
[2024-04-26 23:55] LABS: Color, Urine Yellow (Yellow); Glucose, Dipstick Normal (Normal); Ketone-Dipstick Negative (Negative); Leukocyte Esterase-Dipstick 25 /ul (Negative); Nitrite-Dipstick Negative (Negative); Occult Blood-Urine Negative /ul (Negative); Protein-Dipstick Negative (Negative); Urine Bilirubin Dipstick Negative (Negative); Urine Clarity Clear (Clear); Urine Urobilinogen Normal (Normal)
[2024-04-27] VITALS (9 sets, daily range): BP systolic 126–173; BP diastolic 53–119; PULSE 71–77; RESP 17–20; TEMP 36.4–36.7; O2SAT 93–99; BMI 48.8
[2024-04-27 00:03] LABS: White Blood Cells 0-5 SEEN /hpf (0-5)
--- NOTE | 2024-04-27 00:15 | HP.PCM.HOS_ITS ---
[facility] - General General Date of Admission: 04/27/24 Date of Service: 04/27/24 Chief Complaint: Headache, Transient Right-sided Weakness and Fall. [facility] Narrative BRI JIMÉNEZ, is a Right-handed 73 F with a past medical history of essential hypertension, hyperlipidemia, morbid obesity; with BMI of 46.4 this admission, JAJA; on nocturnal BiPAP, chronic hypoxic respiratory failure; on home oxygen, DM-2; of unknown control on Metformin, history of TIA's with Left-sided weakness; with no residual deficits (04/2023), history of Chronic ITP, history of COVID-19, neuropathy, fibromyalgia, depression with anxiety and OA; with chronic pain syndrome who presents to [facility] ER complaining of headache with transient Right-sided weakness and fall. Mrs. Jiménez reports her symptoms began approximately 3:30 PM on April 26, 2024 with patient developing a headache in the central region that was severe at 8-9/10 causing her family to take her home. She denies taking anything to treat her headache but was hoping her symptoms would resolve. Then around 9:30 PM she was coming back from going to the bathroom when she noticed Right-sided weakness causing her to fall to her Right with some mild persistent tingling in her Right hand. She then noted a Right facial droop so EMS was activated with 'stroke alert' activated en-route. There was no report of fever, chills, nausea, vomiting, diarrhea or constipation and she denies LOC, head trauma or other significant injury with her fall but she does admit her headache has now resolved. She stated she has a history of claustrophobia with closed MRI's and she is asking for a sedative to help her tolerate the test. In the ER her symptoms virtually resolved within ~5 minutes of arrival consistent with suspected TIA and she was then admitted to the PCU under observation status for ongoing care for a stay that is expected to be less than 2 midnights. [facility] Medical History Anxiety Chronic pain On home oxygen therapy Sleep apnea BiPAP (biphasic positive airway pressure) dependence Lung cancer Morbid obesity Hyperlipidemia Obstructive sleep apnea Pneumonia due to COVID-19 virus History of TIA (transient ischemic attack) History of carcinoma Depression Diabetes HTN (hypertension) Neuropathy Fibromyalgia Chronic idiopathic thrombocytopenia Osteopenia Essential hypertension Pulmonary hypertension History of lung cancer History of stroke Hyperlipidemia Anxiety Depression Type 2 diabetes mellitus Home Medications ?Medication ?Instructions ?Recorded ?Last Taken ?Type fluoxetine 40 mg capsule 80 mg PO DAILY mental health 02/22/18 12/12/20 History calcium carbonate 500 mg-vitamin 2 tab PO DAILY SUPPLEMENT 07/11/19 12/10/20 History D3 5 mcg (200 unit) tablet (Calcium 500 + D) albuterol sulfate 2.5 mg/3 mL 2.5 mg (3 mL) inhalation Q4H PRN 05/13/21 Unknown Rx (0.083 %) solution for nebulization Sob &/Or Wheezing #75 mL amlodipine 10 mg tablet 10 mg PO DAILY bp 04/26/22 04/26/22 History aspirin 81 mg capsule 81 mg PO DAILY blood thinner 04/26/22 04/26/22 History losartan 100 mg tablet 100 mg PO DAILY bp 04/26/22 04/26/22 History metformin 500 mg tablet,extended 1,000 mg PO BID diabetes 04/26/22 04/26/22 History release 24 hr rosuvastatin 20 mg tablet 20 mg PO DAILY 12/23/22 Unknown History albuterol sulfate 90 mcg/actuation 2 puff inhalation Q4H PRN Sob &/Or 09/09/23 Unknown Rx aerosol inhaler Wheezing #8.5 grams carvedilol 12.5 mg tablet 12.5 mg PO BID 04/26/24 Unknown History hydrochlorothiazide 25 mg tablet 25 mg PO DAILY 04/26/24 Unknown History primidone 50 mg tablet 25 mg PO QHS 04/26/24 Unknown History Allergy/AdvReac Type Severity Reaction Status Date / Time lisinopril Allergy Intermediate cough Verified 04/27/24 01:45 Family History Mother Diabetes Arthritis Tuberculosis Sister Cancer Brother Cancer leukemia Other Heart disease Hypertension Surgical History History of appendectomy History of lung surgery Hx of tonsillectomy H/O: hysterectomy H/O hand surgery Previous section History of cataract surgery H/O arthroscopic knee surgery History of cataract extraction with lens replacement History of hand surgery History of arthroscopic knee surgery History of lung surgery (12/2016) History of tonsillectomy History of section History of hysterectomy Social History household members: spouse housing: house Smoking Status: Former smoker Tobacco: How many years used: 2 how long ago did patient quit smokin years ago second hand exposure: Yes alcohol intake: never substance use type: does not use caffeine: Yes Type: coffee Number of servings: 1 ROS ROS Narrative Review of systems: Constitutional: Patient denies fever or chills. Eyes: Patient denies changes in vision or discharge from eyes. ENT: Patient denies runny nose, sore throat or ear pain. CV: Patient denies chest pain, palpitations or heart racing. Resp: Patient denies SOB or cough. GI: Patient denies nausea, vomiting, diarrhea or constipation. : Patient denies dysuria, hematuria or urinary retention. MSK: Patient denies arthralgias or myalgias. Neuro: Patient admits to headache, Right-sided weakness and fall as per HPI. She is also having tingling in her Right hand. Psych: Patient denies symptoms of uncontrolled depression or anxiety. Allergy: Patient denies lip swelling, tongue swelling or rash. Hematology: Patient denies easy bleeding or easy bruisability. Endocrinology: Patient denies polyuria, polydipsia and polyphagia. 14 point ROS otherwise negative except for positives noted above in HPI. Vital Signs Vital Signs Vital Signs: 04/26/24 22:26 04/26/24 22:27 04/26/24 22:29 Temperature 98.8 F 98.9 F 98.8 F Temperature Source Temporal Temporal Temporal Pulse Rate 71 71 71 Respiratory Rate 20 H 20 H 20 H Blood Pressure 156/61 H 156/61 H 156/61 H Blood Pressure Mean 92 92 92 Pulse Ox 98 98 98 Oxygen Delivery Method Room Air Room Air Room Air 04/26/24 22:54 04/26/24 22:54 04/26/24 22:59 Temperature Temperature Source Pulse Rate 71 77 Respiratory Rate 20 H 18 Blood Pressure 156/61 H 162/68 H Blood Pressure Mean 92 99 Pulse Ox 98 98 95 Oxygen Delivery Method Room Air Room Air Room Air 04/26/24 23:29 04/26/24 23:30 04/26/24 23:30 Temperature Temperature Source Pulse Rate 60 78 60 Respiratory Rate 16 27 H 16 Blood Pressure 138/66 H 138/66 H 138/66 H Blood Pressure Mean 90 87 90 Pulse Ox 98 92 98 Oxygen Delivery Method Room Air Room Air Room Air 04/26/24 23:42 Temperature 98.8 F Temperature Source Pulse Rate 63 Respiratory Rate 16 Blood Pressure 138/66 H Blood Pressure Mean 90 Pulse Ox 95 Oxygen Delivery Method Weight Weight: 245 lb 13.047 oz Body Mass Index (BMI) 46.4 Physical Exam Const alert, oriented x3, no apparent distress and healthy appearing Constitutional Narrative: Patient is morbidly obese. General Appearance: cooperative HEENT normocephalic, head/scalp atraumatic, hearing grossly normal bilaterally and moist oral mucous membranes Eyes PERRL and EOMs intact bilaterally Neck no lymphadenopathy and supple Resp normal respiratory effort, no retractions, no use of accessory muscles and clear to auscultation bilaterally Cardio regular rate and regular rhythm GI normal to inspection, nondistended, normoactive bowel sounds, soft to palpation, non-tender and non-distended GI Narrative: Morbidly obese. Extremity normal to inspection, full ROM and no clubbing, cyanosis or edema Skin Skin Narrative: Patient has no evidence of rash, abscess or jaundice. Neuro oriented x3, CN's II-XII intact bilaterally, moves all extremities and no focal motor deficits Sensorium / Orientation: awake, alert, oriented to person, oriented to place and oriented to time Speech: speech normal Motor Exam: strength 5/5 throughout Psych affect normal Results Medical Records Data Attestation: I reviewed the patient's medical records Lab / Micro Data Attestation: I reviewed the patient's lab results. 04/26/24 22:39 04/26/24 22:39 Labs: Laboratory Results - last 24 hr 04/26/24 22:39: WBC 13.8 H, RBC 4.59, Hgb 12.5, Hct 39.5, MCV 86.1, MCH 27.2, M CHC 31.6 L, RDW Std Deviation 48.1 H, RDW Coeff of Erica 15.2 H, Plt Count 349, MPV 10.1, Immature Gran % (Auto) 0.400, Neut % (Auto) 63.5, Lymph % (Auto) 21.9, [place] % (Auto) 9.6, Eos % (Auto) 4.0, Baso % (Auto) 0.6, Absolute Neuts (auto) 8.8 H, Absolute Lymphs (auto) 3.03, Nucleated RBC % 0, PT 14.3, INR 1.1, APTT 28.0, Sodium 139, Potassium 3.6, Chloride 102, Carbon Dioxide 29.0, Anion Gap 8, BUN 19 H, Creatinine 0.98, Estim Creat Clear Calc 60.03, Est GFR (MDRD) Af Amer 72, Est GFR (MDRD) Non-Af 59 L, BUN/Creatinine Ratio 19.4, Glucose 120 H, Calcium 9.3, Troponin I High Sens 4 04/26/24 23:45: Urine Color Yellow, Urine Clarity Clear, Urine pH 6.0, Ur Specific [place] 1.010, Urine Protein Negative, Urine Glucose (UA) Normal, Urine Ketones Negative, Urine Occult Blood Negative, Urine Nitrite Negative, Urine Bilirubin Negative, Urine Urobilinogen Normal, Ur Leukocyte Esterase 25 H, Urine RBC 0 SEEN, Urine WBC 0-5 SEEN, Ur Squamous Epith Cells 0 SEEN, Urine Bacteria 0 SEEN, Urine Mucus 0 SEEN Imaging Radiology Impression Brain CT 04/26/24 22:29 IMPRESSION: No acute abnormality or change. No evidence for acute infarct. No hemorrhage. N.B. : The above Results were Read Back by Arcenio Summers MD to Skyler Rivers MD, and understanding confirmed on 04/26/2024 22:46:53 (ET). Electronically Signed: Arcenio Summers MD at 22:46 EDT , Chest X-Ray 04/26/24 22:29 IMPRESSION: Normal x-ray examination of the chest. Electronically Signed: Arcenio Summers MD at 23:47 EDT , Head/Neck CTA 04/26/24 22:30 IMPRESSION: No large vessel occlusion or flow-limiting stenosis. N.B. : The above Results were Read Back by Ethan Lennon MD to Markell Sanchez DO, and understanding confirmed on 04/26/2024 23:06:22 (ET). Electronically Signed: Ethan Lennon MD at 23:06 EDT , ADDENDUM: 04/26/24 2313 IMPRESSION: No large vessel occlusion or flow-limiting stenosis. N.B. : The above Results were Read Back by Ethan Lennon MD to Markell Sanchez DO, and understanding confirmed on 04/26/2024 23:06:22 (ET). Electronically Signed: Ethan Lennon MD at 23:06 EDT , Assessment & Plan Assessment/Plan (1) Brain TIA: (2) Acute right-sided weakness: (3) Paresthesia: (4) Acute headache: QUALIFIERS: Headache type: unspecified Intractability: not intractable Qualified Code(s): R51.9 - Headache, unspecified (5) History of TIA (transient ischemic attack): (6) Essential hypertension: (7) Hyperlipidemia: QUALIFIERS: Hyperlipidemia type: unspecified Qualified Code(s): E 78.5 - Hyperlipidemia, unspecified (8) Type 2 diabetes mellitus: QUALIFIERS: Diabetes mellitus complication detail: with other neurological complication Diabetes mellitus complication status: with neurologic complications Diabetes mellitus terminal manager insulin use: without terminal manager use Qualified Code(s): E11.49 - Type 2 diabetes mellitus with other diabetic neurological complication (9) Chronic idiopathic thrombocytopenia: PLAN: Plan 1. TIA vs CVA; with transient Right-sided weakness and fall - Admit to PCU under observation status. Continue ECASA and statin. [facility] teleneurology did not recommend Plavix be initiated at this time. Check MRI of the brain to confirm suspicion of possible CVA with patient to be pretreated with Xanax 1 mg PO once one hour prior to MRI. Check carotid doppler to evaluate for possible stenosis. Finally, [facility] teleneurology help was greatly appreciated. 2. History of TIA's with Left-sided weakness; with no residual deficits complicating #1 - Noted. Resume current regimen. 3. Essential hypertension - Hold scheduled antihypertensives for now until CVA definitively ruled out on MRI to allow for 'permissive hypertension'. 4. Hyperlipidemia - Resume statin and check Lipid Profile in light of #1. 5. Morbid obesity; with BMI of 46.4 this admission - Weight loss will be recommended. This complicates her case and may hamper her recovery. 7. JAJA; on nocturnal BiPAP - Resume nocturnal BiPAP as previous. 8. Chronic hypoxic respiratory failure; on home oxygen - Stable. 9. DM-2; of unknown control on Metformin - Hold Metformin. ADA diet. FSBS q. AC/HS plus SSI. Check HgbA1c to objectively evaluate quality if diabetic control. 10. Chronic ITP - Apparently resolved with platelet count of 349K present on admission. 11. History of COVID-19 - Noted. 12. Neuropathy and fibromyalgia - Continue home regimen as previous. 13. Depression with anxiety - Resume home medications as before. 14. OA; with chronic pain syndrome - Stable. Give Tylenol prn. 15. DVT prophylaxis - Lovenox 40 mg sq BID. Total time: Approximately 70 minutes. Charges/Coding Visit Charges OBSV E&M: 35670 Observ/hosp same date L2
--- NOTE | 2024-04-27 00:53 | CDU_ITS ---
Reason For Study: TIA Rt. Velocities/BP Lt. Velocities/BP Prox CCA 46.6/5 cm/sec. Prox CCA 65.5/12.6 cm/sec. Mid CCA 39/9.7 cm/sec. Mid CCA 57.9/11.6 cm/sec. Dist CCA 34.4/6.6 cm/sec. Dist CCA 39/8.8 cm/sec. Prox ICA 35.8/8 cm/sec. Prox ICA 33.3/9.7 cm/sec. Mid ICA 51.5/15.9 cm/sec. Mid ICA 65.5/20.1 cm/sec. Dist ICA 83.4/20.1 cm/sec. Dist ICA 76.8/20.1 cm/sec. Rt. ICA/CCA = 2.14. Lt. ICA/CCA = 1.33. Prox ECA 70.7/5.2 cm/sec. Prox ECA 61.7/6 cm/sec. Rt. Vert. 44.7/12.6 cm/sec. Lt. Vert. 33.4/9 cm/sec. Right Extracranial There is intimal thickening but no significant atherosclerotic plaque noted in the right common carotid artery. There is intimal thickening but no significant atherosclerotic plaque noted in the right internal carotid artery. There is intimal thickening but no significant atherosclerotic plaque noted in the right external carotid artery. Antegrade flow is noted in the right vertebral artery. Left Extracranial There is intimal thickening but no significant atherosclerotic plaque noted in the left common carotid artery. There is intimal thickening but no significant atherosclerotic plaque noted in the left internal carotid artery. There is intimal thickening but no significant atherosclerotic plaque noted in the left external carotid artery. Antegrade flow is noted in the left vertebral artery. Procedure Carotid Duplex 50951. This is a Carotid Duplex examination using B-mode, color flow and specral Doppler. Preliminary report given to Jennifer LOMBARDO. Exam performed portable in patient room. VL/Carotid Duplex Ultrasound Interpretation Summary No significant atherosclerotic plaque or stenosis noted in the internal carotid arteries bilaterally. Flow within the vertebral arteries is antegrade bilaterally. Ordering Physician: Carlos Schwartz Referring Physician: Mauricio Valenzuela Performed By: Tsering Valdes RVT
--- NOTE | 2024-04-27 00:53 | ECHOCS_ITS ---
Reason For Study: TIA/CVA Procedure This was a 2D Doppler, Color Flow transthoracic echocardiogram. The study was technically difficult. The study was technically limited. DUE TO BMI 46.4. Contrast injection was performed. Exam performed portable in patient room. Left Ventricle Normal LV size. The estimated ejection fraction is 55 %. No evidence for diastolic dysfunction. No regional wall motion abnormalities noted. Right Ventricle Normal RV size. Normal systolic function. Atria The left and right atria are normal. No doppler evidence for ASD. Mitral Valve There is no mitral valve stenosis. No mitral valve insufficiency. Tricuspid Valve There is no tricuspid stenosis. Unable to estimate RV systolic pressure due to inadequate jet, pulmonary artery pressure probably normal. Aortic Valve Trisinus/trileaflet aortic valve. There is no aortic stenosis. No aortic valve insufficiency. Pulmonic Valve There is no pulmonic valvular stenosis. No pulmonic valve insufficiency. Great Vessels Normal aortic root. Pericardium/Pleural No pericardial effusion. Medication Diluted definity 4.0ml given slow IV push to enhance endocardial definition. MMode/2D Measurements & Calculations LVIDd: 5.0 cm IVSd: 1.4 cm Ao root diam: 3.6 cm LVIDs: 3.5 cm LVPWd: 1.3 cm RVDd: 3.6 cm FS: 29.5 % LAV(MOD-bp): 55.8 ml LA A4 area: 18.6 cm2 LA dimension(2D): 4.1 cm LAV(MOD-bp) Indexed: 27.0 ml/m2 LAV(MOD-sp2): 56.5 ml LAV(MOD-sp4): 52.5 ml TAPSE: 1.9 cm Time Measurements MV dec time: 0.26 sec Doppler Measurements & Calculations MV E max ashvin: 76.3 cm/sec Lat Peak E' Ashvin: 7.9 cm/sec Med Peak E' Ashvin: 5.8 cm/sec MV A max ashvin: 90.6 cm/sec E/E' lat: 9.6 E/E' med: 13.1 MV E/A: 0.84 MV V2 max: 96.4 cm/sec MV P1/2t max ashvin: 97.9 cm/sec Ao V2 max: 141.7 cm/sec MV max P.7 mmHg MV P1/2t: 80.8 msec Ao max P.0 mmHg MV V2 mean: 60.3 cm/sec MV dec slope: 355.0 cm/sec2 Ao V2 mean: 98.2 cm/sec MV mean P.6 mmHg MVA(P1/2t): 2.7 cm2 Ao mean P.2 mmHg MV V2 VTI: 25.9 cm Ao V2 VTI: 32.9 cm AV (velocity ratio): 0.75 LV V1 max: 94.8 cm/sec PA V2 max: 104.5 cm/sec TR max ashvin: 244.4 cm/sec LV V1 max P.6 mmHg PA V2 mean: 69.4 cm/sec TR max P.9 mmHg LV V1 mean P.1 mmHg LV V1 mean: 69.8 cm/sec LV V1 VTI: 24.8 cm ECHO/Echo Complete W/ Contrast Interpretation Summary The estimated ejection fraction is 55 %. No evidence for diastolic dysfunction. Ordering Physician: Carlos Schwartz Referring Physician: Mauricio Valenzuela Performed By: Akosua Hansen, GUERRERO, RVT
[2024-04-27 01:23] LABS: Hemoglobin A1c 6.4 % (3.8-5.6)
[2024-04-27] MEDS: 0.9% Normal Saline (1000mL) 1,000 ML 50 ML IV (02:03)
[2024-04-27 06:36] LABS: Cholesterol 121 mg/dL (200); High Density Lipoprotein 69 mg/dL; Triglycerides 85 mg/dL; Very Low Density Lipoprotein 17 mg/dL (5-40)
[2024-04-27 07:16] LABS: Bedside Glucose 96 mg/dL (74-106)
[2024-04-27] MEDS: Enoxaparin 40 MG/0.4 ML Syringe SC (08:31)
[2024-04-27] MEDS: Fluoxetine HCl 40 MG CAPSULE 80 MG PO (08:31)
[2024-04-27] MEDS: Aspirin 81 MG TAB.CHEW PO (08:31)
[2024-04-27 08:52] LABS: Vitamin B12 277 pg/mL (211-911)
[2024-04-27] MEDS: ALPRAZolam 0.5 MG Tablet 1 MG PO (09:15)
--- NOTE | 2024-04-27 10:13 | STROKE.PNOTE ---
Objective Data Objective Data Vital Signs: Vital Signs Temp Pulse Resp BP Pulse Ox O2 Del Method O2 Flow Rate 97.6 F L 71 17 127/56 H 96 Nasal Cannula 2 04/27/24 05:24 04/27/24 05:24 04/27/24 05:24 04/27/24 05:24 04/27/24 05:24 04/27/24 05:24 04/27/24 05:24 Oxygen Flow Rate (L/min) 2 Oxygen Delivery Method Nasal Cannula Weight: 117.163 kg Body Mass Index (BMI) 48.8 Lab / Micro Data 04/26/24 22:39 04/26/24 22:39 Labs: Laboratory Results - last 24 hr 04/26/24 22:39: WBC 13.8 H, RBC 4.59, Hgb 12.5, Hct 39.5, MCV 86.1, MCH 27.2, MCHC 31.6 L, RDW Std Deviation 48.1 H, RDW Coeff of Erica 15.2 H, Plt Count 349, MPV 10.1, Immature Gran % (Auto) 0.400, Neut % (Auto) 63.5, Lymph % (Auto) 21.9, [place] % (Auto) 9.6, Eos % (Auto) 4.0, Baso % (Auto) 0.6, Absolute Neuts (auto) 8.8 H, Absolute Lymphs (auto) 3.03, Nucleated RBC % 0, PT 14.3, INR 1.1, APTT 28.0, Sodium 139, Potassium 3.6, Chloride 102, Carbon Dioxide 29.0, Anion Gap 8, BUN 19 H, Creatinine 0.98, Estim Creat Clear Calc 60.03, Est GFR (MDRD) Af Amer 72, Est GFR (MDRD) Non-Af 59 L, BUN/Creatinine Ratio 19.4, Glucose 120 H, Hemoglobin A1c 6.4 H, Calcium 9.3, Troponin I High Sens 4, TSH 3.240 04/26/24 23:45: Urine Color Yellow, Urine Clarity Clear, Urine pH 6.0, Ur Specific [place] 1.010, Urine Protein Negative, Urine Glucose (UA) Normal, Urine Ketones Negative, Urine Occult Blood Negative, Urine Nitrite Negative, Urine Bilirubin Negative, Urine Urobilinogen Normal, Ur Leukocyte Esterase 25 H, Urine RBC 0 SEEN, Urine WBC 0-5 SEEN, Ur Squamous Epith Cells 0 SEEN, Urine Bacteria 0 SEEN, Urine Mucus 0 SEEN 04/27/24 05:43: Triglycerides 85, Cholesterol 121, LDL Cholesterol 35, VLDL Cholesterol 17, HDL Cholesterol 69, Vitamin B12 277, Folate 4.70 04/27/24 06:24: POC Glucose 96 Radiography Diagnostic Testing: Radiology Impression Brain CT 04/26/24 22:29 IMPRESSION: No acute abnormality or change. No evidence for acute infarct. No hemorrhage. N.B. : The above Results were Read Back by Arcenio Summers MD to Skyler Rivers MD, and understanding confirmed on 04/26/2024 22:46:53 (ET). Electronically Signed: Arcenio Summers MD at 22:46 EDT , Chest X-Ray 04/26/24 22:29 IMPRESSION: Normal x-ray examination of the chest. Electronically Signed: Arcenio Summers MD at 23:47 EDT , Head/Neck CTA 04/26/24 22:30 IMPRESSION: No large vessel occlusion or flow-limiting stenosis. N.B. : The above Results were Read Back by Ethan Lennon MD to Markell Sanchez DO, and understanding confirmed on 04/26/2024 23:06:22 (ET). Electronically Signed: Ethan Lennon MD at 23:06 EDT , ADDENDUM: 04/26/24 2313 IMPRESSION: No large vessel occlusion or flow-limiting stenosis. N.B. : The above Results were Read Back by Ethan Lennon MD to Markell Sanchez DO, and understanding confirmed on 04/26/2024 23:06:22 (ET). Electronically Signed: Ethan Lennon MD at 23:06 EDT , Subject: Neurology Subjective 127/56. Patient was away at testing so I was unable to see Assessment and Plan: Stroke Assessment/Plan BRI FLORIAN is a 73 year old F with history of HTN, HL, JAJA on BIPAP, COPD on home O2, DM, and prior TIA on 04/26/2024 at 330pdeveloped LOJA 9/10, then at 930p developed right face/arm/leg weakness and tingling that caused a fall. Telestroke evaluted and NIHSS-2. Symptoms resolved in ER. CT brain negative. CTA head/neck negative. She was admitted for TIA workup. LDL 35, HgbA1c 6.3. TTE EF 65%. Patient is on Asa, lipitor 40, and lovenox SQ. ASSESSMENT/PLAN: Suspected TIA 1) TIA work-up recommended including MRI brain 2) Continue daily daily anti-platelet medication. On Asa 3) Continue vascular risk factor modification. On lipitor 40. 4) Patient may DC after TIA work-up completed. Follow-up in outpatient neurology clinic. Primary team messaged recommendations on backline.
--- NOTE | 2024-04-27 10:15 | MRI_ITS ---
STUDY: MRI BRAIN WITHOUT CONTRAST REASON FOR EXAM: Female, 73 years old. Transient Right-sided weakness with fall and headache, hx of stroke compare to previous TECHNIQUE: Standardized multiplanar fat and water weighted pulse sequences were obtained. COMPARISON: CT April 26, 2024 FINDINGS: Normal size of the ventricles and extra-axial spaces for the patient''s age. There are multiple white matter hyperintensities, distributed throughout the deep white matter tracts of the cerebral hemispheres, consistent with moderate chronic white matter ischemic changes. There is no evidence for recent intracranial ischemia or other cause of cytotoxic edema on diffusion weighted imaging (DWI). Normal T2* images of the brain without demonstrated susceptibility artifact. There is no demonstrated hemosiderin stain. Normal bilateral basal ganglia. Normal thalami. There is no extra-axial fluid accumulation. Normal flow voids within the major intracranial circulation suggesting patency by spin echo criteria. Normal sella turcica, pituitary gland, infundibular stalk, optic chiasm and hypothalamus. Normal tectal plate and pineal gland. Normal midbrain, elias and medulla. Normal cerebellum. Normal basal cisterns. Normal bilateral temporal bones. Normal bilateral internal auditory canals. No demonstrated orbital abnormality, within the constraints of a routine brain study. Normal visualized paranasal sinuses. Normal calvarium and skull base. Normal visualized soft tissue structures. Normal visualized upper cervical spine. MRI/Brain without Contrast IMPRESSION: Involutional changes of the brain, as described above. Electronically Signed: Blair Bui MD at 11:48 EDT ,
--- NOTE | 2024-04-27 12:40 | DCINST_ITS ---
Discharge Instructions Diet Discharge Diet: 1800 Calorie Control Diet Activity Discharge Activity: Return to Normal Activity Weight Bearing Status: Full weight bearing Follow Up Care Test Results: Test results from this visit will be discussed in further detail at your follow- up appointment, if applicable. Discharge Plan Admission Admit Date/Time: 04/27/24 00:46 Primary Reason for Your Visit: TIA Attending Provider: Omar Ball Primary Care Provider: Les Valenzuela Consulting Providers: Singh Luna; Mynor Banda; Elizabeth Camarena; Jennifer Johnston; Neena Purdy; Tres Hines; Yoko Londono; Grant Bonilla; Godfrey Valdez; Harrison Garcia; Barbara Baez; Leonard Morales; Svetlana Nelson; Bettina Fernandez; Anais Arreguin; Morris Drummond; Dagoberto Patel; Diaz Correia; Diane Torres; Tennille Rudd; Carlos Schwartz Discharge Orders/Prescriptions Prescriptions: Continued calcium carbonate-vitamin D3 [Calcium 500 + D] 500 mg(1,250mg) -200 unit tablet 2 tab PO DAILY rosuvastatin 20 mg tablet 20 mg PO DAILY fluoxetine 40 MG capsule 80 mg PO DAILY Patient Comments: amlodipine 10 mg tablet 10 mg PO DAILY Patient Comments: TAKE 1 TABLET BY MOUTH ONCE DAILY losartan 100 mg tablet 100 mg PO DAILY Patient Comments: TAKE 1 TABLET BY MOUTH ONCE DAILY metformin 500 mg tablet extended release 24 hr 1,000 mg PO BID Patient Comments: TAKE 2 TABLETS BY MOUTH TWICE DAILY BEFORE MEAL(S) aspirin 81 mg Capsule 81 mg PO DAILY primidone 50 mg tablet 25 mg PO QHS carvedilol 12.5 mg tablet 12.5 mg PO BID hydrochlorothiazide 25 mg tablet 25 mg PO DAILY albuterol sulfate 2.5 mg /3 mL (0.083 %) solution for nebulization 2.5 mg inhalation Q4H PRN (Reason: Sob &/Or Wheezing) Qty: 75 3RF Rx Instructions: J47.9 albuterol sulfate 90 mcg/actuation HFA aerosol inhaler 2 puff INHALATION Q4H PRN (Reason: Sob &/Or Wheezing) Qty: 8.5 6RF Referrals / Follow Up: Les Valenzuela MD [Primary Care Provider] - Within 2 Weeks Disposition Disposition (needs filled in before D/C Order can be placed): Home, Self Care
--- NOTE | 2024-04-27 12:44 | PCM.DC.SUM ---
Providers Date of Admission: 04/27/24 Date of Discharge: 04/27/24 Primary Care Physician: Dr. Les Valenzuela MD Consultations 04/27/24 01:16 Consult: Tele-Neurology Routine Consulting Provider: [facility] Reason for Consult: Acute Ischemic Stroke/TIA EMERGENT Consult: No MD Notified: Yes Date Notified: 04/27/24 Time Notified: 00:48 Method of Notification: ED Physician Initiated Method of Consult:: Telemedicine Nursing Unit Staff Notify [facility] of Tele-Neurology Consult: Yes Reason For Visit: TIA VS CVA WITH TRANSIENT RIGHT SIDED WEAKNESS AND Diagnosis Discharge Diagnosis (1) Brain TIA: Status: Acute Code(s): G45.9 - Transient cerebral ischemic attack, unspecified (2) Acute right-sided weakness: Status: Acute Code(s): R53.1 - Weakness (3) Paresthesia: Status: Acute Code(s): R20.2 - Paresthesia of skin (4) Acute headache: Status: Acute Code(s): R51.9 - Headache, unspecified Qualifiers: Headache type: unspecified Intractability: not intractable Qualified Code(s): R51.9 - Headache, unspecified (5) History of TIA (transient ischemic attack): Status: Acute Code(s): Z86.73 - Personal history of transient ischemic attack (TIA), and cerebral infarction without residual deficits (6) Essential hypertension: Status: Chronic Code(s): I10 - Essential (primary) hypertension (7) Hyperlipidemia: Status: Chronic Code(s): E78.5 - Hyperlipidemia, unspecified Qualifiers: Hyperlipidemia type: unspecified Qualified Code(s): E78.5 - Hyperlipidemia, unspecified (8) Type 2 diabetes mellitus: Status: Chronic Code(s): E11.9 - Type 2 diabetes mellitus without complications Qualifiers: Diabetes mellitus complication detail: with other neurological complication Diabetes mellitus complication status: with neurologic complications Diabetes mellitus extermination inspector insulin use: without extermination inspector use Qualified Code(s): E11.49 - Type 2 diabetes mellitus with other diabetic neurological complication (9) Chronic idiopathic thrombocytopenia: Status: Chronic Code(s): D69.3 - Immune thrombocytopenic purpura Plan 1. Transient ischemic attack #2 type 2 diabetes #3 essential hypertension #4 hyperlipidemia #5 morbid obesity #6 chronic hypoxic respiratory failure Medications at Discharge Home Medications fluoxetine 40 mg capsule 80 mg PO DAILY mental health 02/22/18 calcium carbonate 500 mg-vitamin D3 5 mcg (200 unit) tablet (Calcium 500 + D) 2 tab PO DAILY SUPPLEMENT 07/11/19 albuterol sulfate 2.5 mg/3 mL (0.083 %) solution for nebulization 2.5 mg (3 mL) inhalation Q4H PRN Sob &/Or Wheezing #75 mL 05/13/21 amlodipine 10 mg tablet 10 mg PO DAILY bp 04/26/22 aspirin 81 mg capsule 81 mg PO DAILY blood thinner 04/26/22 losartan 100 mg tablet 100 mg PO DAILY bp 04/26/22 metformin 500 mg tablet,extended release 24 hr 1,000 mg PO BID diabetes 04/26/22 rosuvastatin 20 mg tablet 20 mg PO DAILY cholesterol 12/23/22 albuterol sulfate 90 mcg/actuation aerosol inhaler 2 puff inhalation Q4H PRN Sob &/Or Wheezing #8.5 grams 09/09/23 carvedilol 12.5 mg tablet 12.5 mg PO BID blood pressure 04/26/24 hydrochlorothiazide 25 mg tablet 25 mg PO DAILY diuretic 04/26/24 primidone 50 mg tablet 25 mg PO QHS seizures 04/26/24 Hospital Course Operations None Procedures 2-D Echocardiogram Summary of Care Provided Minutes Spent on Discharge: 32 Hospital Course: Patient was seen in the emergency room at [facility] after being brought in by EMS for possible stroke, a stroke team was called, patient complained of not feeling well and having a headache in the central region, she also complained of weakness on the right side of her body and a fall to the right. Workup in the emergency room included a CTA of the head and neck and a CT of the brain, these did not show any acute process or large vessel occlusion. Patient's NIH score on admission to the ER was 5, follow-up score was 1. Patient was evaluated by stroke neurologist, TNK was not recommended and the patient was placed on a baby aspirin daily and she was admitted to PCU. Patient was seen by PT OT and speech therapy, she had an echocardiogram performed which showed no evidence of [id number] shunt, she had an MRI performed which showed no evidence of acute stroke. On 04/27/2024, patient was seen and examined: On examination she appeared in good health and spirits, she does not appear to be in any distress. Patient is morbidly obese. Vital signs as documented. Skin warm and dry and without overt rashes. Neck without JVD, thyroid appears normal, trachea is midline, neck is supple. Lungs clear, normal air movement was noted. Heart exam notable for regular rhythm, normal sounds and absence of murmurs, rubs or gallops. Abdomen unremarkable and without evidence of organomegaly, masses, or abdominal aortic enlargement, bowel sounds are present in all 4 quadrants, no abdominal tenderness was noted. Extremities nonedematous, no cyanosis was noted, no clubbing was noted. Neuro: Cranial nerves II through XII are grossly intact, no focal motor deficits were noted, sensation to light touch and pinprick is intact, motor exam 5/5 throughout. Psych: Patient is alert and oriented x3, she does not appear anxious or depressed, she does not appear agitated. Patient was discharged home in stable condition on 04/27/2024 Weight / BMI Weight Weight: 117.163 kg Body Mass Index (BMI) 48.8 ABG / Lab / Microbiology Data 04/26/24 22:39 04/26/24 22:39 Laboratory: Laboratory Results - last 24 hr 04/26/24 22:39: WBC 13.8 H, RBC 4.59, Hgb 12.5, Hct 39.5, MCV 86.1, MCH 27.2, MCHC 31.6 L, RDW Std Deviation 48.1 H, RDW Coeff of Erica 15.2 H, Plt Count 349, MPV 10.1, Immature Gran % (Auto) 0.400, Neut % (Auto) 63.5, Lymph % (Auto) 21.9, [place] % (Auto) 9.6, Eos % (Auto) 4.0, Baso % (Auto) 0.6, Absolute Neuts (auto) 8.8 H, Absolute Lymphs (auto) 3.03, Nucleated RBC % 0, PT 14.3, INR 1.1, APTT 28.0, Sodium 139, Potassium 3.6, Chloride 102, Carbon Dioxide 29.0, Anion Gap 8, BUN 19 H, Creatinine 0.98, Estim Creat Clear Calc 60.03, Est GFR (MDRD) Af Amer 72, Est GFR (MDRD) Non-Af 59 L, BUN/Creatinine Ratio 19.4, Glucose 120 H, Hemoglobin A1c 6.4 H, Calcium 9.3, Troponin I High Sens 4, TSH 3.240 04/26/24 23:45: Urine Color Yellow, Urine Clarity Clear, Urine pH 6.0, Ur Specific [place] 1.010, Urine Protein Negative, Urine Glucose (UA) Normal, Urine Ketones Negative, Urine Occult Blood Negative, Urine Nitrite Negative, Urine Bilirubin Negative, Urine Urobilinogen Normal, Ur Leukocyte Esterase 25 H, Urine RBC 0 SEEN, Urine WBC 0-5 SEEN, Ur Squamous Epith Cells 0 SEEN, Urine Bacteria 0 SEEN, Urine Mucus 0 SEEN 04/27/24 05:43: Triglycerides 85, Cholesterol 121, LDL Cholesterol 35, VLDL Cholesterol 17, HDL Cholesterol 69, Vitamin B12 277, Folate 4.70 04/27/24 06:24: POC Glucose 96 Radiography Diagnostic Testing: Radiology Impression Brain CT 04/26/24 22:29 IMPRESSION: No acute abnormality or change. No evidence for acute infarct. No hemorrhage. N.B. : The above Results were Read Back by Arcenio Summers MD to Skyler Rivers MD, and understanding confirmed on 04/26/2024 22:46:53 (ET). Electronically Signed: Arcenio Summers MD at 22:46 EDT , Chest X-Ray 04/26/24 22:29 IMPRESSION: Normal x-ray examination of the chest. Electronically Signed: Arcenio Summers MD at 23:47 EDT , Head/Neck CTA 04/26/24 22:30 IMPRESSION: No large vessel occlusion or flow-limiting stenosis. N.B. : The above Results were Read Back by Ethan Lennon MD to Markell Sanchez DO, and understanding confirmed on 04/26/2024 23:06:22 (ET). Electronically Signed: Ethan Lennon MD at 23:06 EDT , ADDENDUM: 04/26/24 2313 IMPRESSION: No large vessel occlusion or flow-limiting stenosis. N.B. : The above Results were Read Back by Ethan Lennon MD to Markell Sanchez DO, and understanding confirmed on 04/26/2024 23:06:22 (ET). Electronically Signed: Ethan Lennon MD at 23:06 EDT , Brain MRI 04/27/24 10:15 IMPRESSION: Involutional changes of the brain, as described above. Electronically Signed: Blair Bui MD at 11:48 EDT , D/C Instructions Discharge Diet: 1800 Calorie Control Diet Weight Bearing Status: Full weight bearing Meaningful Use Info Meaningful Use Meaningful Use Diagnoses (Choose all that apply): None applicable Ischemic Stroke Statin Dosing Therapy Reference: STATIN DOSE THERAPY REFERENCE: * Patients > 75 years receive moderate or high dose statin therapy. * Patients 75 years or YOUNGER should receive HIGH intensity statin dose unless contraindicated. You will be required to document reason for non-treatment if statin daily dose does not meet guidelines. HIGH DOSE STATIN THERAPY DAILY Atorvastatin > than or = to 40 mg Rosuvastatin > than or = to 20 mg Amlodipine + Atorvastatin > than or = to 2.5/40 mg Ezetimibe + Simvastatin 10/80 mg Simvastatin 80mg Discharge Plan Admission Admit Date/Time: 04/27/24 00:46 Primary Reason for Your Visit: TIA Attending Provider: Omar Ball Primary Care Provider: Les Valenzuela Consulting Providers: Singh Luna; Mynor Banda; Elizabeth Camarena; Jennifer Johnston; Neena Purdy; Tres Hines; Yoko Londono; Grant Bonilla; Godfrey Valdez; Harrison Garcia; Barbara Baez; Leonard Morales; Svetlana Nelson; Bettina Fernandez; Anais Arreguin; Morris Drummond; Dagoberto Patel; Diaz Correia; Diane Torres; Tennille Rudd; Carlos Schwartz Discharge Orders/Prescriptions Prescriptions: Continued calcium carbonate-vitamin D3 [Calcium 500 + D] 500 mg(1,250mg) -200 unit tablet 2 tab PO DAILY rosuvastatin 20 mg tablet 20 mg PO DAILY fluoxetine 40 MG capsule 80 mg PO DAILY Patient Comments: amlodipine 10 mg tablet 10 mg PO DAILY Patient Comments: TAKE 1 TABLET BY MOUTH ONCE DAILY losartan 100 mg tablet 100 mg PO DAILY Patient Comments: TAKE 1 TABLET BY MOUTH ONCE DAILY metformin 500 mg tablet extended release 24 hr 1,000 mg PO BID Patient Comments: TAKE 2 TABLETS BY MOUTH TWICE DAILY BEFORE MEAL(S) aspirin 81 mg Capsule 81 mg PO DAILY primidone 50 mg tablet 25 mg PO QHS carvedilol 12.5 mg tablet 12.5 mg PO BID hydrochlorothiazide 25 mg tablet 25 mg PO DAILY albuterol sulfate 2.5 mg /3 mL (0.083 %) solution for nebulization 2.5 mg inhalation Q4H PRN (Reason: Sob &/Or Wheezing) Qty: 75 3RF Rx Instructions: J47.9 albuterol sulfate 90 mcg/actuation HFA aerosol inhaler 2 puff INHALATION Q4H PRN (Reason: Sob &/Or Wheezing) Qty: 8.5 6RF Referrals / Follow Up: Les Valenzuela MD [Primary Care Provider] - Within 2 Weeks Disposition Disposition (needs filled in before D/C Order can be placed): Home, Self Care Charges/Coding Visit Charges Inpatient E&M: 28356 Disch Hosp >30min
--- NOTE | 2024-04-27 12:52 | CHAPLAIN ---
Type of Pastoral Visit _x__ Initial Visit ___ Follow-up Visit ___ On-call Visit ___ General Patient Visit ___ Spiritual Assessment ___ Family Conference ___ Bereavement ___ Rapid Response ___ Code Blue ___ Other (describe below) Pastoral Care Referral From _x__ Patient ___ Family ___ Nurse ___ Physician ___ Fastener Technologist ___ Mobile Home Installer ___ Other (describe below) Sacrament/Intervention _x__ Active listening ___ Anointing ___ Lutheran ___ Bereavement ___ Communion ___ Amy exploration ___ _x__ Life review ___ Prayer ___ Reconciliation ___ Sacrament of Sick ___ Supportive presence ___ Wedding ___ Other (describe below) Pastoral Comments patient was resting in her chair but awakened easily as this press maintainer entered the room; pt states that she had her tests done and was given a relaxer to help with that; pt says that she is doing better today than yesterday and hopes she can go home; pt gives account of other health emergencies that all came in April of last few years; pt has family support; pt denies further needs but gives thanks for the visit and checking on me
--- NOTE | 2024-04-27 13:13 | CASEMGMT ---
SW completed a PHQ 9 with patient. Patient scored a 2 which indicates minimal depression. Patient denied any need for counseling resources. Thi URIARTE
--- NOTE | 2024-04-27 13:41 | CASEMGMT ---
Patient has order for discharge. RN CM in to discuss needs at discharge, family at bedside. Patient denies needs or help at discharge. Patient had no further questions or concerns.
--- NOTE | 2024-04-27 14:15 | NURSING ---
1230 -mri results back and dr. beth will dc her nih and stroke vs dc'd as was negative
== END 2024-04-27 12:43 | disposition home or self-care (01) ==
LOC: ED 23:16 → PCU 04-27 00:58
PROVIDERS: Admitting Provider Internal Medicine; Emergency Provider Emergency Medicine; PCP Family Medicine; Visit Provider Internal Medicine
DX: G45.9 Transient cerebral ischemic attack, unspecified (principal); D69.3 Immune thrombocytopenic purpura; J96.11 Chronic respiratory failure with hypoxia; J44.9 Chronic obstructive pulmonary disease, unspecified; Z68.42 Body mass index [BMI] 45.0-49.9, adult; E66.01 Morbid (severe) obesity due to excess calories; E11.49 Type 2 diabetes mellitus with other diabetic neurological complication; R29.898 Other symptoms and signs involving the musculoskeletal system; I10 Essential (primary) hypertension; I44.4 Left anterior fascicular block; Z86.73 Personal history of transient ischemic attack (TIA), and cerebral infarction without residual deficits; Z79.84 Long term (current) use of oral hypoglycemic drugs; M19.90 Unspecified osteoarthritis, unspecified site; G89.4 Chronic pain syndrome; Z87.891 Personal history of nicotine dependence; M79.7 Fibromyalgia; F41.8 Other specified anxiety disorders; I44.0 Atrioventricular block, first degree; E78.5 Hyperlipidemia, unspecified; R94.31 Abnormal electrocardiogram [ECG] [EKG]; Z79.899 Other long term (current) drug therapy; R29.810 Facial weakness; Z99.81 Dependence on supplemental oxygen; R53.1 Weakness; R29.705 NIHSS score 5
CPT/HCPCS: 36415; 70450; 70496; 70498; 70551; 71045; 80048; 80061; 81001; 82607; 82746; 82962; 83036; 84443; 84484; 85025; 85610; 85730; 93005; 93306; 93880; 94762; 96372; 97802; 99221; 99285; J7030; Q9957; Q9967; A4216; C8929; G0378

== ENCOUNTER → 2024-10-26 | Outpatient (CLI) | payer MEDICARE, SELFPAY ==
[2024-10-30 22:07] LABS: B. pertussis IgA 1.6 index (0.0-0.9); B. pertussis IgG 2.17 index (0.00-0.94); B. pertussis IgM < 1.0 index (0.0-0.9)
== END | disposition home or self-care (01) ==
LOC: LAB 15:26
PROVIDERS: PCP Family Medicine; Referring Provider Nurse Practitioner Family; Visit Provider Nurse Practitioner Family
DX: R05.3 Chronic cough (principal)
CPT/HCPCS: 36415; 86615

== ENCOUNTER → 2025-01-31 | Outpatient (CLI) | payer MEDICARE, SELFPAY | END | disposition home or self-care (01) | LOC: PSN 07:45 | PROVIDERS: PCP Family Medicine; Referring Provider Nurse Practitioner Family; Visit Provider Nurse Practitioner Family | DX: R05.3 Chronic cough (principal) | CPT/HCPCS: 94060; 94726; 94729 ==

== ENCOUNTER 2025-05-01 13:21 | Outpatient (RCR) | payer MEDICARE, SELFPAY | END 2025-05-12 23:59 | LOC: NS 13:21 | PROVIDERS: PCP Family Medicine; Referring Provider Nurse Practitioner Primary Care; Visit Provider Nurse Practitioner Primary Care | DX: Z71.3 Dietary counseling and surveillance (principal); E66.813 Obesity, class 3; E11.9 Type 2 diabetes mellitus without complications; Z68.42 Body mass index [BMI] 45.0-49.9, adult | CPT/HCPCS: 97802 ==

== ENCOUNTER 2025-06-03 09:58 | Outpatient (RCR) | payer MEDICARE, SELFPAY | END 2025-06-11 23:59 | LOC: NS 09:58 | PROVIDERS: PCP Family Medicine; Referring Provider Nurse Practitioner Primary Care; Visit Provider Nurse Practitioner Primary Care | DX: Z71.3 Dietary counseling and surveillance (principal); E11.9 Type 2 diabetes mellitus without complications; E66.813 Obesity, class 3; Z68.42 Body mass index [BMI] 45.0-49.9, adult | CPT/HCPCS: 97803 ==

== ENCOUNTER 2025-07-16 10:05 | Outpatient (RCR) | payer MEDICARE, SELFPAY | END 2025-08-11 23:59 | LOC: NS 10:05 | PROVIDERS: PCP Family Medicine; Referring Provider Nurse Practitioner Primary Care; Visit Provider Nurse Practitioner Primary Care | DX: Z71.3 Dietary counseling and surveillance (principal); E11.9 Type 2 diabetes mellitus without complications; E66.813 Obesity, class 3; Z68.42 Body mass index [BMI] 45.0-49.9, adult | CPT/HCPCS: 97803 ==